=== PATIENT | female | born 1940 | race Caucasian/White ===

== ENCOUNTER → 2016-12-08 | Outpatient (CLI) | payer MEDICARE ==
[~2016-12-08] MED LIST: DENOSUMAB 60 MG/ML 1 ML SYRINGE SQ ONE
[2016-12-08 11:57] VITALS: BP 184/89; PULSE 72; RESP 16; TEMP 98.1
== END ==
LOC: PROCWHC3 10:55
PROVIDERS: ATTEND Internal Medicine Endocrinology, Diabetes & Metabolism
DX: M81.0 Age-related osteoporosis without current pathological fracture (principal)
CPT/HCPCS: 96372; J0897

== ENCOUNTER → 2017-02-01 | Outpatient (CLI) | payer MEDICARE ==
--- NOTE | 2017-02-02 07:54 | US ---
EXAMINATION TYPE: US carotid duplex BILAT DATE OF EXAM: 02/01/2017 COMPARISON: NONE CLINICAL HISTORY: Aortic Regurgitation I35.1. Multiple TIA; diabetic EXAM MEASUREMENTS: RIGHT: Peak Systolic Velocity (PSV) cm/sec ----- Right CCA: 50.2 ----- Right ICA: 101.8 ----- Right ECA: 52.5 ICA/CCA ratio: 2.0 RIGHT: End Diastole cm/sec ----- Right CCA: 15.0 ----- Right ICA: 36.1 ----- Right ECA: 11.8 LEFT: Peak Systolic Velocity (PSV) cm/sec ----- Left CCA: 74.0 ----- Left ICA: 74.0 ----- Left ECA: 52.6 ICA/CCA ratio: 1.0 LEFT: End Diastole cm/sec ----- Left CCA: 14.7 ----- Left ICA: 18.4 ----- Left ECA: 7.2 VERTEBRALS (direction of flow): Right Vertebral: Antegrade Left Vertebral: Antegrade High bifurcation is noted bilaterally with mild intimal wall thickening also noted bilaterally and PS V is wnl; tortuous CCA is noted bilaterally. IMPRESSION: There is antegrade flow in the vertebral arteries. The images and measurements suggest 1 0-15% stenosis in both internal carotid arteries. There are tortuous carotid arteries. Criteria for Assigning % of Stenosis / Diameter reduction (Estimation based on the indirect measurements of the internal carotid artery velocities (ICA PSV). 1. Normal (no stenosis)=ICA PSV < 125 cm/s: ratio < 2.0: ICA EDV<40 cm/s. 2. Less than 50% stenosis=ICA PSV < 125 cm/s: ratio < 2.0: ICA EDV<40 cm/s. 3. 50 to 69% stenosis=ICA PSV of 125 to 230 cm/s: ration 2.0 ? 4.0: ICA EDV 40-100 cm/s. 4. Greater than 70% stenosis to near occlusion= ICA PSV > 230 cm/s: ratio > 4.0: ICA EDV > 100 cm/s. 5. Near occlusion= ICA PSV velocities may be low or undetectable: variable ratio and ICA EDV. 6. Total occlusion=unable to detect flow.
== END | disposition home or self-care (01) ==
LOC: RADUSWWP 15:01
PROVIDERS: ATTEND Thoracic Surgery (Cardiothoracic Vascular Surgery)
DX: I35.1 Nonrheumatic aortic (valve) insufficiency (principal)
CPT/HCPCS: 93880

== ENCOUNTER → 2017-02-23 | Outpatient (CLI) | payer MEDICARE ==
[2017-02-23 09:01] LABS: EKG EKG PERFORMED
[2017-02-23 09:53] LABS: CHCM 30.3; HCT 35.1 % (34.0-46.0); HDW 3.08; HGB 10.8 gm/dL (11.4-16.0); Hypochromasia Marked; MCH 19.6 pg (25.0-35.0); MCHC 30.9 g/dL (31.0-37.0); MCV 63.3 fL (80.0-100.0); Mean Platelet Volume 6.9; Microcytosis Marked; RBC 5.54 m/uL (3.80-5.40); RDW 15.7 % (11.5-15.5); WBC 6.8 k/uL (3.8-10.6)
[2017-02-23 10:14] LABS: ALT 40 U/L (9-52); AST 21 U/L (14-36); Alkaline Phosphatase 65 U/L (38-126); Anion Gap 12 mmol/L; Blood Urea Nitrogen 24 mg/dL (7-17); Calcium 9.6 mg/dL (8.4-10.2); Carbon Dioxide 28 mmol/L (22-30); Chloride 104 mmol/L (98-107); Cholesterol 152 mg/dL (<200); Glucose 242 mg/dL (74-99); HDL Cholesterol 57 mg/dL (40-60); Magnesium 1.7 mg/dL (1.6-2.3); Non-African American GFR(MDRD) 41 (>60 ml/min/1.73 sqM); Potassium 3.3 mmol/L (3.5-5.1); Sodium 144 mmol/L (137-145); Total Bilirubin 0.6 mg/dL (0.2-1.3); Triglycerides 201 mg/dL (<150)
[2017-02-23 10:34] LABS: INR 1.1 (<1.2)
[2017-02-23 10:35] LABS: Prothrombin Time 11.3 sec (9.0-12.0)
[2017-02-23 10:36] LABS: Hepatitis B Surface Ag Index 0.05
[2017-02-23 10:42] LABS: Hepatitis B Core IgM Index 0.02
[2017-02-23 10:54] LABS: Hepatitis C Virus IgG Ab Negative (Negative); Hepatitis C Virus IgG Index 0.06
[2017-02-23 11:03] LABS: Partial Thromboplastin Time 21.6 sec (22.0-30.0)
[2017-02-23 11:32] LABS: Appearance,Urine Clear (Clear); Bacteria,Urine Rare /hpf; Bilirubin,Urine Negative (Negative); Glucose,Urine (UA) 3+ (Negative); Granular Casts,Urine 1 /lpf (0); Ketones,Urine Negative (Negative); Leukocyte Esterase,Urine Small (Negative); Mucus,Urine Rare /hpf; Nitrite,Urine Negative (Negative); PH, Urine 6.5 (5.0-8.0); Particle Count 1272; Protein,Urine Negative (Negative); RBC,Urine <1 /hpf (0-5); Specific Gravity,Urine 1.013 (1.001-1.035); Squamous Epithelial Cell,Urine 1 /hpf (0-4); UA Billing (MACRO vs. MICRO) MICRO; Urobilinogen,Urine <2.0 mg/dL (<2.0); WBC,Urine 4 /hpf (0-5)
--- NOTE | 2017-02-23 13:36 | XR ---
EXAMINATION TYPE: XR chest 2V DATE OF EXAM: 02/23/2017 COMPARISON: None HISTORY: 76-year-old female preoperative evaluation, aortic valve stenosis. TECHNIQUE: Frontal and lateral views FINDINGS: The heart is borderline to mildly enlarged. Minimal elongation of the thoracic aorta. Mild interstiti al prominence has a chronic appearance. Strandy atelectasis at the left base. No consolidation or ple ural effusion. IMPRESSION: Borderline to mild cardiomegaly. Chronic appearing changes without acute process.
[2017-02-23 15:23] LABS: Hemoglobin A1C 7.5 % (4.2-6.1)
== END | disposition home or self-care (01) ==
LOC: LABPAT 08:54
PROVIDERS: ATTEND Thoracic Surgery (Cardiothoracic Vascular Surgery)
DX: Z01.810 Encounter for preprocedural cardiovascular examination (principal); I51.7 Cardiomegaly; J98.4 Other disorders of lung
CPT/HCPCS: 71020; 80053; 80061; 80074; 81001; 83036; 83735; 83880; 84443; 84484; 85027; 85610; 85730; 86850; 86900; 86901; 86920; 87070; 87086; 93005; 93923; 93970; 94150

== ENCOUNTER 2017-03-04 05:44 | Inpatient (IN) | payer MEDICARE ==
[~2017-03-04 05:44] MED LIST changes: +ALBUMIN HUMAN 25% 50 ML IV ONE; +ALBUMIN HUMAN 5% 250 ML IVPB ONE; +AMINOCAPROIC ACID 250 MG/ML 20 ML VIAL IV ONE; +AMINOCAPROIC ACID 5,000 MG in DEXTROSE 5% IN WATER 50 ML IV ONE; +ASPIRIN 325 MG TAB PO ONE; +ATORVASTATIN 10 MG TAB PO ONE; +CALCIUM CHLORIDE 100 MG/ML 10 ML SYRINGE IV ONE; +CHLORHEXIDINE GLUCONATE 15 ML CUP MUCOUS MEM ONE; +CLEVIDIPINE BUTYRATE 25 MG in EMPTY BAG 1 BAG IV ONE; -DENOSUMAB 60 MG/ML 1 ML SYRINGE SQ ONE; +DEXTROSE 5% IN WATER 1,000 ML with POTASSIUM CHLORIDE 110 MEQ, MAGNESIUM SULFATE 16 MEQ... IV SCH; +DEXTROSE 5% IN WATER 1,000 ML with POTASSIUM CHLORIDE 25 MEQ, SODIUM CHLORIDE 4MEQ/ML V... IV SCH; +HEPARIN SODIUM 1,000 UN/ML (10ML VL) IV ONE; +HEPARIN SODIUM,PORCINE 5,000 UNIT in SODIUM CHLORIDE 0.9% 500 ML IV ONE; +INSULIN REGULAR 100 UNIT in SODIUM CHLORIDE 0.9% 100 ML IV ONE; +MAGNESIUM SULFATE MG 500 MG/ML VIAL IV ONE; +MANNITOL 25% 12.5 GM/50 ML VIAL IV ONE; +METOPROLOL TARTRATE 12.5 MG TAB PO ONE; +NITROGLYCERIN-D5W PMX 25 MG/250 ML BTL IV ONE; +NITROGLYCERIN-D5W PMX 50 MG in DEXTROSE/WATER 1 250ML.BAG IV ONE; +NOREPINEPHRIN 4 MG-0.9% NS PMX 4 MG/250 ML ML IV ONE; +PHENYLEPHRINE 40 MG in SODIUM CHLORIDE 0.9% 250 ML IV ONE; +PHENYLEPHRINE-0.9% NACL SYG 1 MG/10 ML SYRINGE IV ONE; +PROPOFOL 1,000 MG/100 ML VIAL IV ONE; +PROTAMINE SULFATE 10 MG/ML 25 ML VIAL IV ONE; +PROTAMINE SULFATE 250 MG in EMPTY BAG 1 BAG IV ONE; +SODIUM BICARB 8.4% 50 ML SYR (1 MEQ/ML) IV ONE; +VANCOMYCIN 1,000 MG in SODIUM CHLORIDE 0.9% 100 ML IVPB ONE; +VANCOMYCIN 1,000 MG in SODIUM CHLORIDE 0.9% IRRIGATIO 1,000 ML IRRIGATION ONE
[2017-03-04] MEDS ORDERED: ALBUMIN HUMAN 5% 500 ML IVPB ONE (06:00)
[2017-03-04 06:23] LABS: Glucose,Whole Blood 209 mg/dL (75-99)
[2017-03-04] MEDS ORDERED: SODIUM CHLORIDE 0.9% IRRIG 1,000 ML BTL IRRIGATION ONE ×2 (09:00→19:13)
[2017-03-04] MEDS ORDERED: PHENYLEPHRINE-0.9% NACL SYG 1 MG/10 ML SYRINGE ONE (09:00)
[2017-03-04] MEDS ORDERED: HEPARIN SODIUM,PORCINE 10,000 UNIT/ML 1 ML VIAL ONE (09:00)
[2017-03-04] MEDS ORDERED: MUPIROCIN 2% OINT 22 GM TUBE NASAL SCH (09:00)
[2017-03-04] MEDS ORDERED: PROTAMINE SULFATE 10 MG/ML 25 ML VIAL IV ONE (09:00)
[2017-03-04] MEDS ORDERED: LIDOCAINE 1% INJ 10MG/ML (20 ML MDV) ONE (09:00)
[2017-03-04] MEDS ORDERED: fentaNYL (PF) 50 MCG/ML 2 ML AMP ONE (09:00)
[2017-03-04] MEDS ORDERED: fentaNYL (PF) 50 MCG/ML 50 ML VIAL ONE (09:00)
[2017-03-04] MEDS ORDERED: MIDAZOLAM 2 MG/2 ML VIAL ONE ×2 (09:00→19:13)
[2017-03-04] MEDS ORDERED: MAGNESIUM SULFATE 4 MEQ/ML 2 ML VIAL ONE (09:00)
[2017-03-04] MEDS ORDERED: LIDOCAINE 2% SYG (PF) 100 MG/5 ML ONE (09:00)
[2017-03-04] MEDS ORDERED: ALBUMIN HUMAN 5% 250 ML BOTTLE IVPB ONE (09:00)
[2017-03-04] MEDS ORDERED: VECURONIUM 10 MG VIAL IV ONE ×2 (09:00→19:13)
[2017-03-04] MEDS ORDERED: CALCIUM CHLORIDE 100 MG/ML 10 ML SYRINGE ONE (09:00)
[2017-03-04] MEDS ORDERED: PROPOFOL 10 MG/ML 20 ML VIAL IV ONE (09:00)
[2017-03-04 09:52] LABS: Glucose,Whole Blood 195 mg/dL (75-99)
[2017-03-04 10:45] LABS: Glucose,Whole Blood 207 mg/dL (75-99)
[2017-03-04 11:23] LABS: Glucose,Whole Blood 301 mg/dL (75-99)
[2017-03-04 11:42] LABS: Glucose,Whole Blood 267 mg/dL (75-99)
[2017-03-04] MEDS ORDERED: INSULIN REGULAR 100 UNIT in SODIUM CHLORIDE 0.9% 100 ML IV ONE (12:00)
[2017-03-04 12:41] LABS: Glucose,Whole Blood 206 mg/dL (75-99)
[2017-03-04] MEDS ORDERED: Phosphorus Replacement Protoco 1 EACH MISC MISCELLANE PRN (13:34)
[2017-03-04] MEDS ORDERED: METOCLOPRAMIDE 5 MG/ML 2 ML VIAL IVP PRN (13:34)
[2017-03-04] MEDS ORDERED: Magnesium Replacement Protocol 1 EACH MISC MISCELLANE PRN (13:34)
[2017-03-04] MEDS ORDERED: ONDANSETRON 4 MG/2 ML VIAL IVP PRN (13:34)
[2017-03-04] MEDS ORDERED: Potassium Replacement Protocol 1 EACH MISC MISCELLANE PRN ×2 (13:34→16:44)
[2017-03-04] MEDS ORDERED: BENZOCAINE/MENTHOL LOZENG 1 EACH LOZENGE MUCOUS MEM PRN (13:34)
[2017-03-04] MEDS ORDERED: DEXTROSE 5% IN WATER 100 ML with AMIODARONE 150 MG IV ONE (14:05)
[2017-03-04 14:09] LABS: Glucose,Whole Blood 112 mg/dL (75-99)
[2017-03-04 14:24] LABS: ABG Base Excess -3.6 mmol/L; ABG HCO3 23 mmol/L (21-25); ABG PCO2 59 mmHg (35-45); ABG PH 7.22 (7.35-7.45); ABG PO2 83 mmHg (83-108); ABG TCO2 25 mmol/L (19-24)
[2017-03-04 14:25] LABS: ABG Oxygen Saturation 93.4 % (94-97)
[2017-03-04 14:27] LABS: INR 1.4 (<1.2); Partial Thromboplastin Time 30.4 sec (22.0-30.0); Prothrombin Time 13.5 sec (9.0-12.0)
[2017-03-04 14:28] LABS: Ionized Calcium 4.6 mg/dL (4.5-5.3)
[2017-03-04 14:36] LABS: Anisocytosis Slight; Basophils % (A) 0 %; CHCM 29.9; Eosinophils # (A) 0.1 k/uL (0-0.7); Eosinophils % (A) 1 %; HCT 22.9 % (34.0-46.0); Hypochromasia Marked; Luc # (Auto) 0.03; Luc % (Auto) 1; Lymphocytes # (A) 1.5 k/uL (1.0-4.8); Lymphocytes % (A) 24 %; MCH 19.1 pg (25.0-35.0); MCHC 29.8 g/dL (31.0-37.0); Mean Platelet Volume 9.1; Microcytosis Marked; Monocytes # (A) 0.3 k/uL (0-1.0); Monocytes % (A) 5 %; Neutrophils # (A) 4.3 k/uL (1.3-7.7); Neutrophils % (A) 70 %; RBC 3.57 m/uL (3.80-5.40); RDW 16.2 % (11.5-15.5); WBC 6.2 k/uL (3.8-10.6); WBC (Perox) 6.44
[2017-03-04 14:37] LABS: ALT 28 U/L (9-52); AST 42 U/L (14-36); Alkaline Phosphatase 32 U/L (38-126); Anion Gap 9 mmol/L; Blood Urea Nitrogen 17 mg/dL (7-17); Calcium 7.4 mg/dL (8.4-10.2); Carbon Dioxide 25 mmol/L (22-30); Chloride 109 mmol/L (98-107); Glucose 99 mg/dL (74-99); Magnesium 2.5 mg/dL (1.6-2.3); Non-African American GFR(MDRD) 58 (>60 ml/min/1.73 sqM); Potassium 3.3 mmol/L (3.5-5.1); Sodium 143 mmol/L (137-145); Total Bilirubin 0.8 mg/dL (0.2-1.3); Total Protein 4.9 g/dL (6.3-8.2)
[2017-03-04 14:39] LABS: HGB 6.8 gm/dL (11.4-16.0)
--- NOTE | 2017-03-04 14:39 | XR ---
EXAMINATION TYPE: XR chest 1V portable DATE OF EXAM: 03/04/2017 COMPARISON: 02/23/2017 HISTORY: Postoperative evaluation. TECHNIQUE: Single frontal view of the chest is obtained. FINDINGS: Mediastinal drains, enteric tube, Adamant-Ely catheter, cardiac valvular replacement, intact midline sternotomy wires, and mediastinal clips have been placed in the interim. Limited inspiration accentuates the pulmonary vasculature. Soft tissues obscure the costophrenic angles. Cardiomediastin al silhouette is exaggerated by low lung volumes but appears prominent in size. Low lung volumes also create scattered areas of subsegmental atelectasis. IMPRESSION: Postsurgical changes, lines and tubes as described above, and Limited inspiration with s cattered atelectasis.
[2017-03-04 14:57] LABS: Polychromasia Present; Toxic Granulation Present
[2017-03-04 15:20] LABS: Glucose,Whole Blood 116 mg/dL (75-99)
[2017-03-04] MEDS ORDERED: MILRINONE-D5W PMX 20 MG in DEXTROSE/WATER 1 100ML.BAG IV SCH (15:20)
[2017-03-04] MEDS: CLEVIDIPINE BUTYRATE 25 MG in EMPTY BAG 1 BAG IV SCH ×2 (15:23→22:10)
[2017-03-04] MEDS: LACTATED RINGERS 1,000 ML IV SCH (15:24)
[2017-03-04] MEDS: AMIODARONE 450 MG in DEXTROSE 5% IN WATER 250 ML IV SCH ×4 (15:24→23:38)
[2017-03-04] MEDS: MILRINONE-D5W PMX 20 MG in DEXTROSE/WATER 1 100ML.BAG IV SCH (15:30)
[2017-03-04] MEDS ORDERED: ALBUMIN HUMAN 5% 250 ML in EMPTY BAG 1 BAG IVPB ONE (16:00)
[2017-03-04 16:10] LABS: ABG Base Excess -4.5 mmol/L; ABG HCO3 21 mmol/L (21-25); ABG PCO2 45 mmHg (35-45); ABG PH 7.29 (7.35-7.45); ABG PO2 169 mmHg (83-108); ABG TCO2 22 mmol/L (19-24)
[2017-03-04] MEDS: IPRATROPIUM-ALBUTEROL 3 ML NEB INHALATION SCH ×3 (16:20→23:45)
[2017-03-04 16:22] LABS: Glucose,Whole Blood 152 mg/dL (75-99)
--- NOTE | 2017-03-04 16:46 | OP ---
DATE OF SURGERY: 03/04/2017 ATTENDING SURGEON: Dr. Han Aguirre PREOPERATIVE DIAGNOSIS: Critical aortic stenosis with aortic insufficiency. POSTOPERATIVE DIAGNOSIS: Bicuspid aortic valve with aortic stenosis. PROCEDURE: Aortic valve replacement with a #25 mm Magna-Ease bioprosthetic aortic valve, a clip ligation into left atrial appendage with a #35 mm AtriClip and intraoperative transesophageal echocardiogram. ANESTHESIA: General. BLOOD LOSS: ( ) mL. SUMMARY: The patient was brought to the operating room and placed in supine position. Administration of a general endotracheal anesthetic, placement of a Anabel-Ely catheter, arterial line, adequate IV access, Cuellar catheter. Patient was carefully prepped and draped in the normal sterile fashion using ( ) and sterile towels. A midline incision in the chest was made ( ) divided. Pericardium was opened. Heart size was normal caliber. The left ventricle was thickened. The aorta was soft. Patient was heparinized ( ). The aorta and vena cava were cannulated ( ) cardiopulmonary catheter was positioned in the ascending aorta and the coronary sinus. Patient was placed on bypass, cross- clamp placed. The heart was arrested with 1 liter ( ) 500 mL retrograde cardioplegia. Retrograde cardioplegia was delivered ( ) mL each 20-minute interval. First the base of the left atrial appendage was measured. It measured to a 35 mm AtriClip. The clip was brought into the field, opened, secured at the base, officially obliterating the left atrial appendage. Next a transverse aorta ( ) incision was made 2 cm distal to the takeoff of the right coronary artery. Hand-held retractor was placed. The aortic valve was calcified but was bicuspid. The leaflets were carefully excised, the annulus debrided, and it was irrigated out copiously with 2 liters of cold saline. It sized to a # 25 mm Magna-Ease bioprosthetic aortic valve. 2-0 Ticron pledgeted sutures were placed, ventricularly based, circumferentially. These were then passed through the ( ) of the valve which had been prepared in the usual fashion. The valve was then seated and seated well. All sutures were then secured using the Cor-Knot ligature system. The aorta ( ) main incision was then closed with 2 felt strip buttresses using a 4-0 Prolene non-pledgeted vertical mattress followed by an [id number] stitch from both sides. ( ) the patient was placed head down. One liter of warm ( ) blood retrograde cardioplegia was run. Cross clamp was removed after complete de-airing maneuvers were performed 3 times. Once being in normal sinus rhythm at a low rate, atrioventricular pacing wires were placed. Pacing was paced DDD at 70 and brought off bypass. Patient came off bypass uneventfully with good hemodynamics. Protamine delivered. Patient decannulated. Atrioventricular pacing wires were placed. Mediastinal and left pleural chest tubes were placed. At this point the sternum was closed with 7 #6 sternal wires. Skin and subcutaneous tissue and fascia were closed in 3 layers. No complications. Patient tolerated the procedure well and was taken to the cardiovascular intensive care unit in stable condition. SIMONA
[2017-03-04 17:26] LABS: ABG Base Excess -4.6 mmol/L; ABG HCO3 20 mmol/L (21-25); ABG PCO2 35 mmHg (35-45); ABG PH 7.37 (7.35-7.45); ABG PO2 180 mmHg (83-108); ABG TCO2 21 mmol/L (19-24)
[2017-03-04 17:31] LABS: Glucose,Whole Blood 187 mg/dL (75-99)
[2017-03-04 18:08] LABS: Anisocytosis Moderate; Basophils % (A) 0 %; CH 22.2; CHCM 31.9; Eosinophils % (A) 1 %; HCT 23.4 % (34.0-46.0); HDW 3.65; HGB 7.3 gm/dL (11.4-16.0); Hypochromasia Moderate; Luc # (Auto) 0.06; Luc % (Auto) 1; Lymphocytes # (A) 0.9 k/uL (1.0-4.8); Lymphocytes % (A) 14 %; MCH 21.7 pg (25.0-35.0); Mean Platelet Volume 8.4; Microcytosis Marked; Monocytes # (A) 0.3 k/uL (0-1.0); Monocytes % (A) 4 %; Neutrophils # (A) 5.4 k/uL (1.3-7.7); Neutrophils % (A) 81 %; Poikilocytosis Slight; RBC 3.35 m/uL (3.80-5.40); RDW 21.1 % (11.5-15.5); WBC 6.7 k/uL (3.8-10.6); WBC (Perox) 7.18
[2017-03-04 18:09] LABS: INR 1.3 (<1.2); Partial Thromboplastin Time 26.2 sec (22.0-30.0); Prothrombin Time 12.5 sec (9.0-12.0)
[2017-03-04 18:11] LABS: Glucose,Whole Blood 278 mg/dL (75-99)
[2017-03-04 18:13] LABS: MCV 69.8 fL (80.0-100.0)
[2017-03-04 18:15] LABS: Ionized Calcium 3.5 mg/dL (4.5-5.3)
[2017-03-04 18:24] LABS: Magnesium 2.3 mg/dL (1.6-2.3)
[2017-03-04] MEDS ORDERED: ATROPINE SULFATE 0.1 MG/ML 10ML SYRINGE ONE (19:03)
[2017-03-04] MEDS ORDERED: EPINEPHrine 10 ML SYRINGE (0.1 MG/ML) ONE (19:03)
[2017-03-04] MEDS ORDERED: CISATRACURIUM 2 MG/ML 5 ML VIAL IV ONE (19:05)
[2017-03-04] MEDS ORDERED: ALBUMIN HUMAN 5% 500 ML VIAL IVPB ONE (19:13)
[2017-03-04] MEDS ORDERED: SODIUM BICARB 8.4% 50 ML SYR (1 MEQ/ML) ONE (19:13)
[2017-03-04] MEDS: ceFAZolin 2 GM in SODIUM CHLORIDE 0.9% 100 ML IVPB SCH (19:31)
[2017-03-04 19:33] LABS: Glucose,Whole Blood 275 mg/dL (75-99)
[2017-03-04 20:13] LABS: Glucose,Whole Blood 258 mg/dL (75-99)
[2017-03-04 20:36] LABS: Glucose,Whole Blood 216 mg/dL (75-99)
[2017-03-04 21:57] LABS: Glucose,Whole Blood 155 mg/dL (75-99)
[2017-03-04] MEDS: INSULIN REGULAR 100 UNIT in SODIUM CHLORIDE 0.9% 100 ML IV SCH (22:00)
[2017-03-04] MEDS: PROPOFOL 1,000 MG/100 ML VIAL IV SCH (22:00)
[2017-03-04 22:18] LABS: Anisocytosis Moderate; CH 24.6; CHCM 33.1; HDW 3.99; HGB 8.2 gm/dL (11.4-16.0); Hypochromasia Slight; MCH 24.1 pg (25.0-35.0); MCHC 32.6 g/dL (31.0-37.0); Mean Platelet Volume 9.9; Microcytosis Marked; Poikilocytosis Slight; RBC 3.38 m/uL (3.80-5.40); RDW 22.4 % (11.5-15.5); WBC 7.7 k/uL (3.8-10.6)
[2017-03-04 22:27] LABS: INR 1.5 (<1.2); Partial Thromboplastin Time 32.3 sec (22.0-30.0); Prothrombin Time 14.8 sec (9.0-12.0)
[2017-03-04] MEDS: ACETAMINOPHEN IV (For NPO) 1,000 MG in EMPTY BAG 1 BAG IVPB SCH (22:40)
[2017-03-04 22:54] LABS: Anion Gap 12 mmol/L; Blood Urea Nitrogen 17 mg/dL (7-17); Carbon Dioxide 24 mmol/L (22-30); Chloride 108 mmol/L (98-107); Glucose 148 mg/dL (74-99); Magnesium 1.9 mg/dL (1.6-2.3); Non-African American GFR(MDRD) 52 (>60 ml/min/1.73 sqM); Phosphorous 2.2 mg/dL (2.5-4.5); Potassium 3.3 mmol/L (3.5-5.1); Sodium 144 mmol/L (137-145)
[2017-03-04 22:57] LABS: Calcium 6.5 mg/dL (8.4-10.2)
[2017-03-04] MEDS: NOREPINEPHRIN 4 MG-0.9% NS PMX 4 MG/250 ML ML IV SCH (23:00)
[2017-03-04 23:17] LABS: Glucose,Whole Blood 160 mg/dL (75-99)
[2017-03-04] MEDS ORDERED: SODIUM PHOSPHATE 10 MMOL in SODIUM CHLORIDE 0.9% 250 ML IVPB ONE (23:20)
--- NOTE | 2017-03-04 23:21 | XR ---
EXAM: XR Chest, 1 View CLINICAL HISTORY: Reason: post cabg line placement, tube placement TECHNIQUE: Frontal view of the chest. COMPARISON: 03/04/17. FINDINGS/IMPRESSION: 1. Overall improved lung aeration with no new or worsening cardiomegaly disease. No visible pneumothorax. 2. Stable support devices. 3. Redemonstration of vascular congestion and interstitial edema as well as left basilar subsegmental atelectasis.
[2017-03-04] MEDS: HEPARIN SODIUM,PORCINE 5,000 UNIT/ML 1 ML VIAL SQ SCH (23:22)
[2017-03-04] MEDS: POTASSIUM CHLORIDE 10 MEQ in WATER FOR INJECTION 1 100ML.BAG IVPB SCH ×2 (23:22→23:34)
[2017-03-04] MEDS: CALCIUM GLUCONATE 2,000 MG in SODIUM CHLORIDE 0.9% 100 ML IVPB PRN (23:22)
[2017-03-04 23:55] LABS: Glucose,Whole Blood 152 mg/dL (75-99)
[2017-03-05 01:08] LABS: Glucose,Whole Blood 131 mg/dL (75-99)
[2017-03-05] MEDS: MUPIROCIN 2% OINT 22 GM TUBE NASAL SCH ×3 (01:24→21:04)
[2017-03-05] MEDS: ACETAMINOPHEN IV (For NPO) 1,000 MG in EMPTY BAG 1 BAG IVPB SCH ×4 (01:26→17:23)
[2017-03-05] MEDS: ceFAZolin 2 GM in SODIUM CHLORIDE 0.9% 100 ML IVPB SCH ×2 (01:26→08:24)
[2017-03-05 01:27] LABS: Anisocytosis Moderate; CH 24.2; CHCM 33.2; HCT 26.5 % (34.0-46.0); HDW 4.25; HGB 8.6 gm/dL (11.4-16.0); Hypochromasia Slight; MCH 23.6 pg (25.0-35.0); MCHC 32.6 g/dL (31.0-37.0); MCV 72.6 fL (80.0-100.0); Mean Platelet Volume 8.3; Microcytosis Marked; Poikilocytosis Moderate; RBC 3.65 m/uL (3.80-5.40); RDW 21.4 % (11.5-15.5); WBC 9.2 k/uL (3.8-10.6)
[2017-03-05] MEDS: ALBUMIN HUMAN 5% 250 ML in EMPTY BAG 1 BAG IVPB PRN ×2 (01:30→03:32)
[2017-03-05 02:08] LABS: Glucose,Whole Blood 120 mg/dL (75-99)
[2017-03-05 03:15] LABS: Glucose,Whole Blood 106 mg/dL (75-99)
[2017-03-05] MEDS: IPRATROPIUM-ALBUTEROL 3 ML NEB INHALATION SCH ×5 (03:19→20:12)
[2017-03-05] MEDS: MORPHINE SULFATE 2 MG/ML SYRINGE IVP PRN ×2 (03:52→23:31)
[2017-03-05 04:06] LABS: Glucose,Whole Blood 108 mg/dL (75-99)
[2017-03-05 04:20] LABS: Ionized Calcium 4.1 mg/dL (4.5-5.3)
[2017-03-05 04:31] LABS: Anisocytosis Moderate; CHCM 33.5; Calcium 7.2 mg/dL (8.4-10.2); HGB 8.2 gm/dL (11.4-16.0); Hypochromasia Slight; MCH 23.5 pg (25.0-35.0); Magnesium 1.9 mg/dL (1.6-2.3); Microcytosis Marked; Poikilocytosis Moderate; Potassium 3.7 mmol/L (3.5-5.1); Total Bilirubin 1.5 mg/dL (0.2-1.3); Total Protein 4.7 g/dL (6.3-8.2)
[2017-03-05 04:34] LABS: CH 24.6; HCT 25.5 % (34.0-46.0); HDW 4.26; MCHC 32.2 g/dL (31.0-37.0); Mean Platelet Volume 8.8; RBC 3.49 m/uL (3.80-5.40); WBC 7.4 k/uL (3.8-10.6); WBC (Perox) 7.78
[2017-03-05 04:35] LABS: INR 1.4 (<1.2); Partial Thromboplastin Time 26.9 sec (22.0-30.0); Prothrombin Time 13.8 sec (9.0-12.0)
[2017-03-05 04:56] LABS: Add Differential Manual Differential
[2017-03-05 04:58] LABS: Basophilic Stippling Present; Manual Review Performed; Nucleated Red Blood Cells 0 /100 WBC (0-0); Total Cells Counted 200
[2017-03-05 05:19] LABS: Glucose,Whole Blood 129 mg/dL (75-99)
[2017-03-05] MEDS: PROPOFOL 1,000 MG/100 ML VIAL IV SCH ×3 (05:21→22:40)
[2017-03-05] MEDS: HEPARIN SODIUM,PORCINE 5,000 UNIT/ML 1 ML VIAL SQ SCH ×3 (05:32→21:04)
[2017-03-05] MEDS: AMIODARONE 450 MG in DEXTROSE 5% IN WATER 250 ML IV SCH ×4 (05:34→14:30)
[2017-03-05 05:39] LABS: ABG Base Excess -0.5 mmol/L; ABG HCO3 24 mmol/L (21-25); ABG PCO2 43 mmHg (35-45); ABG PH 7.37 (7.35-7.45); ABG PO2 56 mmHg (83-108); ABG TCO2 26 mmol/L (19-24)
[2017-03-05] MEDS: CALCIUM GLUCONATE 2,000 MG in SODIUM CHLORIDE 0.9% 100 ML IVPB PRN (05:59)
[2017-03-05] MEDS: MAGNESIUM SULFATE-D5W PMX 1 GM in DEXTROSE/WATER 1 100ML.BAG IVPB SCH ×2 (05:59→08:21)
[2017-03-05 06:20] LABS: Glucose,Whole Blood 138 mg/dL (75-99)
[2017-03-05] MEDS ORDERED: FUROSEMIDE 10 MG/ML 4 ML VIAL IV STA (06:33)
[2017-03-05] MEDS: MILRINONE-D5W PMX 20 MG in DEXTROSE/WATER 1 100ML.BAG IV SCH ×2 (06:40→19:01)
--- NOTE | 2017-03-05 07:21 | P.CRDCN ---
History of Present Illness Consult date: 03/04/17 Reason for Consult (text): Status post aortic valve replacement History of present illness: This is 76-year-old female was having symptoms of exertional shortness of breath and episodes of syncope. Patient was evaluated by Dr. STELLA Lazaro and she was found to have significant aortic stenosis. Patient had a SORUAV and also cardiac catheterization. She was being considered for a TAVR approach for aortic valve replacement. He apparently she was found to have bicuspid aortic valve and was not felt to be candidate for percutaneous replacement. Patient had open-heart aortic wall replacement with bioprosthetic valve. Patient is just brought back to the ICU. Patient had issues with hypotension. Patient also had a new onset atrial fibrillation. Patient was started on amiodarone and also Dayron-Synephrine. Her blood pressure is more stable. There is also some issues with the drainage from the chest tubes which is being addressed. Patient is intubated and sedated. 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 Past Anesthesia/Blood Transfusion Reactions: No Reported Reaction Smoking Status: Never smoker - Past Family History Mother Family Medical History: No Reported History Medications and Allergies Home Medications Medication Instructions Recorded Confirmed Type Acetaminophen/Diphenhydramine 1 tab PO HS PRN 07/17/16 03/04/17 History [Tylenol PM 500-25mg] Albuterol Sulfate [Proair Hfa] 2 puff INHALATION RT-Q6H PRN 07/17/16 03/04/17 History Aspirin EC [Ecotrin Low Dose] 81 mg PO DAILY 07/17/16 03/04/17 History Atenolol [Tenormin] 25 mg PO DAILY 07/17/16 03/04/17 History Calcium Carb-Vit D 500Mg-200Un 1 tab PO DAILY 07/17/16 03/04/17 History [Oscal 500+D] Cyanocobalamin [Vitamin B-12] 2,500 mcg PO DAILY 07/17/16 03/04/17 History Fenofibrate [Lofibra] 160 mg PO DAILY 07/17/16 03/04/17 History Lisinopril [Zestril] 10 mg PO DAILY 07/17/16 03/04/17 History Pravastatin Sodium [Pravachol] 40 mg PO HS 07/17/16 03/04/17 History amLODIPine [Norvasc] 5 mg PO DAILY 07/17/16 03/04/17 History Chlorpheniramine Maleate 4 mg PO HS 02/23/17 03/04/17 History [Chlor-Trimeton] Insulin Aspart [NovoLOG] See Protocol SQ-PUMP CONTINUOUS 02/23/17 03/04/17 History Ofloxacin 0.3% Ophth Soln [Ocuflox 1 drops RIGHT EYE QID 02/23/17 03/04/17 History Ophth Soln] prednisoLONE ACETATE 1% OPHTH 1 drops RIGHT EYE QID 02/23/17 03/04/17 History [Pred Forte 1%] Aspirin 325 mg PO ONCE 03/04/17 03/04/17 History Ibuprofen [Advil] 200 mg PO Q8HR PRN 03/04/17 03/04/17 History Weekly D3 Vitamin 35,000 unit PO Q7D 03/04/17 03/04/17 History Allergies Allergy/AdvReac Type Severity Reaction Status Date / Time codeine Allergy Rash/Hives Verified 03/04/17 06:16 metformin [From Glucophage] Allergy Nausea & Verified 03/04/17 06:16 Vomiting orange Allergy Rash/Hives Verified 03/04/17 06:16 adhesive tape AdvReac Rash/Hives Verified 03/04/17 06:16 milk AdvReac Abdominal Verified 03/04/17 06:16 Pain Penicillins AdvReac Nausea Verified 03/04/17 06:16 Physical Exam Vitals: Vital Signs Temp Pulse Pulse Resp BP Pulse Ox 03/05/17 06:00 69 14 96 03/05/17 05:30 69 14 91 L 03/05/17 05:00 69 14 94 L 03/05/17 04:30 70 14 88 L 03/05/17 04:00 69 60 14 91 L 03/05/17 03:33 69 03/05/17 03:19 69 03/05/17 03:00 69 14 93 L 03/05/17 02:30 69 14 93 L 03/05/17 02:00 72 14 92 L 03/05/17 01:30 69 14 94 L 03/05/17 01:00 69 13 95 03/05/17 00:30 69 14 92 L 03/05/17 00:00 73 60 13 92 L 03/04/17 23:50 69 03/04/17 23:30 69 14 95 03/04/17 23:00 69 13 95 03/04/17 22:30 69 16 96 03/04/17 22:00 69 16 95 03/04/17 19:00 60 03/04/17 18:45 60 17 03/04/17 18:30 54 L 19 03/04/17 18:15 162 H 17 03/04/17 18:00 97.0 F L 66 16 100 03/04/17 17:45 89 18 03/04/17 17:30 79 16 03/04/17 17:15 115 H 16 03/04/17 17:00 86 15 03/04/17 16:45 88 16 03/04/17 16:35 86 03/04/17 16:30 76 15 03/04/17 16:20 81 03/04/17 16:15 80 16 03/04/17 16:00 97.0 F L 59 L 60 16 68/40 100 03/04/17 15:45 70 16 03/04/17 15:30 58 L 13 03/04/17 15:15 68 16 03/04/17 15:00 95.7 F L 74 15 03/04/17 14:45 77 03/04/17 14:30 74 03/04/17 14:15 59 L 03/04/17 14:00 95.5 F L 73 Intake and Output 03/04/17 03/05/17 03/05/17 22:59 06:59 14:59 Intake Total 2671.812 2067.429 Output Total 1313 517 Balance 4385.729 1443.429 Intake: IV 455 1550 ACETAMINOPHEN IV (For NPO 100 ) 1,000 mg In Empty Bag 1 bag @ 400 mls/hr IVPB Q6HR [facility] Rx#:[id number] Albumin Human 5% 250 ml 500 In Empty Bag 1 bag @ 250 mls/hr IVPB ONCE ONE Rx#: [id number] Calcium Gluconate 2,000 100 mg In Sodium Chloride 0.9 % 100 ml @ 100 mls/hr IVPB ONCE PRN Rx#: [id number] Lactated Ringers 1,000 ml 455 400 @ 50 mls/hr IV .Q20H [facility] Rx#:[id number] Magnesium Sulfate-D5w Pmx 100 1 gm In Dextrose/Water 1 100ml.bag @ 100 mls/hr IVPB Q1H [facility] Rx#: [id number] Sodium Phosphate 10 mmol 250 In Sodium Chloride 0.9% 250 ml @ 125 mls/hr IVPB ONCE ONE Rx#:[id number] ceFAZolin 2 gm In Sodium 100 Chloride 0.9% 100 ml @ 100 mls/hr IVPB Q8HR [facility] Rx#:[id number] Intake, IV Titration 220.812 517.429 Amount Amiodarone 450 mg In 219.978 98.849 Dextrose 5% in Water 250 ml @ 1 MG/MIN 33.33 mls/ hr IV .Q7H31M [facility] Rx#: [id number] Clevidipine Butyrate 25 0.834 4.667 mg In Empty Bag 1 bag @ 1 MG/HR 2 mls/hr IV .Q24H [facility] Rx#:[id number] Insulin Regular 100 unit 10.59 In Sodium Chloride 0.9% 100 ml @ Per Protocol IV .Q0M [facility] Rx#:[id number] Milrinone-D5w Pmx 20 mg 100 In Dextrose/Water 1 100ml .bag @ 0.3 MCG/KG/MIN 6. 77 mls/hr IV .[id number] [facility] Rx#:[id number] Norepinephrin 4 mg-0.9% 220.312 Ns Pmx 4 mg In 250 ml @ Titrate IV .Q0M [facility] Rx#: [id number] Propofol 1,000 mg In 100 83.011 ml @ Titrate IV .Q0M [facility] Rx#:[id number] Blood Product 1996 Ffp 24 Cpd Unit 317 [id number] Ffp 24 Cpd Unit 324 [id number] Platelet Pheresis Acda 425 Unit [id number] Rc As-1 Unit 310 [id number] Rc As-3 Unit 310 [id number] Rc As-3 Unit 0 [id number] Rc Pheresis 2 As3 Unit 310 [id number] Output: Chest Tube Drainage 1031 274 Left Lateral Chest 36 53 Mediastinal x 2 995 221 Urine 282 243 Other: Voiding Method Indwelling Catheter Indwelling Catheter Weight 85.3 kg ABP, PAP, CO, CI - Last 8 Hours Arterial Blood Pressure 134/50 Arterial Blood Pressure 134/50 Arterial Blood Pressure 88/40 Arterial Blood Pressure 153/58 Arterial Blood Pressure 110/51 Arterial Blood Pressure 120/54 Arterial Blood Pressure 116/51 Arterial Blood Pressure 115/50 Arterial Blood Pressure 147/57 Arterial Blood Pressure 128/52 Arterial Blood Pressure 79/41 Arterial Blood Pressure 124/49 Arterial Blood Pressure 122/49 Pulmonary Artery Pressure 35/19 Pulmonary Artery Pressure 41/25 Pulmonary Artery Pressure 36/19 Pulmonary Artery Pressure 53/28 Pulmonary Artery Pressure 43/26 Pulmonary Artery Pressure 39/25 Pulmonary Artery Pressure 39/24 Pulmonary Artery Pressure 37/22 Pulmonary Artery Pressure 43/24 Pulmonary Artery Pressure 34/20 Pulmonary Artery Pressure 31/20 Pulmonary Artery Pressure 38/20 Pulmonary Artery Pressure 38/20 Cardiac Output 4.2 Cardiac Output 4 Cardiac Output 4 Cardiac Output 2.8 Cardiac Output 2.8 Cardiac Output 2.6 Cardiac Output 3.1 Cardiac Output 4 Cardiac Output 4 Cardiac Output 4.4 Cardiac Index 2.4 Cardiac Index 2.3 Cardiac Index 1.6 Cardiac Index 1.5 Cardiac Index 1.8 Cardiac Index 2.3 GENERAL EXAM: Patient is intubated and sedated HEENT: Normocephalic. Normal reaction of pupils, equal size, normal range of extraocular motion. No erythema or exudates in the throat. NECK: No masses, no nuchal rigidity. CHEST: No chest wall deformity. LUNGS: Diminished breath sounds at bases HEART: S1 and S2 normal . Irregular heart sounds but distant ABDOMEN: Soft SKIN: No rashes CENTRAL NERVOUS SYSTEM: Deferred EXTREMITIES: No cyanosis, clubbing or edema. Results 03/05/17 04:00 03/05/17 04:00 Cardiac Enzymes 03/04/17 03/05/17 Range/Units 14:05 04:00 AST 42 H 143 H (14-36) U/L Coagulation 03/04/17 03/04/17 03/04/17 Range/Units 14:05 17:30 22:10 PT 13.5 H 12.5 H 14.8 H (9.0-12.0) sec APTT 30.4 H 26.2 32.3 H (22.0-30.0) sec 03/05/17 Range/Units 04:00 PT 13.8 H (9.0-12.0) sec APTT 26.9 (22.0-30.0) sec CBC 03/04/17 03/04/17 03/04/17 Range/Units 14:05 17:30 22:10 WBC 6.2 6.7 7.7 (3.8-10.6) k/uL RBC 3.57 L 3.35 L 3.38 L (3.80-5.40) m/uL Hgb 6.8 L* D 7.3 L 8.2 L (11.4-16.0) gm/dL Hct 22.9 L 23.4 L 25.0 L (34.0-46.0) % Plt Count 94 L D 175 D 109 L (150-450) k/uL 03/05/17 03/05/17 Range/Units 00:47 04:00 WBC 9.2 7.4 (3.8-10.6) k/uL RBC 3.65 L 3.49 L (3.80-5.40) m/uL Hgb 8.6 L 8.2 L (11.4-16.0) gm/dL Hct 26.5 L 25.5 L (34.0-46.0) % Plt Count 129 L 114 L (150-450) k/uL Comprehensive Metabolic Panel 03/04/17 03/04/17 03/05/17 Range/Units 14:05 22:10 04:00 Sodium 143 144 146 H (137-145) mmol/L Potassium 3.3 L 3.3 L 3.7 (3.5-5.1) mmol/L Chloride 109 H 108 H 109 H (98-107) mmol/L Carbon Dioxide 25 24 25 (22-30) mmol/L BUN 17 17 20 H (7-17) mg/dL Creatinine 0.94 1.04 1.10 H (0.52-1.04) mg/dL Glucose 99 148 H 103 H (74-99) mg/dL Calcium 7.4 L 6.5 L* 7.2 L (8.4-10.2) mg/dL AST 42 H 143 H (14-36) U/L ALT 28 67 H (9-52) U/L Alkaline Phosphatase 32 L 26 L (38-126) U/L Total Protein 4.9 L 4.7 L (6.3-8.2) g/dL Albumin 3.4 L 3.2 L (3.5-5.0) g/dL Current Medications Generic Name Dose Route Start Last Admin Trade Name Freq PRN Reason Stop Dose Admin Hydrocodone Bitart/Acetaminophen 2 each 03/05/17 12:55 [place] 5-325 PO Q4HR PRN Severe Pain Hydrocodone Bitart/Acetaminophen 1 each 03/05/17 12:56 [place] 5-325 PO Q4HR PRN Moderate Pain Albuterol/Ipratropium 3 ml 03/04/17 16:00 03/05/17 03:19 Duoneb 0.5 Mg-3 Mg/3 Ml Soln INHALATION 3 ml RT-Q4H [facility] Administration Albuterol/Ipratropium 3 ml 03/05/17 12:57 Duoneb 0.5 Mg-3 Mg/3 Ml Soln INHALATION RT-Q2H PRN Shortness Of Breath Or Wheezing Aspirin 325 mg 03/05/17 09:00 Aspirin PO DAILY [facility] Atorvastatin Calcium 40 mg 03/05/17 09:00 Lipitor PO DAILY [facility] Benzocaine/Menthol 1 each 03/04/17 13:34 Cepacol Lozenge MUCOUS MEM Q2H PRN Sore Throat Bisacodyl 10 mg 03/05/17 12:56 Dulcolax RECTAL DAILY PRN Constipation Clopidogrel Bisulfate 75 mg 03/05/17 09:00 Plavix PO DAILY [facility] Heparin Sodium (Porcine) 5,000 unit 03/04/17 21:00 03/05/17 05:32 Heparin SQ 5,000 unit Q8H [facility] Administration Acetaminophen 1,000 mg/ IV 100 mls @ 400 mls/hr 03/04/17 18:00 03/05/17 06:40 Solution IVPB 03/05/17 18:01 400 mls/hr Q6HR [facility] Administration Albumin Human 250 ml/ IV 250 mls @ 250 mls/hr 03/04/17 13:34 03/05/17 03:32 Solution IVPB 03/06/17 13:35 250 mls/hr Q1HR PRN Administration For Volume Calcium Gluconate 2,000 mg/ 120 mls @ 100 mls/hr 03/04/17 13:34 03/05/17 05: 59 Sodium Chloride IVPB 03/05/17 13:35 100 mls/hr ONCE PRN Administration Ionized Calcium less than 4.4 Cefazolin Sodium 2 gm/ Sodium 100 mls @ 100 mls/hr 03/04/17 16:00 03/05/17 01 :26 Chloride IVPB 03/05/17 08:59 100 mls/hr Q8HR [facility] Administration Clevidipine 25 mg/ IV Solution 50 mls @ 2 mls/hr 03/04/17 13:34 03/04/17 23: 00 IV 0 mg/hr .Q24H [facility] 0 mls/hr Protocol Titration 1 MG/HR Insulin Human Regular 100 unit 101 mls @ 0 mls/hr 03/04/17 13:34 03/05/17 05: 00 / Sodium Chloride IV 2 unit/hr .Q0M [facility] 2.02 mls/hr Protocol Titration Per Protocol Lactated Ringer's 1,000 mls @ 50 mls/hr 03/04/17 13:34 03/04/17 15:24 Lactated Ringers IV 50 mls/hr .Q20H [facility] Administration Propofol 1,000 mg in 100 mls @ 0 mls/hr 03/04/17 13:34 03/05/17 05:21 Diprivan IV 25 mcg/kg/min .Q0M [facility] 11.294 mls/hr Protocol Administration Titrate Amiodarone HCl 450 mg/ 250 mls @ 33.33 mls/hr 03/04/17 14:15 03/05/17 05:34 Dextrose/Water IV 03/05/17 14:16 0.5 mg/min .Q7H31M [facility] 16.66 mls/hr Protocol Administration 1 MG/MIN Milrinone Lactate/Dextrose 20 100 mls @ 6.77 mls/hr 03/04/17 15:15 03/05/17 06:40 mg/ IV Solution IV 0.3 mcg/kg/min .[id number] [facility] 6.77 mls/hr 0.3 MCG/KG/MIN Administration Norepinephrine Bitartrate 4 mg in 250 mls @ 0 mls/hr 03/04/17 23:45 03/05/17 05:44 Levophed-0.9% Nacl 4 Mg/250ml Pmx IV 3 mcg/min .Q0M [facility] 11.25 mls/hr Protocol Titration Titrate Potassium Chloride 10 meq/ IV 100 mls @ 100 mls/hr 03/05/17 05:30 Solution IVPB 03/05/17 07:29 Q1H [facility] Protocol Magnesium Sulfate/Dextrose 1 100 mls @ 100 mls/hr 03/05/17 05:30 03/05/17 05: 59 gm/ IV Solution IVPB 03/05/17 07:29 100 mls/hr Q1H [facility] Administration Magnesium Hydroxide 2,400 mg 03/05/17 12:56 Milk Of Magnesia PO BID PRN Constipation Metoclopramide HCl 10 mg 03/04/17 13:34 Reglan IVP Q4H PRN Nausea And Vomiting Metoprolol Tartrate 12.5 mg 03/05/17 09:00 Lopressor PO BID [facility] Miscellaneous Information 1 each 03/04/17 13:34 Magnesium Per Protocol MISCELLANE DAILY PRN Per Protocol Protocol Miscellaneous Information 1 each 03/04/17 13:34 Phosphorus Per Protocol MISCELLANE DAILY PRN Per Protocol Protocol Miscellaneous Information 1 each 03/04/17 13:34 Potassium Per Protocol MISCELLANE DAILY PRN Per Protocol Protocol Miscellaneous Information 1 each 03/04/17 16:44 Potassium Per Protocol MISCELLANE DAILY PRN Per Protocol Protocol Morphine Sulfate 2 mg 03/04/17 13:34 03/05/17 03:52 Morphine Sulfate (Inj) IVP 2 mg Q2H PRN Administration Severe Pain Mupirocin 1 applic 03/04/17 21:00 03/05/17 01:24 Bactroban Oint NASAL 03/07/17 21:01 1 applic BID [facility] Administration Ondansetron HCl 4 mg 03/04/17 13:34 Zofran IVP Q6HR PRN Nausea And Vomiting Oxycodone HCl 10 mg 03/04/17 13:34 Oxyir PO 03/05/17 13:35 Q4H PRN Severe Pain Oxycodone HCl 5 mg 03/04/17 13:34 Oxyir PO 03/05/17 13:35 Q4H PRN Moderate Pain Pantoprazole Sodium 40 mg 03/05/17 09:00 Protonix IVP DAILY [facility] Senna/Docusate Sodium 2 each 03/05/17 21:00 Senokot-S PO HS [facility] Sodium Chloride 10 ml 03/04/17 21:00 03/04/17 22:41 Saline Flush IV Not Given BID [facility] Intake and Output 03/04/17 03/05/17 03/05/17 22:59 06:59 14:59 Intake Total 2671.812 2067.429 Output Total 1313 517 Balance 9162.950 8553.429 Intake: IV 455 1550 ACETAMINOPHEN IV (For NPO 100 ) 1,000 mg In Empty Bag 1 bag @ 400 mls/hr IVPB Q6HR [facility] Rx#:[id number] Albumin Human 5% 250 ml 500 In Empty Bag 1 bag @ 250 mls/hr IVPB ONCE ONE Rx#: [id number] Calcium Gluconate 2,000 100 mg In Sodium Chloride 0.9 % 100 ml @ 100 mls/hr IVPB ONCE PRN Rx#: [id number] Lactated Ringers 1,000 ml 455 400 @ 50 mls/hr IV .Q20H [facility] Rx#:[id number] Magnesium Sulfate-D5w Pmx 100 1 gm In Dextrose/Water 1 100ml.bag @ 100 mls/hr IVPB Q1H [facility] Rx#: [id number] Sodium Phosphate 10 mmol 250 In Sodium Chloride 0.9% 250 ml @ 125 mls/hr IVPB ONCE ONE Rx#:[id number] ceFAZolin 2 gm In Sodium 100 Chloride 0.9% 100 ml @ 100 mls/hr IVPB Q8HR [facility] Rx#:[id number] Intake, IV Titration 220.812 517.429 Amount Amiodarone 450 mg In 219.978 98.849 Dextrose 5% in Water 250 ml @ 1 MG/MIN 33.33 mls/ hr IV .Q7H31M [facility] Rx#: [id number] Clevidipine Butyrate 25 0.834 4.667 mg In Empty Bag 1 bag @ 1 MG/HR 2 mls/hr IV .Q24H [facility] Rx#:[id number] Insulin Regular 100 unit 10.59 In Sodium Chloride 0.9% 100 ml @ Per Protocol IV .Q0M [facility] Rx#:[id number] Milrinone-D5w Pmx 20 mg 100 In Dextrose/Water 1 100ml .bag @ 0.3 MCG/KG/MIN 6. 77 mls/hr IV .[id number] [facility] Rx#:[id number] Norepinephrin 4 mg-0.9% 220.312 Ns Pmx 4 mg In 250 ml @ Titrate IV .Q0M [facility] Rx#: [id number] Propofol 1,000 mg In 100 83.011 ml @ Titrate IV .Q0M [facility] Rx#:[id number] Blood Product 1996 Ffp 24 Cpd Unit 317 [id number] Ffp 24 Cpd Unit 324 [id number] Platelet Pheresis Acda 425 Unit [id number] Rc As-1 Unit 310 [id number] Rc As-3 Unit 310 [id number] Rc As-3 Unit 0 [id number] Rc Pheresis 2 As3 Unit 310 [id number] Output: Chest Tube Drainage 1031 274 Left Lateral Chest 36 53 Mediastinal x 2 995 221 Urine 282 243 Other: Voiding Method Indwelling Catheter Indwelling Catheter Weight 85.3 kg 03/05/17 04:00 03/05/17 04:00 Assessment and Plan (1) Status post aortic valve replacement Status: Acute (2) Bicuspid aortic valve Status: Acute (3) Hypertension Status: Acute Plan: Continue with blood pressures support measures and also IV amiodarone. Continue ventilator support. Continue current postoperative management. We'll follow her along with you.
[2017-03-05 07:22] LABS: Glucose,Whole Blood 152 mg/dL (75-99)
[2017-03-05 08:19] LABS: Glucose,Whole Blood 136 mg/dL (75-99)
[2017-03-05] MEDS: ASPIRIN 325 MG TAB PO SCH (08:24)
[2017-03-05] MEDS: ATORVASTATIN 40 MG TAB PO SCH (08:24)
[2017-03-05] MEDS: CLOPIDOGREL 75 MG TAB PO SCH (08:25)
[2017-03-05] MEDS: CHLORHEXIDINE GLUCONATE 15 ML CUP MUCOUS MEM SCH ×2 (08:25→21:04)
--- NOTE | 2017-03-05 08:25 | XR ---
EXAMINATION TYPE: XR chest 1V portable DATE OF EXAM: 03/05/2017 COMPARISON: Prior chest x-ray 03/04/2017 HISTORY: Postop cardiac surgery, intubated TECHNIQUE: Single frontal view of the chest is obtained. FINDINGS: Endotracheal tube, NG tube, right jugular central venous catheter, median sternal drains, left chest tube are overlying appropriate positions. No evident pneumothorax. Minimal basilar density , retrocardiac density persists. Central vascularity and interstitium are somewhat increased. Lung vo lumes are low. The heart is enlarged. Patient is post cardiac valve replacement. IMPRESSION: Expiratory rotated exam. Correlate for possible volume overload, pulmonary venous hypert ension and interstitial edema. There is likely lower lobe atelectasis. Follow-up recommended.
[2017-03-05] MEDS: PANTOPRAZOLE 40 MG/10 ML VIAL IVP SCH (08:29)
[2017-03-05] MEDS: POTASSIUM CHLORIDE 10 MEQ in WATER FOR INJECTION 1 100ML.BAG IVPB SCH ×4 (08:31→15:41)
--- NOTE | 2017-03-05 08:40 | P.CONS ---
History of Present Illness - Reason for Consult Consult date: 03/05/17 Requesting physician: Han Aguirre - Chief Complaint Aortic stenosis with history of diabetes. - History of Present Illness This is a history and physical on a 76-year-old white female essentially admitted for external suspect she's had a martinez course postoperatively requiring revision treatment in the emergency room after significant amount of bleeding. Now this is been stabilized in the ICU. She hasn't underlying history of diabetes which has been fairly well-controlled with chronic kidney disease. 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 Past Anesthesia/Blood Transfusion Reactions: No Reported Reaction Smoking Status: Never smoker - Past Family History Mother Family Medical History: No Reported History Medications and Allergies Home Medications Medication Instructions Recorded Confirmed Type Acetaminophen/Diphenhydramine 1 tab PO HS PRN 07/17/16 03/04/17 History [Tylenol PM 500-25mg] Albuterol Sulfate [Proair Hfa] 2 puff INHALATION RT-Q6H PRN 07/17/16 03/04/17 History Aspirin EC [Ecotrin Low Dose] 81 mg PO DAILY 07/17/16 03/04/17 History Atenolol [Tenormin] 25 mg PO DAILY 07/17/16 03/04/17 History Calcium Carb-Vit D 500Mg-200Un 1 tab PO DAILY 07/17/16 03/04/17 History [Oscal 500+D] Cyanocobalamin [Vitamin B-12] 2,500 mcg PO DAILY 07/17/16 03/04/17 History Fenofibrate [Lofibra] 160 mg PO DAILY 07/17/16 03/04/17 History Lisinopril [Zestril] 10 mg PO DAILY 07/17/16 03/04/17 History Pravastatin Sodium [Pravachol] 40 mg PO HS 07/17/16 03/04/17 History amLODIPine [Norvasc] 5 mg PO DAILY 07/17/16 03/04/17 History Chlorpheniramine Maleate 4 mg PO HS 02/23/17 03/04/17 History [Chlor-Trimeton] Insulin Aspart [NovoLOG] See Protocol SQ-PUMP CONTINUOUS 02/23/17 03/04/17 History Ofloxacin 0.3% Ophth Soln [Ocuflox 1 drops RIGHT EYE QID 02/23/17 03/04/17 History Ophth Soln] prednisoLONE ACETATE 1% OPHTH 1 drops RIGHT EYE QID 02/23/17 03/04/17 History [Pred Forte 1%] Aspirin 325 mg PO ONCE 03/04/17 03/04/17 History Ibuprofen [Advil] 200 mg PO Q8HR PRN 03/04/17 03/04/17 History Weekly D3 Vitamin 35,000 unit PO Q7D 03/04/17 03/04/17 History Allergies Allergy/AdvReac Type Severity Reaction Status Date / Time codeine Allergy Rash/Hives Verified 03/04/17 06:16 metformin [From Glucophage] Allergy Nausea & Verified 03/04/17 06:16 Vomiting orange Allergy Rash/Hives Verified 03/04/17 06:16 adhesive tape AdvReac Rash/Hives Verified 03/04/17 06:16 milk AdvReac Abdominal Verified 03/04/17 06:16 Pain Penicillins AdvReac Nausea Verified 03/04/17 06:16 Physical Exam Vitals: Vital Signs Temp Pulse Pulse Resp BP Pulse Ox 03/05/17 07:43 69 03/05/17 07:23 69 03/05/17 07:00 69 13 98 03/05/17 06:30 69 13 98 03/05/17 06:00 69 14 96 03/05/17 05:30 69 14 91 L 03/05/17 05:00 69 14 94 L 03/05/17 04:30 70 14 88 L 03/05/17 04:00 69 60 14 91 L 03/05/17 03:33 69 03/05/17 03:19 69 03/05/17 03:00 69 14 93 L 03/05/17 02:30 69 14 93 L 03/05/17 02:00 72 14 92 L 03/05/17 01:30 69 14 94 L 03/05/17 01:00 69 13 95 03/05/17 00:30 69 14 92 L 03/05/17 00:00 73 60 13 92 L 03/04/17 23:50 69 03/04/17 23:30 69 14 95 03/04/17 23:00 69 13 95 03/04/17 22:30 69 16 96 03/04/17 22:00 69 16 95 03/04/17 19:00 60 03/04/17 18:45 60 17 03/04/17 18:30 54 L 19 03/04/17 18:15 162 H 17 03/04/17 18:00 97.0 F L 66 16 100 03/04/17 17:45 89 18 03/04/17 17:30 79 16 03/04/17 17:15 115 H 16 03/04/17 17:00 86 15 03/04/17 16:45 88 16 03/04/17 16:35 86 03/04/17 16:30 76 15 03/04/17 16:20 81 03/04/17 16:15 80 16 03/04/17 16:00 97.0 F L 59 L 60 16 68/40 100 03/04/17 15:45 70 16 03/04/17 15:30 58 L 13 03/04/17 15:15 68 16 03/04/17 15:00 95.7 F L 74 15 03/04/17 14:45 77 03/04/17 14:30 74 03/04/17 14:15 59 L 03/04/17 14:00 95.5 F L 73 Intake and Output 03/04/17 03/05/17 03/05/17 22:59 06:59 14:59 Intake Total 2671.812 2067.429 360 Output Total 1313 517 70 Balance 2448.647 3450.429 290 Intake: IV 455 1550 50 ACETAMINOPHEN IV (For NPO 100 ) 1,000 mg In Empty Bag 1 bag @ 400 mls/hr IVPB Q6HR [facility] Rx#:[id number] Albumin Human 5% 250 ml 500 In Empty Bag 1 bag @ 250 mls/hr IVPB ONCE ONE Rx#: [id number] Calcium Gluconate 2,000 100 mg In Sodium Chloride 0.9 % 100 ml @ 100 mls/hr IVPB ONCE PRN Rx#: [id number] Lactated Ringers 1,000 ml 455 400 50 @ 50 mls/hr IV .Q20H [facility] Rx#:[id number] Magnesium Sulfate-D5w Pmx 100 1 gm In Dextrose/Water 1 100ml.bag @ 100 mls/hr IVPB Q1H [facility] Rx#: [id number] Sodium Phosphate 10 mmol 250 In Sodium Chloride 0.9% 250 ml @ 125 mls/hr IVPB ONCE ONE Rx#:[id number] ceFAZolin 2 gm In Sodium 100 Chloride 0.9% 100 ml @ 100 mls/hr IVPB Q8HR [facility] Rx#:[id number] Intake, IV Titration 220.812 517.429 Amount Amiodarone 450 mg In 219.978 98.849 Dextrose 5% in Water 250 ml @ 1 MG/MIN 33.33 mls/ hr IV .Q7H31M [facility] Rx#: [id number] Clevidipine Butyrate 25 0.834 4.667 mg In Empty Bag 1 bag @ 1 MG/HR 2 mls/hr IV .Q24H [facility] Rx#:[id number] Insulin Regular 100 unit 10.59 In Sodium Chloride 0.9% 100 ml @ Per Protocol IV .Q0M [facility] Rx#:[id number] Milrinone-D5w Pmx 20 mg 100 In Dextrose/Water 1 100ml .bag @ 0.3 MCG/KG/MIN 6. 77 mls/hr IV .Q46H50Y [facility] Rx#:[id number] Norepinephrin 4 mg-0.9% 220.312 Ns Pmx 4 mg In 250 ml @ Titrate IV .Q0M [facility] Rx#: [id number] Propofol 1,000 mg In 100 83.011 ml @ Titrate IV .Q0M [facility] Rx#:[id number] Blood Product 1995 310 Ffp 24 Cpd Unit 317 [id number] Ffp 24 Cpd Unit 324 [id number] Platelet Pheresis Acda 425 Unit [id number] Rc As-1 Unit 310 [id number] Rc As-3 Unit 310 [id number] Rc As-3 Unit 0 310 [id number] Rc Pheresis 2 As3 Unit 310 [id number] Output: Chest Tube Drainage 1031 274 Left Lateral Chest 36 53 Mediastinal x 2 995 221 Urine 282 243 70 Other: Voiding Method Indwelling Catheter Indwelling Catheter Weight 85.3 kg ABP, PAP, CO, CI - Last 8 Hours Arterial Blood Pressure 142/52 Arterial Blood Pressure 140/52 Arterial Blood Pressure 134/50 Arterial Blood Pressure 134/50 Arterial Blood Pressure 88/40 Arterial Blood Pressure 153/58 Arterial Blood Pressure 110/51 Arterial Blood Pressure 120/54 Arterial Blood Pressure 116/51 Arterial Blood Pressure 115/50 Arterial Blood Pressure 147/57 Arterial Blood Pressure 128/52 Pulmonary Artery Pressure 35/21 Pulmonary Artery Pressure 35/21 Pulmonary Artery Pressure 35/19 Pulmonary Artery Pressure 41/25 Pulmonary Artery Pressure 36/19 Pulmonary Artery Pressure 53/28 Pulmonary Artery Pressure 43/26 Pulmonary Artery Pressure 39/25 Pulmonary Artery Pressure 39/24 Pulmonary Artery Pressure 37/22 Pulmonary Artery Pressure 43/24 Pulmonary Artery Pressure 34/20 Cardiac Output 4.2 Cardiac Output 4.2 Cardiac Output 4.2 Cardiac Output 4 Cardiac Output 4 Cardiac Output 2.8 Cardiac Output 2.8 Cardiac Output 2.6 Cardiac Output 3.1 Cardiac Index 2.4 Cardiac Index 2.4 Cardiac Index 2.3 Cardiac Index 1.6 Cardiac Index 1.5 Cardiac Index 1.8 - Constitutional General appearance: no acute distress - EENT Eyes: EOMI - Neck Neck: no lymphadenopathy - Respiratory Respiratory: bilateral: CTA - Cardiovascular Rhythm: regular Heart sounds: normal: S1, S2 - Gastrointestinal General gastrointestinal: soft, no tenderness - Psychiatric Psychiatric: no A&O x's 3 Results CBC & Chem 7: 03/05/17 04:00 03/05/17 04:00 Labs: Abnormal Lab Results - Last 24 Hours (Table) 02/23/17 03/04/17 03/04/17 Range/Units 09:08 09:38 10:41 RBC (3.80-5.40) m/uL Hgb (11.4-16.0) gm/dL Hct (34.0-46.0) % MCV (80.0-100.0) fL MCH (25.0-35.0) pg MCHC (31.0-37.0) g/dL RDW (11.5-15.5) % Plt Count (150-450) k/uL Lymphocytes # (1.0-4.8) k/uL PT (9.0-12.0) sec INR (<1.2) APTT (22.0-30.0) sec ABG pH (7.35-7.45) ABG pCO2 (35-45) mmHg ABG pO2 (83-108) mmHg ABG HCO3 (21-25) mmol/L ABG Total CO2 (19-24) mmol/L ABG O2 Saturation (94-97) % Sodium (137-145) mmol/L Potassium (3.5-5.1) mmol/L Chloride (98-107) mmol/L BUN (7-17) mg/dL Creatinine (0.52-1.04) mg/dL Glucose (74-99) mg/dL POC Glucose (mg/dL) 195 H 207 H (75-99) mg/dL Calcium (8.4-10.2) mg/dL Ionized Calcium Luz Elena (4.5-5.3) mg/dL Phosphorus (2.5-4.5) mg/dL Magnesium (1.6-2.3) mg/dL Total Bilirubin (0.2-1.3) mg/dL AST (14-36) U/L ALT (9-52) U/L Alkaline Phosphatase (38-126) U/L Total Protein (6.3-8.2) g/dL Albumin (3.5-5.0) g/dL Crossmatch See Detail 03/04/17 03/04/17 03/04/17 Range/Units 11:09 11:40 12:39 RBC (3.80-5.40) m/uL Hgb (11.4-16.0) gm/dL Hct (34.0-46.0) % MCV (80.0-100.0) fL MCH (25.0-35.0) pg MCHC (31.0-37.0) g/dL RDW (11.5-15.5) % Plt Count (150-450) k/uL Lymphocytes # (1.0-4.8) k/uL PT (9.0-12.0) sec INR (<1.2) APTT (22.0-30.0) sec ABG pH (7.35-7.45) ABG pCO2 (35-45) mmHg ABG pO2 (83-108) mmHg ABG HCO3 (21-25) mmol/L ABG Total CO2 (19-24) mmol/L ABG O2 Saturation (94-97) % Sodium (137-145) mmol/L Potassium (3.5-5.1) mmol/L Chloride (98-107) mmol/L BUN (7-17) mg/dL Creatinine (0.52-1.04) mg/dL Glucose (74-99) mg/dL POC Glucose (mg/dL) 301 H 267 H 206 H (75-99) mg/dL Calcium (8.4-10.2) mg/dL Ionized Calcium Luz Elena (4.5-5.3) mg/dL Phosphorus (2.5-4.5) mg/dL Magnesium (1.6-2.3) mg/dL Total Bilirubin (0.2-1.3) mg/dL AST (14-36) U/L ALT (9-52) U/L Alkaline Phosphatase (38-126) U/L Total Protein (6.3-8.2) g/dL Albumin (3.5-5.0) g/dL Crossmatch 03/04/17 03/04/17 03/04/17 Range/Units 14:05 14:05 14:05 RBC 3.57 L (3.80-5.40) m/uL Hgb 6.8 L* D (11.4-16.0) gm/dL Hct 22.9 L (34.0-46.0) % MCV 64.0 L (80.0-100.0) fL MCH 19.1 L (25.0-35.0) pg MCHC 29.8 L (31.0-37.0) g/dL RDW 16.2 H (11.5-15.5) % Plt Count 94 L D (150-450) k/uL Lymphocytes # (1.0-4.8) k/uL PT 13.5 H (9.0-12.0) sec INR 1.4 H (<1.2) APTT 30.4 H (22.0-30.0) sec ABG pH (7.35-7.45) ABG pCO2 (35-45) mmHg ABG pO2 (83-108) mmHg ABG HCO3 (21-25) mmol/L ABG Total CO2 (19-24) mmol/L ABG O2 Saturation (94-97) % Sodium (137-145) mmol/L Potassium 3.3 L (3.5-5.1) mmol/L Chloride 109 H (98-107) mmol/L BUN (7-17) mg/dL Creatinine (0.52-1.04) mg/dL Glucose (74-99) mg/dL POC Glucose (mg/dL) (75-99) mg/dL Calcium 7.4 L (8.4-10.2) mg/dL Ionized Calcium Luz Elena (4.5-5.3) mg/dL Phosphorus (2.5-4.5) mg/dL Magnesium 2.5 H (1.6-2.3) mg/dL Total Bilirubin (0.2-1.3) mg/dL AST 42 H (14-36) U/L ALT (9-52) U/L Alkaline Phosphatase 32 L (38-126) U/L Total Protein 4.9 L (6.3-8.2) g/dL Albumin 3.4 L (3.5-5.0) g/dL Crossmatch 03/04/17 03/04/17 03/04/17 Range/Units 14:07 14:18 15:12 RBC (3.80-5.40) m/uL Hgb (11.4-16.0) gm/dL Hct (34.0-46.0) % MCV (80.0-100.0) fL MCH (25.0-35.0) pg MCHC (31.0-37.0) g/dL RDW (11.5-15.5) % Plt Count (150-450) k/uL Lymphocytes # (1.0-4.8) k/uL PT (9.0-12.0) sec INR (<1.2) APTT (22.0-30.0) sec ABG pH 7.22 L (7.35-7.45) ABG pCO2 59 H (35-45) mmHg ABG pO2 (83-108) mmHg ABG HCO3 (21-25) mmol/L ABG Total CO2 25 H (19-24) mmol/L ABG O2 Saturation 93.4 L (94-97) % Sodium (137-145) mmol/L Potassium (3.5-5.1) mmol/L Chloride (98-107) mmol/L BUN (7-17) mg/dL Creatinine (0.52-1.04) mg/dL Glucose (74-99) mg/dL POC Glucose (mg/dL) 112 H 116 H (75-99) mg/dL Calcium (8.4-10.2) mg/dL Ionized Calcium Luz Elena (4.5-5.3) mg/dL Phosphorus (2.5-4.5) mg/dL Magnesium (1.6-2.3) mg/dL Total Bilirubin (0.2-1.3) mg/dL AST (14-36) U/L ALT (9-52) U/L Alkaline Phosphatase (38-126) U/L Total Protein (6.3-8.2) g/dL Albumin (3.5-5.0) g/dL Crossmatch 03/04/17 03/04/17 03/04/17 Range/Units 16:04 16:08 17:13 RBC (3.80-5.40) m/uL Hgb (11.4-16.0) gm/dL Hct (34.0-46.0) % MCV (80.0-100.0) fL MCH (25.0-35.0) pg MCHC (31.0-37.0) g/dL RDW (11.5-15.5) % Plt Count (150-450) k/uL Lymphocytes # (1.0-4.8) k/uL PT (9.0-12.0) sec INR (<1.2) APTT (22.0-30.0) sec ABG pH 7.29 L (7.35-7.45) ABG pCO2 (35-45) mmHg ABG pO2 169 H (83-108) mmHg ABG HCO3 (21-25) mmol/L ABG Total CO2 (19-24) mmol/L ABG O2 Saturation 99.0 H (94-97) % Sodium (137-145) mmol/L Potassium (3.5-5.1) mmol/L Chloride (98-107) mmol/L BUN (7-17) mg/dL Creatinine (0.52-1.04) mg/dL Glucose (74-99) mg/dL POC Glucose (mg/dL) 152 H 187 H (75-99) mg/dL Calcium (8.4-10.2) mg/dL Ionized Calcium Luz Elena (4.5-5.3) mg/dL Phosphorus (2.5-4.5) mg/dL Magnesium (1.6-2.3) mg/dL Total Bilirubin (0.2-1.3) mg/dL AST (14-36) U/L ALT (9-52) U/L Alkaline Phosphatase (38-126) U/L Total Protein (6.3-8.2) g/dL Albumin (3.5-5.0) g/dL Crossmatch 03/04/17 03/04/17 03/04/17 Range/Units 17:18 17:30 17:30 RBC 3.35 L (3.80-5.40) m/uL Hgb 7.3 L (11.4-16.0) gm/dL Hct 23.4 L (34.0-46.0) % MCV 69.8 L D (80.0-100.0) fL MCH 21.7 L (25.0-35.0) pg MCHC (31.0-37.0) g/dL RDW 21.1 H (11.5-15.5) % Plt Count (150-450) k/uL Lymphocytes # 0.9 L (1.0-4.8) k/uL PT 12.5 H (9.0-12.0) sec INR 1.3 H (<1.2) APTT (22.0-30.0) sec ABG pH (7.35-7.45) ABG pCO2 (35-45) mmHg ABG pO2 180 H (83-108) mmHg ABG HCO3 20 L (21-25) mmol/L ABG Total CO2 (19-24) mmol/L ABG O2 Saturation 100.0 H (94-97) % Sodium (137-145) mmol/L Potassium (3.5-5.1) mmol/L Chloride (98-107) mmol/L BUN (7-17) mg/dL Creatinine (0.52-1.04) mg/dL Glucose (74-99) mg/dL POC Glucose (mg/dL) (75-99) mg/dL Calcium (8.4-10.2) mg/dL Ionized Calcium Luz Elena (4.5-5.3) mg/dL Phosphorus (2.5-4.5) mg/dL Magnesium (1.6-2.3) mg/dL Total Bilirubin (0.2-1.3) mg/dL AST (14-36) U/L ALT (9-52) U/L Alkaline Phosphatase (38-126) U/L Total Protein (6.3-8.2) g/dL Albumin (3.5-5.0) g/dL Crossmatch 03/04/17 03/04/17 03/04/17 Range/Units 17:30 18:07 19:28 RBC (3.80-5.40) m/uL Hgb (11.4-16.0) gm/dL Hct (34.0-46.0) % MCV (80.0-100.0) fL MCH (25.0-35.0) pg MCHC (31.0-37.0) g/dL RDW (11.5-15.5) % Plt Count (150-450) k/uL Lymphocytes # (1.0-4.8) k/uL PT (9.0-12.0) sec INR (<1.2) APTT (22.0-30.0) sec ABG pH (7.35-7.45) ABG pCO2 (35-45) mmHg ABG pO2 (83-108) mmHg ABG HCO3 (21-25) mmol/L ABG Total CO2 (19-24) mmol/L ABG O2 Saturation (94-97) % Sodium (137-145) mmol/L Potassium (3.5-5.1) mmol/L Chloride (98-107) mmol/L BUN (7-17) mg/dL Creatinine (0.52-1.04) mg/dL Glucose (74-99) mg/dL POC Glucose (mg/dL) 278 H 275 H (75-99) mg/dL Calcium (8.4-10.2) mg/dL Ionized Calcium Luz Elena 3.5 L* (4.5-5.3) mg/dL Phosphorus (2.5-4.5) mg/dL Magnesium (1.6-2.3) mg/dL Total Bilirubin (0.2-1.3) mg/dL AST (14-36) U/L ALT (9-52) U/L Alkaline Phosphatase (38-126) U/L Total Protein (6.3-8.2) g/dL Albumin (3.5-5.0) g/dL Crossmatch 03/04/17 03/04/17 03/04/17 Range/Units 19:59 20:33 21:55 RBC (3.80-5.40) m/uL Hgb (11.4-16.0) gm/dL Hct (34.0-46.0) % MCV (80.0-100.0) fL MCH (25.0-35.0) pg MCHC (31.0-37.0) g/dL RDW (11.5-15.5) % Plt Count (150-450) k/uL Lymphocytes # (1.0-4.8) k/uL PT (9.0-12.0) sec INR (<1.2) APTT (22.0-30.0) sec ABG pH (7.35-7.45) ABG pCO2 (35-45) mmHg ABG pO2 (83-108) mmHg ABG HCO3 (21-25) mmol/L ABG Total CO2 (19-24) mmol/L ABG O2 Saturation (94-97) % Sodium (137-145) mmol/L Potassium (3.5-5.1) mmol/L Chloride (98-107) mmol/L BUN (7-17) mg/dL Creatinine (0.52-1.04) mg/dL Glucose (74-99) mg/dL POC Glucose (mg/dL) 258 H 216 H 155 H (75-99) mg/dL Calcium (8.4-10.2) mg/dL Ionized Calcium Luz Elena (4.5-5.3) mg/dL Phosphorus (2.5-4.5) mg/dL Magnesium (1.6-2.3) mg/dL Total Bilirubin (0.2-1.3) mg/dL AST (14-36) U/L ALT (9-52) U/L Alkaline Phosphatase (38-126) U/L Total Protein (6.3-8.2) g/dL Albumin (3.5-5.0) g/dL Crossmatch 03/04/17 03/04/17 03/04/17 Range/Units 22:10 22:10 22:10 RBC 3.38 L (3.80-5.40) m/uL Hgb 8.2 L (11.4-16.0) gm/dL Hct 25.0 L (34.0-46.0) % MCV 74.0 L (80.0-100.0) fL MCH 24.1 L (25.0-35.0) pg MCHC (31.0-37.0) g/dL RDW 22.4 H (11.5-15.5) % Plt Count 109 L (150-450) k/uL Lymphocytes # (1.0-4.8) k/uL PT 14.8 H (9.0-12.0) sec INR 1.5 H (<1.2) APTT 32.3 H (22.0-30.0) sec ABG pH (7.35-7.45) ABG pCO2 (35-45) mmHg ABG pO2 (83-108) mmHg ABG HCO3 (21-25) mmol/L ABG Total CO2 (19-24) mmol/L ABG O2 Saturation (94-97) % Sodium (137-145) mmol/L Potassium 3.3 L (3.5-5.1) mmol/L Chloride 108 H (98-107) mmol/L BUN (7-17) mg/dL Creatinine (0.52-1.04) mg/dL Glucose 148 H (74-99) mg/dL POC Glucose (mg/dL) (75-99) mg/dL Calcium 6.5 L* (8.4-10.2) mg/dL Ionized Calcium Luz Elena 4.0 L (4.5-5.3) mg/dL Phosphorus 2.2 L (2.5-4.5) mg/dL Magnesium (1.6-2.3) mg/dL Total Bilirubin (0.2-1.3) mg/dL AST (14-36) U/L ALT (9-52) U/L Alkaline Phosphatase (38-126) U/L Total Protein (6.3-8.2) g/dL Albumin (3.5-5.0) g/dL Crossmatch 03/04/17 03/04/17 03/05/17 Range/Units 23:15 23:54 00:47 RBC 3.65 L (3.80-5.40) m/uL Hgb 8.6 L (11.4-16.0) gm/dL Hct 26.5 L (34.0-46.0) % MCV 72.6 L (80.0-100.0) fL MCH 23.6 L (25.0-35.0) pg MCHC (31.0-37.0) g/dL RDW 21.4 H (11.5-15.5) % Plt Count 129 L (150-450) k/uL Lymphocytes # (1.0-4.8) k/uL PT (9.0-12.0) sec INR (<1.2) APTT (22.0-30.0) sec ABG pH (7.35-7.45) ABG pCO2 (35-45) mmHg ABG pO2 (83-108) mmHg ABG HCO3 (21-25) mmol/L ABG Total CO2 (19-24) mmol/L ABG O2 Saturation (94-97) % Sodium (137-145) mmol/L Potassium (3.5-5.1) mmol/L Chloride (98-107) mmol/L BUN (7-17) mg/dL Creatinine (0.52-1.04) mg/dL Glucose (74-99) mg/dL POC Glucose (mg/dL) 160 H 152 H (75-99) mg/dL Calcium (8.4-10.2) mg/dL Ionized Calcium Luz Elena (4.5-5.3) mg/dL Phosphorus (2.5-4.5) mg/dL Magnesium (1.6-2.3) mg/dL Total Bilirubin (0.2-1.3) mg/dL AST (14-36) U/L ALT (9-52) U/L Alkaline Phosphatase (38-126) U/L Total Protein (6.3-8.2) g/dL Albumin (3.5-5.0) g/dL Crossmatch 03/05/17 03/05/17 03/05/17 Range/Units 01:06 02:06 03:13 RBC (3.80-5.40) m/uL Hgb (11.4-16.0) gm/dL Hct (34.0-46.0) % MCV (80.0-100.0) fL MCH (25.0-35.0) pg MCHC (31.0-37.0) g/dL RDW (11.5-15.5) % Plt Count (150-450) k/uL Lymphocytes # (1.0-4.8) k/uL PT (9.0-12.0) sec INR (<1.2) APTT (22.0-30.0) sec ABG pH (7.35-7.45) ABG pCO2 (35-45) mmHg ABG pO2 (83-108) mmHg ABG HCO3 (21-25) mmol/L ABG Total CO2 (19-24) mmol/L ABG O2 Saturation (94-97) % Sodium (137-145) mmol/L Potassium (3.5-5.1) mmol/L Chloride (98-107) mmol/L BUN (7-17) mg/dL Creatinine (0.52-1.04) mg/dL Glucose (74-99) mg/dL POC Glucose (mg/dL) 131 H 120 H 106 H (75-99) mg/dL Calcium (8.4-10.2) mg/dL Ionized Calcium Luz Elena (4.5-5.3) mg/dL Phosphorus (2.5-4.5) mg/dL Magnesium (1.6-2.3) mg/dL Total Bilirubin (0.2-1.3) mg/dL AST (14-36) U/L ALT (9-52) U/L Alkaline Phosphatase (38-126) U/L Total Protein (6.3-8.2) g/dL Albumin (3.5-5.0) g/dL Crossmatch 03/05/17 03/05/17 03/05/17 Range/Units 04:00 04:00 04:00 RBC 3.49 L (3.80-5.40) m/uL Hgb 8.2 L (11.4-16.0) gm/dL Hct 25.5 L (34.0-46.0) % MCV 73.0 L (80.0-100.0) fL MCH 23.5 L (25.0-35.0) pg MCHC (31.0-37.0) g/dL RDW 22.0 H (11.5-15.5) % Plt Count 114 L (150-450) k/uL Lymphocytes # (1.0-4.8) k/uL PT 13.8 H (9.0-12.0) sec INR 1.4 H (<1.2) APTT (22.0-30.0) sec ABG pH (7.35-7.45) ABG pCO2 (35-45) mmHg ABG pO2 (83-108) mmHg ABG HCO3 (21-25) mmol/L ABG Total CO2 (19-24) mmol/L ABG O2 Saturation (94-97) % Sodium 146 H (137-145) mmol/L Potassium (3.5-5.1) mmol/L Chloride 109 H (98-107) mmol/L BUN 20 H (7-17) mg/dL Creatinine 1.10 H (0.52-1.04) mg/dL Glucose 103 H (74-99) mg/dL POC Glucose (mg/dL) (75-99) mg/dL Calcium 7.2 L (8.4-10.2) mg/dL Ionized Calcium Luz Elena 4.1 L (4.5-5.3) mg/dL Phosphorus (2.5-4.5) mg/dL Magnesium (1.6-2.3) mg/dL Total Bilirubin 1.5 H (0.2-1.3) mg/dL AST 143 H (14-36) U/L ALT 67 H (9-52) U/L Alkaline Phosphatase 26 L (38-126) U/L Total Protein 4.7 L (6.3-8.2) g/dL Albumin 3.2 L (3.5-5.0) g/dL Crossmatch 03/05/17 03/05/17 03/05/17 Range/Units 04:05 05:16 05:28 RBC (3.80-5.40) m/uL Hgb (11.4-16.0) gm/dL Hct (34.0-46.0) % MCV (80.0-100.0) fL MCH (25.0-35.0) pg MCHC (31.0-37.0) g/dL RDW (11.5-15.5) % Plt Count (150-450) k/uL Lymphocytes # (1.0-4.8) k/uL PT (9.0-12.0) sec INR (<1.2) APTT (22.0-30.0) sec ABG pH (7.35-7.45) ABG pCO2 (35-45) mmHg ABG pO2 56 L (83-108) mmHg ABG HCO3 (21-25) mmol/L ABG Total CO2 26 H (19-24) mmol/L ABG O2 Saturation 88.0 L (94-97) % Sodium (137-145) mmol/L Potassium (3.5-5.1) mmol/L Chloride (98-107) mmol/L BUN (7-17) mg/dL Creatinine (0.52-1.04) mg/dL Glucose (74-99) mg/dL POC Glucose (mg/dL) 108 H 129 H (75-99) mg/dL Calcium (8.4-10.2) mg/dL Ionized Calcium Luz Elena (4.5-5.3) mg/dL Phosphorus (2.5-4.5) mg/dL Magnesium (1.6-2.3) mg/dL Total Bilirubin (0.2-1.3) mg/dL AST (14-36) U/L ALT (9-52) U/L Alkaline Phosphatase (38-126) U/L Total Protein (6.3-8.2) g/dL Albumin (3.5-5.0) g/dL Crossmatch 03/05/17 03/05/17 03/05/17 Range/Units 06:18 07:20 08:12 RBC (3.80-5.40) m/uL Hgb (11.4-16.0) gm/dL Hct (34.0-46.0) % MCV (80.0-100.0) fL MCH (25.0-35.0) pg MCHC (31.0-37.0) g/dL RDW (11.5-15.5) % Plt Count (150-450) k/uL Lymphocytes # (1.0-4.8) k/uL PT (9.0-12.0) sec INR (<1.2) APTT (22.0-30.0) sec ABG pH (7.35-7.45) ABG pCO2 (35-45) mmHg ABG pO2 (83-108) mmHg ABG HCO3 (21-25) mmol/L ABG Total CO2 (19-24) mmol/L ABG O2 Saturation (94-97) % Sodium (137-145) mmol/L Potassium (3.5-5.1) mmol/L Chloride (98-107) mmol/L BUN (7-17) mg/dL Creatinine (0.52-1.04) mg/dL Glucose (74-99) mg/dL POC Glucose (mg/dL) 138 H 152 H 136 H (75-99) mg/dL Calcium (8.4-10.2) mg/dL Ionized Calcium Luz Elena (4.5-5.3) mg/dL Phosphorus (2.5-4.5) mg/dL Magnesium (1.6-2.3) mg/dL Total Bilirubin (0.2-1.3) mg/dL AST (14-36) U/L ALT (9-52) U/L Alkaline Phosphatase (38-126) U/L Total Protein (6.3-8.2) g/dL Albumin (3.5-5.0) g/dL Crossmatch Assessment and Plan (1) Status post aortic valve replacement Status: Acute (2) Bicuspid aortic valve Status: Acute (3) Diabetes mellitus, insulin dependent (IDDM), controlled Status: Acute (4) Hypertension Status: Acute Plan: Reconcile medications as the patient stabilizes. Check CBC, CMP in a.m. Continue to follow with intensivists. Dr. Berumen's group will be covering for the weekend. Time with Patient: Less than 30
[2017-03-05 08:42] LABS: ABG Base Excess -0.4 mmol/L; ABG HCO3 24 mmol/L (21-25); ABG Oxygen Saturation 88.7 % (94-97); ABG PCO2 39 mmHg (35-45); ABG PO2 56 mmHg (83-108); ABG TCO2 25 mmol/L (19-24)
[2017-03-05 09:10] LABS: Glucose,Whole Blood 142 mg/dL (75-99)
[2017-03-05 10:12] LABS: Glucose,Whole Blood 122 mg/dL (75-99)
--- NOTE | 2017-03-05 10:30 | P.CNPUL ---
History of Present Illness Consult date: 03/05/17 Requesting physician: Carlos Tabor Reason for consult: other (Critical care management) Chief complaint: Dyspnea secondary to severe aortic stenosis History of present illness: This is a 76-year-old female patient who follows with Dr. Tabor as her primary care physician. She has a history of hypertension, diabetes mellitus, hyperlipidemia, asthma, CVA/TIA, pericarditis. She had been referred to cardiology with complaints of increasing shortness of breath. Echocardiogram revealed severe bicuspid aortic stenosis. A cardiac catheterization in December 2016 revealed no significant coronary artery disease. She was recommended aortic valve replacement. She presented here electively yesterday for surgical aortic valve replacement which was performed by Dr. Aguirre. She received a #25 mm magna ease bioprosthetic aortic valve along with clip ligation of left atrial appendage. This is postoperative day #1. She is seen today in consultation in the intensive care unit. She is currently intubated and sedated. She is on assist-control mode of 24, tidal volume of 350, FiO2 is 100 % and a PEEP of 8. Morning blood gases reveal a P O2 of 56, pCO2 of 42, PH7.40. Her current drips are lactated Ringer's at 50 MLS per hour, norepinephrine at 2 mcg/m, Primacor at 0.3 mcg/kg/m, propofol at 25 mcg/kg/m, insulin at 8.5 units per hour, amiodarone at 0.5 mg/m. PA pressure 33/22 with a mean of 27, CVP 17, cardiac output 3.8 hematocrit index 2.2. She is making adequate urine output. She did require a return to the OR last evening secondary to mediastinal bleeding and hypotension. 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 Past Anesthesia/Blood Transfusion Reactions: No Reported Reaction Smoking Status: Never smoker - Past Family History Mother Family Medical History: No Reported History Medications and Allergies Home Medications Medication Instructions Recorded Confirmed Type Acetaminophen/Diphenhydramine 1 tab PO HS PRN 07/17/16 03/04/17 History [Tylenol PM 500-25mg] Albuterol Sulfate [Proair Hfa] 2 puff INHALATION RT-Q6H PRN 07/17/16 03/04/17 History Aspirin EC [Ecotrin Low Dose] 81 mg PO DAILY 07/17/16 03/04/17 History Atenolol [Tenormin] 25 mg PO DAILY 07/17/16 03/04/17 History Calcium Carb-Vit D 500Mg-200Un 1 tab PO DAILY 07/17/16 03/04/17 History [Oscal 500+D] Cyanocobalamin [Vitamin B-12] 2,500 mcg PO DAILY 07/17/16 03/04/17 History Fenofibrate [Lofibra] 160 mg PO DAILY 07/17/16 03/04/17 History Lisinopril [Zestril] 10 mg PO DAILY 07/17/16 03/04/17 History Pravastatin Sodium [Pravachol] 40 mg PO HS 07/17/16 03/04/17 History amLODIPine [Norvasc] 5 mg PO DAILY 07/17/16 03/04/17 History Chlorpheniramine Maleate 4 mg PO HS 02/23/17 03/04/17 History [Chlor-Trimeton] Insulin Aspart [NovoLOG] See Protocol SQ-PUMP CONTINUOUS 02/23/17 03/04/17 History Ofloxacin 0.3% Ophth Soln [Ocuflox 1 drops RIGHT EYE QID 02/23/17 03/04/17 History Ophth Soln] prednisoLONE ACETATE 1% OPHTH 1 drops RIGHT EYE QID 02/23/17 03/04/17 History [Pred Forte 1%] Aspirin 325 mg PO ONCE 03/04/17 03/04/17 History Ibuprofen [Advil] 200 mg PO Q8HR PRN 03/04/17 03/04/17 History Weekly D3 Vitamin 35,000 unit PO Q7D 03/04/17 03/04/17 History Allergies Allergy/AdvReac Type Severity Reaction Status Date / Time codeine Allergy Rash/Hives Verified 03/04/17 06:16 metformin [From Glucophage] Allergy Nausea & Verified 03/04/17 06:16 Vomiting orange Allergy Rash/Hives Verified 03/04/17 06:16 adhesive tape AdvReac Rash/Hives Verified 03/04/17 06:16 milk AdvReac Abdominal Verified 03/04/17 06:16 Pain Penicillins AdvReac Nausea Verified 03/04/17 06:16 Physical Exam Vitals: Vital Signs Temp Pulse Pulse Resp BP Pulse Ox 03/05/17 08:00 60 12 98 03/05/17 07:43 69 03/05/17 07:23 69 03/05/17 07:00 69 13 98 03/05/17 06:30 69 13 98 03/05/17 06:00 69 14 96 03/05/17 05:30 69 14 91 L 03/05/17 05:00 69 14 94 L 03/05/17 04:30 70 14 88 L 03/05/17 04:00 69 60 14 91 L 03/05/17 03:33 69 03/05/17 03:19 69 03/05/17 03:00 69 14 93 L 03/05/17 02:30 69 14 93 L 03/05/17 02:00 72 14 92 L 03/05/17 01:30 69 14 94 L 03/05/17 01:00 69 13 95 03/05/17 00:30 69 14 92 L 03/05/17 00:00 73 60 13 92 L 03/04/17 23:50 69 03/04/17 23:30 69 14 95 03/04/17 23:00 69 13 95 03/04/17 22:30 69 16 96 03/04/17 22:00 69 16 95 03/04/17 19:00 60 03/04/17 18:45 60 17 03/04/17 18:30 54 L 19 03/04/17 18:15 162 H 17 03/04/17 18:00 97.0 F L 66 16 100 03/04/17 17:45 89 18 03/04/17 17:30 79 16 03/04/17 17:15 115 H 16 03/04/17 17:00 86 15 03/04/17 16:45 88 16 03/04/17 16:35 86 03/04/17 16:30 76 15 03/04/17 16:20 81 03/04/17 16:15 80 16 03/04/17 16:00 97.0 F L 59 L 60 16 68/40 100 03/04/17 15:45 70 16 03/04/17 15:30 58 L 13 03/04/17 15:15 68 16 03/04/17 15:00 95.7 F L 74 15 03/04/17 14:45 77 03/04/17 14:30 74 03/04/17 14:15 59 L 03/04/17 14:00 95.5 F L 73 Intake and Output 03/04/17 03/05/17 03/05/17 22:59 06:59 14:59 Intake Total 2671.812 2067.429 998.588 Output Total 1313 517 300 Balance 6545.194 6194.429 698.588 Intake: IV 455 1550 550 ACETAMINOPHEN IV (For NPO 100 ) 1,000 mg In Empty Bag 1 bag @ 400 mls/hr IVPB Q6HR [facility] Rx#:[id number] Albumin Human 5% 250 ml 500 In Empty Bag 1 bag @ 250 mls/hr IVPB ONCE ONE Rx#: [id number] Calcium Gluconate 2,000 100 100 mg In Sodium Chloride 0.9 % 100 ml @ 100 mls/hr IVPB ONCE PRN Rx#: [id number] Lactated Ringers 1,000 ml 455 400 150 @ 50 mls/hr IV .Q20H [facility] Rx#:[id number] Magnesium Sulfate-D5w Pmx 100 200 1 gm In Dextrose/Water 1 100ml.bag @ 100 mls/hr IVPB Q1H [facility] Rx#: [id number] Sodium Phosphate 10 mmol 250 In Sodium Chloride 0.9% 250 ml @ 125 mls/hr IVPB ONCE ONE Rx#:[id number] ceFAZolin 2 gm In Sodium 100 100 Chloride 0.9% 100 ml @ 100 mls/hr IVPB Q8HR [facility] Rx#:[id number] Intake, IV Titration 220.812 517.429 138.588 Amount Amiodarone 450 mg In 219.978 98.849 Dextrose 5% in Water 250 ml @ 1 MG/MIN 33.33 mls/ hr IV .Q7H31M [facility] Rx#: [id number] Clevidipine Butyrate 25 0.834 4.667 mg In Empty Bag 1 bag @ 1 MG/HR 2 mls/hr IV .Q24H [facility] Rx#:[id number] Insulin Regular 100 unit 10.59 In Sodium Chloride 0.9% 100 ml @ Per Protocol IV .Q0M [facility] Rx#:[id number] Milrinone-D5w Pmx 20 mg 100 In Dextrose/Water 1 100ml .bag @ 0.3 MCG/KG/MIN 6. 77 mls/hr IV .[id number] [facility] Rx#:[id number] Norepinephrin 4 mg-0.9% 220.312 Ns Pmx 4 mg In 250 ml @ Titrate IV .Q0M [facility] Rx#: [id number] Potassium Chloride 10 meq 100 In Water For Injection 1 100ml.bag @ 100 mls/hr IVPB Q1H [facility] Rx#: [id number] Propofol 1,000 mg In 100 83.011 38.588 ml @ Titrate IV .Q0M [facility] Rx#:[id number] Blood Product 1995 310 Ffp 24 Cpd Unit 317 [id number] Ffp 24 Cpd Unit 324 [id number] Platelet Pheresis Acda 425 Unit [id number] Rc As-1 Unit 310 [id number] Rc As-3 Unit 310 [id number] Rc As-3 Unit 0 310 [id number] Rc Pheresis 2 As3 Unit 310 [id number] Output: Chest Tube Drainage 1031 274 55 Left Lateral Chest 36 53 5 Mediastinal x 2 995 221 50 Urine 282 243 245 Other: Voiding Method Indwelling Catheter Indwelling Catheter Indwelling Catheter Weight 85.3 kg ABP, PAP, CO, CI - Last 8 Hours Arterial Blood Pressure 142/52 Arterial Blood Pressure 140/52 Arterial Blood Pressure 134/50 Arterial Blood Pressure 134/50 Arterial Blood Pressure 88/40 Arterial Blood Pressure 153/58 Arterial Blood Pressure 110/51 Arterial Blood Pressure 120/54 Arterial Blood Pressure 116/51 Pulmonary Artery Pressure 35/21 Pulmonary Artery Pressure 35/21 Pulmonary Artery Pressure 35/19 Pulmonary Artery Pressure 41/25 Pulmonary Artery Pressure 36/19 Pulmonary Artery Pressure 53/28 Pulmonary Artery Pressure 43/26 Pulmonary Artery Pressure 39/25 Pulmonary Artery Pressure 39/24 Cardiac Output 4.2 Cardiac Output 4.2 Cardiac Output 4.2 Cardiac Output 4 Cardiac Output 4 Cardiac Output 2.8 Cardiac Output 2.8 Cardiac Output 2.6 Cardiac Index 2.4 Cardiac Index 2.4 Cardiac Index 2.3 Cardiac Index 1.6 Cardiac Index 1.5 GENERAL EXAM: Intubated, sedated. HEAD: Normocephalic. EYES: Sluggish reaction of pupils, equal size. NOSE: Clear with pink turbinates. THROAT: Oral endotracheal and gastric tube secured in place. NECK: No masses, no JVD. [place] in place. CHEST: Sternal dressing dry and intact. LUNGS: Equal air entry with crackles in the posterior bases. Mediastinal and left chest tube in place. CVS: S1 and S2 normal with no audible murmurs, regular rhythm. ABDOMEN: Soft. Extremities: There is trace peripheral edema. No clubbing, no cyanosis. Peripheral pulses are intact. Results - Laboratory Findings CBC and BMP: 03/05/17 04:00 03/05/17 04:00 ABG ABG pH 7.40 (7.35-7.45) 03/05/17 08:30 ABG pCO2 39 mmHg (35-45) 03/05/17 08:30 ABG pO2 56 mmHg (83-108) L 03/05/17 08:30 ABG O2 Saturation 88.7 % (94-97) L 03/05/17 08:30 PT/INR, D-dimer PT 13.8 sec (9.0-12.0) H 03/05/17 04:00 INR 1.4 (<1.2) H 03/05/17 04:00 Abnormal lab findings: Abnormal Labs 02/23/17 03/04/17 03/04/17 09:08 06:20 09:38 RBC Hgb Hct MCV MCH MCHC RDW Plt Count Lymphocytes # PT INR APTT ABG pH ABG pCO2 ABG pO2 ABG HCO3 ABG Total CO2 ABG O2 Saturation Sodium Potassium Chloride BUN Creatinine Glucose POC Glucose (mg/dL) 209 H 195 H Calcium Ionized Calcium [place] Phosphorus Magnesium Total Bilirubin AST ALT Alkaline Phosphatase Total Protein Albumin Crossmatch See Detail 03/04/17 03/04/17 03/04/17 10:41 11:09 11:40 RBC Hgb Hct MCV MCH MCHC RDW Plt Count Lymphocytes # PT INR APTT ABG pH ABG pCO2 ABG pO2 ABG HCO3 ABG Total CO2 ABG O2 Saturation Sodium Potassium Chloride BUN Creatinine Glucose POC Glucose (mg/dL) 207 H 301 H 267 H Calcium Ionized Calcium [place] Phosphorus Magnesium Total Bilirubin AST ALT Alkaline Phosphatase Total Protein Albumin Crossmatch 03/04/17 03/04/17 03/04/17 12:39 14:05 14:05 RBC 3.57 L Hgb 6.8 L* D Hct 22.9 L MCV 64.0 L MCH 19.1 L MCHC 29.8 L RDW 16.2 H Plt Count 94 L D Lymphocytes # PT INR APTT ABG pH ABG pCO2 ABG pO2 ABG HCO3 ABG Total CO2 ABG O2 Saturation Sodium Potassium 3.3 L Chloride 109 H BUN Creatinine Glucose POC Glucose (mg/dL) 206 H Calcium 7.4 L Ionized Calcium [place] Phosphorus Magnesium 2.5 H Total Bilirubin AST 42 H ALT Alkaline Phosphatase 32 L Total Protein 4.9 L Albumin 3.4 L Crossmatch 03/04/17 03/04/17 03/04/17 14:05 14:07 14:18 RBC Hgb Hct MCV MCH MCHC RDW Plt Count Lymphocytes # PT 13.5 H INR 1.4 H APTT 30.4 H ABG pH 7.22 L ABG pCO2 59 H ABG pO2 ABG HCO3 ABG Total CO2 25 H ABG O2 Saturation 93.4 L Sodium Potassium Chloride BUN Creatinine Glucose POC Glucose (mg/dL) 112 H Calcium Ionized Calcium [place] Phosphorus Magnesium Total Bilirubin AST ALT Alkaline Phosphatase Total Protein Albumin Crossmatch 03/04/17 03/04/17 03/04/17 15:12 16:04 16:08 RBC Hgb Hct MCV MCH MCHC RDW Plt Count Lymphocytes # PT INR APTT ABG pH 7.29 L ABG pCO2 ABG pO2 169 H ABG HCO3 ABG Total CO2 ABG O2 Saturation 99.0 H Sodium Potassium Chloride BUN Creatinine Glucose POC Glucose (mg/dL) 116 H 152 H Calcium Ionized Calcium [place] Phosphorus Magnesium Total Bilirubin AST ALT Alkaline Phosphatase Total Protein Albumin Crossmatch 03/04/17 03/04/17 03/04/17 17:13 17:18 17:30 RBC 3.35 L Hgb 7.3 L Hct 23.4 L MCV 69.8 L D MCH 21.7 L MCHC RDW 21.1 H Plt Count Lymphocytes # 0.9 L PT INR APTT ABG pH ABG pCO2 ABG pO2 180 H ABG HCO3 20 L ABG Total CO2 ABG O2 Saturation 100.0 H Sodium Potassium Chloride BUN Creatinine Glucose POC Glucose (mg/dL) 187 H Calcium Ionized Calcium [place] Phosphorus Magnesium Total Bilirubin AST ALT Alkaline Phosphatase Total Protein Albumin Crossmatch 03/04/17 03/04/17 03/04/17 17:30 17:30 18:07 RBC Hgb Hct MCV MCH MCHC RDW Plt Count Lymphocytes # PT 12.5 H INR 1.3 H APTT ABG pH ABG pCO2 ABG pO2 ABG HCO3 ABG Total CO2 ABG O2 Saturation Sodium Potassium Chloride BUN Creatinine Glucose POC Glucose (mg/dL) 278 H Calcium Ionized Calcium Lu[place] 3.5 L* Phosphorus Magnesium Total Bilirubin AST ALT Alkaline Phosphatase Total Protein Albumin Crossmatch 03/04/17 03/04/17 03/04/17 19:28 19:59 20:33 RBC Hgb Hct MCV MCH MCHC RDW Plt Count Lymphocytes # PT INR APTT ABG pH ABG pCO2 ABG pO2 ABG HCO3 ABG Total CO2 ABG O2 Saturation Sodium Potassium Chloride BUN Creatinine Glucose POC Glucose (mg/dL) 275 H 258 H 216 H Calcium Ionized Calcium [place] Phosphorus Magnesium Total Bilirubin AST ALT Alkaline Phosphatase Total Protein Albumin Crossmatch 03/04/17 03/04/17 03/04/17 21:55 22:10 22:10 RBC 3.38 L Hgb 8.2 L Hct 25.0 L MCV 74.0 L MCH 24.1 L MCHC RDW 22.4 H Plt Count 109 L Lymphocytes # PT 14.8 H INR 1.5 H APTT 32.3 H ABG pH ABG pCO2 ABG pO2 ABG HCO3 ABG Total CO2 ABG O2 Saturation Sodium Potassium Chloride BUN Creatinine Glucose POC Glucose (mg/dL) 155 H Calcium Ionized Calcium [place] Phosphorus Magnesium Total Bilirubin AST ALT Alkaline Phosphatase Total Protein Albumin Crossmatch 03/04/17 03/04/17 03/04/17 22:10 23:15 23:54 RBC Hgb Hct MCV MCH MCHC RDW Plt Count Lymphocytes # PT INR APTT ABG pH ABG pCO2 ABG pO2 ABG HCO3 ABG Total CO2 ABG O2 Saturation Sodium Potassium 3.3 L Chloride 108 H BUN Creatinine Glucose 148 H POC Glucose (mg/dL) 160 H 152 H Calcium 6.5 L* Ionized Calcium Lu[place] 4.0 L Phosphorus 2.2 L Magnesium Total Bilirubin AST ALT Alkaline Phosphatase Total Protein Albumin Crossmatch 03/05/17 03/05/17 03/05/17 00:47 01:06 02:06 RBC 3.65 L Hgb 8.6 L Hct 26.5 L MCV 72.6 L MCH 23.6 L MCHC RDW 21.4 H Plt Count 129 L Lymphocytes # PT INR APTT ABG pH ABG pCO2 ABG pO2 ABG HCO3 ABG Total CO2 ABG O2 Saturation Sodium Potassium Chloride BUN Creatinine Glucose POC Glucose (mg/dL) 131 H 120 H Calcium Ionized Calcium [place] Phosphorus Magnesium Total Bilirubin AST ALT Alkaline Phosphatase Total Protein Albumin Crossmatch 03/05/17 03/05/17 03/05/17 03:13 04:00 04:00 RBC 3.49 L Hgb 8.2 L Hct 25.5 L MCV 73.0 L MCH 23.5 L MCHC RDW 22.0 H Plt Count 114 L Lymphocytes # PT INR APTT ABG pH ABG pCO2 ABG pO2 ABG HCO3 ABG Total CO2 ABG O2 Saturation Sodium 146 H Potassium Chloride 109 H BUN 20 H Creatinine 1.10 H Glucose 103 H POC Glucose (mg/dL) 106 H Calcium 7.2 L Ionized Calcium Luz Elena 4.1 L Phosphorus Magnesium Total Bilirubin 1.5 H AST 143 H ALT 67 H Alkaline Phosphatase 26 L Total Protein 4.7 L Albumin 3.2 L Crossmatch 03/05/17 03/05/17 03/05/17 04:00 04:05 05:16 RBC Hgb Hct MCV MCH MCHC RDW Plt Count Lymphocytes # PT 13.8 H INR 1.4 H APTT ABG pH ABG pCO2 ABG pO2 ABG HCO3 ABG Total CO2 ABG O2 Saturation Sodium Potassium Chloride BUN Creatinine Glucose POC Glucose (mg/dL) 108 H 129 H Calcium Ionized Calcium [place] Phosphorus Magnesium Total Bilirubin AST ALT Alkaline Phosphatase Total Protein Albumin Crossmatch 03/05/17 03/05/17 03/05/17 05:28 06:18 07:20 RBC Hgb Hct MCV MCH MCHC RDW Plt Count Lymphocytes # PT INR APTT ABG pH ABG pCO2 ABG pO2 56 L ABG HCO3 ABG Total CO2 26 H ABG O2 Saturation 88.0 L Sodium Potassium Chloride BUN Creatinine Glucose POC Glucose (mg/dL) 138 H 152 H Calcium Ionized Calcium [place] Phosphorus Magnesium Total Bilirubin AST ALT Alkaline Phosphatase Total Protein Albumin Crossmatch 03/05/17 03/05/17 03/05/17 08:12 08:30 09:08 RBC Hgb Hct MCV MCH MCHC RDW Plt Count Lymphocytes # PT INR APTT ABG pH ABG pCO2 ABG pO2 56 L ABG HCO3 ABG Total CO2 25 H ABG O2 Saturation 88.7 L Sodium Potassium Chloride BUN Creatinine Glucose POC Glucose (mg/dL) 136 H 142 H Calcium Ionized Calcium [place] Phosphorus Magnesium Total Bilirubin AST ALT Alkaline Phosphatase Total Protein Albumin Crossmatch - Diagnostic Findings Chest x-ray: image reviewed Assessment and Plan Plan: Impression: #1 Severe bicuspid aortic stenosis, status post aortic valve replacement utilizing a #25 mm magna ease bioprosthetic valve. Postoperative day #1. #2 Postoperative mediastinal bleeding and hypotension requiring return to OR. Postoperative day #1. Current hemoglobin 8.2. 4 units of packed red blood cells have been transfused, 2 units of fresh frozen plasma, 1 unit of platelets. #3 Acute hypoxic respiratory failure requiring intubation mechanical ventilatory support as an expected outcome of thoracotomy. #4 Diabetes mellitus. #5 Hyperlipidemia. #6 History of hypertension. #7 History of CVA/TIAs. #8 History of asthma. Plan: The patient was seen and evaluated by Dr. Denney. Her chest x-ray, ABGs and labs were all reviewed. Based on the relative hypoxemia we will go ahead and bump the PEEP from 8 up to 10 and repeat arterial blood gases. We will continue to wean the FiO2 as tolerated. We'll continue with bronchodilators every 4 hours. She is currently hemodynamically stable. We'll continue to monitor her here closely in the intensive care unit. Critical care time 38 minutes. Time with Patient: Greater than 30
[2017-03-05 10:38] LABS: ABG Base Excess -1.4 mmol/L; ABG HCO3 23 mmol/L (21-25); ABG PCO2 38 mmHg (35-45); ABG PH 7.39 (7.35-7.45); ABG PO2 239 mmHg (83-108); ABG TCO2 24 mmol/L (19-24)
[2017-03-05 10:39] LABS: ABG Hematocrit 35 % (34.0-46.0); ABG Oxygen Saturation 99.8 % (94-97)
[2017-03-05 10:39] LABS: ABG Base Excess -1.7 mmol/L; ABG HCO3 23 mmol/L (21-25); ABG Oxygen Saturation 99.8 % (94-97); ABG PCO2 43 mmHg (35-45); ABG PH 7.36 (7.35-7.45); ABG PO2 254 mmHg (83-108); ABG TCO2 25 mmol/L (19-24)
[2017-03-05 10:40] LABS: ABG Hematocrit 31 % (34.0-46.0)
[2017-03-05 10:40] LABS: ABG Base Excess -2.7 mmol/L; ABG HCO3 22 mmol/L (21-25); ABG Hematocrit 26 % (34.0-46.0); ABG Oxygen Saturation 99.9 % (94-97); ABG PCO2 42 mmHg (35-45); ABG PH 7.34 (7.35-7.45); ABG PO2 296 mmHg (83-108); ABG TCO2 24 mmol/L (19-24)
[2017-03-05 10:41] LABS: ABG Base Excess -2.6 mmol/L; ABG HCO3 23 mmol/L (21-25); ABG Hematocrit 27 % (34.0-46.0); ABG Oxygen Saturation 99.9 % (94-97); ABG PCO2 49 mmHg (35-45); ABG PO2 318 mmHg (83-108); ABG TCO2 25 mmol/L (19-24)
[2017-03-05 10:42] LABS: ABG HCO3 20 mmol/L (21-25); ABG PCO2 42 mmHg (35-45); ABG PH 7.31 (7.35-7.45); ABG PO2 179 mmHg (83-108); ABG TCO2 22 mmol/L (19-24)
[2017-03-05 10:43] LABS: ABG PCO2 38 mmHg (35-45); ABG PH 7.39 (7.35-7.45); ABG PO2 120 mmHg (83-108)
[2017-03-05 10:43] LABS: ABG Hematocrit 28 % (34.0-46.0); ABG Oxygen Saturation 99.5 % (94-97)
[2017-03-05 10:44] LABS: ABG Base Excess -1.7 mmol/L; ABG HCO3 22 mmol/L (21-25); ABG Hematocrit 24 % (34.0-46.0); ABG Oxygen Saturation 98.7 % (94-97); ABG TCO2 24 mmol/L (19-24)
[2017-03-05 10:45] LABS: ABG Base Excess -6.2 mmol/L; ABG HCO3 20 mmol/L (21-25); ABG Hematocrit 28 % (34.0-46.0); ABG Oxygen Saturation 91.1 % (94-97); ABG PCO2 45 mmHg (35-45); ABG PH 7.27 (7.35-7.45); ABG PO2 70 mmHg (83-108); ABG TCO2 21 mmol/L (19-24)
[2017-03-05 10:46] LABS: ABG Base Excess -10.2 mmol/L; ABG HCO3 15 mmol/L (21-25); ABG Hematocrit 30 % (34.0-46.0); ABG Oxygen Saturation 95.6 % (94-97); ABG PCO2 34 mmHg (35-45); ABG PH 7.27 (7.35-7.45); ABG PO2 89 mmHg (83-108); ABG TCO2 16 mmol/L (19-24)
[2017-03-05] MEDS: LACTATED RINGERS 1,000 ML IV SCH (10:46)
[2017-03-05] MEDS: METOPROLOL TARTRATE 12.5 MG TAB PO SCH (10:46)
[2017-03-05 11:22] LABS: Glucose,Whole Blood 102 mg/dL (75-99)
--- NOTE | 2017-03-05 11:22 | XR ---
EXAMINATION TYPE: XR chest 1V portable DATE OF EXAM: 03/05/2017 COMPARISON: 03/05/2017 6:00 AM HISTORY: Ventilatory dependent respiratory failure. TECHNIQUE: Single frontal view of the chest is obtained. FINDINGS: Small layering right pleural effusion is evident as well as scattered areas of atelectasis . Retrocardiac density may relate to atelectasis. Previously seen pulmonary vascular congestion and i nterstitial prominence has improved from the prior exam, now mild. Right [place], mediastinal postsurgical changes, left thoracostomy tube, enteric tube, and endotrac heal tube are unchanged in the interim. Mediastinal drains are also appreciated. Lung volumes are aga in suboptimal. Cardiac silhouette is stable. IMPRESSION: 1. Improved degree of pulmonary vascular congestion. 2. Small layering right pleural effusion and bibasilar atelectasis. 3. Stable lines, tubes, and postsurgical changes.
--- NOTE | 2017-03-05 11:29 | P.PN ---
Subjective Principal diagnosis: Critical aortic stenosis with bicuspid valve and aortic insufficiency, congestive heart failure, CVA/TIA, diabetes mellitus type 2, hyperlipidemia, hypertension, osteoarthritis, coronary artery disease, preoperative paroxysmal atrial fibrillation. POD #1, elective aortic valve replacement with a 25 mm Magna-Ease bioprosthetic aortic valve, a clip ligation into the left atrial appendage with a #35 mm Atriclip and intraoperative transesophageal echocardiogram. POD #1, emergent evacuation of clots, chest exploration and control of bleeding. Acute postoperative blood loss anemia, and expected outcome of surgery. Patient remains intubated on mechanical ventilator support and is sedated on Diprivan at 30 mcg/kg/m. She is not following any verbal commands at this time , but does draw from noxious stimuli. Objective - Vital Signs Vital signs: Vital Signs Temp 97.0 F L 03/04/17 18:00 Pulse 79 03/05/17 10:00 Resp 24 03/05/17 10:00 BP 68/40 03/04/17 16:00 Pulse Ox 96 03/05/17 10:00 Intake & Output 03/04/17 03/05/17 03/05/17 18:59 06:59 18:59 Intake Total 1876 3058.241 1048.588 Output Total 2532 905 434 Balance -656 2153.241 614.588 Weight 85.3 kg Intake: IV 500 1700 600 ACETAMINOPHEN IV (For NPO 100 ) 1,000 mg In Empty Bag 1 bag @ 400 mls/hr IVPB Q6HR [facility] Rx#:[id number] Albumin Human 5% 250 ml 500 In Empty Bag 1 bag @ 250 mls/hr IVPB ONCE ONE Rx#: [id number] Calcium Gluconate 2,000 100 100 mg In Sodium Chloride 0.9 % 100 ml @ 100 mls/hr IVPB ONCE PRN Rx#: [id number] Lactated Ringers 1,000 ml 500 550 200 @ 50 mls/hr IV .Q20H [facility] Rx#:[id number] Magnesium Sulfate-D5w Pmx 100 200 1 gm In Dextrose/Water 1 100ml.bag @ 100 mls/hr IVPB Q1H [facility] Rx#: [id number] Sodium Phosphate 10 mmol 250 In Sodium Chloride 0.9% 250 ml @ 125 mls/hr IVPB ONCE ONE Rx#:[id number] ceFAZolin 2 gm In Sodium 100 100 Chloride 0.9% 100 ml @ 100 mls/hr IVPB Q8HR [facility] Rx#:[id number] Intake, IV Titration 738.241 138.588 Amount Amiodarone 450 mg In 318.827 Dextrose 5% in Water 250 ml @ 1 MG/MIN 33.33 mls/ hr IV .Q7H31M [facility] Rx#: [id number] Clevidipine Butyrate 25 5.501 mg In Empty Bag 1 bag @ 1 MG/HR 2 mls/hr IV .Q24H [facility] Rx#:[id number] Insulin Regular 100 unit 10.59 In Sodium Chloride 0.9% 100 ml @ Per Protocol IV .Q0M [facility] Rx#:[id number] Milrinone-D5w Pmx 20 mg 100 In Dextrose/Water 1 100ml .bag @ 0.3 MCG/KG/MIN 6. 77 mls/hr IV .[id number] [facility] Rx#:[id number] Norepinephrin 4 mg-0.9% 220.312 Ns Pmx 4 mg In 250 ml @ Titrate IV .Q0M [facility] Rx#: [id number] Potassium Chloride 10 meq 100 In Water For Injection 1 100ml.bag @ 100 mls/hr IVPB Q1H [facility] Rx#: [id number] Propofol 1,000 mg In 100 83.011 38.588 ml @ Titrate IV .Q0M [facility] Rx#:[id number] Blood Product 1376 620 310 Ffp 24 Cpd Unit 317 [id number] Ffp 24 Cpd Unit 324 [id number] Platelet Pheresis Acda 425 Unit [id number] Rc As-1 Unit 310 [id number] Rc As-3 Unit 310 [id number] Rc As-3 Unit 0 310 [id number] Rc Pheresis 2 As3 Unit 0 310 [id number] Output: Chest Tube Drainage 1400 535 89 Left Lateral Chest 89 9 Mediastinal x 2 1400 446 80 Urine 1132 370 345 Other: Voiding Method Indwelling Catheter Indwelling Catheter Indwelling Catheter ABP, PAP, CO, CI - Last Documented Arterial Blood Pressure 142/56 Pulmonary Artery Pressure 34/23 Cardiac Output 3.8 Cardiac Index 2.2 - Exam Remains intubated with mechanical ventilator support, she is currently sedated on 30 mcg/kg/m of Diprivan. - Constitutional General appearance: Present: cooperative - EENT EENT Comment(s): Scleral edema Eyes: Present: PERRLA - Neck Details: Right IJ Cordis with [place]-E[place] catheter in place, current cardiac output is 4.2 , cardiac index is 2.4, PA pressures are 34/21, CVP is 18. No JVD present. - Respiratory Details: Scattered rhonchi throughout, diminished bilateral bases. Respirations are symmetrical and unlabored with mechanical ventilator support. Current ventilator settings are as follows: SIMV 14, TV 500, PEEP 5, pressure port 5, FiO2 90%. Left pleural chest tube without air leak, remains to low continuous wall suction. Draining thin serosanguineous drainage, 55 mL output in the last 8 hours, 85 mL since surgery. Mediastinal chest tubes without air leak, remains to low continuous wall suction. Draining thin serosanguineous drainage , 255 mL output in the last 8 hours, 1850 mL output since surgery. Oxygen saturation are 98% on current vent settings. - Cardiovascular Details: Regular rhythm and rate, positive rub. Normal S1 and S2, negative for S3 gallop or murmur. Bedside telemetry showing DDD paced rhythm heart rate 70. Underlying pacemaker rhythm is sinus bradycardia with first-degree heart block heart rate 55-60. Sternum is stable, heart hugger in place. AV wires intact and hard to pacemaker generator on DDD mode heart rate 70. - Gastrointestinal Gastrointestinal Comment(s): Abdomen is soft, distended, nontender. Positive hypoactive bowel sounds to all 4 abdominal quadrants. OG tube in place to low intermittent wall suction, 150 mL output since surgery. No organomegaly. - Genitourinary Genitourinary Comment(s): Clear yellow urine, adequate output. Cuellar catheter for accurate I&O. - Integumentary Integumentary Comment(s): Midline sternal incision clean dry and well approximated. Silver dressing intact, no drainage noted. Skin is warm and dry, no cyanosis or clubbing. +2 generalized edema. Knee-high CHAVA hose and sponge compression devices in place to her bilateral lower extremities. - Musculoskeletal Musculoskeletal: Present: generalized weakness - Psychiatric Psychiatric Comment(s): Remains sedated on Diprivan at this time. - Allied health notes Allied health notes reviewed: nursing - Labs CBC & Chem 7: 03/05/17 04:00 03/05/17 04:00 Labs: Abnormal Lab Results - Last 24 Hours (Table) 02/23/17 03/04/17 03/04/17 Range/Units 09:08 09:39 10:42 RBC (3.80-5.40) m/uL Hgb (11.4-16.0) gm/dL Hct (34.0-46.0) % MCV (80.0-100.0) fL MCH (25.0-35.0) pg MCHC (31.0-37.0) g/dL RDW (11.5-15.5) % Plt Count (150-450) k/uL Lymphocytes # (1.0-4.8) k/uL PT (9.0-12.0) sec INR (<1.2) APTT (22.0-30.0) sec ABG pH (7.35-7.45) ABG pCO2 (35-45) mmHg ABG pO2 239 H 254 H (83-108) mmHg ABG HCO3 (21-25) mmol/L ABG Total CO2 25 H (19-24) mmol/L ABG O2 Saturation 99.8 H 99.8 H (94-97) % ABG Hematocrit 31 L (34.0-46.0) % ABG Sodium (135-146) mmol/L ABG Potassium (3.4-4.5) mmol/L Sodium (137-145) mmol/L Potassium (3.5-5.1) mmol/L Chloride (98-107) mmol/L BUN (7-17) mg/dL Creatinine (0.52-1.04) mg/dL Glucose (74-99) mg/dL POC Glucose (mg/dL) (75-99) mg/dL Calcium (8.4-10.2) mg/dL Ionized Calcium Luz Elena (4.5-5.3) mg/dL Phosphorus (2.5-4.5) mg/dL Magnesium (1.6-2.3) mg/dL Total Bilirubin (0.2-1.3) mg/dL AST (14-36) U/L ALT (9-52) U/L Alkaline Phosphatase (38-126) U/L Total Protein (6.3-8.2) g/dL Albumin (3.5-5.0) g/dL Arterial Blood Potassium (3.4-4.5) mmol/L Crossmatch See Detail 03/04/17 03/04/17 03/04/17 Range/Units 11:09 11:09 11:40 RBC (3.80-5.40) m/uL Hgb (11.4-16.0) gm/dL Hct (34.0-46.0) % MCV (80.0-100.0) fL MCH (25.0-35.0) pg MCHC (31.0-37.0) g/dL RDW (11.5-15.5) % Plt Count (150-450) k/uL Lymphocytes # (1.0-4.8) k/uL PT (9.0-12.0) sec INR (<1.2) APTT (22.0-30.0) sec ABG pH 7.34 L (7.35-7.45) ABG pCO2 (35-45) mmHg ABG pO2 296 H (83-108) mmHg ABG HCO3 (21-25) mmol/L ABG Total CO2 (19-24) mmol/L ABG O2 Saturation 99.9 H (94-97) % ABG Hematocrit 26 L (34.0-46.0) % ABG Sodium (135-146) mmol/L ABG Potassium (3.4-4.5) mmol/L Sodium (137-145) mmol/L Potassium (3.5-5.1) mmol/L Chloride (98-107) mmol/L BUN (7-17) mg/dL Creatinine (0.52-1.04) mg/dL Glucose (74-99) mg/dL POC Glucose (mg/dL) 301 H 267 H (75-99) mg/dL Calcium (8.4-10.2) mg/dL Ionized Calcium Luz Elena (4.5-5.3) mg/dL Phosphorus (2.5-4.5) mg/dL Magnesium (1.6-2.3) mg/dL Total Bilirubin (0.2-1.3) mg/dL AST (14-36) U/L ALT (9-52) U/L Alkaline Phosphatase (38-126) U/L Total Protein (6.3-8.2) g/dL Albumin (3.5-5.0) g/dL Arterial Blood Potassium (3.4-4.5) mmol/L Crossmatch 03/04/17 03/04/17 03/04/17 Range/Units 11:41 12:39 12:39 RBC (3.80-5.40) m/uL Hgb (11.4-16.0) gm/dL Hct (34.0-46.0) % MCV (80.0-100.0) fL MCH (25.0-35.0) pg MCHC (31.0-37.0) g/dL RDW (11.5-15.5) % Plt Count (150-450) k/uL Lymphocytes # (1.0-4.8) k/uL PT (9.0-12.0) sec INR (<1.2) APTT (22.0-30.0) sec ABG pH 7.30 L 7.31 L (7.35-7.45) ABG pCO2 49 H (35-45) mmHg ABG pO2 318 H 179 H (83-108) mmHg ABG HCO3 20 L (21-25) mmol/L ABG Total CO2 25 H (19-24) mmol/L ABG O2 Saturation 99.9 H 99.5 H (94-97) % ABG Hematocrit 27 L 28 L (34.0-46.0) % ABG Sodium (135-146) mmol/L ABG Potassium 3.1 L (3.4-4.5) mmol/L Sodium (137-145) mmol/L Potassium (3.5-5.1) mmol/L Chloride (98-107) mmol/L BUN (7-17) mg/dL Creatinine (0.52-1.04) mg/dL Glucose (74-99) mg/dL POC Glucose (mg/dL) 206 H (75-99) mg/dL Calcium (8.4-10.2) mg/dL Ionized Calcium Luz Elena (4.5-5.3) mg/dL Phosphorus (2.5-4.5) mg/dL Magnesium (1.6-2.3) mg/dL Total Bilirubin (0.2-1.3) mg/dL AST (14-36) U/L ALT (9-52) U/L Alkaline Phosphatase (38-126) U/L Total Protein (6.3-8.2) g/dL Albumin (3.5-5.0) g/dL Arterial Blood Potassium 3.1 L (3.4-4.5) mmol/L Crossmatch 03/04/17 03/04/17 03/04/17 Range/Units 14:05 14:05 14:05 RBC 3.57 L (3.80-5.40) m/uL Hgb 6.8 L* D (11.4-16.0) gm/dL Hct 22.9 L (34.0-46.0) % MCV 64.0 L (80.0-100.0) fL MCH 19.1 L (25.0-35.0) pg MCHC 29.8 L (31.0-37.0) g/dL RDW 16.2 H (11.5-15.5) % Plt Count 94 L D (150-450) k/uL Lymphocytes # (1.0-4.8) k/uL PT 13.5 H (9.0-12.0) sec INR 1.4 H (<1.2) APTT 30.4 H (22.0-30.0) sec ABG pH (7.35-7.45) ABG pCO2 (35-45) mmHg ABG pO2 (83-108) mmHg ABG HCO3 (21-25) mmol/L ABG Total CO2 (19-24) mmol/L ABG O2 Saturation (94-97) % ABG Hematocrit (34.0-46.0) % ABG Sodium (135-146) mmol/L ABG Potassium (3.4-4.5) mmol/L Sodium (137-145) mmol/L Potassium 3.3 L (3.5-5.1) mmol/L Chloride 109 H (98-107) mmol/L BUN (7-17) mg/dL Creatinine (0.52-1.04) mg/dL Glucose (74-99) mg/dL POC Glucose (mg/dL) (75-99) mg/dL Calcium 7.4 L (8.4-10.2) mg/dL Ionized Calcium Luz Elena (4.5-5.3) mg/dL Phosphorus (2.5-4.5) mg/dL Magnesium 2.5 H (1.6-2.3) mg/dL Total Bilirubin (0.2-1.3) mg/dL AST 42 H (14-36) U/L ALT (9-52) U/L Alkaline Phosphatase 32 L (38-126) U/L Total Protein 4.9 L (6.3-8.2) g/dL Albumin 3.4 L (3.5-5.0) g/dL Arterial Blood Potassium (3.4-4.5) mmol/L Crossmatch 03/04/17 03/04/17 03/04/17 Range/Units 14:07 14:18 15:12 RBC (3.80-5.40) m/uL Hgb (11.4-16.0) gm/dL Hct (34.0-46.0) % MCV (80.0-100.0) fL MCH (25.0-35.0) pg MCHC (31.0-37.0) g/dL RDW (11.5-15.5) % Plt Count (150-450) k/uL Lymphocytes # (1.0-4.8) k/uL PT (9.0-12.0) sec INR (<1.2) APTT (22.0-30.0) sec ABG pH 7.22 L (7.35-7.45) ABG pCO2 59 H (35-45) mmHg ABG pO2 (83-108) mmHg ABG HCO3 (21-25) mmol/L ABG Total CO2 25 H (19-24) mmol/L ABG O2 Saturation 93.4 L (94-97) % ABG Hematocrit (34.0-46.0) % ABG Sodium (135-146) mmol/L ABG Potassium (3.4-4.5) mmol/L Sodium (137-145) mmol/L Potassium (3.5-5.1) mmol/L Chloride (98-107) mmol/L BUN (7-17) mg/dL Creatinine (0.52-1.04) mg/dL Glucose (74-99) mg/dL POC Glucose (mg/dL) 112 H 116 H (75-99) mg/dL Calcium (8.4-10.2) mg/dL Ionized Calcium Luz Elena (4.5-5.3) mg/dL Phosphorus (2.5-4.5) mg/dL Magnesium (1.6-2.3) mg/dL Total Bilirubin (0.2-1.3) mg/dL AST (14-36) U/L ALT (9-52) U/L Alkaline Phosphatase (38-126) U/L Total Protein (6.3-8.2) g/dL Albumin (3.5-5.0) g/dL Arterial Blood Potassium (3.4-4.5) mmol/L Crossmatch 03/04/17 03/04/17 03/04/17 Range/Units 16:04 16:08 17:13 RBC (3.80-5.40) m/uL Hgb (11.4-16.0) gm/dL Hct (34.0-46.0) % MCV (80.0-100.0) fL MCH (25.0-35.0) pg MCHC (31.0-37.0) g/dL RDW (11.5-15.5) % Plt Count (150-450) k/uL Lymphocytes # (1.0-4.8) k/uL PT (9.0-12.0) sec INR (<1.2) APTT (22.0-30.0) sec ABG pH 7.29 L (7.35-7.45) ABG pCO2 (35-45) mmHg ABG pO2 169 H (83-108) mmHg ABG HCO3 (21-25) mmol/L ABG Total CO2 (19-24) mmol/L ABG O2 Saturation 99.0 H (94-97) % ABG Hematocrit (34.0-46.0) % ABG Sodium (135-146) mmol/L ABG Potassium (3.4-4.5) mmol/L Sodium (137-145) mmol/L Potassium (3.5-5.1) mmol/L Chloride (98-107) mmol/L BUN (7-17) mg/dL Creatinine (0.52-1.04) mg/dL Glucose (74-99) mg/dL POC Glucose (mg/dL) 152 H 187 H (75-99) mg/dL Calcium (8.4-10.2) mg/dL Ionized Calcium Luz Elena (4.5-5.3) mg/dL Phosphorus (2.5-4.5) mg/dL Magnesium (1.6-2.3) mg/dL Total Bilirubin (0.2-1.3) mg/dL AST (14-36) U/L ALT (9-52) U/L Alkaline Phosphatase (38-126) U/L Total Protein (6.3-8.2) g/dL Albumin (3.5-5.0) g/dL Arterial Blood Potassium (3.4-4.5) mmol/L Crossmatch 03/04/17 03/04/17 03/04/17 Range/Units 17:18 17:30 17:30 RBC 3.35 L (3.80-5.40) m/uL Hgb 7.3 L (11.4-16.0) gm/dL Hct 23.4 L (34.0-46.0) % MCV 69.8 L D (80.0-100.0) fL MCH 21.7 L (25.0-35.0) pg MCHC (31.0-37.0) g/dL RDW 21.1 H (11.5-15.5) % Plt Count (150-450) k/uL Lymphocytes # 0.9 L (1.0-4.8) k/uL PT 12.5 H (9.0-12.0) sec INR 1.3 H (<1.2) APTT (22.0-30.0) sec ABG pH (7.35-7.45) ABG pCO2 (35-45) mmHg ABG pO2 180 H (83-108) mmHg ABG HCO3 20 L (21-25) mmol/L ABG Total CO2 (19-24) mmol/L ABG O2 Saturation 100.0 H (94-97) % ABG Hematocrit (34.0-46.0) % ABG Sodium (135-146) mmol/L ABG Potassium (3.4-4.5) mmol/L Sodium (137-145) mmol/L Potassium (3.5-5.1) mmol/L Chloride (98-107) mmol/L BUN (7-17) mg/dL Creatinine (0.52-1.04) mg/dL Glucose (74-99) mg/dL POC Glucose (mg/dL) (75-99) mg/dL Calcium (8.4-10.2) mg/dL Ionized Calcium Luz Elena (4.5-5.3) mg/dL Phosphorus (2.5-4.5) mg/dL Magnesium (1.6-2.3) mg/dL Total Bilirubin (0.2-1.3) mg/dL AST (14-36) U/L ALT (9-52) U/L Alkaline Phosphatase (38-126) U/L Total Protein (6.3-8.2) g/dL Albumin (3.5-5.0) g/dL Arterial Blood Potassium (3.4-4.5) mmol/L Crossmatch 03/04/17 03/04/17 03/04/17 Range/Units 17:30 18:07 19:28 RBC (3.80-5.40) m/uL Hgb (11.4-16.0) gm/dL Hct (34.0-46.0) % MCV (80.0-100.0) fL MCH (25.0-35.0) pg MCHC (31.0-37.0) g/dL RDW (11.5-15.5) % Plt Count (150-450) k/uL Lymphocytes # (1.0-4.8) k/uL PT (9.0-12.0) sec INR (<1.2) APTT (22.0-30.0) sec ABG pH (7.35-7.45) ABG pCO2 (35-45) mmHg ABG pO2 (83-108) mmHg ABG HCO3 (21-25) mmol/L ABG Total CO2 (19-24) mmol/L ABG O2 Saturation (94-97) % ABG Hematocrit (34.0-46.0) % ABG Sodium (135-146) mmol/L ABG Potassium (3.4-4.5) mmol/L Sodium (137-145) mmol/L Potassium (3.5-5.1) mmol/L Chloride (98-107) mmol/L BUN (7-17) mg/dL Creatinine (0.52-1.04) mg/dL Glucose (74-99) mg/dL POC Glucose (mg/dL) 278 H 275 H (75-99) mg/dL Calcium (8.4-10.2) mg/dL Ionized Calcium Luz Elena 3.5 L* (4.5-5.3) mg/dL Phosphorus (2.5-4.5) mg/dL Magnesium (1.6-2.3) mg/dL Total Bilirubin (0.2-1.3) mg/dL AST (14-36) U/L ALT (9-52) U/L Alkaline Phosphatase (38-126) U/L Total Protein (6.3-8.2) g/dL Albumin (3.5-5.0) g/dL Arterial Blood Potassium (3.4-4.5) mmol/L Crossmatch 03/04/17 03/04/17 03/04/17 Range/Units 19:28 19:56 19:59 RBC (3.80-5.40) m/uL Hgb (11.4-16.0) gm/dL Hct (34.0-46.0) % MCV (80.0-100.0) fL MCH (25.0-35.0) pg MCHC (31.0-37.0) g/dL RDW (11.5-15.5) % Plt Count (150-450) k/uL Lymphocytes # (1.0-4.8) k/uL PT (9.0-12.0) sec INR (<1.2) APTT (22.0-30.0) sec ABG pH 7.27 L 7.27 L (7.35-7.45) ABG pCO2 34 L (35-45) mmHg ABG pO2 70 L (83-108) mmHg ABG HCO3 15 L 20 L (21-25) mmol/L ABG Total CO2 16 L (19-24) mmol/L ABG O2 Saturation 91.1 L (94-97) % ABG Hematocrit 30 L 28 L (34.0-46.0) % ABG Sodium 148 H (135-146) mmol/L ABG Potassium 3.2 L (3.4-4.5) mmol/L Sodium (137-145) mmol/L Potassium (3.5-5.1) mmol/L Chloride (98-107) mmol/L BUN (7-17) mg/dL Creatinine (0.52-1.04) mg/dL Glucose (74-99) mg/dL POC Glucose (mg/dL) 258 H (75-99) mg/dL Calcium (8.4-10.2) mg/dL Ionized Calcium Luz Elena (4.5-5.3) mg/dL Phosphorus (2.5-4.5) mg/dL Magnesium (1.6-2.3) mg/dL Total Bilirubin (0.2-1.3) mg/dL AST (14-36) U/L ALT (9-52) U/L Alkaline Phosphatase (38-126) U/L Total Protein (6.3-8.2) g/dL Albumin (3.5-5.0) g/dL Arterial Blood Potassium 3.2 L (3.4-4.5) mmol/L Crossmatch 03/04/17 03/04/17 03/04/17 Range/Units 20:33 20:34 21:55 RBC (3.80-5.40) m/uL Hgb (11.4-16.0) gm/dL Hct (34.0-46.0) % MCV (80.0-100.0) fL MCH (25.0-35.0) pg MCHC (31.0-37.0) g/dL RDW (11.5-15.5) % Plt Count (150-450) k/uL Lymphocytes # (1.0-4.8) k/uL PT (9.0-12.0) sec INR (<1.2) APTT (22.0-30.0) sec ABG pH (7.35-7.45) ABG pCO2 (35-45) mmHg ABG pO2 120 H (83-108) mmHg ABG HCO3 (21-25) mmol/L ABG Total CO2 (19-24) mmol/L ABG O2 Saturation 98.7 H (94-97) % ABG Hematocrit 24 L (34.0-46.0) % ABG Sodium 148 H (135-146) mmol/L ABG Potassium (3.4-4.5) mmol/L Sodium (137-145) mmol/L Potassium (3.5-5.1) mmol/L Chloride (98-107) mmol/L BUN (7-17) mg/dL Creatinine (0.52-1.04) mg/dL Glucose (74-99) mg/dL POC Glucose (mg/dL) 216 H 155 H (75-99) mg/dL Calcium (8.4-10.2) mg/dL Ionized Calcium Luz Elena (4.5-5.3) mg/dL Phosphorus (2.5-4.5) mg/dL Magnesium (1.6-2.3) mg/dL Total Bilirubin (0.2-1.3) mg/dL AST (14-36) U/L ALT (9-52) U/L Alkaline Phosphatase (38-126) U/L Total Protein (6.3-8.2) g/dL Albumin (3.5-5.0) g/dL Arterial Blood Potassium (3.4-4.5) mmol/L Crossmatch 03/04/17 03/04/17 03/04/17 Range/Units 22:10 22:10 22:10 RBC 3.38 L (3.80-5.40) m/uL Hgb 8.2 L (11.4-16.0) gm/dL Hct 25.0 L (34.0-46.0) % MCV 74.0 L (80.0-100.0) fL MCH 24.1 L (25.0-35.0) pg MCHC (31.0-37.0) g/dL RDW 22.4 H (11.5-15.5) % Plt Count 109 L (150-450) k/uL Lymphocytes # (1.0-4.8) k/uL PT 14.8 H (9.0-12.0) sec INR 1.5 H (<1.2) APTT 32.3 H (22.0-30.0) sec ABG pH (7.35-7.45) ABG pCO2 (35-45) mmHg ABG pO2 (83-108) mmHg ABG HCO3 (21-25) mmol/L ABG Total CO2 (19-24) mmol/L ABG O2 Saturation (94-97) % ABG Hematocrit (34.0-46.0) % ABG Sodium (135-146) mmol/L ABG Potassium (3.4-4.5) mmol/L Sodium (137-145) mmol/L Potassium 3.3 L (3.5-5.1) mmol/L Chloride 108 H (98-107) mmol/L BUN (7-17) mg/dL Creatinine (0.52-1.04) mg/dL Glucose 148 H (74-99) mg/dL POC Glucose (mg/dL) (75-99) mg/dL Calcium 6.5 L* (8.4-10.2) mg/dL Ionized Calcium Luz Elena 4.0 L (4.5-5.3) mg/dL Phosphorus 2.2 L (2.5-4.5) mg/dL Magnesium (1.6-2.3) mg/dL Total Bilirubin (0.2-1.3) mg/dL AST (14-36) U/L ALT (9-52) U/L Alkaline Phosphatase (38-126) U/L Total Protein (6.3-8.2) g/dL Albumin (3.5-5.0) g/dL Arterial Blood Potassium (3.4-4.5) mmol/L Crossmatch 03/04/17 03/04/17 03/05/17 Range/Units 23:15 23:54 00:47 RBC 3.65 L (3.80-5.40) m/uL Hgb 8.6 L (11.4-16.0) gm/dL Hct 26.5 L (34.0-46.0) % MCV 72.6 L (80.0-100.0) fL MCH 23.6 L (25.0-35.0) pg MCHC (31.0-37.0) g/dL RDW 21.4 H (11.5-15.5) % Plt Count 129 L (150-450) k/uL Lymphocytes # (1.0-4.8) k/uL PT (9.0-12.0) sec INR (<1.2) APTT (22.0-30.0) sec ABG pH (7.35-7.45) ABG pCO2 (35-45) mmHg ABG pO2 (83-108) mmHg ABG HCO3 (21-25) mmol/L ABG Total CO2 (19-24) mmol/L ABG O2 Saturation (94-97) % ABG Hematocrit (34.0-46.0) % ABG Sodium (135-146) mmol/L ABG Potassium (3.4-4.5) mmol/L Sodium (137-145) mmol/L Potassium (3.5-5.1) mmol/L Chloride (98-107) mmol/L BUN (7-17) mg/dL Creatinine (0.52-1.04) mg/dL Glucose (74-99) mg/dL POC Glucose (mg/dL) 160 H 152 H (75-99) mg/dL Calcium (8.4-10.2) mg/dL Ionized Calcium Luz Elena (4.5-5.3) mg/dL Phosphorus (2.5-4.5) mg/dL Magnesium (1.6-2.3) mg/dL Total Bilirubin (0.2-1.3) mg/dL AST (14-36) U/L ALT (9-52) U/L Alkaline Phosphatase (38-126) U/L Total Protein (6.3-8.2) g/dL Albumin (3.5-5.0) g/dL Arterial Blood Potassium (3.4-4.5) mmol/L Crossmatch 03/05/17 03/05/17 03/05/17 Range/Units 01:06 02:06 03:13 RBC (3.80-5.40) m/uL Hgb (11.4-16.0) gm/dL Hct (34.0-46.0) % MCV (80.0-100.0) fL MCH (25.0-35.0) pg MCHC (31.0-37.0) g/dL RDW (11.5-15.5) % Plt Count (150-450) k/uL Lymphocytes # (1.0-4.8) k/uL PT (9.0-12.0) sec INR (<1.2) APTT (22.0-30.0) sec ABG pH (7.35-7.45) ABG pCO2 (35-45) mmHg ABG pO2 (83-108) mmHg ABG HCO3 (21-25) mmol/L ABG Total CO2 (19-24) mmol/L ABG O2 Saturation (94-97) % ABG Hematocrit (34.0-46.0) % ABG Sodium (135-146) mmol/L ABG Potassium (3.4-4.5) mmol/L Sodium (137-145) mmol/L Potassium (3.5-5.1) mmol/L Chloride (98-107) mmol/L BUN (7-17) mg/dL Creatinine (0.52-1.04) mg/dL Glucose (74-99) mg/dL POC Glucose (mg/dL) 131 H 120 H 106 H (75-99) mg/dL Calcium (8.4-10.2) mg/dL Ionized Calcium Luz Elena (4.5-5.3) mg/dL Phosphorus (2.5-4.5) mg/dL Magnesium (1.6-2.3) mg/dL Total Bilirubin (0.2-1.3) mg/dL AST (14-36) U/L ALT (9-52) U/L Alkaline Phosphatase (38-126) U/L Total Protein (6.3-8.2) g/dL Albumin (3.5-5.0) g/dL Arterial Blood Potassium (3.4-4.5) mmol/L Crossmatch 03/05/17 03/05/17 03/05/17 Range/Units 04:00 04:00 04:00 RBC 3.49 L (3.80-5.40) m/uL Hgb 8.2 L (11.4-16.0) gm/dL Hct 25.5 L (34.0-46.0) % MCV 73.0 L (80.0-100.0) fL MCH 23.5 L (25.0-35.0) pg MCHC (31.0-37.0) g/dL RDW 22.0 H (11.5-15.5) % Plt Count 114 L (150-450) k/uL Lymphocytes # (1.0-4.8) k/uL PT 13.8 H (9.0-12.0) sec INR 1.4 H (<1.2) APTT (22.0-30.0) sec ABG pH (7.35-7.45) ABG pCO2 (35-45) mmHg ABG pO2 (83-108) mmHg ABG HCO3 (21-25) mmol/L ABG Total CO2 (19-24) mmol/L ABG O2 Saturation (94-97) % ABG Hematocrit (34.0-46.0) % ABG Sodium (135-146) mmol/L ABG Potassium (3.4-4.5) mmol/L Sodium 146 H (137-145) mmol/L Potassium (3.5-5.1) mmol/L Chloride 109 H (98-107) mmol/L BUN 20 H (7-17) mg/dL Creatinine 1.10 H (0.52-1.04) mg/dL Glucose 103 H (74-99) mg/dL POC Glucose (mg/dL) (75-99) mg/dL Calcium 7.2 L (8.4-10.2) mg/dL Ionized Calcium Luz Elena 4.1 L (4.5-5.3) mg/dL Phosphorus (2.5-4.5) mg/dL Magnesium (1.6-2.3) mg/dL Total Bilirubin 1.5 H (0.2-1.3) mg/dL AST 143 H (14-36) U/L ALT 67 H (9-52) U/L Alkaline Phosphatase 26 L (38-126) U/L Total Protein 4.7 L (6.3-8.2) g/dL Albumin 3.2 L (3.5-5.0) g/dL Arterial Blood Potassium (3.4-4.5) mmol/L Crossmatch 03/05/17 03/05/17 03/05/17 Range/Units 04:05 05:16 05:28 RBC (3.80-5.40) m/uL Hgb (11.4-16.0) gm/dL Hct (34.0-46.0) % MCV (80.0-100.0) fL MCH (25.0-35.0) pg MCHC (31.0-37.0) g/dL RDW (11.5-15.5) % Plt Count (150-450) k/uL Lymphocytes # (1.0-4.8) k/uL PT (9.0-12.0) sec INR (<1.2) APTT (22.0-30.0) sec ABG pH (7.35-7.45) ABG pCO2 (35-45) mmHg ABG pO2 56 L (83-108) mmHg ABG HCO3 (21-25) mmol/L ABG Total CO2 26 H (19-24) mmol/L ABG O2 Saturation 88.0 L (94-97) % ABG Hematocrit (34.0-46.0) % ABG Sodium (135-146) mmol/L ABG Potassium (3.4-4.5) mmol/L Sodium (137-145) mmol/L Potassium (3.5-5.1) mmol/L Chloride (98-107) mmol/L BUN (7-17) mg/dL Creatinine (0.52-1.04) mg/dL Glucose (74-99) mg/dL POC Glucose (mg/dL) 108 H 129 H (75-99) mg/dL Calcium (8.4-10.2) mg/dL Ionized Calcium Luz Elena (4.5-5.3) mg/dL Phosphorus (2.5-4.5) mg/dL Magnesium (1.6-2.3) mg/dL Total Bilirubin (0.2-1.3) mg/dL AST (14-36) U/L ALT (9-52) U/L Alkaline Phosphatase (38-126) U/L Total Protein (6.3-8.2) g/dL Albumin (3.5-5.0) g/dL Arterial Blood Potassium (3.4-4.5) mmol/L Crossmatch 03/05/17 03/05/17 03/05/17 Range/Units 06:18 07:20 08:12 RBC (3.80-5.40) m/uL Hgb (11.4-16.0) gm/dL Hct (34.0-46.0) % MCV (80.0-100.0) fL MCH (25.0-35.0) pg MCHC (31.0-37.0) g/dL RDW (11.5-15.5) % Plt Count (150-450) k/uL Lymphocytes # (1.0-4.8) k/uL PT (9.0-12.0) sec INR (<1.2) APTT (22.0-30.0) sec ABG pH (7.35-7.45) ABG pCO2 (35-45) mmHg ABG pO2 (83-108) mmHg ABG HCO3 (21-25) mmol/L ABG Total CO2 (19-24) mmol/L ABG O2 Saturation (94-97) % ABG Hematocrit (34.0-46.0) % ABG Sodium (135-146) mmol/L ABG Potassium (3.4-4.5) mmol/L Sodium (137-145) mmol/L Potassium (3.5-5.1) mmol/L Chloride (98-107) mmol/L BUN (7-17) mg/dL Creatinine (0.52-1.04) mg/dL Glucose (74-99) mg/dL POC Glucose (mg/dL) 138 H 152 H 136 H (75-99) mg/dL Calcium (8.4-10.2) mg/dL Ionized Calcium Luz Elena (4.5-5.3) mg/dL Phosphorus (2.5-4.5) mg/dL Magnesium (1.6-2.3) mg/dL Total Bilirubin (0.2-1.3) mg/dL AST (14-36) U/L ALT (9-52) U/L Alkaline Phosphatase (38-126) U/L Total Protein (6.3-8.2) g/dL Albumin (3.5-5.0) g/dL Arterial Blood Potassium (3.4-4.5) mmol/L Crossmatch 03/05/17 03/05/17 03/05/17 Range/Units 08:30 09:08 10:11 RBC (3.80-5.40) m/uL Hgb (11.4-16.0) gm/dL Hct (34.0-46.0) % MCV (80.0-100.0) fL MCH (25.0-35.0) pg MCHC (31.0-37.0) g/dL RDW (11.5-15.5) % Plt Count (150-450) k/uL Lymphocytes # (1.0-4.8) k/uL PT (9.0-12.0) sec INR (<1.2) APTT (22.0-30.0) sec ABG pH (7.35-7.45) ABG pCO2 (35-45) mmHg ABG pO2 56 L (83-108) mmHg ABG HCO3 (21-25) mmol/L ABG Total CO2 25 H (19-24) mmol/L ABG O2 Saturation 88.7 L (94-97) % ABG Hematocrit (34.0-46.0) % ABG Sodium (135-146) mmol/L ABG Potassium (3.4-4.5) mmol/L Sodium (137-145) mmol/L Potassium (3.5-5.1) mmol/L Chloride (98-107) mmol/L BUN (7-17) mg/dL Creatinine (0.52-1.04) mg/dL Glucose (74-99) mg/dL POC Glucose (mg/dL) 142 H 122 H (75-99) mg/dL Calcium (8.4-10.2) mg/dL Ionized Calcium Luz Elena (4.5-5.3) mg/dL Phosphorus (2.5-4.5) mg/dL Magnesium (1.6-2.3) mg/dL Total Bilirubin (0.2-1.3) mg/dL AST (14-36) U/L ALT (9-52) U/L Alkaline Phosphatase (38-126) U/L Total Protein (6.3-8.2) g/dL Albumin (3.5-5.0) g/dL Arterial Blood Potassium (3.4-4.5) mmol/L Crossmatch - Imaging and Cardiology Chest x-ray: report reviewed, image reviewed Assessment and Plan (1) Paroxysmal atrial fibrillation Status: Acute (2) Acute blood loss as cause of postoperative anemia Status: Acute (3) Status post aortic valve replacement Status: Acute (4) Bicuspid aortic valve Status: Acute (5) Diabetes mellitus, insulin dependent (IDDM), controlled Status: Acute (6) Hypertension Status: Acute (7) Severe aortic stenosis Status: Acute Plan: 1. Hold metoprolol this a.m., continue aspirin, Plavix, and heparin subcu. 2. Change epicardial pacemaker settings to AAI of 80. 3. Pulmonary and ventilator management per Dr. Denney, ventilator settings changes made to AC 24, TV 350, FiO2 100%, PEEP 8. 4. Monitor daily labs and chest x-ray. 5. DVT and GI prophylaxis in place. 6. Comorbid conditions per primary care management. 7. More recommendations as patient progresses. Time with Patient: Greater than 30
[2017-03-05] MEDS: NOREPINEPHRIN 4 MG-0.9% NS PMX 4 MG/250 ML ML IV SCH (11:34)
[2017-03-05 12:17] LABS: Glucose,Whole Blood 103 mg/dL (75-99)
[2017-03-05 12:32] LABS: Ionized Calcium 4.2 mg/dL (4.5-5.3)
[2017-03-05 12:50] LABS: Magnesium 2.4 mg/dL (1.6-2.3); Potassium 3.9 mmol/L (3.5-5.1)
[2017-03-05] MEDS ORDERED: MAGNESIUM HYDROXIDE 2,400 MG/10 ML CUP PO PRN (12:56)
[2017-03-05] MEDS ORDERED: BISACODYL 10 MG SUPP RECTAL PRN (12:56)
[2017-03-05] MEDS ORDERED: HYDROcodone/APAP 5-325MG 1 EACH TAB PO PRN (12:56)
[2017-03-05] MEDS ORDERED: IPRATROPIUM-ALBUTEROL 3 ML NEB INHALATION PRN (12:57)
--- NOTE | 2017-03-05 13:00 | OP ---
DATE OF SERVICE: 03/04/2017 ATTENDING SURGEON: DANDY LUZ MD PREOPERATIVE DIAGNOSIS: Postop bleed. POSTOPERATIVE DIAGNOSIS: Postop bleed. PROCEDURE: Reexploration of chest, evacuation of clot, control of bleed. ANESTHESIA: General. BLOOD LOSS: 200 mL. SUMMARY: Patient was brought back approximately 5 hours postaortic valve replacement for increased chest tube output and hemodynamic instability. Upon arrival in the operating room, patient was prepped and draped in the sterile fashion using ( ) sterile towels. The previous chest incision was opened and the sternal wires were removed. Upon evaluating, there was noted to be some generalized oozing from the tissues, the tissue was of relatively poor quality. However, upon exploration at the aortotomy site, there was noted to be a small amount of bright red bleeding from the corner of the aortotomy site, even though it had been closed with felt script, buttresses and BioGlue. A large 4-0 Prolene pledgeted suture was then placed at this area and tied down and a significant amount of clot was removed from around the heart posteriorly and the bleeding stopped. At this point, hemostasis was maintained, another chest tube was placed in the left pleural space and brought up through a separate lateral incision. At this point, sternum was then reclosed using 7, No. 6 sternal wires. Skin and subcutaneous tissue fascia closed in 3 layers. No complications. Patient tolerated the procedure well and was taken to the ICU in stable condition. [facility]ITALPeyton
[2017-03-05] MEDS ORDERED: Potassium Replacement Protocol 1 EACH MISC MISCELLANE PRN (13:56)
[2017-03-05 14:13] LABS: Glucose,Whole Blood 146 mg/dL (75-99)
[2017-03-05] MEDS ORDERED: CALCIUM GLUCONATE 2,000 MG in SODIUM CHLORIDE 0.9% 100 ML IVPB ONE (14:29)
[2017-03-05 15:19] LABS: Glucose,Whole Blood 143 mg/dL (75-99)
[2017-03-05 16:37] LABS: Glucose,Whole Blood 130 mg/dL (75-99)
[2017-03-05 17:26] LABS: Glucose,Whole Blood 117 mg/dL (75-99)
--- NOTE | 2017-03-05 18:11 | P.PN ---
Subjective Principal diagnosis: Status post eye at work replacement for bicuspid aortic valve and aortic stenosis. Patient had a surgery done yesterday. Patient is still intubated. Patient is on assist control with a tidal volume of 350 and PEEP of 8. Patient is on propofol, insulin drip, amiodarone drip and also Monopril 10 drip. She is also on Primacor. Apparently patient needed to go to the OR last night a cause of his mediastinal bleeding and hypotension. Her lab values showed hemoglobin 8.6 today. Have elected showed a potassium of 3.9. Patient is having urine output of about 50 mL an hour. Chest x-ray showed bilateral atelectasis with right- sided effusion. Patient had episodes of atrial fibrillation but currently in sinus bradycardia and junctional rhythm. Patient is atrial pacing at this time. Objective - Vital Signs Vital signs: Vital Signs Temp 97.0 F L 03/04/17 18:00 Pulse 79 03/05/17 17:00 Resp 23 03/05/17 17:00 BP 68/40 03/04/17 16:00 Pulse Ox 95 03/05/17 17:00 Intake & Output 03/04/17 03/05/17 03/05/17 18:59 06:59 18:59 Intake Total 1876 3058.241 1964.418 Output Total 2532 905 802 Balance -656 2153.241 1162.418 Weight 85.3 kg Intake: IV 500 1700 1100 ACETAMINOPHEN IV (For NPO 100 100 ) 1,000 mg In Empty Bag 1 bag @ 400 mls/hr IVPB Q6HR [facility] Rx#:[id number] Albumin Human 5% 250 ml 500 In Empty Bag 1 bag @ 250 mls/hr IVPB ONCE ONE Rx#: [id number] Calcium Gluconate 2,000 100 200 mg In Sodium Chloride 0.9 % 100 ml @ 100 mls/hr IVPB ONCE PRN Rx#: [id number] Lactated Ringers 1,000 ml 500 550 500 @ 50 mls/hr IV .Q20H [facility] Rx#:[id number] Magnesium Sulfate-D5w Pmx 100 200 1 gm In Dextrose/Water 1 100ml.bag @ 100 mls/hr IVPB Q1H [facility] Rx#: [id number] Sodium Phosphate 10 mmol 250 In Sodium Chloride 0.9% 250 ml @ 125 mls/hr IVPB ONCE ONE Rx#:[id number] ceFAZolin 2 gm In Sodium 100 100 Chloride 0.9% 100 ml @ 100 mls/hr IVPB Q8HR [facility] Rx#:[id number] Intake, IV Titration 738.241 554.418 Amount Amiodarone 450 mg In 318.827 148.829 Dextrose 5% in Water 250 ml @ 1 MG/MIN 33.33 mls/ hr IV .Q7H31M [facility] Rx#: [id number] Clevidipine Butyrate 25 5.501 0 mg In Empty Bag 1 bag @ 1 MG/HR 2 mls/hr IV .Q24H [facility] Rx#:[id number] Insulin Regular 100 unit 10.59 In Sodium Chloride 0.9% 100 ml @ Per Protocol IV .Q0M [facility] Rx#:[id number] Milrinone-D5w Pmx 20 mg 100 In Dextrose/Water 1 100ml .bag @ 0.3 MCG/KG/MIN 6. 77 mls/hr IV .[id number] [facility] Rx#:[id number] Norepinephrin 4 mg-0.9% 220.312 67.001 Ns Pmx 4 mg In 250 ml @ Titrate IV .Q0M [facility] Rx#: [id number] Potassium Chloride 10 meq 200 In Water For Injection 1 100ml.bag @ 100 mls/hr IVPB Q1H [facility] Rx#: [id number] Potassium Chloride 10 meq 100 In Water For Injection 1 100ml.bag @ 100 mls/hr IVPB Q1H [facility] Rx#: [id number] Propofol 1,000 mg In 100 83.011 38.588 ml @ Titrate IV .Q0M [facility] Rx#:[id number] Blood Product 1376 620 310 Ffp 24 Cpd Unit 317 [id number] Ffp 24 Cpd Unit 324 [id number] Platelet Pheresis Acda 425 Unit [id number] Rc As-1 Unit 310 [id number] Rc As-3 Unit 310 [id number] Rc As-3 Unit 0 310 [id number] Rc Pheresis 2 As3 Unit 0 310 [id number] Output: Chest Tube Drainage 1400 535 227 Left Lateral Chest 89 27 Mediastinal x 2 1400 446 200 Urine 1132 370 575 Other: Voiding Method Indwelling Catheter Indwelling Catheter Indwelling Catheter ABP, PAP, CO, CI - Last Documented Arterial Blood Pressure 130/49 Pulmonary Artery Pressure 32/24 Cardiac Output 4.2 Cardiac Index 2.4 - Exam GENERAL EXAM: Patient is to be treated and sedated HEENT: Normocephalic. N NECK: No masses, no nuchal rigidity. CHEST: No chest wall deformity. LUNGS: Scattered rhonchi and diminished breath sounds HEART: S1 and S2 normal regular. A cardiac rub heard ABDOMEN: No hepatosplenomegaly, normal bowel sounds, no guarding or rigidity. CENTRAL NERVOUS SYSTEM: Deferred EXTREMITIES: No cyanosis, clubbing or edema. - Labs CBC & Chem 7: 03/05/17 04:00 03/05/17 11:45 Labs: Abnormal Lab Results - Last 24 Hours (Table) 02/23/17 03/04/17 03/04/17 Range/Units 09:08 09:39 10:42 RBC (3.80-5.40) m/uL Hgb (11.4-16.0) gm/dL Hct (34.0-46.0) % MCV (80.0-100.0) fL MCH (25.0-35.0) pg RDW (11.5-15.5) % Plt Count (150-450) k/uL Lymphocytes # (1.0-4.8) k/uL PT (9.0-12.0) sec INR (<1.2) APTT (22.0-30.0) sec ABG pH (7.35-7.45) ABG pCO2 (35-45) mmHg ABG pO2 239 H 254 H (83-108) mmHg ABG HCO3 (21-25) mmol/L ABG Total CO2 25 H (19-24) mmol/L ABG O2 Saturation 99.8 H 99.8 H (94-97) % ABG Hematocrit 31 L (34.0-46.0) % ABG Sodium (135-146) mmol/L ABG Potassium (3.4-4.5) mmol/L Sodium (137-145) mmol/L Potassium (3.5-5.1) mmol/L Chloride (98-107) mmol/L BUN (7-17) mg/dL Creatinine (0.52-1.04) mg/dL Glucose (74-99) mg/dL POC Glucose (mg/dL) (75-99) mg/dL Calcium (8.4-10.2) mg/dL Ionized Calcium Luz Elena (4.5-5.3) mg/dL Phosphorus (2.5-4.5) mg/dL Magnesium (1.6-2.3) mg/dL Total Bilirubin (0.2-1.3) mg/dL AST (14-36) U/L ALT (9-52) U/L Alkaline Phosphatase (38-126) U/L Total Protein (6.3-8.2) g/dL Albumin (3.5-5.0) g/dL Arterial Blood Potassium (3.4-4.5) mmol/L Crossmatch See Detail 03/04/17 03/04/17 03/04/17 Range/Units 11:09 11:41 12:39 RBC (3.80-5.40) m/uL Hgb (11.4-16.0) gm/dL Hct (34.0-46.0) % MCV (80.0-100.0) fL MCH (25.0-35.0) pg RDW (11.5-15.5) % Plt Count (150-450) k/uL Lymphocytes # (1.0-4.8) k/uL PT (9.0-12.0) sec INR (<1.2) APTT (22.0-30.0) sec ABG pH 7.34 L 7.30 L 7.31 L (7.35-7.45) ABG pCO2 49 H (35-45) mmHg ABG pO2 296 H 318 H 179 H (83-108) mmHg ABG HCO3 20 L (21-25) mmol/L ABG Total CO2 25 H (19-24) mmol/L ABG O2 Saturation 99.9 H 99.9 H 99.5 H (94-97) % ABG Hematocrit 26 L 27 L 28 L (34.0-46.0) % ABG Sodium (135-146) mmol/L ABG Potassium 3.1 L (3.4-4.5) mmol/L Sodium (137-145) mmol/L Potassium (3.5-5.1) mmol/L Chloride (98-107) mmol/L BUN (7-17) mg/dL Creatinine (0.52-1.04) mg/dL Glucose (74-99) mg/dL POC Glucose (mg/dL) (75-99) mg/dL Calcium (8.4-10.2) mg/dL Ionized Calcium Luz Elena (4.5-5.3) mg/dL Phosphorus (2.5-4.5) mg/dL Magnesium (1.6-2.3) mg/dL Total Bilirubin (0.2-1.3) mg/dL AST (14-36) U/L ALT (9-52) U/L Alkaline Phosphatase (38-126) U/L Total Protein (6.3-8.2) g/dL Albumin (3.5-5.0) g/dL Arterial Blood Potassium 3.1 L (3.4-4.5) mmol/L Crossmatch 03/04/17 03/04/17 03/04/17 Range/Units 17:30 17:30 17:30 RBC 3.35 L (3.80-5.40) m/uL Hgb 7.3 L (11.4-16.0) gm/dL Hct 23.4 L (34.0-46.0) % MCV 69.8 L D (80.0-100.0) fL MCH 21.7 L (25.0-35.0) pg RDW 21.1 H (11.5-15.5) % Plt Count (150-450) k/uL Lymphocytes # 0.9 L (1.0-4.8) k/uL PT 12.5 H (9.0-12.0) sec INR 1.3 H (<1.2) APTT (22.0-30.0) sec ABG pH (7.35-7.45) ABG pCO2 (35-45) mmHg ABG pO2 (83-108) mmHg ABG HCO3 (21-25) mmol/L ABG Total CO2 (19-24) mmol/L ABG O2 Saturation (94-97) % ABG Hematocrit (34.0-46.0) % ABG Sodium (135-146) mmol/L ABG Potassium (3.4-4.5) mmol/L Sodium (137-145) mmol/L Potassium (3.5-5.1) mmol/L Chloride (98-107) mmol/L BUN (7-17) mg/dL Creatinine (0.52-1.04) mg/dL Glucose (74-99) mg/dL POC Glucose (mg/dL) (75-99) mg/dL Calcium (8.4-10.2) mg/dL Ionized Calcium Luz Elena 3.5 L* (4.5-5.3) mg/dL Phosphorus (2.5-4.5) mg/dL Magnesium (1.6-2.3) mg/dL Total Bilirubin (0.2-1.3) mg/dL AST (14-36) U/L ALT (9-52) U/L Alkaline Phosphatase (38-126) U/L Total Protein (6.3-8.2) g/dL Albumin (3.5-5.0) g/dL Arterial Blood Potassium (3.4-4.5) mmol/L Crossmatch 03/04/17 03/04/17 03/04/17 Range/Units 18:07 19:28 19:28 RBC (3.80-5.40) m/uL Hgb (11.4-16.0) gm/dL Hct (34.0-46.0) % MCV (80.0-100.0) fL MCH (25.0-35.0) pg RDW (11.5-15.5) % Plt Count (150-450) k/uL Lymphocytes # (1.0-4.8) k/uL PT (9.0-12.0) sec INR (<1.2) APTT (22.0-30.0) sec ABG pH 7.27 L (7.35-7.45) ABG pCO2 34 L (35-45) mmHg ABG pO2 (83-108) mmHg ABG HCO3 15 L (21-25) mmol/L ABG Total CO2 16 L (19-24) mmol/L ABG O2 Saturation (94-97) % ABG Hematocrit 30 L (34.0-46.0) % ABG Sodium (135-146) mmol/L ABG Potassium (3.4-4.5) mmol/L Sodium (137-145) mmol/L Potassium (3.5-5.1) mmol/L Chloride (98-107) mmol/L BUN (7-17) mg/dL Creatinine (0.52-1.04) mg/dL Glucose (74-99) mg/dL POC Glucose (mg/dL) 278 H 275 H (75-99) mg/dL Calcium (8.4-10.2) mg/dL Ionized Calcium Luz Elena (4.5-5.3) mg/dL Phosphorus (2.5-4.5) mg/dL Magnesium (1.6-2.3) mg/dL Total Bilirubin (0.2-1.3) mg/dL AST (14-36) U/L ALT (9-52) U/L Alkaline Phosphatase (38-126) U/L Total Protein (6.3-8.2) g/dL Albumin (3.5-5.0) g/dL Arterial Blood Potassium (3.4-4.5) mmol/L Crossmatch 03/04/17 03/04/17 03/04/17 Range/Units 19:56 19:59 20:33 RBC (3.80-5.40) m/uL Hgb (11.4-16.0) gm/dL Hct (34.0-46.0) % MCV (80.0-100.0) fL MCH (25.0-35.0) pg RDW (11.5-15.5) % Plt Count (150-450) k/uL Lymphocytes # (1.0-4.8) k/uL PT (9.0-12.0) sec INR (<1.2) APTT (22.0-30.0) sec ABG pH 7.27 L (7.35-7.45) ABG pCO2 (35-45) mmHg ABG pO2 70 L (83-108) mmHg ABG HCO3 20 L (21-25) mmol/L ABG Total CO2 (19-24) mmol/L ABG O2 Saturation 91.1 L (94-97) % ABG Hematocrit 28 L (34.0-46.0) % ABG Sodium 148 H (135-146) mmol/L ABG Potassium 3.2 L (3.4-4.5) mmol/L Sodium (137-145) mmol/L Potassium (3.5-5.1) mmol/L Chloride (98-107) mmol/L BUN (7-17) mg/dL Creatinine (0.52-1.04) mg/dL Glucose (74-99) mg/dL POC Glucose (mg/dL) 258 H 216 H (75-99) mg/dL Calcium (8.4-10.2) mg/dL Ionized Calcium Luz Elena (4.5-5.3) mg/dL Phosphorus (2.5-4.5) mg/dL Magnesium (1.6-2.3) mg/dL Total Bilirubin (0.2-1.3) mg/dL AST (14-36) U/L ALT (9-52) U/L Alkaline Phosphatase (38-126) U/L Total Protein (6.3-8.2) g/dL Albumin (3.5-5.0) g/dL Arterial Blood Potassium 3.2 L (3.4-4.5) mmol/L Crossmatch 03/04/17 03/04/17 03/04/17 Range/Units 20:34 21:55 22:10 RBC 3.38 L (3.80-5.40) m/uL Hgb 8.2 L (11.4-16.0) gm/dL Hct 25.0 L (34.0-46.0) % MCV 74.0 L (80.0-100.0) fL MCH 24.1 L (25.0-35.0) pg RDW 22.4 H (11.5-15.5) % Plt Count 109 L (150-450) k/uL Lymphocytes # (1.0-4.8) k/uL PT (9.0-12.0) sec INR (<1.2) APTT (22.0-30.0) sec ABG pH (7.35-7.45) ABG pCO2 (35-45) mmHg ABG pO2 120 H (83-108) mmHg ABG HCO3 (21-25) mmol/L ABG Total CO2 (19-24) mmol/L ABG O2 Saturation 98.7 H (94-97) % ABG Hematocrit 24 L (34.0-46.0) % ABG Sodium 148 H (135-146) mmol/L ABG Potassium (3.4-4.5) mmol/L Sodium (137-145) mmol/L Potassium (3.5-5.1) mmol/L Chloride (98-107) mmol/L BUN (7-17) mg/dL Creatinine (0.52-1.04) mg/dL Glucose (74-99) mg/dL POC Glucose (mg/dL) 155 H (75-99) mg/dL Calcium (8.4-10.2) mg/dL Ionized Calcium Luz Elena (4.5-5.3) mg/dL Phosphorus (2.5-4.5) mg/dL Magnesium (1.6-2.3) mg/dL Total Bilirubin (0.2-1.3) mg/dL AST (14-36) U/L ALT (9-52) U/L Alkaline Phosphatase (38-126) U/L Total Protein (6.3-8.2) g/dL Albumin (3.5-5.0) g/dL Arterial Blood Potassium (3.4-4.5) mmol/L Crossmatch 03/04/17 03/04/17 03/04/17 Range/Units 22:10 22:10 23:15 RBC (3.80-5.40) m/uL Hgb (11.4-16.0) gm/dL Hct (34.0-46.0) % MCV (80.0-100.0) fL MCH (25.0-35.0) pg RDW (11.5-15.5) % Plt Count (150-450) k/uL Lymphocytes # (1.0-4.8) k/uL PT 14.8 H (9.0-12.0) sec INR 1.5 H (<1.2) APTT 32.3 H (22.0-30.0) sec ABG pH (7.35-7.45) ABG pCO2 (35-45) mmHg ABG pO2 (83-108) mmHg ABG HCO3 (21-25) mmol/L ABG Total CO2 (19-24) mmol/L ABG O2 Saturation (94-97) % ABG Hematocrit (34.0-46.0) % ABG Sodium (135-146) mmol/L ABG Potassium (3.4-4.5) mmol/L Sodium (137-145) mmol/L Potassium 3.3 L (3.5-5.1) mmol/L Chloride 108 H (98-107) mmol/L BUN (7-17) mg/dL Creatinine (0.52-1.04) mg/dL Glucose 148 H (74-99) mg/dL POC Glucose (mg/dL) 160 H (75-99) mg/dL Calcium 6.5 L* (8.4-10.2) mg/dL Ionized Calcium Luz Elena 4.0 L (4.5-5.3) mg/dL Phosphorus 2.2 L (2.5-4.5) mg/dL Magnesium (1.6-2.3) mg/dL Total Bilirubin (0.2-1.3) mg/dL AST (14-36) U/L ALT (9-52) U/L Alkaline Phosphatase (38-126) U/L Total Protein (6.3-8.2) g/dL Albumin (3.5-5.0) g/dL Arterial Blood Potassium (3.4-4.5) mmol/L Crossmatch 03/04/17 03/05/17 03/05/17 Range/Units 23:54 00:47 01:06 RBC 3.65 L (3.80-5.40) m/uL Hgb 8.6 L (11.4-16.0) gm/dL Hct 26.5 L (34.0-46.0) % MCV 72.6 L (80.0-100.0) fL MCH 23.6 L (25.0-35.0) pg RDW 21.4 H (11.5-15.5) % Plt Count 129 L (150-450) k/uL Lymphocytes # (1.0-4.8) k/uL PT (9.0-12.0) sec INR (<1.2) APTT (22.0-30.0) sec ABG pH (7.35-7.45) ABG pCO2 (35-45) mmHg ABG pO2 (83-108) mmHg ABG HCO3 (21-25) mmol/L ABG Total CO2 (19-24) mmol/L ABG O2 Saturation (94-97) % ABG Hematocrit (34.0-46.0) % ABG Sodium (135-146) mmol/L ABG Potassium (3.4-4.5) mmol/L Sodium (137-145) mmol/L Potassium (3.5-5.1) mmol/L Chloride (98-107) mmol/L BUN (7-17) mg/dL Creatinine (0.52-1.04) mg/dL Glucose (74-99) mg/dL POC Glucose (mg/dL) 152 H 131 H (75-99) mg/dL Calcium (8.4-10.2) mg/dL Ionized Calcium Luz Elena (4.5-5.3) mg/dL Phosphorus (2.5-4.5) mg/dL Magnesium (1.6-2.3) mg/dL Total Bilirubin (0.2-1.3) mg/dL AST (14-36) U/L ALT (9-52) U/L Alkaline Phosphatase (38-126) U/L Total Protein (6.3-8.2) g/dL Albumin (3.5-5.0) g/dL Arterial Blood Potassium (3.4-4.5) mmol/L Crossmatch 03/05/17 03/05/17 03/05/17 Range/Units 02:06 03:13 04:00 RBC 3.49 L (3.80-5.40) m/uL Hgb 8.2 L (11.4-16.0) gm/dL Hct 25.5 L (34.0-46.0) % MCV 73.0 L (80.0-100.0) fL MCH 23.5 L (25.0-35.0) pg RDW 22.0 H (11.5-15.5) % Plt Count 114 L (150-450) k/uL Lymphocytes # (1.0-4.8) k/uL PT (9.0-12.0) sec INR (<1.2) APTT (22.0-30.0) sec ABG pH (7.35-7.45) ABG pCO2 (35-45) mmHg ABG pO2 (83-108) mmHg ABG HCO3 (21-25) mmol/L ABG Total CO2 (19-24) mmol/L ABG O2 Saturation (94-97) % ABG Hematocrit (34.0-46.0) % ABG Sodium (135-146) mmol/L ABG Potassium (3.4-4.5) mmol/L Sodium (137-145) mmol/L Potassium (3.5-5.1) mmol/L Chloride (98-107) mmol/L BUN (7-17) mg/dL Creatinine (0.52-1.04) mg/dL Glucose (74-99) mg/dL POC Glucose (mg/dL) 120 H 106 H (75-99) mg/dL Calcium (8.4-10.2) mg/dL Ionized Calcium Luz Elena (4.5-5.3) mg/dL Phosphorus (2.5-4.5) mg/dL Magnesium (1.6-2.3) mg/dL Total Bilirubin (0.2-1.3) mg/dL AST (14-36) U/L ALT (9-52) U/L Alkaline Phosphatase (38-126) U/L Total Protein (6.3-8.2) g/dL Albumin (3.5-5.0) g/dL Arterial Blood Potassium (3.4-4.5) mmol/L Crossmatch 03/05/17 03/05/17 03/05/17 Range/Units 04:00 04:00 04:05 RBC (3.80-5.40) m/uL Hgb (11.4-16.0) gm/dL Hct (34.0-46.0) % MCV (80.0-100.0) fL MCH (25.0-35.0) pg RDW (11.5-15.5) % Plt Count (150-450) k/uL Lymphocytes # (1.0-4.8) k/uL PT 13.8 H (9.0-12.0) sec INR 1.4 H (<1.2) APTT (22.0-30.0) sec ABG pH (7.35-7.45) ABG pCO2 (35-45) mmHg ABG pO2 (83-108) mmHg ABG HCO3 (21-25) mmol/L ABG Total CO2 (19-24) mmol/L ABG O2 Saturation (94-97) % ABG Hematocrit (34.0-46.0) % ABG Sodium (135-146) mmol/L ABG Potassium (3.4-4.5) mmol/L Sodium 146 H (137-145) mmol/L Potassium (3.5-5.1) mmol/L Chloride 109 H (98-107) mmol/L BUN 20 H (7-17) mg/dL Creatinine 1.10 H (0.52-1.04) mg/dL Glucose 103 H (74-99) mg/dL POC Glucose (mg/dL) 108 H (75-99) mg/dL Calcium 7.2 L (8.4-10.2) mg/dL Ionized Calcium Luz Elena 4.1 L (4.5-5.3) mg/dL Phosphorus (2.5-4.5) mg/dL Magnesium (1.6-2.3) mg/dL Total Bilirubin 1.5 H (0.2-1.3) mg/dL AST 143 H (14-36) U/L ALT 67 H (9-52) U/L Alkaline Phosphatase 26 L (38-126) U/L Total Protein 4.7 L (6.3-8.2) g/dL Albumin 3.2 L (3.5-5.0) g/dL Arterial Blood Potassium (3.4-4.5) mmol/L Crossmatch 03/05/17 03/05/17 03/05/17 Range/Units 05:16 05:28 06:18 RBC (3.80-5.40) m/uL Hgb (11.4-16.0) gm/dL Hct (34.0-46.0) % MCV (80.0-100.0) fL MCH (25.0-35.0) pg RDW (11.5-15.5) % Plt Count (150-450) k/uL Lymphocytes # (1.0-4.8) k/uL PT (9.0-12.0) sec INR (<1.2) APTT (22.0-30.0) sec ABG pH (7.35-7.45) ABG pCO2 (35-45) mmHg ABG pO2 56 L (83-108) mmHg ABG HCO3 (21-25) mmol/L ABG Total CO2 26 H (19-24) mmol/L ABG O2 Saturation 88.0 L (94-97) % ABG Hematocrit (34.0-46.0) % ABG Sodium (135-146) mmol/L ABG Potassium (3.4-4.5) mmol/L Sodium (137-145) mmol/L Potassium (3.5-5.1) mmol/L Chloride (98-107) mmol/L BUN (7-17) mg/dL Creatinine (0.52-1.04) mg/dL Glucose (74-99) mg/dL POC Glucose (mg/dL) 129 H 138 H (75-99) mg/dL Calcium (8.4-10.2) mg/dL Ionized Calcium Luz Elena (4.5-5.3) mg/dL Phosphorus (2.5-4.5) mg/dL Magnesium (1.6-2.3) mg/dL Total Bilirubin (0.2-1.3) mg/dL AST (14-36) U/L ALT (9-52) U/L Alkaline Phosphatase (38-126) U/L Total Protein (6.3-8.2) g/dL Albumin (3.5-5.0) g/dL Arterial Blood Potassium (3.4-4.5) mmol/L Crossmatch 03/05/17 03/05/17 03/05/17 Range/Units 07:20 08:12 08:30 RBC (3.80-5.40) m/uL Hgb (11.4-16.0) gm/dL Hct (34.0-46.0) % MCV (80.0-100.0) fL MCH (25.0-35.0) pg RDW (11.5-15.5) % Plt Count (150-450) k/uL Lymphocytes # (1.0-4.8) k/uL PT (9.0-12.0) sec INR (<1.2) APTT (22.0-30.0) sec ABG pH (7.35-7.45) ABG pCO2 (35-45) mmHg ABG pO2 56 L (83-108) mmHg ABG HCO3 (21-25) mmol/L ABG Total CO2 25 H (19-24) mmol/L ABG O2 Saturation 88.7 L (94-97) % ABG Hematocrit (34.0-46.0) % ABG Sodium (135-146) mmol/L ABG Potassium (3.4-4.5) mmol/L Sodium (137-145) mmol/L Potassium (3.5-5.1) mmol/L Chloride (98-107) mmol/L BUN (7-17) mg/dL Creatinine (0.52-1.04) mg/dL Glucose (74-99) mg/dL POC Glucose (mg/dL) 152 H 136 H (75-99) mg/dL Calcium (8.4-10.2) mg/dL Ionized Calcium Luz Elena (4.5-5.3) mg/dL Phosphorus (2.5-4.5) mg/dL Magnesium (1.6-2.3) mg/dL Total Bilirubin (0.2-1.3) mg/dL AST (14-36) U/L ALT (9-52) U/L Alkaline Phosphatase (38-126) U/L Total Protein (6.3-8.2) g/dL Albumin (3.5-5.0) g/dL Arterial Blood Potassium (3.4-4.5) mmol/L Crossmatch 03/05/17 03/05/17 03/05/17 Range/Units 09:08 10:11 11:19 RBC (3.80-5.40) m/uL Hgb (11.4-16.0) gm/dL Hct (34.0-46.0) % MCV (80.0-100.0) fL MCH (25.0-35.0) pg RDW (11.5-15.5) % Plt Count (150-450) k/uL Lymphocytes # (1.0-4.8) k/uL PT (9.0-12.0) sec INR (<1.2) APTT (22.0-30.0) sec ABG pH (7.35-7.45) ABG pCO2 (35-45) mmHg ABG pO2 (83-108) mmHg ABG HCO3 (21-25) mmol/L ABG Total CO2 (19-24) mmol/L ABG O2 Saturation (94-97) % ABG Hematocrit (34.0-46.0) % ABG Sodium (135-146) mmol/L ABG Potassium (3.4-4.5) mmol/L Sodium (137-145) mmol/L Potassium (3.5-5.1) mmol/L Chloride (98-107) mmol/L BUN (7-17) mg/dL Creatinine (0.52-1.04) mg/dL Glucose (74-99) mg/dL POC Glucose (mg/dL) 142 H 122 H 102 H (75-99) mg/dL Calcium (8.4-10.2) mg/dL Ionized Calcium Luz Elena (4.5-5.3) mg/dL Phosphorus (2.5-4.5) mg/dL Magnesium (1.6-2.3) mg/dL Total Bilirubin (0.2-1.3) mg/dL AST (14-36) U/L ALT (9-52) U/L Alkaline Phosphatase (38-126) U/L Total Protein (6.3-8.2) g/dL Albumin (3.5-5.0) g/dL Arterial Blood Potassium (3.4-4.5) mmol/L Crossmatch 03/05/17 03/05/17 03/05/17 Range/Units 11:45 12:15 14:10 RBC (3.80-5.40) m/uL Hgb (11.4-16.0) gm/dL Hct (34.0-46.0) % MCV (80.0-100.0) fL MCH (25.0-35.0) pg RDW (11.5-15.5) % Plt Count (150-450) k/uL Lymphocytes # (1.0-4.8) k/uL PT (9.0-12.0) sec INR (<1.2) APTT (22.0-30.0) sec ABG pH (7.35-7.45) ABG pCO2 (35-45) mmHg ABG pO2 (83-108) mmHg ABG HCO3 (21-25) mmol/L ABG Total CO2 (19-24) mmol/L ABG O2 Saturation (94-97) % ABG Hematocrit (34.0-46.0) % ABG Sodium (135-146) mmol/L ABG Potassium (3.4-4.5) mmol/L Sodium (137-145) mmol/L Potassium (3.5-5.1) mmol/L Chloride (98-107) mmol/L BUN (7-17) mg/dL Creatinine (0.52-1.04) mg/dL Glucose (74-99) mg/dL POC Glucose (mg/dL) 103 H 146 H (75-99) mg/dL Calcium (8.4-10.2) mg/dL Ionized Calcium Luz Elena 4.2 L (4.5-5.3) mg/dL Phosphorus (2.5-4.5) mg/dL Magnesium 2.4 H (1.6-2.3) mg/dL Total Bilirubin (0.2-1.3) mg/dL AST (14-36) U/L ALT (9-52) U/L Alkaline Phosphatase (38-126) U/L Total Protein (6.3-8.2) g/dL Albumin (3.5-5.0) g/dL Arterial Blood Potassium (3.4-4.5) mmol/L Crossmatch 03/05/17 03/05/17 03/05/17 Range/Units 15:18 16:05 17:24 RBC (3.80-5.40) m/uL Hgb (11.4-16.0) gm/dL Hct (34.0-46.0) % MCV (80.0-100.0) fL MCH (25.0-35.0) pg RDW (11.5-15.5) % Plt Count (150-450) k/uL Lymphocytes # (1.0-4.8) k/uL PT (9.0-12.0) sec INR (<1.2) APTT (22.0-30.0) sec ABG pH (7.35-7.45) ABG pCO2 (35-45) mmHg ABG pO2 (83-108) mmHg ABG HCO3 (21-25) mmol/L ABG Total CO2 (19-24) mmol/L ABG O2 Saturation (94-97) % ABG Hematocrit (34.0-46.0) % ABG Sodium (135-146) mmol/L ABG Potassium (3.4-4.5) mmol/L Sodium (137-145) mmol/L Potassium (3.5-5.1) mmol/L Chloride (98-107) mmol/L BUN (7-17) mg/dL Creatinine (0.52-1.04) mg/dL Glucose (74-99) mg/dL POC Glucose (mg/dL) 143 H 130 H 117 H (75-99) mg/dL Calcium (8.4-10.2) mg/dL Ionized Calcium Luz Elena (4.5-5.3) mg/dL Phosphorus (2.5-4.5) mg/dL Magnesium (1.6-2.3) mg/dL Total Bilirubin (0.2-1.3) mg/dL AST (14-36) U/L ALT (9-52) U/L Alkaline Phosphatase (38-126) U/L Total Protein (6.3-8.2) g/dL Albumin (3.5-5.0) g/dL Arterial Blood Potassium (3.4-4.5) mmol/L Crossmatch Assessment and Plan (1) Status post aortic valve replacement Status: Acute (2) Bicuspid aortic valve Status: Acute (3) Hypertension Status: Acute Plan: This patient is status post aortic valve replacement. Patient needed to go back to [facility] last night for intestinal bleeding. Patient is still intubated and sedated. Requiring some ventilatory support with PEEP. Chest x-ray shows little ectatic changes and pleural effusion on the right side. Kidney function remains stable. We'll continue current medical therapy. Patient is currently in atrial pacing mode. Further recommendations depend upon the clinical course.
[2017-03-05 19:09] LABS: Glucose,Whole Blood 114 mg/dL (75-99)
[2017-03-05 20:04] LABS: Glucose,Whole Blood 123 mg/dL (75-99)
[2017-03-05 21:04] LABS: Glucose,Whole Blood 133 mg/dL (75-99)
[2017-03-05] MEDS: SENNOSIDES-DOCUSATE SODIUM 1 EACH TAB PO SCH (21:05)
[2017-03-05 23:10] LABS: Glucose,Whole Blood 150 mg/dL (75-99)
[2017-03-05 23:58] LABS: Glucose,Whole Blood 142 mg/dL (75-99)
[2017-03-06] MEDS: IPRATROPIUM-ALBUTEROL 3 ML NEB INHALATION SCH ×7 (00:03→23:03)
[2017-03-06] MEDS: SODIUM CHLORIDE 0.9% 1,000 ML IV SCH ×2 (00:08→19:40)
[2017-03-06 01:18] LABS: Glucose,Whole Blood 133 mg/dL (75-99)
[2017-03-06 02:50] LABS: Glucose,Whole Blood 124 mg/dL (75-99)
[2017-03-06 04:19] LABS: Glucose,Whole Blood 106 mg/dL (75-99)
[2017-03-06 04:28] LABS: Anisocytosis Moderate; Basophils % (A) 0 %; CH 24.5; CHCM 33.4; Eosinophils % (A) 0 %; HCT 23.9 % (34.0-46.0); HDW 3.98; HGB 7.8 gm/dL (11.4-16.0); Hypochromasia Slight; Luc # (Auto) 0.15; Luc % (Auto) 2; Lymphocytes # (A) 1.2 k/uL (1.0-4.8); Lymphocytes % (A) 13 %; MCH 23.9 pg (25.0-35.0); MCHC 32.7 g/dL (31.0-37.0); MCV 73.2 fL (80.0-100.0); Mean Platelet Volume 9.9; Microcytosis Marked; Monocytes # (A) 0.7 k/uL (0-1.0); Monocytes % (A) 8 %; Neutrophils # (A) 7.1 k/uL (1.3-7.7); Neutrophils % (A) 77 %; Poikilocytosis Slight; RBC 3.27 m/uL (3.80-5.40); WBC 9.2 k/uL (3.8-10.6); WBC (Perox) 9.38
[2017-03-06 04:42] LABS: Ionized Calcium 4.4 mg/dL (4.5-5.3)
[2017-03-06] MEDS: PROPOFOL 1,000 MG/100 ML VIAL IV SCH ×2 (04:44→10:36)
[2017-03-06 04:48] LABS: INR 1.2 (<1.2); Prothrombin Time 12.1 sec (9.0-12.0)
[2017-03-06 04:53] LABS: Calcium 7.5 mg/dL (8.4-10.2); Magnesium 2.4 mg/dL (1.6-2.3); Phosphorous 3.5 mg/dL (2.5-4.5); Potassium 3.9 mmol/L (3.5-5.1); Total Bilirubin 0.7 mg/dL (0.2-1.3); Total Protein 4.5 g/dL (6.3-8.2)
[2017-03-06 05:28] LABS: ABG Base Excess -0.8 mmol/L; ABG HCO3 23 mmol/L (21-25); ABG PCO2 34 mmHg (35-45); ABG PH 7.44 (7.35-7.45); ABG PO2 61 mmHg (83-108); ABG TCO2 24 mmol/L (19-24)
[2017-03-06 05:30] LABS: ABG Base Excess -1.4 mmol/L; ABG HCO3 23 mmol/L (21-25); ABG PCO2 37 mmHg (35-45); ABG PH 7.41 (7.35-7.45); ABG PO2 69 mmHg (83-108); ABG TCO2 24 mmol/L (19-24)
[2017-03-06] MEDS ORDERED: FUROSEMIDE 10 MG/ML 4 ML VIAL IV STA ×2 (05:43→19:23)
[2017-03-06] MEDS: HEPARIN SODIUM,PORCINE 5,000 UNIT/ML 1 ML VIAL SQ SCH ×3 (05:44→20:10)
[2017-03-06] MEDS: CLEVIDIPINE BUTYRATE 25 MG in EMPTY BAG 1 BAG IV SCH (05:52)
[2017-03-06 06:02] LABS: Glucose,Whole Blood 129 mg/dL (75-99)
[2017-03-06] MEDS: POTASSIUM CHLORIDE 10 MEQ in WATER FOR INJECTION 1 100ML.BAG IVPB SCH ×2 (06:28→08:21)
--- NOTE | 2017-03-06 06:54 | XR ---
EXAMINATION TYPE: XR chest 1V portable DATE OF EXAM: 03/06/2017 HISTORY: Tube placement. REFERENCE: Previous study dated 03/05/2017. FINDINGS: The patient has been intubated. ET tube is in satisfactory position 4.4 cm above the tavia . An NG tube is in place and crosses the diaphragm. Its tip is not visualized. A [place] catheter i s in place via a right internal jugular approach. Its tip is in the right main pulmonary artery. A le ft pleural drain remains in place. There has been a midline sternotomy. The heart is enlarged. There is bibasilar airspace disease. There are bilateral effusions, greater on the right than the left. There is vascular congestion. There is improved interstitial change. IMPRESSION: SLIGHT IMPROVEMENT IN THE PATIENT'S CONGESTIVE HEART FAILURE.
[2017-03-06] MEDS: INSULIN REGULAR 100 UNIT in SODIUM CHLORIDE 0.9% 100 ML IV SCH (07:06)
[2017-03-06 07:07] LABS: Glucose,Whole Blood 143 mg/dL (75-99)
[2017-03-06 08:15] LABS: Glucose,Whole Blood 138 mg/dL (75-99)
[2017-03-06] MEDS: MILRINONE-D5W PMX 20 MG in DEXTROSE/WATER 1 100ML.BAG IV SCH ×2 (08:18→11:57)
--- NOTE | 2017-03-06 08:37 | P.PN ---
Subjective Principal diagnosis: Status post aVR This is a pleasant 76-year-old female patient who sees Dr. STELLA Lazaro as an outpatient who was diagnosed recently with symptomatic severe aortic stenosis secondary to bicuspid aortic valve. The patient underwent aVR using a bioprosthetic aortic valve. Subsequently she developed bleeding and she was taken to the OR again. Currently the patient is intubated and she is not ready to wean yet. Hemodynamically she is stable. She is on 3 drips consistent off Primacor, insulin, and propofol. She still requires AV pacing and once the pacer turned off the underlying rhythm is asystole. Objective - Vital Signs Vital signs: Vital Signs Temp 97.0 F L 03/04/17 18:00 Pulse 80 03/06/17 07:52 Resp 24 03/06/17 07:00 BP 68/40 03/04/17 16:00 Pulse Ox 94 L 03/06/17 07:00 Intake & Output 03/05/17 03/06/17 03/06/17 18:59 06:59 18:59 Intake Total 2121.903 1067.292 357.021 Output Total 953 470 74 Balance 1168.903 597.292 283.021 Weight 87.3 kg Intake: IV 1200 600 200 ACETAMINOPHEN IV (For NPO 100 ) 1,000 mg In Empty Bag 1 bag @ 400 mls/hr IVPB Q6HR [facility] Rx#:[id number] Calcium Gluconate 2,000 200 mg In Sodium Chloride 0.9 % 100 ml @ 100 mls/hr IVPB ONCE PRN Rx#: [id number] Lactated Ringers 1,000 ml 600 250 @ 50 mls/hr IV .Q20H [facility] Rx#:[id number] Magnesium Sulfate-D5w Pmx 200 1 gm In Dextrose/Water 1 100ml.bag @ 100 mls/hr IVPB Q1H [facility] Rx#: [id number] Potassium Chloride 10 meq 100 In Water For Injection 1 100ml.bag @ 100 mls/hr IVPB Q1H [facility] Rx#: [id number] Sodium Chloride 0.9% 1, 350 100 000 ml @ 50 mls/hr IV . Q20H [facility] Rx#:[id number] ceFAZolin 2 gm In Sodium 100 Chloride 0.9% 100 ml @ 100 mls/hr IVPB Q8HR [facility] Rx#:[id number] Intake, IV Titration 611.903 467.292 157.021 Amount Amiodarone 450 mg In 148.829 Dextrose 5% in Water 250 ml @ 1 MG/MIN 33.33 mls/ hr IV .Q7H31M [facility] Rx#: [id number] Clevidipine Butyrate 25 0 46.816 5.700 mg In Empty Bag 1 bag @ 1 MG/HR 2 mls/hr IV .Q24H [facility] Rx#:[id number] Insulin Regular 100 unit 57.485 32.925 5.297 In Sodium Chloride 0.9% 100 ml @ Per Protocol IV .Q0M [facility] Rx#:[id number] Milrinone-D5w Pmx 20 mg 83.61 89.928 In Dextrose/Water 1 100ml .bag @ 0.2 MCG/KG/MIN 4. 51 mls/hr IV .[id number] [facility] Rx#:[id number] Norepinephrin 4 mg-0.9% 67.001 84.063 Ns Pmx 4 mg In 250 ml @ Titrate IV .Q0M [facility] Rx#: [id number] Potassium Chloride 10 meq 200 In Water For Injection 1 100ml.bag @ 100 mls/hr IVPB Q1H [facility] Rx#: [id number] Potassium Chloride 10 meq 100 In Water For Injection 1 100ml.bag @ 100 mls/hr IVPB Q1H [facility] Rx#: [id number] Propofol 1,000 mg In 100 38.588 219.878 56.096 ml @ Titrate IV .Q0M [facility] Rx#:[id number] Blood Product 310 Rc As-3 Unit 310 [id number] Output: Chest Tube Drainage 283 176 49 Left Lateral Chest 53 32 9 Mediastinal x 2 230 144 40 Urine 670 294 25 Other: Voiding Method Indwelling Catheter Indwelling Catheter ABP, PAP, CO, CI - Last Documented Arterial Blood Pressure 109/42 Pulmonary Artery Pressure 36/23 Cardiac Output 4.6 Cardiac Index 2.4 - Constitutional General appearance: Present: no acute distress - Respiratory Respiratory: bilateral: CTA - Cardiovascular Rhythm: regular - Labs CBC & Chem 7: 03/06/17 04:20 03/06/17 04:20 Labs: Abnormal Lab Results - Last 24 Hours (Table) 02/23/17 03/04/17 03/04/17 Range/Units 09:08 09:39 10:42 RBC (3.80-5.40) m/uL Hgb (11.4-16.0) gm/dL Hct (34.0-46.0) % MCV (80.0-100.0) fL MCH (25.0-35.0) pg RDW (11.5-15.5) % Plt Count (150-450) k/uL PT (9.0-12.0) sec INR (<1.2) ABG pH (7.35-7.45) ABG pCO2 (35-45) mmHg ABG pO2 239 H 254 H (83-108) mmHg ABG HCO3 (21-25) mmol/L ABG Total CO2 25 H (19-24) mmol/L ABG O2 Saturation 99.8 H 99.8 H (94-97) % ABG Hematocrit 31 L (34.0-46.0) % ABG Sodium (135-146) mmol/L ABG Potassium (3.4-4.5) mmol/L Chloride (98-107) mmol/L BUN (7-17) mg/dL Creatinine (0.52-1.04) mg/dL POC Glucose (mg/dL) (75-99) mg/dL Calcium (8.4-10.2) mg/dL Ionized Calcium Luz Elena (4.5-5.3) mg/dL Magnesium (1.6-2.3) mg/dL AST (14-36) U/L ALT (9-52) U/L Alkaline Phosphatase (38-126) U/L Total Protein (6.3-8.2) g/dL Albumin (3.5-5.0) g/dL Arterial Blood Potassium (3.4-4.5) mmol/L Crossmatch See Detail 03/04/17 03/04/17 03/04/17 Range/Units 11:09 11:41 12:39 RBC (3.80-5.40) m/uL Hgb (11.4-16.0) gm/dL Hct (34.0-46.0) % MCV (80.0-100.0) fL MCH (25.0-35.0) pg RDW (11.5-15.5) % Plt Count (150-450) k/uL PT (9.0-12.0) sec INR (<1.2) ABG pH 7.34 L 7.30 L 7.31 L (7.35-7.45) ABG pCO2 49 H (35-45) mmHg ABG pO2 296 H 318 H 179 H (83-108) mmHg ABG HCO3 20 L (21-25) mmol/L ABG Total CO2 25 H (19-24) mmol/L ABG O2 Saturation 99.9 H 99.9 H 99.5 H (94-97) % ABG Hematocrit 26 L 27 L 28 L (34.0-46.0) % ABG Sodium (135-146) mmol/L ABG Potassium 3.1 L (3.4-4.5) mmol/L Chloride (98-107) mmol/L BUN (7-17) mg/dL Creatinine (0.52-1.04) mg/dL POC Glucose (mg/dL) (75-99) mg/dL Calcium (8.4-10.2) mg/dL Ionized Calcium Luz Elena (4.5-5.3) mg/dL Magnesium (1.6-2.3) mg/dL AST (14-36) U/L ALT (9-52) U/L Alkaline Phosphatase (38-126) U/L Total Protein (6.3-8.2) g/dL Albumin (3.5-5.0) g/dL Arterial Blood Potassium 3.1 L (3.4-4.5) mmol/L Crossmatch 03/04/17 03/04/17 03/04/17 Range/Units 19:28 19:56 20:34 RBC (3.80-5.40) m/uL Hgb (11.4-16.0) gm/dL Hct (34.0-46.0) % MCV (80.0-100.0) fL MCH (25.0-35.0) pg RDW (11.5-15.5) % Plt Count (150-450) k/uL PT (9.0-12.0) sec INR (<1.2) ABG pH 7.27 L 7.27 L (7.35-7.45) ABG pCO2 34 L (35-45) mmHg ABG pO2 70 L 120 H (83-108) mmHg ABG HCO3 15 L 20 L (21-25) mmol/L ABG Total CO2 16 L (19-24) mmol/L ABG O2 Saturation 91.1 L 98.7 H (94-97) % ABG Hematocrit 30 L 28 L 24 L (34.0-46.0) % ABG Sodium 148 H 148 H (135-146) mmol/L ABG Potassium 3.2 L (3.4-4.5) mmol/L Chloride (98-107) mmol/L BUN (7-17) mg/dL Creatinine (0.52-1.04) mg/dL POC Glucose (mg/dL) (75-99) mg/dL Calcium (8.4-10.2) mg/dL Ionized Calcium Luz Elena (4.5-5.3) mg/dL Magnesium (1.6-2.3) mg/dL AST (14-36) U/L ALT (9-52) U/L Alkaline Phosphatase (38-126) U/L Total Protein (6.3-8.2) g/dL Albumin (3.5-5.0) g/dL Arterial Blood Potassium 3.2 L (3.4-4.5) mmol/L Crossmatch 03/05/17 03/05/17 03/05/17 Range/Units 08:30 09:08 10:11 RBC (3.80-5.40) m/uL Hgb (11.4-16.0) gm/dL Hct (34.0-46.0) % MCV (80.0-100.0) fL MCH (25.0-35.0) pg RDW (11.5-15.5) % Plt Count (150-450) k/uL PT (9.0-12.0) sec INR (<1.2) ABG pH (7.35-7.45) ABG pCO2 (35-45) mmHg ABG pO2 56 L (83-108) mmHg ABG HCO3 (21-25) mmol/L ABG Total CO2 25 H (19-24) mmol/L ABG O2 Saturation 88.7 L (94-97) % ABG Hematocrit (34.0-46.0) % ABG Sodium (135-146) mmol/L ABG Potassium (3.4-4.5) mmol/L Chloride (98-107) mmol/L BUN (7-17) mg/dL Creatinine (0.52-1.04) mg/dL POC Glucose (mg/dL) 142 H 122 H (75-99) mg/dL Calcium (8.4-10.2) mg/dL Ionized Calcium Luz Elena (4.5-5.3) mg/dL Magnesium (1.6-2.3) mg/dL AST (14-36) U/L ALT (9-52) U/L Alkaline Phosphatase (38-126) U/L Total Protein (6.3-8.2) g/dL Albumin (3.5-5.0) g/dL Arterial Blood Potassium (3.4-4.5) mmol/L Crossmatch 03/05/17 03/05/17 03/05/17 Range/Units 11:19 11:45 12:15 RBC (3.80-5.40) m/uL Hgb (11.4-16.0) gm/dL Hct (34.0-46.0) % MCV (80.0-100.0) fL MCH (25.0-35.0) pg RDW (11.5-15.5) % Plt Count (150-450) k/uL PT (9.0-12.0) sec INR (<1.2) ABG pH (7.35-7.45) ABG pCO2 (35-45) mmHg ABG pO2 (83-108) mmHg ABG HCO3 (21-25) mmol/L ABG Total CO2 (19-24) mmol/L ABG O2 Saturation (94-97) % ABG Hematocrit (34.0-46.0) % ABG Sodium (135-146) mmol/L ABG Potassium (3.4-4.5) mmol/L Chloride (98-107) mmol/L BUN (7-17) mg/dL Creatinine (0.52-1.04) mg/dL POC Glucose (mg/dL) 102 H 103 H (75-99) mg/dL Calcium (8.4-10.2) mg/dL Ionized Calcium Luz Elena 4.2 L (4.5-5.3) mg/dL Magnesium 2.4 H (1.6-2.3) mg/dL AST (14-36) U/L ALT (9-52) U/L Alkaline Phosphatase (38-126) U/L Total Protein (6.3-8.2) g/dL Albumin (3.5-5.0) g/dL Arterial Blood Potassium (3.4-4.5) mmol/L Crossmatch 03/05/17 03/05/17 03/05/17 Range/Units 14:10 15:18 16:05 RBC (3.80-5.40) m/uL Hgb (11.4-16.0) gm/dL Hct (34.0-46.0) % MCV (80.0-100.0) fL MCH (25.0-35.0) pg RDW (11.5-15.5) % Plt Count (150-450) k/uL PT (9.0-12.0) sec INR (<1.2) ABG pH (7.35-7.45) ABG pCO2 (35-45) mmHg ABG pO2 (83-108) mmHg ABG HCO3 (21-25) mmol/L ABG Total CO2 (19-24) mmol/L ABG O2 Saturation (94-97) % ABG Hematocrit (34.0-46.0) % ABG Sodium (135-146) mmol/L ABG Potassium (3.4-4.5) mmol/L Chloride (98-107) mmol/L BUN (7-17) mg/dL Creatinine (0.52-1.04) mg/dL POC Glucose (mg/dL) 146 H 143 H 130 H (75-99) mg/dL Calcium (8.4-10.2) mg/dL Ionized Calcium Luz Elena (4.5-5.3) mg/dL Magnesium (1.6-2.3) mg/dL AST (14-36) U/L ALT (9-52) U/L Alkaline Phosphatase (38-126) U/L Total Protein (6.3-8.2) g/dL Albumin (3.5-5.0) g/dL Arterial Blood Potassium (3.4-4.5) mmol/L Crossmatch 03/05/17 03/05/17 03/05/17 Range/Units 17:24 19:07 20:02 RBC (3.80-5.40) m/uL Hgb (11.4-16.0) gm/dL Hct (34.0-46.0) % MCV (80.0-100.0) fL MCH (25.0-35.0) pg RDW (11.5-15.5) % Plt Count (150-450) k/uL PT (9.0-12.0) sec INR (<1.2) ABG pH (7.35-7.45) ABG pCO2 (35-45) mmHg ABG pO2 (83-108) mmHg ABG HCO3 (21-25) mmol/L ABG Total CO2 (19-24) mmol/L ABG O2 Saturation (94-97) % ABG Hematocrit (34.0-46.0) % ABG Sodium (135-146) mmol/L ABG Potassium (3.4-4.5) mmol/L Chloride (98-107) mmol/L BUN (7-17) mg/dL Creatinine (0.52-1.04) mg/dL POC Glucose (mg/dL) 117 H 114 H 123 H (75-99) mg/dL Calcium (8.4-10.2) mg/dL Ionized Calcium Luz Elena (4.5-5.3) mg/dL Magnesium (1.6-2.3) mg/dL AST (14-36) U/L ALT (9-52) U/L Alkaline Phosphatase (38-126) U/L Total Protein (6.3-8.2) g/dL Albumin (3.5-5.0) g/dL Arterial Blood Potassium (3.4-4.5) mmol/L Crossmatch 03/05/17 03/05/17 03/05/17 Range/Units 21:02 23:08 23:55 RBC (3.80-5.40) m/uL Hgb (11.4-16.0) gm/dL Hct (34.0-46.0) % MCV (80.0-100.0) fL MCH (25.0-35.0) pg RDW (11.5-15.5) % Plt Count (150-450) k/uL PT (9.0-12.0) sec INR (<1.2) ABG pH (7.35-7.45) ABG pCO2 34 L (35-45) mmHg ABG pO2 61 L (83-108) mmHg ABG HCO3 (21-25) mmol/L ABG Total CO2 (19-24) mmol/L ABG O2 Saturation 92.0 L (94-97) % ABG Hematocrit (34.0-46.0) % ABG Sodium (135-146) mmol/L ABG Potassium (3.4-4.5) mmol/L Chloride (98-107) mmol/L BUN (7-17) mg/dL Creatinine (0.52-1.04) mg/dL POC Glucose (mg/dL) 133 H 150 H (75-99) mg/dL Calcium (8.4-10.2) mg/dL Ionized Calcium Luz Elena (4.5-5.3) mg/dL Magnesium (1.6-2.3) mg/dL AST (14-36) U/L ALT (9-52) U/L Alkaline Phosphatase (38-126) U/L Total Protein (6.3-8.2) g/dL Albumin (3.5-5.0) g/dL Arterial Blood Potassium (3.4-4.5) mmol/L Crossmatch 03/05/17 03/06/17 03/06/17 Range/Units 23:56 01:16 02:48 RBC (3.80-5.40) m/uL Hgb (11.4-16.0) gm/dL Hct (34.0-46.0) % MCV (80.0-100.0) fL MCH (25.0-35.0) pg RDW (11.5-15.5) % Plt Count (150-450) k/uL PT (9.0-12.0) sec INR (<1.2) ABG pH (7.35-7.45) ABG pCO2 (35-45) mmHg ABG pO2 (83-108) mmHg ABG HCO3 (21-25) mmol/L ABG Total CO2 (19-24) mmol/L ABG O2 Saturation (94-97) % ABG Hematocrit (34.0-46.0) % ABG Sodium (135-146) mmol/L ABG Potassium (3.4-4.5) mmol/L Chloride (98-107) mmol/L BUN (7-17) mg/dL Creatinine (0.52-1.04) mg/dL POC Glucose (mg/dL) 142 H 133 H 124 H (75-99) mg/dL Calcium (8.4-10.2) mg/dL Ionized Calcium Luz Elena (4.5-5.3) mg/dL Magnesium (1.6-2.3) mg/dL AST (14-36) U/L ALT (9-52) U/L Alkaline Phosphatase (38-126) U/L Total Protein (6.3-8.2) g/dL Albumin (3.5-5.0) g/dL Arterial Blood Potassium (3.4-4.5) mmol/L Crossmatch 03/06/17 03/06/17 03/06/17 Range/Units 04:18 04:20 04:20 RBC 3.27 L (3.80-5.40) m/uL Hgb 7.8 L (11.4-16.0) gm/dL Hct 23.9 L (34.0-46.0) % MCV 73.2 L (80.0-100.0) fL MCH 23.9 L (25.0-35.0) pg RDW 23.0 H (11.5-15.5) % Plt Count 109 L (150-450) k/uL PT (9.0-12.0) sec INR (<1.2) ABG pH (7.35-7.45) ABG pCO2 (35-45) mmHg ABG pO2 (83-108) mmHg ABG HCO3 (21-25) mmol/L ABG Total CO2 (19-24) mmol/L ABG O2 Saturation (94-97) % ABG Hematocrit (34.0-46.0) % ABG Sodium (135-146) mmol/L ABG Potassium (3.4-4.5) mmol/L Chloride 108 H (98-107) mmol/L BUN 26 H (7-17) mg/dL Creatinine 1.85 H (0.52-1.04) mg/dL POC Glucose (mg/dL) 106 H (75-99) mg/dL Calcium 7.5 L (8.4-10.2) mg/dL Ionized Calcium Luz Elena 4.4 L (4.5-5.3) mg/dL Magnesium 2.4 H (1.6-2.3) mg/dL AST 100 H (14-36) U/L ALT 54 H (9-52) U/L Alkaline Phosphatase 33 L (38-126) U/L Total Protein 4.5 L (6.3-8.2) g/dL Albumin 2.9 L (3.5-5.0) g/dL Arterial Blood Potassium (3.4-4.5) mmol/L Crossmatch 03/06/17 03/06/17 03/06/17 Range/Units 04:20 04:58 06:01 RBC (3.80-5.40) m/uL Hgb (11.4-16.0) gm/dL Hct (34.0-46.0) % MCV (80.0-100.0) fL MCH (25.0-35.0) pg RDW (11.5-15.5) % Plt Count (150-450) k/uL PT 12.1 H (9.0-12.0) sec INR 1.2 H (<1.2) ABG pH (7.35-7.45) ABG pCO2 (35-45) mmHg ABG pO2 69 L (83-108) mmHg ABG HCO3 (21-25) mmol/L ABG Total CO2 (19-24) mmol/L ABG O2 Saturation (94-97) % ABG Hematocrit (34.0-46.0) % ABG Sodium (135-146) mmol/L ABG Potassium (3.4-4.5) mmol/L Chloride (98-107) mmol/L BUN (7-17) mg/dL Creatinine (0.52-1.04) mg/dL POC Glucose (mg/dL) 129 H (75-99) mg/dL Calcium (8.4-10.2) mg/dL Ionized Calcium Luz Elena (4.5-5.3) mg/dL Magnesium (1.6-2.3) mg/dL AST (14-36) U/L ALT (9-52) U/L Alkaline Phosphatase (38-126) U/L Total Protein (6.3-8.2) g/dL Albumin (3.5-5.0) g/dL Arterial Blood Potassium (3.4-4.5) mmol/L Crossmatch 03/06/17 03/06/17 Range/Units 07:05 08:12 RBC (3.80-5.40) m/uL Hgb (11.4-16.0) gm/dL Hct (34.0-46.0) % MCV (80.0-100.0) fL MCH (25.0-35.0) pg RDW (11.5-15.5) % Plt Count (150-450) k/uL PT (9.0-12.0) sec INR (<1.2) ABG pH (7.35-7.45) ABG pCO2 (35-45) mmHg ABG pO2 (83-108) mmHg ABG HCO3 (21-25) mmol/L ABG Total CO2 (19-24) mmol/L ABG O2 Saturation (94-97) % ABG Hematocrit (34.0-46.0) % ABG Sodium (135-146) mmol/L ABG Potassium (3.4-4.5) mmol/L Chloride (98-107) mmol/L BUN (7-17) mg/dL Creatinine (0.52-1.04) mg/dL POC Glucose (mg/dL) 143 H 138 H (75-99) mg/dL Calcium (8.4-10.2) mg/dL Ionized Calcium Luz Elena (4.5-5.3) mg/dL Magnesium (1.6-2.3) mg/dL AST (14-36) U/L ALT (9-52) U/L Alkaline Phosphatase (38-126) U/L Total Protein (6.3-8.2) g/dL Albumin (3.5-5.0) g/dL Arterial Blood Potassium (3.4-4.5) mmol/L Crossmatch Assessment and Plan Plan: Assessment Status post aVR using bioprosthetic valve Acute respiratory failure Possible AV don dysfunction. Plan Continue monitor the rhythm and assess for underlying rhythm There is high chance that the patient might need permanent pacemaker implantation Follow-up with the patient
[2017-03-06 09:09] LABS: Glucose,Whole Blood 154 mg/dL (75-99)
--- NOTE | 2017-03-06 09:28 | P.PN ---
Subjective Principal diagnosis: Bicuspid aortic valve with critical aortic stenosis, aortic insufficiency. CAD. Diabetes mellitus. Hypertension. History of TIAs, neuropathy, pericarditis, scoliosis, brain concussion. History of paroxysmal atrial fibrillation POD #2 elective aortic valve replacement with #25 mm magna ease bioprosthetic aortic valve, a clip ligation into left atrial appendage with a #35 mm AtriClip and intraoperative transesophageal echocardiogram. Postoperative acute blood loss anemia, a potential expected outcome of surgery. POD #2 reexploration of the chest, evacuation of clot, control of bleed. Postoperative hypoxic respiratory failure requiring prolonged mechanical ventilation, a potential expected outcome of surgery. The patient continues to remain sedated on mechanical ventilation. CPAP trial was tried last night, patient became hypoxic and tachypneic and was returned to full ventilatory support. Remains pacemaker dependent. Objective - Vital Signs Vital signs: Vital Signs Temp 98.6 F 03/06/17 08:00 Pulse 80 03/06/17 08:00 Resp 24 03/06/17 08:00 BP 68/40 03/04/17 16:00 Pulse Ox 96 03/06/17 08:00 Intake & Output 03/05/17 03/06/17 03/06/17 18:59 06:59 18:59 Intake Total 2121.903 1067.292 357.021 Output Total 953 470 74 Balance 1168.903 597.292 283.021 Weight 87.3 kg Intake: IV 1200 600 200 ACETAMINOPHEN IV (For NPO 100 ) 1,000 mg In Empty Bag 1 bag @ 400 mls/hr IVPB Q6HR [facility] Rx#:[id number] Calcium Gluconate 2,000 200 mg In Sodium Chloride 0.9 % 100 ml @ 100 mls/hr IVPB ONCE PRN Rx#: [id number] Lactated Ringers 1,000 ml 600 250 @ 50 mls/hr IV .Q20H [facility] Rx#:[id number] Magnesium Sulfate-D5w Pmx 200 1 gm In Dextrose/Water 1 100ml.bag @ 100 mls/hr IVPB Q1H [facility] Rx#: [id number] Potassium Chloride 10 meq 100 In Water For Injection 1 100ml.bag @ 100 mls/hr IVPB Q1H [facility] Rx#: [id number] Sodium Chloride 0.9% 1, 350 100 000 ml @ 50 mls/hr IV . Q20H [facility] Rx#:[id number] ceFAZolin 2 gm In Sodium 100 Chloride 0.9% 100 ml @ 100 mls/hr IVPB Q8HR [facility] Rx#:[id number] Intake, IV Titration 611.903 467.292 157.021 Amount Amiodarone 450 mg In 148.829 Dextrose 5% in Water 250 ml @ 1 MG/MIN 33.33 mls/ hr IV .Q7H31M [facility] Rx#: [id number] Clevidipine Butyrate 25 0 46.816 5.700 mg In Empty Bag 1 bag @ 1 MG/HR 2 mls/hr IV .Q24H [facility] Rx#:[id number] Insulin Regular 100 unit 57.485 32.925 5.297 In Sodium Chloride 0.9% 100 ml @ Per Protocol IV .Q0M [facility] Rx#:[id number] Milrinone-D5w Pmx 20 mg 83.61 89.928 In Dextrose/Water 1 100ml .bag @ 0.2 MCG/KG/MIN 4. 51 mls/hr IV .[id number] [facility] Rx#:[id number] Norepinephrin 4 mg-0.9% 67.001 84.063 Ns Pmx 4 mg In 250 ml @ Titrate IV .Q0M [facility] Rx#: [id number] Potassium Chloride 10 meq 200 In Water For Injection 1 100ml.bag @ 100 mls/hr IVPB Q1H [facility] Rx#: [id number] Potassium Chloride 10 meq 100 In Water For Injection 1 100ml.bag @ 100 mls/hr IVPB Q1H [facility] Rx#: [id number] Propofol 1,000 mg In 100 38.588 219.878 56.096 ml @ Titrate IV .Q0M [facility] Rx#:[id number] Blood Product 310 Rc As-3 Unit 310 [id number] Output: Chest Tube Drainage 283 176 49 Left Lateral Chest 53 32 9 Mediastinal x 2 230 144 40 Urine 670 294 25 Other: Voiding Method Indwelling Catheter Indwelling Catheter ABP, PAP, CO, CI - Last Documented Arterial Blood Pressure 109/42 Pulmonary Artery Pressure 37/22 Cardiac Output 4.9 Cardiac Index 2.8 - Constitutional General appearance: Present: no acute distress - Respiratory Details: Lungs sounds diminished bilaterally. Respirations even, nonlabored on mechanical ventilation. Current ventilator settings assist control mode, tidal volume 350, respiratory rate 24, FiO2 60%, PEEP 10. Mediastinal chest tube to - 20 cm wall suction, 110 mL serous drainage overnight, 400 mL since surgery. Left pleural chest tube to -20 cm wall suction, 30 mL serous drainage overnight , 85 mL in the last 24 hours. No air leaks present. - Cardiovascular Details: Patient's currently AV paced at 80 bpm. Generator set to DDD mode. Sternum stable. Right radial A-line, right internal jugular Cordis/[place] catheter present. Trace generalized edema present. TEDS/SCDs present. - Gastrointestinal Gastrointestinal Comment(s): Abdomen soft, nontender, slightly distended. Active bowel sounds 4 quadrants. OG tube to low intermittent suction with green bile colored drainage. - Genitourinary Genitourinary Comment(s): Cuellar present draining clear, yellow urine. Output 20-30 mL/h overnight. Lasix given this morning. - Integumentary Integumentary Comment(s): Anterior chest incision well approximated covered with dry intact dressing. - Neurologic Neurologic Comment(s): Sedated with propofol. Does not follow commands but does withdraw to painful stimuli. - Allied health notes Allied health notes reviewed: nursing - Labs CBC & Chem 7: 03/06/17 04:20 03/06/17 04:20 Labs: Abnormal Lab Results - Last 24 Hours (Table) 02/23/17 03/04/17 03/04/17 Range/Units 09:08 09:39 10:42 RBC (3.80-5.40) m/uL Hgb (11.4-16.0) gm/dL Hct (34.0-46.0) % MCV (80.0-100.0) fL MCH (25.0-35.0) pg RDW (11.5-15.5) % Plt Count (150-450) k/uL PT (9.0-12.0) sec INR (<1.2) ABG pH (7.35-7.45) ABG pCO2 (35-45) mmHg ABG pO2 239 H 254 H (83-108) mmHg ABG HCO3 (21-25) mmol/L ABG Total CO2 25 H (19-24) mmol/L ABG O2 Saturation 99.8 H 99.8 H (94-97) % ABG Hematocrit 31 L (34.0-46.0) % ABG Sodium (135-146) mmol/L ABG Potassium (3.4-4.5) mmol/L Chloride (98-107) mmol/L BUN (7-17) mg/dL Creatinine (0.52-1.04) mg/dL POC Glucose (mg/dL) (75-99) mg/dL Calcium (8.4-10.2) mg/dL Ionized Calcium Luz Elena (4.5-5.3) mg/dL Magnesium (1.6-2.3) mg/dL AST (14-36) U/L ALT (9-52) U/L Alkaline Phosphatase (38-126) U/L Total Protein (6.3-8.2) g/dL Albumin (3.5-5.0) g/dL Arterial Blood Potassium (3.4-4.5) mmol/L Crossmatch See Detail 03/04/17 03/04/17 03/04/17 Range/Units 11:09 11:41 12:39 RBC (3.80-5.40) m/uL Hgb (11.4-16.0) gm/dL Hct (34.0-46.0) % MCV (80.0-100.0) fL MCH (25.0-35.0) pg RDW (11.5-15.5) % Plt Count (150-450) k/uL PT (9.0-12.0) sec INR (<1.2) ABG pH 7.34 L 7.30 L 7.31 L (7.35-7.45) ABG pCO2 49 H (35-45) mmHg ABG pO2 296 H 318 H 179 H (83-108) mmHg ABG HCO3 20 L (21-25) mmol/L ABG Total CO2 25 H (19-24) mmol/L ABG O2 Saturation 99.9 H 99.9 H 99.5 H (94-97) % ABG Hematocrit 26 L 27 L 28 L (34.0-46.0) % ABG Sodium (135-146) mmol/L ABG Potassium 3.1 L (3.4-4.5) mmol/L Chloride (98-107) mmol/L BUN (7-17) mg/dL Creatinine (0.52-1.04) mg/dL POC Glucose (mg/dL) (75-99) mg/dL Calcium (8.4-10.2) mg/dL Ionized Calcium Luz Elena (4.5-5.3) mg/dL Magnesium (1.6-2.3) mg/dL AST (14-36) U/L ALT (9-52) U/L Alkaline Phosphatase (38-126) U/L Total Protein (6.3-8.2) g/dL Albumin (3.5-5.0) g/dL Arterial Blood Potassium 3.1 L (3.4-4.5) mmol/L Crossmatch 03/04/17 03/04/17 03/04/17 Range/Units 19:28 19:56 20:34 RBC (3.80-5.40) m/uL Hgb (11.4-16.0) gm/dL Hct (34.0-46.0) % MCV (80.0-100.0) fL MCH (25.0-35.0) pg RDW (11.5-15.5) % Plt Count (150-450) k/uL PT (9.0-12.0) sec INR (<1.2) ABG pH 7.27 L 7.27 L (7.35-7.45) ABG pCO2 34 L (35-45) mmHg ABG pO2 70 L 120 H (83-108) mmHg ABG HCO3 15 L 20 L (21-25) mmol/L ABG Total CO2 16 L (19-24) mmol/L ABG O2 Saturation 91.1 L 98.7 H (94-97) % ABG Hematocrit 30 L 28 L 24 L (34.0-46.0) % ABG Sodium 148 H 148 H (135-146) mmol/L ABG Potassium 3.2 L (3.4-4.5) mmol/L Chloride (98-107) mmol/L BUN (7-17) mg/dL Creatinine (0.52-1.04) mg/dL POC Glucose (mg/dL) (75-99) mg/dL Calcium (8.4-10.2) mg/dL Ionized Calcium Luz Elena (4.5-5.3) mg/dL Magnesium (1.6-2.3) mg/dL AST (14-36) U/L ALT (9-52) U/L Alkaline Phosphatase (38-126) U/L Total Protein (6.3-8.2) g/dL Albumin (3.5-5.0) g/dL Arterial Blood Potassium 3.2 L (3.4-4.5) mmol/L Crossmatch 03/05/17 03/05/17 03/05/17 Range/Units 09:08 10:11 11:19 RBC (3.80-5.40) m/uL Hgb (11.4-16.0) gm/dL Hct (34.0-46.0) % MCV (80.0-100.0) fL MCH (25.0-35.0) pg RDW (11.5-15.5) % Plt Count (150-450) k/uL PT (9.0-12.0) sec INR (<1.2) ABG pH (7.35-7.45) ABG pCO2 (35-45) mmHg ABG pO2 (83-108) mmHg ABG HCO3 (21-25) mmol/L ABG Total CO2 (19-24) mmol/L ABG O2 Saturation (94-97) % ABG Hematocrit (34.0-46.0) % ABG Sodium (135-146) mmol/L ABG Potassium (3.4-4.5) mmol/L Chloride (98-107) mmol/L BUN (7-17) mg/dL Creatinine (0.52-1.04) mg/dL POC Glucose (mg/dL) 142 H 122 H 102 H (75-99) mg/dL Calcium (8.4-10.2) mg/dL Ionized Calcium Luz Elena (4.5-5.3) mg/dL Magnesium (1.6-2.3) mg/dL AST (14-36) U/L ALT (9-52) U/L Alkaline Phosphatase (38-126) U/L Total Protein (6.3-8.2) g/dL Albumin (3.5-5.0) g/dL Arterial Blood Potassium (3.4-4.5) mmol/L Crossmatch 03/05/17 03/05/17 03/05/17 Range/Units 11:45 12:15 14:10 RBC (3.80-5.40) m/uL Hgb (11.4-16.0) gm/dL Hct (34.0-46.0) % MCV (80.0-100.0) fL MCH (25.0-35.0) pg RDW (11.5-15.5) % Plt Count (150-450) k/uL PT (9.0-12.0) sec INR (<1.2) ABG pH (7.35-7.45) ABG pCO2 (35-45) mmHg ABG pO2 (83-108) mmHg ABG HCO3 (21-25) mmol/L ABG Total CO2 (19-24) mmol/L ABG O2 Saturation (94-97) % ABG Hematocrit (34.0-46.0) % ABG Sodium (135-146) mmol/L ABG Potassium (3.4-4.5) mmol/L Chloride (98-107) mmol/L BUN (7-17) mg/dL Creatinine (0.52-1.04) mg/dL POC Glucose (mg/dL) 103 H 146 H (75-99) mg/dL Calcium (8.4-10.2) mg/dL Ionized Calcium Luz Elena 4.2 L (4.5-5.3) mg/dL Magnesium 2.4 H (1.6-2.3) mg/dL AST (14-36) U/L ALT (9-52) U/L Alkaline Phosphatase (38-126) U/L Total Protein (6.3-8.2) g/dL Albumin (3.5-5.0) g/dL Arterial Blood Potassium (3.4-4.5) mmol/L Crossmatch 03/05/17 03/05/17 03/05/17 Range/Units 15:18 16:05 17:24 RBC (3.80-5.40) m/uL Hgb (11.4-16.0) gm/dL Hct (34.0-46.0) % MCV (80.0-100.0) fL MCH (25.0-35.0) pg RDW (11.5-15.5) % Plt Count (150-450) k/uL PT (9.0-12.0) sec INR (<1.2) ABG pH (7.35-7.45) ABG pCO2 (35-45) mmHg ABG pO2 (83-108) mmHg ABG HCO3 (21-25) mmol/L ABG Total CO2 (19-24) mmol/L ABG O2 Saturation (94-97) % ABG Hematocrit (34.0-46.0) % ABG Sodium (135-146) mmol/L ABG Potassium (3.4-4.5) mmol/L Chloride (98-107) mmol/L BUN (7-17) mg/dL Creatinine (0.52-1.04) mg/dL POC Glucose (mg/dL) 143 H 130 H 117 H (75-99) mg/dL Calcium (8.4-10.2) mg/dL Ionized Calcium Luz Elena (4.5-5.3) mg/dL Magnesium (1.6-2.3) mg/dL AST (14-36) U/L ALT (9-52) U/L Alkaline Phosphatase (38-126) U/L Total Protein (6.3-8.2) g/dL Albumin (3.5-5.0) g/dL Arterial Blood Potassium (3.4-4.5) mmol/L Crossmatch 03/05/17 03/05/17 03/05/17 Range/Units 19:07 20:02 21:02 RBC (3.80-5.40) m/uL Hgb (11.4-16.0) gm/dL Hct (34.0-46.0) % MCV (80.0-100.0) fL MCH (25.0-35.0) pg RDW (11.5-15.5) % Plt Count (150-450) k/uL PT (9.0-12.0) sec INR (<1.2) ABG pH (7.35-7.45) ABG pCO2 (35-45) mmHg ABG pO2 (83-108) mmHg ABG HCO3 (21-25) mmol/L ABG Total CO2 (19-24) mmol/L ABG O2 Saturation (94-97) % ABG Hematocrit (34.0-46.0) % ABG Sodium (135-146) mmol/L ABG Potassium (3.4-4.5) mmol/L Chloride (98-107) mmol/L BUN (7-17) mg/dL Creatinine (0.52-1.04) mg/dL POC Glucose (mg/dL) 114 H 123 H 133 H (75-99) mg/dL Calcium (8.4-10.2) mg/dL Ionized Calcium Luz Elena (4.5-5.3) mg/dL Magnesium (1.6-2.3) mg/dL AST (14-36) U/L ALT (9-52) U/L Alkaline Phosphatase (38-126) U/L Total Protein (6.3-8.2) g/dL Albumin (3.5-5.0) g/dL Arterial Blood Potassium (3.4-4.5) mmol/L Crossmatch 03/05/17 03/05/17 03/05/17 Range/Units 23:08 23:55 23:56 RBC (3.80-5.40) m/uL Hgb (11.4-16.0) gm/dL Hct (34.0-46.0) % MCV (80.0-100.0) fL MCH (25.0-35.0) pg RDW (11.5-15.5) % Plt Count (150-450) k/uL PT (9.0-12.0) sec INR (<1.2) ABG pH (7.35-7.45) ABG pCO2 34 L (35-45) mmHg ABG pO2 61 L (83-108) mmHg ABG HCO3 (21-25) mmol/L ABG Total CO2 (19-24) mmol/L ABG O2 Saturation 92.0 L (94-97) % ABG Hematocrit (34.0-46.0) % ABG Sodium (135-146) mmol/L ABG Potassium (3.4-4.5) mmol/L Chloride (98-107) mmol/L BUN (7-17) mg/dL Creatinine (0.52-1.04) mg/dL POC Glucose (mg/dL) 150 H 142 H (75-99) mg/dL Calcium (8.4-10.2) mg/dL Ionized Calcium Luz Elena (4.5-5.3) mg/dL Magnesium (1.6-2.3) mg/dL AST (14-36) U/L ALT (9-52) U/L Alkaline Phosphatase (38-126) U/L Total Protein (6.3-8.2) g/dL Albumin (3.5-5.0) g/dL Arterial Blood Potassium (3.4-4.5) mmol/L Crossmatch 03/06/17 03/06/17 03/06/17 Range/Units 01:16 02:48 04:18 RBC (3.80-5.40) m/uL Hgb (11.4-16.0) gm/dL Hct (34.0-46.0) % MCV (80.0-100.0) fL MCH (25.0-35.0) pg RDW (11.5-15.5) % Plt Count (150-450) k/uL PT (9.0-12.0) sec INR (<1.2) ABG pH (7.35-7.45) ABG pCO2 (35-45) mmHg ABG pO2 (83-108) mmHg ABG HCO3 (21-25) mmol/L ABG Total CO2 (19-24) mmol/L ABG O2 Saturation (94-97) % ABG Hematocrit (34.0-46.0) % ABG Sodium (135-146) mmol/L ABG Potassium (3.4-4.5) mmol/L Chloride (98-107) mmol/L BUN (7-17) mg/dL Creatinine (0.52-1.04) mg/dL POC Glucose (mg/dL) 133 H 124 H 106 H (75-99) mg/dL Calcium (8.4-10.2) mg/dL Ionized Calcium Luz Elena (4.5-5.3) mg/dL Magnesium (1.6-2.3) mg/dL AST (14-36) U/L ALT (9-52) U/L Alkaline Phosphatase (38-126) U/L Total Protein (6.3-8.2) g/dL Albumin (3.5-5.0) g/dL Arterial Blood Potassium (3.4-4.5) mmol/L Crossmatch 03/06/17 03/06/17 03/06/17 Range/Units 04:20 04:20 04:20 RBC 3.27 L (3.80-5.40) m/uL Hgb 7.8 L (11.4-16.0) gm/dL Hct 23.9 L (34.0-46.0) % MCV 73.2 L (80.0-100.0) fL MCH 23.9 L (25.0-35.0) pg RDW 23.0 H (11.5-15.5) % Plt Count 109 L (150-450) k/uL PT 12.1 H (9.0-12.0) sec INR 1.2 H (<1.2) ABG pH (7.35-7.45) ABG pCO2 (35-45) mmHg ABG pO2 (83-108) mmHg ABG HCO3 (21-25) mmol/L ABG Total CO2 (19-24) mmol/L ABG O2 Saturation (94-97) % ABG Hematocrit (34.0-46.0) % ABG Sodium (135-146) mmol/L ABG Potassium (3.4-4.5) mmol/L Chloride 108 H (98-107) mmol/L BUN 26 H (7-17) mg/dL Creatinine 1.85 H (0.52-1.04) mg/dL POC Glucose (mg/dL) (75-99) mg/dL Calcium 7.5 L (8.4-10.2) mg/dL Ionized Calcium Luz Elena 4.4 L (4.5-5.3) mg/dL Magnesium 2.4 H (1.6-2.3) mg/dL AST 100 H (14-36) U/L ALT 54 H (9-52) U/L Alkaline Phosphatase 33 L (38-126) U/L Total Protein 4.5 L (6.3-8.2) g/dL Albumin 2.9 L (3.5-5.0) g/dL Arterial Blood Potassium (3.4-4.5) mmol/L Crossmatch 03/06/17 03/06/17 03/06/17 Range/Units 04:58 06:01 07:05 RBC (3.80-5.40) m/uL Hgb (11.4-16.0) gm/dL Hct (34.0-46.0) % MCV (80.0-100.0) fL MCH (25.0-35.0) pg RDW (11.5-15.5) % Plt Count (150-450) k/uL PT (9.0-12.0) sec INR (<1.2) ABG pH (7.35-7.45) ABG pCO2 (35-45) mmHg ABG pO2 69 L (83-108) mmHg ABG HCO3 (21-25) mmol/L ABG Total CO2 (19-24) mmol/L ABG O2 Saturation (94-97) % ABG Hematocrit (34.0-46.0) % ABG Sodium (135-146) mmol/L ABG Potassium (3.4-4.5) mmol/L Chloride (98-107) mmol/L BUN (7-17) mg/dL Creatinine (0.52-1.04) mg/dL POC Glucose (mg/dL) 129 H 143 H (75-99) mg/dL Calcium (8.4-10.2) mg/dL Ionized Calcium Luz Elena (4.5-5.3) mg/dL Magnesium (1.6-2.3) mg/dL AST (14-36) U/L ALT (9-52) U/L Alkaline Phosphatase (38-126) U/L Total Protein (6.3-8.2) g/dL Albumin (3.5-5.0) g/dL Arterial Blood Potassium (3.4-4.5) mmol/L Crossmatch 03/06/17 Range/Units 08:12 RBC (3.80-5.40) m/uL Hgb (11.4-16.0) gm/dL Hct (34.0-46.0) % MCV (80.0-100.0) fL MCH (25.0-35.0) pg RDW (11.5-15.5) % Plt Count (150-450) k/uL PT (9.0-12.0) sec INR (<1.2) ABG pH (7.35-7.45) ABG pCO2 (35-45) mmHg ABG pO2 (83-108) mmHg ABG HCO3 (21-25) mmol/L ABG Total CO2 (19-24) mmol/L ABG O2 Saturation (94-97) % ABG Hematocrit (34.0-46.0) % ABG Sodium (135-146) mmol/L ABG Potassium (3.4-4.5) mmol/L Chloride (98-107) mmol/L BUN (7-17) mg/dL Creatinine (0.52-1.04) mg/dL POC Glucose (mg/dL) 138 H (75-99) mg/dL Calcium (8.4-10.2) mg/dL Ionized Calcium Luz Elena (4.5-5.3) mg/dL Magnesium (1.6-2.3) mg/dL AST (14-36) U/L ALT (9-52) U/L Alkaline Phosphatase (38-126) U/L Total Protein (6.3-8.2) g/dL Albumin (3.5-5.0) g/dL Arterial Blood Potassium (3.4-4.5) mmol/L Crossmatch - Imaging and Cardiology Chest x-ray: report reviewed, image reviewed Assessment and Plan (1) History of TIA (transient ischemic attack) Status: Acute (2) Hyperlipidemia Status: Acute (3) Osteoarthritis Status: Acute (4) Acute blood loss as cause of postoperative anemia Status: Acute (5) Paroxysmal atrial fibrillation Status: Acute (6) Status post aortic valve replacement Status: Acute (7) Bicuspid aortic valve Status: Acute (8) Diabetes mellitus, insulin dependent (IDDM), controlled Status: Acute (9) Hypertension Status: Acute (10) Severe aortic stenosis Status: Acute Plan: 1. Continue aspirin, statin, Plavix. Beta blockers and hold currently. Will restart when able. 2. Wean O2 as tolerated. Ventilatory support per pulmonary services. 3. Wean Cleviprex as tolerated. Prefer systolic blood pressure 100-130 and mean arterial pressure 65-70. 4. Wean Primacor. 5. Lasix IV push given this morning, monitor urine output. 6. Dr. Ledesma consulted for possible permanent pacemaker placement. 7. Monitor daily labs, chest x-rays. 8. GI/DVT prophylaxis. 9. Insulin management per primary service. 10. More recommendations as patient progresses. Time with Patient: Greater than 30
[2017-03-06] MEDS: ATORVASTATIN 40 MG TAB PO SCH (09:44)
[2017-03-06] MEDS: CHLORHEXIDINE GLUCONATE 15 ML CUP MUCOUS MEM SCH ×2 (09:44→20:10)
[2017-03-06] MEDS: PANTOPRAZOLE 40 MG/10 ML VIAL IVP SCH (09:45)
[2017-03-06] MEDS: ASPIRIN 325 MG TAB PO SCH (09:45)
[2017-03-06] MEDS: MUPIROCIN 2% OINT 22 GM TUBE NASAL SCH ×2 (09:45→20:11)
[2017-03-06] MEDS: METOPROLOL TARTRATE 12.5 MG TAB PO SCH ×2 (09:45→20:10)
[2017-03-06] MEDS: CLOPIDOGREL 75 MG TAB PO SCH (09:55)
[2017-03-06 10:13] LABS: Glucose,Whole Blood 141 mg/dL (75-99)
[2017-03-06 11:04] LABS: Glucose,Whole Blood 136 mg/dL (75-99)
[2017-03-06 13:09] LABS: Glucose,Whole Blood 123 mg/dL (75-99)
[2017-03-06 14:01] LABS: Glucose,Whole Blood 130 mg/dL (75-99)
[2017-03-06] MEDS ORDERED: ALBUMIN HUMAN 5% 250 ML IVPB ONE (15:12)
--- NOTE | 2017-03-06 15:39 | P.PCN ---
Date of Procedure: 03/06/17 Preoperative Diagnosis: Right pleural effusion Postoperative Diagnosis: Right pleural effusion Procedure(s) Performed: Right chest tube placement Implants: 28-Z[place]an chest tube Anesthesia: local Surgeon: Alexander Heart Estimated Blood Loss (ml): 5 Pathology: none sent Condition: stable Disposition: ICU Indications for Procedure: Patient is a 76-year-old female who is status post aortic valve replacement which was complicated by postoperative hemorrhage with return to the operating room later that night. She has had a persistent right pleural effusion. Case was discussed with her attending surgeon Dr. Aguirre who felt strongly that a right chest tube should be placed to drain the right pleural effusion which she was suspicious might be hemothorax residua. I attempted to reach the patient's family but was unable to do so. In light of her critical nature on a breathing machine in the ICU with deteriorating hemoglobin it was decided to proceed with the procedure without consent. Operative Findings: Description of Procedure: Right anterior chest was sterilely prepped and draped. 2% lidocaine was used to anesthetize in the anterior axillary line in the sixth interspace. Incision was made and carried posteriorly. Sixth interspace was entered with a hemostat and a finger was inserted to confirm presence in the right pleural space. 28- [place]an chest tube was inserted in the right pleural space. A small amount of serous fluid was identified. Chest tube was connected to a Pleur-evac. Chest tube was secured with an 0 Ethibond suture. Chest x-ray was ordered.
[2017-03-06 15:52] LABS: Glucose,Whole Blood 124 mg/dL (75-99)
--- NOTE | 2017-03-06 15:53 | XR ---
EXAMINATION TYPE: XR chest 1V portable DATE OF EXAM: 03/06/2017 CLINICAL HISTORY: Difficulty breathing progress study. TECHNIQUE: Single AP portable upright view of the chest is obtained. COMPARISON: Chest x-ray from earlier today. FINDINGS: Exam is suboptimal due to multiple overlying wires and EKG leads. An endotracheal tube, or ogastric tube, mediastinal drainage catheter, and left lateral chest tube are all stable in appearanc e. Sternal wires are redemonstrated. There is metallic aortic valve and left-sided cardiac closure de vice all redemonstrated. There is persistent cardiomegaly with moderate to severe central vascular congestion and right basila r opacity felt to reflect small to moderate-sized right pleural effusion and associated right basilar atelectasis and/or infiltrate. No sizable pneumothorax is seen bilaterally. IMPRESSION: Overall stable findings, suspect CHF exacerbation as there is cardiomegaly with moderat e to severe central vascular congestion and small to moderate-sized right pleural effusion with assoc iated right basilar atelectasis and/or infiltrate all redemonstrated.
[2017-03-06 17:02] LABS: Glucose,Whole Blood 121 mg/dL (75-99)
--- NOTE | 2017-03-06 17:50 | PN ---
Critical care time: 40 minutes. This is a patient who is postop day number two status post aortic valve replacement. Her primary is Dr. Tabor. She has history of hypertension, diabetes, hyperlipidemia, asthma, CVA/TIA, pericarditis. The patient has been slow to wean from mechanical ventilation. Currently on the assist control mode rate of 24, tidal volume 350, FIO2 60%, PEEP 10, blood gases showed a PO2 69, P2O2 37, pH 7.41. She is on a number of drips including insulin 5.5 units an hour, ( ) at 1.5 mg an hour, Primacor 0.2 mcg, Propofol at 30 mcg per kg per minute and 0.9 IV at 50 mL an hour. The patient did go back to the operating room after her initial surgery for mediastinal bleeding. Current vital signs include temperature is 98.6, heart rate 80, respiratory rate 24. Blood pressure 124/49. Mean 74. Central venous pressure 21. Saturations mid 90s. Pulmonary artery pressure 37/24. Appears in no acute distress. HEENT examination is grossly unremarkable. Mucous membranes are moist. Orally placed endotracheal tube and NG tube are noted. Neck is supple. Full range of motion. No adenopathy or thyromegaly. Cardiovascular examination reveals regular rhythm and rate. S1, S2 normal. Heart rate 80. Lungs reveal some coarse rhonchi. Diminished breath sounds. Abdomen is soft. Bowel sounds are heard. Extremities intact. No cyanosis, clubbing or edema. Skin without rash. Neurological examination could not be adequately performed. Chest x-ray shows resolving CHF. Labs are reviewed. White count 9.2, hemoglobin 7.8, hematocrit 23.9. Platelet count 109,000. PT/INR 12.1 and 1.2. Sodium 141, potassium 3.9, chloride 108. CO2 23, BUN and creatinine were 26 and 1.85. The rest of the labs are reviewed. Microbiology is all negative. Medications are reviewed. She is on updrafts q4. ASSESSMENT: 1. Severe bicuspid aortic stenosis status post aortic valve replacement using a #25 mm Magna-Ease bioprosthetic valve, postop day number two. 2. Postoperative mediastinal bleeding with hypotension requiring a trip back to the operating room. The patient did receive 4 units of PRBC and 2 units of fresh frozen plasma and one unit of platelets. 3. Hypoxemic respiratory failure requiring intubation, mechanical ventilation , postoperative in nature, with failure to wean. 4. Diabetes mellitus. 5. Hyperlipidemia. 6. History of hypertension. 7. History of cerebrovascular accident/transient ischemic attack. 8. History of asthma. PLAN: The patient is on appropriate medications. I will continue to follow closely. Gases are borderline. She is on appropriate vent settings, AC 24, tidal volume 350, FIO2 60%, PEEP 10. She is on a number of different drips including insulin, ( ), Primacor, Propofol and 0.9 IV. We will start tube feeds on her. Prognosis guarded. Medications are reviewed. MTDD
[2017-03-06 18:01] LABS: Glucose,Whole Blood 119 mg/dL (75-99)
[2017-03-06 19:12] LABS: Glucose,Whole Blood 114 mg/dL (75-99)
[2017-03-06 19:57] LABS: Glucose,Whole Blood 132 mg/dL (75-99)
[2017-03-06] MEDS: MORPHINE SULFATE 2 MG/ML SYRINGE IVP PRN (19:58)
[2017-03-06] MEDS: SENNOSIDES-DOCUSATE SODIUM 1 EACH TAB PO SCH (20:11)
[2017-03-06 22:13] LABS: Glucose,Whole Blood 130 mg/dL (75-99)
[2017-03-06 23:06] LABS: Glucose,Whole Blood 126 mg/dL (75-99)
[2017-03-07 00:03] LABS: Glucose,Whole Blood 119 mg/dL (75-99)
[2017-03-07 02:12] LABS: Glucose,Whole Blood 139 mg/dL (75-99)
[2017-03-07 02:56] LABS: Glucose,Whole Blood 144 mg/dL (75-99)
[2017-03-07] MEDS: IPRATROPIUM-ALBUTEROL 3 ML NEB INHALATION SCH ×6 (03:04→22:59)
[2017-03-07 04:46] LABS: Glucose,Whole Blood 150 mg/dL (75-99)
[2017-03-07] MEDS: INSULIN REGULAR 100 UNIT in SODIUM CHLORIDE 0.9% 100 ML IV SCH ×2 (04:53→20:56)
[2017-03-07] MEDS: PROPOFOL 1,000 MG/100 ML VIAL IV SCH ×3 (04:54→14:30)
[2017-03-07] MEDS: HEPARIN SODIUM,PORCINE 5,000 UNIT/ML 1 ML VIAL SQ SCH ×3 (04:55→20:23)
[2017-03-07 05:01] LABS: ABG Base Excess -2.3 mmol/L; ABG HCO3 21 mmol/L (21-25); ABG PCO2 33 mmHg (35-45); ABG PH 7.43 (7.35-7.45); ABG PO2 70 mmHg (83-108); ABG TCO2 23 mmol/L (19-24)
[2017-03-07 05:06] LABS: Ionized Calcium 4.1 mg/dL (4.5-5.3)
[2017-03-07 05:10] LABS: Prothrombin Time 10.5 sec (9.0-12.0)
[2017-03-07 05:11] LABS: Anisocytosis Moderate; CHCM 32.8; Hypochromasia Slight; Microcytosis Marked; Poikilocytosis Slight; RDW 23.8 % (11.5-15.5)
[2017-03-07 05:13] LABS: Magnesium 2.4 mg/dL (1.6-2.3); Potassium 3.8 mmol/L (3.5-5.1); Total Bilirubin 0.8 mg/dL (0.2-1.3); Total Protein 4.8 g/dL (6.3-8.2)
[2017-03-07 05:25] LABS: CH 24.3; HCT 24.8 % (34.0-46.0); HDW 3.76; HGB 8.1 gm/dL (11.4-16.0); MCHC 32.5 g/dL (31.0-37.0); Mean Platelet Volume 8.7; RBC 3.35 m/uL (3.80-5.40); WBC 12.9 k/uL (3.8-10.6); WBC (Perox) 13.57
[2017-03-07 05:54] LABS: Add Differential Manual Differential
[2017-03-07 05:57] LABS: Manual Review Performed; Myelocytes % 1.5 %; Nucleated Red Blood Cells 0 /100 WBC (0-0); Total Cells Counted 200
[2017-03-07 05:58] LABS: Target Cells Present
[2017-03-07 06:04] LABS: Glucose,Whole Blood 138 mg/dL (75-99)
[2017-03-07] MEDS ORDERED: POTASSIUM CHLORIDE ORAL LIQUID 40 MEQ/30 ML CUP NG-TUBE SCH (07:00)
--- NOTE | 2017-03-07 07:03 | XR ---
EXAMINATION TYPE: XR chest 1V portable DATE OF EXAM: 03/07/2017 HISTORY: Tube placement. REFERENCE: Previous study dated 03/06/2017. FINDINGS: There has been a midline sternotomy. The patient is ET tube and NG tube remain in place unc hanged in position. There is a Spur-Ely catheter in place with its tip in the right main pulmonary a rtery. There is a left pleural drain in place. The heart is mildly enlarged. There is improvement in the degree of vascular congestion. There are sm all effusions. There is bibasilar airspace disease. IMPRESSION: OVERALL IMPROVED AERATION, BOTH LUNG BASES.
[2017-03-07 07:08] LABS: Glucose,Whole Blood 145 mg/dL (75-99)
[2017-03-07 08:05] LABS: Glucose,Whole Blood 153 mg/dL (75-99)
--- NOTE | 2017-03-07 08:29 | P.PN ---
Subjective Principal diagnosis: Bicuspid aortic valve with critical aortic stenosis, aortic insufficiency. CAD. Diabetes mellitus. Hypertension. History of TIAs, neuropathy, pericarditis, scoliosis, brain concussion. History of paroxysmal atrial fibrillation POD #3 elective aortic valve replacement with #25 mm magna ease bioprosthetic aortic valve, a clip ligation into left atrial appendage with a #35 mm AtriClip and intraoperative transesophageal echocardiogram. Postoperative acute blood loss anemia, a potential expected outcome of surgery. POD #3 reexploration of the chest, evacuation of clot, control of bleed. Postoperative hypoxic respiratory failure requiring prolonged mechanical ventilation, a potential expected outcome of surgery. POD #1 placement of right pleural chest tube for pleural effusion The patient continues to remain sedated on mechanical ventilation. Remains pacemaker dependent. Right pleural chest tube placed yesterday, minimal drainage into the Pleur-evac, bloody drainage around the tube requiring multiple dressing changes. Patient's blood pressure has been very labile, has vacillated between needing levophed and Cleviprex. Objective - Vital Signs Vital signs: Vital Signs Temp 98.6 F 03/06/17 16:00 Pulse 80 03/07/17 07:19 Resp 24 03/07/17 06:00 BP 124/49 03/06/17 10:00 Pulse Ox 96 03/07/17 06:00 Intake & Output 17 03/07/17 03/07/17 18:59 06:59 18:59 Intake Total 1020.695 950.075 Output Total 864 963 Balance 156.695 -12.925 Weight 87.3 kg 86 kg Intake: IV 700 650 Potassium Chloride 10 meq 100 In Water For Injection 1 100ml.bag @ 100 mls/hr IVPB Q1H [facility] Rx#: [id number] Sodium Chloride 0.9% 1, 600 650 000 ml @ 50 mls/hr IV . Q20H [facility] Rx#:[id number] Intake, IV Titration 320.695 140.075 Amount Clevidipine Butyrate 25 6.700 33.583 mg In Empty Bag 1 bag @ 1 MG/HR 2 mls/hr IV .Q24H [facility] Rx#:[id number] Insulin Regular 100 unit 43.945 57.055 In Sodium Chloride 0.9% 100 ml @ Per Protocol IV .Q0M [facility] Rx#:[id number] Milrinone-D5w Pmx 20 mg 89.928 In Dextrose/Water 1 100ml .bag @ 0.2 MCG/KG/MIN 4. 51 mls/hr IV .[id number] [facility] Rx#:[id number] Norepinephrin 4 mg-0.9% 49.437 Ns Pmx 4 mg In 250 ml @ Titrate IV .Q0M [facility] Rx#: [id number] Propofol 1,000 mg In 100 180.122 ml @ Titrate IV .Q0M [facility] Rx#:[id number] Tube Feeding 100 Other 60 Output: Chest Tube Drainage 319 213 Chest Tube Right Lateral 75 23 Chest Left Lateral Chest 64 60 Mediastinal x 2 180 130 Urine 545 750 Other: Voiding Method Indwelling Catheter Indwelling Catheter ABP, PAP, CO, CI - Last Documented Arterial Blood Pressure 126/52 Pulmonary Artery Pressure 36/27 Cardiac Output 4.3 Cardiac Index 2.5 - Constitutional General appearance: Present: no acute distress - Respiratory Details: Lungs sounds diminished bilaterally. Respirations even, nonlabored on mechanical ventilation. Current ventilator settings assist control mode, FiO2 60%, tidal volume 350, PEEP 10, respiratory rate 24. Left pleural chest tube to -20 cm wall suction, 60 mL serous drainage overnight, 160 mL the last 24 hours. Mediastinal chest tube to -20 cm wall suction, 70 mL serous drainage overnight, 350 mL last 24 hours. Right pleural chest tube to -20 cm wall suction, 100 mL of serosanguinous drainage since insertion yesterday. No air leaks present. - Cardiovascular Details: A/V paced, pacemaker dependent, underlying rhythm asystole. Pacemaker generator set to DDD mode, heart rate 80. Sternum stable. Right radial A-line , right internal jugular Cordis/Elrama-Ely catheter present. Trace generalized edema present. Heart hugger, teds, SCDs present. - Gastrointestinal Gastrointestinal Comment(s): Abdomen soft, nontender, nondistended. Active bowel sounds 4 quadrants. OG tube present. Tube feeding initiated yesterday at 10 mL/h. - Genitourinary Genitourinary Comment(s): Cuellar present draining clear, yellow urine. Output 50-75 mL/h overnight. - Integumentary Integumentary Comment(s): Anterior chest incision well approximated and covered with dry intact dressing. - Neurologic Neurologic Comment(s): Remains sedated on mechanical ventilation. Does not follow commands off sedation. Does withdraw to painful stimuli. - Allied health notes Allied health notes reviewed: nursing - Labs CBC & Chem 7: 03/07/17 04:46 03/07/17 04:46 Labs: Abnormal Lab Results - Last 24 Hours (Table) 03/06/17 03/06/17 03/06/17 Range/Units 08:12 09:07 10:11 WBC (3.8-10.6) k/uL RBC (3.80-5.40) m/uL Hgb (11.4-16.0) gm/dL Hct (34.0-46.0) % MCV (80.0-100.0) fL MCH (25.0-35.0) pg RDW (11.5-15.5) % Plt Count (150-450) k/uL Neutrophils # (Manual) (1.3-7.7) k/uL ABG pCO2 (35-45) mmHg ABG pO2 (83-108) mmHg Chloride (98-107) mmol/L BUN (7-17) mg/dL Creatinine (0.52-1.04) mg/dL Glucose (74-99) mg/dL POC Glucose (mg/dL) 138 H 154 H 141 H (75-99) mg/dL Calcium (8.4-10.2) mg/dL Ionized Calcium Luz Elena (4.5-5.3) mg/dL Magnesium (1.6-2.3) mg/dL AST (14-36) U/L ALT (9-52) U/L Total Protein (6.3-8.2) g/dL Albumin (3.5-5.0) g/dL 03/06/17 03/06/17 03/06/17 Range/Units 11:01 13:07 13:59 WBC (3.8-10.6) k/uL RBC (3.80-5.40) m/uL Hgb (11.4-16.0) gm/dL Hct (34.0-46.0) % MCV (80.0-100.0) fL MCH (25.0-35.0) pg RDW (11.5-15.5) % Plt Count (150-450) k/uL Neutrophils # (Manual) (1.3-7.7) k/uL ABG pCO2 (35-45) mmHg ABG pO2 (83-108) mmHg Chloride (98-107) mmol/L BUN (7-17) mg/dL Creatinine (0.52-1.04) mg/dL Glucose (74-99) mg/dL POC Glucose (mg/dL) 136 H 123 H 130 H (75-99) mg/dL Calcium (8.4-10.2) mg/dL Ionized Calcium Luz Elena (4.5-5.3) mg/dL Magnesium (1.6-2.3) mg/dL AST (14-36) U/L ALT (9-52) U/L Total Protein (6.3-8.2) g/dL Albumin (3.5-5.0) g/dL 03/06/17 03/06/17 03/06/17 Range/Units 15:50 17:01 18:00 WBC (3.8-10.6) k/uL RBC (3.80-5.40) m/uL Hgb (11.4-16.0) gm/dL Hct (34.0-46.0) % MCV (80.0-100.0) fL MCH (25.0-35.0) pg RDW (11.5-15.5) % Plt Count (150-450) k/uL Neutrophils # (Manual) (1.3-7.7) k/uL ABG pCO2 (35-45) mmHg ABG pO2 (83-108) mmHg Chloride (98-107) mmol/L BUN (7-17) mg/dL Creatinine (0.52-1.04) mg/dL Glucose (74-99) mg/dL POC Glucose (mg/dL) 124 H 121 H 119 H (75-99) mg/dL Calcium (8.4-10.2) mg/dL Ionized Calcium Luz Elena (4.5-5.3) mg/dL Magnesium (1.6-2.3) mg/dL AST (14-36) U/L ALT (9-52) U/L Total Protein (6.3-8.2) g/dL Albumin (3.5-5.0) g/dL 03/06/17 03/06/17 03/06/17 Range/Units 19:10 19:55 22:12 WBC (3.8-10.6) k/uL RBC (3.80-5.40) m/uL Hgb (11.4-16.0) gm/dL Hct (34.0-46.0) % MCV (80.0-100.0) fL MCH (25.0-35.0) pg RDW (11.5-15.5) % Plt Count (150-450) k/uL Neutrophils # (Manual) (1.3-7.7) k/uL ABG pCO2 (35-45) mmHg ABG pO2 (83-108) mmHg Chloride (98-107) mmol/L BUN (7-17) mg/dL Creatinine (0.52-1.04) mg/dL Glucose (74-99) mg/dL POC Glucose (mg/dL) 114 H 132 H 130 H (75-99) mg/dL Calcium (8.4-10.2) mg/dL Ionized Calcium Luz Elena (4.5-5.3) mg/dL Magnesium (1.6-2.3) mg/dL AST (14-36) U/L ALT (9-52) U/L Total Protein (6.3-8.2) g/dL Albumin (3.5-5.0) g/dL 03/06/17 03/07/17 03/07/17 Range/Units 23:04 00:00 02:11 WBC (3.8-10.6) k/uL RBC (3.80-5.40) m/uL Hgb (11.4-16.0) gm/dL Hct (34.0-46.0) % MCV (80.0-100.0) fL MCH (25.0-35.0) pg RDW (11.5-15.5) % Plt Count (150-450) k/uL Neutrophils # (Manual) (1.3-7.7) k/uL ABG pCO2 (35-45) mmHg ABG pO2 (83-108) mmHg Chloride (98-107) mmol/L BUN (7-17) mg/dL Creatinine (0.52-1.04) mg/dL Glucose (74-99) mg/dL POC Glucose (mg/dL) 126 H 119 H 139 H (75-99) mg/dL Calcium (8.4-10.2) mg/dL Ionized Calcium Luz Elena (4.5-5.3) mg/dL Magnesium (1.6-2.3) mg/dL AST (14-36) U/L ALT (9-52) U/L Total Protein (6.3-8.2) g/dL Albumin (3.5-5.0) g/dL 03/07/17 03/07/17 03/07/17 Range/Units 02:54 04:42 04:43 WBC (3.8-10.6) k/uL RBC (3.80-5.40) m/uL Hgb (11.4-16.0) gm/dL Hct (34.0-46.0) % MCV (80.0-100.0) fL MCH (25.0-35.0) pg RDW (11.5-15.5) % Plt Count (150-450) k/uL Neutrophils # (Manual) (1.3-7.7) k/uL ABG pCO2 33 L (35-45) mmHg ABG pO2 70 L (83-108) mmHg Chloride (98-107) mmol/L BUN (7-17) mg/dL Creatinine (0.52-1.04) mg/dL Glucose (74-99) mg/dL POC Glucose (mg/dL) 144 H 150 H (75-99) mg/dL Calcium (8.4-10.2) mg/dL Ionized Calcium Luz Elena (4.5-5.3) mg/dL Magnesium (1.6-2.3) mg/dL AST (14-36) U/L ALT (9-52) U/L Total Protein (6.3-8.2) g/dL Albumin (3.5-5.0) g/dL 03/07/17 03/07/17 03/07/17 Range/Units 04:46 04:46 06:01 WBC 12.9 H (3.8-10.6) k/uL RBC 3.35 L (3.80-5.40) m/uL Hgb 8.1 L (11.4-16.0) gm/dL Hct 24.8 L (34.0-46.0) % MCV 74.0 L (80.0-100.0) fL MCH 24.0 L (25.0-35.0) pg RDW 23.8 H (11.5-15.5) % Plt Count 123 L (150-450) k/uL Neutrophils # (Manual) 10.6 H (1.3-7.7) k/uL ABG pCO2 (35-45) mmHg ABG pO2 (83-108) mmHg Chloride 109 H (98-107) mmol/L BUN 36 H (7-17) mg/dL Creatinine 1.91 H (0.52-1.04) mg/dL Glucose 136 H (74-99) mg/dL POC Glucose (mg/dL) 138 H (75-99) mg/dL Calcium 7.0 L (8.4-10.2) mg/dL Ionized Calcium Luz Elena 4.1 L (4.5-5.3) mg/dL Magnesium 2.4 H (1.6-2.3) mg/dL AST 199 H (14-36) U/L ALT 118 H (9-52) U/L Total Protein 4.8 L (6.3-8.2) g/dL Albumin 2.9 L (3.5-5.0) g/dL 03/07/17 Range/Units 07:06 WBC (3.8-10.6) k/uL RBC (3.80-5.40) m/uL Hgb (11.4-16.0) gm/dL Hct (34.0-46.0) % MCV (80.0-100.0) fL MCH (25.0-35.0) pg RDW (11.5-15.5) % Plt Count (150-450) k/uL Neutrophils # (Manual) (1.3-7.7) k/uL ABG pCO2 (35-45) mmHg ABG pO2 (83-108) mmHg Chloride (98-107) mmol/L BUN (7-17) mg/dL Creatinine (0.52-1.04) mg/dL Glucose (74-99) mg/dL POC Glucose (mg/dL) 145 H (75-99) mg/dL Calcium (8.4-10.2) mg/dL Ionized Calcium Luz Elena (4.5-5.3) mg/dL Magnesium (1.6-2.3) mg/dL AST (14-36) U/L ALT (9-52) U/L Total Protein (6.3-8.2) g/dL Albumin (3.5-5.0) g/dL - Imaging and Cardiology Chest x-ray: report reviewed, image reviewed Assessment and Plan (1) History of TIA (transient ischemic attack) Status: Acute (2) Hyperlipidemia Status: Acute (3) Osteoarthritis Status: Acute (4) Acute blood loss as cause of postoperative anemia Status: Acute (5) Paroxysmal atrial fibrillation Status: Acute (6) Status post aortic valve replacement Status: Acute (7) Bicuspid aortic valve Status: Acute (8) Diabetes mellitus, insulin dependent (IDDM), controlled Status: Acute (9) Hypertension Status: Acute (10) Severe aortic stenosis Status: Acute Plan: 1. Continue aspirin, statin, Plavix. Beta blockers on hold currently. Will restart when able. 2. Wean O2 as tolerated. Ventilatory support per pulmonary services. 3. Prefer systolic blood pressure 130-150 and mean arterial pressure 70-80. 4. Wean Primacor. 5. Calcium replacement today. 6. Dr. Ledesma consulted for possible permanent pacemaker placement. 7. Monitor daily labs, chest x-rays. 8. GI/DVT prophylaxis. 9. Insulin management per primary service. 10. More recommendations as patient progresses. Time with Patient: Greater than 30
[2017-03-07] MEDS: MILRINONE-D5W PMX 20 MG in DEXTROSE/WATER 1 100ML.BAG IV SCH ×3 (08:44→14:56)
[2017-03-07] MEDS: CLOPIDOGREL 75 MG TAB PO SCH (08:46)
[2017-03-07] MEDS: ATORVASTATIN 40 MG TAB PO SCH (08:46)
[2017-03-07] MEDS: ASPIRIN 325 MG TAB PO SCH (08:46)
[2017-03-07] MEDS: CHLORHEXIDINE GLUCONATE 15 ML CUP MUCOUS MEM SCH ×2 (08:46→20:23)
[2017-03-07] MEDS: PANTOPRAZOLE 40 MG/10 ML VIAL IVP SCH (08:47)
[2017-03-07] MEDS: MUPIROCIN 2% OINT 22 GM TUBE NASAL SCH ×2 (08:49→20:23)
[2017-03-07] MEDS: METOPROLOL TARTRATE 12.5 MG TAB PO SCH (08:50)
[2017-03-07] MEDS ORDERED: CALCIUM GLUCONATE 2,000 MG in SODIUM CHLORIDE 0.9% 100 ML IVPB ONE (09:00)
[2017-03-07 09:05] LABS: Glucose,Whole Blood 151 mg/dL (75-99)
[2017-03-07 10:04] LABS: Glucose,Whole Blood 151 mg/dL (75-99)
--- NOTE | 2017-03-07 10:34 | PN ---
I am covering for Dr. Tabor. This is a 76-year-old woman who was admitted with aortic valve surgery, bicuspid aortic valve. She is on mechanical ventilation. The sugars are elevated. The patient was also being evaluated for possible right chest tube placement. The patient is being closely monitored. PAST MEDICAL HISTORY: Reviewed. REVIEW OF SYSTEMS: Could not be taken at this time. CURRENT MEDICATIONS: 1. Earlimart 5 mg q4-6h p.r.n. 2. Albuterol q.i.d. p.r.n. 3. Aspirin. 4. Lipitor. 5. Dulcolax. 6. Peridex. 7. Heparin. 8. Reglan. 9. Lopressor. PHYSICAL EXAM: The patient is mechanically sedated. Pulse is 79, blood pressure 152/( ), respirations 26, temperature normal, pulse ox 92% on mechanical ventilation. Vent settings are noted. 60% tidal volume and 100% FIO2. HEENT: Conjunctivae normal. NECK: No JVD. CARDIOVASCULAR: S1/S2. RESPIRATORY: Diminished breath sounds especially in the bases. No rhonchi, no crackles. ABDOMEN: Soft, nontender. No mass palpable. LEGS: No edema. NERVOUS SYSTEM: Higher functions as mentioned. Moves all four limbs. No focal deficits. LYMPHATICS: No lymph node in neck or axillae. SKIN: No rash. LABS: At this time show glucose 123, 130. WBC 9.2, hemoglobin 7.8. ASSESSMENT: 1. Status post aortic valve replacement for bicuspid aortic valve and severe aortic stenosis and postoperative ( ) bleeding. 2. Acute hypoxic respiratory failure postoperatively. 3. Hyperlipidemia. 4. Diabetes mellitus type 2. 5. History of hypertension. 6 History of cerebrovascular accident/transient ischemic attack. RECOMMENDATIONS AND DISCUSSION: Recommend to continue current medication, continue to monitor, continue symptomatic treatment. Otherwise, closely follow with pulmonary. Repeat labs. Continue the rest of the medications. Chest x- ray shows some improvement. Continue to monitor. See orders for details. MTDD
--- NOTE | 2017-03-07 10:41 | P.PN ---
Subjective Principal diagnosis: Status post aVR This is a pleasant 76-year-old female patient who sees Dr. STELLA Lazaro as an outpatient who was diagnosed recently with symptomatic severe aortic stenosis secondary to bicuspid aortic valve. The patient underwent aVR using a bioprosthetic aortic valve. Subsequently she developed bleeding and she was taken to the OR again. Currently the patient is intubated and she is not ready to wean yet. Hemodynamically the patient has been experiencing fluctuation in the blood pressure. She has been making low urine and she was given Lasix yesterday. Currently she is on Levophed, Primacor, and propofol. She is going to be weaned from the Levophed as well as Primacor Objective - Vital Signs Vital signs: Vital Signs Temp 96.6 F L 03/07/17 08:00 Pulse 79 03/07/17 10:00 Resp 28 H 03/07/17 10:00 BP 124/49 03/06/17 10:00 Pulse Ox 99 03/07/17 10:00 Intake & Output 03/06/17 03/07/17 03/07/17 18:59 06:59 18:59 Intake Total 1020.695 950.075 363.873 Output Total 864 963 115 Balance 156.695 -12.925 248.873 Weight 87.3 kg 86 kg Intake: IV 700 650 150 Potassium Chloride 10 meq 100 In Water For Injection 1 100ml.bag @ 100 mls/hr IVPB Q1H [facility] Rx#: [id number] Sodium Chloride 0.9% 1, 600 650 150 000 ml @ 50 mls/hr IV . Q20H [facility] Rx#:[id number] Intake, IV Titration 320.695 140.075 193.873 Amount Clevidipine Butyrate 25 6.700 33.583 0 mg In Empty Bag 1 bag @ 1 MG/HR 2 mls/hr IV .Q24H [facility] Rx#:[id number] Insulin Regular 100 unit 43.945 57.055 29.362 In Sodium Chloride 0.9% 100 ml @ Per Protocol IV .Q0M [facility] Rx#:[id number] Milrinone-D5w Pmx 20 mg 89.928 93.733 In Dextrose/Water 1 100ml .bag @ 0.1 MCG/KG/MIN 2. 25 mls/hr IV .Q24H [facility] Rx #:[id number] Norepinephrin 4 mg-0.9% 49.437 Ns Pmx 4 mg In 250 ml @ Titrate IV .Q0M [facility] Rx#: [id number] Propofol 1,000 mg In 100 180.122 70.778 ml @ Titrate IV .Q0M [facility] Rx#:[id number] Tube Feeding 100 20 Other 60 Output: Chest Tube Drainage 319 213 40 Chest Tube Right Lateral 75 23 10 Chest Left Lateral Chest 64 60 10 Mediastinal x 2 180 130 20 Urine 545 750 75 Other: Voiding Method Indwelling Catheter Indwelling Catheter ABP, PAP, CO, CI - Last Documented Arterial Blood Pressure 164/64 Pulmonary Artery Pressure 37/27 Cardiac Output 4.5 Cardiac Index 2.6 - Constitutional General appearance: Present: no acute distress - Labs CBC & Chem 7: 03/07/17 04:46 03/07/17 04:46 Labs: Abnormal Lab Results - Last 24 Hours (Table) 03/06/17 03/06/17 03/06/17 Range/Units 11:01 13:07 13:59 WBC (3.8-10.6) k/uL RBC (3.80-5.40) m/uL Hgb (11.4-16.0) gm/dL Hct (34.0-46.0) % MCV (80.0-100.0) fL MCH (25.0-35.0) pg RDW (11.5-15.5) % Plt Count (150-450) k/uL Neutrophils # (Manual) (1.3-7.7) k/uL ABG pCO2 (35-45) mmHg ABG pO2 (83-108) mmHg Chloride (98-107) mmol/L BUN (7-17) mg/dL Creatinine (0.52-1.04) mg/dL Glucose (74-99) mg/dL POC Glucose (mg/dL) 136 H 123 H 130 H (75-99) mg/dL Calcium (8.4-10.2) mg/dL Ionized Calcium Luz Elena (4.5-5.3) mg/dL Magnesium (1.6-2.3) mg/dL AST (14-36) U/L ALT (9-52) U/L Total Protein (6.3-8.2) g/dL Albumin (3.5-5.0) g/dL 03/06/17 03/06/17 03/06/17 Range/Units 15:50 17:01 18:00 WBC (3.8-10.6) k/uL RBC (3.80-5.40) m/uL Hgb (11.4-16.0) gm/dL Hct (34.0-46.0) % MCV (80.0-100.0) fL MCH (25.0-35.0) pg RDW (11.5-15.5) % Plt Count (150-450) k/uL Neutrophils # (Manual) (1.3-7.7) k/uL ABG pCO2 (35-45) mmHg ABG pO2 (83-108) mmHg Chloride (98-107) mmol/L BUN (7-17) mg/dL Creatinine (0.52-1.04) mg/dL Glucose (74-99) mg/dL POC Glucose (mg/dL) 124 H 121 H 119 H (75-99) mg/dL Calcium (8.4-10.2) mg/dL Ionized Calcium Luz Elena (4.5-5.3) mg/dL Magnesium (1.6-2.3) mg/dL AST (14-36) U/L ALT (9-52) U/L Total Protein (6.3-8.2) g/dL Albumin (3.5-5.0) g/dL 03/06/17 03/06/17 03/06/17 Range/Units 19:10 19:55 22:12 WBC (3.8-10.6) k/uL RBC (3.80-5.40) m/uL Hgb (11.4-16.0) gm/dL Hct (34.0-46.0) % MCV (80.0-100.0) fL MCH (25.0-35.0) pg RDW (11.5-15.5) % Plt Count (150-450) k/uL Neutrophils # (Manual) (1.3-7.7) k/uL ABG pCO2 (35-45) mmHg ABG pO2 (83-108) mmHg Chloride (98-107) mmol/L BUN (7-17) mg/dL Creatinine (0.52-1.04) mg/dL Glucose (74-99) mg/dL POC Glucose (mg/dL) 114 H 132 H 130 H (75-99) mg/dL Calcium (8.4-10.2) mg/dL Ionized Calcium Luz Elena (4.5-5.3) mg/dL Magnesium (1.6-2.3) mg/dL AST (14-36) U/L ALT (9-52) U/L Total Protein (6.3-8.2) g/dL Albumin (3.5-5.0) g/dL 03/06/17 03/07/17 03/07/17 Range/Units 23:04 00:00 02:11 WBC (3.8-10.6) k/uL RBC (3.80-5.40) m/uL Hgb (11.4-16.0) gm/dL Hct (34.0-46.0) % MCV (80.0-100.0) fL MCH (25.0-35.0) pg RDW (11.5-15.5) % Plt Count (150-450) k/uL Neutrophils # (Manual) (1.3-7.7) k/uL ABG pCO2 (35-45) mmHg ABG pO2 (83-108) mmHg Chloride (98-107) mmol/L BUN (7-17) mg/dL Creatinine (0.52-1.04) mg/dL Glucose (74-99) mg/dL POC Glucose (mg/dL) 126 H 119 H 139 H (75-99) mg/dL Calcium (8.4-10.2) mg/dL Ionized Calcium Luz Elena (4.5-5.3) mg/dL Magnesium (1.6-2.3) mg/dL AST (14-36) U/L ALT (9-52) U/L Total Protein (6.3-8.2) g/dL Albumin (3.5-5.0) g/dL 03/07/17 03/07/17 03/07/17 Range/Units 02:54 04:42 04:43 WBC (3.8-10.6) k/uL RBC (3.80-5.40) m/uL Hgb (11.4-16.0) gm/dL Hct (34.0-46.0) % MCV (80.0-100.0) fL MCH (25.0-35.0) pg RDW (11.5-15.5) % Plt Count (150-450) k/uL Neutrophils # (Manual) (1.3-7.7) k/uL ABG pCO2 33 L (35-45) mmHg ABG pO2 70 L (83-108) mmHg Chloride (98-107) mmol/L BUN (7-17) mg/dL Creatinine (0.52-1.04) mg/dL Glucose (74-99) mg/dL POC Glucose (mg/dL) 144 H 150 H (75-99) mg/dL Calcium (8.4-10.2) mg/dL Ionized Calcium Luz Elena (4.5-5.3) mg/dL Magnesium (1.6-2.3) mg/dL AST (14-36) U/L ALT (9-52) U/L Total Protein (6.3-8.2) g/dL Albumin (3.5-5.0) g/dL 03/07/17 03/07/17 03/07/17 Range/Units 04:46 04:46 06:01 WBC 12.9 H (3.8-10.6) k/uL RBC 3.35 L (3.80-5.40) m/uL Hgb 8.1 L (11.4-16.0) gm/dL Hct 24.8 L (34.0-46.0) % MCV 74.0 L (80.0-100.0) fL MCH 24.0 L (25.0-35.0) pg RDW 23.8 H (11.5-15.5) % Plt Count 123 L (150-450) k/uL Neutrophils # (Manual) 10.6 H (1.3-7.7) k/uL ABG pCO2 (35-45) mmHg ABG pO2 (83-108) mmHg Chloride 109 H (98-107) mmol/L BUN 36 H (7-17) mg/dL Creatinine 1.91 H (0.52-1.04) mg/dL Glucose 136 H (74-99) mg/dL POC Glucose (mg/dL) 138 H (75-99) mg/dL Calcium 7.0 L (8.4-10.2) mg/dL Ionized Calcium Luz Elena 4.1 L (4.5-5.3) mg/dL Magnesium 2.4 H (1.6-2.3) mg/dL AST 199 H (14-36) U/L ALT 118 H (9-52) U/L Total Protein 4.8 L (6.3-8.2) g/dL Albumin 2.9 L (3.5-5.0) g/dL 03/07/17 03/07/17 03/07/17 Range/Units 07:06 08:03 09:01 WBC (3.8-10.6) k/uL RBC (3.80-5.40) m/uL Hgb (11.4-16.0) gm/dL Hct (34.0-46.0) % MCV (80.0-100.0) fL MCH (25.0-35.0) pg RDW (11.5-15.5) % Plt Count (150-450) k/uL Neutrophils # (Manual) (1.3-7.7) k/uL ABG pCO2 (35-45) mmHg ABG pO2 (83-108) mmHg Chloride (98-107) mmol/L BUN (7-17) mg/dL Creatinine (0.52-1.04) mg/dL Glucose (74-99) mg/dL POC Glucose (mg/dL) 145 H 153 H 151 H (75-99) mg/dL Calcium (8.4-10.2) mg/dL Ionized Calcium Luz Elena (4.5-5.3) mg/dL Magnesium (1.6-2.3) mg/dL AST (14-36) U/L ALT (9-52) U/L Total Protein (6.3-8.2) g/dL Albumin (3.5-5.0) g/dL 03/07/17 Range/Units 10:01 WBC (3.8-10.6) k/uL RBC (3.80-5.40) m/uL Hgb (11.4-16.0) gm/dL Hct (34.0-46.0) % MCV (80.0-100.0) fL MCH (25.0-35.0) pg RDW (11.5-15.5) % Plt Count (150-450) k/uL Neutrophils # (Manual) (1.3-7.7) k/uL ABG pCO2 (35-45) mmHg ABG pO2 (83-108) mmHg Chloride (98-107) mmol/L BUN (7-17) mg/dL Creatinine (0.52-1.04) mg/dL Glucose (74-99) mg/dL POC Glucose (mg/dL) 151 H (75-99) mg/dL Calcium (8.4-10.2) mg/dL Ionized Calcium Luz Elena (4.5-5.3) mg/dL Magnesium (1.6-2.3) mg/dL AST (14-36) U/L ALT (9-52) U/L Total Protein (6.3-8.2) g/dL Albumin (3.5-5.0) g/dL Assessment and Plan Plan: Assessment Status post aVR using bioprosthetic valve Acute respiratory failure Possible AV don dysfunction. Plan Continue monitor the rhythm and assess for underlying rhythm There is high chance that the patient might need permanent pacemaker implantation Follow-up with the patient
[2017-03-07 11:07] LABS: Glucose,Whole Blood 150 mg/dL (75-99)
[2017-03-07] MEDS: NOREPINEPHRIN 4 MG-0.9% NS PMX 4 MG/250 ML ML IV SCH (11:31)
[2017-03-07 12:01] LABS: Glucose,Whole Blood 144 mg/dL (75-99)
[2017-03-07 13:10] LABS: Glucose,Whole Blood 135 mg/dL (75-99)
[2017-03-07 13:55] LABS: Glucose,Whole Blood 130 mg/dL (75-99)
[2017-03-07 14:59] LABS: Glucose,Whole Blood 130 mg/dL (75-99)
[2017-03-07] MEDS: SODIUM CHLORIDE 0.9% 1,000 ML IV SCH (15:30)
[2017-03-07 16:14] LABS: Glucose,Whole Blood 120 mg/dL (75-99)
[2017-03-07 17:03] LABS: Glucose,Whole Blood 119 mg/dL (75-99)
[2017-03-07 18:16] LABS: Glucose,Whole Blood 112 mg/dL (75-99)
[2017-03-07 19:06] LABS: Glucose,Whole Blood 114 mg/dL (75-99)
[2017-03-07 19:50] LABS: Glucose,Whole Blood 142 mg/dL (75-99)
[2017-03-07] MEDS: SENNOSIDES-DOCUSATE SODIUM 1 EACH TAB PO SCH (20:23)
[2017-03-07] MEDS: CLEVIDIPINE BUTYRATE 25 MG in EMPTY BAG 1 BAG IV SCH (20:24)
[2017-03-07 20:56] LABS: Glucose,Whole Blood 134 mg/dL (75-99)
[2017-03-07 23:16] LABS: Glucose,Whole Blood 123 mg/dL (75-99)
[2017-03-08 00:12] LABS: Glucose,Whole Blood 119 mg/dL (75-99)
[2017-03-08 02:20] LABS: Glucose,Whole Blood 106 mg/dL (75-99)
[2017-03-08] MEDS: IPRATROPIUM-ALBUTEROL 3 ML NEB INHALATION SCH ×6 (02:52→23:20)
[2017-03-08 04:07] LABS: Glucose,Whole Blood 115 mg/dL (75-99)
[2017-03-08 04:51] LABS: ABG Base Excess -2.9 mmol/L; ABG HCO3 21 mmol/L (21-25); ABG PCO2 37 mmHg (35-45); ABG PH 7.38 (7.35-7.45); ABG PO2 76 mmHg (83-108); ABG TCO2 22 mmol/L (19-24)
[2017-03-08 04:53] LABS: Ionized Calcium 4.4 mg/dL (4.5-5.3)
[2017-03-08 05:01] LABS: Anisocytosis Marked; CH 24.2; CHCM 32.2; HCT 25.9 % (34.0-46.0); HDW 3.66; HGB 8.1 gm/dL (11.4-16.0); Hypochromasia Slight; MCH 23.7 pg (25.0-35.0); MCHC 31.4 g/dL (31.0-37.0); MCV 75.5 fL (80.0-100.0); Mean Platelet Volume 9.8; Microcytosis Marked; Poikilocytosis Slight; RBC 3.43 m/uL (3.80-5.40); RDW 24.7 % (11.5-15.5); WBC (Perox) 12.89
[2017-03-08 05:03] LABS: Magnesium 2.5 mg/dL (1.6-2.3); Phosphorous 4.1 mg/dL (2.5-4.5); Potassium 4.3 mmol/L (3.5-5.1); Total Bilirubin 0.7 mg/dL (0.2-1.3); Total Protein 4.7 g/dL (6.3-8.2)
[2017-03-08 05:10] LABS: Prothrombin Time 9.9 sec (9.0-12.0)
[2017-03-08 05:18] LABS: Add Differential Manual Differential
[2017-03-08 05:26] LABS: Band Neutrophils % 0.5 %; Manual Review Performed; Nucleated Red Blood Cells 9 /100 WBC (0-0); Total Cells Counted 200; WBC 11.7 k/uL (3.8-10.6)
[2017-03-08] MEDS: HEPARIN SODIUM,PORCINE 5,000 UNIT/ML 1 ML VIAL SQ SCH ×3 (06:20→22:14)
[2017-03-08 06:21] LABS: Glucose,Whole Blood 133 mg/dL (75-99)
[2017-03-08 06:57] LABS: Glucose,Whole Blood 128 mg/dL (75-99)
--- NOTE | 2017-03-08 07:10 | XR ---
EXAMINATION TYPE: XR chest 1V portable DATE OF EXAM: 03/08/2017 COMPARISON: 03/07/2017 HISTORY: Tube placement TECHNIQUE: Single frontal view of the chest is obtained. FINDINGS: ET tube approximately 1 cm above tavia. NG tube noted. Tyler-Ely catheter stable. Suggest ion of mediastinal drain and chest tube. No sizable pneumothorax. Heart is enlarged and there is postsurgical changes. Basilar atelectasis or infiltrate with tiny effusion stable. IMPRESSION: 1. Postsurgical changes with evidence of suspected basilar atelectasis or infiltrate and tiny effusio n stable in appearance. 2. ET tube approximately 1 cm above tavia. 3. There is a drain or tube overlying the right upper quadrant of the abdomen limited clinically.
--- NOTE | 2017-03-08 07:50 | P.PN ---
Subjective Principal diagnosis: Postop day #3 for aortic valve repair. This is a continue progress note on a 76-year-old white female essentially admitted for aortic stenosis. The patient has had martinez course secondary significant pleural effusion and rhythmic changes. Minimal improvement is noted since yesterday. Report was noted from cardiovascular Dictation her. Objective - Vital Signs Vital signs: Vital Signs Temp 96.8 F L 03/07/17 16:00 Pulse 72 03/08/17 07:40 Resp 24 03/08/17 06:00 BP 122/53 03/07/17 13:00 Pulse Ox 96 03/08/17 06:00 Intake & Output 03/07/17 03/08/17 03/08/17 18:59 06:59 18:59 Intake Total 937.694 881.524 Output Total 675 1000 Balance 262.694 -118.476 Weight 88.8 kg Intake: IV 550 650 Sodium Chloride 0.9% 1, 550 650 000 ml @ 50 mls/hr IV . Q20H [facility] Rx#:[id number] Intake, IV Titration 357.694 191.524 Amount Clevidipine Butyrate 25 4.133 mg In Empty Bag 1 bag @ 1 MG/HR 2 mls/hr IV .Q24H [facility] Rx#:[id number] Insulin Regular 100 unit 88.425 55.612 In Sodium Chloride 0.9% 100 ml @ Per Protocol IV .Q0M [facility] Rx#:[id number] Milrinone-D5w Pmx 20 mg 93.733 23.1 In Dextrose/Water 1 100ml .bag @ 0.1 MCG/KG/MIN 2. 25 mls/hr IV .Q24H [facility] Rx #:[id number] Norepinephrin 4 mg-0.9% 0.625 12.812 Ns Pmx 4 mg In 250 ml @ Titrate IV .Q0M [facility] Rx#: [id number] Propofol 1,000 mg In 100 170.778 100 ml @ Titrate IV .Q0M [facility] Rx#:[id number] Tube Feeding 30 40 Output: Chest Tube Drainage 120 120 Chest Tube Right Lateral 15 0 Chest Left Lateral Chest 35 60 Mediastinal x 2 70 60 Urine 555 880 Other: Voiding Method Indwelling Catheter Indwelling Catheter ABP, PAP, CO, CI - Last Documented Arterial Blood Pressure 135/58 Pulmonary Artery Pressure 40/25 Cardiac Output 4.4 Cardiac Index 2.5 - Constitutional General appearance: Present: average body habitus - EENT Eyes: Absent: abnormal pupil - Neck Neck: Absent: lymphadenopathy - Respiratory Respiratory: bilateral: diminished - Cardiovascular Rhythm: regular Abnormal Heart Sounds: Absent: S4 Gallop - Gastrointestinal General gastrointestinal: Present: soft. Absent: tenderness - Psychiatric Psychiatric: Absent: A&O x's 3 - Labs CBC & Chem 7: 03/08/17 04:30 03/08/17 04:30 Labs: Abnormal Lab Results - Last 24 Hours (Table) 03/07/17 03/07/17 03/07/17 Range/Units 08:03 09:01 10:01 WBC (3.8-10.6) k/uL RBC (3.80-5.40) m/uL Hgb (11.4-16.0) gm/dL Hct (34.0-46.0) % MCV (80.0-100.0) fL MCH (25.0-35.0) pg RDW (11.5-15.5) % Plt Count (150-450) k/uL Neutrophils # (Manual) (1.3-7.7) k/uL Nucleated RBCs (0-0) /100 WBC ABG pO2 (83-108) mmHg Chloride (98-107) mmol/L BUN (7-17) mg/dL Creatinine (0.52-1.04) mg/dL Glucose (74-99) mg/dL POC Glucose (mg/dL) 153 H 151 H 151 H (75-99) mg/dL Calcium (8.4-10.2) mg/dL Ionized Calcium Luz Elena (4.5-5.3) mg/dL Magnesium (1.6-2.3) mg/dL AST (14-36) U/L ALT (9-52) U/L Total Protein (6.3-8.2) g/dL Albumin (3.5-5.0) g/dL 03/07/17 03/07/17 03/07/17 Range/Units 11:05 11:59 13:07 WBC (3.8-10.6) k/uL RBC (3.80-5.40) m/uL Hgb (11.4-16.0) gm/dL Hct (34.0-46.0) % MCV (80.0-100.0) fL MCH (25.0-35.0) pg RDW (11.5-15.5) % Plt Count (150-450) k/uL Neutrophils # (Manual) (1.3-7.7) k/uL Nucleated RBCs (0-0) /100 WBC ABG pO2 (83-108) mmHg Chloride (98-107) mmol/L BUN (7-17) mg/dL Creatinine (0.52-1.04) mg/dL Glucose (74-99) mg/dL POC Glucose (mg/dL) 150 H 144 H 135 H (75-99) mg/dL Calcium (8.4-10.2) mg/dL Ionized Calcium Luz Elena (4.5-5.3) mg/dL Magnesium (1.6-2.3) mg/dL AST (14-36) U/L ALT (9-52) U/L Total Protein (6.3-8.2) g/dL Albumin (3.5-5.0) g/dL 03/07/17 03/07/17 03/07/17 Range/Units 13:53 14:56 16:11 WBC (3.8-10.6) k/uL RBC (3.80-5.40) m/uL Hgb (11.4-16.0) gm/dL Hct (34.0-46.0) % MCV (80.0-100.0) fL MCH (25.0-35.0) pg RDW (11.5-15.5) % Plt Count (150-450) k/uL Neutrophils # (Manual) (1.3-7.7) k/uL Nucleated RBCs (0-0) /100 WBC ABG pO2 (83-108) mmHg Chloride (98-107) mmol/L BUN (7-17) mg/dL Creatinine (0.52-1.04) mg/dL Glucose (74-99) mg/dL POC Glucose (mg/dL) 130 H 130 H 120 H (75-99) mg/dL Calcium (8.4-10.2) mg/dL Ionized Calcium Luz Elena (4.5-5.3) mg/dL Magnesium (1.6-2.3) mg/dL AST (14-36) U/L ALT (9-52) U/L Total Protein (6.3-8.2) g/dL Albumin (3.5-5.0) g/dL 03/07/17 03/07/17 03/07/17 Range/Units 17:01 18:14 19:03 WBC (3.8-10.6) k/uL RBC (3.80-5.40) m/uL Hgb (11.4-16.0) gm/dL Hct (34.0-46.0) % MCV (80.0-100.0) fL MCH (25.0-35.0) pg RDW (11.5-15.5) % Plt Count (150-450) k/uL Neutrophils # (Manual) (1.3-7.7) k/uL Nucleated RBCs (0-0) /100 WBC ABG pO2 (83-108) mmHg Chloride (98-107) mmol/L BUN (7-17) mg/dL Creatinine (0.52-1.04) mg/dL Glucose (74-99) mg/dL POC Glucose (mg/dL) 119 H 112 H 114 H (75-99) mg/dL Calcium (8.4-10.2) mg/dL Ionized Calcium Luz Elena (4.5-5.3) mg/dL Magnesium (1.6-2.3) mg/dL AST (14-36) U/L ALT (9-52) U/L Total Protein (6.3-8.2) g/dL Albumin (3.5-5.0) g/dL 03/07/17 03/07/17 03/07/17 Range/Units 19:47 20:55 23:14 WBC (3.8-10.6) k/uL RBC (3.80-5.40) m/uL Hgb (11.4-16.0) gm/dL Hct (34.0-46.0) % MCV (80.0-100.0) fL MCH (25.0-35.0) pg RDW (11.5-15.5) % Plt Count (150-450) k/uL Neutrophils # (Manual) (1.3-7.7) k/uL Nucleated RBCs (0-0) /100 WBC ABG pO2 (83-108) mmHg Chloride (98-107) mmol/L BUN (7-17) mg/dL Creatinine (0.52-1.04) mg/dL Glucose (74-99) mg/dL POC Glucose (mg/dL) 142 H 134 H 123 H (75-99) mg/dL Calcium (8.4-10.2) mg/dL Ionized Calcium Luz Elena (4.5-5.3) mg/dL Magnesium (1.6-2.3) mg/dL AST (14-36) U/L ALT (9-52) U/L Total Protein (6.3-8.2) g/dL Albumin (3.5-5.0) g/dL 03/08/17 03/08/17 03/08/17 Range/Units 00:09 02:19 04:05 WBC (3.8-10.6) k/uL RBC (3.80-5.40) m/uL Hgb (11.4-16.0) gm/dL Hct (34.0-46.0) % MCV (80.0-100.0) fL MCH (25.0-35.0) pg RDW (11.5-15.5) % Plt Count (150-450) k/uL Neutrophils # (Manual) (1.3-7.7) k/uL Nucleated RBCs (0-0) /100 WBC ABG pO2 (83-108) mmHg Chloride (98-107) mmol/L BUN (7-17) mg/dL Creatinine (0.52-1.04) mg/dL Glucose (74-99) mg/dL POC Glucose (mg/dL) 119 H 106 H 115 H (75-99) mg/dL Calcium (8.4-10.2) mg/dL Ionized Calcium Luz Elena (4.5-5.3) mg/dL Magnesium (1.6-2.3) mg/dL AST (14-36) U/L ALT (9-52) U/L Total Protein (6.3-8.2) g/dL Albumin (3.5-5.0) g/dL 03/08/17 03/08/17 03/08/17 Range/Units 04:30 04:30 04:34 WBC 11.7 H (3.8-10.6) k/uL RBC 3.43 L (3.80-5.40) m/uL Hgb 8.1 L (11.4-16.0) gm/dL Hct 25.9 L (34.0-46.0) % MCV 75.5 L (80.0-100.0) fL MCH 23.7 L (25.0-35.0) pg RDW 24.7 H (11.5-15.5) % Plt Count 148 L (150-450) k/uL Neutrophils # (Manual) 9.4 H (1.3-7.7) k/uL Nucleated RBCs 9 H (0-0) /100 WBC ABG pO2 76 L (83-108) mmHg Chloride 111 H (98-107) mmol/L BUN 44 H (7-17) mg/dL Creatinine 1.59 H (0.52-1.04) mg/dL Glucose 111 H (74-99) mg/dL POC Glucose (mg/dL) (75-99) mg/dL Calcium 7.0 L (8.4-10.2) mg/dL Ionized Calcium Luz Elena 4.4 L (4.5-5.3) mg/dL Magnesium 2.5 H (1.6-2.3) mg/dL AST 96 H (14-36) U/L ALT 102 H (9-52) U/L Total Protein 4.7 L (6.3-8.2) g/dL Albumin 2.7 L (3.5-5.0) g/dL 03/08/17 03/08/17 Range/Units 06:19 06:55 WBC (3.8-10.6) k/uL RBC (3.80-5.40) m/uL Hgb (11.4-16.0) gm/dL Hct (34.0-46.0) % MCV (80.0-100.0) fL MCH (25.0-35.0) pg RDW (11.5-15.5) % Plt Count (150-450) k/uL Neutrophils # (Manual) (1.3-7.7) k/uL Nucleated RBCs (0-0) /100 WBC ABG pO2 (83-108) mmHg Chloride (98-107) mmol/L BUN (7-17) mg/dL Creatinine (0.52-1.04) mg/dL Glucose (74-99) mg/dL POC Glucose (mg/dL) 133 H 128 H (75-99) mg/dL Calcium (8.4-10.2) mg/dL Ionized Calcium Luz Elena (4.5-5.3) mg/dL Magnesium (1.6-2.3) mg/dL AST (14-36) U/L ALT (9-52) U/L Total Protein (6.3-8.2) g/dL Albumin (3.5-5.0) g/dL Assessment and Plan (1) Status post aortic valve replacement Status: Acute (2) Bicuspid aortic valve Status: Acute (3) Diabetes mellitus, insulin dependent (IDDM), controlled Status: Acute (4) Hypertension Status: Acute Plan: Continue to follow. Possible discontinuation of chest tubes today. Continue appropriate progress for support. See orders otherwise.
[2017-03-08 08:02] LABS: Glucose,Whole Blood 130 mg/dL (75-99)
--- NOTE | 2017-03-08 08:27 | PN ---
Critical Care Time: 37 minutes. This is a 76-year-old female who is postop day #3, status post aortic valve replacement. Her primary is Dr. Carlos Tabor. She has history of hypertension, diabetes, hyperlipidemia, asthma, CVA, pericarditis. The patient has been very slow to wean from mechanical ventilation. Currently she is on the assist control mode rate of 24, tidal volume 350, FIO2 60%, PEEP of 10, blood gases show a PO2 of 70, PCO2 of 33, pH 7.43. This is consistent with relative hypoxemia and mixed acid base disturbance including respiratory alkalosis and metabolic acidosis. She is on a number of different drips including 0.9 at 50 mL an hour, Primacor at 0.1 mcg/kg per minute, Propofol at 40 mcg/kg per minute , insulin drip at 6 units an hour. Levophed and Cleviprex have been on and off depending on whether or not her blood pressure is low or high respectively and Vital AF at 10. I am not sure what her goal is. The patient had a right chest tube placed yesterday. It was done by Dr. Heart. The amount of fluid that was evacuated was relatively small and a lot of clots did come out. Chest x-ray in my opinion is slightly improved. Current vital signs include temperature of 96.6, heart rate 80, respiratory rate is 24, blood pressure is 151/57 and saturation 98% on 60% and 10 of PEEP. Appears in no acute distress. Currently sedated. HEENT examination is grossly unremarkable. Mucous membranes are moist. There is an orally placed endotracheal tube and NG tube. Neck supple. Full range of motion. Cardiovascular examination reveals regular rhythm rate. Heart sounds are distant. S1, S2 normal. The lungs reveal relatively clear breath sounds. A few scattered rhonchi. No wheezes or crackles. Abdomen soft, bowel sounds are heard. Extremities are intact. No cyanosis, clubbing or edema. Skin without rash. Neurologic examination cannot be adequately performed. Currently labs are reviewed. White count 12.9, hemoglobin 8.1, hematocrit 24.8, platelet count 123,000. PT, INR was 10.5 and 1. Sodium 141, potassium 3.8, chloride 109, CO2 is 23, BUN and creatinine 36 and 1.91. The rest of the labs are okay. Chest x-ray as I mentioned shows improvement. Medications are reviewed. Microbiology up to this point has all been negative. ASSESSMENT: 1. Severe bicuspid aortic stenosis status post aortic valve replacement using a number 25 mm Magna Ease bioprosthetic valve, postop day #3. 2. Postoperative mediastinal bleeding with hypotension requiring a trip back to the operating room. The patient did receive 4 units of PRBC, 2 units of FFP and 1 unit of platelets. 3. Hypoxemic respiratory failure requiring prolonged intubation and mechanical ventilation with failure to wean. 4. Diabetes mellitus. 5. Hyperlipidemia. 6. History of hypertension. 7. History of cerebrovascular accident/transient ischemic attack. 8. History of asthma. PLAN: The patients overall situation is quite significant. We will continue to follow closely. Chest tube was placed yesterday by Dr. Heart. The patient had issues with hemodynamics, either hypertensive or hypotensive. Nurses going back and forth with Levophed, observation, or using Cleviprex when there is hypertension. Microbiology is all negative. Medications are reviewed. No additional medications are made. Prognosis is guarded. MTDD
[2017-03-08] MEDS: PROPOFOL 1,000 MG/100 ML VIAL IV SCH ×2 (08:42→19:04)
[2017-03-08] MEDS: ASPIRIN 325 MG TAB PO SCH (08:49)
[2017-03-08] MEDS: ATORVASTATIN 40 MG TAB PO SCH (08:49)
[2017-03-08] MEDS: CLOPIDOGREL 75 MG TAB PO SCH (08:51)
[2017-03-08] MEDS: CHLORHEXIDINE GLUCONATE 15 ML CUP MUCOUS MEM SCH ×2 (08:51→22:13)
[2017-03-08] MEDS: PANTOPRAZOLE 40 MG/10 ML VIAL IVP SCH (08:51)
[2017-03-08] MEDS ORDERED: CALCIUM GLUCONATE 2,000 MG in SODIUM CHLORIDE 0.9% 100 ML IVPB ONE (09:00)
[2017-03-08 09:04] LABS: Glucose,Whole Blood 120 mg/dL (75-99)
[2017-03-08] MEDS ORDERED: FUROSEMIDE 10 MG/ML 4 ML VIAL IV STA (09:08)
--- NOTE | 2017-03-08 09:18 | P.PN ---
Subjective Principal diagnosis: Status post aVR This is a pleasant 76-year-old female patient who sees Dr. STELLA Lazaro as an outpatient who was diagnosed recently with symptomatic severe aortic stenosis secondary to bicuspid aortic valve. The patient underwent aVR using a bioprosthetic aortic valve. Subsequently she developed bleeding and she was taken to the OR again. Currently the patient is intubated and she is not ready to wean yet. Hemodynamically she seems to be doing better and she is off Levophed and of Primacor. Now she has underlying rhythm which seems to be sinus rhythm with first-degree AV block. We'll continue the current medical treatment was dual antiplatelet and continue holding any AV don daysi agents at this point. Objective - Vital Signs Vital signs: Vital Signs Temp 96.8 F L 03/07/17 16:00 Pulse 66 03/08/17 09:00 Resp 30 H 03/08/17 09:00 BP 122/53 03/07/17 13:00 Pulse Ox 97 03/08/17 09:00 Intake & Output 03/07/17 03/08/17 03/08/17 18:59 06:59 18:59 Intake Total 937.694 881.524 328.678 Output Total 675 1000 149 Balance 262.694 -118.476 179.678 Weight 88.8 kg Intake: IV 550 650 148 Sodium Chloride 0.9% 1, 550 650 90 000 ml @ 20 mls/hr IV . Q24H [facility] Rx#:[id number] cardiac output 40 pressure bag 18 Intake, IV Titration 357.694 191.524 120.678 Amount Calcium Gluconate 2,000 100 mg In Sodium Chloride 0.9 % 100 ml @ 100 mls/hr IVPB ONCE ONE Rx#: [id number] Clevidipine Butyrate 25 4.133 mg In Empty Bag 1 bag @ 1 MG/HR 2 mls/hr IV .Q24H [facility] Rx#:[id number] Insulin Regular 100 unit 88.425 55.612 20.678 In Sodium Chloride 0.9% 100 ml @ Per Protocol IV .Q0M [facility] Rx#:[id number] Milrinone-D5w Pmx 20 mg 93.733 23.1 In Dextrose/Water 1 100ml .bag @ 0.1 MCG/KG/MIN 2. 25 mls/hr IV .Q24H [facility] Rx #:[id number] Norepinephrin 4 mg-0.9% 0.625 12.812 Ns Pmx 4 mg In 250 ml @ Titrate IV .Q0M [facility] Rx#: [id number] Propofol 1,000 mg In 100 170.778 100 ml @ Titrate IV .Q0M [facility] Rx#:[id number] Tube Feeding 30 40 60 Output: Chest Tube Drainage 120 120 54 Chest Tube Right Lateral 15 0 4 Chest Left Lateral Chest 35 60 0 Mediastinal x 2 70 60 50 Urine 555 880 95 Other: Voiding Method Indwelling Catheter Indwelling Catheter ABP, PAP, CO, CI - Last Documented Arterial Blood Pressure 131/59 Pulmonary Artery Pressure 43/28 Cardiac Output 3.8 Cardiac Index 2.2 - Constitutional General appearance: Present: no acute distress - Respiratory Respiratory: bilateral: diminished - Cardiovascular Rhythm: regular Heart sounds: normal: S1, S2 - Labs CBC & Chem 7: 03/08/17 04:30 03/08/17 04:30 Labs: Abnormal Lab Results - Last 24 Hours (Table) 03/07/17 03/07/17 03/07/17 Range/Units 10:01 11:05 11:59 WBC (3.8-10.6) k/uL RBC (3.80-5.40) m/uL Hgb (11.4-16.0) gm/dL Hct (34.0-46.0) % MCV (80.0-100.0) fL MCH (25.0-35.0) pg RDW (11.5-15.5) % Plt Count (150-450) k/uL Neutrophils # (Manual) (1.3-7.7) k/uL Nucleated RBCs (0-0) /100 WBC ABG pO2 (83-108) mmHg Chloride (98-107) mmol/L BUN (7-17) mg/dL Creatinine (0.52-1.04) mg/dL Glucose (74-99) mg/dL POC Glucose (mg/dL) 151 H 150 H 144 H (75-99) mg/dL Calcium (8.4-10.2) mg/dL Ionized Calcium Luz Elena (4.5-5.3) mg/dL Magnesium (1.6-2.3) mg/dL AST (14-36) U/L ALT (9-52) U/L Total Protein (6.3-8.2) g/dL Albumin (3.5-5.0) g/dL 03/07/17 03/07/17 03/07/17 Range/Units 13:07 13:53 14:56 WBC (3.8-10.6) k/uL RBC (3.80-5.40) m/uL Hgb (11.4-16.0) gm/dL Hct (34.0-46.0) % MCV (80.0-100.0) fL MCH (25.0-35.0) pg RDW (11.5-15.5) % Plt Count (150-450) k/uL Neutrophils # (Manual) (1.3-7.7) k/uL Nucleated RBCs (0-0) /100 WBC ABG pO2 (83-108) mmHg Chloride (98-107) mmol/L BUN (7-17) mg/dL Creatinine (0.52-1.04) mg/dL Glucose (74-99) mg/dL POC Glucose (mg/dL) 135 H 130 H 130 H (75-99) mg/dL Calcium (8.4-10.2) mg/dL Ionized Calcium Luz Elena (4.5-5.3) mg/dL Magnesium (1.6-2.3) mg/dL AST (14-36) U/L ALT (9-52) U/L Total Protein (6.3-8.2) g/dL Albumin (3.5-5.0) g/dL 03/07/17 03/07/17 03/07/17 Range/Units 16:11 17:01 18:14 WBC (3.8-10.6) k/uL RBC (3.80-5.40) m/uL Hgb (11.4-16.0) gm/dL Hct (34.0-46.0) % MCV (80.0-100.0) fL MCH (25.0-35.0) pg RDW (11.5-15.5) % Plt Count (150-450) k/uL Neutrophils # (Manual) (1.3-7.7) k/uL Nucleated RBCs (0-0) /100 WBC ABG pO2 (83-108) mmHg Chloride (98-107) mmol/L BUN (7-17) mg/dL Creatinine (0.52-1.04) mg/dL Glucose (74-99) mg/dL POC Glucose (mg/dL) 120 H 119 H 112 H (75-99) mg/dL Calcium (8.4-10.2) mg/dL Ionized Calcium Luz Elena (4.5-5.3) mg/dL Magnesium (1.6-2.3) mg/dL AST (14-36) U/L ALT (9-52) U/L Total Protein (6.3-8.2) g/dL Albumin (3.5-5.0) g/dL 03/07/17 03/07/17 03/07/17 Range/Units 19:03 19:47 20:55 WBC (3.8-10.6) k/uL RBC (3.80-5.40) m/uL Hgb (11.4-16.0) gm/dL Hct (34.0-46.0) % MCV (80.0-100.0) fL MCH (25.0-35.0) pg RDW (11.5-15.5) % Plt Count (150-450) k/uL Neutrophils # (Manual) (1.3-7.7) k/uL Nucleated RBCs (0-0) /100 WBC ABG pO2 (83-108) mmHg Chloride (98-107) mmol/L BUN (7-17) mg/dL Creatinine (0.52-1.04) mg/dL Glucose (74-99) mg/dL POC Glucose (mg/dL) 114 H 142 H 134 H (75-99) mg/dL Calcium (8.4-10.2) mg/dL Ionized Calcium Luz Elena (4.5-5.3) mg/dL Magnesium (1.6-2.3) mg/dL AST (14-36) U/L ALT (9-52) U/L Total Protein (6.3-8.2) g/dL Albumin (3.5-5.0) g/dL 03/07/17 03/08/17 03/08/17 Range/Units 23:14 00:09 02:19 WBC (3.8-10.6) k/uL RBC (3.80-5.40) m/uL Hgb (11.4-16.0) gm/dL Hct (34.0-46.0) % MCV (80.0-100.0) fL MCH (25.0-35.0) pg RDW (11.5-15.5) % Plt Count (150-450) k/uL Neutrophils # (Manual) (1.3-7.7) k/uL Nucleated RBCs (0-0) /100 WBC ABG pO2 (83-108) mmHg Chloride (98-107) mmol/L BUN (7-17) mg/dL Creatinine (0.52-1.04) mg/dL Glucose (74-99) mg/dL POC Glucose (mg/dL) 123 H 119 H 106 H (75-99) mg/dL Calcium (8.4-10.2) mg/dL Ionized Calcium Luz Elena (4.5-5.3) mg/dL Magnesium (1.6-2.3) mg/dL AST (14-36) U/L ALT (9-52) U/L Total Protein (6.3-8.2) g/dL Albumin (3.5-5.0) g/dL 03/08/17 03/08/17 03/08/17 Range/Units 04:05 04:30 04:30 WBC 11.7 H (3.8-10.6) k/uL RBC 3.43 L (3.80-5.40) m/uL Hgb 8.1 L (11.4-16.0) gm/dL Hct 25.9 L (34.0-46.0) % MCV 75.5 L (80.0-100.0) fL MCH 23.7 L (25.0-35.0) pg RDW 24.7 H (11.5-15.5) % Plt Count 148 L (150-450) k/uL Neutrophils # (Manual) 9.4 H (1.3-7.7) k/uL Nucleated RBCs 9 H (0-0) /100 WBC ABG pO2 (83-108) mmHg Chloride 111 H (98-107) mmol/L BUN 44 H (7-17) mg/dL Creatinine 1.59 H (0.52-1.04) mg/dL Glucose 111 H (74-99) mg/dL POC Glucose (mg/dL) 115 H (75-99) mg/dL Calcium 7.0 L (8.4-10.2) mg/dL Ionized Calcium Luz Elena 4.4 L (4.5-5.3) mg/dL Magnesium 2.5 H (1.6-2.3) mg/dL AST 96 H (14-36) U/L ALT 102 H (9-52) U/L Total Protein 4.7 L (6.3-8.2) g/dL Albumin 2.7 L (3.5-5.0) g/dL 03/08/17 03/08/17 03/08/17 Range/Units 04:34 06:19 06:55 WBC (3.8-10.6) k/uL RBC (3.80-5.40) m/uL Hgb (11.4-16.0) gm/dL Hct (34.0-46.0) % MCV (80.0-100.0) fL MCH (25.0-35.0) pg RDW (11.5-15.5) % Plt Count (150-450) k/uL Neutrophils # (Manual) (1.3-7.7) k/uL Nucleated RBCs (0-0) /100 WBC ABG pO2 76 L (83-108) mmHg Chloride (98-107) mmol/L BUN (7-17) mg/dL Creatinine (0.52-1.04) mg/dL Glucose (74-99) mg/dL POC Glucose (mg/dL) 133 H 128 H (75-99) mg/dL Calcium (8.4-10.2) mg/dL Ionized Calcium Luz Elena (4.5-5.3) mg/dL Magnesium (1.6-2.3) mg/dL AST (14-36) U/L ALT (9-52) U/L Total Protein (6.3-8.2) g/dL Albumin (3.5-5.0) g/dL 03/08/17 03/08/17 Range/Units 08:01 09:03 WBC (3.8-10.6) k/uL RBC (3.80-5.40) m/uL Hgb (11.4-16.0) gm/dL Hct (34.0-46.0) % MCV (80.0-100.0) fL MCH (25.0-35.0) pg RDW (11.5-15.5) % Plt Count (150-450) k/uL Neutrophils # (Manual) (1.3-7.7) k/uL Nucleated RBCs (0-0) /100 WBC ABG pO2 (83-108) mmHg Chloride (98-107) mmol/L BUN (7-17) mg/dL Creatinine (0.52-1.04) mg/dL Glucose (74-99) mg/dL POC Glucose (mg/dL) 130 H 120 H (75-99) mg/dL Calcium (8.4-10.2) mg/dL Ionized Calcium Luz Elena (4.5-5.3) mg/dL Magnesium (1.6-2.3) mg/dL AST (14-36) U/L ALT (9-52) U/L Total Protein (6.3-8.2) g/dL Albumin (3.5-5.0) g/dL Assessment and Plan Plan: Assessment Status post aVR using bioprosthetic valve Acute respiratory failure Possible AV don dysfunction. Plan The patient has underlying rhythm which is sinus rhythm with first-degree AV block Continue dual antiplatelet therapy and statin Follow-up with the patient
[2017-03-08] MEDS ORDERED: LIDOCAINE 2% INJ 20 MG/ML (20 ML MDV) ONE (09:45)
[2017-03-08 10:16] LABS: Glucose,Whole Blood 148 mg/dL (75-99)
--- NOTE | 2017-03-08 10:45 | P.PN ---
Subjective Principal diagnosis: Bicuspid aortic valve with critical aortic stenosis, aortic insufficiency. CAD. Diabetes mellitus. Hypertension. History of TIAs, neuropathy, pericarditis, scoliosis, brain concussion. History of paroxysmal atrial fibrillation POD #4 elective aortic valve replacement with #25 mm magna ease bioprosthetic aortic valve, a clip ligation into left atrial appendage with a #35 mm AtriClip and intraoperative transesophageal echocardiogram. Postoperative acute blood loss anemia, a potential expected outcome of surgery. POD #4 reexploration of the chest, evacuation of clot, control of bleed. Postoperative hypoxic respiratory failure requiring prolonged mechanical ventilation, a potential expected outcome of surgery. POD #2 placement of right pleural chest tube for pleural effusion The patient continues to remain sedated on mechanical ventilation. Heart rhythm is in proved, no longer pacer dependent, currently in sinus rhythm with first-degree AV block. Blood pressure has remained stable off Cleviprex and Levophed. Objective - Vital Signs Vital signs: Vital Signs Temp 96.8 F L 03/07/ 16:00 Pulse 122 H 03/08/17 10:00 Resp 26 H 03/08/17 10:00 BP 122/53 03/07/17 13:00 Pulse Ox 97 03/08/17 10:00 Intake & Output 03/07/17 03/08/17 03/08/17 18:59 06:59 18:59 Intake Total 937.694 881.524 447.957 Output Total 675 1000 299 Balance 262.694 -118.476 148.957 Weight 88.8 kg Intake: IV 550 650 197 Sodium Chloride 0.9% 1, 550 650 130 000 ml @ 20 mls/hr IV . Q24H [facility] Rx#:[id number] cardiac output 40 pressure bag 27 Intake, IV Titration 357.694 191.524 150.957 Amount Calcium Gluconate 2,000 100 mg In Sodium Chloride 0.9 % 100 ml @ 100 mls/hr IVPB ONCE ONE Rx#: [id number] Clevidipine Butyrate 25 4.133 mg In Empty Bag 1 bag @ 1 MG/HR 2 mls/hr IV .Q24H [facility] Rx#:[id number] Insulin Regular 100 unit 88.425 55.612 24.415 In Sodium Chloride 0.9% 100 ml @ Per Protocol IV .Q0M [facility] Rx#:[id number] Milrinone-D5w Pmx 20 mg 93.733 23.1 In Dextrose/Water 1 100ml .bag @ 0.1 MCG/KG/MIN 2. 25 mls/hr IV .Q24H [facility] Rx #:[id number] Norepinephrin 4 mg-0.9% 0.625 12.812 Ns Pmx 4 mg In 250 ml @ Titrate IV .Q0M [facility] Rx#: [id number] Propofol 1,000 mg In 100 170.778 100 26.542 ml @ Titrate IV .Q0M [facility] Rx#:[id number] Tube Feeding 30 40 100 Output: Chest Tube Drainage 120 120 54 Chest Tube Right Lateral 15 0 4 Chest Left Lateral Chest 35 60 0 Mediastinal x 2 70 60 50 Urine 555 880 245 Other: Voiding Method Indwelling Catheter Indwelling Catheter Indwelling Catheter ABP, PAP, CO, CI - Last Documented Arterial Blood Pressure 133/67 Pulmonary Artery Pressure 42/31 Cardiac Output 3.8 Cardiac Index 2.2 - Constitutional General appearance: Present: no acute distress - Respiratory Details: Lungs sounds diminished bilaterally with coarse breath sounds in the bases. Respirations even, nonlabored on mechanical ventilation. Current settings assist control mode, FiO2 60%, tidal volume 350, PEEP 10, respiratory rate 24. Right pleural chest tube to -20 cm wall suction, no drainage in the last 24 hours and the chest tube, however multiple dressing changes for leakage of serous fluid around the chest tube. Left pleural chest tube to -20 cm wall suction, 60 mL serous drainage overnight, 270 mL in the last 24 hours. Mediastinal chest tube to -20 cm wall suction, 40 mL serous drainage overnight, 150 mL the last 24 hours. No air leaks present. - Cardiovascular Details: S1, S2 present. Regular rate and rhythm, sinus rhythm with first-degree AV block. AV pacemaker wires present, connected to generator, DDD mode with backup rate 50 bpm. Sternum stable. Right internal jugular Cordis, right radial arterial line present. Heart hugger, teds, SCDs present. - Gastrointestinal Gastrointestinal Comment(s): Abdomen soft, nontender, nondistended. Active bowel sounds 4 quadrants. OG tube present. Tube feeding infusing. - Genitourinary Genitourinary Comment(s): Cuellar present draining clear, yellow urine. Output 50-100 mL/h. - Integumentary Integumentary Comment(s): Anterior chest incision well approximated with Dermabond dressing. - Neurologic Neurologic Comment(s): Sedated on mechanical ventilation. No purposeful movements. - Allied health notes Allied health notes reviewed: nursing - Labs CBC & Chem 7: 03/08/17 04:30 03/08/17 04:30 Labs: Abnormal Lab Results - Last 24 Hours (Table) 03/07/17 03/07/17 03/07/17 Range/Units 11:05 11:59 13:07 WBC (3.8-10.6) k/uL RBC (3.80-5.40) m/uL Hgb (11.4-16.0) gm/dL Hct (34.0-46.0) % MCV (80.0-100.0) fL MCH (25.0-35.0) pg RDW (11.5-15.5) % Plt Count (150-450) k/uL Neutrophils # (Manual) (1.3-7.7) k/uL Nucleated RBCs (0-0) /100 WBC ABG pO2 (83-108) mmHg Chloride (98-107) mmol/L BUN (7-17) mg/dL Creatinine (0.52-1.04) mg/dL Glucose (74-99) mg/dL POC Glucose (mg/dL) 150 H 144 H 135 H (75-99) mg/dL Calcium (8.4-10.2) mg/dL Ionized Calcium Luz Elena (4.5-5.3) mg/dL Magnesium (1.6-2.3) mg/dL AST (14-36) U/L ALT (9-52) U/L Total Protein (6.3-8.2) g/dL Albumin (3.5-5.0) g/dL 03/07/17 03/07/17 03/07/17 Range/Units 13:53 14:56 16:11 WBC (3.8-10.6) k/uL RBC (3.80-5.40) m/uL Hgb (11.4-16.0) gm/dL Hct (34.0-46.0) % MCV (80.0-100.0) fL MCH (25.0-35.0) pg RDW (11.5-15.5) % Plt Count (150-450) k/uL Neutrophils # (Manual) (1.3-7.7) k/uL Nucleated RBCs (0-0) /100 WBC ABG pO2 (83-108) mmHg Chloride (98-107) mmol/L BUN (7-17) mg/dL Creatinine (0.52-1.04) mg/dL Glucose (74-99) mg/dL POC Glucose (mg/dL) 130 H 130 H 120 H (75-99) mg/dL Calcium (8.4-10.2) mg/dL Ionized Calcium Luz Elena (4.5-5.3) mg/dL Magnesium (1.6-2.3) mg/dL AST (14-36) U/L ALT (9-52) U/L Total Protein (6.3-8.2) g/dL Albumin (3.5-5.0) g/dL 03/07/17 03/07/17 03/07/17 Range/Units 17:01 18:14 19:03 WBC (3.8-10.6) k/uL RBC (3.80-5.40) m/uL Hgb (11.4-16.0) gm/dL Hct (34.0-46.0) % MCV (80.0-100.0) fL MCH (25.0-35.0) pg RDW (11.5-15.5) % Plt Count (150-450) k/uL Neutrophils # (Manual) (1.3-7.7) k/uL Nucleated RBCs (0-0) /100 WBC ABG pO2 (83-108) mmHg Chloride (98-107) mmol/L BUN (7-17) mg/dL Creatinine (0.52-1.04) mg/dL Glucose (74-99) mg/dL POC Glucose (mg/dL) 119 H 112 H 114 H (75-99) mg/dL Calcium (8.4-10.2) mg/dL Ionized Calcium Luz Elena (4.5-5.3) mg/dL Magnesium (1.6-2.3) mg/dL AST (14-36) U/L ALT (9-52) U/L Total Protein (6.3-8.2) g/dL Albumin (3.5-5.0) g/dL 03/07/17 03/07/17 03/07/17 Range/Units 19:47 20:55 23:14 WBC (3.8-10.6) k/uL RBC (3.80-5.40) m/uL Hgb (11.4-16.0) gm/dL Hct (34.0-46.0) % MCV (80.0-100.0) fL MCH (25.0-35.0) pg RDW (11.5-15.5) % Plt Count (150-450) k/uL Neutrophils # (Manual) (1.3-7.7) k/uL Nucleated RBCs (0-0) /100 WBC ABG pO2 (83-108) mmHg Chloride (98-107) mmol/L BUN (7-17) mg/dL Creatinine (0.52-1.04) mg/dL Glucose (74-99) mg/dL POC Glucose (mg/dL) 142 H 134 H 123 H (75-99) mg/dL Calcium (8.4-10.2) mg/dL Ionized Calcium Luz Elena (4.5-5.3) mg/dL Magnesium (1.6-2.3) mg/dL AST (14-36) U/L ALT (9-52) U/L Total Protein (6.3-8.2) g/dL Albumin (3.5-5.0) g/dL 03/08/17 03/08/17 03/08/17 Range/Units 00:09 02:19 04:05 WBC (3.8-10.6) k/uL RBC (3.80-5.40) m/uL Hgb (11.4-16.0) gm/dL Hct (34.0-46.0) % MCV (80.0-100.0) fL MCH (25.0-35.0) pg RDW (11.5-15.5) % Plt Count (150-450) k/uL Neutrophils # (Manual) (1.3-7.7) k/uL Nucleated RBCs (0-0) /100 WBC ABG pO2 (83-108) mmHg Chloride (98-107) mmol/L BUN (7-17) mg/dL Creatinine (0.52-1.04) mg/dL Glucose (74-99) mg/dL POC Glucose (mg/dL) 119 H 106 H 115 H (75-99) mg/dL Calcium (8.4-10.2) mg/dL Ionized Calcium Luz Elena (4.5-5.3) mg/dL Magnesium (1.6-2.3) mg/dL AST (14-36) U/L ALT (9-52) U/L Total Protein (6.3-8.2) g/dL Albumin (3.5-5.0) g/dL 03/08/17 03/08/17 03/08/17 Range/Units 04:30 04:30 04:34 WBC 11.7 H (3.8-10.6) k/uL RBC 3.43 L (3.80-5.40) m/uL Hgb 8.1 L (11.4-16.0) gm/dL Hct 25.9 L (34.0-46.0) % MCV 75.5 L (80.0-100.0) fL MCH 23.7 L (25.0-35.0) pg RDW 24.7 H (11.5-15.5) % Plt Count 148 L (150-450) k/uL Neutrophils # (Manual) 9.4 H (1.3-7.7) k/uL Nucleated RBCs 9 H (0-0) /100 WBC ABG pO2 76 L (83-108) mmHg Chloride 111 H (98-107) mmol/L BUN 44 H (7-17) mg/dL Creatinine 1.59 H (0.52-1.04) mg/dL Glucose 111 H (74-99) mg/dL POC Glucose (mg/dL) (75-99) mg/dL Calcium 7.0 L (8.4-10.2) mg/dL Ionized Calcium Luz Elena 4.4 L (4.5-5.3) mg/dL Magnesium 2.5 H (1.6-2.3) mg/dL AST 96 H (14-36) U/L ALT 102 H (9-52) U/L Total Protein 4.7 L (6.3-8.2) g/dL Albumin 2.7 L (3.5-5.0) g/dL 03/08/17 03/08/17 03/08/17 Range/Units 06:19 06:55 08:01 WBC (3.8-10.6) k/uL RBC (3.80-5.40) m/uL Hgb (11.4-16.0) gm/dL Hct (34.0-46.0) % MCV (80.0-100.0) fL MCH (25.0-35.0) pg RDW (11.5-15.5) % Plt Count (150-450) k/uL Neutrophils # (Manual) (1.3-7.7) k/uL Nucleated RBCs (0-0) /100 WBC ABG pO2 (83-108) mmHg Chloride (98-107) mmol/L BUN (7-17) mg/dL Creatinine (0.52-1.04) mg/dL Glucose (74-99) mg/dL POC Glucose (mg/dL) 133 H 128 H 130 H (75-99) mg/dL Calcium (8.4-10.2) mg/dL Ionized Calcium Luz Elena (4.5-5.3) mg/dL Magnesium (1.6-2.3) mg/dL AST (14-36) U/L ALT (9-52) U/L Total Protein (6.3-8.2) g/dL Albumin (3.5-5.0) g/dL 03/08/17 03/08/17 Range/Units 09:03 10:14 WBC (3.8-10.6) k/uL RBC (3.80-5.40) m/uL Hgb (11.4-16.0) gm/dL Hct (34.0-46.0) % MCV (80.0-100.0) fL MCH (25.0-35.0) pg RDW (11.5-15.5) % Plt Count (150-450) k/uL Neutrophils # (Manual) (1.3-7.7) k/uL Nucleated RBCs (0-0) /100 WBC ABG pO2 (83-108) mmHg Chloride (98-107) mmol/L BUN (7-17) mg/dL Creatinine (0.52-1.04) mg/dL Glucose (74-99) mg/dL POC Glucose (mg/dL) 120 H 148 H (75-99) mg/dL Calcium (8.4-10.2) mg/dL Ionized Calcium Luz Elena (4.5-5.3) mg/dL Magnesium (1.6-2.3) mg/dL AST (14-36) U/L ALT (9-52) U/L Total Protein (6.3-8.2) g/dL Albumin (3.5-5.0) g/dL - Imaging and Cardiology Chest x-ray: report reviewed, image reviewed Assessment and Plan (1) History of TIA (transient ischemic attack) Status: Acute (2) Hyperlipidemia Status: Acute (3) Osteoarthritis Status: Acute (4) Acute blood loss as cause of postoperative anemia Status: Acute (5) Paroxysmal atrial fibrillation Status: Acute (6) Status post aortic valve replacement Status: Acute (7) Bicuspid aortic valve Status: Acute (8) Diabetes mellitus, insulin dependent (IDDM), controlled Status: Acute (9) Hypertension Status: Acute (10) Severe aortic stenosis Status: Acute Plan: 1. Continue aspirin, statin, Plavix. Beta blockers on hold currently. Will restart when able. 2. Patient just went into atrial fibrillation with rapid ventricular response. Amiodarone bolus and IV drip started per cardiology recommendations. 3. Wean O2 as tolerated. Ventilatory support per pulmonary services. 4. Lasix 40 mg IV push given 1 today. We'll discontinue right and mediastinal chest tubes. 5. PICC line to be placed. May discontinue [place]. 6. Calcium replacement today. 7. Dr. Ledesma consulted for possible permanent pacemaker placement. 8. Monitor daily labs, chest x-rays. 9. GI/DVT prophylaxis. 10. Insulin management per primary service. 11. More recommendations as patient progresses. Time with Patient: Greater than 30
[2017-03-08] MEDS ORDERED: LIDOCAINE 2% INJ 20 MG/ML SQ ONE (10:53)
[2017-03-08] MEDS ORDERED: DEXTROSE 5% IN WATER 100 ML with AMIODARONE 150 MG IV ONE (11:00)
[2017-03-08] MEDS ORDERED: AMIODARONE 450 MG in DEXTROSE 5% IN WATER 250 ML IV SCH ×2 (11:10)
--- NOTE | 2017-03-08 11:13 | XR ---
EXAMINATION TYPE: XR chest 1V portable DATE OF EXAM: 03/08/2017 COMPARISON: 03/08/2017 HISTORY: PICC line placement TECHNIQUE: Single frontal view of the chest is obtained. FINDINGS: Instrumentation is stable. Left-sided PICC line seen with the tip overlying the SVC. Cardi omegaly and atherosclerotic change with postsurgical changes. Catheter overlying the right upper abdo men is stable. Basilar subsegmental consolidation and tiny effusion stable. Could not exclude mild central venous co ngestion. IMPRESSION: 1. Basilar atelectasis or infiltrate stable. PICC line appears in good position. 2. ET tube remains approximately 1 cm above tavia.
--- NOTE | 2017-03-08 11:23 | IR ---
EXAMINATION TYPE: IR cvc insert >=5 years DATE OF EXAM: 03/08/2017 COMPARISON: NONE HISTORY: PICC line placement for intravenous therapy, arrhythmia, anemia FINDINGS: Maximal barrier technique was utilized. The skin overlying the vein was localized with ult rasound and noted to be compressible and patent by ultrasound. An ultrasound image was obtained and submitted on patient's chart. Sterile technique utilized with the ultrasound machine. The skin overly ing was prepped and draped and Lidocaine used for local anesthesia. A skin mark was made with a scal pel. Access was gained to the vein under direct ultrasound guidance with a 21-gauge needle and a 0.0 18 inch wire was advanced. Access site was dilated with a peel-away sheath and the catheter tailored to length. Catheter advanced centrally and a post procedure chest x-ray verified placement. Cathet er was fixed to the skin with suture and a sterile dressing placed. Hemostasis achieved and the cath eter was aspirated and flushed with sterile saline. The patient remained in stable condition. IMPRESSION: STATUS POST ULTRASOUND GUIDED PICC LINE PLACEMENT, READY FOR USE. THIS PROCEDURE WAS PER FORMED BY THE UNDERSIGNED.
[2017-03-08 11:25] LABS: Glucose,Whole Blood 150 mg/dL (75-99)
[2017-03-08 12:01] LABS: Glucose,Whole Blood 154 mg/dL (75-99)
--- NOTE | 2017-03-08 12:13 | PN ---
I am covering for Dr. Tabor. This 76-year-old woman who was admitted after aortic valve surgery for bicuspid aortic valve still on mechanical ventilation. The patient's sugars are all between the mid 150s and she is on units of insulin per hour. Otherwise, the patient mechanically ventilated. Dr. Denney and cardiothoracic surgery following the patient closely. On exam, pulse is 80, blood pressure 157/68, respirations 27, temperature 97.6, pulse ox 98% on 60% mechanical ventilation. Vent setting are noted. HEENT: Conjunctivae normal. NECK: No jugular venous distention. CARDIOVASCULAR: S1 and S2 muffled. RESPIRATORY: Breath sounds diminished at the bases. A few scattered rhonchi. ABDOMEN: Soft, nontender. LEGS: No edema. NERVOUS SYSTEM: The patient is sedated. Labs are glucose 135, 130. WBC 12.9, hemoglobin 8.1. ASSESSMENT: 1. Status post aortic valve replacement for bicuspid aortic valve and severe aortic stenosis. 2. Acute hypoxic respiratory failure, postoperatively. 3. Hyperlipidemia. 4. Diabetes mellitus type 2. 5. History of hypertension. 6. History of cerebrovascular accident and transient ischemic attack. RECOMMENDATIONS AND DISCUSSION: Recommend to continue current medications. Continue with monitoring and symptomatic treatment. Also at this time, I recommend continue with the current medications. Monitor blood sugars closely. Continue insulin drip. Further recommendations to follow. MTDD
--- NOTE | 2017-03-08 12:16 | P.PN ---
Subjective 76-year-old male patient is postop day #4 following aortic valve replacement. Patient also is known to have previous CVA, bronchial asthma, hyperlipidemia, diabetes and hypertension. Surgery was done for bicuspid aortic valve and the patient is status post aortic valve replacement, bioprosthetic valve. Postop, the patient developed some mediastinal bleeding with hypotension. Based on that the patient was taken back to the operating room to control the bleed and during the process the patient was given a total of 4 units of packed RBC, 2 units of fresh frozen plasma one unit of platelets. The patient was kept intubated on mechanical ventilator. As mentioned today's postop day #4 On today's evaluation, the patient remains on a mechanical ventilator. The patient is an assist-control mode of ventilation with a rate of 24, tidal volume 350, FiO2 of 60% and a PEEP of 10. She is intubated with a #8 ET tube. Chest x-ray from today shows adequate expansion of both lungs. Chest tubes are in place. ET tube is in place. She has some mild cardiomegaly. No sinus complaints or pleural effusions. No pneumothorax seen. The blood gases from this morning showed a pH of 7.38 with a pCO2 of 36 and pO2 of 76. Hemodynamically the patient is stable. The patient is producing adequate amount of urine output. The patient is on no pressors. The patient is on no clevidipine drip. Blood pressure is on under good control. The chest tubes are still in place. The patient has a right pleural and left pleural chest tube and 2 mediastinal chest tubes. All of them are showing minimal amount of drainage and the patient would have the mediastinal and the right sided chest tube pulled today. Platelet count improved and it's up to 148. Hemoglobin stable at 8.1. She is sedated with Diprivan. She is calm and comfortable. Objective - Vital Signs Vital signs: Vital Signs Temp 96.8 F L 03/07/17 16:00 Pulse 60 03/08/17 11:29 Resp 31 H 03/08/17 11:00 BP 122/53 03/07/17 13:00 Pulse Ox 96 03/08/17 11:00 Intake & Output 03/07/17 03/08/17 03/08/17 18:59 06:59 18:59 Intake Total 937.694 881.524 621.334 Output Total 675 1000 514 Balance 262.694 -118.476 107.334 Weight 88.8 kg Intake: IV 550 650 266 Sodium Chloride 0.9% 1, 550 650 170 000 ml @ 20 mls/hr IV . Q24H [facility] Rx#:[id number] cardiac output 60 pressure bag 36 Intake, IV Titration 357.694 191.524 155.334 Amount Calcium Gluconate 2,000 100 mg In Sodium Chloride 0.9 % 100 ml @ 100 mls/hr IVPB ONCE ONE Rx#: [id number] Clevidipine Butyrate 25 4.133 mg In Empty Bag 1 bag @ 1 MG/HR 2 mls/hr IV .Q24H [facility] Rx#:[id number] Insulin Regular 100 unit 88.425 55.612 28.792 In Sodium Chloride 0.9% 100 ml @ Per Protocol IV .Q0M [facility] Rx#:[id number] Milrinone-D5w Pmx 20 mg 93.733 23.1 In Dextrose/Water 1 100ml .bag @ 0.1 MCG/KG/MIN 2. 25 mls/hr IV .Q24H [facility] Rx #:[id number] Norepinephrin 4 mg-0.9% 0.625 12.812 Ns Pmx 4 mg In 250 ml @ Titrate IV .Q0M [facility] Rx#: [id number] Propofol 1,000 mg In 100 170.778 100 26.542 ml @ Titrate IV .Q0M [facility] Rx#:[id number] Tube Feeding 30 40 200 Output: Chest Tube Drainage 120 120 54 Chest Tube Right Lateral 15 0 4 Chest Left Lateral Chest 35 60 0 Mediastinal x 2 70 60 50 Urine 555 880 460 Other: Voiding Method Indwelling Catheter Indwelling Catheter Indwelling Catheter ABP, PAP, CO, CI - Last Documented Arterial Blood Pressure 144/59 Pulmonary Artery Pressure 43/32 Cardiac Output 3.9 Cardiac Index 2.3 - Exam Gen. appearance, the patient is calm and comfortable likely distress. Head exam was generally normal. There was no scleral icterus or corneal arcus. Mucous membranes were moist.Neck was supple and without jugular venous distension, thyromegaly, or carotid bruits. Carotids were easily palpable bilaterally. There was no adenopathy. The patient has a right IJ Cordis in place. Orogastric and orotracheal tube are also in place. Lungs are clear to auscultation. Diminished breath on the lung bases. The mediastinal and the pleural chest tubes are all in place. Heart sounds are regular, no rubs, no murmurs. Sternum stable clean and intact. Abdominal exam revealed normal bowel sounds. The abdomen was soft, non-tender, and without masses, organomegaly , or appreciable enlargement of the abdominal aorta.Examination of the extremities revealed easily palpable radial, femoral and pedal pulses. There was no cyanosis, clubbing or edema. - Labs CBC & Chem 7: 03/08/17 04:30 03/08/17 04:30 Labs: Abnormal Lab Results - Last 24 Hours (Table) 03/07/17 03/07/17 03/07/17 Range/Units 11:59 13:07 13:53 WBC (3.8-10.6) k/uL RBC (3.80-5.40) m/uL Hgb (11.4-16.0) gm/dL Hct (34.0-46.0) % MCV (80.0-100.0) fL MCH (25.0-35.0) pg RDW (11.5-15.5) % Plt Count (150-450) k/uL Neutrophils # (Manual) (1.3-7.7) k/uL Nucleated RBCs (0-0) /100 WBC ABG pO2 (83-108) mmHg Chloride (98-107) mmol/L BUN (7-17) mg/dL Creatinine (0.52-1.04) mg/dL Glucose (74-99) mg/dL POC Glucose (mg/dL) 144 H 135 H 130 H (75-99) mg/dL Calcium (8.4-10.2) mg/dL Ionized Calcium Luz Elena (4.5-5.3) mg/dL Magnesium (1.6-2.3) mg/dL AST (14-36) U/L ALT (9-52) U/L Total Protein (6.3-8.2) g/dL Albumin (3.5-5.0) g/dL 03/07/17 03/07/17 03/07/17 Range/Units 14:56 16:11 17:01 WBC (3.8-10.6) k/uL RBC (3.80-5.40) m/uL Hgb (11.4-16.0) gm/dL Hct (34.0-46.0) % MCV (80.0-100.0) fL MCH (25.0-35.0) pg RDW (11.5-15.5) % Plt Count (150-450) k/uL Neutrophils # (Manual) (1.3-7.7) k/uL Nucleated RBCs (0-0) /100 WBC ABG pO2 (83-108) mmHg Chloride (98-107) mmol/L BUN (7-17) mg/dL Creatinine (0.52-1.04) mg/dL Glucose (74-99) mg/dL POC Glucose (mg/dL) 130 H 120 H 119 H (75-99) mg/dL Calcium (8.4-10.2) mg/dL Ionized Calcium Luz Elena (4.5-5.3) mg/dL Magnesium (1.6-2.3) mg/dL AST (14-36) U/L ALT (9-52) U/L Total Protein (6.3-8.2) g/dL Albumin (3.5-5.0) g/dL 03/07/17 03/07/17 03/07/17 Range/Units 18:14 19:03 19:47 WBC (3.8-10.6) k/uL RBC (3.80-5.40) m/uL Hgb (11.4-16.0) gm/dL Hct (34.0-46.0) % MCV (80.0-100.0) fL MCH (25.0-35.0) pg RDW (11.5-15.5) % Plt Count (150-450) k/uL Neutrophils # (Manual) (1.3-7.7) k/uL Nucleated RBCs (0-0) /100 WBC ABG pO2 (83-108) mmHg Chloride (98-107) mmol/L BUN (7-17) mg/dL Creatinine (0.52-1.04) mg/dL Glucose (74-99) mg/dL POC Glucose (mg/dL) 112 H 114 H 142 H (75-99) mg/dL Calcium (8.4-10.2) mg/dL Ionized Calcium Luz Elena (4.5-5.3) mg/dL Magnesium (1.6-2.3) mg/dL AST (14-36) U/L ALT (9-52) U/L Total Protein (6.3-8.2) g/dL Albumin (3.5-5.0) g/dL 03/07/17 03/07/17 03/08/17 Range/Units 20:55 23:14 00:09 WBC (3.8-10.6) k/uL RBC (3.80-5.40) m/uL Hgb (11.4-16.0) gm/dL Hct (34.0-46.0) % MCV (80.0-100.0) fL MCH (25.0-35.0) pg RDW (11.5-15.5) % Plt Count (150-450) k/uL Neutrophils # (Manual) (1.3-7.7) k/uL Nucleated RBCs (0-0) /100 WBC ABG pO2 (83-108) mmHg Chloride (98-107) mmol/L BUN (7-17) mg/dL Creatinine (0.52-1.04) mg/dL Glucose (74-99) mg/dL POC Glucose (mg/dL) 134 H 123 H 119 H (75-99) mg/dL Calcium (8.4-10.2) mg/dL Ionized Calcium Luz Elena (4.5-5.3) mg/dL Magnesium (1.6-2.3) mg/dL AST (14-36) U/L ALT (9-52) U/L Total Protein (6.3-8.2) g/dL Albumin (3.5-5.0) g/dL 03/08/17 03/08/17 03/08/17 Range/Units 02:19 04:05 04:30 WBC (3.8-10.6) k/uL RBC (3.80-5.40) m/uL Hgb (11.4-16.0) gm/dL Hct (34.0-46.0) % MCV (80.0-100.0) fL MCH (25.0-35.0) pg RDW (11.5-15.5) % Plt Count (150-450) k/uL Neutrophils # (Manual) (1.3-7.7) k/uL Nucleated RBCs (0-0) /100 WBC ABG pO2 (83-108) mmHg Chloride 111 H (98-107) mmol/L BUN 44 H (7-17) mg/dL Creatinine 1.59 H (0.52-1.04) mg/dL Glucose 111 H (74-99) mg/dL POC Glucose (mg/dL) 106 H 115 H (75-99) mg/dL Calcium 7.0 L (8.4-10.2) mg/dL Ionized Calcium Luz Elena 4.4 L (4.5-5.3) mg/dL Magnesium 2.5 H (1.6-2.3) mg/dL AST 96 H (14-36) U/L ALT 102 H (9-52) U/L Total Protein 4.7 L (6.3-8.2) g/dL Albumin 2.7 L (3.5-5.0) g/dL 03/08/17 03/08/17 03/08/17 Range/Units 04:30 04:34 06:19 WBC 11.7 H (3.8-10.6) k/uL RBC 3.43 L (3.80-5.40) m/uL Hgb 8.1 L (11.4-16.0) gm/dL Hct 25.9 L (34.0-46.0) % MCV 75.5 L (80.0-100.0) fL MCH 23.7 L (25.0-35.0) pg RDW 24.7 H (11.5-15.5) % Plt Count 148 L (150-450) k/uL Neutrophils # (Manual) 9.4 H (1.3-7.7) k/uL Nucleated RBCs 9 H (0-0) /100 WBC ABG pO2 76 L (83-108) mmHg Chloride (98-107) mmol/L BUN (7-17) mg/dL Creatinine (0.52-1.04) mg/dL Glucose (74-99) mg/dL POC Glucose (mg/dL) 133 H (75-99) mg/dL Calcium (8.4-10.2) mg/dL Ionized Calcium Luz Elena (4.5-5.3) mg/dL Magnesium (1.6-2.3) mg/dL AST (14-36) U/L ALT (9-52) U/L Total Protein (6.3-8.2) g/dL Albumin (3.5-5.0) g/dL 03/08/17 03/08/17 03/08/17 Range/Units 06:55 08:01 09:03 WBC (3.8-10.6) k/uL RBC (3.80-5.40) m/uL Hgb (11.4-16.0) gm/dL Hct (34.0-46.0) % MCV (80.0-100.0) fL MCH (25.0-35.0) pg RDW (11.5-15.5) % Plt Count (150-450) k/uL Neutrophils # (Manual) (1.3-7.7) k/uL Nucleated RBCs (0-0) /100 WBC ABG pO2 (83-108) mmHg Chloride (98-107) mmol/L BUN (7-17) mg/dL Creatinine (0.52-1.04) mg/dL Glucose (74-99) mg/dL POC Glucose (mg/dL) 128 H 130 H 120 H (75-99) mg/dL Calcium (8.4-10.2) mg/dL Ionized Calcium Luz Elena (4.5-5.3) mg/dL Magnesium (1.6-2.3) mg/dL AST (14-36) U/L ALT (9-52) U/L Total Protein (6.3-8.2) g/dL Albumin (3.5-5.0) g/dL 03/08/17 03/08/17 Range/Units 10:14 11:24 WBC (3.8-10.6) k/uL RBC (3.80-5.40) m/uL Hgb (11.4-16.0) gm/dL Hct (34.0-46.0) % MCV (80.0-100.0) fL MCH (25.0-35.0) pg RDW (11.5-15.5) % Plt Count (150-450) k/uL Neutrophils # (Manual) (1.3-7.7) k/uL Nucleated RBCs (0-0) /100 WBC ABG pO2 (83-108) mmHg Chloride (98-107) mmol/L BUN (7-17) mg/dL Creatinine (0.52-1.04) mg/dL Glucose (74-99) mg/dL POC Glucose (mg/dL) 148 H 150 H (75-99) mg/dL Calcium (8.4-10.2) mg/dL Ionized Calcium Luz Elena (4.5-5.3) mg/dL Magnesium (1.6-2.3) mg/dL AST (14-36) U/L ALT (9-52) U/L Total Protein (6.3-8.2) g/dL Albumin (3.5-5.0) g/dL Assessment and Plan Plan: Assessment 1 aortic valve replacement for severe bicuspid aortic valve stenosis, patient is postop day #4 2 postoperative mediastinal bleeding, post reexploration and control of bleed and post transfusion with packed RBCs, FFP and platelets. Currently the chest tubes are all dry clean and intact and the mediastinal chest tubes and the right -sided chest tube will be removed 3 anemia, currently inactive in stable. The patient had significant drop in hemoglobin. postoperative bleeding is controlled for now 4 postoperative respiratory failure, expected outcome of surgery. 5 diabetes mellitus currently on insulin drip for blood sugar control 6 hypertension, BP is well-controlled 7 CVA/TIA, history of 8 bronchial asthma, history of 9 obesity 10 restrictive lung physiology on preop spirometry with an FEV1 of 56% of predicted. 11 thrombocytopenia, improving Plan Keep the patient sedated for now. Increase the tidal went to 450. The patient has a very compliant lung with increased and tidal volume and hoping to improve some of the Microatelectasis in conjunction with the PEEP. The FiO2 has been drop down to 40%. We'll gradually wean off the PEEP as long as the patient's pulse ox remains above 95%. Meanwhile, we'll continue rest of the supportive care. I reviewed the chest x-ray. A right pleural chest tube will be removed. The right pleural chest tube will be removed. Continue insulin drip for blood sugar control. Continue the enteral feeding for nutritional support. Monitor hemoglobin. We'll continue to follow make further recommendations of the weaning accordingly. Critically care evaluation, 32 minutes. Time with Patient: Greater than 30
[2017-03-08 13:25] LABS: Glucose,Whole Blood 156 mg/dL (75-99)
[2017-03-08] MEDS: METOPROLOL TARTRATE 12.5 MG TAB PO SCH ×2 (13:30→22:13)
[2017-03-08 14:38] LABS: Glucose,Whole Blood 157 mg/dL (75-99)
[2017-03-08] MEDS: LISINOPRIL 2.5 MG TAB PO SCH (15:30)
[2017-03-08 15:48] LABS: Glucose,Whole Blood 151 mg/dL (75-99)
--- NOTE | 2017-03-08 15:56 | P.PN ---
Progress Note - Text Right pleural and mediastinal chest tubes removed without incident, 4 x 4 gauze and dressing with Vaseline impregnated gauze placed over sites and secured with tape.
[2017-03-08] MEDS: CLEVIDIPINE BUTYRATE 25 MG in EMPTY BAG 1 BAG IV SCH (16:31)
[2017-03-08] MEDS: INSULIN REGULAR 100 UNIT in SODIUM CHLORIDE 0.9% 100 ML IV SCH (16:48)
[2017-03-08 16:53] LABS: Glucose,Whole Blood 122 mg/dL (75-99)
[2017-03-08 17:54] LABS: Glucose,Whole Blood 99 mg/dL (75-99)
[2017-03-08 19:04] LABS: Glucose,Whole Blood 116 mg/dL (75-99)
[2017-03-08 20:02] LABS: Glucose,Whole Blood 143 mg/dL (75-99)
[2017-03-08] MEDS: SODIUM CHLORIDE 0.9% 1,000 ML IV SCH ×3 (20:11→22:14)
[2017-03-08 21:25] LABS: Glucose,Whole Blood 128 mg/dL (75-99)
[2017-03-08] MEDS: SENNOSIDES-DOCUSATE SODIUM 1 EACH TAB PO SCH (22:14)
[2017-03-08 22:25] LABS: Glucose,Whole Blood 118 mg/dL (75-99)
[2017-03-09 00:29] LABS: Glucose,Whole Blood 113 mg/dL (75-99)
[2017-03-09 03:12] LABS: Glucose,Whole Blood 129 mg/dL (75-99)
[2017-03-09] MEDS: IPRATROPIUM-ALBUTEROL 3 ML NEB INHALATION SCH ×6 (03:21→23:24)
[2017-03-09 04:07] LABS: Glucose,Whole Blood 133 mg/dL (75-99)
[2017-03-09] MEDS: HEPARIN SODIUM,PORCINE 5,000 UNIT/ML 1 ML VIAL SQ SCH ×3 (05:31→22:12)
[2017-03-09] MEDS: PROPOFOL 1,000 MG/100 ML VIAL IV SCH ×2 (05:31→17:02)
[2017-03-09 05:33] LABS: ABG PCO2 29 mmHg (35-45); ABG PH 7.48 (7.35-7.45); ABG PO2 83 mmHg (83-108)
[2017-03-09 05:34] LABS: ABG Base Excess -1.7 mmol/L; ABG HCO3 21 mmol/L (21-25); ABG TCO2 22 mmol/L (19-24)
[2017-03-09 05:38] LABS: Glucose,Whole Blood 121 mg/dL (75-99)
[2017-03-09 05:51] LABS: Anisocytosis Marked; CHCM 31.9; Hypochromasia Slight; Microcytosis Marked; Poikilocytosis Slight
[2017-03-09 05:53] LABS: INR 1.1 (<1.2); Prothrombin Time 10.6 sec (9.0-12.0)
[2017-03-09 05:58] LABS: Ionized Calcium 4.7 mg/dL (4.5-5.3)
[2017-03-09 06:01] LABS: CH 23.7; HCT 26.2 % (34.0-46.0); HDW 3.67; HGB 8.5 gm/dL (11.4-16.0); MCH 24.2 pg (25.0-35.0); MCHC 32.4 g/dL (31.0-37.0); MCV 74.8 fL (80.0-100.0); Mean Platelet Volume 8.5; RDW 24.8 % (11.5-15.5); WBC (Perox) 9.85
[2017-03-09 06:06] LABS: Calcium 7.7 mg/dL (8.4-10.2); Magnesium 2.5 mg/dL (1.6-2.3); Phosphorous 3.2 mg/dL (2.5-4.5); Potassium 3.8 mmol/L (3.5-5.1); Total Bilirubin 1.2 mg/dL (0.2-1.3); Total Protein 4.6 g/dL (6.3-8.2)
[2017-03-09 06:19] LABS: Add Differential Manual Differential
[2017-03-09 06:24] LABS: Band Neutrophils % 0.5 %; Nucleated Red Blood Cells 5 /100 WBC (0-0); Total Cells Counted 200; WBC 9.6 k/uL (3.8-10.6)
[2017-03-09 06:25] LABS: Manual Review Performed; Polychromasia Present
[2017-03-09 06:26] LABS: Target Cells Present
[2017-03-09 06:59] LABS: Glucose,Whole Blood 110 mg/dL (75-99)
--- NOTE | 2017-03-09 06:59 | XR ---
EXAMINATION TYPE: XR chest 1V portable DATE OF EXAM: 03/09/2017 CLINICAL HISTORY: Difficulty breathing progress study. TECHNIQUE: Single AP portable upright view of the chest is obtained. COMPARISON: Chest x-ray from one day earlier FINDINGS: An endotracheal tube, orogastric tube, left-sided PICC line, and left-sided chest tube are all stable in appearance. There is interval removal of mediastinal drainage catheter, right internal jugular [place] catheter, and right basilar or upper abdominal chest tube. Sternotomy wires with metallic aortic valve and cardiac closure device are all redemonstrated. There is persistent cardiomegaly with atherosclerotic thoracic aorta. There is persistent chronic parenchym al change without suspicious new focal airspace opacity, pleural effusion, or pneumothorax seen bilat erally. IMPRESSION: Interval removal of right upper abdominal or pleural base drainage catheter and mediastin al drainage catheter. There is chronic parenchymal change and cardiomegaly with perhaps mild central vascular congestion that remains present. No sizable pneumothorax is evident.
[2017-03-09] MEDS ORDERED: POTASSIUM CHLORIDE ORAL LIQUID 40 MEQ/30 ML CUP NG-TUBE SCH (07:00)
[2017-03-09] MEDS: METOPROLOL TARTRATE 12.5 MG TAB PO SCH (08:10)
[2017-03-09] MEDS ORDERED: FUROSEMIDE 10 MG/ML 2 ML VIAL IV STA (08:23)
[2017-03-09 08:47] LABS: Glucose,Whole Blood 113 mg/dL (75-99)
[2017-03-09] MEDS: LISINOPRIL 2.5 MG TAB PO SCH (08:50)
[2017-03-09] MEDS: CLOPIDOGREL 75 MG TAB PO SCH (08:50)
[2017-03-09] MEDS: ASPIRIN 325 MG TAB PO SCH (08:50)
[2017-03-09] MEDS: CHLORHEXIDINE GLUCONATE 15 ML CUP MUCOUS MEM SCH ×2 (08:50→22:13)
[2017-03-09] MEDS: PANTOPRAZOLE 40 MG/10 ML VIAL IVP SCH (08:51)
--- NOTE | 2017-03-09 09:10 | P.PN ---
Subjective Principal diagnosis: Bicuspid aortic valve with critical aortic stenosis, aortic insufficiency. CAD. Diabetes mellitus. Hypertension. History of TIAs, neuropathy, pericarditis, scoliosis, brain concussion. History of paroxysmal atrial fibrillation POD #5 elective aortic valve replacement with #25 mm magna ease bioprosthetic aortic valve, a clip ligation into left atrial appendage with a #35 mm AtriClip and intraoperative transesophageal echocardiogram. Postoperative acute blood loss anemia, a potential expected outcome of surgery. POD #5 reexploration of the chest, evacuation of clot, control of bleed. Postoperative hypoxic respiratory failure requiring prolonged mechanical ventilation, a potential expected outcome of surgery. POD #3 placement of right pleural chest tube for pleural effusion The patient continues to remain sedated on mechanical ventilation. Right pleural and mediastinal chest tubes discontinued yesterday. PICC line placed today. Heart rhythm continues to bounce between sinus rhythm with a first- degree block and atrial fibrillation. Objective - Vital Signs Vital signs: Vital Signs Temp 99 F 03/09/17 04:00 Pulse 74 03/09/17 08:03 Resp 20 03/09/17 08:00 BP 122/53 03/07/17 13:00 Pulse Ox 93 L 03/09/17 08:00 Intake & Output 17 03/09/17 03/09/17 18:59 06:59 18:59 Intake Total 1430.248 767.477 131.915 Output Total 1159 890 75 Balance 271.248 -122.523 56.915 Weight 88.3 kg Intake: IV 489 312 36 Sodium Chloride 0.9% 1, 360 270 30 000 ml @ 20 mls/hr IV . Q24H [facility] Rx#:[id number] cardiac output 60 pressure bag 69 42 6 Intake, IV Titration 261.248 155.477 35.915 Amount Calcium Gluconate 2,000 100 mg In Sodium Chloride 0.9 % 100 ml @ 100 mls/hr IVPB ONCE ONE Rx#: [id number] Insulin Regular 100 unit 61.248 55.477 In Sodium Chloride 0.9% 100 ml @ Per Protocol IV .Q0M [facility] Rx#:[id number] Propofol 1,000 mg In 100 100.000 100 35.915 ml @ Titrate IV .Q0M [facility] Rx#:[id number] Tube Feeding 680 300 60 Output: Chest Tube Drainage 54 40 Chest Tube Right Lateral 4 Chest Left Lateral Chest 0 40 Mediastinal x 2 50 Urine 1105 850 75 Other: Voiding Method Indwelling Catheter Indwelling Catheter # Bowel Movements 1 ABP, PAP, CO, CI - Last Documented Arterial Blood Pressure 147/50 Pulmonary Artery Pressure 43/32 Cardiac Output 3.9 Cardiac Index 2.3 - Constitutional General appearance: Present: no acute distress - Respiratory Details: Lungs sounds diminished bilaterally. Respirations even, nonlabored on mechanical ventilation. Current settings assist control mode, FiO2 50%, tidal volume 450, respiratory rate 20, PEEP of 8. Left pleural chest tube to -20 cm wall suction, 30 mL serous drainage overnight, 80 mL in the last 24 hours. No air leak present. - Cardiovascular Details: S1, S2 present. Regular, intermittent irregular rhythm. Sinus rhythm with a first-degree AV block with intermittent atrial fibrillation. A/V epicardial pacemaker wires present, connected to generator, AAI mode with a backup rate 50 bpm. Sternum stable. Trace generalized edema still present. Palpable pulses bilaterally. Right radial arterial line, right internal jugular Cordis, left brachial PICC line present. - Gastrointestinal Gastrointestinal Comment(s): Abdomen soft, nontender, slightly distended. Very hypoactive bowel sounds 4 quadrants. Tolerating Glucerna tube feeding through OG tube at 60 mL per hour. Per RN no residual present. Large bowel movement 1 yesterday. - Genitourinary Genitourinary Comment(s): Cuellar present draining clear, yellow urine. Output 50-70 mL/h overnight. - Neurologic Neurologic Comment(s): Sedated on mechanical ventilation. Does spontaneously move her arms. - Allied health notes Allied health notes reviewed: nursing - Labs CBC & Chem 7: 03/09/17 05:37 03/09/17 05:37 Labs: Abnormal Lab Results - Last 24 Hours (Table) 03/08/17 03/08/17 03/08/17 Range/Units 09:03 10:14 11:24 RBC (3.80-5.40) m/uL Hgb (11.4-16.0) gm/dL Hct (34.0-46.0) % MCV (80.0-100.0) fL MCH (25.0-35.0) pg RDW (11.5-15.5) % Monocytes # (Manual) (0-1.0) k/uL Nucleated RBCs (0-0) /100 WBC ABG pH (7.35-7.45) ABG pCO2 (35-45) mmHg Chloride (98-107) mmol/L BUN (7-17) mg/dL Creatinine (0.52-1.04) mg/dL Glucose (74-99) mg/dL POC Glucose (mg/dL) 120 H 148 H 150 H (75-99) mg/dL Calcium (8.4-10.2) mg/dL Magnesium (1.6-2.3) mg/dL AST (14-36) U/L ALT (9-52) U/L Alkaline Phosphatase (38-126) U/L Total Protein (6.3-8.2) g/dL Albumin (3.5-5.0) g/dL 03/08/17 03/08/17 03/08/17 Range/Units 12:00 13:24 14:36 RBC (3.80-5.40) m/uL Hgb (11.4-16.0) gm/dL Hct (34.0-46.0) % MCV (80.0-100.0) fL MCH (25.0-35.0) pg RDW (11.5-15.5) % Monocytes # (Manual) (0-1.0) k/uL Nucleated RBCs (0-0) /100 WBC ABG pH (7.35-7.45) ABG pCO2 (35-45) mmHg Chloride (98-107) mmol/L BUN (7-17) mg/dL Creatinine (0.52-1.04) mg/dL Glucose (74-99) mg/dL POC Glucose (mg/dL) 154 H 156 H 157 H (75-99) mg/dL Calcium (8.4-10.2) mg/dL Magnesium (1.6-2.3) mg/dL AST (14-36) U/L ALT (9-52) U/L Alkaline Phosphatase (38-126) U/L Total Protein (6.3-8.2) g/dL Albumin (3.5-5.0) g/dL 03/08/17 03/08/17 03/08/17 Range/Units 15:46 16:51 18:58 RBC (3.80-5.40) m/uL Hgb (11.4-16.0) gm/dL Hct (34.0-46.0) % MCV (80.0-100.0) fL MCH (25.0-35.0) pg RDW (11.5-15.5) % Monocytes # (Manual) (0-1.0) k/uL Nucleated RBCs (0-0) /100 WBC ABG pH (7.35-7.45) ABG pCO2 (35-45) mmHg Chloride (98-107) mmol/L BUN (7-17) mg/dL Creatinine (0.52-1.04) mg/dL Glucose (74-99) mg/dL POC Glucose (mg/dL) 151 H 122 H 116 H (75-99) mg/dL Calcium (8.4-10.2) mg/dL Magnesium (1.6-2.3) mg/dL AST (14-36) U/L ALT (9-52) U/L Alkaline Phosphatase (38-126) U/L Total Protein (6.3-8.2) g/dL Albumin (3.5-5.0) g/dL 03/08/17 03/08/17 03/08/17 Range/Units 19:59 21:12 22:22 RBC (3.80-5.40) m/uL Hgb (11.4-16.0) gm/dL Hct (34.0-46.0) % MCV (80.0-100.0) fL MCH (25.0-35.0) pg RDW (11.5-15.5) % Monocytes # (Manual) (0-1.0) k/uL Nucleated RBCs (0-0) /100 WBC ABG pH (7.35-7.45) ABG pCO2 (35-45) mmHg Chloride (98-107) mmol/L BUN (7-17) mg/dL Creatinine (0.52-1.04) mg/dL Glucose (74-99) mg/dL POC Glucose (mg/dL) 143 H 128 H 118 H (75-99) mg/dL Calcium (8.4-10.2) mg/dL Magnesium (1.6-2.3) mg/dL AST (14-36) U/L ALT (9-52) U/L Alkaline Phosphatase (38-126) U/L Total Protein (6.3-8.2) g/dL Albumin (3.5-5.0) g/dL 03/09/17 03/09/17 03/09/17 Range/Units 00:26 03:09 04:05 RBC (3.80-5.40) m/uL Hgb (11.4-16.0) gm/dL Hct (34.0-46.0) % MCV (80.0-100.0) fL MCH (25.0-35.0) pg RDW (11.5-15.5) % Monocytes # (Manual) (0-1.0) k/uL Nucleated RBCs (0-0) /100 WBC ABG pH (7.35-7.45) ABG pCO2 (35-45) mmHg Chloride (98-107) mmol/L BUN (7-17) mg/dL Creatinine (0.52-1.04) mg/dL Glucose (74-99) mg/dL POC Glucose (mg/dL) 113 H 129 H 133 H (75-99) mg/dL Calcium (8.4-10.2) mg/dL Magnesium (1.6-2.3) mg/dL AST (14-36) U/L ALT (9-52) U/L Alkaline Phosphatase (38-126) U/L Total Protein (6.3-8.2) g/dL Albumin (3.5-5.0) g/dL 03/09/17 03/09/17 03/09/17 Range/Units 05:24 05:35 05:37 RBC (3.80-5.40) m/uL Hgb (11.4-16.0) gm/dL Hct (34.0-46.0) % MCV (80.0-100.0) fL MCH (25.0-35.0) pg RDW (11.5-15.5) % Monocytes # (Manual) (0-1.0) k/uL Nucleated RBCs (0-0) /100 WBC ABG pH 7.48 H (7.35-7.45) ABG pCO2 29 L (35-45) mmHg Chloride 114 H (98-107) mmol/L BUN 53 H (7-17) mg/dL Creatinine 1.40 H (0.52-1.04) mg/dL Glucose 114 H (74-99) mg/dL POC Glucose (mg/dL) 121 H (75-99) mg/dL Calcium 7.7 L (8.4-10.2) mg/dL Magnesium 2.5 H (1.6-2.3) mg/dL AST 155 H (14-36) U/L ALT 144 H (9-52) U/L Alkaline Phosphatase 282 H (38-126) U/L Total Protein 4.6 L (6.3-8.2) g/dL Albumin 2.5 L (3.5-5.0) g/dL 03/09/17 03/09/17 03/09/17 Range/Units 05:37 06:57 08:36 RBC 3.50 L (3.80-5.40) m/uL Hgb 8.5 L (11.4-16.0) gm/dL Hct 26.2 L (34.0-46.0) % MCV 74.8 L (80.0-100.0) fL MCH 24.2 L (25.0-35.0) pg RDW 24.8 H (11.5-15.5) % Monocytes # (Manual) 1.3 H (0-1.0) k/uL Nucleated RBCs 5 H (0-0) /100 WBC ABG pH (7.35-7.45) ABG pCO2 (35-45) mmHg Chloride (98-107) mmol/L BUN (7-17) mg/dL Creatinine (0.52-1.04) mg/dL Glucose (74-99) mg/dL POC Glucose (mg/dL) 110 H 113 H (75-99) mg/dL Calcium (8.4-10.2) mg/dL Magnesium (1.6-2.3) mg/dL AST (14-36) U/L ALT (9-52) U/L Alkaline Phosphatase (38-126) U/L Total Protein (6.3-8.2) g/dL Albumin (3.5-5.0) g/dL - Imaging and Cardiology Chest x-ray: report reviewed, image reviewed Assessment and Plan (1) History of TIA (transient ischemic attack) Status: Acute (2) Hyperlipidemia Status: Acute (3) Osteoarthritis Status: Acute (4) Acute blood loss as cause of postoperative anemia Status: Acute (5) Paroxysmal atrial fibrillation Status: Acute (6) Status post aortic valve replacement Status: Acute (7) Bicuspid aortic valve Status: Acute (8) Diabetes mellitus, insulin dependent (IDDM), controlled Status: Acute (9) Hypertension Status: Acute (10) Severe aortic stenosis Status: Acute Plan: 1. Continue aspirin, Plavix, beta daysi, JENNIFER inhibitor. Statin on hold secondary to elevated liver enzymes, will restart when able. 2. Discontinue Cordis. 3. Wean O2 as tolerated. Ventilatory support per pulmonary services. 4. Lasix 20 mg IV push given 1 today. 5. Check residual from OG tube every 4 hours. 6. Continue Cuellar for strict accurate intake and output. 7. Dr. Ledesma consulted for possible permanent pacemaker placement. 8. Monitor daily labs, chest x-rays. 9. GI/DVT prophylaxis. 10. Insulin management per primary service. 11. More recommendations as patient progresses. Time with Patient: Greater than 30
--- NOTE | 2017-03-09 09:31 | P.PN ---
Subjective 76-year-old male patient is postop day #4 following aortic valve replacement. Patient also is known to have previous CVA, bronchial asthma, hyperlipidemia, diabetes and hypertension. Surgery was done for bicuspid aortic valve and the patient is status post aortic valve replacement, bioprosthetic valve. Postop, the patient developed some mediastinal bleeding with hypotension. Based on that the patient was taken back to the operating room to control the bleed and during the process the patient was given a total of 4 units of packed RBC, 2 units of fresh frozen plasma one unit of platelets. The patient was kept intubated on mechanical ventilator. As mentioned today's postop day #4 On today's evaluation, the patient remains on a mechanical ventilator. The patient is an assist-control mode of ventilation with a rate of 24, tidal volume 350, FiO2 of 60% and a PEEP of 10. She is intubated with a #8 ET tube. Chest x-ray from today shows adequate expansion of both lungs. Chest tubes are in place. ET tube is in place. She has some mild cardiomegaly. No sinus complaints or pleural effusions. No pneumothorax seen. The blood gases from this morning showed a pH of 7.38 with a pCO2 of 36 and pO2 of 76. Hemodynamically the patient is stable. The patient is producing adequate amount of urine output. The patient is on no pressors. The patient is on no clevidipine drip. Blood pressure is on under good control. The chest tubes are still in place. The patient has a right pleural and left pleural chest tube and 2 mediastinal chest tubes. All of them are showing minimal amount of drainage and the patient would have the mediastinal and the right sided chest tube pulled today. Platelet count improved and it's up to 148. Hemoglobin stable at 8.1. She is sedated with Diprivan. She is calm and comfortable. On 03/09/2017 the patient is still being seen in follow-up. The patient has been quite stable overnight. The patient is on a mechanical ventilator and based on the most is a vent changes she is on a rate of 24, tidal volume 450, FiO2 has been down to 40% and I cut down the PEEP down to 8 and then down to 5 cm of water. The patient's chest x-ray showing cardiomegaly and there is a component of pulmonary vessel congestion. The patient was given 20 mg of IV Lasix this morning. She is producing adequate amount of urine output. The mediastinal and the right pleural chest tube has been removed. The patient has a left pleural chest tube only. No fever. No chills. Tolerating tube feeds. No other significant events overnight. Blood gases from this morning showed a pH of 7.48 with a pCO2 of 29 and a pO2 of 83. Hemoglobin stable at 8.5. Objective - Vital Signs Vital signs: Vital Signs Temp 99 F 03/09/17 04:00 Pulse 74 03/09/17 08:03 Resp 20 03/09/17 08:00 BP 122/53 03/07/17 13:00 Pulse Ox 93 L 03/09/17 08:00 Intake & Output 03/08/17 03/09/17 03/09/17 18:59 06:59 18:59 Intake Total 1430.248 767.477 168.925 Output Total 1159 890 160 Balance 271.248 -122.523 8.925 Weight 88.3 kg Intake: IV 489 312 72 Sodium Chloride 0.9% 1, 360 270 60 000 ml @ 20 mls/hr IV . Q24H [facility] Rx#:[id number] cardiac output 60 pressure bag 69 42 12 Intake, IV Titration 261.248 155.477 36.925 Amount Calcium Gluconate 2,000 100 mg In Sodium Chloride 0.9 % 100 ml @ 100 mls/hr IVPB ONCE ONE Rx#: [id number] Insulin Regular 100 unit 61.248 55.477 1.01 In Sodium Chloride 0.9% 100 ml @ Per Protocol IV .Q0M [facility] Rx#:[id number] Propofol 1,000 mg In 100 100.000 100 35.915 ml @ Titrate IV .Q0M [facility] Rx#:[id number] Tube Feeding 680 300 60 Output: Chest Tube Drainage 54 40 10 Chest Tube Right Lateral 4 Chest Left Lateral Chest 0 40 10 Mediastinal x 2 50 Urine 1105 850 150 Other: Voiding Method Indwelling Catheter Indwelling Catheter # Bowel Movements 1 ABP, PAP, CO, CI - Last Documented Arterial Blood Pressure 147/50 Pulmonary Artery Pressure 43/32 Cardiac Output 3.9 Cardiac Index 2.3 - Exam Gen. appearance, the patient is calm and comfortable likely distress. Head exam was generally normal. There was no scleral icterus or corneal arcus. Mucous membranes were moist.Neck was supple and without jugular venous distension, thyromegaly, or carotid bruits. Carotids were easily palpable bilaterally. There was no adenopathy. The patient has a right IJ Cordis in place. Orogastric and orotracheal tube are also in place. Lungs are clear to auscultation. Diminished breath on the lung bases. The mediastinal and the pleural chest tubes were removed. The patient has only a left pleural chest tube in place.. Heart sounds are regular, no rubs, no murmurs. Sternum stable clean and intact. Abdominal exam revealed normal bowel sounds. The abdomen was soft, non-tender, and without masses, organomegaly, or appreciable enlargement of the abdominal aorta.Examination of the extremities revealed easily palpable radial, femoral and pedal pulses. There was no cyanosis, clubbing or edema. - Labs CBC & Chem 7: 03/09/17 05:37 03/09/17 05:37 Labs: Abnormal Lab Results - Last 24 Hours (Table) 03/08/17 03/08/17 03/08/17 Range/Units 10:14 11:24 12:00 RBC (3.80-5.40) m/uL Hgb (11.4-16.0) gm/dL Hct (34.0-46.0) % MCV (80.0-100.0) fL MCH (25.0-35.0) pg RDW (11.5-15.5) % Monocytes # (Manual) (0-1.0) k/uL Nucleated RBCs (0-0) /100 WBC ABG pH (7.35-7.45) ABG pCO2 (35-45) mmHg Chloride (98-107) mmol/L BUN (7-17) mg/dL Creatinine (0.52-1.04) mg/dL Glucose (74-99) mg/dL POC Glucose (mg/dL) 148 H 150 H 154 H (75-99) mg/dL Calcium (8.4-10.2) mg/dL Magnesium (1.6-2.3) mg/dL AST (14-36) U/L ALT (9-52) U/L Alkaline Phosphatase (38-126) U/L Total Protein (6.3-8.2) g/dL Albumin (3.5-5.0) g/dL 03/08/17 03/08/17 03/08/17 Range/Units 13:24 14:36 15:46 RBC (3.80-5.40) m/uL Hgb (11.4-16.0) gm/dL Hct (34.0-46.0) % MCV (80.0-100.0) fL MCH (25.0-35.0) pg RDW (11.5-15.5) % Monocytes # (Manual) (0-1.0) k/uL Nucleated RBCs (0-0) /100 WBC ABG pH (7.35-7.45) ABG pCO2 (35-45) mmHg Chloride (98-107) mmol/L BUN (7-17) mg/dL Creatinine (0.52-1.04) mg/dL Glucose (74-99) mg/dL POC Glucose (mg/dL) 156 H 157 H 151 H (75-99) mg/dL Calcium (8.4-10.2) mg/dL Magnesium (1.6-2.3) mg/dL AST (14-36) U/L ALT (9-52) U/L Alkaline Phosphatase (38-126) U/L Total Protein (6.3-8.2) g/dL Albumin (3.5-5.0) g/dL 03/08/17 03/08/17 03/08/17 Range/Units 16:51 18:58 19:59 RBC (3.80-5.40) m/uL Hgb (11.4-16.0) gm/dL Hct (34.0-46.0) % MCV (80.0-100.0) fL MCH (25.0-35.0) pg RDW (11.5-15.5) % Monocytes # (Manual) (0-1.0) k/uL Nucleated RBCs (0-0) /100 WBC ABG pH (7.35-7.45) ABG pCO2 (35-45) mmHg Chloride (98-107) mmol/L BUN (7-17) mg/dL Creatinine (0.52-1.04) mg/dL Glucose (74-99) mg/dL POC Glucose (mg/dL) 122 H 116 H 143 H (75-99) mg/dL Calcium (8.4-10.2) mg/dL Magnesium (1.6-2.3) mg/dL AST (14-36) U/L ALT (9-52) U/L Alkaline Phosphatase (38-126) U/L Total Protein (6.3-8.2) g/dL Albumin (3.5-5.0) g/dL 03/08/17 03/08/17 03/09/17 Range/Units 21:12 22:22 00:26 RBC (3.80-5.40) m/uL Hgb (11.4-16.0) gm/dL Hct (34.0-46.0) % MCV (80.0-100.0) fL MCH (25.0-35.0) pg RDW (11.5-15.5) % Monocytes # (Manual) (0-1.0) k/uL Nucleated RBCs (0-0) /100 WBC ABG pH (7.35-7.45) ABG pCO2 (35-45) mmHg Chloride (98-107) mmol/L BUN (7-17) mg/dL Creatinine (0.52-1.04) mg/dL Glucose (74-99) mg/dL POC Glucose (mg/dL) 128 H 118 H 113 H (75-99) mg/dL Calcium (8.4-10.2) mg/dL Magnesium (1.6-2.3) mg/dL AST (14-36) U/L ALT (9-52) U/L Alkaline Phosphatase (38-126) U/L Total Protein (6.3-8.2) g/dL Albumin (3.5-5.0) g/dL 03/09/17 03/09/17 03/09/17 Range/Units 03:09 04:05 05:24 RBC (3.80-5.40) m/uL Hgb (11.4-16.0) gm/dL Hct (34.0-46.0) % MCV (80.0-100.0) fL MCH (25.0-35.0) pg RDW (11.5-15.5) % Monocytes # (Manual) (0-1.0) k/uL Nucleated RBCs (0-0) /100 WBC ABG pH 7.48 H (7.35-7.45) ABG pCO2 29 L (35-45) mmHg Chloride (98-107) mmol/L BUN (7-17) mg/dL Creatinine (0.52-1.04) mg/dL Glucose (74-99) mg/dL POC Glucose (mg/dL) 129 H 133 H (75-99) mg/dL Calcium (8.4-10.2) mg/dL Magnesium (1.6-2.3) mg/dL AST (14-36) U/L ALT (9-52) U/L Alkaline Phosphatase (38-126) U/L Total Protein (6.3-8.2) g/dL Albumin (3.5-5.0) g/dL 03/09/17 03/09/17 03/09/17 Range/Units 05:35 05:37 05:37 RBC 3.50 L (3.80-5.40) m/uL Hgb 8.5 L (11.4-16.0) gm/dL Hct 26.2 L (34.0-46.0) % MCV 74.8 L (80.0-100.0) fL MCH 24.2 L (25.0-35.0) pg RDW 24.8 H (11.5-15.5) % Monocytes # (Manual) 1.3 H (0-1.0) k/uL Nucleated RBCs 5 H (0-0) /100 WBC ABG pH (7.35-7.45) ABG pCO2 (35-45) mmHg Chloride 114 H (98-107) mmol/L BUN 53 H (7-17) mg/dL Creatinine 1.40 H (0.52-1.04) mg/dL Glucose 114 H (74-99) mg/dL POC Glucose (mg/dL) 121 H (75-99) mg/dL Calcium 7.7 L (8.4-10.2) mg/dL Magnesium 2.5 H (1.6-2.3) mg/dL AST 155 H (14-36) U/L ALT 144 H (9-52) U/L Alkaline Phosphatase 282 H (38-126) U/L Total Protein 4.6 L (6.3-8.2) g/dL Albumin 2.5 L (3.5-5.0) g/dL 03/09/17 03/09/17 Range/Units 06:57 08:36 RBC (3.80-5.40) m/uL Hgb (11.4-16.0) gm/dL Hct (34.0-46.0) % MCV (80.0-100.0) fL MCH (25.0-35.0) pg RDW (11.5-15.5) % Monocytes # (Manual) (0-1.0) k/uL Nucleated RBCs (0-0) /100 WBC ABG pH (7.35-7.45) ABG pCO2 (35-45) mmHg Chloride (98-107) mmol/L BUN (7-17) mg/dL Creatinine (0.52-1.04) mg/dL Glucose (74-99) mg/dL POC Glucose (mg/dL) 110 H 113 H (75-99) mg/dL Calcium (8.4-10.2) mg/dL Magnesium (1.6-2.3) mg/dL AST (14-36) U/L ALT (9-52) U/L Alkaline Phosphatase (38-126) U/L Total Protein (6.3-8.2) g/dL Albumin (3.5-5.0) g/dL Assessment and Plan Plan: Assessment 1 aortic valve replacement for severe bicuspid aortic valve stenosis, patient is postop day #5 2 postoperative mediastinal bleeding, post reexploration and control of bleed and post transfusion with packed RBCs, FFP and platelets. Currently the chest tubes are all dry clean and intact and the mediastinal chest tubes and the right -sided chest tube was removed and the patient only has a left pleural chest tube in place. 3 anemia, currently inactive in stable. The patient had significant drop in hemoglobin. postoperative bleeding is controlled for now 4 postoperative respiratory failure, expected outcome of surgery. The patient is being gradually weaned off the mechanical ventilator. I kept on the PEEP of 5, FiO2 is at 40%. We will do some weaning trials today if the patient is able to tolerate. 5 diabetes mellitus currently on insulin drip for blood sugar control 6 hypertension, BP is well-controlled 7 CVA/TIA, history of 8 bronchial asthma, history of 9 obesity 10 restrictive lung physiology on preop spirometry with an FEV1 of 56% of predicted. 11 thrombocytopenia, improving Plan Lasix 20 mg IV push. Cut down the PEEP down to 5. Stop sedation and check the patient's readiness to wean and assess weaning parameters and proceed accordingly. Hemodynamically stable. Hemoglobin stable. We'll make further recommendations based on the patient's progress. We'll monitor the output from the left-sided pleural chest tube. The rest of the medicine chest tube and the right-sided chest tube was removed. I'm hoping that I can extubate this patient within next 24-48 hours. We'll continue to follow. Is a critically care evaluation was done and morning and 30 minutes. Time with Patient: Greater than 30
--- NOTE | 2017-03-09 09:49 | P.PN ---
Subjective Principal diagnosis: Status post aVR This is a pleasant 76-year-old female patient who sees Dr. STLELA Lazaro as an outpatient who was diagnosed recently with symptomatic severe aortic stenosis secondary to bicuspid aortic valve. The patient underwent aVR using a bioprosthetic aortic valve. Subsequently she developed bleeding and she was taken to the OR again. Currently the patient is intubated and she is not ready to wean yet. Hemodynamically she seems to be doing better and she is off Levophed and of Primacor. Now she has underlying rhythm which seems to be sinus rhythm with first-degree AV block. We'll continue the current medical treatment was dual antiplatelet. She was started yesterday on metoprolol as well as lisinopril. Objective - Vital Signs Vital signs: Vital Signs Temp 99 F 03/09/17 04:00 Pulse 74 03/09/17 08:03 Resp 20 03/09/17 08:00 BP 122/53 03/07/17 13:00 Pulse Ox 93 L 03/09/17 08:00 Intake & Output 03/08/17 03/09/17 03/09/17 18:59 06:59 18:59 Intake Total 1430.248 767.477 228.925 Output Total 1159 890 160 Balance 271.248 -122.523 68.925 Weight 88.3 kg Intake: IV 489 312 72 Sodium Chloride 0.9% 1, 360 270 60 000 ml @ 20 mls/hr IV . Q24H [facility] Rx#:[id number] cardiac output 60 pressure bag 69 42 12 Intake, IV Titration 261.248 155.477 36.925 Amount Calcium Gluconate 2,000 100 mg In Sodium Chloride 0.9 % 100 ml @ 100 mls/hr IVPB ONCE ONE Rx#: [id number] Insulin Regular 100 unit 61.248 55.477 1.01 In Sodium Chloride 0.9% 100 ml @ Per Protocol IV .Q0M [facility] Rx#:[id number] Propofol 1,000 mg In 100 100.000 100 35.915 ml @ Titrate IV .Q0M [facility] Rx#:[id number] Tube Feeding 680 300 120 Output: Chest Tube Drainage 54 40 10 Chest Tube Right Lateral 4 Chest Left Lateral Chest 0 40 10 Mediastinal x 2 50 Urine 1105 850 150 Other: Voiding Method Indwelling Catheter Indwelling Catheter # Bowel Movements 1 ABP, PAP, CO, CI - Last Documented Arterial Blood Pressure 147/50 Pulmonary Artery Pressure 43/32 Cardiac Output 3.9 Cardiac Index 2.3 - Constitutional General appearance: Present: no acute distress - Labs CBC & Chem 7: 03/09/17 05:37 03/09/17 05:37 Labs: Abnormal Lab Results - Last 24 Hours (Table) 03/08/17 03/08/17 03/08/17 Range/Units 10:14 11:24 12:00 RBC (3.80-5.40) m/uL Hgb (11.4-16.0) gm/dL Hct (34.0-46.0) % MCV (80.0-100.0) fL MCH (25.0-35.0) pg RDW (11.5-15.5) % Monocytes # (Manual) (0-1.0) k/uL Nucleated RBCs (0-0) /100 WBC ABG pH (7.35-7.45) ABG pCO2 (35-45) mmHg Chloride (98-107) mmol/L BUN (7-17) mg/dL Creatinine (0.52-1.04) mg/dL Glucose (74-99) mg/dL POC Glucose (mg/dL) 148 H 150 H 154 H (75-99) mg/dL Calcium (8.4-10.2) mg/dL Magnesium (1.6-2.3) mg/dL AST (14-36) U/L ALT (9-52) U/L Alkaline Phosphatase (38-126) U/L Total Protein (6.3-8.2) g/dL Albumin (3.5-5.0) g/dL 03/08/17 03/08/17 03/08/17 Range/Units 13:24 14:36 15:46 RBC (3.80-5.40) m/uL Hgb (11.4-16.0) gm/dL Hct (34.0-46.0) % MCV (80.0-100.0) fL MCH (25.0-35.0) pg RDW (11.5-15.5) % Monocytes # (Manual) (0-1.0) k/uL Nucleated RBCs (0-0) /100 WBC ABG pH (7.35-7.45) ABG pCO2 (35-45) mmHg Chloride (98-107) mmol/L BUN (7-17) mg/dL Creatinine (0.52-1.04) mg/dL Glucose (74-99) mg/dL POC Glucose (mg/dL) 156 H 157 H 151 H (75-99) mg/dL Calcium (8.4-10.2) mg/dL Magnesium (1.6-2.3) mg/dL AST (14-36) U/L ALT (9-52) U/L Alkaline Phosphatase (38-126) U/L Total Protein (6.3-8.2) g/dL Albumin (3.5-5.0) g/dL 03/08/17 03/08/17 03/08/17 Range/Units 16:51 18:58 19:59 RBC (3.80-5.40) m/uL Hgb (11.4-16.0) gm/dL Hct (34.0-46.0) % MCV (80.0-100.0) fL MCH (25.0-35.0) pg RDW (11.5-15.5) % Monocytes # (Manual) (0-1.0) k/uL Nucleated RBCs (0-0) /100 WBC ABG pH (7.35-7.45) ABG pCO2 (35-45) mmHg Chloride (98-107) mmol/L BUN (7-17) mg/dL Creatinine (0.52-1.04) mg/dL Glucose (74-99) mg/dL POC Glucose (mg/dL) 122 H 116 H 143 H (75-99) mg/dL Calcium (8.4-10.2) mg/dL Magnesium (1.6-2.3) mg/dL AST (14-36) U/L ALT (9-52) U/L Alkaline Phosphatase (38-126) U/L Total Protein (6.3-8.2) g/dL Albumin (3.5-5.0) g/dL 03/08/17 03/08/17 03/09/17 Range/Units 21:12 22:22 00:26 RBC (3.80-5.40) m/uL Hgb (11.4-16.0) gm/dL Hct (34.0-46.0) % MCV (80.0-100.0) fL MCH (25.0-35.0) pg RDW (11.5-15.5) % Monocytes # (Manual) (0-1.0) k/uL Nucleated RBCs (0-0) /100 WBC ABG pH (7.35-7.45) ABG pCO2 (35-45) mmHg Chloride (98-107) mmol/L BUN (7-17) mg/dL Creatinine (0.52-1.04) mg/dL Glucose (74-99) mg/dL POC Glucose (mg/dL) 128 H 118 H 113 H (75-99) mg/dL Calcium (8.4-10.2) mg/dL Magnesium (1.6-2.3) mg/dL AST (14-36) U/L ALT (9-52) U/L Alkaline Phosphatase (38-126) U/L Total Protein (6.3-8.2) g/dL Albumin (3.5-5.0) g/dL 03/09/17 03/09/17 03/09/17 Range/Units 03:09 04:05 05:24 RBC (3.80-5.40) m/uL Hgb (11.4-16.0) gm/dL Hct (34.0-46.0) % MCV (80.0-100.0) fL MCH (25.0-35.0) pg RDW (11.5-15.5) % Monocytes # (Manual) (0-1.0) k/uL Nucleated RBCs (0-0) /100 WBC ABG pH 7.48 H (7.35-7.45) ABG pCO2 29 L (35-45) mmHg Chloride (98-107) mmol/L BUN (7-17) mg/dL Creatinine (0.52-1.04) mg/dL Glucose (74-99) mg/dL POC Glucose (mg/dL) 129 H 133 H (75-99) mg/dL Calcium (8.4-10.2) mg/dL Magnesium (1.6-2.3) mg/dL AST (14-36) U/L ALT (9-52) U/L Alkaline Phosphatase (38-126) U/L Total Protein (6.3-8.2) g/dL Albumin (3.5-5.0) g/dL 03/09/17 03/09/17 03/09/17 Range/Units 05:35 05:37 05:37 RBC 3.50 L (3.80-5.40) m/uL Hgb 8.5 L (11.4-16.0) gm/dL Hct 26.2 L (34.0-46.0) % MCV 74.8 L (80.0-100.0) fL MCH 24.2 L (25.0-35.0) pg RDW 24.8 H (11.5-15.5) % Monocytes # (Manual) 1.3 H (0-1.0) k/uL Nucleated RBCs 5 H (0-0) /100 WBC ABG pH (7.35-7.45) ABG pCO2 (35-45) mmHg Chloride 114 H (98-107) mmol/L BUN 53 H (7-17) mg/dL Creatinine 1.40 H (0.52-1.04) mg/dL Glucose 114 H (74-99) mg/dL POC Glucose (mg/dL) 121 H (75-99) mg/dL Calcium 7.7 L (8.4-10.2) mg/dL Magnesium 2.5 H (1.6-2.3) mg/dL AST 155 H (14-36) U/L ALT 144 H (9-52) U/L Alkaline Phosphatase 282 H (38-126) U/L Total Protein 4.6 L (6.3-8.2) g/dL Albumin 2.5 L (3.5-5.0) g/dL 03/09/17 03/09/17 Range/Units 06:57 08:36 RBC (3.80-5.40) m/uL Hgb (11.4-16.0) gm/dL Hct (34.0-46.0) % MCV (80.0-100.0) fL MCH (25.0-35.0) pg RDW (11.5-15.5) % Monocytes # (Manual) (0-1.0) k/uL Nucleated RBCs (0-0) /100 WBC ABG pH (7.35-7.45) ABG pCO2 (35-45) mmHg Chloride (98-107) mmol/L BUN (7-17) mg/dL Creatinine (0.52-1.04) mg/dL Glucose (74-99) mg/dL POC Glucose (mg/dL) 110 H 113 H (75-99) mg/dL Calcium (8.4-10.2) mg/dL Magnesium (1.6-2.3) mg/dL AST (14-36) U/L ALT (9-52) U/L Alkaline Phosphatase (38-126) U/L Total Protein (6.3-8.2) g/dL Albumin (3.5-5.0) g/dL Assessment and Plan Plan: Assessment Status post aVR using bioprosthetic valve Acute respiratory failure Possible AV don dysfunction. Plan The patient has underlying rhythm which is sinus rhythm with first-degree AV block Continue dual antiplatelet therapy and statin Follow-up with the patient
[2017-03-09 10:09] LABS: Glucose,Whole Blood 180 mg/dL (75-99)
[2017-03-09] MEDS ORDERED: METOPROLOL TARTRATE 12.5 MG TAB PO STA (10:17)
[2017-03-09 11:00] LABS: Glucose,Whole Blood 149 mg/dL (75-99)
[2017-03-09 11:55] LABS: Glucose,Whole Blood 150 mg/dL (75-99)
--- NOTE | 2017-03-09 13:09 | CDI ---
In responding to this query, please exercise your independent professional judgment. The [facility] Coding Staff and Clinical Documentation Specialists appreciate your assistance in clarifying documentation, maintaining compliance with coding guidelines, accurately documenting patients condition and capturing severity of illness. The fact that a question is asked does not imply that any particular answer is desired or expected. Communication forms are a method of clarifying documentation and are not made part of the Legal Health Record. Thank you in advance for your clarification. Last Revision, October 2015 Clari Scott [address] [facility] [place] [address] Documentation Clarification Form Date: 03/09/2017 12:51:00 PM From: Lina Whitfield RN, CCDS Admit Date: 03/04/2017 5:44:00 AM Patient Name: Toña Ovalle Visit Number: [id number] Dr. Han Aguirre/Simran Roberts Patient history/risk factors: Pt is P-op AVR and ligation of left atrial appendage with Atri-Clip Clinical Indicators: 03/04 OP report: "P-OP Bleed. Rexploration of chest, evacuation of Clot, control of bleed." Vitals: Immediately after 1st Surg: Temp 95.5, HR 73, B\\P 86/48, PAP 47/28, CVP 26, SPO2 100% RA Treatment: Neosynephrine Gtt Levophed Gtt Milrinone Drip 4 units PRBC's, 2 units FFP, 1 unit platelets In your professional opinion, can you please specify the type of shock if known ? Cardiogenic Shock o Cause Hypovolemic Shock o Cause Other, please specify Unable to determine Also please identify Expected Inherent to Procedure Integral to Procedure Unexpected Please document in your progress notes and discharge summary in order to capture severity of illness and risk of mortality. Include clinical findings that support your diagnosis. FYI: Press F11 to launch patient chart. SIMONA
[2017-03-09 13:23] LABS: Glucose,Whole Blood 139 mg/dL (75-99)
[2017-03-09] MEDS: MORPHINE SULFATE 2 MG/ML SYRINGE IVP PRN ×2 (13:30→20:36)
[2017-03-09] MEDS: CLEVIDIPINE BUTYRATE 25 MG in EMPTY BAG 1 BAG IV SCH (14:33)
[2017-03-09 14:34] LABS: Glucose,Whole Blood 117 mg/dL (75-99)
[2017-03-09 15:09] LABS: Glucose,Whole Blood 124 mg/dL (75-99)
[2017-03-09] MEDS: INSULIN REGULAR 100 UNIT in SODIUM CHLORIDE 0.9% 100 ML IV SCH (15:49)
[2017-03-09 17:23] LABS: Glucose,Whole Blood 111 mg/dL (75-99)
[2017-03-09 18:07] LABS: Glucose,Whole Blood 121 mg/dL (75-99)
[2017-03-09 18:59] LABS: Glucose,Whole Blood 119 mg/dL (75-99)
[2017-03-09] MEDS: METOPROLOL TARTRATE 25 MG TAB PO SCH (20:41)
[2017-03-09 21:51] LABS: Glucose,Whole Blood 71 mg/dL (75-99)
[2017-03-09 22:12] LABS: Glucose,Whole Blood 74 mg/dL (75-99)
[2017-03-09] MEDS: SENNOSIDES-DOCUSATE SODIUM 1 EACH TAB PO SCH (22:12)
[2017-03-09] MEDS: SODIUM CHLORIDE 0.9% 1,000 ML IV SCH (22:13)
[2017-03-09 23:08] LABS: Glucose,Whole Blood 98 mg/dL (75-99)
[2017-03-10] MEDS ORDERED: ATROPINE SULFATE 0.1 MG/ML 10ML SYRINGE ONE
[2017-03-10] MEDS: PROPOFOL 1,000 MG/100 ML VIAL IV SCH ×3 (00:04→19:18)
[2017-03-10 00:05] LABS: Glucose,Whole Blood 122 mg/dL (75-99)
[2017-03-10 01:06] LABS: Glucose,Whole Blood 123 mg/dL (75-99)
[2017-03-10 03:00] LABS: Glucose,Whole Blood 105 mg/dL (75-99)
[2017-03-10] MEDS: IPRATROPIUM-ALBUTEROL 3 ML NEB INHALATION SCH ×6 (03:15→23:09)
[2017-03-10 04:18] LABS: Glucose,Whole Blood 129 mg/dL (75-99)
[2017-03-10] MEDS: HEPARIN SODIUM,PORCINE 5,000 UNIT/ML 1 ML VIAL SQ SCH ×3 (04:41→21:54)
[2017-03-10 04:45] LABS: Ionized Calcium 4.7 mg/dL (4.5-5.3)
[2017-03-10 04:55] LABS: Calcium 7.7 mg/dL (8.4-10.2); Magnesium 2.4 mg/dL (1.6-2.3); Potassium 4.4 mmol/L (3.5-5.1); Total Bilirubin 1.1 mg/dL (0.2-1.3); Total Protein 4.3 g/dL (6.3-8.2)
[2017-03-10 04:56] LABS: Anisocytosis Marked; CH 23.4; CHCM 31.5; HCT 22.9 % (34.0-46.0); HDW 3.55; HGB 7.2 gm/dL (11.4-16.0); Hypochromasia Moderate; MCH 23.7 pg (25.0-35.0); MCHC 31.6 g/dL (31.0-37.0); MCV 74.9 fL (80.0-100.0); Mean Platelet Volume 8.1; Microcytosis Marked; Poikilocytosis Slight; RBC 3.06 m/uL (3.80-5.40); RDW 24.6 % (11.5-15.5)
[2017-03-10 05:06] LABS: Add Differential Manual Differential
[2017-03-10 05:08] LABS: Glucose,Whole Blood 125 mg/dL (75-99)
[2017-03-10 05:11] LABS: Manual Review Performed; Metamyelocytes % 2 %; Nucleated Red Blood Cells 9 /100 WBC (0-0); Total Cells Counted 200; WBC 10.7 k/uL (3.8-10.6)
[2017-03-10 05:12] LABS: Polychromasia Present
[2017-03-10 05:46] LABS: ABG Base Excess -0.5 mmol/L; ABG HCO3 22 mmol/L (21-25); ABG PCO2 28 mmHg (35-45); ABG PH 7.51 (7.35-7.45); ABG PO2 68 mmHg (83-108); ABG TCO2 23 mmol/L (19-24)
[2017-03-10 06:18] LABS: Glucose,Whole Blood 112 mg/dL (75-99)
[2017-03-10 06:42] LABS: Amylase 78 U/L (30-110)
[2017-03-10 07:08] LABS: Glucose,Whole Blood 124 mg/dL (75-99)
--- NOTE | 2017-03-10 07:21 | XR ---
EXAMINATION TYPE: XR chest 1V portable DATE OF EXAM: 03/10/2017 Comparison: 03/09/2017 Clinical History: 76-year-old female Tube placement Findings: Median sternotomy wires are present with prosthetic aortic valve. ET tube and NG tube remain in place . A left-sided chest tube is also present. Left PICC tip at the level of the cavoatrial junction. The heart remains enlarged with diffuse interstitial and vascular prominence and indistinctness of th e pulmonary vasculature. Some patchy retrocardiac opacity also remains. No appreciable pneumothorax. Impression: 1. Correlate for continued to minimally worsened pulmonary vascular congestion/mild interstitial inge a. 2. Suspected patchy retrocardiac atelectasis.
--- NOTE | 2017-03-10 08:03 | P.PN ---
Subjective Principal diagnosis: Postop day #3 for aortic valve repair. This is a continue progress note on a 76-year-old white female essentially admitted for aortic stenosis. The patient has had martinez course secondary significant pleural effusion and rhythmic changes. Minimal improvement is noted since yesterday. Report was noted from cardiovascular Dictation her. Objective - Vital Signs Vital signs: Vital Signs Temp 99.2 F 03/10/17 04:00 Pulse 72 03/10/17 07:55 Resp 24 03/10/17 07:00 BP 122/53 03/07/17 13:00 Pulse Ox 93 L 03/10/17 07:00 Intake & Output 03/09/17 03/10/17 03/10/17 18:59 06:59 18:59 Intake Total 1495.782 865.889 23 Output Total 2015 950 75 Balance -519.218 -84.111 -52 Weight 88.3 kg 85.2 kg Intake: IV 378 406 23 Sodium Chloride 0.9% 1, 330 370 20 000 ml @ 20 mls/hr IV . Q24H [facility] Rx#:[id number] pressure bag 48 36 3 Intake, IV Titration 97.782 199.889 Amount Insulin Regular 100 unit 52.303 34.502 In Sodium Chloride 0.9% 100 ml @ Per Protocol IV .Q0M [facility] Rx#:[id number] Propofol 1,000 mg In 100 45.479 165.387 ml @ Titrate IV .Q0M [facility] Rx#:[id number] Tube Feeding 960 260 Other 60 Output: Chest Tube Drainage 50 40 Left Lateral Chest 50 40 Urine 1965 910 75 Other: Voiding Method Indwelling Catheter Indwelling Catheter # Bowel Movements 2 1 ABP, PAP, CO, CI - Last Documented Arterial Blood Pressure 120/52 Pulmonary Artery Pressure 43/32 Cardiac Output 3.9 Cardiac Index 2.3 - Constitutional General appearance: Present: average body habitus - EENT Eyes: Absent: abnormal pupil - Respiratory Respiratory: bilateral: diminished - Cardiovascular Rhythm: regular Heart sounds: normal: S1, S2 - Gastrointestinal General gastrointestinal: Present: soft. Absent: tenderness - Labs CBC & Chem 7: 03/10/17 04:25 03/10/17 04:25 Labs: Abnormal Lab Results - Last 24 Hours (Table) 03/09/17 03/09/17 03/09/17 Range/Units 08:36 10:07 10:58 WBC (3.8-10.6) k/uL RBC (3.80-5.40) m/uL Hgb (11.4-16.0) gm/dL Hct (34.0-46.0) % MCV (80.0-100.0) fL MCH (25.0-35.0) pg RDW (11.5-15.5) % Monocytes # (Manual) (0-1.0) k/uL Nucleated RBCs (0-0) /100 WBC ABG pH (7.35-7.45) ABG pCO2 (35-45) mmHg ABG pO2 (83-108) mmHg Sodium (137-145) mmol/L Chloride (98-107) mmol/L BUN (7-17) mg/dL Creatinine (0.52-1.04) mg/dL Glucose (74-99) mg/dL POC Glucose (mg/dL) 113 H 180 H 149 H (75-99) mg/dL Calcium (8.4-10.2) mg/dL Magnesium (1.6-2.3) mg/dL AST (14-36) U/L ALT (9-52) U/L Alkaline Phosphatase (38-126) U/L Total Protein (6.3-8.2) g/dL Albumin (3.5-5.0) g/dL 03/09/17 03/09/17 03/09/17 Range/Units 11:53 13:21 14:32 WBC (3.8-10.6) k/uL RBC (3.80-5.40) m/uL Hgb (11.4-16.0) gm/dL Hct (34.0-46.0) % MCV (80.0-100.0) fL MCH (25.0-35.0) pg RDW (11.5-15.5) % Monocytes # (Manual) (0-1.0) k/uL Nucleated RBCs (0-0) /100 WBC ABG pH (7.35-7.45) ABG pCO2 (35-45) mmHg ABG pO2 (83-108) mmHg Sodium (137-145) mmol/L Chloride (98-107) mmol/L BUN (7-17) mg/dL Creatinine (0.52-1.04) mg/dL Glucose (74-99) mg/dL POC Glucose (mg/dL) 150 H 139 H 117 H (75-99) mg/dL Calcium (8.4-10.2) mg/dL Magnesium (1.6-2.3) mg/dL AST (14-36) U/L ALT (9-52) U/L Alkaline Phosphatase (38-126) U/L Total Protein (6.3-8.2) g/dL Albumin (3.5-5.0) g/dL 03/09/17 03/09/17 03/09/17 Range/Units 15:07 17:21 18:06 WBC (3.8-10.6) k/uL RBC (3.80-5.40) m/uL Hgb (11.4-16.0) gm/dL Hct (34.0-46.0) % MCV (80.0-100.0) fL MCH (25.0-35.0) pg RDW (11.5-15.5) % Monocytes # (Manual) (0-1.0) k/uL Nucleated RBCs (0-0) /100 WBC ABG pH (7.35-7.45) ABG pCO2 (35-45) mmHg ABG pO2 (83-108) mmHg Sodium (137-145) mmol/L Chloride (98-107) mmol/L BUN (7-17) mg/dL Creatinine (0.52-1.04) mg/dL Glucose (74-99) mg/dL POC Glucose (mg/dL) 124 H 111 H 121 H (75-99) mg/dL Calcium (8.4-10.2) mg/dL Magnesium (1.6-2.3) mg/dL AST (14-36) U/L ALT (9-52) U/L Alkaline Phosphatase (38-126) U/L Total Protein (6.3-8.2) g/dL Albumin (3.5-5.0) g/dL 03/09/17 03/09/17 03/09/17 Range/Units 18:57 21:49 22:09 WBC (3.8-10.6) k/uL RBC (3.80-5.40) m/uL Hgb (11.4-16.0) gm/dL Hct (34.0-46.0) % MCV (80.0-100.0) fL MCH (25.0-35.0) pg RDW (11.5-15.5) % Monocytes # (Manual) (0-1.0) k/uL Nucleated RBCs (0-0) /100 WBC ABG pH (7.35-7.45) ABG pCO2 (35-45) mmHg ABG pO2 (83-108) mmHg Sodium (137-145) mmol/L Chloride (98-107) mmol/L BUN (7-17) mg/dL Creatinine (0.52-1.04) mg/dL Glucose (74-99) mg/dL POC Glucose (mg/dL) 119 H 71 L 74 L (75-99) mg/dL Calcium (8.4-10.2) mg/dL Magnesium (1.6-2.3) mg/dL AST (14-36) U/L ALT (9-52) U/L Alkaline Phosphatase (38-126) U/L Total Protein (6.3-8.2) g/dL Albumin (3.5-5.0) g/dL 03/10/17 03/10/17 03/10/17 Range/Units 00:03 01:04 02:58 WBC (3.8-10.6) k/uL RBC (3.80-5.40) m/uL Hgb (11.4-16.0) gm/dL Hct (34.0-46.0) % MCV (80.0-100.0) fL MCH (25.0-35.0) pg RDW (11.5-15.5) % Monocytes # (Manual) (0-1.0) k/uL Nucleated RBCs (0-0) /100 WBC ABG pH (7.35-7.45) ABG pCO2 (35-45) mmHg ABG pO2 (83-108) mmHg Sodium (137-145) mmol/L Chloride (98-107) mmol/L BUN (7-17) mg/dL Creatinine (0.52-1.04) mg/dL Glucose (74-99) mg/dL POC Glucose (mg/dL) 122 H 123 H 105 H (75-99) mg/dL Calcium (8.4-10.2) mg/dL Magnesium (1.6-2.3) mg/dL AST (14-36) U/L ALT (9-52) U/L Alkaline Phosphatase (38-126) U/L Total Protein (6.3-8.2) g/dL Albumin (3.5-5.0) g/dL 03/10/17 03/10/17 03/10/17 Range/Units 04:17 04:25 04:25 WBC 10.7 H (3.8-10.6) k/uL RBC 3.06 L (3.80-5.40) m/uL Hgb 7.2 L (11.4-16.0) gm/dL Hct 22.9 L (34.0-46.0) % MCV 74.9 L (80.0-100.0) fL MCH 23.7 L (25.0-35.0) pg RDW 24.6 H (11.5-15.5) % Monocytes # (Manual) 1.28 H (0-1.0) k/uL Nucleated RBCs 9 H (0-0) /100 WBC ABG pH (7.35-7.45) ABG pCO2 (35-45) mmHg ABG pO2 (83-108) mmHg Sodium 146 H (137-145) mmol/L Chloride 115 H (98-107) mmol/L BUN 52 H (7-17) mg/dL Creatinine 1.30 H (0.52-1.04) mg/dL Glucose 119 H (74-99) mg/dL POC Glucose (mg/dL) 129 H (75-99) mg/dL Calcium 7.7 L (8.4-10.2) mg/dL Magnesium 2.4 H (1.6-2.3) mg/dL AST 95 H (14-36) U/L ALT 125 H (9-52) U/L Alkaline Phosphatase 225 H (38-126) U/L Total Protein 4.3 L (6.3-8.2) g/dL Albumin 2.2 L (3.5-5.0) g/dL 03/10/17 03/10/17 03/10/17 Range/Units 05:06 05:27 06:15 WBC (3.8-10.6) k/uL RBC (3.80-5.40) m/uL Hgb (11.4-16.0) gm/dL Hct (34.0-46.0) % MCV (80.0-100.0) fL MCH (25.0-35.0) pg RDW (11.5-15.5) % Monocytes # (Manual) (0-1.0) k/uL Nucleated RBCs (0-0) /100 WBC ABG pH 7.51 H (7.35-7.45) ABG pCO2 28 L (35-45) mmHg ABG pO2 68 L (83-108) mmHg Sodium (137-145) mmol/L Chloride (98-107) mmol/L BUN (7-17) mg/dL Creatinine (0.52-1.04) mg/dL Glucose (74-99) mg/dL POC Glucose (mg/dL) 125 H 112 H (75-99) mg/dL Calcium (8.4-10.2) mg/dL Magnesium (1.6-2.3) mg/dL AST (14-36) U/L ALT (9-52) U/L Alkaline Phosphatase (38-126) U/L Total Protein (6.3-8.2) g/dL Albumin (3.5-5.0) g/dL 03/10/17 Range/Units 07:06 WBC (3.8-10.6) k/uL RBC (3.80-5.40) m/uL Hgb (11.4-16.0) gm/dL Hct (34.0-46.0) % MCV (80.0-100.0) fL MCH (25.0-35.0) pg RDW (11.5-15.5) % Monocytes # (Manual) (0-1.0) k/uL Nucleated RBCs (0-0) /100 WBC ABG pH (7.35-7.45) ABG pCO2 (35-45) mmHg ABG pO2 (83-108) mmHg Sodium (137-145) mmol/L Chloride (98-107) mmol/L BUN (7-17) mg/dL Creatinine (0.52-1.04) mg/dL Glucose (74-99) mg/dL POC Glucose (mg/dL) 124 H (75-99) mg/dL Calcium (8.4-10.2) mg/dL Magnesium (1.6-2.3) mg/dL AST (14-36) U/L ALT (9-52) U/L Alkaline Phosphatase (38-126) U/L Total Protein (6.3-8.2) g/dL Albumin (3.5-5.0) g/dL Microbiology - Last 24 Hours (Table) 03/09/17 21:12 Gram Stain - Preliminary Drainage Wound Culture - Preliminary 03/09/17 21:12 Gram Stain - Preliminary Drainage Wound Culture - Preliminary Assessment and Plan (1) Status post aortic valve replacement Status: Acute (2) Bicuspid aortic valve Status: Acute (3) Diabetes mellitus, insulin dependent (IDDM), controlled Status: Acute (4) Hypertension Status: Acute Plan: Continue to follow. Continue appropriate progress for support. See orders otherwise.
[2017-03-10 08:25] LABS: Glucose,Whole Blood 116 mg/dL (75-99)
[2017-03-10] MEDS: ERGOCALCIFEROL 50,000 UNIT CAP PO SCH (08:38)
[2017-03-10] MEDS: PANTOPRAZOLE 40 MG/10 ML VIAL IVP SCH (08:38)
[2017-03-10] MEDS: CLOPIDOGREL 75 MG TAB PO SCH (08:38)
[2017-03-10] MEDS: CHLORHEXIDINE GLUCONATE 15 ML CUP MUCOUS MEM SCH ×2 (08:38→21:54)
[2017-03-10] MEDS: METOPROLOL TARTRATE 25 MG TAB PO SCH ×2 (08:39→21:54)
[2017-03-10] MEDS: LISINOPRIL 2.5 MG TAB PO SCH (08:39)
[2017-03-10] MEDS: ASPIRIN 325 MG TAB PO SCH (08:39)
[2017-03-10] MEDS: CALCIUM CARB-VIT D 500MG-200UN 1 EACH TAB PO SCH (08:39)
[2017-03-10] MEDS: DEXTROSE 5% IN WATER 1,000 ML IV SCH (08:41)
[2017-03-10] MEDS ORDERED: FUROSEMIDE 10 MG/ML 2 ML VIAL IV STA ×2 (08:51→13:28)
[2017-03-10 08:59] LABS: Glucose,Whole Blood 125 mg/dL (75-99)
--- NOTE | 2017-03-10 09:11 | P.PN ---
Subjective Principal diagnosis: Status post aVR This is a pleasant 76-year-old female patient who sees Dr. STELLA Lazaro as an outpatient who was diagnosed recently with symptomatic severe aortic stenosis secondary to bicuspid aortic valve. The patient underwent aVR using a bioprosthetic aortic valve. Subsequently she developed bleeding and she was taken to the OR again. Currently the patient is intubated and she is not ready to wean yet. Hemodynamically she is hypertensive and the metoprolol as well as lisinopril doses were increased earlier today. Now she has underlying rhythm which seems to be sinus rhythm with first-degree AV block. We'll continue the current medical treatment was dual antiplatelet. Objective - Vital Signs Vital signs: Vital Signs Temp 99.5 F 03/10/17 08:00 Pulse 73 03/10/17 08:00 Resp 28 H 03/10/17 08:00 BP 122/53 03/07/17 13:00 Pulse Ox 93 L 03/10/17 08:00 Intake & Output 03/09/17 03/10/17 03/10/17 18:59 06:59 18:59 Intake Total 1495.782 865.889 116.565 Output Total 2014 950 185 Balance -519.218 -84.111 -68.435 Weight 88.3 kg 85.2 kg Intake: IV 378 406 89 Dextrose 5% in Water 1, 40 000 ml @ 40 mls/hr IV . Q24H [facility] Rx#:[id number] Sodium Chloride 0.9% 1, 330 370 40 000 ml @ 20 mls/hr IV . Q24H [facility] Rx#:[id number] pressure bag 48 36 9 Intake, IV Titration 97.782 199.889 27.565 Amount Insulin Regular 100 unit 52.303 34.502 27.565 In Sodium Chloride 0.9% 100 ml @ Per Protocol IV .Q0M [facility] Rx#:[id number] Propofol 1,000 mg In 100 45.479 165.387 ml @ Titrate IV .Q0M [facility] Rx#:[id number] Tube Feeding 960 260 Other 60 Output: Chest Tube Drainage 50 40 Left Lateral Chest 50 40 Urine 1965 910 185 Other: Voiding Method Indwelling Catheter Indwelling Catheter # Bowel Movements 2 1 ABP, PAP, CO, CI - Last Documented Arterial Blood Pressure 121/50 Pulmonary Artery Pressure 43/32 Cardiac Output 3.9 Cardiac Index 2.3 - Constitutional General appearance: Present: no acute distress - Respiratory Respiratory: bilateral: diminished - Cardiovascular Rhythm: regular - Labs CBC & Chem 7: 03/10/17 04:25 03/10/17 04:25 Labs: Abnormal Lab Results - Last 24 Hours (Table) 03/09/17 03/09/17 03/09/17 Range/Units 10:07 10:58 11:53 WBC (3.8-10.6) k/uL RBC (3.80-5.40) m/uL Hgb (11.4-16.0) gm/dL Hct (34.0-46.0) % MCV (80.0-100.0) fL MCH (25.0-35.0) pg RDW (11.5-15.5) % Monocytes # (Manual) (0-1.0) k/uL Nucleated RBCs (0-0) /100 WBC ABG pH (7.35-7.45) ABG pCO2 (35-45) mmHg ABG pO2 (83-108) mmHg Sodium (137-145) mmol/L Chloride (98-107) mmol/L BUN (7-17) mg/dL Creatinine (0.52-1.04) mg/dL Glucose (74-99) mg/dL POC Glucose (mg/dL) 180 H 149 H 150 H (75-99) mg/dL Calcium (8.4-10.2) mg/dL Magnesium (1.6-2.3) mg/dL AST (14-36) U/L ALT (9-52) U/L Alkaline Phosphatase (38-126) U/L Total Protein (6.3-8.2) g/dL Albumin (3.5-5.0) g/dL 03/09/17 03/09/17 03/09/17 Range/Units 13:21 14:32 15:07 WBC (3.8-10.6) k/uL RBC (3.80-5.40) m/uL Hgb (11.4-16.0) gm/dL Hct (34.0-46.0) % MCV (80.0-100.0) fL MCH (25.0-35.0) pg RDW (11.5-15.5) % Monocytes # (Manual) (0-1.0) k/uL Nucleated RBCs (0-0) /100 WBC ABG pH (7.35-7.45) ABG pCO2 (35-45) mmHg ABG pO2 (83-108) mmHg Sodium (137-145) mmol/L Chloride (98-107) mmol/L BUN (7-17) mg/dL Creatinine (0.52-1.04) mg/dL Glucose (74-99) mg/dL POC Glucose (mg/dL) 139 H 117 H 124 H (75-99) mg/dL Calcium (8.4-10.2) mg/dL Magnesium (1.6-2.3) mg/dL AST (14-36) U/L ALT (9-52) U/L Alkaline Phosphatase (38-126) U/L Total Protein (6.3-8.2) g/dL Albumin (3.5-5.0) g/dL 03/09/17 03/09/17 03/09/17 Range/Units 17:21 18:06 18:57 WBC (3.8-10.6) k/uL RBC (3.80-5.40) m/uL Hgb (11.4-16.0) gm/dL Hct (34.0-46.0) % MCV (80.0-100.0) fL MCH (25.0-35.0) pg RDW (11.5-15.5) % Monocytes # (Manual) (0-1.0) k/uL Nucleated RBCs (0-0) /100 WBC ABG pH (7.35-7.45) ABG pCO2 (35-45) mmHg ABG pO2 (83-108) mmHg Sodium (137-145) mmol/L Chloride (98-107) mmol/L BUN (7-17) mg/dL Creatinine (0.52-1.04) mg/dL Glucose (74-99) mg/dL POC Glucose (mg/dL) 111 H 121 H 119 H (75-99) mg/dL Calcium (8.4-10.2) mg/dL Magnesium (1.6-2.3) mg/dL AST (14-36) U/L ALT (9-52) U/L Alkaline Phosphatase (38-126) U/L Total Protein (6.3-8.2) g/dL Albumin (3.5-5.0) g/dL 03/09/17 03/09/17 03/10/17 Range/Units 21:49 22:09 00:03 WBC (3.8-10.6) k/uL RBC (3.80-5.40) m/uL Hgb (11.4-16.0) gm/dL Hct (34.0-46.0) % MCV (80.0-100.0) fL MCH (25.0-35.0) pg RDW (11.5-15.5) % Monocytes # (Manual) (0-1.0) k/uL Nucleated RBCs (0-0) /100 WBC ABG pH (7.35-7.45) ABG pCO2 (35-45) mmHg ABG pO2 (83-108) mmHg Sodium (137-145) mmol/L Chloride (98-107) mmol/L BUN (7-17) mg/dL Creatinine (0.52-1.04) mg/dL Glucose (74-99) mg/dL POC Glucose (mg/dL) 71 L 74 L 122 H (75-99) mg/dL Calcium (8.4-10.2) mg/dL Magnesium (1.6-2.3) mg/dL AST (14-36) U/L ALT (9-52) U/L Alkaline Phosphatase (38-126) U/L Total Protein (6.3-8.2) g/dL Albumin (3.5-5.0) g/dL 03/10/17 03/10/17 03/10/17 Range/Units 01:04 02:58 04:17 WBC (3.8-10.6) k/uL RBC (3.80-5.40) m/uL Hgb (11.4-16.0) gm/dL Hct (34.0-46.0) % MCV (80.0-100.0) fL MCH (25.0-35.0) pg RDW (11.5-15.5) % Monocytes # (Manual) (0-1.0) k/uL Nucleated RBCs (0-0) /100 WBC ABG pH (7.35-7.45) ABG pCO2 (35-45) mmHg ABG pO2 (83-108) mmHg Sodium (137-145) mmol/L Chloride (98-107) mmol/L BUN (7-17) mg/dL Creatinine (0.52-1.04) mg/dL Glucose (74-99) mg/dL POC Glucose (mg/dL) 123 H 105 H 129 H (75-99) mg/dL Calcium (8.4-10.2) mg/dL Magnesium (1.6-2.3) mg/dL AST (14-36) U/L ALT (9-52) U/L Alkaline Phosphatase (38-126) U/L Total Protein (6.3-8.2) g/dL Albumin (3.5-5.0) g/dL 03/10/17 03/10/17 03/10/17 Range/Units 04:25 04:25 05:06 WBC 10.7 H (3.8-10.6) k/uL RBC 3.06 L (3.80-5.40) m/uL Hgb 7.2 L (11.4-16.0) gm/dL Hct 22.9 L (34.0-46.0) % MCV 74.9 L (80.0-100.0) fL MCH 23.7 L (25.0-35.0) pg RDW 24.6 H (11.5-15.5) % Monocytes # (Manual) 1.28 H (0-1.0) k/uL Nucleated RBCs 9 H (0-0) /100 WBC ABG pH (7.35-7.45) ABG pCO2 (35-45) mmHg ABG pO2 (83-108) mmHg Sodium 146 H (137-145) mmol/L Chloride 115 H (98-107) mmol/L BUN 52 H (7-17) mg/dL Creatinine 1.30 H (0.52-1.04) mg/dL Glucose 119 H (74-99) mg/dL POC Glucose (mg/dL) 125 H (75-99) mg/dL Calcium 7.7 L (8.4-10.2) mg/dL Magnesium 2.4 H (1.6-2.3) mg/dL AST 95 H (14-36) U/L ALT 125 H (9-52) U/L Alkaline Phosphatase 225 H (38-126) U/L Total Protein 4.3 L (6.3-8.2) g/dL Albumin 2.2 L (3.5-5.0) g/dL 03/10/17 03/10/17 03/10/17 Range/Units 05:27 06:15 07:06 WBC (3.8-10.6) k/uL RBC (3.80-5.40) m/uL Hgb (11.4-16.0) gm/dL Hct (34.0-46.0) % MCV (80.0-100.0) fL MCH (25.0-35.0) pg RDW (11.5-15.5) % Monocytes # (Manual) (0-1.0) k/uL Nucleated RBCs (0-0) /100 WBC ABG pH 7.51 H (7.35-7.45) ABG pCO2 28 L (35-45) mmHg ABG pO2 68 L (83-108) mmHg Sodium (137-145) mmol/L Chloride (98-107) mmol/L BUN (7-17) mg/dL Creatinine (0.52-1.04) mg/dL Glucose (74-99) mg/dL POC Glucose (mg/dL) 112 H 124 H (75-99) mg/dL Calcium (8.4-10.2) mg/dL Magnesium (1.6-2.3) mg/dL AST (14-36) U/L ALT (9-52) U/L Alkaline Phosphatase (38-126) U/L Total Protein (6.3-8.2) g/dL Albumin (3.5-5.0) g/dL 03/10/17 03/10/17 Range/Units 08:24 08:57 WBC (3.8-10.6) k/uL RBC (3.80-5.40) m/uL Hgb (11.4-16.0) gm/dL Hct (34.0-46.0) % MCV (80.0-100.0) fL MCH (25.0-35.0) pg RDW (11.5-15.5) % Monocytes # (Manual) (0-1.0) k/uL Nucleated RBCs (0-0) /100 WBC ABG pH (7.35-7.45) ABG pCO2 (35-45) mmHg ABG pO2 (83-108) mmHg Sodium (137-145) mmol/L Chloride (98-107) mmol/L BUN (7-17) mg/dL Creatinine (0.52-1.04) mg/dL Glucose (74-99) mg/dL POC Glucose (mg/dL) 116 H 125 H (75-99) mg/dL Calcium (8.4-10.2) mg/dL Magnesium (1.6-2.3) mg/dL AST (14-36) U/L ALT (9-52) U/L Alkaline Phosphatase (38-126) U/L Total Protein (6.3-8.2) g/dL Albumin (3.5-5.0) g/dL Microbiology - Last 24 Hours (Table) 03/09/17 21:12 Gram Stain - Preliminary Drainage Wound Culture - Preliminary 03/09/17 21:12 Gram Stain - Preliminary Drainage Wound Culture - Preliminary Assessment and Plan Plan: Assessment Status post aVR using bioprosthetic valve Acute respiratory failure Possible AV don dysfunction. Plan The patient has underlying rhythm which is sinus rhythm with first-degree AV block Continue dual antiplatelet therapy and statin Follow-up with the patient
[2017-03-10 10:06] LABS: Glucose,Whole Blood 94 mg/dL (75-99)
--- NOTE | 2017-03-10 11:10 | P.PN ---
Subjective Principal diagnosis: Bicuspid aortic valve with critical aortic stenosis, aortic insufficiency. CAD. Diabetes mellitus. Hypertension. History of TIAs, neuropathy, pericarditis, scoliosis, brain concussion. History of paroxysmal atrial fibrillation POD #6 elective aortic valve replacement with #25 mm magna ease bioprosthetic aortic valve, a clip ligation into left atrial appendage with a #35 mm AtriClip and intraoperative transesophageal echocardiogram. Postoperative acute blood loss anemia, a potential expected outcome of surgery. POD #6 reexploration of the chest, evacuation of clot, control of bleed. Postoperative hypoxic respiratory failure requiring prolonged mechanical ventilation, a potential expected outcome of surgery. POD #4 placement of right pleural chest tube for pleural effusion Postoperative hypovolemic shock, inherent to the surgery The patient currently off sedation on mechanical ventilation. Failed weaning trial yesterday secondary to tachypnea. Will reattempt today. Objective - Vital Signs Vital signs: Vital Signs Temp 99.5 F 03/10/17 08:00 Pulse 72 03/10/17 10:00 Resp 28 H 03/10/17 10:00 BP 122/53 03/07/17 13:00 Pulse Ox 93 L 03/10/17 10:00 Intake & Output 17 17 03/10/17 18:59 06:59 18:59 Intake Total 1495.782 865.889 196.428 Output Total 2014 950 295 Balance -519.218 -84.111 -98.572 Weight 88.3 kg 85.2 kg Intake: IV 378 406 132 Dextrose 5% in Water 1, 80 000 ml @ 40 mls/hr IV . Q24H [facility] Rx#:[id number] Sodium Chloride 0.9% 1, 330 370 40 000 ml @ 20 mls/hr IV . Q24H [facility] Rx#:[id number] pressure bag 48 36 12 Intake, IV Titration 97.782 199.889 64.428 Amount Insulin Regular 100 unit 52.303 34.502 34.837 In Sodium Chloride 0.9% 100 ml @ Per Protocol IV .Q0M [facility] Rx#:[id number] Propofol 1,000 mg In 100 45.479 165.387 29.591 ml @ Titrate IV .Q0M [facility] Rx#:[id number] Tube Feeding 960 260 0 Other 60 Output: Chest Tube Drainage 50 40 0 Left Lateral Chest 50 40 0 Urine 1965 910 295 Other: Voiding Method Indwelling Catheter Indwelling Catheter # Bowel Movements 2 1 ABP, PAP, CO, CI - Last Documented Arterial Blood Pressure 127/49 Pulmonary Artery Pressure 43/32 Cardiac Output 3.9 Cardiac Index 2.3 - Constitutional General appearance: Present: no acute distress - Respiratory Details: Lungs sounds diminished bilaterally. Respirations even, nonlabored on mechanical ventilation. Current settings assist control mode, FiO2 40%, tidal volume 450, respiratory rate 20, PEEP 5. - Cardiovascular Details: S1, S2 present. Regular rate and rhythm, sinus rhythm with first-degree block on telemetry. A/V epicardial pacemaker wires present, connected to generator, AAI with backup rate 50 bpm. Sternum stable. Left brachial PICC line present. Trace generalized edema present. Palpable pulses bilaterally. Teds/SCDs present. - Gastrointestinal Gastrointestinal Comment(s): Abdomen soft, nontender, distended. Active bowel sounds 4 quadrants. Tolerating vital tube feeding at 40 mL per hour, residuals approximately 25 mL every 4 hours per nursing. - Genitourinary Genitourinary Comment(s): Cuellar present draining clear, yellow urine. Output 45-90 mL per hour. - Integumentary Integumentary Comment(s): Anterior chest incision well approximated, dry intact dressing. - Neurologic Neurologic Comment(s): Currently os sedation. Does open eyes to command, moving all 4 extremities. - Musculoskeletal Musculoskeletal: Present: generalized weakness - Allied health notes Allied health notes reviewed: nursing - Labs CBC & Chem 7: 03/10/17 04:25 03/10/17 04:25 Labs: Abnormal Lab Results - Last 24 Hours (Table) 03/09/17 03/09/17 03/09/17 Range/Units 10:58 11:53 13:21 WBC (3.8-10.6) k/uL RBC (3.80-5.40) m/uL Hgb (11.4-16.0) gm/dL Hct (34.0-46.0) % MCV (80.0-100.0) fL MCH (25.0-35.0) pg RDW (11.5-15.5) % Monocytes # (Manual) (0-1.0) k/uL Nucleated RBCs (0-0) /100 WBC ABG pH (7.35-7.45) ABG pCO2 (35-45) mmHg ABG pO2 (83-108) mmHg Sodium (137-145) mmol/L Chloride (98-107) mmol/L BUN (7-17) mg/dL Creatinine (0.52-1.04) mg/dL Glucose (74-99) mg/dL POC Glucose (mg/dL) 149 H 150 H 139 H (75-99) mg/dL Calcium (8.4-10.2) mg/dL Magnesium (1.6-2.3) mg/dL AST (14-36) U/L ALT (9-52) U/L Alkaline Phosphatase (38-126) U/L Total Protein (6.3-8.2) g/dL Albumin (3.5-5.0) g/dL 03/09/17 03/09/17 03/09/17 Range/Units 14:32 15:07 17:21 WBC (3.8-10.6) k/uL RBC (3.80-5.40) m/uL Hgb (11.4-16.0) gm/dL Hct (34.0-46.0) % MCV (80.0-100.0) fL MCH (25.0-35.0) pg RDW (11.5-15.5) % Monocytes # (Manual) (0-1.0) k/uL Nucleated RBCs (0-0) /100 WBC ABG pH (7.35-7.45) ABG pCO2 (35-45) mmHg ABG pO2 (83-108) mmHg Sodium (137-145) mmol/L Chloride (98-107) mmol/L BUN (7-17) mg/dL Creatinine (0.52-1.04) mg/dL Glucose (74-99) mg/dL POC Glucose (mg/dL) 117 H 124 H 111 H (75-99) mg/dL Calcium (8.4-10.2) mg/dL Magnesium (1.6-2.3) mg/dL AST (14-36) U/L ALT (9-52) U/L Alkaline Phosphatase (38-126) U/L Total Protein (6.3-8.2) g/dL Albumin (3.5-5.0) g/dL 03/09/17 03/09/17 03/09/17 Range/Units 18:06 18:57 21:49 WBC (3.8-10.6) k/uL RBC (3.80-5.40) m/uL Hgb (11.4-16.0) gm/dL Hct (34.0-46.0) % MCV (80.0-100.0) fL MCH (25.0-35.0) pg RDW (11.5-15.5) % Monocytes # (Manual) (0-1.0) k/uL Nucleated RBCs (0-0) /100 WBC ABG pH (7.35-7.45) ABG pCO2 (35-45) mmHg ABG pO2 (83-108) mmHg Sodium (137-145) mmol/L Chloride (98-107) mmol/L BUN (7-17) mg/dL Creatinine (0.52-1.04) mg/dL Glucose (74-99) mg/dL POC Glucose (mg/dL) 121 H 119 H 71 L (75-99) mg/dL Calcium (8.4-10.2) mg/dL Magnesium (1.6-2.3) mg/dL AST (14-36) U/L ALT (9-52) U/L Alkaline Phosphatase (38-126) U/L Total Protein (6.3-8.2) g/dL Albumin (3.5-5.0) g/dL 03/09/17 03/10/17 03/10/17 Range/Units 22:09 00:03 01:04 WBC (3.8-10.6) k/uL RBC (3.80-5.40) m/uL Hgb (11.4-16.0) gm/dL Hct (34.0-46.0) % MCV (80.0-100.0) fL MCH (25.0-35.0) pg RDW (11.5-15.5) % Monocytes # (Manual) (0-1.0) k/uL Nucleated RBCs (0-0) /100 WBC ABG pH (7.35-7.45) ABG pCO2 (35-45) mmHg ABG pO2 (83-108) mmHg Sodium (137-145) mmol/L Chloride (98-107) mmol/L BUN (7-17) mg/dL Creatinine (0.52-1.04) mg/dL Glucose (74-99) mg/dL POC Glucose (mg/dL) 74 L 122 H 123 H (75-99) mg/dL Calcium (8.4-10.2) mg/dL Magnesium (1.6-2.3) mg/dL AST (14-36) U/L ALT (9-52) U/L Alkaline Phosphatase (38-126) U/L Total Protein (6.3-8.2) g/dL Albumin (3.5-5.0) g/dL 03/10/17 03/10/17 03/10/17 Range/Units 02:58 04:17 04:25 WBC (3.8-10.6) k/uL RBC (3.80-5.40) m/uL Hgb (11.4-16.0) gm/dL Hct (34.0-46.0) % MCV (80.0-100.0) fL MCH (25.0-35.0) pg RDW (11.5-15.5) % Monocytes # (Manual) (0-1.0) k/uL Nucleated RBCs (0-0) /100 WBC ABG pH (7.35-7.45) ABG pCO2 (35-45) mmHg ABG pO2 (83-108) mmHg Sodium 146 H (137-145) mmol/L Chloride 115 H (98-107) mmol/L BUN 52 H (7-17) mg/dL Creatinine 1.30 H (0.52-1.04) mg/dL Glucose 119 H (74-99) mg/dL POC Glucose (mg/dL) 105 H 129 H (75-99) mg/dL Calcium 7.7 L (8.4-10.2) mg/dL Magnesium 2.4 H (1.6-2.3) mg/dL AST 95 H (14-36) U/L ALT 125 H (9-52) U/L Alkaline Phosphatase 225 H (38-126) U/L Total Protein 4.3 L (6.3-8.2) g/dL Albumin 2.2 L (3.5-5.0) g/dL 03/10/17 03/10/17 03/10/17 Range/Units 04:25 05:06 05:27 WBC 10.7 H (3.8-10.6) k/uL RBC 3.06 L (3.80-5.40) m/uL Hgb 7.2 L (11.4-16.0) gm/dL Hct 22.9 L (34.0-46.0) % MCV 74.9 L (80.0-100.0) fL MCH 23.7 L (25.0-35.0) pg RDW 24.6 H (11.5-15.5) % Monocytes # (Manual) 1.28 H (0-1.0) k/uL Nucleated RBCs 9 H (0-0) /100 WBC ABG pH 7.51 H (7.35-7.45) ABG pCO2 28 L (35-45) mmHg ABG pO2 68 L (83-108) mmHg Sodium (137-145) mmol/L Chloride (98-107) mmol/L BUN (7-17) mg/dL Creatinine (0.52-1.04) mg/dL Glucose (74-99) mg/dL POC Glucose (mg/dL) 125 H (75-99) mg/dL Calcium (8.4-10.2) mg/dL Magnesium (1.6-2.3) mg/dL AST (14-36) U/L ALT (9-52) U/L Alkaline Phosphatase (38-126) U/L Total Protein (6.3-8.2) g/dL Albumin (3.5-5.0) g/dL 03/10/17 03/10/17 03/10/17 Range/Units 06:15 07:06 08:24 WBC (3.8-10.6) k/uL RBC (3.80-5.40) m/uL Hgb (11.4-16.0) gm/dL Hct (34.0-46.0) % MCV (80.0-100.0) fL MCH (25.0-35.0) pg RDW (11.5-15.5) % Monocytes # (Manual) (0-1.0) k/uL Nucleated RBCs (0-0) /100 WBC ABG pH (7.35-7.45) ABG pCO2 (35-45) mmHg ABG pO2 (83-108) mmHg Sodium (137-145) mmol/L Chloride (98-107) mmol/L BUN (7-17) mg/dL Creatinine (0.52-1.04) mg/dL Glucose (74-99) mg/dL POC Glucose (mg/dL) 112 H 124 H 116 H (75-99) mg/dL Calcium (8.4-10.2) mg/dL Magnesium (1.6-2.3) mg/dL AST (14-36) U/L ALT (9-52) U/L Alkaline Phosphatase (38-126) U/L Total Protein (6.3-8.2) g/dL Albumin (3.5-5.0) g/dL 03/10/17 Range/Units 08:57 WBC (3.8-10.6) k/uL RBC (3.80-5.40) m/uL Hgb (11.4-16.0) gm/dL Hct (34.0-46.0) % MCV (80.0-100.0) fL MCH (25.0-35.0) pg RDW (11.5-15.5) % Monocytes # (Manual) (0-1.0) k/uL Nucleated RBCs (0-0) /100 WBC ABG pH (7.35-7.45) ABG pCO2 (35-45) mmHg ABG pO2 (83-108) mmHg Sodium (137-145) mmol/L Chloride (98-107) mmol/L BUN (7-17) mg/dL Creatinine (0.52-1.04) mg/dL Glucose (74-99) mg/dL POC Glucose (mg/dL) 125 H (75-99) mg/dL Calcium (8.4-10.2) mg/dL Magnesium (1.6-2.3) mg/dL AST (14-36) U/L ALT (9-52) U/L Alkaline Phosphatase (38-126) U/L Total Protein (6.3-8.2) g/dL Albumin (3.5-5.0) g/dL Microbiology - Last 24 Hours (Table) 03/09/17 21:12 Gram Stain - Preliminary Drainage Wound Culture - Preliminary 03/09/17 21:12 Gram Stain - Preliminary Drainage Wound Culture - Preliminary - Imaging and Cardiology Chest x-ray: report reviewed, image reviewed Assessment and Plan (1) History of TIA (transient ischemic attack) Status: Acute (2) Hyperlipidemia Status: Acute (3) Osteoarthritis Status: Acute (4) Acute blood loss as cause of postoperative anemia Status: Acute (5) Paroxysmal atrial fibrillation Status: Acute (6) Status post aortic valve replacement Status: Acute (7) Bicuspid aortic valve Status: Acute (8) Diabetes mellitus, insulin dependent (IDDM), controlled Status: Acute (9) Hypertension Status: Acute (10) Severe aortic stenosis Status: Acute Plan: 1. Continue aspirin, Plavix, beta daysi, JENNIFER inhibitor. Statin on hold secondary to elevated liver enzymes, will restart when able. Will maximize beta daysi therapy as able. 2. Will discontinue left pleural chest tube. 3. Wean O2 as tolerated. Ventilatory support per pulmonary services. 4. Lasix 20 mg IV push given 1 today. 5. Check residual from OG tube every 4 hours. 6. Continue Cuellar for strict accurate intake and output. 7. Monitor daily labs, chest x-rays. 8. GI/DVT prophylaxis. 9. Insulin management per primary service. 10. More recommendations as patient progresses. Time with Patient: Greater than 30
[2017-03-10 11:18] LABS: Glucose,Whole Blood 95 mg/dL (75-99)
[2017-03-10] MEDS ORDERED: LISINOPRIL 2.5 MG TAB PO STA (11:21)
[2017-03-10] MEDS ORDERED: METOPROLOL TARTRATE 5 MG/5 ML VIAL IVP ONE (11:50)
[2017-03-10 12:03] LABS: Glucose,Whole Blood 128 mg/dL (75-99)
[2017-03-10] MEDS ORDERED: ACETAMINOPHEN SUPPOSITORY 650 MG SUPP RECTAL STA (12:09)
[2017-03-10] MEDS ORDERED: DEXTROSE 5% IN WATER 100 ML with AMIODARONE 150 MG IV ONE (12:18)
[2017-03-10] MEDS: AMIODARONE 450 MG in DEXTROSE 5% IN WATER 250 ML IV SCH ×4 (12:36→18:22)
[2017-03-10] MEDS: CYANOCOBALAMIN 500 MCG TAB PO SCH (12:36)
[2017-03-10] MEDS: CLEVIDIPINE BUTYRATE 25 MG in EMPTY BAG 1 BAG IV SCH ×2 (12:37→13:59)
[2017-03-10 13:01] LABS: Glucose,Whole Blood 159 mg/dL (75-99)
[2017-03-10] MEDS: INSULIN REGULAR 100 UNIT in SODIUM CHLORIDE 0.9% 100 ML IV SCH (13:08)
[2017-03-10] MEDS ORDERED: METOPROLOL TARTRATE 5 MG/5 ML VIAL IVP STA (13:15)
[2017-03-10 13:24] LABS: ABG Base Excess -0.5 mmol/L; ABG HCO3 24 mmol/L (21-25); ABG Oxygen Saturation 95.3 % (94-97); ABG PCO2 37 mmHg (35-45); ABG PH 7.42 (7.35-7.45); ABG PO2 76 mmHg (83-108); ABG TCO2 25 mmol/L (19-24)
[2017-03-10] MEDS ORDERED: LORazepam 2 MG/ML SYRINGE IV STA (13:28)
--- NOTE | 2017-03-10 13:51 | P.PN ---
Subjective 76-year-old male patient is postop day #4 following aortic valve replacement. Patient also is known to have previous CVA, bronchial asthma, hyperlipidemia, diabetes and hypertension. Surgery was done for bicuspid aortic valve and the patient is status post aortic valve replacement, bioprosthetic valve. Postop, the patient developed some mediastinal bleeding with hypotension. Based on that the patient was taken back to the operating room to control the bleed and during the process the patient was given a total of 4 units of packed RBC, 2 units of fresh frozen plasma one unit of platelets. The patient was kept intubated on mechanical ventilator. As mentioned today's postop day #4 On today's evaluation, the patient remains on a mechanical ventilator. The patient is an assist-control mode of ventilation with a rate of 24, tidal volume 350, FiO2 of 60% and a PEEP of 10. She is intubated with a #8 ET tube. Chest x-ray from today shows adequate expansion of both lungs. Chest tubes are in place. ET tube is in place. She has some mild cardiomegaly. No sinus complaints or pleural effusions. No pneumothorax seen. The blood gases from this morning showed a pH of 7.38 with a pCO2 of 36 and pO2 of 76. Hemodynamically the patient is stable. The patient is producing adequate amount of urine output. The patient is on no pressors. The patient is on no clevidipine drip. Blood pressure is on under good control. The chest tubes are still in place. The patient has a right pleural and left pleural chest tube and 2 mediastinal chest tubes. All of them are showing minimal amount of drainage and the patient would have the mediastinal and the right sided chest tube pulled today. Platelet count improved and it's up to 148. Hemoglobin stable at 8.1. She is sedated with Diprivan. She is calm and comfortable. On 03/09/2017 the patient is still being seen in follow-up. The patient has been quite stable overnight. The patient is on a mechanical ventilator and based on the most is a vent changes she is on a rate of 24, tidal volume 450, FiO2 has been down to 40% and I cut down the PEEP down to 8 and then down to 5 cm of water. The patient's chest x-ray showing cardiomegaly and there is a component of pulmonary vessel congestion. The patient was given 20 mg of IV Lasix this morning. She is producing adequate amount of urine output. The mediastinal and the right pleural chest tube has been removed. The patient has a left pleural chest tube only. No fever. No chills. Tolerating tube feeds. No other significant events overnight. Blood gases from this morning showed a pH of 7.48 with a pCO2 of 29 and a pO2 of 83. Hemoglobin stable at 8.5. On 03/10/2017 the patient is being seen in follow-up. She was taken off sedation this morning and she was very slow in recovering from sedation. Despite being off the sedation for few hours, the patient is still lethargic. She is arousable and she can follow simple commands. She is not fully alert however. She remains on same vent settings overnight which included an assist- control of 24, tidal volume 450, FiO2 of 40% and a PEEP of 5. Blood gases from this morning showed a component of respiratory alkalosis. Chest x-ray shows cardiomegaly with pulmonary vascular congestion and the patient was given 20 mg of IV Lasix earlier by cardiothoracic surgery. Mediastinal and right pleural chest tube has been removed. The patient has a left-sided chest tube in place. Sternum stable clean and intact. No major edema in lower extremities. After being taken off sedation, check weaning parameters and the patient was becoming quite restless even on assist control mode of ventilation. She was becoming tachypneic and her minute ventilation was high. She was able to generate more than 400 mL of tidal volume and a support of 5 and a PEEP of 5. At that point, I made a decision to extubate this patient to a BiPAP at a pressure of 12/5 cm of water and FiO2 of 60%. One hour following extubation, blood gases was done and showed a pH of 7.42 with a pCO2 of 37 and pO2 of 76. She is still lethargic and somewhat sleepy. She is arousable however. She did have some hypertensive reaction for which she was given 5 g of IV Lopressor. She is a bit anxious and she'll be given 1 mg of Ativan. Additional dose of 40 because of Lasix will be given. I am inclined not to reintubate this patient. I'm trying to stabilize her condition to avoid reintubation. Note that she has a restrictive lung disease pH is obese. Her FVC and FEV1 were in the 55% of age preoperatively. Her lung volumes are small on today's chest x-ray. Objective - Vital Signs Vital signs: Vital Signs Temp 100.5 F H 03/10/17 12:00 Pulse 133 H 03/10/17 12:00 Resp 34 H 03/10/17 12:00 BP 122/53 03/07/17 13:00 Pulse Ox 96 03/10/17 12:00 Intake & Output 03/09/17 03/10/17 03/10/17 18:59 06:59 18:59 Intake Total 1495.782 865.889 331.458 Output Total 2014 950 880 Balance -519.218 -84.111 -548.542 Weight 88.3 kg 85.2 kg Intake: IV 378 406 261 Dextrose 5% in Water 1, 200 000 ml @ 40 mls/hr IV . Q24H [facility] Rx#:[id number] Sodium Chloride 0.9% 1, 330 370 40 000 ml @ 20 mls/hr IV . Q24H [facility] Rx#:[id number] pressure bag 48 36 21 Intake, IV Titration 97.782 199.889 70.458 Amount Insulin Regular 100 unit 52.303 34.502 40.867 In Sodium Chloride 0.9% 100 ml @ Per Protocol IV .Q0M [facility] Rx#:[id number] Propofol 1,000 mg In 100 45.479 165.387 29.591 ml @ Titrate IV .Q0M [facility] Rx#:[id number] Tube Feeding 960 260 0 Other 60 Output: Chest Tube Drainage 50 40 10 Left Lateral Chest 50 40 10 Urine 1965 910 870 Other: Voiding Method Indwelling Catheter Indwelling Catheter # Bowel Movements 2 1 ABP, PAP, CO, CI - Last Documented Arterial Blood Pressure 141/73 Pulmonary Artery Pressure 43/32 Cardiac Output 3.9 Cardiac Index 2.3 - Exam Patient is lethargic, sleepy yet arousable. She is tolerating a full face BiPAP mask at a pressure of 12/5 cm of water. She is moving all 4 extremities. Motor function is weak both in the arms and the legs.Head exam was generally normal. There was no scleral icterus or corneal arcus. Mucous membranes were moist. Neck is short and supple and the patient has significant crowding of the posterior oropharynx. 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 Lungs sounds are diminished bilaterally along with some bibasilar crackles.Cardiac exam revealed the PMI to be normally situated and sized. The rhythm was regular and no extrasystoles were noted during several minutes of auscultation. The first and second heart sounds were normal and physiologic splitting of the second heart sound was noted. There were no murmurs, rubs, clicks, or gallops.Abdominal exam revealed normal bowel sounds. The abdomen was soft, non-tender, and without masses, organomegaly, or appreciable enlargement of the abdominal aorta. Extremities show trace edema and there is no cyanosis or clubbing at this point. - Labs CBC & Chem 7: 03/10/17 04:25 03/10/17 04:25 Labs: Abnormal Lab Results - Last 24 Hours (Table) 03/09/17 03/09/17 03/09/17 Range/Units 14:32 15:07 17:21 WBC (3.8-10.6) k/uL RBC (3.80-5.40) m/uL Hgb (11.4-16.0) gm/dL Hct (34.0-46.0) % MCV (80.0-100.0) fL MCH (25.0-35.0) pg RDW (11.5-15.5) % Monocytes # (Manual) (0-1.0) k/uL Nucleated RBCs (0-0) /100 WBC ABG pH (7.35-7.45) ABG pCO2 (35-45) mmHg ABG pO2 (83-108) mmHg ABG Total CO2 (19-24) mmol/L Sodium (137-145) mmol/L Chloride (98-107) mmol/L BUN (7-17) mg/dL Creatinine (0.52-1.04) mg/dL Glucose (74-99) mg/dL POC Glucose (mg/dL) 117 H 124 H 111 H (75-99) mg/dL Calcium (8.4-10.2) mg/dL Magnesium (1.6-2.3) mg/dL AST (14-36) U/L ALT (9-52) U/L Alkaline Phosphatase (38-126) U/L Total Protein (6.3-8.2) g/dL Albumin (3.5-5.0) g/dL 03/09/17 03/09/17 03/09/17 Range/Units 18:06 18:57 21:49 WBC (3.8-10.6) k/uL RBC (3.80-5.40) m/uL Hgb (11.4-16.0) gm/dL Hct (34.0-46.0) % MCV (80.0-100.0) fL MCH (25.0-35.0) pg RDW (11.5-15.5) % Monocytes # (Manual) (0-1.0) k/uL Nucleated RBCs (0-0) /100 WBC ABG pH (7.35-7.45) ABG pCO2 (35-45) mmHg ABG pO2 (83-108) mmHg ABG Total CO2 (19-24) mmol/L Sodium (137-145) mmol/L Chloride (98-107) mmol/L BUN (7-17) mg/dL Creatinine (0.52-1.04) mg/dL Glucose (74-99) mg/dL POC Glucose (mg/dL) 121 H 119 H 71 L (75-99) mg/dL Calcium (8.4-10.2) mg/dL Magnesium (1.6-2.3) mg/dL AST (14-36) U/L ALT (9-52) U/L Alkaline Phosphatase (38-126) U/L Total Protein (6.3-8.2) g/dL Albumin (3.5-5.0) g/dL 03/09/17 03/10/17 03/10/17 Range/Units 22:09 00:03 01:04 WBC (3.8-10.6) k/uL RBC (3.80-5.40) m/uL Hgb (11.4-16.0) gm/dL Hct (34.0-46.0) % MCV (80.0-100.0) fL MCH (25.0-35.0) pg RDW (11.5-15.5) % Monocytes # (Manual) (0-1.0) k/uL Nucleated RBCs (0-0) /100 WBC ABG pH (7.35-7.45) ABG pCO2 (35-45) mmHg ABG pO2 (83-108) mmHg ABG Total CO2 (19-24) mmol/L Sodium (137-145) mmol/L Chloride (98-107) mmol/L BUN (7-17) mg/dL Creatinine (0.52-1.04) mg/dL Glucose (74-99) mg/dL POC Glucose (mg/dL) 74 L 122 H 123 H (75-99) mg/dL Calcium (8.4-10.2) mg/dL Magnesium (1.6-2.3) mg/dL AST (14-36) U/L ALT (9-52) U/L Alkaline Phosphatase (38-126) U/L Total Protein (6.3-8.2) g/dL Albumin (3.5-5.0) g/dL 03/10/17 03/10/17 03/10/17 Range/Units 02:58 04:17 04:25 WBC (3.8-10.6) k/uL RBC (3.80-5.40) m/uL Hgb (11.4-16.0) gm/dL Hct (34.0-46.0) % MCV (80.0-100.0) fL MCH (25.0-35.0) pg RDW (11.5-15.5) % Monocytes # (Manual) (0-1.0) k/uL Nucleated RBCs (0-0) /100 WBC ABG pH (7.35-7.45) ABG pCO2 (35-45) mmHg ABG pO2 (83-108) mmHg ABG Total CO2 (19-24) mmol/L Sodium 146 H (137-145) mmol/L Chloride 115 H (98-107) mmol/L BUN 52 H (7-17) mg/dL Creatinine 1.30 H (0.52-1.04) mg/dL Glucose 119 H (74-99) mg/dL POC Glucose (mg/dL) 105 H 129 H (75-99) mg/dL Calcium 7.7 L (8.4-10.2) mg/dL Magnesium 2.4 H (1.6-2.3) mg/dL AST 95 H (14-36) U/L ALT 125 H (9-52) U/L Alkaline Phosphatase 225 H (38-126) U/L Total Protein 4.3 L (6.3-8.2) g/dL Albumin 2.2 L (3.5-5.0) g/dL 03/10/17 03/10/17 03/10/17 Range/Units 04:25 05:06 05:27 WBC 10.7 H (3.8-10.6) k/uL RBC 3.06 L (3.80-5.40) m/uL Hgb 7.2 L (11.4-16.0) gm/dL Hct 22.9 L (34.0-46.0) % MCV 74.9 L (80.0-100.0) fL MCH 23.7 L (25.0-35.0) pg RDW 24.6 H (11.5-15.5) % Monocytes # (Manual) 1.28 H (0-1.0) k/uL Nucleated RBCs 9 H (0-0) /100 WBC ABG pH 7.51 H (7.35-7.45) ABG pCO2 28 L (35-45) mmHg ABG pO2 68 L (83-108) mmHg ABG Total CO2 (19-24) mmol/L Sodium (137-145) mmol/L Chloride (98-107) mmol/L BUN (7-17) mg/dL Creatinine (0.52-1.04) mg/dL Glucose (74-99) mg/dL POC Glucose (mg/dL) 125 H (75-99) mg/dL Calcium (8.4-10.2) mg/dL Magnesium (1.6-2.3) mg/dL AST (14-36) U/L ALT (9-52) U/L Alkaline Phosphatase (38-126) U/L Total Protein (6.3-8.2) g/dL Albumin (3.5-5.0) g/dL 03/10/17 03/10/17 03/10/17 Range/Units 06:15 07:06 08:24 WBC (3.8-10.6) k/uL RBC (3.80-5.40) m/uL Hgb (11.4-16.0) gm/dL Hct (34.0-46.0) % MCV (80.0-100.0) fL MCH (25.0-35.0) pg RDW (11.5-15.5) % Monocytes # (Manual) (0-1.0) k/uL Nucleated RBCs (0-0) /100 WBC ABG pH (7.35-7.45) ABG pCO2 (35-45) mmHg ABG pO2 (83-108) mmHg ABG Total CO2 (19-24) mmol/L Sodium (137-145) mmol/L Chloride (98-107) mmol/L BUN (7-17) mg/dL Creatinine (0.52-1.04) mg/dL Glucose (74-99) mg/dL POC Glucose (mg/dL) 112 H 124 H 116 H (75-99) mg/dL Calcium (8.4-10.2) mg/dL Magnesium (1.6-2.3) mg/dL AST (14-36) U/L ALT (9-52) U/L Alkaline Phosphatase (38-126) U/L Total Protein (6.3-8.2) g/dL Albumin (3.5-5.0) g/dL 03/10/17 03/10/17 03/10/17 Range/Units 08:57 12:01 12:59 WBC (3.8-10.6) k/uL RBC (3.80-5.40) m/uL Hgb (11.4-16.0) gm/dL Hct (34.0-46.0) % MCV (80.0-100.0) fL MCH (25.0-35.0) pg RDW (11.5-15.5) % Monocytes # (Manual) (0-1.0) k/uL Nucleated RBCs (0-0) /100 WBC ABG pH (7.35-7.45) ABG pCO2 (35-45) mmHg ABG pO2 (83-108) mmHg ABG Total CO2 (19-24) mmol/L Sodium (137-145) mmol/L Chloride (98-107) mmol/L BUN (7-17) mg/dL Creatinine (0.52-1.04) mg/dL Glucose (74-99) mg/dL POC Glucose (mg/dL) 125 H 128 H 159 H (75-99) mg/dL Calcium (8.4-10.2) mg/dL Magnesium (1.6-2.3) mg/dL AST (14-36) U/L ALT (9-52) U/L Alkaline Phosphatase (38-126) U/L Total Protein (6.3-8.2) g/dL Albumin (3.5-5.0) g/dL 03/10/17 Range/Units 13:10 WBC (3.8-10.6) k/uL RBC (3.80-5.40) m/uL Hgb (11.4-16.0) gm/dL Hct (34.0-46.0) % MCV (80.0-100.0) fL MCH (25.0-35.0) pg RDW (11.5-15.5) % Monocytes # (Manual) (0-1.0) k/uL Nucleated RBCs (0-0) /100 WBC ABG pH (7.35-7.45) ABG pCO2 (35-45) mmHg ABG pO2 76 L (83-108) mmHg ABG Total CO2 25 H (19-24) mmol/L Sodium (137-145) mmol/L Chloride (98-107) mmol/L BUN (7-17) mg/dL Creatinine (0.52-1.04) mg/dL Glucose (74-99) mg/dL POC Glucose (mg/dL) (75-99) mg/dL Calcium (8.4-10.2) mg/dL Magnesium (1.6-2.3) mg/dL AST (14-36) U/L ALT (9-52) U/L Alkaline Phosphatase (38-126) U/L Total Protein (6.3-8.2) g/dL Albumin (3.5-5.0) g/dL Microbiology - Last 24 Hours (Table) 03/09/17 21:12 Gram Stain - Preliminary Drainage Wound Culture - Preliminary 03/09/17 21:12 Gram Stain - Preliminary Drainage Wound Culture - Preliminary Assessment and Plan Plan: Assessment 1 aortic valve replacement for severe bicuspid aortic valve stenosis, patient is postop day #6 2 postoperative mediastinal bleeding, post reexploration and control of bleed and post transfusion with packed RBCs, FFP and platelets. Currently the chest tubes are all dry clean and intact and the mediastinal chest tubes and the right -sided chest tube was removed and the patient only has a left pleural chest tube in place. 3 anemia, multifactorial. The morning hemoglobin is at 7.2. No evidence of any acute bleeding. 4 postoperative respiratory failure, expected outcome of surgery. Patient was difficult to wean and extubate due to some oxygenation problems initially and currently she is extubated to BiPAP at a pressure of 12/5 cm of water. We're monitoring her very closely in the ICU. The post exhibition blood gases one on the BiPAP showed adequate oxygenation and ventilation. Nevertheless, I'm still concerned of this patient's ability to maintain BiPAP therapy and protect her airways. She is off sedation. I'm willing to wait on her for another few hours and assess his progression. She May ultimately may get intubated if her condition and respiratory status does not improve. 5 diabetes mellitus currently on insulin drip for blood sugar control 6 hypertension, with post extubation increase his blood pressure, being monitored, given IV Lopressor. 7 CVA/TIA, history of 8 bronchial asthma, history of 9 obesity 10 restrictive lung physiology on preop spirometry with an FEV1 of 56% of predicted. 11 thrombocytopenia, improving Plan Continue BiPAP therapy at a pressure of 12/5 cm of water and FiO2 of 60%. Monitor the patient's mental status. Monitor breathing status very closely. She is a bit tachypneic and her respiratory rate is in the mid 30s. She'll be given 1 mg of Ativan IV. She'll be given for grams IV Lasix pH of a given 5 mg of IV Lopressor. Will monitor condition and her progression and there is a high likely that the patient may need to be reintubated. Condition remains critical. We'll monitor very closely in the ICU. We'll follow. Critically care evaluation that was done in 45 minutes. Time with Patient: Greater than 30
[2017-03-10] MEDS ORDERED: CISATRACURIUM 2 MG/ML 5 ML VIAL IV ONE (14:15)
[2017-03-10] MEDS ORDERED: NOREPINEPHRIN 4 MG-0.9% NS PMX 4 MG/250 ML ML IV ONE (14:34)
[2017-03-10 14:40] LABS: Glucose,Whole Blood 126 mg/dL (75-99)
--- NOTE | 2017-03-10 14:43 | XR ---
EXAMINATION TYPE: XR chest 1V portable DATE OF EXAM: 03/10/2017 COMPARISON: 03/10/2017 HISTORY: ET tube placement FINDINGS: There are bilateral pleural effusions with cardiomegaly and bibasilar infiltrate. There is a diffuse interstitial pattern. ET tube approximately 2 cm above tavia. Left-sided PICC line, NG tube and chest tube appears stable. NG tube noted. Postsurgical changes are stable. Arthropathy of the shoulders. Hypertrophic change of the spine with curvature noted. IMPRESSION: 1. Correlate for mild venous congestion with improved aeration at the left lung base and small persis tent bilateral effusions. 2. ET tube approximately 2 cm above tavia. 3. Postsurgical changes.
[2017-03-10] MEDS ORDERED: NOREPINEPHRIN 16 MG-0.9%NS PMX 16 MG/250 ML ML IV SCH (14:45)
[2017-03-10 15:29] LABS: Glucose,Whole Blood 113 mg/dL (75-99)
[2017-03-10 16:40] LABS: Glucose,Whole Blood 88 mg/dL (75-99)
[2017-03-10 17:05] LABS: ABG HCO3 23 mmol/L (21-25); ABG PCO2 35 mmHg (35-45); ABG PH 7.44 (7.35-7.45); ABG PO2 180 mmHg (83-108)
[2017-03-10 17:06] LABS: ABG Base Excess -0.5 mmol/L; ABG TCO2 24 mmol/L (19-24)
[2017-03-10 17:14] LABS: Glucose,Whole Blood 93 mg/dL (75-99)
[2017-03-10 18:05] LABS: Glucose,Whole Blood 96 mg/dL (75-99)
[2017-03-10] MEDS: OFLOXACIN 0.3% OPHTH DROPS 5 ML BOTTLE RIGHT EYE SCH (18:21)
[2017-03-10] MEDS: prednisoLONE ACETATE 1% OPHTH DROPS 1 ML BTL RIGHT EYE SCH (18:21)
[2017-03-10] MEDS: NOREPINEPHRIN 4 MG-0.9% NS PMX 4 MG/250 ML ML IV SCH (18:27)
[2017-03-10 19:15] LABS: Glucose,Whole Blood 120 mg/dL (75-99)
[2017-03-10 20:01] LABS: Glucose,Whole Blood 126 mg/dL (75-99)
[2017-03-10 21:17] LABS: Glucose,Whole Blood 99 mg/dL (75-99)
[2017-03-10] MEDS: SENNOSIDES-DOCUSATE SODIUM 1 EACH TAB PO SCH (21:53)
[2017-03-10] MEDS: MORPHINE SULFATE 2 MG/ML SYRINGE IVP PRN (22:02)
[2017-03-10 22:07] LABS: Glucose,Whole Blood 114 mg/dL (75-99)
[2017-03-10 23:59] LABS: Glucose,Whole Blood 146 mg/dL (75-99)
[2017-03-11 00:35] LABS: Calcium 7.7 mg/dL (8.4-10.2); Magnesium 2.4 mg/dL (1.6-2.3); Potassium 4.3 mmol/L (3.5-5.1)
[2017-03-11] MEDS: prednisoLONE ACETATE 1% OPHTH DROPS 1 ML BTL RIGHT EYE SCH ×4 (00:44→18:21)
[2017-03-11] MEDS: OFLOXACIN 0.3% OPHTH DROPS 5 ML BOTTLE RIGHT EYE SCH ×4 (00:44→18:21)
[2017-03-11] MEDS: SODIUM CHLORIDE 0.9% 1,000 ML IV SCH (00:45)
[2017-03-11] MEDS: PROPOFOL 1,000 MG/100 ML VIAL IV SCH ×4 (00:59→20:08)
[2017-03-11 01:25] LABS: Glucose,Whole Blood 115 mg/dL (75-99)
[2017-03-11 02:10] LABS: Glucose,Whole Blood 102 mg/dL (75-99)
[2017-03-11] MEDS: IPRATROPIUM-ALBUTEROL 3 ML NEB INHALATION SCH ×6 (03:02→23:14)
[2017-03-11 03:06] LABS: Glucose,Whole Blood 135 mg/dL (75-99)
[2017-03-11 04:07] LABS: Glucose,Whole Blood 121 mg/dL (75-99)
[2017-03-11] MEDS: AMIODARONE 450 MG in DEXTROSE 5% IN WATER 250 ML IV SCH ×2 (04:11)
[2017-03-11 04:34] LABS: ABG Base Excess 0.6 mmol/L; ABG HCO3 25 mmol/L (21-25); ABG PCO2 38 mmHg (35-45); ABG PH 7.42 (7.35-7.45); ABG PO2 136 mmHg (83-108); ABG TCO2 26 mmol/L (19-24)
[2017-03-11 05:51] LABS: Glucose,Whole Blood 113 mg/dL (75-99)
[2017-03-11 06:03] LABS: Anisocytosis Marked; CH 23.9; CHCM 31.4; HCT 23.9 % (34.0-46.0); HDW 3.49; HGB 7.5 gm/dL (11.4-16.0); Hypochromasia Moderate; MCH 24.1 pg (25.0-35.0); MCHC 31.4 g/dL (31.0-37.0); MCV 76.6 fL (80.0-100.0); Microcytosis Marked; Poikilocytosis Slight; RBC 3.12 m/uL (3.80-5.40); WBC 13.6 k/uL (3.8-10.6)
[2017-03-11 06:05] LABS: RDW 25.3 % (11.5-15.5)
[2017-03-11 06:14] LABS: Calcium 7.4 mg/dL (8.4-10.2); Magnesium 2.5 mg/dL (1.6-2.3); Potassium 3.8 mmol/L (3.5-5.1); Total Bilirubin 0.8 mg/dL (0.2-1.3); Total Protein 4.5 g/dL (6.3-8.2)
[2017-03-11] MEDS: HEPARIN SODIUM,PORCINE 5,000 UNIT/ML 1 ML VIAL SQ SCH ×3 (06:17→20:06)
[2017-03-11] MEDS ORDERED: Potassium Replacement Protocol 1 EACH MISC MISCELLANE PRN (06:59)
[2017-03-11] MEDS ORDERED: POTASSIUM CHLORIDE ORAL LIQUID 40 MEQ/30 ML CUP NG-TUBE SCH (07:00)
[2017-03-11 07:08] LABS: Glucose,Whole Blood 156 mg/dL (75-99)
--- NOTE | 2017-03-11 07:16 | XR ---
EXAMINATION TYPE: XR chest 1V portable DATE OF EXAM: 03/11/2017 COMPARISON: Prior chest x-ray 03/10/2017 HISTORY: Intubated TECHNIQUE: Single frontal view of the chest is obtained. FINDINGS: Endotracheal tube, NG tube, left-sided PICC line, post median sternal change all again not ed. Left-sided chest tube has been removed. No evident pneumothorax. Retrocardiac density is present. Minimal patchy basilar density present on the right. Patient is rotated. Patient is status post card iac valve replacement. The heart remains enlarged. Atrial appendage clipping is noted. IMPRESSION: Cardiomegaly. Lower lobe atelectasis versus edema, correlate to exclude pneumonia.
[2017-03-11] MEDS: ASPIRIN 325 MG TAB PO SCH (08:00)
[2017-03-11] MEDS: PANTOPRAZOLE 40 MG/10 ML VIAL IVP SCH (08:00)
[2017-03-11] MEDS: CLOPIDOGREL 75 MG TAB PO SCH (08:00)
[2017-03-11] MEDS: CHLORHEXIDINE GLUCONATE 15 ML CUP MUCOUS MEM SCH ×2 (08:01→20:06)
[2017-03-11] MEDS: METOPROLOL TARTRATE 25 MG TAB PO SCH ×2 (08:01→20:03)
[2017-03-11] MEDS: CALCIUM CARB-VIT D 500MG-200UN 1 EACH TAB PO SCH (08:01)
[2017-03-11 08:04] LABS: Glucose,Whole Blood 142 mg/dL (75-99)
[2017-03-11] MEDS ORDERED: FUROSEMIDE 10 MG/ML 4 ML VIAL IV STA (08:51)
[2017-03-11] MEDS ORDERED: DIGOXIN 250 MCG/ML 2 ML AMP IVP STA (08:51)
--- NOTE | 2017-03-11 08:54 | P.PN ---
Subjective Principal diagnosis: Status post aVR This is a pleasant 76-year-old female patient who sees Dr. STELLA Lazaro as an outpatient who was diagnosed recently with symptomatic severe aortic stenosis secondary to bicuspid aortic valve. The patient underwent aVR using a bioprosthetic aortic valve. The patient was extubated yesterday but she was reintubated again. Hemodynamically she required small dose of Levaquin yesterday but currently she is not on any Levophed. She has been in and out of atrial fibrillation and currently she seems to be in A. fib with heart rate around 100 beats per minutes. She was started on digoxin by the surgical team. We need to discuss with them the need to have anticoagulation on board. Objective - Vital Signs Vital signs: Vital Signs Temp 98.7 F 03/11/17 04:00 Pulse 110 H 03/11/17 07:37 Resp 27 H 03/11/17 07:30 BP 122/53 03/07/17 13:00 Pulse Ox 98 03/11/17 07:30 Intake & Output 03/10/17 03/11/17 03/11/17 18:59 06:59 18:59 Intake Total 019.659 0838.362 147.980 Output Total 1735 1080 90 Balance -1036.742 -77.638 57.980 Weight 88.8 kg Intake: IV 476 516 43 Dextrose 5% in Water 1, 400 480 40 000 ml @ 40 mls/hr IV . Q24H [facility] Rx#:[id number] Sodium Chloride 0.9% 1, 40 000 ml @ 20 mls/hr IV . Q24H [facility] Rx#:[id number] pressure bag 36 36 3 Intake, IV Titration 142.258 126.362 104.980 Amount Amiodarone 450 mg In 46.662 Dextrose 5% in Water 250 ml @ 1 MG/MIN 33.33 mls/ hr IV .Q7H31M [facility] Rx#: [id number] Clevidipine Butyrate 25 0.067 mg In Empty Bag 1 bag @ 1 MG/HR 2 mls/hr IV .Q24H [facility] Rx#:[id number] Insulin Regular 100 unit 60.667 30.937 5.365 In Sodium Chloride 0.9% 100 ml @ Per Protocol IV .Q0M [facility] Rx#:[id number] Norepinephrin 4 mg-0.9% 14.251 Ns Pmx 4 mg In 250 ml @ Titrate IV .Q0M [facility] Rx#: [id number] Propofol 1,000 mg In 100 34.862 81.174 99.615 ml @ Titrate IV .Q0M [facility] Rx#:[id number] Tube Feeding 80 360 Output: Chest Tube Drainage 30 Left Lateral Chest 30 Urine 1705 905 90 Urine/Stool Mix 175 Other: Voiding Method Indwelling Catheter Indwelling Catheter # Bowel Movements 1 ABP, PAP, CO, CI - Last Documented Arterial Blood Pressure 153/85 Pulmonary Artery Pressure 43/32 Cardiac Output 3.9 Cardiac Index 2.3 - Constitutional General appearance: Present: no acute distress - Respiratory Respiratory: bilateral: diminished - Cardiovascular Rhythm: irregularly irregular - Labs CBC & Chem 7: 03/11/17 05:53 03/11/17 05:53 Labs: Abnormal Lab Results - Last 24 Hours (Table) 03/10/17 03/10/17 03/10/17 Range/Units 08:57 12:01 12:59 WBC (3.8-10.6) k/uL RBC (3.80-5.40) m/uL Hgb (11.4-16.0) gm/dL Hct (34.0-46.0) % MCV (80.0-100.0) fL MCH (25.0-35.0) pg RDW (11.5-15.5) % ABG pO2 (83-108) mmHg ABG Total CO2 (19-24) mmol/L ABG O2 Saturation (94-97) % Sodium (137-145) mmol/L Chloride (98-107) mmol/L BUN (7-17) mg/dL Creatinine (0.52-1.04) mg/dL Glucose (74-99) mg/dL POC Glucose (mg/dL) 125 H 128 H 159 H (75-99) mg/dL Calcium (8.4-10.2) mg/dL Phosphorus (2.5-4.5) mg/dL Magnesium (1.6-2.3) mg/dL AST (14-36) U/L ALT (9-52) U/L Alkaline Phosphatase (38-126) U/L Total Protein (6.3-8.2) g/dL Albumin (3.5-5.0) g/dL 03/10/17 03/10/17 03/10/17 Range/Units 13:10 14:38 15:20 WBC (3.8-10.6) k/uL RBC (3.80-5.40) m/uL Hgb (11.4-16.0) gm/dL Hct (34.0-46.0) % MCV (80.0-100.0) fL MCH (25.0-35.0) pg RDW (11.5-15.5) % ABG pO2 76 L 180 H (83-108) mmHg ABG Total CO2 25 H (19-24) mmol/L ABG O2 Saturation 100.0 H (94-97) % Sodium (137-145) mmol/L Chloride (98-107) mmol/L BUN (7-17) mg/dL Creatinine (0.52-1.04) mg/dL Glucose (74-99) mg/dL POC Glucose (mg/dL) 126 H (75-99) mg/dL Calcium (8.4-10.2) mg/dL Phosphorus (2.5-4.5) mg/dL Magnesium (1.6-2.3) mg/dL AST (14-36) U/L ALT (9-52) U/L Alkaline Phosphatase (38-126) U/L Total Protein (6.3-8.2) g/dL Albumin (3.5-5.0) g/dL 03/10/17 03/10/17 03/10/17 Range/Units 15:27 19:14 19:57 WBC (3.8-10.6) k/uL RBC (3.80-5.40) m/uL Hgb (11.4-16.0) gm/dL Hct (34.0-46.0) % MCV (80.0-100.0) fL MCH (25.0-35.0) pg RDW (11.5-15.5) % ABG pO2 (83-108) mmHg ABG Total CO2 (19-24) mmol/L ABG O2 Saturation (94-97) % Sodium (137-145) mmol/L Chloride (98-107) mmol/L BUN (7-17) mg/dL Creatinine (0.52-1.04) mg/dL Glucose (74-99) mg/dL POC Glucose (mg/dL) 113 H 120 H 126 H (75-99) mg/dL Calcium (8.4-10.2) mg/dL Phosphorus (2.5-4.5) mg/dL Magnesium (1.6-2.3) mg/dL AST (14-36) U/L ALT (9-52) U/L Alkaline Phosphatase (38-126) U/L Total Protein (6.3-8.2) g/dL Albumin (3.5-5.0) g/dL 03/10/17 03/10/17 03/10/17 Range/Units 22:06 23:55 23:57 WBC (3.8-10.6) k/uL RBC (3.80-5.40) m/uL Hgb (11.4-16.0) gm/dL Hct (34.0-46.0) % MCV (80.0-100.0) fL MCH (25.0-35.0) pg RDW (11.5-15.5) % ABG pO2 (83-108) mmHg ABG Total CO2 (19-24) mmol/L ABG O2 Saturation (94-97) % Sodium 146 H (137-145) mmol/L Chloride 111 H (98-107) mmol/L BUN 58 H (7-17) mg/dL Creatinine 1.30 H (0.52-1.04) mg/dL Glucose 139 H (74-99) mg/dL POC Glucose (mg/dL) 114 H 146 H (75-99) mg/dL Calcium 7.7 L (8.4-10.2) mg/dL Phosphorus (2.5-4.5) mg/dL Magnesium 2.4 H (1.6-2.3) mg/dL AST (14-36) U/L ALT (9-52) U/L Alkaline Phosphatase (38-126) U/L Total Protein (6.3-8.2) g/dL Albumin (3.5-5.0) g/dL 03/11/17 03/11/17 03/11/17 Range/Units 01:23 02:08 03:04 WBC (3.8-10.6) k/uL RBC (3.80-5.40) m/uL Hgb (11.4-16.0) gm/dL Hct (34.0-46.0) % MCV (80.0-100.0) fL MCH (25.0-35.0) pg RDW (11.5-15.5) % ABG pO2 (83-108) mmHg ABG Total CO2 (19-24) mmol/L ABG O2 Saturation (94-97) % Sodium (137-145) mmol/L Chloride (98-107) mmol/L BUN (7-17) mg/dL Creatinine (0.52-1.04) mg/dL Glucose (74-99) mg/dL POC Glucose (mg/dL) 115 H 102 H 135 H (75-99) mg/dL Calcium (8.4-10.2) mg/dL Phosphorus (2.5-4.5) mg/dL Magnesium (1.6-2.3) mg/dL AST (14-36) U/L ALT (9-52) U/L Alkaline Phosphatase (38-126) U/L Total Protein (6.3-8.2) g/dL Albumin (3.5-5.0) g/dL 03/11/17 03/11/17 03/11/17 Range/Units 04:02 04:17 05:48 WBC (3.8-10.6) k/uL RBC (3.80-5.40) m/uL Hgb (11.4-16.0) gm/dL Hct (34.0-46.0) % MCV (80.0-100.0) fL MCH (25.0-35.0) pg RDW (11.5-15.5) % ABG pO2 136 H (83-108) mmHg ABG Total CO2 26 H (19-24) mmol/L ABG O2 Saturation 99.0 H (94-97) % Sodium (137-145) mmol/L Chloride (98-107) mmol/L BUN (7-17) mg/dL Creatinine (0.52-1.04) mg/dL Glucose (74-99) mg/dL POC Glucose (mg/dL) 121 H 113 H (75-99) mg/dL Calcium (8.4-10.2) mg/dL Phosphorus (2.5-4.5) mg/dL Magnesium (1.6-2.3) mg/dL AST (14-36) U/L ALT (9-52) U/L Alkaline Phosphatase (38-126) U/L Total Protein (6.3-8.2) g/dL Albumin (3.5-5.0) g/dL 03/11/17 03/11/17 03/11/17 Range/Units 05:53 05:53 07:05 WBC 13.6 H (3.8-10.6) k/uL RBC 3.12 L (3.80-5.40) m/uL Hgb 7.5 L (11.4-16.0) gm/dL Hct 23.9 L (34.0-46.0) % MCV 76.6 L (80.0-100.0) fL MCH 24.1 L (25.0-35.0) pg RDW 25.3 H (11.5-15.5) % ABG pO2 (83-108) mmHg ABG Total CO2 (19-24) mmol/L ABG O2 Saturation (94-97) % Sodium 148 H (137-145) mmol/L Chloride 114 H (98-107) mmol/L BUN 57 H (7-17) mg/dL Creatinine 1.29 H (0.52-1.04) mg/dL Glucose 108 H (74-99) mg/dL POC Glucose (mg/dL) 156 H (75-99) mg/dL Calcium 7.4 L (8.4-10.2) mg/dL Phosphorus 5.0 H (2.5-4.5) mg/dL Magnesium 2.5 H (1.6-2.3) mg/dL AST 52 H (14-36) U/L ALT 94 H (9-52) U/L Alkaline Phosphatase 180 H (38-126) U/L Total Protein 4.5 L (6.3-8.2) g/dL Albumin 2.3 L (3.5-5.0) g/dL 03/11/17 Range/Units 07:58 WBC (3.8-10.6) k/uL RBC (3.80-5.40) m/uL Hgb (11.4-16.0) gm/dL Hct (34.0-46.0) % MCV (80.0-100.0) fL MCH (25.0-35.0) pg RDW (11.5-15.5) % ABG pO2 (83-108) mmHg ABG Total CO2 (19-24) mmol/L ABG O2 Saturation (94-97) % Sodium (137-145) mmol/L Chloride (98-107) mmol/L BUN (7-17) mg/dL Creatinine (0.52-1.04) mg/dL Glucose (74-99) mg/dL POC Glucose (mg/dL) 142 H (75-99) mg/dL Calcium (8.4-10.2) mg/dL Phosphorus (2.5-4.5) mg/dL Magnesium (1.6-2.3) mg/dL AST (14-36) U/L ALT (9-52) U/L Alkaline Phosphatase (38-126) U/L Total Protein (6.3-8.2) g/dL Albumin (3.5-5.0) g/dL Microbiology - Last 24 Hours (Table) 03/09/17 21:12 Gram Stain - Preliminary Drainage Wound Culture - Preliminary 03/09/17 21:12 Gram Stain - Preliminary Drainage Wound Culture - Preliminary Assessment and Plan Plan: Assessment Status post aVR using bioprosthetic valve Acute respiratory failure Possible AV don dysfunction. Plan The patient has been in and out atrial fibrillation Continue dual antiplatelet therapy and statin Discussed with the surgical team the need for anticoagulation Continue monitor the liver function tests The statin was stopped because of the liver function test abnormalities.
--- NOTE | 2017-03-11 09:31 | P.PN ---
Subjective Principal diagnosis: Bicuspid aortic valve with critical aortic stenosis, aortic insufficiency. CAD. Diabetes mellitus. Hypertension. History of TIAs, neuropathy, pericarditis, scoliosis, brain concussion. History of paroxysmal atrial fibrillation POD #7 elective aortic valve replacement with #25 mm magna ease bioprosthetic aortic valve, a clip ligation into left atrial appendage with a #35 mm AtriClip and intraoperative transesophageal echocardiogram. Postoperative acute blood loss anemia, a potential expected outcome of surgery. POD #7 reexploration of the chest, evacuation of clot, control of bleed. Postoperative hypoxic respiratory failure requiring prolonged mechanical ventilation, a potential expected outcome of surgery. POD #5 placement of right pleural chest tube for pleural effusion Postoperative hypovolemic shock, inherent to the surgery Postoperative paroxysmal atrial fibrillation, and expected outcome of surgery Currently sedated on mechanical ventilation. The patient was extubated to BiPAP yesterday which she tolerated very very short time. Subsequently she became hypoxic, hypertensive, and tachycardic with atrial fibrillation with rapid ventricular response. She was reintubated, became normotensive, and returned to sinus rhythm with a first-degree AV block. This morning she was in uncontrolled A. fib again with stimulation. Left pleural chest tube was discontinued yesterday. Objective - Vital Signs Vital signs: Vital Signs Temp 98.7 F 03/11/17 04:00 Pulse 110 H 03/11/17 07:37 Resp 27 H 03/11/17 07:30 BP 122/53 03/07/17 13:00 Pulse Ox 98 03/11/17 07:30 Intake & Output 03/10/17 03/11/17 03/11/17 18:59 06:59 18:59 Intake Total 947.917 6752.362 147.980 Output Total 1735 1080 90 Balance -1036.742 -77.638 57.980 Weight 88.8 kg Intake: IV 476 516 43 Dextrose 5% in Water 1, 400 480 40 000 ml @ 40 mls/hr IV . Q24H [facility] Rx#:[id number] Sodium Chloride 0.9% 1, 40 000 ml @ 20 mls/hr IV . Q24H [facility] Rx#:[id number] pressure bag 36 36 3 Intake, IV Titration 142.258 126.362 104.980 Amount Amiodarone 450 mg In 46.662 Dextrose 5% in Water 250 ml @ 1 MG/MIN 33.33 mls/ hr IV .Q7H31M [facility] Rx#: [id number] Clevidipine Butyrate 25 0.067 mg In Empty Bag 1 bag @ 1 MG/HR 2 mls/hr IV .Q24H [facility] Rx#:[id number] Insulin Regular 100 unit 60.667 30.937 5.365 In Sodium Chloride 0.9% 100 ml @ Per Protocol IV .Q0M [facility] Rx#:[id number] Norepinephrin 4 mg-0.9% 14.251 Ns Pmx 4 mg In 250 ml @ Titrate IV .Q0M [facility] Rx#: [id number] Propofol 1,000 mg In 100 34.862 81.174 99.615 ml @ Titrate IV .Q0M [facility] Rx#:[id number] Tube Feeding 80 360 Output: Chest Tube Drainage 30 Left Lateral Chest 30 Urine 1705 905 90 Urine/Stool Mix 175 Other: Voiding Method Indwelling Catheter Indwelling Catheter # Bowel Movements 1 ABP, PAP, CO, CI - Last Documented Arterial Blood Pressure 153/85 Pulmonary Artery Pressure 43/32 Cardiac Output 3.9 Cardiac Index 2.3 - Constitutional General appearance: Present: no acute distress, obese - Respiratory Details: Lungs sounds diminished, coarse in the bases. Respirations even, nonlabored on mechanical ventilation. Current settings assist control mode, FiO2 50%, tidal volume 400, respiratory rate 20, PEEP 7. - Cardiovascular Details: S1, S2 present. Irregular rate and rhythm, uncontrolled atrial fibrillation on telemetry. A/V epicardial pacemaker wires present, connected to generator, VVI mode was a backup rate of 50 beats per minutes. Sternum stable. Right radial arterial line, left brachial PICC line present. Generalized edema present. Heart hugger, teds, SCDs present. - Gastrointestinal Gastrointestinal Comment(s): Abdomen soft, nontender, nondistended, round. Active bowel sounds 4 quadrants. Tolerating Vital tube feeding at 40 mL per hour which is goal. Positive bowel movements. - Genitourinary Genitourinary Comment(s): Cuellar present draining clear, yellow urine. Output 75-150 mL per hour. - Integumentary Integumentary Comment(s): Anterior chest incision well approximated and covered with dry intact dressing. Small amount of serous drainage from mediastinal chest tube site, covered with 4 x 4. - Neurologic Neurologic Comment(s): Currently sedated on mechanical ventilation. Off sedation does open eyes, moves arms. - Musculoskeletal Musculoskeletal: Present: generalized weakness - Allied health notes Allied health notes reviewed: nursing - Labs CBC & Chem 7: 03/11/17 05:53 03/11/17 05:53 Labs: Abnormal Lab Results - Last 24 Hours (Table) 03/10/17 03/10/17 03/10/17 Range/Units 12:01 12:59 13:10 WBC (3.8-10.6) k/uL RBC (3.80-5.40) m/uL Hgb (11.4-16.0) gm/dL Hct (34.0-46.0) % MCV (80.0-100.0) fL MCH (25.0-35.0) pg RDW (11.5-15.5) % ABG pO2 76 L (83-108) mmHg ABG Total CO2 25 H (19-24) mmol/L ABG O2 Saturation (94-97) % Sodium (137-145) mmol/L Chloride (98-107) mmol/L BUN (7-17) mg/dL Creatinine (0.52-1.04) mg/dL Glucose (74-99) mg/dL POC Glucose (mg/dL) 128 H 159 H (75-99) mg/dL Calcium (8.4-10.2) mg/dL Phosphorus (2.5-4.5) mg/dL Magnesium (1.6-2.3) mg/dL AST (14-36) U/L ALT (9-52) U/L Alkaline Phosphatase (38-126) U/L Total Protein (6.3-8.2) g/dL Albumin (3.5-5.0) g/dL 03/10/17 03/10/17 03/10/17 Range/Units 14:38 15:20 15:27 WBC (3.8-10.6) k/uL RBC (3.80-5.40) m/uL Hgb (11.4-16.0) gm/dL Hct (34.0-46.0) % MCV (80.0-100.0) fL MCH (25.0-35.0) pg RDW (11.5-15.5) % ABG pO2 180 H (83-108) mmHg ABG Total CO2 (19-24) mmol/L ABG O2 Saturation 100.0 H (94-97) % Sodium (137-145) mmol/L Chloride (98-107) mmol/L BUN (7-17) mg/dL Creatinine (0.52-1.04) mg/dL Glucose (74-99) mg/dL POC Glucose (mg/dL) 126 H 113 H (75-99) mg/dL Calcium (8.4-10.2) mg/dL Phosphorus (2.5-4.5) mg/dL Magnesium (1.6-2.3) mg/dL AST (14-36) U/L ALT (9-52) U/L Alkaline Phosphatase (38-126) U/L Total Protein (6.3-8.2) g/dL Albumin (3.5-5.0) g/dL 03/10/17 03/10/17 03/10/17 Range/Units 19:14 19:57 22:06 WBC (3.8-10.6) k/uL RBC (3.80-5.40) m/uL Hgb (11.4-16.0) gm/dL Hct (34.0-46.0) % MCV (80.0-100.0) fL MCH (25.0-35.0) pg RDW (11.5-15.5) % ABG pO2 (83-108) mmHg ABG Total CO2 (19-24) mmol/L ABG O2 Saturation (94-97) % Sodium (137-145) mmol/L Chloride (98-107) mmol/L BUN (7-17) mg/dL Creatinine (0.52-1.04) mg/dL Glucose (74-99) mg/dL POC Glucose (mg/dL) 120 H 126 H 114 H (75-99) mg/dL Calcium (8.4-10.2) mg/dL Phosphorus (2.5-4.5) mg/dL Magnesium (1.6-2.3) mg/dL AST (14-36) U/L ALT (9-52) U/L Alkaline Phosphatase (38-126) U/L Total Protein (6.3-8.2) g/dL Albumin (3.5-5.0) g/dL 03/10/17 03/10/17 03/11/17 Range/Units 23:55 23:57 01:23 WBC (3.8-10.6) k/uL RBC (3.80-5.40) m/uL Hgb (11.4-16.0) gm/dL Hct (34.0-46.0) % MCV (80.0-100.0) fL MCH (25.0-35.0) pg RDW (11.5-15.5) % ABG pO2 (83-108) mmHg ABG Total CO2 (19-24) mmol/L ABG O2 Saturation (94-97) % Sodium 146 H (137-145) mmol/L Chloride 111 H (98-107) mmol/L BUN 58 H (7-17) mg/dL Creatinine 1.30 H (0.52-1.04) mg/dL Glucose 139 H (74-99) mg/dL POC Glucose (mg/dL) 146 H 115 H (75-99) mg/dL Calcium 7.7 L (8.4-10.2) mg/dL Phosphorus (2.5-4.5) mg/dL Magnesium 2.4 H (1.6-2.3) mg/dL AST (14-36) U/L ALT (9-52) U/L Alkaline Phosphatase (38-126) U/L Total Protein (6.3-8.2) g/dL Albumin (3.5-5.0) g/dL 03/11/17 03/11/17 03/11/17 Range/Units 02:08 03:04 04:02 WBC (3.8-10.6) k/uL RBC (3.80-5.40) m/uL Hgb (11.4-16.0) gm/dL Hct (34.0-46.0) % MCV (80.0-100.0) fL MCH (25.0-35.0) pg RDW (11.5-15.5) % ABG pO2 (83-108) mmHg ABG Total CO2 (19-24) mmol/L ABG O2 Saturation (94-97) % Sodium (137-145) mmol/L Chloride (98-107) mmol/L BUN (7-17) mg/dL Creatinine (0.52-1.04) mg/dL Glucose (74-99) mg/dL POC Glucose (mg/dL) 102 H 135 H 121 H (75-99) mg/dL Calcium (8.4-10.2) mg/dL Phosphorus (2.5-4.5) mg/dL Magnesium (1.6-2.3) mg/dL AST (14-36) U/L ALT (9-52) U/L Alkaline Phosphatase (38-126) U/L Total Protein (6.3-8.2) g/dL Albumin (3.5-5.0) g/dL 03/11/17 03/11/17 03/11/17 Range/Units 04:17 05:48 05:53 WBC 13.6 H (3.8-10.6) k/uL RBC 3.12 L (3.80-5.40) m/uL Hgb 7.5 L (11.4-16.0) gm/dL Hct 23.9 L (34.0-46.0) % MCV 76.6 L (80.0-100.0) fL MCH 24.1 L (25.0-35.0) pg RDW 25.3 H (11.5-15.5) % ABG pO2 136 H (83-108) mmHg ABG Total CO2 26 H (19-24) mmol/L ABG O2 Saturation 99.0 H (94-97) % Sodium (137-145) mmol/L Chloride (98-107) mmol/L BUN (7-17) mg/dL Creatinine (0.52-1.04) mg/dL Glucose (74-99) mg/dL POC Glucose (mg/dL) 113 H (75-99) mg/dL Calcium (8.4-10.2) mg/dL Phosphorus (2.5-4.5) mg/dL Magnesium (1.6-2.3) mg/dL AST (14-36) U/L ALT (9-52) U/L Alkaline Phosphatase (38-126) U/L Total Protein (6.3-8.2) g/dL Albumin (3.5-5.0) g/dL 03/11/17 03/11/17 03/11/17 Range/Units 05:53 07:05 07:58 WBC (3.8-10.6) k/uL RBC (3.80-5.40) m/uL Hgb (11.4-16.0) gm/dL Hct (34.0-46.0) % MCV (80.0-100.0) fL MCH (25.0-35.0) pg RDW (11.5-15.5) % ABG pO2 (83-108) mmHg ABG Total CO2 (19-24) mmol/L ABG O2 Saturation (94-97) % Sodium 148 H (137-145) mmol/L Chloride 114 H (98-107) mmol/L BUN 57 H (7-17) mg/dL Creatinine 1.29 H (0.52-1.04) mg/dL Glucose 108 H (74-99) mg/dL POC Glucose (mg/dL) 156 H 142 H (75-99) mg/dL Calcium 7.4 L (8.4-10.2) mg/dL Phosphorus 5.0 H (2.5-4.5) mg/dL Magnesium 2.5 H (1.6-2.3) mg/dL AST 52 H (14-36) U/L ALT 94 H (9-52) U/L Alkaline Phosphatase 180 H (38-126) U/L Total Protein 4.5 L (6.3-8.2) g/dL Albumin 2.3 L (3.5-5.0) g/dL Microbiology - Last 24 Hours (Table) 03/09/17 21:12 Gram Stain - Preliminary Drainage Wound Culture - Preliminary 03/09/17 21:12 Gram Stain - Preliminary Drainage Wound Culture - Preliminary - Imaging and Cardiology Chest x-ray: report reviewed, image reviewed Assessment and Plan (1) History of TIA (transient ischemic attack) Status: Acute (2) Hyperlipidemia Status: Acute (3) Osteoarthritis Status: Acute (4) Acute blood loss as cause of postoperative anemia Status: Acute (5) Paroxysmal atrial fibrillation Status: Acute (6) Status post aortic valve replacement Status: Acute (7) Bicuspid aortic valve Status: Acute (8) Diabetes mellitus, insulin dependent (IDDM), controlled Status: Acute (9) Hypertension Status: Acute (10) Severe aortic stenosis Status: Acute Plan: 1. Continue aspirin, Plavix, beta daysi, JENNIFER inhibitor. Statin on hold secondary to elevated liver enzymes, will restart when able. Will maximize beta daysi therapy as able. 2. Will start IV digoxin for rate control. 3. Wean O2 as tolerated. Ventilatory support per pulmonary services. Recommend CPAP trials 1-3 hours at a time, 3 times a day. 4. Lasix 40 mg IV push given 1 today. 5. Check residual from OG tube every 4 hours. 6. Continue Cuellar for strict accurate intake and output. 7. Monitor daily labs, chest x-rays. 8. GI/DVT prophylaxis. 9. Insulin management per primary service. 10. More recommendations as patient progresses. Time with Patient: Greater than 30
[2017-03-11] MEDS: DEXTROSE 5% IN WATER 1,000 ML IV SCH (09:52)
[2017-03-11 10:14] LABS: Glucose,Whole Blood 148 mg/dL (75-99)
[2017-03-11] MEDS ORDERED: POTASSIUM CHLORIDE ORAL LIQUID 40 MEQ/30 ML CUP PO ONE (11:30)
[2017-03-11] MEDS: CYANOCOBALAMIN 500 MCG TAB PO SCH (12:14)
[2017-03-11] MEDS: LISINOPRIL 5 MG TAB PO SCH ×2 (12:14→12:22)
[2017-03-11 12:28] LABS: Glucose,Whole Blood 126 mg/dL (75-99)
[2017-03-11] MEDS: DIGOXIN 250 MCG/ML 2 ML AMP IVP SCH ×2 (13:44→16:41)
[2017-03-11 13:58] LABS: Glucose,Whole Blood 128 mg/dL (75-99)
[2017-03-11 15:14] LABS: Glucose,Whole Blood 111 mg/dL (75-99)
--- NOTE | 2017-03-11 15:36 | P.PN ---
Subjective 76-year-old male patient is postop day #4 following aortic valve replacement. Patient also is known to have previous CVA, bronchial asthma, hyperlipidemia, diabetes and hypertension. Surgery was done for bicuspid aortic valve and the patient is status post aortic valve replacement, bioprosthetic valve. Postop, the patient developed some mediastinal bleeding with hypotension. Based on that the patient was taken back to the operating room to control the bleed and during the process the patient was given a total of 4 units of packed RBC, 2 units of fresh frozen plasma one unit of platelets. The patient was kept intubated on mechanical ventilator. As mentioned today's postop day #4 On today's evaluation, the patient remains on a mechanical ventilator. The patient is an assist-control mode of ventilation with a rate of 24, tidal volume 350, FiO2 of 60% and a PEEP of 10. She is intubated with a #8 ET tube. Chest x-ray from today shows adequate expansion of both lungs. Chest tubes are in place. ET tube is in place. She has some mild cardiomegaly. No sinus complaints or pleural effusions. No pneumothorax seen. The blood gases from this morning showed a pH of 7.38 with a pCO2 of 36 and pO2 of 76. Hemodynamically the patient is stable. The patient is producing adequate amount of urine output. The patient is on no pressors. The patient is on no clevidipine drip. Blood pressure is on under good control. The chest tubes are still in place. The patient has a right pleural and left pleural chest tube and 2 mediastinal chest tubes. All of them are showing minimal amount of drainage and the patient would have the mediastinal and the right sided chest tube pulled today. Platelet count improved and it's up to 148. Hemoglobin stable at 8.1. She is sedated with Diprivan. She is calm and comfortable. On 03/09/2017 the patient is still being seen in follow-up. The patient has been quite stable overnight. The patient is on a mechanical ventilator and based on the most is a vent changes she is on a rate of 24, tidal volume 450, FiO2 has been down to 40% and I cut down the PEEP down to 8 and then down to 5 cm of water. The patient's chest x-ray showing cardiomegaly and there is a component of pulmonary vessel congestion. The patient was given 20 mg of IV Lasix this morning. She is producing adequate amount of urine output. The mediastinal and the right pleural chest tube has been removed. The patient has a left pleural chest tube only. No fever. No chills. Tolerating tube feeds. No other significant events overnight. Blood gases from this morning showed a pH of 7.48 with a pCO2 of 29 and a pO2 of 83. Hemoglobin stable at 8.5. On 03/10/2017 the patient is being seen in follow-up. She was taken off sedation this morning and she was very slow in recovering from sedation. Despite being off the sedation for few hours, the patient is still lethargic. She is arousable and she can follow simple commands. She is not fully alert however. She remains on same vent settings overnight which included an assist- control of 24, tidal volume 450, FiO2 of 40% and a PEEP of 5. Blood gases from this morning showed a component of respiratory alkalosis. Chest x-ray shows cardiomegaly with pulmonary vascular congestion and the patient was given 20 mg of IV Lasix earlier by cardiothoracic surgery. Mediastinal and right pleural chest tube has been removed. The patient has a left-sided chest tube in place. Sternum stable clean and intact. No major edema in lower extremities. After being taken off sedation, check weaning parameters and the patient was becoming quite restless even on assist control mode of ventilation. She was becoming tachypneic and her minute ventilation was high. She was able to generate more than 400 mL of tidal volume and a support of 5 and a PEEP of 5. At that point, I made a decision to extubate this patient to a BiPAP at a pressure of 12/5 cm of water and FiO2 of 60%. One hour following extubation, blood gases was done and showed a pH of 7.42 with a pCO2 of 37 and pO2 of 76. She is still lethargic and somewhat sleepy. She is arousable however. She did have some hypertensive reaction for which she was given 5 g of IV Lopressor. She is a bit anxious and she'll be given 1 mg of Ativan. Additional dose of 40 because of Lasix will be given. I am inclined not to reintubate this patient. I'm trying to stabilize her condition to avoid reintubation. Note that she has a restrictive lung disease pH is obese. Her FVC and FEV1 were in the 55% of age preoperatively. Her lung volumes are small on today's chest x-ray. On 03/11/2017 the patient is being seen in follow-up. After being extubated for few hours the patient had to be intubated. Immediately after the intubation she had frothy rest or secretions with orotracheal tube and she was suspected to be in acute pulmonary edema. Based on that the patient with diuresis with IV Lasix and since then her fluid balance has been negative. She has diuresed another 1 L since yesterday. She is sedated on Diprivan and she is calm and comfortable. She is on a mechanical ventilator on assist control mode at the rate of 2, tidal volume 400, FiO2 of 40% and a PEEP of 7. The vent changes were adjusted this morning after I reviewed the blood gases and a chest x-ray. The chest x-ray shows some cardiomegaly and mild four-vessel congestion and a blood gas showed a pH of 7.42 with a pCO2 of 38 and pO2 136. Earlier this morning the patient was also having A dose of hypotension. His systolic blood pressure was dropping in the mid 80s. She was placed on norepinephrine infusion and was running at around 4-5 mics to maintain a mean artery pressure above 65. Cardiac rhythm is atrial fibrillation. She was having episodes of bradycardia and tachycardia. I noted on several occasions that the patient's backup pacemaker was discharging. At the rate is stage became tachycardic. CT surgery was involved and the patient was given digoxin 0.5 mg. She is currently ventricular paced at the rate of 65. The underlying rhythm was asystole. Note that she had gotten her metoprolol earlier this morning. She is back on her tube feeds and currently she is on vital high protein at the rate of 40 mL an hour. In terms of fluid balance, she is on IV D5 water at the rate of 40. Producing somewhere between 75 mL an hour of urine output. Afebrile. Objective - Vital Signs Vital signs: Vital Signs Temp 98.2 F 03/11/17 12:00 Pulse 52 L 03/11/17 13:00 Resp 24 03/11/17 13:00 BP 122/53 03/07/17 13:00 Pulse Ox 97 03/11/17 13:00 Intake & Output 03/10/17 03/11/17 03/11/17 18:59 06:59 18:59 Intake Total 467.911 3618.362 1103.001 Output Total 1735 1080 1097 Balance -1036.742 -77.638 6.001 Weight 88.8 kg Intake: IV 476 516 366 Dextrose 5% in Water 1, 400 480 360 000 ml @ 40 mls/hr IV . Q24H [facility] Rx#:[id number] Sodium Chloride 0.9% 1, 40 000 ml @ 20 mls/hr IV . Q24H [facility] Rx#:[id number] pressure bag 36 36 6 Intake, IV Titration 142.258 126.362 357.001 Amount Amiodarone 450 mg In 46.662 Dextrose 5% in Water 250 ml @ 1 MG/MIN 33.33 mls/ hr IV .Q7H31M [facility] Rx#: [id number] Clevidipine Butyrate 25 0.067 mg In Empty Bag 1 bag @ 1 MG/HR 2 mls/hr IV .Q24H [facility] Rx#:[id number] Insulin Regular 100 unit 60.667 30.937 45.150 In Sodium Chloride 0.9% 100 ml @ Per Protocol IV .Q0M [facility] Rx#:[id number] Norepinephrin 4 mg-0.9% 14.251 147.407 Ns Pmx 4 mg In 250 ml @ Titrate IV .Q0M [facility] Rx#: [id number] Propofol 1,000 mg In 100 34.862 81.174 164.444 ml @ Titrate IV .Q0M [facility] Rx#:[id number] Tube Feeding 80 360 320 Other 60 Output: Chest Tube Drainage 30 Left Lateral Chest 30 Urine 1557 936 1632 Urine/Stool Mix 175 Other: Voiding Method Indwelling Catheter Indwelling Catheter Indwelling Catheter # Bowel Movements 1 ABP, PAP, CO, CI - Last Documented Arterial Blood Pressure 126/39 Pulmonary Artery Pressure 43/32 Cardiac Output 3.9 Cardiac Index 2.3 - Exam Sedated, comfortable intubated on a mechanical ventilator and orogastric and orotracheal tube are both in place..Head exam was generally normal. There was no scleral icterus or corneal arcus. Mucous membranes were moist. Neck is short and supple and the patient has significant crowding of the posterior oropharynx. 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 Lungs sounds are diminished bilaterally along with some bibasilar crackles.Cardiac exam revealed the PMI to be normally situated and sized. The rhythm was regular and no extrasystoles were noted during several minutes of auscultation. The first and second heart sounds were normal and physiologic splitting of the second heart sound was noted. The rhythm is paced right now at the rate of 65. Underlying rhythm is a systole. There were no murmurs, rubs, clicks, or gallops.Abdominal exam revealed normal bowel sounds. The abdomen was soft, non-tender, and without masses, organomegaly, or appreciable enlargement of the abdominal aorta. Extremities show trace edema and there is no cyanosis or clubbing at this point. - Labs CBC & Chem 7: 03/11/17 05:53 03/11/17 05:53 Labs: Abnormal Lab Results - Last 24 Hours (Table) 03/10/17 03/10/17 03/10/17 Range/Units 15:20 15:27 19:14 WBC (3.8-10.6) k/uL RBC (3.80-5.40) m/uL Hgb (11.4-16.0) gm/dL Hct (34.0-46.0) % MCV (80.0-100.0) fL MCH (25.0-35.0) pg RDW (11.5-15.5) % ABG pO2 180 H (83-108) mmHg ABG Total CO2 (19-24) mmol/L ABG O2 Saturation 100.0 H (94-97) % Sodium (137-145) mmol/L Chloride (98-107) mmol/L BUN (7-17) mg/dL Creatinine (0.52-1.04) mg/dL Glucose (74-99) mg/dL POC Glucose (mg/dL) 113 H 120 H (75-99) mg/dL Calcium (8.4-10.2) mg/dL Phosphorus (2.5-4.5) mg/dL Magnesium (1.6-2.3) mg/dL AST (14-36) U/L ALT (9-52) U/L Alkaline Phosphatase (38-126) U/L Total Protein (6.3-8.2) g/dL Albumin (3.5-5.0) g/dL 03/10/17 03/10/17 03/10/17 Range/Units 19:57 22:06 23:55 WBC (3.8-10.6) k/uL RBC (3.80-5.40) m/uL Hgb (11.4-16.0) gm/dL Hct (34.0-46.0) % MCV (80.0-100.0) fL MCH (25.0-35.0) pg RDW (11.5-15.5) % ABG pO2 (83-108) mmHg ABG Total CO2 (19-24) mmol/L ABG O2 Saturation (94-97) % Sodium (137-145) mmol/L Chloride (98-107) mmol/L BUN (7-17) mg/dL Creatinine (0.52-1.04) mg/dL Glucose (74-99) mg/dL POC Glucose (mg/dL) 126 H 114 H 146 H (75-99) mg/dL Calcium (8.4-10.2) mg/dL Phosphorus (2.5-4.5) mg/dL Magnesium (1.6-2.3) mg/dL AST (14-36) U/L ALT (9-52) U/L Alkaline Phosphatase (38-126) U/L Total Protein (6.3-8.2) g/dL Albumin (3.5-5.0) g/dL 03/10/17 03/11/17 03/11/17 Range/Units 23:57 01:23 02:08 WBC (3.8-10.6) k/uL RBC (3.80-5.40) m/uL Hgb (11.4-16.0) gm/dL Hct (34.0-46.0) % MCV (80.0-100.0) fL MCH (25.0-35.0) pg RDW (11.5-15.5) % ABG pO2 (83-108) mmHg ABG Total CO2 (19-24) mmol/L ABG O2 Saturation (94-97) % Sodium 146 H (137-145) mmol/L Chloride 111 H (98-107) mmol/L BUN 58 H (7-17) mg/dL Creatinine 1.30 H (0.52-1.04) mg/dL Glucose 139 H (74-99) mg/dL POC Glucose (mg/dL) 115 H 102 H (75-99) mg/dL Calcium 7.7 L (8.4-10.2) mg/dL Phosphorus (2.5-4.5) mg/dL Magnesium 2.4 H (1.6-2.3) mg/dL AST (14-36) U/L ALT (9-52) U/L Alkaline Phosphatase (38-126) U/L Total Protein (6.3-8.2) g/dL Albumin (3.5-5.0) g/dL 03/11/17 03/11/17 03/11/17 Range/Units 03:04 04:02 04:17 WBC (3.8-10.6) k/uL RBC (3.80-5.40) m/uL Hgb (11.4-16.0) gm/dL Hct (34.0-46.0) % MCV (80.0-100.0) fL MCH (25.0-35.0) pg RDW (11.5-15.5) % ABG pO2 136 H (83-108) mmHg ABG Total CO2 26 H (19-24) mmol/L ABG O2 Saturation 99.0 H (94-97) % Sodium (137-145) mmol/L Chloride (98-107) mmol/L BUN (7-17) mg/dL Creatinine (0.52-1.04) mg/dL Glucose (74-99) mg/dL POC Glucose (mg/dL) 135 H 121 H (75-99) mg/dL Calcium (8.4-10.2) mg/dL Phosphorus (2.5-4.5) mg/dL Magnesium (1.6-2.3) mg/dL AST (14-36) U/L ALT (9-52) U/L Alkaline Phosphatase (38-126) U/L Total Protein (6.3-8.2) g/dL Albumin (3.5-5.0) g/dL 03/11/17 03/11/17 03/11/17 Range/Units 05:48 05:53 05:53 WBC 13.6 H (3.8-10.6) k/uL RBC 3.12 L (3.80-5.40) m/uL Hgb 7.5 L (11.4-16.0) gm/dL Hct 23.9 L (34.0-46.0) % MCV 76.6 L (80.0-100.0) fL MCH 24.1 L (25.0-35.0) pg RDW 25.3 H (11.5-15.5) % ABG pO2 (83-108) mmHg ABG Total CO2 (19-24) mmol/L ABG O2 Saturation (94-97) % Sodium 148 H (137-145) mmol/L Chloride 114 H (98-107) mmol/L BUN 57 H (7-17) mg/dL Creatinine 1.29 H (0.52-1.04) mg/dL Glucose 108 H (74-99) mg/dL POC Glucose (mg/dL) 113 H (75-99) mg/dL Calcium 7.4 L (8.4-10.2) mg/dL Phosphorus 5.0 H (2.5-4.5) mg/dL Magnesium 2.5 H (1.6-2.3) mg/dL AST 52 H (14-36) U/L ALT 94 H (9-52) U/L Alkaline Phosphatase 180 H (38-126) U/L Total Protein 4.5 L (6.3-8.2) g/dL Albumin 2.3 L (3.5-5.0) g/dL 03/11/17 03/11/17 03/11/17 Range/Units 07:05 07:58 10:12 WBC (3.8-10.6) k/uL RBC (3.80-5.40) m/uL Hgb (11.4-16.0) gm/dL Hct (34.0-46.0) % MCV (80.0-100.0) fL MCH (25.0-35.0) pg RDW (11.5-15.5) % ABG pO2 (83-108) mmHg ABG Total CO2 (19-24) mmol/L ABG O2 Saturation (94-97) % Sodium (137-145) mmol/L Chloride (98-107) mmol/L BUN (7-17) mg/dL Creatinine (0.52-1.04) mg/dL Glucose (74-99) mg/dL POC Glucose (mg/dL) 156 H 142 H 148 H (75-99) mg/dL Calcium (8.4-10.2) mg/dL Phosphorus (2.5-4.5) mg/dL Magnesium (1.6-2.3) mg/dL AST (14-36) U/L ALT (9-52) U/L Alkaline Phosphatase (38-126) U/L Total Protein (6.3-8.2) g/dL Albumin (3.5-5.0) g/dL 03/11/17 03/11/17 03/11/17 Range/Units 12:26 13:55 15:12 WBC (3.8-10.6) k/uL RBC (3.80-5.40) m/uL Hgb (11.4-16.0) gm/dL Hct (34.0-46.0) % MCV (80.0-100.0) fL MCH (25.0-35.0) pg RDW (11.5-15.5) % ABG pO2 (83-108) mmHg ABG Total CO2 (19-24) mmol/L ABG O2 Saturation (94-97) % Sodium (137-145) mmol/L Chloride (98-107) mmol/L BUN (7-17) mg/dL Creatinine (0.52-1.04) mg/dL Glucose (74-99) mg/dL POC Glucose (mg/dL) 126 H 128 H 111 H (75-99) mg/dL Calcium (8.4-10.2) mg/dL Phosphorus (2.5-4.5) mg/dL Magnesium (1.6-2.3) mg/dL AST (14-36) U/L ALT (9-52) U/L Alkaline Phosphatase (38-126) U/L Total Protein (6.3-8.2) g/dL Albumin (3.5-5.0) g/dL Microbiology - Last 24 Hours (Table) 03/09/17 21:12 Gram Stain - Preliminary Drainage Wound Culture - Preliminary 03/09/17 21:12 Gram Stain - Preliminary Drainage Wound Culture - Preliminary Assessment and Plan Plan: Assessment 1 aortic valve replacement for severe bicuspid aortic valve stenosis, patient is postop day #7 2 postoperative mediastinal bleeding, recovered 3 hypotension currently on 45 mics of norepinephrine infusion for blood pressure control. 4 postoperative respiratory failure, expected outcome of surgery. The patient failed extubation yesterday. The patient had to be reintubated. Currently assist-control mode of ventilation. Chest x-ray shows cardiomegaly with some mild four-vessel congestion. Oxidation ventilates improved post intubation. 5 paroxysmal atrial fibrillation. Current rhythm is paced an underlying cardiac rhythm is a systole. The patient is paced at the rate of 65. Note that he was given metoprolol and digoxin earlier this morning. 6 hypertension, history of 7 CVA/TIA, history of 8 bronchial asthma, history of 9 obesity 10 restrictive lung physiology on preop spirometry with an FEV1 of 56% of predicted. 11 thrombocytopenia, improving 12 postoperative anemia, expected, hemoglobin is at 7.5. Plan Keep the patient sedated with Diprivan. May consider ultimately to switch him to Precedex as the patient is having difficulties in arousing during sedation holidays. Continue assist-control mode of ventilation. May drop down the PEEP to 5 at a later stage. He is oxygenating well for now. Hemodynamically, she is requiring pressors. Unfortunately she hasn't gone into a asystolic cardiac rhythm and she is currently being paced rate of 65. Metoprolol and digoxin should be placed on hold. Monitor hemoglobin. Monitor urine output. Keep him ERT a pressure above 65. Continue the tube feeds. No weaning trials for today. We'll continue to follow. Condition is still highly critical. Evaluation was done and 35 minutes. Time with Patient: Greater than 30
[2017-03-11 16:09] LABS: Glucose,Whole Blood 118 mg/dL (75-99)
[2017-03-11 17:01] LABS: Glucose,Whole Blood 166 mg/dL (75-99)
[2017-03-11] MEDS: INSULIN REGULAR 100 UNIT in SODIUM CHLORIDE 0.9% 100 ML IV SCH (17:02)
[2017-03-11 18:28] LABS: Glucose,Whole Blood 151 mg/dL (75-99)
[2017-03-11 19:27] LABS: Glucose,Whole Blood 129 mg/dL (75-99)
[2017-03-11 20:03] LABS: Glucose,Whole Blood 114 mg/dL (75-99)
[2017-03-11] MEDS: SENNOSIDES-DOCUSATE SODIUM 1 EACH TAB PO SCH (20:10)
[2017-03-11 22:12] LABS: Glucose,Whole Blood 160 mg/dL (75-99)
[2017-03-12 00:08] LABS: Glucose,Whole Blood 133 mg/dL (75-99)
[2017-03-12] MEDS: MORPHINE SULFATE 2 MG/ML SYRINGE IVP PRN (00:23)
[2017-03-12] MEDS: prednisoLONE ACETATE 1% OPHTH DROPS 1 ML BTL RIGHT EYE SCH ×4 (00:26→19:04)
[2017-03-12] MEDS: OFLOXACIN 0.3% OPHTH DROPS 5 ML BOTTLE RIGHT EYE SCH ×4 (00:26→19:04)
[2017-03-12] MEDS: SODIUM CHLORIDE 0.9% 1,000 ML IV SCH ×2 (01:24→23:28)
[2017-03-12] MEDS: PROPOFOL 1,000 MG/100 ML VIAL IV SCH ×4 (01:25→22:29)
[2017-03-12 02:04] LABS: Glucose,Whole Blood 95 mg/dL (75-99)
[2017-03-12] MEDS: IPRATROPIUM-ALBUTEROL 3 ML NEB INHALATION SCH ×6 (03:09→23:24)
[2017-03-12 04:07] LABS: Glucose,Whole Blood 172 mg/dL (75-99)
[2017-03-12] MEDS: HEPARIN SODIUM,PORCINE 5,000 UNIT/ML 1 ML VIAL SQ SCH ×3 (04:10→21:41)
[2017-03-12 04:26] LABS: Anisocytosis Marked; CHCM 31.2; HCT 23.6 % (34.0-46.0); HDW 3.56; HGB 7.1 gm/dL (11.4-16.0); Hypochromasia Moderate; MCH 23.3 pg (25.0-35.0); MCHC 30.1 g/dL (31.0-37.0); MCV 77.4 fL (80.0-100.0); Mean Platelet Volume 8.8; Microcytosis Marked; Poikilocytosis Slight; RBC 3.05 m/uL (3.80-5.40); WBC 12.5 k/uL (3.8-10.6)
[2017-03-12 04:29] LABS: ABG Base Excess -0.8 mmol/L; ABG HCO3 23 mmol/L (21-25); ABG PCO2 34 mmHg (35-45); ABG PH 7.44 (7.35-7.45); ABG PO2 74 mmHg (83-108); ABG TCO2 24 mmol/L (19-24)
[2017-03-12 04:30] LABS: RDW 25.4 % (11.5-15.5)
[2017-03-12 04:44] LABS: Ionized Calcium 4.6 mg/dL (4.5-5.3)
[2017-03-12 04:58] LABS: Calcium 7.7 mg/dL (8.4-10.2); Magnesium 2.5 mg/dL (1.6-2.3); Phosphorous 5.2 mg/dL (2.5-4.5); Potassium 4.6 mmol/L (3.5-5.1); Total Bilirubin 0.9 mg/dL (0.2-1.3); Total Protein 4.7 g/dL (6.3-8.2)
[2017-03-12] MEDS: NOREPINEPHRIN 4 MG-0.9% NS PMX 4 MG/250 ML ML IV SCH (05:03)
[2017-03-12 06:29] LABS: Glucose,Whole Blood 127 mg/dL (75-99)
--- NOTE | 2017-03-12 07:12 | XR ---
EXAMINATION TYPE: XR chest 1V portable DATE OF EXAM: 03/12/2017 CLINICAL HISTORY: Difficulty breathing progress study. Post open cardiac surgery. TECHNIQUE: Single AP portable upright view of the chest is obtained. COMPARISON: Chest x-ray from one day earlier FINDINGS: An endotracheal tube, orogastric tube, and left-sided PICC line are stable in appearance. There is redemonstration of sternal wires as well as metallic aortic valve and cardiac closure device . There is cardiomegaly and chronic parenchymal change without suspicious new focal airspace opacity, p leural effusion, or pneumothorax seen bilaterally. Residual patchy left basilar atelectasis and/or in filtrate is redemonstrated. Osseous structures are demineralized. IMPRESSION: Overall stable findings, chronic parenchymal change and cardiomegaly with patchy left b asilar atelectasis and/or infiltrate, no new infiltrate is seen.
[2017-03-12] MEDS: CHLORHEXIDINE GLUCONATE 15 ML CUP MUCOUS MEM SCH ×2 (08:20→21:41)
[2017-03-12] MEDS: DEXTROSE 5% IN WATER 1,000 ML IV SCH (08:20)
[2017-03-12] MEDS: ASPIRIN 325 MG TAB PO SCH (08:20)
[2017-03-12] MEDS: CALCIUM CARB-VIT D 500MG-200UN 1 EACH TAB PO SCH (08:21)
[2017-03-12] MEDS: CLOPIDOGREL 75 MG TAB PO SCH (08:21)
[2017-03-12] MEDS: PANTOPRAZOLE 40 MG/10 ML VIAL IVP SCH (08:22)
[2017-03-12] MEDS: METOPROLOL TARTRATE 25 MG TAB PO SCH ×2 (08:22→21:41)
[2017-03-12 08:29] LABS: Glucose,Whole Blood 131 mg/dL (75-99)
[2017-03-12] MEDS ORDERED: ceFAZolin 1 GM in SODIUM CHLORIDE 0.9% 100 ML IVPB ONE (08:51)
[2017-03-12] MEDS ORDERED: FUROSEMIDE 10 MG/ML 4 ML VIAL IV STA (09:00)
[2017-03-12] MEDS ORDERED: ceFAZolin 1,000 MG in DEXTROSE/WATER 1 50ML.BAG IVPB ONE (09:00)
[2017-03-12] MEDS ORDERED: DIGOXIN 250 MCG/ML 2 ML AMP IVP SCH (09:00)
--- NOTE | 2017-03-12 09:02 | P.PN ---
Subjective Principal diagnosis: Status post aVR This is a pleasant 76-year-old female patient who sees Dr. STELLA Lazaro as an outpatient who was diagnosed recently with symptomatic severe aortic stenosis secondary to bicuspid aortic valve. The patient underwent aVR using a bioprosthetic aortic valve. The patient was extubated yesterday but she was reintubated again. Hemodynamically she continues to require small dose of Levophed. The patient again has no underlying rhythm and she is going to have a permanent pacemaker implantation later on today. Objective - Vital Signs Vital signs: Vital Signs Temp 99.2 F 03/12/17 08:15 Pulse 71 03/12/17 08:15 Resp 29 H 03/12/17 08:15 BP 101/41 03/12/17 08:15 Pulse Ox 94 L 03/12/17 08:15 Intake & Output 03/11/17 03/12/17 03/12/17 18:59 06:59 18:59 Intake Total 9540.857 7934.687 43 Output Total 1547 969 40 Balance -192.835 174.687 3 Weight 88.8 kg 88.5 kg Intake: IV 486 513 43 Dextrose 5% in Water 1, 480 480 40 000 ml @ 40 mls/hr IV . Q24H [facility] Rx#:[id number] pressure bag 6 33 3 Intake, IV Titration 378.165 310.687 Amount Insulin Regular 100 unit 45.283 76.674 In Sodium Chloride 0.9% 100 ml @ Per Protocol IV .Q0M [facility] Rx#:[id number] Norepinephrin 4 mg-0.9% 168.438 67.311 Ns Pmx 4 mg In 250 ml @ Titrate IV .Q0M [facility] Rx#: [id number] Propofol 1,000 mg In 100 164.444 166.702 ml @ Titrate IV .Q0M [facility] Rx#:[id number] Tube Feeding 400 320 Blood Product 0 Rc Pheresis 2 As3 Unit 0 [id number] Other 90 Output: Urine 1547 969 40 Other: Voiding Method Indwelling Catheter Indwelling Catheter ABP, PAP, CO, CI - Last Documented Arterial Blood Pressure 115/44 Pulmonary Artery Pressure 43/32 Cardiac Output 3.9 Cardiac Index 2.3 - Constitutional General appearance: Present: no acute distress - Respiratory Respiratory: bilateral: diminished - Cardiovascular Rhythm: regular Heart sounds: normal: S1, S2 - Labs CBC & Chem 7: 03/12/17 04:10 03/12/17 04:10 Labs: Abnormal Lab Results - Last 24 Hours (Table) 03/11/17 03/11/17 03/11/17 Range/Units 10:12 12:26 13:55 WBC (3.8-10.6) k/uL RBC (3.80-5.40) m/uL Hgb (11.4-16.0) gm/dL Hct (34.0-46.0) % MCV (80.0-100.0) fL MCH (25.0-35.0) pg MCHC (31.0-37.0) g/dL RDW (11.5-15.5) % ABG pCO2 (35-45) mmHg ABG pO2 (83-108) mmHg Chloride (98-107) mmol/L BUN (7-17) mg/dL Creatinine (0.52-1.04) mg/dL Glucose (74-99) mg/dL POC Glucose (mg/dL) 148 H 126 H 128 H (75-99) mg/dL Calcium (8.4-10.2) mg/dL Phosphorus (2.5-4.5) mg/dL Magnesium (1.6-2.3) mg/dL AST (14-36) U/L ALT (9-52) U/L Alkaline Phosphatase (38-126) U/L Total Protein (6.3-8.2) g/dL Albumin (3.5-5.0) g/dL Crossmatch 03/11/17 03/11/17 03/11/17 Range/Units 15:12 16:05 16:58 WBC (3.8-10.6) k/uL RBC (3.80-5.40) m/uL Hgb (11.4-16.0) gm/dL Hct (34.0-46.0) % MCV (80.0-100.0) fL MCH (25.0-35.0) pg MCHC (31.0-37.0) g/dL RDW (11.5-15.5) % ABG pCO2 (35-45) mmHg ABG pO2 (83-108) mmHg Chloride (98-107) mmol/L BUN (7-17) mg/dL Creatinine (0.52-1.04) mg/dL Glucose (74-99) mg/dL POC Glucose (mg/dL) 111 H 118 H 166 H (75-99) mg/dL Calcium (8.4-10.2) mg/dL Phosphorus (2.5-4.5) mg/dL Magnesium (1.6-2.3) mg/dL AST (14-36) U/L ALT (9-52) U/L Alkaline Phosphatase (38-126) U/L Total Protein (6.3-8.2) g/dL Albumin (3.5-5.0) g/dL Crossmatch 03/11/17 03/11/17 03/11/17 Range/Units 18:16 19:09 20:01 WBC (3.8-10.6) k/uL RBC (3.80-5.40) m/uL Hgb (11.4-16.0) gm/dL Hct (34.0-46.0) % MCV (80.0-100.0) fL MCH (25.0-35.0) pg MCHC (31.0-37.0) g/dL RDW (11.5-15.5) % ABG pCO2 (35-45) mmHg ABG pO2 (83-108) mmHg Chloride (98-107) mmol/L BUN (7-17) mg/dL Creatinine (0.52-1.04) mg/dL Glucose (74-99) mg/dL POC Glucose (mg/dL) 151 H 129 H 114 H (75-99) mg/dL Calcium (8.4-10.2) mg/dL Phosphorus (2.5-4.5) mg/dL Magnesium (1.6-2.3) mg/dL AST (14-36) U/L ALT (9-52) U/L Alkaline Phosphatase (38-126) U/L Total Protein (6.3-8.2) g/dL Albumin (3.5-5.0) g/dL Crossmatch 03/11/17 03/12/17 03/12/17 Range/Units 22:10 00:05 03:59 WBC (3.8-10.6) k/uL RBC (3.80-5.40) m/uL Hgb (11.4-16.0) gm/dL Hct (34.0-46.0) % MCV (80.0-100.0) fL MCH (25.0-35.0) pg MCHC (31.0-37.0) g/dL RDW (11.5-15.5) % ABG pCO2 34 L (35-45) mmHg ABG pO2 74 L (83-108) mmHg Chloride (98-107) mmol/L BUN (7-17) mg/dL Creatinine (0.52-1.04) mg/dL Glucose (74-99) mg/dL POC Glucose (mg/dL) 160 H 133 H (75-99) mg/dL Calcium (8.4-10.2) mg/dL Phosphorus (2.5-4.5) mg/dL Magnesium (1.6-2.3) mg/dL AST (14-36) U/L ALT (9-52) U/L Alkaline Phosphatase (38-126) U/L Total Protein (6.3-8.2) g/dL Albumin (3.5-5.0) g/dL Crossmatch 03/12/17 03/12/17 03/12/17 Range/Units 04:04 04:10 04:10 WBC 12.5 H (3.8-10.6) k/uL RBC 3.05 L (3.80-5.40) m/uL Hgb 7.1 L (11.4-16.0) gm/dL Hct 23.6 L (34.0-46.0) % MCV 77.4 L (80.0-100.0) fL MCH 23.3 L (25.0-35.0) pg MCHC 30.1 L (31.0-37.0) g/dL RDW 25.4 H (11.5-15.5) % ABG pCO2 (35-45) mmHg ABG pO2 (83-108) mmHg Chloride 111 H (98-107) mmol/L BUN 63 H (7-17) mg/dL Creatinine 1.20 H (0.52-1.04) mg/dL Glucose 170 H (74-99) mg/dL POC Glucose (mg/dL) 172 H (75-99) mg/dL Calcium 7.7 L (8.4-10.2) mg/dL Phosphorus 5.2 H (2.5-4.5) mg/dL Magnesium 2.5 H (1.6-2.3) mg/dL AST 49 H (14-36) U/L ALT 80 H (9-52) U/L Alkaline Phosphatase 215 H (38-126) U/L Total Protein 4.7 L (6.3-8.2) g/dL Albumin 2.4 L (3.5-5.0) g/dL Crossmatch 03/12/17 03/12/17 03/12/17 Range/Units 06:25 06:27 08:15 WBC (3.8-10.6) k/uL RBC (3.80-5.40) m/uL Hgb (11.4-16.0) gm/dL Hct (34.0-46.0) % MCV (80.0-100.0) fL MCH (25.0-35.0) pg MCHC (31.0-37.0) g/dL RDW (11.5-15.5) % ABG pCO2 (35-45) mmHg ABG pO2 (83-108) mmHg Chloride (98-107) mmol/L BUN (7-17) mg/dL Creatinine (0.52-1.04) mg/dL Glucose (74-99) mg/dL POC Glucose (mg/dL) 127 H 131 H (75-99) mg/dL Calcium (8.4-10.2) mg/dL Phosphorus (2.5-4.5) mg/dL Magnesium (1.6-2.3) mg/dL AST (14-36) U/L ALT (9-52) U/L Alkaline Phosphatase (38-126) U/L Total Protein (6.3-8.2) g/dL Albumin (3.5-5.0) g/dL Crossmatch See Detail Microbiology - Last 24 Hours (Table) 03/11/17 17:53 Gram Stain - Preliminary Sputum 03/09/17 21:12 Gram Stain - Final Drainage Wound Culture - Final 03/09/17 21:12 Gram Stain - Final Drainage Wound Culture - Final Assessment and Plan Plan: The patient blood pressure dropped again and she is currently on Levophed. She has no underlying rhythm and she is going to have permanent pacemaker implantation. She is currently on propofol drip as well.
[2017-03-12 10:18] LABS: Glucose,Whole Blood 89 mg/dL (75-99)
[2017-03-12 11:11] LABS: Glucose,Whole Blood 109 mg/dL (75-99)
--- NOTE | 2017-03-12 11:24 | P.PN ---
Subjective Principal diagnosis: Bicuspid aortic valve with critical aortic stenosis, aortic insufficiency. CAD. Diabetes mellitus. Hypertension. History of TIAs, neuropathy, pericarditis, scoliosis, brain concussion. History of paroxysmal atrial fibrillation POD #8 elective aortic valve replacement with #25 mm magna ease bioprosthetic aortic valve, a clip ligation into left atrial appendage with a #35 mm AtriClip and intraoperative transesophageal echocardiogram. Postoperative acute blood loss anemia, a potential expected outcome of surgery. POD #8 reexploration of the chest, evacuation of clot, control of bleed. Postoperative hypoxic respiratory failure requiring prolonged mechanical ventilation, a potential expected outcome of surgery. POD #6 placement of right pleural chest tube for pleural effusion Postoperative hypovolemic shock, inherent to the surgery Postoperative paroxysmal atrial fibrillation, and expected outcome of surgery Currently sedated on mechanical ventilation. Treated with digoxin yesterday for tachycardia, subsequently became very bradycardic and pacemaker dependent. Her underlying rhythm currently when the pacemaker is paused is asystole, plan for permanent pacemaker today. Blood pressure very labile still. Objective - Vital Signs Vital signs: Vital Signs Temp 99.0 F 03/12/17 08:45 Pulse 69 03/12/17 10:00 Resp 26 H 03/12/17 10:00 BP 104/43 03/12/17 08:45 Pulse Ox 95 03/12/17 10:00 Intake & Output 03/11/17 03/12/17 03/12/17 18:59 06:59 18:59 Intake Total 6662.306 9244.687 869 Output Total 1547 969 655 Balance -192.835 174.687 214 Weight 88.8 kg 88.5 kg Intake: IV 486 513 209 Dextrose 5% in Water 1, 480 480 200 000 ml @ 40 mls/hr IV . Q24H [facility] Rx#:[id number] pressure bag 6 33 9 Intake, IV Titration 378.165 310.687 Amount Insulin Regular 100 unit 45.283 76.674 In Sodium Chloride 0.9% 100 ml @ Per Protocol IV .Q0M [facility] Rx#:[id number] Norepinephrin 4 mg-0.9% 168.438 67.311 Ns Pmx 4 mg In 250 ml @ Titrate IV .Q0M [facility] Rx#: [id number] Propofol 1,000 mg In 100 164.444 166.702 ml @ Titrate IV .Q0M [facility] Rx#:[id number] Tube Feeding 400 320 40 Blood Product 620 Rc Pheresis 2 As3 Unit 310 [id number] Other 90 Output: Urine 1547 969 655 Other: Voiding Method Indwelling Catheter Indwelling Catheter Indwelling Catheter ABP, PAP, CO, CI - Last Documented Arterial Blood Pressure 108/44 Pulmonary Artery Pressure 43/32 Cardiac Output 3.9 Cardiac Index 2.3 - Constitutional General appearance: Present: no acute distress - Respiratory Details: Lungs sounds diminished, coarse breath sounds at the bases. Respirations even, nonlabored on mechanical ventilation. Current settings assist control mode, FiO2 40%, tidal volume 400, respiratory rate 16, PEEP 7. - Cardiovascular Details: Currently pacemaker dependent. Sternum stable. Brachial PICC line present. Generalized edema present. Heart hugger, SCDs, teds present. - Gastrointestinal Gastrointestinal Comment(s): Abdomen soft, nontender, nondistended. Active bowel sounds 4 quadrants. Currently nothing by mouth for surgery, previously tube fed and was tolerating well. Positive bowel movements. - Genitourinary Genitourinary Comment(s): Cuellar present draining clear, yellow urine. Output was approximated 100 mL per hour, now currently down to approximately 35 mL/h. - Integumentary Integumentary Comment(s): Anterior chest incision well approximated and covered with dry intact dressing. - Musculoskeletal Musculoskeletal: Present: generalized weakness - Psychiatric Psychiatric Comment(s): Sedated on mechanical ventilation. - Allied health notes Allied health notes reviewed: nursing - Labs CBC & Chem 7: 03/12/17 04:10 03/12/17 04:10 Labs: Abnormal Lab Results - Last 24 Hours (Table) 03/11/17 03/11/17 03/11/17 Range/Units 12:26 13:55 15:12 WBC (3.8-10.6) k/uL RBC (3.80-5.40) m/uL Hgb (11.4-16.0) gm/dL Hct (34.0-46.0) % MCV (80.0-100.0) fL MCH (25.0-35.0) pg MCHC (31.0-37.0) g/dL RDW (11.5-15.5) % ABG pCO2 (35-45) mmHg ABG pO2 (83-108) mmHg Chloride (98-107) mmol/L BUN (7-17) mg/dL Creatinine (0.52-1.04) mg/dL Glucose (74-99) mg/dL POC Glucose (mg/dL) 126 H 128 H 111 H (75-99) mg/dL Calcium (8.4-10.2) mg/dL Phosphorus (2.5-4.5) mg/dL Magnesium (1.6-2.3) mg/dL AST (14-36) U/L ALT (9-52) U/L Alkaline Phosphatase (38-126) U/L Total Protein (6.3-8.2) g/dL Albumin (3.5-5.0) g/dL Crossmatch 03/11/17 03/11/17 03/11/17 Range/Units 16:05 16:58 18:16 WBC (3.8-10.6) k/uL RBC (3.80-5.40) m/uL Hgb (11.4-16.0) gm/dL Hct (34.0-46.0) % MCV (80.0-100.0) fL MCH (25.0-35.0) pg MCHC (31.0-37.0) g/dL RDW (11.5-15.5) % ABG pCO2 (35-45) mmHg ABG pO2 (83-108) mmHg Chloride (98-107) mmol/L BUN (7-17) mg/dL Creatinine (0.52-1.04) mg/dL Glucose (74-99) mg/dL POC Glucose (mg/dL) 118 H 166 H 151 H (75-99) mg/dL Calcium (8.4-10.2) mg/dL Phosphorus (2.5-4.5) mg/dL Magnesium (1.6-2.3) mg/dL AST (14-36) U/L ALT (9-52) U/L Alkaline Phosphatase (38-126) U/L Total Protein (6.3-8.2) g/dL Albumin (3.5-5.0) g/dL Crossmatch 03/11/17 03/11/17 03/11/17 Range/Units 19:09 20:01 22:10 WBC (3.8-10.6) k/uL RBC (3.80-5.40) m/uL Hgb (11.4-16.0) gm/dL Hct (34.0-46.0) % MCV (80.0-100.0) fL MCH (25.0-35.0) pg MCHC (31.0-37.0) g/dL RDW (11.5-15.5) % ABG pCO2 (35-45) mmHg ABG pO2 (83-108) mmHg Chloride (98-107) mmol/L BUN (7-17) mg/dL Creatinine (0.52-1.04) mg/dL Glucose (74-99) mg/dL POC Glucose (mg/dL) 129 H 114 H 160 H (75-99) mg/dL Calcium (8.4-10.2) mg/dL Phosphorus (2.5-4.5) mg/dL Magnesium (1.6-2.3) mg/dL AST (14-36) U/L ALT (9-52) U/L Alkaline Phosphatase (38-126) U/L Total Protein (6.3-8.2) g/dL Albumin (3.5-5.0) g/dL Crossmatch 03/12/17 03/12/17 03/12/17 Range/Units 00:05 03:59 04:04 WBC (3.8-10.6) k/uL RBC (3.80-5.40) m/uL Hgb (11.4-16.0) gm/dL Hct (34.0-46.0) % MCV (80.0-100.0) fL MCH (25.0-35.0) pg MCHC (31.0-37.0) g/dL RDW (11.5-15.5) % ABG pCO2 34 L (35-45) mmHg ABG pO2 74 L (83-108) mmHg Chloride (98-107) mmol/L BUN (7-17) mg/dL Creatinine (0.52-1.04) mg/dL Glucose (74-99) mg/dL POC Glucose (mg/dL) 133 H 172 H (75-99) mg/dL Calcium (8.4-10.2) mg/dL Phosphorus (2.5-4.5) mg/dL Magnesium (1.6-2.3) mg/dL AST (14-36) U/L ALT (9-52) U/L Alkaline Phosphatase (38-126) U/L Total Protein (6.3-8.2) g/dL Albumin (3.5-5.0) g/dL Crossmatch 03/12/17 03/12/17 03/12/17 Range/Units 04:10 04:10 06:25 WBC 12.5 H (3.8-10.6) k/uL RBC 3.05 L (3.80-5.40) m/uL Hgb 7.1 L (11.4-16.0) gm/dL Hct 23.6 L (34.0-46.0) % MCV 77.4 L (80.0-100.0) fL MCH 23.3 L (25.0-35.0) pg MCHC 30.1 L (31.0-37.0) g/dL RDW 25.4 H (11.5-15.5) % ABG pCO2 (35-45) mmHg ABG pO2 (83-108) mmHg Chloride 111 H (98-107) mmol/L BUN 63 H (7-17) mg/dL Creatinine 1.20 H (0.52-1.04) mg/dL Glucose 170 H (74-99) mg/dL POC Glucose (mg/dL) (75-99) mg/dL Calcium 7.7 L (8.4-10.2) mg/dL Phosphorus 5.2 H (2.5-4.5) mg/dL Magnesium 2.5 H (1.6-2.3) mg/dL AST 49 H (14-36) U/L ALT 80 H (9-52) U/L Alkaline Phosphatase 215 H (38-126) U/L Total Protein 4.7 L (6.3-8.2) g/dL Albumin 2.4 L (3.5-5.0) g/dL Crossmatch See Detail 03/12/17 03/12/17 03/12/17 Range/Units 06:27 08:15 11:07 WBC (3.8-10.6) k/uL RBC (3.80-5.40) m/uL Hgb (11.4-16.0) gm/dL Hct (34.0-46.0) % MCV (80.0-100.0) fL MCH (25.0-35.0) pg MCHC (31.0-37.0) g/dL RDW (11.5-15.5) % ABG pCO2 (35-45) mmHg ABG pO2 (83-108) mmHg Chloride (98-107) mmol/L BUN (7-17) mg/dL Creatinine (0.52-1.04) mg/dL Glucose (74-99) mg/dL POC Glucose (mg/dL) 127 H 131 H 109 H (75-99) mg/dL Calcium (8.4-10.2) mg/dL Phosphorus (2.5-4.5) mg/dL Magnesium (1.6-2.3) mg/dL AST (14-36) U/L ALT (9-52) U/L Alkaline Phosphatase (38-126) U/L Total Protein (6.3-8.2) g/dL Albumin (3.5-5.0) g/dL Crossmatch Microbiology - Last 24 Hours (Table) 03/11/17 17:53 Gram Stain - Preliminary Sputum 03/09/17 21:12 Gram Stain - Final Drainage Wound Culture - Final 03/09/17 21:12 Gram Stain - Final Drainage Wound Culture - Final - Imaging and Cardiology Chest x-ray: report reviewed, image reviewed Assessment and Plan (1) History of TIA (transient ischemic attack) Status: Acute (2) Hyperlipidemia Status: Acute (3) Osteoarthritis Status: Acute (4) Acute blood loss as cause of postoperative anemia Status: Acute (5) Paroxysmal atrial fibrillation Status: Acute (6) Status post aortic valve replacement Status: Acute (7) Bicuspid aortic valve Status: Acute (8) Diabetes mellitus, insulin dependent (IDDM), controlled Status: Acute (9) Hypertension Status: Acute (10) Severe aortic stenosis Status: Acute Plan: 1. Continue aspirin, Plavix, beta daysi, JENNIFER inhibitor. Statin on hold secondary to elevated liver enzymes, will restart when able. Will maximize beta daysi therapy as able. 2. Patient to get permanent pacemaker today. 1 unit of packed red blood cells followed by 40 mg IV push Lasix to be given today. 3. Wean O2 as tolerated. Ventilatory support per pulmonary services. 4. 1 unit of packed red blood cells followed by 40 mg IV push Lasix to be given today. 5. Check residual from OG tube every 4 hours. 6. Continue Cuellar for strict accurate intake and output. 7. Monitor daily labs, chest x-rays. 8. GI/DVT prophylaxis. 9. Insulin management per primary service. 10. More recommendations as patient progresses. Time with Patient: Greater than 30
[2017-03-12] MEDS: CYANOCOBALAMIN 500 MCG TAB PO SCH (12:07)
[2017-03-12] MEDS: LISINOPRIL 5 MG TAB PO SCH (12:07)
[2017-03-12 12:09] LABS: Glucose,Whole Blood 132 mg/dL (75-99)
[2017-03-12 13:32] LABS: Glucose,Whole Blood 106 mg/dL (75-99)
[2017-03-12 14:14] LABS: Glucose,Whole Blood 114 mg/dL (75-99)
[2017-03-12] MEDS: INSULIN REGULAR 100 UNIT in SODIUM CHLORIDE 0.9% 100 ML IV SCH (15:09)
[2017-03-12 15:11] LABS: Glucose,Whole Blood 135 mg/dL (75-99)
[2017-03-12] MEDS ORDERED: MIDAZOLAM 2 MG/2 ML VIAL ONE (15:32)
[2017-03-12] MEDS ORDERED: VECURONIUM 10 MG VIAL IV ONE (15:32)
[2017-03-12] MEDS ORDERED: PROPOFOL 10 MG/ML 20 ML VIAL IV ONE (15:32)
[2017-03-12] MEDS ORDERED: SODIUM CHLORIDE 0.9% 500 ML with HEPARIN SODIUM,PORCINE 5,000 UNIT IV ONE ×2 (15:50)
--- NOTE | 2017-03-12 17:31 | P.PN ---
Subjective 76-year-old male patient is postop day #4 following aortic valve replacement. Patient also is known to have previous CVA, bronchial asthma, hyperlipidemia, diabetes and hypertension. Surgery was done for bicuspid aortic valve and the patient is status post aortic valve replacement, bioprosthetic valve. Postop, the patient developed some mediastinal bleeding with hypotension. Based on that the patient was taken back to the operating room to control the bleed and during the process the patient was given a total of 4 units of packed RBC, 2 units of fresh frozen plasma one unit of platelets. The patient was kept intubated on mechanical ventilator. As mentioned today's postop day #4 On today's evaluation, the patient remains on a mechanical ventilator. The patient is an assist-control mode of ventilation with a rate of 24, tidal volume 350, FiO2 of 60% and a PEEP of 10. She is intubated with a #8 ET tube. Chest x-ray from today shows adequate expansion of both lungs. Chest tubes are in place. ET tube is in place. She has some mild cardiomegaly. No sinus complaints or pleural effusions. No pneumothorax seen. The blood gases from this morning showed a pH of 7.38 with a pCO2 of 36 and pO2 of 76. Hemodynamically the patient is stable. The patient is producing adequate amount of urine output. The patient is on no pressors. The patient is on no clevidipine drip. Blood pressure is on under good control. The chest tubes are still in place. The patient has a right pleural and left pleural chest tube and 2 mediastinal chest tubes. All of them are showing minimal amount of drainage and the patient would have the mediastinal and the right sided chest tube pulled today. Platelet count improved and it's up to 148. Hemoglobin stable at 8.1. She is sedated with Diprivan. She is calm and comfortable. On 03/09/2017 the patient is still being seen in follow-up. The patient has been quite stable overnight. The patient is on a mechanical ventilator and based on the most is a vent changes she is on a rate of 24, tidal volume 450, FiO2 has been down to 40% and I cut down the PEEP down to 8 and then down to 5 cm of water. The patient's chest x-ray showing cardiomegaly and there is a component of pulmonary vessel congestion. The patient was given 20 mg of IV Lasix this morning. She is producing adequate amount of urine output. The mediastinal and the right pleural chest tube has been removed. The patient has a left pleural chest tube only. No fever. No chills. Tolerating tube feeds. No other significant events overnight. Blood gases from this morning showed a pH of 7.48 with a pCO2 of 29 and a pO2 of 83. Hemoglobin stable at 8.5. On 03/10/2017 the patient is being seen in follow-up. She was taken off sedation this morning and she was very slow in recovering from sedation. Despite being off the sedation for few hours, the patient is still lethargic. She is arousable and she can follow simple commands. She is not fully alert however. She remains on same vent settings overnight which included an assist- control of 24, tidal volume 450, FiO2 of 40% and a PEEP of 5. Blood gases from this morning showed a component of respiratory alkalosis. Chest x-ray shows cardiomegaly with pulmonary vascular congestion and the patient was given 20 mg of IV Lasix earlier by cardiothoracic surgery. Mediastinal and right pleural chest tube has been removed. The patient has a left-sided chest tube in place. Sternum stable clean and intact. No major edema in lower extremities. After being taken off sedation, check weaning parameters and the patient was becoming quite restless even on assist control mode of ventilation. She was becoming tachypneic and her minute ventilation was high. She was able to generate more than 400 mL of tidal volume and a support of 5 and a PEEP of 5. At that point, I made a decision to extubate this patient to a BiPAP at a pressure of 12/5 cm of water and FiO2 of 60%. One hour following extubation, blood gases was done and showed a pH of 7.42 with a pCO2 of 37 and pO2 of 76. She is still lethargic and somewhat sleepy. She is arousable however. She did have some hypertensive reaction for which she was given 5 g of IV Lopressor. She is a bit anxious and she'll be given 1 mg of Ativan. Additional dose of 40 because of Lasix will be given. I am inclined not to reintubate this patient. I'm trying to stabilize her condition to avoid reintubation. Note that she has a restrictive lung disease pH is obese. Her FVC and FEV1 were in the 55% of age preoperatively. Her lung volumes are small on today's chest x-ray. On 03/11/2017 the patient is being seen in follow-up. After being extubated for few hours the patient had to be intubated. Immediately after the intubation she had frothy rest or secretions with orotracheal tube and she was suspected to be in acute pulmonary edema. Based on that the patient with diuresis with IV Lasix and since then her fluid balance has been negative. She has diuresed another 1 L since yesterday. She is sedated on Diprivan and she is calm and comfortable. She is on a mechanical ventilator on assist control mode at the rate of 2, tidal volume 400, FiO2 of 40% and a PEEP of 7. The vent changes were adjusted this morning after I reviewed the blood gases and a chest x-ray. The chest x-ray shows some cardiomegaly and mild four-vessel congestion and a blood gas showed a pH of 7.42 with a pCO2 of 38 and pO2 136. Earlier this morning the patient was also having A dose of hypotension. His systolic blood pressure was dropping in the mid 80s. She was placed on norepinephrine infusion and was running at around 4-5 mics to maintain a mean artery pressure above 65. Cardiac rhythm is atrial fibrillation. She was having episodes of bradycardia and tachycardia. I noted on several occasions that the patient's backup pacemaker was discharging. At the rate is stage became tachycardic. CT surgery was involved and the patient was given digoxin 0.5 mg. She is currently ventricular paced at the rate of 65. The underlying rhythm was asystole. Note that she had gotten her metoprolol earlier this morning. She is back on her tube feeds and currently she is on vital high protein at the rate of 40 mL an hour. In terms of fluid balance, she is on IV D5 water at the rate of 40. Producing somewhere between 75 mL an hour of urine output. Afebrile. The patient is seen again today 03/12/2017 in follow-up in the intensive care unit. She remains intubated and on the mechanical ventilator. Currently in an assist-control mode with a rate of 12, tidal volume 400, FiO2 40 and a PEEP of 5. Morning blood gases reveal a P O2 of 74, pCO2 of 34 and a pH of 7.44. Today 's chest x-ray revealed overall stable findings, there is chronic parenchymal changes and cardiomegaly with patchy left basilar atelectasis. No new infiltrates are seen. She remains on norepinephrine at 3 mcg/m to maintain mean arterial pressure of 65 and greater. She is sedated on propofol at 35 mcg/ kg/m. She is on insulin drip at 5.5 units per hour. Her Vital high-protein tube feeds are currently on hold as the patient has been noticed to be pacemaker dependent and the plan is for insertion of a permanent pacemaker today. Objective - Vital Signs Vital signs: Vital Signs Temp 99.2 F 03/12/17 12:00 Pulse 68 03/12/17 15:00 Resp 25 H 03/12/17 15:00 BP 119/47 03/12/17 08:51 Pulse Ox 97 03/12/17 15:00 Intake & Output 03/11/17 03/12/17 03/12/17 18:59 06:59 18:59 Intake Total 9856.446 8106.687 1384.638 Output Total 9337 443 2320 Balance -192.835 174.687 78.638 Weight 88.8 kg 88.5 kg Intake: IV 486 513 422 Dextrose 5% in Water 1, 480 480 360 000 ml @ 40 mls/hr IV . Q24H [facility] Rx#:[id number] pressure bag 6 33 12 Intake, IV Titration 378.165 310.687 302.638 Amount Insulin Regular 100 unit 45.283 76.674 24.326 In Sodium Chloride 0.9% 100 ml @ Per Protocol IV .Q0M [facility] Rx#:[id number] Norepinephrin 4 mg-0.9% 168.438 67.311 178.312 Ns Pmx 4 mg In 250 ml @ Titrate IV .Q0M [facility] Rx#: [id number] Propofol 1,000 mg In 100 164.444 166.702 100.00 ml @ Titrate IV .Q0M [facility] Rx#:[id number] Tube Feeding 400 320 40 Blood Product 620 Rc Pheresis 2 As3 Unit 310 [id number] Other 90 Output: Urine 6905 638 6495 Estimated Blood Loss 1 Other: Voiding Method Indwelling Catheter Indwelling Catheter Indwelling Catheter ABP, PAP, CO, CI - Last Documented Arterial Blood Pressure 124/49 Pulmonary Artery Pressure 43/32 Cardiac Output 3.9 Cardiac Index 2.3 - Exam Sedated, comfortable intubated on a mechanical ventilator and orogastric and orotracheal tube are both in place..Head exam was generally normal. There was no scleral icterus or corneal arcus. Mucous membranes were moist. Neck is short and supple and the patient has significant crowding of the posterior oropharynx. 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 Lungs sounds are diminished bilaterally along with some bibasilar crackles.Cardiac exam revealed the PMI to be normally situated and sized. The rhythm was regular and no extrasystoles were noted during several minutes of auscultation. The first and second heart sounds were normal and physiologic splitting of the second heart sound was noted. The rhythm is paced right now at the rate of 65. Underlying rhythm is a systole. There were no murmurs, rubs, clicks, or gallops.Abdominal exam revealed normal bowel sounds. The abdomen was soft, non-tender, and without masses, organomegaly, or appreciable enlargement of the abdominal aorta. Extremities show trace edema and there is no cyanosis or clubbing at this point. - Labs CBC & Chem 7: 03/12/17 04:10 03/12/17 04:10 Labs: Abnormal Lab Results - Last 24 Hours (Table) 03/11/17 03/11/17 03/11/17 Range/Units 18:16 19:09 20:01 WBC (3.8-10.6) k/uL RBC (3.80-5.40) m/uL Hgb (11.4-16.0) gm/dL Hct (34.0-46.0) % MCV (80.0-100.0) fL MCH (25.0-35.0) pg MCHC (31.0-37.0) g/dL RDW (11.5-15.5) % ABG pCO2 (35-45) mmHg ABG pO2 (83-108) mmHg Chloride (98-107) mmol/L BUN (7-17) mg/dL Creatinine (0.52-1.04) mg/dL Glucose (74-99) mg/dL POC Glucose (mg/dL) 151 H 129 H 114 H (75-99) mg/dL Calcium (8.4-10.2) mg/dL Phosphorus (2.5-4.5) mg/dL Magnesium (1.6-2.3) mg/dL AST (14-36) U/L ALT (9-52) U/L Alkaline Phosphatase (38-126) U/L Total Protein (6.3-8.2) g/dL Albumin (3.5-5.0) g/dL Crossmatch 03/11/17 03/12/17 03/12/17 Range/Units 22:10 00:05 03:59 WBC (3.8-10.6) k/uL RBC (3.80-5.40) m/uL Hgb (11.4-16.0) gm/dL Hct (34.0-46.0) % MCV (80.0-100.0) fL MCH (25.0-35.0) pg MCHC (31.0-37.0) g/dL RDW (11.5-15.5) % ABG pCO2 34 L (35-45) mmHg ABG pO2 74 L (83-108) mmHg Chloride (98-107) mmol/L BUN (7-17) mg/dL Creatinine (0.52-1.04) mg/dL Glucose (74-99) mg/dL POC Glucose (mg/dL) 160 H 133 H (75-99) mg/dL Calcium (8.4-10.2) mg/dL Phosphorus (2.5-4.5) mg/dL Magnesium (1.6-2.3) mg/dL AST (14-36) U/L ALT (9-52) U/L Alkaline Phosphatase (38-126) U/L Total Protein (6.3-8.2) g/dL Albumin (3.5-5.0) g/dL Crossmatch 03/12/17 03/12/17 03/12/17 Range/Units 04:04 04:10 04:10 WBC 12.5 H (3.8-10.6) k/uL RBC 3.05 L (3.80-5.40) m/uL Hgb 7.1 L (11.4-16.0) gm/dL Hct 23.6 L (34.0-46.0) % MCV 77.4 L (80.0-100.0) fL MCH 23.3 L (25.0-35.0) pg MCHC 30.1 L (31.0-37.0) g/dL RDW 25.4 H (11.5-15.5) % ABG pCO2 (35-45) mmHg ABG pO2 (83-108) mmHg Chloride 111 H (98-107) mmol/L BUN 63 H (7-17) mg/dL Creatinine 1.20 H (0.52-1.04) mg/dL Glucose 170 H (74-99) mg/dL POC Glucose (mg/dL) 172 H (75-99) mg/dL Calcium 7.7 L (8.4-10.2) mg/dL Phosphorus 5.2 H (2.5-4.5) mg/dL Magnesium 2.5 H (1.6-2.3) mg/dL AST 49 H (14-36) U/L ALT 80 H (9-52) U/L Alkaline Phosphatase 215 H (38-126) U/L Total Protein 4.7 L (6.3-8.2) g/dL Albumin 2.4 L (3.5-5.0) g/dL Crossmatch 03/12/17 03/12/17 03/12/17 Range/Units 06:25 06:27 08:15 WBC (3.8-10.6) k/uL RBC (3.80-5.40) m/uL Hgb (11.4-16.0) gm/dL Hct (34.0-46.0) % MCV (80.0-100.0) fL MCH (25.0-35.0) pg MCHC (31.0-37.0) g/dL RDW (11.5-15.5) % ABG pCO2 (35-45) mmHg ABG pO2 (83-108) mmHg Chloride (98-107) mmol/L BUN (7-17) mg/dL Creatinine (0.52-1.04) mg/dL Glucose (74-99) mg/dL POC Glucose (mg/dL) 127 H 131 H (75-99) mg/dL Calcium (8.4-10.2) mg/dL Phosphorus (2.5-4.5) mg/dL Magnesium (1.6-2.3) mg/dL AST (14-36) U/L ALT (9-52) U/L Alkaline Phosphatase (38-126) U/L Total Protein (6.3-8.2) g/dL Albumin (3.5-5.0) g/dL Crossmatch See Detail 03/12/17 03/12/17 03/12/17 Range/Units 11:07 12:01 13:26 WBC (3.8-10.6) k/uL RBC (3.80-5.40) m/uL Hgb (11.4-16.0) gm/dL Hct (34.0-46.0) % MCV (80.0-100.0) fL MCH (25.0-35.0) pg MCHC (31.0-37.0) g/dL RDW (11.5-15.5) % ABG pCO2 (35-45) mmHg ABG pO2 (83-108) mmHg Chloride (98-107) mmol/L BUN (7-17) mg/dL Creatinine (0.52-1.04) mg/dL Glucose (74-99) mg/dL POC Glucose (mg/dL) 109 H 132 H 106 H (75-99) mg/dL Calcium (8.4-10.2) mg/dL Phosphorus (2.5-4.5) mg/dL Magnesium (1.6-2.3) mg/dL AST (14-36) U/L ALT (9-52) U/L Alkaline Phosphatase (38-126) U/L Total Protein (6.3-8.2) g/dL Albumin (3.5-5.0) g/dL Crossmatch 03/12/17 03/12/17 Range/Units 14:09 15:07 WBC (3.8-10.6) k/uL RBC (3.80-5.40) m/uL Hgb (11.4-16.0) gm/dL Hct (34.0-46.0) % MCV (80.0-100.0) fL MCH (25.0-35.0) pg MCHC (31.0-37.0) g/dL RDW (11.5-15.5) % ABG pCO2 (35-45) mmHg ABG pO2 (83-108) mmHg Chloride (98-107) mmol/L BUN (7-17) mg/dL Creatinine (0.52-1.04) mg/dL Glucose (74-99) mg/dL POC Glucose (mg/dL) 114 H 135 H (75-99) mg/dL Calcium (8.4-10.2) mg/dL Phosphorus (2.5-4.5) mg/dL Magnesium (1.6-2.3) mg/dL AST (14-36) U/L ALT (9-52) U/L Alkaline Phosphatase (38-126) U/L Total Protein (6.3-8.2) g/dL Albumin (3.5-5.0) g/dL Crossmatch Microbiology - Last 24 Hours (Table) 03/11/17 17:53 Gram Stain - Preliminary Sputum 03/09/17 21:12 Gram Stain - Final Drainage Wound Culture - Final 03/09/17 21:12 Gram Stain - Final Drainage Wound Culture - Final Assessment and Plan Plan: Assessment 1 aortic valve replacement for severe bicuspid aortic valve stenosis, patient is postop day #8 2 postoperative mediastinal bleeding, recovered 3 hypotension currently on his last heart mics of norepinephrine infusion for blood pressure control. 4 postoperative respiratory failure, expected outcome of surgery. The patient failed extubation earlier this week. The patient had to be reintubated. Currently assist-control mode of ventilation. Chest x-ray shows cardiomegaly with some mild four-vessel congestion. Oxidation ventilates improved post intubation. 5 paroxysmal atrial fibrillation. Current rhythm is paced an underlying cardiac rhythm is a systole. The patient is paced at the rate of 65. Note that he was given metoprolol and digoxin earlier this morning. 6 hypertension, history of 7 CVA/TIA, history of 8 bronchial asthma, history of 9 obesity 10 restrictive lung physiology on preop spirometry with an FEV1 of 56% of predicted. 11 thrombocytopenia, improving 12 postoperative anemia, expected, hemoglobin is at 7.1. Plan: The patient was seen and evaluated by Dr. Soler. Her chest x-ray, ABGs and labs were all reviewed. We'll keep the patient sedated and on the mechanical ventilator as she is going for a permanent pacemaker implantation later this afternoon. We'll continue with her current medications. We'll continue to titrate the norepinephrine to keep mean arterial pressure of 65 and higher. May consider Precedex as this patient has ongoing issues with awakening on sedation holidays from the propofol. We'll resume her tube feedings postprocedure. We'll continue to follow and make further recommendations based on her clinical status. Her overall prognosis remains quite guarded. Critical care time 38 minutes. Time with Patient: Greater than 30
--- NOTE | 2017-03-12 17:43 | XR ---
EXAMINATION TYPE: XR chest 1V portable DATE OF EXAM: 03/12/2017 COMPARISON: 03/12/2017 HISTORY: Pacemaker implantation TECHNIQUE: Single frontal view of the chest is obtained. FINDINGS: Heart is enlarged. There is a left axillary pacemaker with the lead tips in the right vent ricle. Endotracheal tube appears in good position. There is a nasogastric tube in good position. Ther e is a left pneumothorax that is approximately 50%. There is left central venous catheter with the ti p in the superior vena cava. IMPRESSION: There is a new left axillary pacemaker compared to last exam. There is a new left pneum othorax. This exam was discussed with the ICU nurse at 5:40 PM.
[2017-03-12 17:45] LABS: Glucose,Whole Blood 161 mg/dL (75-99)
--- NOTE | 2017-03-12 18:26 | XR ---
EXAMINATION TYPE: XR chest 1V DATE OF EXAM: 03/12/2017 COMPARISON: Today HISTORY: Chest tube insertion TECHNIQUE: Single frontal view of the chest is obtained. FINDINGS: Endotracheal tube is in good position. There is a left axillary pacemaker with the lead ti ps in the right ventricle. There is left side central venous catheter with the tip in the superior ve na cava. There is an approximate 30% left pneumothorax appears smaller than the exam one hour ago. Th ere are sternal wires. There is a nasogastric tube. I do not see a definite left-sided chest tube. IMPRESSION: A left chest tube is not identified. The left-sided pneumothorax appears slightly smalle r than the exam at 5:30 PM.
[2017-03-12] MEDS: CLEVIDIPINE BUTYRATE 25 MG in EMPTY BAG 1 BAG IV SCH (19:05)
[2017-03-12 19:12] LABS: Glucose,Whole Blood 112 mg/dL (75-99)
[2017-03-12] MEDS ORDERED: DIGOXIN 250 MCG/ML 2 ML AMP IVP ONE (20:00)
[2017-03-12 20:10] LABS: Glucose,Whole Blood 113 mg/dL (75-99)
[2017-03-12 20:30] LABS: ABG HCO3 23 mmol/L (21-25); ABG PCO2 31 mmHg (35-45); ABG PH 7.48 (7.35-7.45); ABG PO2 68 mmHg (83-108); ABG TCO2 24 mmol/L (19-24)
[2017-03-12 20:31] LABS: ABG Base Excess -0.4 mmol/L
[2017-03-12 21:23] LABS: Glucose,Whole Blood 139 mg/dL (75-99)
[2017-03-12 21:31] LABS: Anisocytosis Marked; CH 24.8; CHCM 31.7; HDW 3.95; HGB 8.3 gm/dL (11.4-16.0); Hypochromasia Moderate; MCH 24.1 pg (25.0-35.0); MCHC 30.6 g/dL (31.0-37.0); MCV 78.7 fL (80.0-100.0); Microcytosis Marked; Poikilocytosis Slight; RBC 3.42 m/uL (3.80-5.40); RDW 24.6 % (11.5-15.5)
[2017-03-12] MEDS: SENNOSIDES-DOCUSATE SODIUM 1 EACH TAB PO SCH (21:43)
[2017-03-12 22:13] LABS: Glucose,Whole Blood 146 mg/dL (75-99)
[2017-03-12 23:26] LABS: Glucose,Whole Blood 181 mg/dL (75-99)
[2017-03-13 00:02] LABS: Glucose,Whole Blood 178 mg/dL (75-99)
[2017-03-13] MEDS: OFLOXACIN 0.3% OPHTH DROPS 5 ML BOTTLE RIGHT EYE SCH ×5 (00:09→23:34)
[2017-03-13] MEDS: prednisoLONE ACETATE 1% OPHTH DROPS 1 ML BTL RIGHT EYE SCH ×5 (00:09→23:34)
[2017-03-13 01:11] LABS: Glucose,Whole Blood 173 mg/dL (75-99)
[2017-03-13 01:55] LABS: Glucose,Whole Blood 169 mg/dL (75-99)
[2017-03-13] MEDS: PROPOFOL 1,000 MG/100 ML VIAL IV SCH ×3 (02:20→21:52)
[2017-03-13 02:58] LABS: Glucose,Whole Blood 172 mg/dL (75-99)
[2017-03-13] MEDS: IPRATROPIUM-ALBUTEROL 3 ML NEB INHALATION SCH ×6 (03:07→23:32)
[2017-03-13 04:12] LABS: Glucose,Whole Blood 181 mg/dL (75-99)
[2017-03-13 04:35] LABS: Anisocytosis Marked; CH 24.1; CHCM 31.5; HCT 23.1 % (34.0-46.0); HDW 3.88; HGB 7.3 gm/dL (11.4-16.0); Hypochromasia Moderate; MCH 24.4 pg (25.0-35.0); MCHC 31.7 g/dL (31.0-37.0); Mean Platelet Volume 7.5; Microcytosis Marked; Poikilocytosis Slight; RBC 3.01 m/uL (3.80-5.40); RDW 24.1 % (11.5-15.5); WBC 10.3 k/uL (3.8-10.6)
[2017-03-13 04:47] LABS: Calcium 7.2 mg/dL (8.4-10.2); Magnesium 2.5 mg/dL (1.6-2.3); Potassium 4.2 mmol/L (3.5-5.1); Total Bilirubin 0.8 mg/dL (0.2-1.3); Total Protein 4.5 g/dL (6.3-8.2)
[2017-03-13 05:08] LABS: Digoxin 1.1 ng/mL
[2017-03-13] MEDS: HEPARIN SODIUM,PORCINE 5,000 UNIT/ML 1 ML VIAL SQ SCH ×3 (05:09→20:33)
[2017-03-13 05:35] LABS: ABG Base Excess 0.7 mmol/L; ABG HCO3 24 mmol/L (21-25); ABG PCO2 31 mmHg (35-45); ABG PO2 60 mmHg (83-108); ABG TCO2 25 mmol/L (19-24)
[2017-03-13] MEDS: DEXTROSE 5% IN WATER 1,000 ML IV SCH (05:44)
[2017-03-13] MEDS ORDERED: FUROSEMIDE 10 MG/ML 2 ML VIAL IV ONE (06:00)
[2017-03-13 06:05] LABS: Glucose,Whole Blood 184 mg/dL (75-99)
[2017-03-13] MEDS: NOREPINEPHRIN 4 MG-0.9% NS PMX 4 MG/250 ML ML IV SCH (06:06)
[2017-03-13 07:00] LABS: Glucose,Whole Blood 202 mg/dL (75-99)
--- NOTE | 2017-03-13 07:53 | XR ---
EXAMINATION TYPE: XR chest 1V portable DATE OF EXAM: 03/13/2017 Comparison: 03/12/2017 Clinical History: 76-year-old female post op cardiac surgery Findings: ET and NG tubes are present. Median sternotomy wires with prosthetic aortic valve. Left anterior ches t wall pacemaker generator with right atrial and right ventricular leads. Left-sided basilar chest tu be is present. The previous small to moderate-sized pneumothorax is no longer identified. A left PICC line is present. The tip is likely located in the lower SVC/cavoatrial junction region. Heart is mildly enlarged. Diffuse interstitial and vascular prominence. Patchy retrocardiac opacity. Impression: 1. Correlate for continued mild pulmonary vascular congestion. Patchy retrocardiac atelectasis. 2. Left-sided basilar chest tube. Previous left pneumothorax appears to have resolved.
[2017-03-13 08:02] LABS: Glucose,Whole Blood 207 mg/dL (75-99)
[2017-03-13] MEDS: CLEVIDIPINE BUTYRATE 25 MG in EMPTY BAG 1 BAG IV SCH (08:06)
[2017-03-13] MEDS: CLOPIDOGREL 75 MG TAB PO SCH (08:08)
[2017-03-13] MEDS: CHLORHEXIDINE GLUCONATE 15 ML CUP MUCOUS MEM SCH ×2 (08:08→20:33)
[2017-03-13] MEDS: METOPROLOL TARTRATE 25 MG TAB PO SCH ×2 (08:09→20:33)
[2017-03-13] MEDS: CALCIUM CARB-VIT D 500MG-200UN 1 EACH TAB PO SCH (08:09)
[2017-03-13] MEDS: PANTOPRAZOLE 40 MG/10 ML VIAL IVP SCH (08:09)
[2017-03-13] MEDS: ASPIRIN 325 MG TAB PO SCH (08:09)
--- NOTE | 2017-03-13 08:11 | FL ---
EXAMINATION TYPE: FL guidance operating room DATE OF EXAM: 03/12/2017 FLUOROSCOPY Fluoroscopy time of 1 minute 14 seconds was used during pacemaker insertion. 1 image/s document/s th e procedure.
[2017-03-13] MEDS ORDERED: DIGOXIN 250 MCG/ML 2 ML AMP IVP SCH (09:00)
[2017-03-13 09:16] LABS: Glucose,Whole Blood 173 mg/dL (75-99)
[2017-03-13] MEDS ORDERED: FUROSEMIDE 10 MG/ML 4 ML VIAL IV STA (10:08)
[2017-03-13 10:18] LABS: Glucose,Whole Blood 155 mg/dL (75-99)
[2017-03-13 10:59] LABS: Glucose,Whole Blood 128 mg/dL (75-99)
--- NOTE | 2017-03-13 11:30 | PN ---
I am covering for Dr. Tabor. This 76-year-old woman who was admitted after aortic surgery also had possible mediastinal bleeding. Patient had hypotension. The patient underwent permanent pacemaker implantation for an underlying rhythm at this time. PHYSICAL EXAMINATION: Pulse is 69, blood pressure 120/42, respirations 20, temperature is normal, pulse ox 97% on room air. HEENT: Conjunctivae normal. NECK: No jugular venous distention. CARDIOVASCULAR: S1, S2 muffled. RESPIRATORY: Breath sounds diminished at the bases. A few scattered rhonchi and crackles. ABDOMEN: Soft, nontender. LEGS: No edema, no swelling. NERVOUS SYSTEM: No focal deficits. LABS: WBC 12, hemoglobin 7.1, LFTs are noted. ASSESSMENT: 1. Aortic stenosis status post aortic valve replacement. 2. Underlying cardiac status post pacemaker placement. 3. History of paroxysmal atrial fibrillation. 4. Hypertension. 5. Cerebrovascular accident, transient ischemic attack. 6. Bronchial asthma. 7. Diabetes mellitus type 2. 8. History of bicuspid aortic valve. RECOMMENDATIONS AND DISCUSSION: I recommend to continue the current medications, continue monitoring, continue symptomatic treatment. Monitor blood sugars closely. Otherwise closely follow with Cardiology and Cardiothoracic surgery. Further recommendations to follow. MTDD
[2017-03-13] MEDS: INSULIN REGULAR 100 UNIT in SODIUM CHLORIDE 0.9% 100 ML IV SCH (12:03)
[2017-03-13 12:10] LABS: Glucose,Whole Blood 111 mg/dL (75-99)
[2017-03-13] MEDS: LISINOPRIL 5 MG TAB PO SCH (12:14)
[2017-03-13] MEDS: CYANOCOBALAMIN 500 MCG TAB PO SCH (12:14)
[2017-03-13 13:10] LABS: Glucose,Whole Blood 131 mg/dL (75-99)
[2017-03-13] MEDS: SODIUM CHLORIDE 0.9% 1,000 ML IV SCH (13:15)
[2017-03-13 14:04] LABS: Glucose,Whole Blood 129 mg/dL (75-99)
--- NOTE | 2017-03-13 14:04 | P.PN ---
Subjective 76-year-old male patient is postop day #4 following aortic valve replacement. Patient also is known to have previous CVA, bronchial asthma, hyperlipidemia, diabetes and hypertension. Surgery was done for bicuspid aortic valve and the patient is status post aortic valve replacement, bioprosthetic valve. Postop, the patient developed some mediastinal bleeding with hypotension. Based on that the patient was taken back to the operating room to control the bleed and during the process the patient was given a total of 4 units of packed RBC, 2 units of fresh frozen plasma one unit of platelets. The patient was kept intubated on mechanical ventilator. As mentioned today's postop day #4 On today's evaluation, the patient remains on a mechanical ventilator. The patient is an assist-control mode of ventilation with a rate of 24, tidal volume 350, FiO2 of 60% and a PEEP of 10. She is intubated with a #8 ET tube. Chest x-ray from today shows adequate expansion of both lungs. Chest tubes are in place. ET tube is in place. She has some mild cardiomegaly. No sinus complaints or pleural effusions. No pneumothorax seen. The blood gases from this morning showed a pH of 7.38 with a pCO2 of 36 and pO2 of 76. Hemodynamically the patient is stable. The patient is producing adequate amount of urine output. The patient is on no pressors. The patient is on no clevidipine drip. Blood pressure is on under good control. The chest tubes are still in place. The patient has a right pleural and left pleural chest tube and 2 mediastinal chest tubes. All of them are showing minimal amount of drainage and the patient would have the mediastinal and the right sided chest tube pulled today. Platelet count improved and it's up to 148. Hemoglobin stable at 8.1. She is sedated with Diprivan. She is calm and comfortable. On 03/09/2017 the patient is still being seen in follow-up. The patient has been quite stable overnight. The patient is on a mechanical ventilator and based on the most is a vent changes she is on a rate of 24, tidal volume 450, FiO2 has been down to 40% and I cut down the PEEP down to 8 and then down to 5 cm of water. The patient's chest x-ray showing cardiomegaly and there is a component of pulmonary vessel congestion. The patient was given 20 mg of IV Lasix this morning. She is producing adequate amount of urine output. The mediastinal and the right pleural chest tube has been removed. The patient has a left pleural chest tube only. No fever. No chills. Tolerating tube feeds. No other significant events overnight. Blood gases from this morning showed a pH of 7.48 with a pCO2 of 29 and a pO2 of 83. Hemoglobin stable at 8.5. On 03/10/2017 the patient is being seen in follow-up. She was taken off sedation this morning and she was very slow in recovering from sedation. Despite being off the sedation for few hours, the patient is still lethargic. She is arousable and she can follow simple commands. She is not fully alert however. She remains on same vent settings overnight which included an assist- control of 24, tidal volume 450, FiO2 of 40% and a PEEP of 5. Blood gases from this morning showed a component of respiratory alkalosis. Chest x-ray shows cardiomegaly with pulmonary vascular congestion and the patient was given 20 mg of IV Lasix earlier by cardiothoracic surgery. Mediastinal and right pleural chest tube has been removed. The patient has a left-sided chest tube in place. Sternum stable clean and intact. No major edema in lower extremities. After being taken off sedation, check weaning parameters and the patient was becoming quite restless even on assist control mode of ventilation. She was becoming tachypneic and her minute ventilation was high. She was able to generate more than 400 mL of tidal volume and a support of 5 and a PEEP of 5. At that point, I made a decision to extubate this patient to a BiPAP at a pressure of 12/5 cm of water and FiO2 of 60%. One hour following extubation, blood gases was done and showed a pH of 7.42 with a pCO2 of 37 and pO2 of 76. She is still lethargic and somewhat sleepy. She is arousable however. She did have some hypertensive reaction for which she was given 5 g of IV Lopressor. She is a bit anxious and she'll be given 1 mg of Ativan. Additional dose of 40 because of Lasix will be given. I am inclined not to reintubate this patient. I'm trying to stabilize her condition to avoid reintubation. Note that she has a restrictive lung disease pH is obese. Her FVC and FEV1 were in the 55% of age preoperatively. Her lung volumes are small on today's chest x-ray. On 03/11/2017 the patient is being seen in follow-up. After being extubated for few hours the patient had to be intubated. Immediately after the intubation she had frothy rest or secretions with orotracheal tube and she was suspected to be in acute pulmonary edema. Based on that the patient with diuresis with IV Lasix and since then her fluid balance has been negative. She has diuresed another 1 L since yesterday. She is sedated on Diprivan and she is calm and comfortable. She is on a mechanical ventilator on assist control mode at the rate of 2, tidal volume 400, FiO2 of 40% and a PEEP of 7. The vent changes were adjusted this morning after I reviewed the blood gases and a chest x-ray. The chest x-ray shows some cardiomegaly and mild four-vessel congestion and a blood gas showed a pH of 7.42 with a pCO2 of 38 and pO2 136. Earlier this morning the patient was also having A dose of hypotension. His systolic blood pressure was dropping in the mid 80s. She was placed on norepinephrine infusion and was running at around 4-5 mics to maintain a mean artery pressure above 65. Cardiac rhythm is atrial fibrillation. She was having episodes of bradycardia and tachycardia. I noted on several occasions that the patient's backup pacemaker was discharging. At the rate is stage became tachycardic. CT surgery was involved and the patient was given digoxin 0.5 mg. She is currently ventricular paced at the rate of 65. The underlying rhythm was asystole. Note that she had gotten her metoprolol earlier this morning. She is back on her tube feeds and currently she is on vital high protein at the rate of 40 mL an hour. In terms of fluid balance, she is on IV D5 water at the rate of 40. Producing somewhere between 75 mL an hour of urine output. Afebrile. The patient is seen again today 03/12/2017 in follow-up in the intensive care unit. She remains intubated and on the mechanical ventilator. Currently in an assist-control mode with a rate of 12, tidal volume 400, FiO2 40 and a PEEP of 5. Morning blood gases reveal a P O2 of 74, pCO2 of 34 and a pH of 7.44. Today 's chest x-ray revealed overall stable findings, there is chronic parenchymal changes and cardiomegaly with patchy left basilar atelectasis. No new infiltrates are seen. She remains on norepinephrine at 3 mcg/m to maintain mean arterial pressure of 65 and greater. She is sedated on propofol at 35 mcg/ kg/m. She is on insulin drip at 5.5 units per hour. Her Vital high-protein tube feeds are currently on hold as the patient has been noticed to be pacemaker dependent and the plan is for insertion of a permanent pacemaker today. On 03/13/2017 the patient is being seen in follow-up in the intensive care unit. She is was sedated and she is calm and comfortable. Noted the patient underwent a pacemaker insertion yesterday for postoperative asystole. The patient postop developed a 50% pneumothorax on the left. A chest tube was inserted in the intensive care unit without any complication today's chest x- ray shows full expansion of the left lung without evidence of any pneumothorax or air leak. Meanwhile, the patient is still on a mechanical ventilator assist control mode with tidal volume 400, FiO2 of 50% and a PEEP of 5. The blood gases showed a pH of 7.5 with a pCO2 of 31 and pO2 of 60. Chest x-ray is showing thyromegaly and pulmonary vessel congestion. Sodium level is at 142. Hemoglobin is at 7.3 which is a gram lower compared to yesterday. A sedation holiday will be done and we'll check again the weaning parameters., Judgment the patient is not ready to wean yet. Oxidation is still borderline and there is not a whole lot of room for potential extubation on today's evaluation. She is tolerating her tube feeds. She is on 50 mics of the prevent. No fever. No chills. Sternum stable clean and intact. Objective - Vital Signs Vital signs: Vital Signs Temp 98.1 F 03/13/17 12:00 Pulse 79 03/13/17 13:00 Resp 28 H 03/13/17 13:00 BP 112/40 03/13/17 11:00 Pulse Ox 93 L 03/13/17 13:00 Intake & Output 03/12/17 03/13/17 03/13/17 18:59 06:59 18:59 Intake Total 5270.228 2771.318 631.852 Output Total 1482 885 655 Balance 236.606 546.318 -23.148 Weight 88.6 kg Intake: IV 542 513 189 Dextrose 5% in Water 1, 480 480 160 000 ml @ 40 mls/hr IV . Q24H [facility] Rx#:[id number] Sodium Chloride 0.9% 1, 20 000 ml @ 20 mls/hr IV . Q24H [facility] Rx#:[id number] pressure bag 12 33 9 Intake, IV Titration 516.606 268.318 112.852 Amount Insulin Regular 100 unit 38.294 22.434 48.454 In Sodium Chloride 0.9% 100 ml @ Per Protocol IV .Q0M [facility] Rx#:[id number] Norepinephrin 4 mg-0.9% 178.312 71.688 14.25 Ns Pmx 4 mg In 250 ml @ Titrate IV .Q0M [facility] Rx#: [id number] Propofol 1,000 mg In 100 200.00 174.196 50.148 ml @ Titrate IV .Q0M [facility] Rx#:[id number] ceFAZolin 1,000 mg In 100 Dextrose/Water 1 50ml.bag @ 100 mls/hr IVPB ONCE ONE Rx#:[id number] Tube Feeding 40 560 240 Blood Product 620 Rc Pheresis 2 As3 Unit 310 [id number] Other 90 90 Output: Chest Tube Drainage 56 60 Chest Tube Left Lateral 56 60 Chest Drainage 5 Left Chest 5 Urine 1425 885 590 Estimated Blood Loss 1 Other: Voiding Method Indwelling Catheter Indwelling Catheter Indwelling Catheter ABP, PAP, CO, CI - Last Documented Arterial Blood Pressure 139/42 Pulmonary Artery Pressure 43/32 Cardiac Output 3.9 Cardiac Index 2.3 - Exam Sedated, comfortable intubated on a mechanical ventilator and orogastric and orotracheal tube are both in place..Head exam was generally normal. There was no scleral icterus or corneal arcus. Mucous membranes were moist. Neck is short and supple and the patient has significant crowding of the posterior oropharynx. 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 Lungs sounds are diminished bilaterally along with some bibasilar crackles.the patient has a left -sided chest tube without evidence of any air leak. There is also a pacemaker pocket over the left anterior chest area. Cardiac exam revealed the PMI to be normally situated and sized. The rhythm was regular and no extrasystoles were noted during several minutes of auscultation. The first and second heart sounds were normal and physiologic splitting of the second heart sound was noted. The rhythm is paced . . There were no murmurs, rubs, clicks, or gallops.Abdominal exam revealed normal bowel sounds. The abdomen was soft, non-tender, and without masses, organomegaly, or appreciable enlargement of the abdominal aorta. Extremities show trace edema and there is no cyanosis or clubbing at this point. Neurologically the patient is sedated. She has however arousable and she would withdraw no for extremities without any major difficulties. - Labs CBC & Chem 7: 03/13/17 04:22 03/13/17 04:22 Labs: Abnormal Lab Results - Last 24 Hours (Table) 03/12/17 03/12/17 03/12/17 Range/Units 14:09 15:07 17:38 WBC (3.8-10.6) k/uL RBC (3.80-5.40) m/uL Hgb (11.4-16.0) gm/dL Hct (34.0-46.0) % MCV (80.0-100.0) fL MCH (25.0-35.0) pg MCHC (31.0-37.0) g/dL RDW (11.5-15.5) % ABG pH (7.35-7.45) ABG pCO2 (35-45) mmHg ABG pO2 (83-108) mmHg ABG Total CO2 (19-24) mmol/L ABG O2 Saturation (94-97) % Chloride (98-107) mmol/L BUN (7-17) mg/dL Creatinine (0.52-1.04) mg/dL Glucose (74-99) mg/dL POC Glucose (mg/dL) 114 H 135 H 161 H (75-99) mg/dL Calcium (8.4-10.2) mg/dL Phosphorus (2.5-4.5) mg/dL Magnesium (1.6-2.3) mg/dL AST (14-36) U/L ALT (9-52) U/L Alkaline Phosphatase (38-126) U/L Total Protein (6.3-8.2) g/dL Albumin (3.5-5.0) g/dL 03/12/17 03/12/1717 Range/Units 19:09 20:09 20:15 WBC (3.8-10.6) k/uL RBC (3.80-5.40) m/uL Hgb (11.4-16.0) gm/dL Hct (34.0-46.0) % MCV (80.0-100.0) fL MCH (25.0-35.0) pg MCHC (31.0-37.0) g/dL RDW (11.5-15.5) % ABG pH 7.48 H (7.35-7.45) ABG pCO2 31 L (35-45) mmHg ABG pO2 68 L (83-108) mmHg ABG Total CO2 (19-24) mmol/L ABG O2 Saturation (94-97) % Chloride (98-107) mmol/L BUN (7-17) mg/dL Creatinine (0.52-1.04) mg/dL Glucose (74-99) mg/dL POC Glucose (mg/dL) 112 H 113 H (75-99) mg/dL Calcium (8.4-10.2) mg/dL Phosphorus (2.5-4.5) mg/dL Magnesium (1.6-2.3) mg/dL AST (14-36) U/L ALT (9-52) U/L Alkaline Phosphatase (38-126) U/L Total Protein (6.3-8.2) g/dL Albumin (3.5-5.0) g/dL 03/12/17 03/12/17 03/12/17 Range/Units 21:20 21:22 22:11 WBC 13.0 H (3.8-10.6) k/uL RBC 3.42 L (3.80-5.40) m/uL Hgb 8.3 L (11.4-16.0) gm/dL Hct 27.0 L (34.0-46.0) % MCV 78.7 L (80.0-100.0) fL MCH 24.1 L (25.0-35.0) pg MCHC 30.6 L (31.0-37.0) g/dL RDW 24.6 H (11.5-15.5) % ABG pH (7.35-7.45) ABG pCO2 (35-45) mmHg ABG pO2 (83-108) mmHg ABG Total CO2 (19-24) mmol/L ABG O2 Saturation (94-97) % Chloride (98-107) mmol/L BUN (7-17) mg/dL Creatinine (0.52-1.04) mg/dL Glucose (74-99) mg/dL POC Glucose (mg/dL) 139 H 146 H (75-99) mg/dL Calcium (8.4-10.2) mg/dL Phosphorus (2.5-4.5) mg/dL Magnesium (1.6-2.3) mg/dL AST (14-36) U/L ALT (9-52) U/L Alkaline Phosphatase (38-126) U/L Total Protein (6.3-8.2) g/dL Albumin (3.5-5.0) g/dL 03/12/17 03/13/17 03/13/17 Range/Units 23:25 00:01 01:09 WBC (3.8-10.6) k/uL RBC (3.80-5.40) m/uL Hgb (11.4-16.0) gm/dL Hct (34.0-46.0) % MCV (80.0-100.0) fL MCH (25.0-35.0) pg MCHC (31.0-37.0) g/dL RDW (11.5-15.5) % ABG pH (7.35-7.45) ABG pCO2 (35-45) mmHg ABG pO2 (83-108) mmHg ABG Total CO2 (19-24) mmol/L ABG O2 Saturation (94-97) % Chloride (98-107) mmol/L BUN (7-17) mg/dL Creatinine (0.52-1.04) mg/dL Glucose (74-99) mg/dL POC Glucose (mg/dL) 181 H 178 H 173 H (75-99) mg/dL Calcium (8.4-10.2) mg/dL Phosphorus (2.5-4.5) mg/dL Magnesium (1.6-2.3) mg/dL AST (14-36) U/L ALT (9-52) U/L Alkaline Phosphatase (38-126) U/L Total Protein (6.3-8.2) g/dL Albumin (3.5-5.0) g/dL 03/13/17 03/13/17 03/13/17 Range/Units 01:53 02:56 04:10 WBC (3.8-10.6) k/uL RBC (3.80-5.40) m/uL Hgb (11.4-16.0) gm/dL Hct (34.0-46.0) % MCV (80.0-100.0) fL MCH (25.0-35.0) pg MCHC (31.0-37.0) g/dL RDW (11.5-15.5) % ABG pH (7.35-7.45) ABG pCO2 (35-45) mmHg ABG pO2 (83-108) mmHg ABG Total CO2 (19-24) mmol/L ABG O2 Saturation (94-97) % Chloride (98-107) mmol/L BUN (7-17) mg/dL Creatinine (0.52-1.04) mg/dL Glucose (74-99) mg/dL POC Glucose (mg/dL) 169 H 172 H 181 H (75-99) mg/dL Calcium (8.4-10.2) mg/dL Phosphorus (2.5-4.5) mg/dL Magnesium (1.6-2.3) mg/dL AST (14-36) U/L ALT (9-52) U/L Alkaline Phosphatase (38-126) U/L Total Protein (6.3-8.2) g/dL Albumin (3.5-5.0) g/dL 03/13/17 03/13/17 03/13/17 Range/Units 04:22 04:22 04:32 WBC (3.8-10.6) k/uL RBC 3.01 L (3.80-5.40) m/uL Hgb 7.3 L (11.4-16.0) gm/dL Hct 23.1 L (34.0-46.0) % MCV 77.0 L (80.0-100.0) fL MCH 24.4 L (25.0-35.0) pg MCHC (31.0-37.0) g/dL RDW 24.1 H (11.5-15.5) % ABG pH 7.50 H (7.35-7.45) ABG pCO2 31 L (35-45) mmHg ABG pO2 60 L (83-108) mmHg ABG Total CO2 25 H (19-24) mmol/L ABG O2 Saturation 93.0 L (94-97) % Chloride 110 H (98-107) mmol/L BUN 66 H (7-17) mg/dL Creatinine 1.10 H (0.52-1.04) mg/dL Glucose 176 H (74-99) mg/dL POC Glucose (mg/dL) (75-99) mg/dL Calcium 7.2 L (8.4-10.2) mg/dL Phosphorus 5.0 H (2.5-4.5) mg/dL Magnesium 2.5 H (1.6-2.3) mg/dL AST 44 H (14-36) U/L ALT 63 H (9-52) U/L Alkaline Phosphatase 195 H (38-126) U/L Total Protein 4.5 L (6.3-8.2) g/dL Albumin 2.2 L (3.5-5.0) g/dL 03/13/17 03/13/17 03/13/17 Range/Units 06:04 06:58 07:58 WBC (3.8-10.6) k/uL RBC (3.80-5.40) m/uL Hgb (11.4-16.0) gm/dL Hct (34.0-46.0) % MCV (80.0-100.0) fL MCH (25.0-35.0) pg MCHC (31.0-37.0) g/dL RDW (11.5-15.5) % ABG pH (7.35-7.45) ABG pCO2 (35-45) mmHg ABG pO2 (83-108) mmHg ABG Total CO2 (19-24) mmol/L ABG O2 Saturation (94-97) % Chloride (98-107) mmol/L BUN (7-17) mg/dL Creatinine (0.52-1.04) mg/dL Glucose (74-99) mg/dL POC Glucose (mg/dL) 184 H 202 H 207 H (75-99) mg/dL Calcium (8.4-10.2) mg/dL Phosphorus (2.5-4.5) mg/dL Magnesium (1.6-2.3) mg/dL AST (14-36) U/L ALT (9-52) U/L Alkaline Phosphatase (38-126) U/L Total Protein (6.3-8.2) g/dL Albumin (3.5-5.0) g/dL 03/13/17 03/13/17 03/13/17 Range/Units 09:05 10:15 10:57 WBC (3.8-10.6) k/uL RBC (3.80-5.40) m/uL Hgb (11.4-16.0) gm/dL Hct (34.0-46.0) % MCV (80.0-100.0) fL MCH (25.0-35.0) pg MCHC (31.0-37.0) g/dL RDW (11.5-15.5) % ABG pH (7.35-7.45) ABG pCO2 (35-45) mmHg ABG pO2 (83-108) mmHg ABG Total CO2 (19-24) mmol/L ABG O2 Saturation (94-97) % Chloride (98-107) mmol/L BUN (7-17) mg/dL Creatinine (0.52-1.04) mg/dL Glucose (74-99) mg/dL POC Glucose (mg/dL) 173 H 155 H 128 H (75-99) mg/dL Calcium (8.4-10.2) mg/dL Phosphorus (2.5-4.5) mg/dL Magnesium (1.6-2.3) mg/dL AST (14-36) U/L ALT (9-52) U/L Alkaline Phosphatase (38-126) U/L Total Protein (6.3-8.2) g/dL Albumin (3.5-5.0) g/dL 03/13/17 03/13/17 Range/Units 12:08 13:04 WBC (3.8-10.6) k/uL RBC (3.80-5.40) m/uL Hgb (11.4-16.0) gm/dL Hct (34.0-46.0) % MCV (80.0-100.0) fL MCH (25.0-35.0) pg MCHC (31.0-37.0) g/dL RDW (11.5-15.5) % ABG pH (7.35-7.45) ABG pCO2 (35-45) mmHg ABG pO2 (83-108) mmHg ABG Total CO2 (19-24) mmol/L ABG O2 Saturation (94-97) % Chloride (98-107) mmol/L BUN (7-17) mg/dL Creatinine (0.52-1.04) mg/dL Glucose (74-99) mg/dL POC Glucose (mg/dL) 111 H 131 H (75-99) mg/dL Calcium (8.4-10.2) mg/dL Phosphorus (2.5-4.5) mg/dL Magnesium (1.6-2.3) mg/dL AST (14-36) U/L ALT (9-52) U/L Alkaline Phosphatase (38-126) U/L Total Protein (6.3-8.2) g/dL Albumin (3.5-5.0) g/dL Microbiology - Last 24 Hours (Table) 03/11/17 17:53 Gram Stain - Preliminary Sputum Sputum Culture - Preliminary Gram Neg Bacilli Assessment and Plan Plan: Assessment 1 aortic valve replacement for severe bicuspid aortic valve stenosis, patient is postop day #8 2 postoperative mediastinal bleeding, recovered 3 postoperative cardiac arrhythmia, asystole, status post insertion of a pacemaker 4 postoperative respiratory failure, expected outcome of surgery. The patient failed extubation yesterday. The patient had to be reintubated. Currently assist-control mode of ventilation. Chest x-ray shows cardiomegaly with some mild pulmonary vascular congestion. 5 iatrogenic left-sided pneumothorax status post chest tube insertion with successful expansion of the left lung without evidence of any air leak. 6 hypertension, history of 7 CVA/TIA, history of 8 bronchial asthma, history of 9 obesity 10 restrictive lung physiology on preop spirometry with an FEV1 of 56% of predicted. 11 thrombocytopenia, recovered 12 postoperative anemia, expected, hemoglobin is at 7.3 Plan Keep the chest tube in place. Continue vent support. No changes on the mechanical ventilator. Give the patient sedation holiday and assess his readiness to wean. This will be done on daily basis. Continue aspirin. Continue Plavix. Continue daily diuretics and the patient will be given 40 mg of IV Lasix today. Monitor urine output. Monitor renal function. The patient is on beta blockers. We'll continue to follow. This will be potentially a difficult wean specially the patient has significant restrictive physiology on a function test preoperatively. We'll continue to follow. We'll give her daily sedation holidays and weaning trials. There is a critically care evaluation done in more than 30 minutes. Time with Patient: Greater than 30
[2017-03-13 15:33] LABS: Glucose,Whole Blood 115 mg/dL (75-99)
[2017-03-13 16:28] LABS: Glucose,Whole Blood 115 mg/dL (75-99)
--- NOTE | 2017-03-13 16:28 | P.PN ---
Subjective Principal diagnosis: Critical aortic stenosis with bicuspid valve and aortic insufficiency, congestive heart failure, CVA/TIA, diabetes mellitus type 2, hyperlipidemia, hypertension, osteoarthritis, coronary artery disease, preoperative paroxysmal atrial fibrillation, neuropathy, pericarditis, scoliosis and history of brain concussion. POD #9, elective aortic valve replacement with a 25 mm Magna-Ease bioprosthetic aortic valve, a clip ligation into the left atrial appendage with a #35 mm Atriclip and intraoperative transesophageal echocardiogram. POD #9, emergent evacuation of clots, chest exploration and control of bleeding. Acute postoperative blood loss anemia, and expected outcome of surgery. Postoperative hypoxic respiratory failure requiring prolonged mechanical ventilation, a potential expected outcome of surgery. POD #7 placement of right pleural chest tube for pleural effusion. Postoperative hypovolemic shock, inherent to the surgery Postoperative paroxysmal atrial fibrillation, and expected outcome of surgery. POD #1 dual-chamber pacemaker insertion with fluoroscopy, placed for cardiac rhythm consistent with AV node dysfunction. POD #1 placement of left pleural chest tube by Dr. Soler for a left pneumothorax. Patient remains intubated on mechanical ventilator support and is sedated on Diprivan at 15 mcg/kg/m. She is following verbal commands appropriately and moving all 4 extremities appropriately. No acute distress. She is currently paced DDD heart rate 70. Objective - Vital Signs Vital signs: Vital Signs Temp 98.1 F 03/13/17 12:00 Pulse 80 03/13/17 15:45 Resp 28 H 03/13/17 13:00 BP 112/40 03/13/17 11:00 Pulse Ox 93 L 03/13/17 13:00 Intake & Output 03/12/17 03/13/17 03/13/17 18:59 06:59 18:59 Intake Total 5407.650 0684.318 707.679 Output Total 1482 885 730 Balance 236.606 546.318 -22.321 Weight 88.6 kg Intake: IV 542 513 212 Dextrose 5% in Water 1, 480 480 160 000 ml @ 40 mls/hr IV . Q24H [facility] Rx#:[id number] Sodium Chloride 0.9% 1, 40 000 ml @ 20 mls/hr IV . Q24H [facility] Rx#:[id number] pressure bag 12 33 12 Intake, IV Titration 516.606 268.318 125.679 Amount Insulin Regular 100 unit 38.294 22.434 61.281 In Sodium Chloride 0.9% 100 ml @ Per Protocol IV .Q0M [facility] Rx#:[id number] Norepinephrin 4 mg-0.9% 178.312 71.688 14.25 Ns Pmx 4 mg In 250 ml @ Titrate IV .Q0M [facility] Rx#: [id number] Propofol 1,000 mg In 100 200.00 174.196 50.148 ml @ Titrate IV .Q0M [facility] Rx#:[id number] ceFAZolin 1,000 mg In 100 Dextrose/Water 1 50ml.bag @ 100 mls/hr IVPB ONCE ONE Rx#:[id number] Tube Feeding 40 560 280 Blood Product 620 Rc Pheresis 2 As3 Unit 310 [id number] Other 90 90 Output: Chest Tube Drainage 56 60 Chest Tube Left Lateral 56 60 Chest Drainage 5 Left Chest 5 Urine 1425 885 665 Estimated Blood Loss 1 Other: Voiding Method Indwelling Catheter Indwelling Catheter Indwelling Catheter ABP, PAP, CO, CI - Last Documented Arterial Blood Pressure 139/42 Pulmonary Artery Pressure 43/32 Cardiac Output 3.9 Cardiac Index 2.3 - Constitutional General appearance: Present: no acute distress - EENT Eyes: Present: PERRLA, normal appearance - Neck Details: No JVD present. - Respiratory Details: Scattered rhonchi throughout, diminished bilateral bases. Respirations are symmetrical and unlabored with mechanical ventilator support. Current ventilator settings are as follows: AC 14, TV 400, FiO2 50%, PEEP 5. Left pleural chest tube without air leak, remains to continuous low wall suction. Draining thin serosanguineous drainage. 100 mL output in 24 hours. - Cardiovascular Details: Regular rhythm and rate, S1 and S2, negative for S3, gallop or murmur. Sternum is stable. Left brachial PICC line present and patent. Generalized +2 edema. Knee-high CHAVA hose and sequential compression devices in place to her bilateral lower extremities. Heart hugger in place. - Gastrointestinal Gastrointestinal Comment(s): Abdomen soft, nontender, distended. Bowel sounds are present to all 4 abdominal quadrants. OG tube in place with vital high-protein infusing at a goal rate of 40 mL per hour with 30 mL every 4 hour automatic water flushes. Positive bowel movement this a.m. - Genitourinary Genitourinary Comment(s): Adequate urine output, clear yellow urine. Cuellar catheter for accurate I&O. - Integumentary Integumentary Comment(s): Stage I erythremia to her left buttock. Midline sternal incision clean dry and well approximated. Dressing is clean, dry and intact. Left infraclavicular incision clean dry and well approximated. No drainage noted. - Musculoskeletal Musculoskeletal: Present: generalized weakness, strength equal bilaterally - Psychiatric Psychiatric Comment(s): She remain sedated with mechanical ventilator support. Following some simple commands appropriately. Moving all 4 extremities appropriately. - Allied health notes Allied health notes reviewed: nursing - Labs CBC & Chem 7: 03/13/17 04:22 03/13/17 04:22 Labs: Abnormal Lab Results - Last 24 Hours (Table) 03/12/17 03/12/17 03/12/17 Range/Units 17:38 19:09 20:09 WBC (3.8-10.6) k/uL RBC (3.80-5.40) m/uL Hgb (11.4-16.0) gm/dL Hct (34.0-46.0) % MCV (80.0-100.0) fL MCH (25.0-35.0) pg MCHC (31.0-37.0) g/dL RDW (11.5-15.5) % ABG pH (7.35-7.45) ABG pCO2 (35-45) mmHg ABG pO2 (83-108) mmHg ABG Total CO2 (19-24) mmol/L ABG O2 Saturation (94-97) % Chloride (98-107) mmol/L BUN (7-17) mg/dL Creatinine (0.52-1.04) mg/dL Glucose (74-99) mg/dL POC Glucose (mg/dL) 161 H 112 H 113 H (75-99) mg/dL Calcium (8.4-10.2) mg/dL Phosphorus (2.5-4.5) mg/dL Magnesium (1.6-2.3) mg/dL AST (14-36) U/L ALT (9-52) U/L Alkaline Phosphatase (38-126) U/L Total Protein (6.3-8.2) g/dL Albumin (3.5-5.0) g/dL 03/12/17 03/12/17 03/12/17 Range/Units 20:15 21:20 21:22 WBC 13.0 H (3.8-10.6) k/uL RBC 3.42 L (3.80-5.40) m/uL Hgb 8.3 L (11.4-16.0) gm/dL Hct 27.0 L (34.0-46.0) % MCV 78.7 L (80.0-100.0) fL MCH 24.1 L (25.0-35.0) pg MCHC 30.6 L (31.0-37.0) g/dL RDW 24.6 H (11.5-15.5) % ABG pH 7.48 H (7.35-7.45) ABG pCO2 31 L (35-45) mmHg ABG pO2 68 L (83-108) mmHg ABG Total CO2 (19-24) mmol/L ABG O2 Saturation (94-97) % Chloride (98-107) mmol/L BUN (7-17) mg/dL Creatinine (0.52-1.04) mg/dL Glucose (74-99) mg/dL POC Glucose (mg/dL) 139 H (75-99) mg/dL Calcium (8.4-10.2) mg/dL Phosphorus (2.5-4.5) mg/dL Magnesium (1.6-2.3) mg/dL AST (14-36) U/L ALT (9-52) U/L Alkaline Phosphatase (38-126) U/L Total Protein (6.3-8.2) g/dL Albumin (3.5-5.0) g/dL 03/12/17 03/12/17 03/13/17 Range/Units 22:11 23:25 00:01 WBC (3.8-10.6) k/uL RBC (3.80-5.40) m/uL Hgb (11.4-16.0) gm/dL Hct (34.0-46.0) % MCV (80.0-100.0) fL MCH (25.0-35.0) pg MCHC (31.0-37.0) g/dL RDW (11.5-15.5) % ABG pH (7.35-7.45) ABG pCO2 (35-45) mmHg ABG pO2 (83-108) mmHg ABG Total CO2 (19-24) mmol/L ABG O2 Saturation (94-97) % Chloride (98-107) mmol/L BUN (7-17) mg/dL Creatinine (0.52-1.04) mg/dL Glucose (74-99) mg/dL POC Glucose (mg/dL) 146 H 181 H 178 H (75-99) mg/dL Calcium (8.4-10.2) mg/dL Phosphorus (2.5-4.5) mg/dL Magnesium (1.6-2.3) mg/dL AST (14-36) U/L ALT (9-52) U/L Alkaline Phosphatase (38-126) U/L Total Protein (6.3-8.2) g/dL Albumin (3.5-5.0) g/dL 03/13/17 03/13/17 03/13/17 Range/Units 01:09 01:53 02:56 WBC (3.8-10.6) k/uL RBC (3.80-5.40) m/uL Hgb (11.4-16.0) gm/dL Hct (34.0-46.0) % MCV (80.0-100.0) fL MCH (25.0-35.0) pg MCHC (31.0-37.0) g/dL RDW (11.5-15.5) % ABG pH (7.35-7.45) ABG pCO2 (35-45) mmHg ABG pO2 (83-108) mmHg ABG Total CO2 (19-24) mmol/L ABG O2 Saturation (94-97) % Chloride (98-107) mmol/L BUN (7-17) mg/dL Creatinine (0.52-1.04) mg/dL Glucose (74-99) mg/dL POC Glucose (mg/dL) 173 H 169 H 172 H (75-99) mg/dL Calcium (8.4-10.2) mg/dL Phosphorus (2.5-4.5) mg/dL Magnesium (1.6-2.3) mg/dL AST (14-36) U/L ALT (9-52) U/L Alkaline Phosphatase (38-126) U/L Total Protein (6.3-8.2) g/dL Albumin (3.5-5.0) g/dL 03/13/17 03/13/17 03/13/17 Range/Units 04:10 04:22 04:22 WBC (3.8-10.6) k/uL RBC 3.01 L (3.80-5.40) m/uL Hgb 7.3 L (11.4-16.0) gm/dL Hct 23.1 L (34.0-46.0) % MCV 77.0 L (80.0-100.0) fL MCH 24.4 L (25.0-35.0) pg MCHC (31.0-37.0) g/dL RDW 24.1 H (11.5-15.5) % ABG pH (7.35-7.45) ABG pCO2 (35-45) mmHg ABG pO2 (83-108) mmHg ABG Total CO2 (19-24) mmol/L ABG O2 Saturation (94-97) % Chloride 110 H (98-107) mmol/L BUN 66 H (7-17) mg/dL Creatinine 1.10 H (0.52-1.04) mg/dL Glucose 176 H (74-99) mg/dL POC Glucose (mg/dL) 181 H (75-99) mg/dL Calcium 7.2 L (8.4-10.2) mg/dL Phosphorus 5.0 H (2.5-4.5) mg/dL Magnesium 2.5 H (1.6-2.3) mg/dL AST 44 H (14-36) U/L ALT 63 H (9-52) U/L Alkaline Phosphatase 195 H (38-126) U/L Total Protein 4.5 L (6.3-8.2) g/dL Albumin 2.2 L (3.5-5.0) g/dL 03/13/17 03/13/17 03/13/17 Range/Units 04:32 06:04 06:58 WBC (3.8-10.6) k/uL RBC (3.80-5.40) m/uL Hgb (11.4-16.0) gm/dL Hct (34.0-46.0) % MCV (80.0-100.0) fL MCH (25.0-35.0) pg MCHC (31.0-37.0) g/dL RDW (11.5-15.5) % ABG pH 7.50 H (7.35-7.45) ABG pCO2 31 L (35-45) mmHg ABG pO2 60 L (83-108) mmHg ABG Total CO2 25 H (19-24) mmol/L ABG O2 Saturation 93.0 L (94-97) % Chloride (98-107) mmol/L BUN (7-17) mg/dL Creatinine (0.52-1.04) mg/dL Glucose (74-99) mg/dL POC Glucose (mg/dL) 184 H 202 H (75-99) mg/dL Calcium (8.4-10.2) mg/dL Phosphorus (2.5-4.5) mg/dL Magnesium (1.6-2.3) mg/dL AST (14-36) U/L ALT (9-52) U/L Alkaline Phosphatase (38-126) U/L Total Protein (6.3-8.2) g/dL Albumin (3.5-5.0) g/dL 03/13/17 03/13/17 03/13/17 Range/Units 07:58 09:05 10:15 WBC (3.8-10.6) k/uL RBC (3.80-5.40) m/uL Hgb (11.4-16.0) gm/dL Hct (34.0-46.0) % MCV (80.0-100.0) fL MCH (25.0-35.0) pg MCHC (31.0-37.0) g/dL RDW (11.5-15.5) % ABG pH (7.35-7.45) ABG pCO2 (35-45) mmHg ABG pO2 (83-108) mmHg ABG Total CO2 (19-24) mmol/L ABG O2 Saturation (94-97) % Chloride (98-107) mmol/L BUN (7-17) mg/dL Creatinine (0.52-1.04) mg/dL Glucose (74-99) mg/dL POC Glucose (mg/dL) 207 H 173 H 155 H (75-99) mg/dL Calcium (8.4-10.2) mg/dL Phosphorus (2.5-4.5) mg/dL Magnesium (1.6-2.3) mg/dL AST (14-36) U/L ALT (9-52) U/L Alkaline Phosphatase (38-126) U/L Total Protein (6.3-8.2) g/dL Albumin (3.5-5.0) g/dL 03/13/17 03/13/17 03/13/17 Range/Units 10:57 12:08 13:04 WBC (3.8-10.6) k/uL RBC (3.80-5.40) m/uL Hgb (11.4-16.0) gm/dL Hct (34.0-46.0) % MCV (80.0-100.0) fL MCH (25.0-35.0) pg MCHC (31.0-37.0) g/dL RDW (11.5-15.5) % ABG pH (7.35-7.45) ABG pCO2 (35-45) mmHg ABG pO2 (83-108) mmHg ABG Total CO2 (19-24) mmol/L ABG O2 Saturation (94-97) % Chloride (98-107) mmol/L BUN (7-17) mg/dL Creatinine (0.52-1.04) mg/dL Glucose (74-99) mg/dL POC Glucose (mg/dL) 128 H 111 H 131 H (75-99) mg/dL Calcium (8.4-10.2) mg/dL Phosphorus (2.5-4.5) mg/dL Magnesium (1.6-2.3) mg/dL AST (14-36) U/L ALT (9-52) U/L Alkaline Phosphatase (38-126) U/L Total Protein (6.3-8.2) g/dL Albumin (3.5-5.0) g/dL 03/13/17 03/13/17 Range/Units 14:01 15:31 WBC (3.8-10.6) k/uL RBC (3.80-5.40) m/uL Hgb (11.4-16.0) gm/dL Hct (34.0-46.0) % MCV (80.0-100.0) fL MCH (25.0-35.0) pg MCHC (31.0-37.0) g/dL RDW (11.5-15.5) % ABG pH (7.35-7.45) ABG pCO2 (35-45) mmHg ABG pO2 (83-108) mmHg ABG Total CO2 (19-24) mmol/L ABG O2 Saturation (94-97) % Chloride (98-107) mmol/L BUN (7-17) mg/dL Creatinine (0.52-1.04) mg/dL Glucose (74-99) mg/dL POC Glucose (mg/dL) 129 H 115 H (75-99) mg/dL Calcium (8.4-10.2) mg/dL Phosphorus (2.5-4.5) mg/dL Magnesium (1.6-2.3) mg/dL AST (14-36) U/L ALT (9-52) U/L Alkaline Phosphatase (38-126) U/L Total Protein (6.3-8.2) g/dL Albumin (3.5-5.0) g/dL Microbiology - Last 24 Hours (Table) 03/11/17 17:53 Gram Stain - Preliminary Sputum Sputum Culture - Preliminary Gram Neg Bacilli - Imaging and Cardiology Chest x-ray: report reviewed, image reviewed Assessment and Plan (1) Paroxysmal atrial fibrillation Status: Acute (2) Acute blood loss as cause of postoperative anemia Status: Acute (3) Status post aortic valve replacement Status: Acute (4) Bicuspid aortic valve Status: Acute (5) Diabetes mellitus, insulin dependent (IDDM), controlled Status: Acute (6) Hypertension Status: Acute (7) Severe aortic stenosis Status: Acute (8) Pneumothorax, left Status: Acute (9) History of TIA (transient ischemic attack) Status: Acute (10) Hyperlipidemia Status: Acute (11) Osteoarthritis Status: Acute Plan: 1. Continue aspirin, Plavix, metoprolol, and lisinopril. Her atorvastatin remains on hold due to her elevated liver enzymes. 2. Decreased digitoxin to 125 g IVP daily. We will obtain a digoxin level in the a.m 03/14/2017. 3. Pulmonary and ventilator management per Dr. Soler. 4. Monitor daily labs and chest x-ray. 5. DVT and GI prophylaxis in place. 6. Comorbid conditions per primary care management. 7. We will discontinue her to D5 W and increase her automatic water flushes to 60 mL every 4 hours. 8. We will discontinue her epicardial pacemaker wires. 9. We will give her Lasix 40 mg IV 1 today. 10. More recommendations as patient progresses. Time with Patient: Greater than 30
--- NOTE | 2017-03-13 17:04 | OP ---
DATE OF OPERATION: 03/12/2017 ATTENDING SURGEON: Dr. Han Aguirre PREOPERATIVE DIAGNOSIS: Sick sinus syndrome. POSTOPERATIVE DIAGNOSIS: Sick sinus syndrome. PROCEDURE: Dual chamber pacemaker insertion, transvenous under fluoroscopic vision. ANESTHESIA: General. BLOOD LOSS: Scant. SUMMARY: Patient brought intubated to the operating room, placed in supine position. Upon administration of a general anesthetic, the chest was prepped and draped in normal sterile fashion using ( ) and sterile towels. A pocket for the pacemaker was created in the left infraclavicular region. At this point the left subclavian vein was cannulated twice. Two guide wires passed under fluoroscopic vision. Dilators and sheaths were placed. The first ventricular lead, a Medtronic model #5076, 58 cm, serial #[id number], positioned in the apex of the right ventricle and screwed in. Paced R-waves were 11 millivolts, an impedance of 907 ohms and a pacing threshold of 0.4 volts at 0.5 milliseconds. Next, the atrial lead, Medtronic 5076, 52 cm, serial #[id number] was positioned in the right atrial appendage and screwed in. Fib waves were 1.7 to 2.2 millivolts and impedance of 498 ohms. These were then connected to the Medtronic pulse generator model #A2DR01, serial # [id number]. Both leads were screwed into the generator and the screws tightened. The generator placed in the pocket, tacked to the underlying fascia and the pocket closed in three layers. Steri-Strips were applied. There were no complications. The patient tolerated the procedure well and was taken back to the ICU in stable condition. SIMONA
[2017-03-13 17:15] LABS: Glucose,Whole Blood 111 mg/dL (75-99)
[2017-03-13] MEDS ORDERED: hydrALAZINE HCL 20 MG/ML 1 ML VIAL IM PRN (17:21)
[2017-03-13 18:05] LABS: Glucose,Whole Blood 143 mg/dL (75-99)
[2017-03-13 18:55] LABS: Glucose,Whole Blood 137 mg/dL (75-99)
[2017-03-13 19:48] LABS: Glucose,Whole Blood 126 mg/dL (75-99)
--- NOTE | 2017-03-13 19:59 | PCN ---
PROCEDURE PERFORMED: INSERTION OF CHEST TUBE: PREOPERATIVE DIAGNOSIS: Left sided pneumothorax, iatrogenic. Post pacemaker insertion. POSTOPERATIVE DIAGNOSIS: Left sided pneumothorax, iatrogenic. Post pacemaker insertion. ( ). I inserted a #28 Welsh chest tube successful into the left hemithorax. No complications. Chest x-ray to follow. CELESTED
--- NOTE | 2017-03-13 20:18 | P.PN ---
Subjective Principal diagnosis: Status post aVR This is a pleasant 76-year-old female patient who sees Dr. STELLA Lazaro as an outpatient who was diagnosed recently with symptomatic severe aortic stenosis secondary to bicuspid aortic valve. The patient underwent aVR using a bioprosthetic aortic valve. Hemodynamically just got of the Levophed. She underwent a PPM yesterday which was complicate by pneumothorax. She had a chest tube. Objective - Vital Signs Vital signs: Vital Signs Temp 98.2 F 03/13/17 16:00 Pulse 87 03/13/17 19:48 Resp 36 H 03/13/17 19:00 BP 143/45 03/13/17 19:00 Pulse Ox 93 L 03/13/17 19:00 Intake & Output 03/13/17 03/13/17 03/14/17 06:59 18:59 06:59 Intake Total 8545.769 5672.435 5.555 Output Total 885 1130 Balance 546.318 -37.565 5.555 Weight 88.6 kg Intake: IV 513 318 Dextrose 5% in Water 1, 480 160 000 ml @ 40 mls/hr IV . Q24H [facility] Rx#:[id number] Sodium Chloride 0.9% 1, 140 000 ml @ 20 mls/hr IV . Q24H [facility] Rx#:[id number] pressure bag 33 18 Intake, IV Titration 268.318 144.435 5.555 Amount Insulin Regular 100 unit 22.434 77.891 5.555 In Sodium Chloride 0.9% 100 ml @ Per Protocol IV .Q0M [facility] Rx#:[id number] Norepinephrin 4 mg-0.9% 71.688 14.25 Ns Pmx 4 mg In 250 ml @ Titrate IV .Q0M [facility] Rx#: [id number] Propofol 1,000 mg In 100 174.196 52.294 ml @ Titrate IV .Q0M [facility] Rx#:[id number] Tube Feeding 560 480 Other 90 150 Output: Chest Tube Drainage 80 Chest Tube Left Lateral 80 Chest Drainage 5 Left Chest 5 Urine 885 1045 Other: Voiding Method Indwelling Catheter Indwelling Catheter ABP, PAP, CO, CI - Last Documented Arterial Blood Pressure 135/44 Pulmonary Artery Pressure 43/32 Cardiac Output 3.9 Cardiac Index 2.3 - Constitutional General appearance: Present: mild distress - Respiratory Respiratory: bilateral: diminished - Cardiovascular Rhythm: regular - Labs CBC & Chem 7: 03/13/17 04:22 03/13/17 04:22 Labs: Abnormal Lab Results - Last 24 Hours (Table) 03/12/17 03/12/17 03/12/17 Range/Units 20:15 21:20 21:22 WBC 13.0 H (3.8-10.6) k/uL RBC 3.42 L (3.80-5.40) m/uL Hgb 8.3 L (11.4-16.0) gm/dL Hct 27.0 L (34.0-46.0) % MCV 78.7 L (80.0-100.0) fL MCH 24.1 L (25.0-35.0) pg MCHC 30.6 L (31.0-37.0) g/dL RDW 24.6 H (11.5-15.5) % ABG pH 7.48 H (7.35-7.45) ABG pCO2 31 L (35-45) mmHg ABG pO2 68 L (83-108) mmHg ABG Total CO2 (19-24) mmol/L ABG O2 Saturation (94-97) % Chloride (98-107) mmol/L BUN (7-17) mg/dL Creatinine (0.52-1.04) mg/dL Glucose (74-99) mg/dL POC Glucose (mg/dL) 139 H (75-99) mg/dL Calcium (8.4-10.2) mg/dL Phosphorus (2.5-4.5) mg/dL Magnesium (1.6-2.3) mg/dL AST (14-36) U/L ALT (9-52) U/L Alkaline Phosphatase (38-126) U/L Total Protein (6.3-8.2) g/dL Albumin (3.5-5.0) g/dL 03/12/17 03/12/17 03/13/17 Range/Units 22:11 23:25 00:01 WBC (3.8-10.6) k/uL RBC (3.80-5.40) m/uL Hgb (11.4-16.0) gm/dL Hct (34.0-46.0) % MCV (80.0-100.0) fL MCH (25.0-35.0) pg MCHC (31.0-37.0) g/dL RDW (11.5-15.5) % ABG pH (7.35-7.45) ABG pCO2 (35-45) mmHg ABG pO2 (83-108) mmHg ABG Total CO2 (19-24) mmol/L ABG O2 Saturation (94-97) % Chloride (98-107) mmol/L BUN (7-17) mg/dL Creatinine (0.52-1.04) mg/dL Glucose (74-99) mg/dL POC Glucose (mg/dL) 146 H 181 H 178 H (75-99) mg/dL Calcium (8.4-10.2) mg/dL Phosphorus (2.5-4.5) mg/dL Magnesium (1.6-2.3) mg/dL AST (14-36) U/L ALT (9-52) U/L Alkaline Phosphatase (38-126) U/L Total Protein (6.3-8.2) g/dL Albumin (3.5-5.0) g/dL 03/13/17 03/13/17 03/13/17 Range/Units 01:09 01:53 02:56 WBC (3.8-10.6) k/uL RBC (3.80-5.40) m/uL Hgb (11.4-16.0) gm/dL Hct (34.0-46.0) % MCV (80.0-100.0) fL MCH (25.0-35.0) pg MCHC (31.0-37.0) g/dL RDW (11.5-15.5) % ABG pH (7.35-7.45) ABG pCO2 (35-45) mmHg ABG pO2 (83-108) mmHg ABG Total CO2 (19-24) mmol/L ABG O2 Saturation (94-97) % Chloride (98-107) mmol/L BUN (7-17) mg/dL Creatinine (0.52-1.04) mg/dL Glucose (74-99) mg/dL POC Glucose (mg/dL) 173 H 169 H 172 H (75-99) mg/dL Calcium (8.4-10.2) mg/dL Phosphorus (2.5-4.5) mg/dL Magnesium (1.6-2.3) mg/dL AST (14-36) U/L ALT (9-52) U/L Alkaline Phosphatase (38-126) U/L Total Protein (6.3-8.2) g/dL Albumin (3.5-5.0) g/dL 03/13/17 03/13/17 03/13/17 Range/Units 04:10 04:22 04:22 WBC (3.8-10.6) k/uL RBC 3.01 L (3.80-5.40) m/uL Hgb 7.3 L (11.4-16.0) gm/dL Hct 23.1 L (34.0-46.0) % MCV 77.0 L (80.0-100.0) fL MCH 24.4 L (25.0-35.0) pg MCHC (31.0-37.0) g/dL RDW 24.1 H (11.5-15.5) % ABG pH (7.35-7.45) ABG pCO2 (35-45) mmHg ABG pO2 (83-108) mmHg ABG Total CO2 (19-24) mmol/L ABG O2 Saturation (94-97) % Chloride 110 H (98-107) mmol/L BUN 66 H (7-17) mg/dL Creatinine 1.10 H (0.52-1.04) mg/dL Glucose 176 H (74-99) mg/dL POC Glucose (mg/dL) 181 H (75-99) mg/dL Calcium 7.2 L (8.4-10.2) mg/dL Phosphorus 5.0 H (2.5-4.5) mg/dL Magnesium 2.5 H (1.6-2.3) mg/dL AST 44 H (14-36) U/L ALT 63 H (9-52) U/L Alkaline Phosphatase 195 H (38-126) U/L Total Protein 4.5 L (6.3-8.2) g/dL Albumin 2.2 L (3.5-5.0) g/dL 03/13/17 03/13/17 03/13/17 Range/Units 04:32 06:04 06:58 WBC (3.8-10.6) k/uL RBC (3.80-5.40) m/uL Hgb (11.4-16.0) gm/dL Hct (34.0-46.0) % MCV (80.0-100.0) fL MCH (25.0-35.0) pg MCHC (31.0-37.0) g/dL RDW (11.5-15.5) % ABG pH 7.50 H (7.35-7.45) ABG pCO2 31 L (35-45) mmHg ABG pO2 60 L (83-108) mmHg ABG Total CO2 25 H (19-24) mmol/L ABG O2 Saturation 93.0 L (94-97) % Chloride (98-107) mmol/L BUN (7-17) mg/dL Creatinine (0.52-1.04) mg/dL Glucose (74-99) mg/dL POC Glucose (mg/dL) 184 H 202 H (75-99) mg/dL Calcium (8.4-10.2) mg/dL Phosphorus (2.5-4.5) mg/dL Magnesium (1.6-2.3) mg/dL AST (14-36) U/L ALT (9-52) U/L Alkaline Phosphatase (38-126) U/L Total Protein (6.3-8.2) g/dL Albumin (3.5-5.0) g/dL 03/13/17 03/13/17 03/13/17 Range/Units 07:58 09:05 10:15 WBC (3.8-10.6) k/uL RBC (3.80-5.40) m/uL Hgb (11.4-16.0) gm/dL Hct (34.0-46.0) % MCV (80.0-100.0) fL MCH (25.0-35.0) pg MCHC (31.0-37.0) g/dL RDW (11.5-15.5) % ABG pH (7.35-7.45) ABG pCO2 (35-45) mmHg ABG pO2 (83-108) mmHg ABG Total CO2 (19-24) mmol/L ABG O2 Saturation (94-97) % Chloride (98-107) mmol/L BUN (7-17) mg/dL Creatinine (0.52-1.04) mg/dL Glucose (74-99) mg/dL POC Glucose (mg/dL) 207 H 173 H 155 H (75-99) mg/dL Calcium (8.4-10.2) mg/dL Phosphorus (2.5-4.5) mg/dL Magnesium (1.6-2.3) mg/dL AST (14-36) U/L ALT (9-52) U/L Alkaline Phosphatase (38-126) U/L Total Protein (6.3-8.2) g/dL Albumin (3.5-5.0) g/dL 03/13/17 03/13/17 03/13/17 Range/Units 10:57 12:08 13:04 WBC (3.8-10.6) k/uL RBC (3.80-5.40) m/uL Hgb (11.4-16.0) gm/dL Hct (34.0-46.0) % MCV (80.0-100.0) fL MCH (25.0-35.0) pg MCHC (31.0-37.0) g/dL RDW (11.5-15.5) % ABG pH (7.35-7.45) ABG pCO2 (35-45) mmHg ABG pO2 (83-108) mmHg ABG Total CO2 (19-24) mmol/L ABG O2 Saturation (94-97) % Chloride (98-107) mmol/L BUN (7-17) mg/dL Creatinine (0.52-1.04) mg/dL Glucose (74-99) mg/dL POC Glucose (mg/dL) 128 H 111 H 131 H (75-99) mg/dL Calcium (8.4-10.2) mg/dL Phosphorus (2.5-4.5) mg/dL Magnesium (1.6-2.3) mg/dL AST (14-36) U/L ALT (9-52) U/L Alkaline Phosphatase (38-126) U/L Total Protein (6.3-8.2) g/dL Albumin (3.5-5.0) g/dL 03/13/17 03/13/17 03/13/17 Range/Units 14:01 15:31 16:27 WBC (3.8-10.6) k/uL RBC (3.80-5.40) m/uL Hgb (11.4-16.0) gm/dL Hct (34.0-46.0) % MCV (80.0-100.0) fL MCH (25.0-35.0) pg MCHC (31.0-37.0) g/dL RDW (11.5-15.5) % ABG pH (7.35-7.45) ABG pCO2 (35-45) mmHg ABG pO2 (83-108) mmHg ABG Total CO2 (19-24) mmol/L ABG O2 Saturation (94-97) % Chloride (98-107) mmol/L BUN (7-17) mg/dL Creatinine (0.52-1.04) mg/dL Glucose (74-99) mg/dL POC Glucose (mg/dL) 129 H 115 H 115 H (75-99) mg/dL Calcium (8.4-10.2) mg/dL Phosphorus (2.5-4.5) mg/dL Magnesium (1.6-2.3) mg/dL AST (14-36) U/L ALT (9-52) U/L Alkaline Phosphatase (38-126) U/L Total Protein (6.3-8.2) g/dL Albumin (3.5-5.0) g/dL 03/13/17 03/13/17 03/13/17 Range/Units 17:14 18:03 18:52 WBC (3.8-10.6) k/uL RBC (3.80-5.40) m/uL Hgb (11.4-16.0) gm/dL Hct (34.0-46.0) % MCV (80.0-100.0) fL MCH (25.0-35.0) pg MCHC (31.0-37.0) g/dL RDW (11.5-15.5) % ABG pH (7.35-7.45) ABG pCO2 (35-45) mmHg ABG pO2 (83-108) mmHg ABG Total CO2 (19-24) mmol/L ABG O2 Saturation (94-97) % Chloride (98-107) mmol/L BUN (7-17) mg/dL Creatinine (0.52-1.04) mg/dL Glucose (74-99) mg/dL POC Glucose (mg/dL) 111 H 143 H 137 H (75-99) mg/dL Calcium (8.4-10.2) mg/dL Phosphorus (2.5-4.5) mg/dL Magnesium (1.6-2.3) mg/dL AST (14-36) U/L ALT (9-52) U/L Alkaline Phosphatase (38-126) U/L Total Protein (6.3-8.2) g/dL Albumin (3.5-5.0) g/dL 03/13/17 Range/Units 19:47 WBC (3.8-10.6) k/uL RBC (3.80-5.40) m/uL Hgb (11.4-16.0) gm/dL Hct (34.0-46.0) % MCV (80.0-100.0) fL MCH (25.0-35.0) pg MCHC (31.0-37.0) g/dL RDW (11.5-15.5) % ABG pH (7.35-7.45) ABG pCO2 (35-45) mmHg ABG pO2 (83-108) mmHg ABG Total CO2 (19-24) mmol/L ABG O2 Saturation (94-97) % Chloride (98-107) mmol/L BUN (7-17) mg/dL Creatinine (0.52-1.04) mg/dL Glucose (74-99) mg/dL POC Glucose (mg/dL) 126 H (75-99) mg/dL Calcium (8.4-10.2) mg/dL Phosphorus (2.5-4.5) mg/dL Magnesium (1.6-2.3) mg/dL AST (14-36) U/L ALT (9-52) U/L Alkaline Phosphatase (38-126) U/L Total Protein (6.3-8.2) g/dL Albumin (3.5-5.0) g/dL Microbiology - Last 24 Hours (Table) 03/11/17 17:53 Gram Stain - Preliminary Sputum Sputum Culture - Preliminary Gram Neg Bacilli Assessment and Plan Plan: The patient blood pressure dropped again and she is currently on Levophed. She has no underlying rhythm and she underwent permanent pacemaker implantation. She is currently on propofol drip as well.
[2017-03-13] MEDS: MORPHINE SULFATE 2 MG/ML SYRINGE IVP PRN (20:30)
[2017-03-13] MEDS: SENNOSIDES-DOCUSATE SODIUM 1 EACH TAB PO SCH (20:33)
[2017-03-13 21:01] LABS: Glucose,Whole Blood 103 mg/dL (75-99)
[2017-03-13 21:57] LABS: Glucose,Whole Blood 109 mg/dL (75-99)
[2017-03-13 23:04] LABS: Glucose,Whole Blood 126 mg/dL (75-99)
[2017-03-14 00:19] LABS: Glucose,Whole Blood 163 mg/dL (75-99)
[2017-03-14] MEDS: PROPOFOL 1,000 MG/100 ML VIAL IV SCH ×2 (00:35→05:16)
[2017-03-14] MEDS ORDERED: DEXTROSE 5% IN WATER 100 ML with AMIODARONE 150 MG IV ONE (01:30)
[2017-03-14 01:36] LABS: Glucose,Whole Blood 146 mg/dL (75-99)
[2017-03-14] MEDS: AMIODARONE 450 MG in DEXTROSE 5% IN WATER 250 ML IV SCH ×6 (01:49→15:24)
[2017-03-14 02:06] LABS: Glucose,Whole Blood 163 mg/dL (75-99)
[2017-03-14 03:01] LABS: Glucose,Whole Blood 144 mg/dL (75-99)
[2017-03-14] MEDS: IPRATROPIUM-ALBUTEROL 3 ML NEB INHALATION SCH ×6 (03:26→23:34)
[2017-03-14 04:28] LABS: Glucose,Whole Blood 119 mg/dL (75-99)
[2017-03-14] MEDS: HEPARIN SODIUM,PORCINE 5,000 UNIT/ML 1 ML VIAL SQ SCH ×3 (04:29→21:17)
[2017-03-14 05:15] LABS: ABG PCO2 34 mmHg (35-45); ABG PH 7.46 (7.35-7.45)
[2017-03-14 05:16] LABS: ABG Base Excess 0.2 mmol/L; ABG HCO3 24 mmol/L (21-25); ABG PO2 82 mmHg (83-108); ABG TCO2 25 mmol/L (19-24)
[2017-03-14] MEDS: prednisoLONE ACETATE 1% OPHTH DROPS 1 ML BTL RIGHT EYE SCH ×3 (05:16→18:44)
[2017-03-14] MEDS: OFLOXACIN 0.3% OPHTH DROPS 5 ML BOTTLE RIGHT EYE SCH ×3 (05:16→18:43)
[2017-03-14 05:41] LABS: Glucose,Whole Blood 102 mg/dL (75-99)
[2017-03-14 05:45] LABS: Anisocytosis Marked; CH 24.9; CHCM 31.9; HCT 27.2 % (34.0-46.0); HDW 3.84; HGB 8.3 gm/dL (11.4-16.0); Hypochromasia Moderate; MCH 23.9 pg (25.0-35.0); MCHC 30.4 g/dL (31.0-37.0); MCV 78.7 fL (80.0-100.0); Microcytosis Marked; Poikilocytosis Slight; RBC 3.46 m/uL (3.80-5.40); RDW 24.6 % (11.5-15.5)
[2017-03-14 05:59] LABS: Calcium 7.5 mg/dL (8.4-10.2); Digoxin 1.1 ng/mL; Magnesium 2.7 mg/dL (1.6-2.3); Phosphorous 4.7 mg/dL (2.5-4.5); Potassium 4.2 mmol/L (3.5-5.1)
[2017-03-14 06:12] LABS: Add Differential Manual Differential
[2017-03-14 06:17] LABS: Glucose,Whole Blood 95 mg/dL (75-99)
[2017-03-14 06:17] LABS: Band Neutrophils % 0.5 %; Manual Review Performed; Nucleated Red Blood Cells 6 /100 WBC (0-0); Polychromasia Present; Total Cells Counted 200; WBC 12.8 k/uL (3.8-10.6)
[2017-03-14 07:02] LABS: Glucose,Whole Blood 132 mg/dL (75-99)
[2017-03-14] MEDS ORDERED: NOREPINEPHRIN 16 MG-0.9%NS PMX 16 MG/250 ML ML IV SCH (07:45)
[2017-03-14] MEDS: CHLORHEXIDINE GLUCONATE 15 ML CUP MUCOUS MEM SCH ×2 (07:48→21:17)
[2017-03-14] MEDS: PANTOPRAZOLE 40 MG/10 ML VIAL IVP SCH (07:48)
[2017-03-14] MEDS: DIGOXIN 250 MCG/ML 2 ML AMP IVP SCH (07:49)
[2017-03-14] MEDS: CLOPIDOGREL 75 MG TAB PO SCH (07:49)
[2017-03-14] MEDS: METOPROLOL TARTRATE 25 MG TAB PO SCH ×2 (07:49→20:59)
[2017-03-14] MEDS: CALCIUM CARB-VIT D 500MG-200UN 1 EACH TAB PO SCH (07:50)
[2017-03-14] MEDS: ASPIRIN 325 MG TAB PO SCH (07:50)
--- NOTE | 2017-03-14 08:11 | XR ---
EXAMINATION TYPE: XR chest 1V portable DATE OF EXAM: 03/14/2017 Comparison: 03/13/2017 Clinical History: 76-year-old female post op cardiac surgery Findings: ET tube tip 2 cm from the tavia. NG tube courses below the diaphragm. Median sternotomy wires are pr esent. Left anterior chest wall pacemaker generator with right atrial and right ventricular leads. Le ft sided basilar chest tube remains in place. No appreciable pneumothorax. Heart remains mildly enlar ged. Mild diffuse interstitial and vascular prominence persists with patchy left basilar opacity. Impression: 1. Continued mild pulmonary vascular congestion. 2. Left basilar chest tube without appreciable pneumothorax. 3. Similar patchy retrocardiac atelectasis.
[2017-03-14 08:16] LABS: Glucose,Whole Blood 154 mg/dL (75-99)
[2017-03-14 09:15] LABS: Glucose,Whole Blood 132 mg/dL (75-99)
[2017-03-14] MEDS: INSULIN REGULAR 100 UNIT in SODIUM CHLORIDE 0.9% 100 ML IV SCH (09:54)
[2017-03-14 10:00] LABS: Glucose,Whole Blood 128 mg/dL (75-99)
--- NOTE | 2017-03-14 10:30 | P.PN ---
Subjective 76-year-old male patient is postop day #4 following aortic valve replacement. Patient also is known to have previous CVA, bronchial asthma, hyperlipidemia, diabetes and hypertension. Surgery was done for bicuspid aortic valve and the patient is status post aortic valve replacement, bioprosthetic valve. Postop, the patient developed some mediastinal bleeding with hypotension. Based on that the patient was taken back to the operating room to control the bleed and during the process the patient was given a total of 4 units of packed RBC, 2 units of fresh frozen plasma one unit of platelets. The patient was kept intubated on mechanical ventilator. As mentioned today's postop day #4 On today's evaluation, the patient remains on a mechanical ventilator. The patient is an assist-control mode of ventilation with a rate of 24, tidal volume 350, FiO2 of 60% and a PEEP of 10. She is intubated with a #8 ET tube. Chest x-ray from today shows adequate expansion of both lungs. Chest tubes are in place. ET tube is in place. She has some mild cardiomegaly. No sinus complaints or pleural effusions. No pneumothorax seen. The blood gases from this morning showed a pH of 7.38 with a pCO2 of 36 and pO2 of 76. Hemodynamically the patient is stable. The patient is producing adequate amount of urine output. The patient is on no pressors. The patient is on no clevidipine drip. Blood pressure is on under good control. The chest tubes are still in place. The patient has a right pleural and left pleural chest tube and 2 mediastinal chest tubes. All of them are showing minimal amount of drainage and the patient would have the mediastinal and the right sided chest tube pulled today. Platelet count improved and it's up to 148. Hemoglobin stable at 8.1. She is sedated with Diprivan. She is calm and comfortable. On 03/09/2017 the patient is still being seen in follow-up. The patient has been quite stable overnight. The patient is on a mechanical ventilator and based on the most is a vent changes she is on a rate of 24, tidal volume 450, FiO2 has been down to 40% and I cut down the PEEP down to 8 and then down to 5 cm of water. The patient's chest x-ray showing cardiomegaly and there is a component of pulmonary vessel congestion. The patient was given 20 mg of IV Lasix this morning. She is producing adequate amount of urine output. The mediastinal and the right pleural chest tube has been removed. The patient has a left pleural chest tube only. No fever. No chills. Tolerating tube feeds. No other significant events overnight. Blood gases from this morning showed a pH of 7.48 with a pCO2 of 29 and a pO2 of 83. Hemoglobin stable at 8.5. On 03/10/2017 the patient is being seen in follow-up. She was taken off sedation this morning and she was very slow in recovering from sedation. Despite being off the sedation for few hours, the patient is still lethargic. She is arousable and she can follow simple commands. She is not fully alert however. She remains on same vent settings overnight which included an assist- control of 24, tidal volume 450, FiO2 of 40% and a PEEP of 5. Blood gases from this morning showed a component of respiratory alkalosis. Chest x-ray shows cardiomegaly with pulmonary vascular congestion and the patient was given 20 mg of IV Lasix earlier by cardiothoracic surgery. Mediastinal and right pleural chest tube has been removed. The patient has a left-sided chest tube in place. Sternum stable clean and intact. No major edema in lower extremities. After being taken off sedation, check weaning parameters and the patient was becoming quite restless even on assist control mode of ventilation. She was becoming tachypneic and her minute ventilation was high. She was able to generate more than 400 mL of tidal volume and a support of 5 and a PEEP of 5. At that point, I made a decision to extubate this patient to a BiPAP at a pressure of 12/5 cm of water and FiO2 of 60%. One hour following extubation, blood gases was done and showed a pH of 7.42 with a pCO2 of 37 and pO2 of 76. She is still lethargic and somewhat sleepy. She is arousable however. She did have some hypertensive reaction for which she was given 5 g of IV Lopressor. She is a bit anxious and she'll be given 1 mg of Ativan. Additional dose of 40 because of Lasix will be given. I am inclined not to reintubate this patient. I'm trying to stabilize her condition to avoid reintubation. Note that she has a restrictive lung disease pH is obese. Her FVC and FEV1 were in the 55% of age preoperatively. Her lung volumes are small on today's chest x-ray. On 03/11/2017 the patient is being seen in follow-up. After being extubated for few hours the patient had to be intubated. Immediately after the intubation she had frothy rest or secretions with orotracheal tube and she was suspected to be in acute pulmonary edema. Based on that the patient with diuresis with IV Lasix and since then her fluid balance has been negative. She has diuresed another 1 L since yesterday. She is sedated on Diprivan and she is calm and comfortable. She is on a mechanical ventilator on assist control mode at the rate of 2, tidal volume 400, FiO2 of 40% and a PEEP of 7. The vent changes were adjusted this morning after I reviewed the blood gases and a chest x-ray. The chest x-ray shows some cardiomegaly and mild four-vessel congestion and a blood gas showed a pH of 7.42 with a pCO2 of 38 and pO2 136. Earlier this morning the patient was also having A dose of hypotension. His systolic blood pressure was dropping in the mid 80s. She was placed on norepinephrine infusion and was running at around 4-5 mics to maintain a mean artery pressure above 65. Cardiac rhythm is atrial fibrillation. She was having episodes of bradycardia and tachycardia. I noted on several occasions that the patient's backup pacemaker was discharging. At the rate is stage became tachycardic. CT surgery was involved and the patient was given digoxin 0.5 mg. She is currently ventricular paced at the rate of 65. The underlying rhythm was asystole. Note that she had gotten her metoprolol earlier this morning. She is back on her tube feeds and currently she is on vital high protein at the rate of 40 mL an hour. In terms of fluid balance, she is on IV D5 water at the rate of 40. Producing somewhere between 75 mL an hour of urine output. Afebrile. The patient is seen again today 03/12/2017 in follow-up in the intensive care unit. She remains intubated and on the mechanical ventilator. Currently in an assist-control mode with a rate of 12, tidal volume 400, FiO2 40 and a PEEP of 5. Morning blood gases reveal a P O2 of 74, pCO2 of 34 and a pH of 7.44. Today 's chest x-ray revealed overall stable findings, there is chronic parenchymal changes and cardiomegaly with patchy left basilar atelectasis. No new infiltrates are seen. She remains on norepinephrine at 3 mcg/m to maintain mean arterial pressure of 65 and greater. She is sedated on propofol at 35 mcg/ kg/m. She is on insulin drip at 5.5 units per hour. Her Vital high-protein tube feeds are currently on hold as the patient has been noticed to be pacemaker dependent and the plan is for insertion of a permanent pacemaker today. On 03/13/2017 the patient is being seen in follow-up in the intensive care unit. She is was sedated and she is calm and comfortable. Noted the patient underwent a pacemaker insertion yesterday for postoperative asystole. The patient postop developed a 50% pneumothorax on the left. A chest tube was inserted in the intensive care unit without any complication today's chest x- ray shows full expansion of the left lung without evidence of any pneumothorax or air leak. Meanwhile, the patient is still on a mechanical ventilator assist control mode with tidal volume 400, FiO2 of 50% and a PEEP of 5. The blood gases showed a pH of 7.5 with a pCO2 of 31 and pO2 of 60. Chest x-ray is showing thyromegaly and pulmonary vessel congestion. Sodium level is at 142. Hemoglobin is at 7.3 which is a gram lower compared to yesterday. A sedation holiday will be done and we'll check again the weaning parameters., Judgment the patient is not ready to wean yet. Oxidation is still borderline and there is not a whole lot of room for potential extubation on today's evaluation. She is tolerating her tube feeds. She is on 50 mics of the prevent. No fever. No chills. Sternum stable clean and intact. On 03/14/2017 the patient is being seen in follow-up in the intensive care units. She is calm and comfortable. She was given a sedation holiday and she woke up very appropriately today. She is following commands. She is still intubated on a mechanical ventilator. She is an assist-control mode at the rate of 12, FiO2 of 50%, tidal volume 400 and a PEEP of 5. Chest x-ray showing cardiomegaly, there is a left-sided chest tube in place without evidence of pneumothorax, ET tube is in a good location there is some mild pulmonary vascular congestion. The patient is on no pressors. Overnight she went into each of fibrillation with rapid ventricular response. She was placed on amiodarone drip. Note that she has a pacemaker in place as the patient went into complete asystole post AVR. She is producing adequate amount of urine output. Renal function is stable. There is Klebsiella growing in her sputum and based on that the patient be started on IV antibiotics. She is afebrile for now. No leukocytosis. Hemoglobin today is at 8.3. Objective - Vital Signs Vital signs: Vital Signs Temp 97.7 F 03/14/17 08:00 Pulse 50 L 03/14/17 09:00 Resp 30 H 03/14/17 09:00 BP 105/48 03/14/17 09:00 Pulse Ox 97 03/14/17 09:00 Intake & Output 03/13/17 03/14/17 03/14/17 18:59 06:59 18:59 Intake Total 1110.724 2516.107 487.059 Output Total 1130 940 225 Balance -37.565 397.107 262.059 Weight 89.2 kg Intake: IV 318 250 66 Dextrose 5% in Water 1, 160 000 ml @ 40 mls/hr IV . Q24H [facility] Rx#:[id number] Sodium Chloride 0.9% 1, 140 220 60 000 ml @ 20 mls/hr IV . Q24H [facility] Rx#:[id number] pressure bag 18 30 6 Intake, IV Titration 144.435 387.107 301.059 Amount Amiodarone 450 mg In 239.421 Dextrose 5% in Water 250 ml @ 1 MG/MIN 33.33 mls/ hr IV .Q7H31M [facility] Rx#: [id number] Insulin Regular 100 unit 77.891 53.060 18.419 In Sodium Chloride 0.9% 100 ml @ Per Protocol IV .Q0M [facility] Rx#:[id number] Norepinephrin 4 mg-0.9% 14.25 175.438 Ns Pmx 4 mg In 250 ml @ Titrate IV .Q0M [facility] Rx#: [id number] Propofol 1,000 mg In 100 52.294 158.609 43.219 ml @ Titrate IV .Q0M [facility] Rx#:[id number] Tube Feeding 480 520 120 Other 150 180 Output: Chest Tube Drainage 80 50 Chest Tube Left Lateral 80 50 Chest Drainage 5 Left Chest 5 Urine 1045 940 175 Other: Voiding Method Indwelling Catheter Indwelling Catheter Indwelling Catheter # Bowel Movements 0 ABP, PAP, CO, CI - Last Documented Arterial Blood Pressure 141/50 Pulmonary Artery Pressure 43/32 Cardiac Output 3.9 Cardiac Index 2.3 - Exam Awake and alert and following some simple commands. She is moving all 4 extremities without any limitation. comfortable intubated on a mechanical ventilator and orogastric and orotracheal tube are both in place..Head exam was generally normal. There was no scleral icterus or corneal arcus. Mucous membranes were moist. Neck is short and supple and the patient has significant crowding of the posterior oropharynx. 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 Lungs sounds are diminished bilaterally along with some bibasilar crackles.the patient has a left-sided chest tube without evidence of any air leak. There is also a pacemaker pocket over the left anterior chest area. Cardiac exam revealed the PMI to be normally situated and sized. The rhythm was regular and no extrasystoles were noted during several minutes of auscultation. The first and second heart sounds were normal and physiologic splitting of the second heart sound was noted. The rhythm is paced . . There were no murmurs, rubs, clicks, or gallops.Abdominal exam revealed normal bowel sounds. The abdomen was soft, non-tender, and without masses, organomegaly, or appreciable enlargement of the abdominal aorta. Extremities show trace edema and there is no cyanosis or clubbing at this point. Neurologically the patient is sedated. She has however arousable and she would withdraw no for extremities without any major difficulties. - Labs CBC & Chem 7: 03/14/17 05:30 03/14/17 05:30 Labs: Abnormal Lab Results - Last 24 Hours (Table) 03/13/17 03/13/17 03/13/17 Range/Units 10:57 12:08 13:04 WBC (3.8-10.6) k/uL RBC (3.80-5.40) m/uL Hgb (11.4-16.0) gm/dL Hct (34.0-46.0) % MCV (80.0-100.0) fL MCH (25.0-35.0) pg MCHC (31.0-37.0) g/dL RDW (11.5-15.5) % Neutrophils # (Manual) (1.3-7.7) k/uL Nucleated RBCs (0-0) /100 WBC ABG pH (7.35-7.45) ABG pCO2 (35-45) mmHg ABG pO2 (83-108) mmHg ABG Total CO2 (19-24) mmol/L Chloride (98-107) mmol/L BUN (7-17) mg/dL Creatinine (0.52-1.04) mg/dL POC Glucose (mg/dL) 128 H 111 H 131 H (75-99) mg/dL Calcium (8.4-10.2) mg/dL Phosphorus (2.5-4.5) mg/dL Magnesium (1.6-2.3) mg/dL 03/13/17 03/13/17 03/13/17 Range/Units 14:01 15:31 16:27 WBC (3.8-10.6) k/uL RBC (3.80-5.40) m/uL Hgb (11.4-16.0) gm/dL Hct (34.0-46.0) % MCV (80.0-100.0) fL MCH (25.0-35.0) pg MCHC (31.0-37.0) g/dL RDW (11.5-15.5) % Neutrophils # (Manual) (1.3-7.7) k/uL Nucleated RBCs (0-0) /100 WBC ABG pH (7.35-7.45) ABG pCO2 (35-45) mmHg ABG pO2 (83-108) mmHg ABG Total CO2 (19-24) mmol/L Chloride (98-107) mmol/L BUN (7-17) mg/dL Creatinine (0.52-1.04) mg/dL POC Glucose (mg/dL) 129 H 115 H 115 H (75-99) mg/dL Calcium (8.4-10.2) mg/dL Phosphorus (2.5-4.5) mg/dL Magnesium (1.6-2.3) mg/dL 03/13/17 03/13/17 03/13/17 Range/Units 17:14 18:03 18:52 WBC (3.8-10.6) k/uL RBC (3.80-5.40) m/uL Hgb (11.4-16.0) gm/dL Hct (34.0-46.0) % MCV (80.0-100.0) fL MCH (25.0-35.0) pg MCHC (31.0-37.0) g/dL RDW (11.5-15.5) % Neutrophils # (Manual) (1.3-7.7) k/uL Nucleated RBCs (0-0) /100 WBC ABG pH (7.35-7.45) ABG pCO2 (35-45) mmHg ABG pO2 (83-108) mmHg ABG Total CO2 (19-24) mmol/L Chloride (98-107) mmol/L BUN (7-17) mg/dL Creatinine (0.52-1.04) mg/dL POC Glucose (mg/dL) 111 H 143 H 137 H (75-99) mg/dL Calcium (8.4-10.2) mg/dL Phosphorus (2.5-4.5) mg/dL Magnesium (1.6-2.3) mg/dL 03/13/17 03/13/17 03/13/17 Range/Units 19:47 20:59 21:55 WBC (3.8-10.6) k/uL RBC (3.80-5.40) m/uL Hgb (11.4-16.0) gm/dL Hct (34.0-46.0) % MCV (80.0-100.0) fL MCH (25.0-35.0) pg MCHC (31.0-37.0) g/dL RDW (11.5-15.5) % Neutrophils # (Manual) (1.3-7.7) k/uL Nucleated RBCs (0-0) /100 WBC ABG pH (7.35-7.45) ABG pCO2 (35-45) mmHg ABG pO2 (83-108) mmHg ABG Total CO2 (19-24) mmol/L Chloride (98-107) mmol/L BUN (7-17) mg/dL Creatinine (0.52-1.04) mg/dL POC Glucose (mg/dL) 126 H 103 H 109 H (75-99) mg/dL Calcium (8.4-10.2) mg/dL Phosphorus (2.5-4.5) mg/dL Magnesium (1.6-2.3) mg/dL 03/13/17 03/14/17 03/14/17 Range/Units 23:03 00:18 01:35 WBC (3.8-10.6) k/uL RBC (3.80-5.40) m/uL Hgb (11.4-16.0) gm/dL Hct (34.0-46.0) % MCV (80.0-100.0) fL MCH (25.0-35.0) pg MCHC (31.0-37.0) g/dL RDW (11.5-15.5) % Neutrophils # (Manual) (1.3-7.7) k/uL Nucleated RBCs (0-0) /100 WBC ABG pH (7.35-7.45) ABG pCO2 (35-45) mmHg ABG pO2 (83-108) mmHg ABG Total CO2 (19-24) mmol/L Chloride (98-107) mmol/L BUN (7-17) mg/dL Creatinine (0.52-1.04) mg/dL POC Glucose (mg/dL) 126 H 163 H 146 H (75-99) mg/dL Calcium (8.4-10.2) mg/dL Phosphorus (2.5-4.5) mg/dL Magnesium (1.6-2.3) mg/dL 03/14/17 03/14/17 03/14/17 Range/Units 02:04 02:59 04:27 WBC (3.8-10.6) k/uL RBC (3.80-5.40) m/uL Hgb (11.4-16.0) gm/dL Hct (34.0-46.0) % MCV (80.0-100.0) fL MCH (25.0-35.0) pg MCHC (31.0-37.0) g/dL RDW (11.5-15.5) % Neutrophils # (Manual) (1.3-7.7) k/uL Nucleated RBCs (0-0) /100 WBC ABG pH (7.35-7.45) ABG pCO2 (35-45) mmHg ABG pO2 (83-108) mmHg ABG Total CO2 (19-24) mmol/L Chloride (98-107) mmol/L BUN (7-17) mg/dL Creatinine (0.52-1.04) mg/dL POC Glucose (mg/dL) 163 H 144 H 119 H (75-99) mg/dL Calcium (8.4-10.2) mg/dL Phosphorus (2.5-4.5) mg/dL Magnesium (1.6-2.3) mg/dL 03/14/17 03/14/17 03/14/17 Range/Units 04:32 05:30 05:30 WBC 12.8 H (3.8-10.6) k/uL RBC 3.46 L (3.80-5.40) m/uL Hgb 8.3 L (11.4-16.0) gm/dL Hct 27.2 L (34.0-46.0) % MCV 78.7 L (80.0-100.0) fL MCH 23.9 L (25.0-35.0) pg MCHC 30.4 L (31.0-37.0) g/dL RDW 24.6 H (11.5-15.5) % Neutrophils # (Manual) 9.66 H (1.3-7.7) k/uL Nucleated RBCs 6 H (0-0) /100 WBC ABG pH 7.46 H (7.35-7.45) ABG pCO2 34 L (35-45) mmHg ABG pO2 82 L (83-108) mmHg ABG Total CO2 25 H (19-24) mmol/L Chloride 110 H (98-107) mmol/L BUN 69 H (7-17) mg/dL Creatinine 1.10 H (0.52-1.04) mg/dL POC Glucose (mg/dL) (75-99) mg/dL Calcium 7.5 L (8.4-10.2) mg/dL Phosphorus 4.7 H (2.5-4.5) mg/dL Magnesium 2.7 H (1.6-2.3) mg/dL 03/14/17 03/14/17 03/14/17 Range/Units 05:39 07:00 08:14 WBC (3.8-10.6) k/uL RBC (3.80-5.40) m/uL Hgb (11.4-16.0) gm/dL Hct (34.0-46.0) % MCV (80.0-100.0) fL MCH (25.0-35.0) pg MCHC (31.0-37.0) g/dL RDW (11.5-15.5) % Neutrophils # (Manual) (1.3-7.7) k/uL Nucleated RBCs (0-0) /100 WBC ABG pH (7.35-7.45) ABG pCO2 (35-45) mmHg ABG pO2 (83-108) mmHg ABG Total CO2 (19-24) mmol/L Chloride (98-107) mmol/L BUN (7-17) mg/dL Creatinine (0.52-1.04) mg/dL POC Glucose (mg/dL) 102 H 132 H 154 H (75-99) mg/dL Calcium (8.4-10.2) mg/dL Phosphorus (2.5-4.5) mg/dL Magnesium (1.6-2.3) mg/dL 03/14/17 03/14/17 Range/Units 09:13 09:58 WBC (3.8-10.6) k/uL RBC (3.80-5.40) m/uL Hgb (11.4-16.0) gm/dL Hct (34.0-46.0) % MCV (80.0-100.0) fL MCH (25.0-35.0) pg MCHC (31.0-37.0) g/dL RDW (11.5-15.5) % Neutrophils # (Manual) (1.3-7.7) k/uL Nucleated RBCs (0-0) /100 WBC ABG pH (7.35-7.45) ABG pCO2 (35-45) mmHg ABG pO2 (83-108) mmHg ABG Total CO2 (19-24) mmol/L Chloride (98-107) mmol/L BUN (7-17) mg/dL Creatinine (0.52-1.04) mg/dL POC Glucose (mg/dL) 132 H 128 H (75-99) mg/dL Calcium (8.4-10.2) mg/dL Phosphorus (2.5-4.5) mg/dL Magnesium (1.6-2.3) mg/dL Microbiology - Last 24 Hours (Table) 03/11/17 17:53 Gram Stain - Final Sputum Sputum Culture - Final Klebsiella oxytoca Assessment and Plan Plan: Assessment 1 aortic valve replacement for severe bicuspid aortic valve stenosis, patient is postop day #9 2 postoperative mediastinal bleeding, recovered 3 postoperative cardiac arrhythmia, asystole, status post insertion of a pacemaker. Overnight the patient went into atrial fibrillation with rapid ventricular response. The patient was placed on amiodarone drip. Current rhythm is again paced at the rate of 65-70. 4 acute hypoxic respiratory failure, expected outcome of surgery. The patient failed a trial of extubation approximately 3 days ago. Subsequently, there were no weaning trials done as the patient was considered to be on stable for weaning. This morning, the patient is much more awake and stabilized and hemodynamically she is doing well. Chest x-ray was reviewed. Blood gases was reviewed. We'll proceed with this point is breathing trial if the weaning parameters are acceptable. 5 iatrogenic left-sided pneumothorax status post chest tube insertion with successful expansion of the left lung without evidence of any air leak. 6 hypertension, history of 7 CVA/TIA, history of 8 bronchial asthma, history of 9 obesity 10 restrictive lung physiology on preop spirometry with an FEV1 of 56% of predicted. 11 thrombocytopenia, recovered 12 postoperative anemia, expected, hemoglobin is at 8.3 Plan We'll keep the patient off sedation. Weaning parameters will be checked. Proceed with this point is breathing trial if the patient's weaning parameters are appropriate. She is awake and alert. She is following commands. Hemodynamically she had a bout of atrial fibrillation yesterday which got treated with amiodarone and currently her rhythm is paced. She has a left- sided chest tube in place with minimal amount of output and the pneumothorax has recovered. She was tolerating the enteral nutrition and currently the feedings on hold pending further weaning trials. The patient's renal function is stable. Hemoglobin stable. Sternal wound is stable. We'll continue to follow make further recommendations based on her progress. Critically care evaluation done more than 30 min Time with Patient: Greater than 30
[2017-03-14] MEDS: CYANOCOBALAMIN 500 MCG TAB PO SCH (11:47)
[2017-03-14] MEDS: LISINOPRIL 5 MG TAB PO SCH (11:48)
[2017-03-14] MEDS: SODIUM CHLORIDE 0.9% 1,000 ML IV SCH (13:01)
[2017-03-14] MEDS: CLEVIDIPINE BUTYRATE 25 MG in EMPTY BAG 1 BAG IV SCH (13:01)
[2017-03-14 13:04] LABS: Glucose,Whole Blood 62 mg/dL (75-99)
[2017-03-14 13:14] LABS: Glucose,Whole Blood 86 mg/dL (75-99)
--- NOTE | 2017-03-14 13:52 | P.PN ---
Subjective Principal diagnosis: Status post aVR This is a pleasant 76-year-old female patient who sees Dr. STELLA Lazaro as an outpatient who was diagnosed recently with symptomatic severe aortic stenosis secondary to bicuspid aortic valve. The patient underwent aVR using a bioprosthetic aortic valve. The patient continues to be intubated on ventilator. The plan is to try to wean her tomorrow. Hemodynamically she is not on any vasopressors at this point. She went into an A. fib with RVR yesterday and she was started on amiodarone with bolus and drip and currently she has paced rhythm. Objective - Vital Signs Vital signs: Vital Signs Temp 98.2 F 03/14/17 12:00 Pulse 69 03/14/17 13:00 Resp 16 03/14/17 13:00 BP 105/48 03/14/17 10:00 Pulse Ox 92 L 03/14/17 13:00 Intake & Output 03/13/17 03/14/17 03/14/17 18:59 06:59 18:59 Intake Total 5360.887 2389.107 920.003 Output Total 1130 940 530 Balance -37.565 397.107 390.003 Weight 89.2 kg Intake: IV 318 250 158 Dextrose 5% in Water 1, 160 000 ml @ 40 mls/hr IV . Q24H [facility] Rx#:[id number] Sodium Chloride 0.9% 1, 140 220 140 000 ml @ 20 mls/hr IV . Q24H [facility] Rx#:[id number] pressure bag 18 30 18 Intake, IV Titration 144.435 387.107 322.003 Amount Amiodarone 450 mg In 239.421 Dextrose 5% in Water 250 ml @ 1 MG/MIN 33.33 mls/ hr IV .Q7H31M [facility] Rx#: [id number] Insulin Regular 100 unit 77.891 53.060 39.363 In Sodium Chloride 0.9% 100 ml @ Per Protocol IV .Q0M [facility] Rx#:[id number] Norepinephrin 4 mg-0.9% 14.25 175.438 Ns Pmx 4 mg In 250 ml @ Titrate IV .Q0M [facility] Rx#: [id number] Propofol 1,000 mg In 100 52.294 158.609 43.219 ml @ Titrate IV .Q0M [facility] Rx#:[id number] Tube Feeding 480 520 440 Other 150 180 Output: Chest Tube Drainage 80 80 Chest Tube Left Lateral 80 80 Chest Drainage 5 Left Chest 5 Urine 1045 940 450 Other: Voiding Method Indwelling Catheter Indwelling Catheter Indwelling Catheter # Bowel Movements 0 ABP, PAP, CO, CI - Last Documented Arterial Blood Pressure 123/47 Pulmonary Artery Pressure 43/32 Cardiac Output 3.9 Cardiac Index 2.3 - Constitutional General appearance: Present: no acute distress - Cardiovascular Rhythm: regular - Labs CBC & Chem 7: 03/14/17 05:30 03/14/17 05:30 Labs: Abnormal Lab Results - Last 24 Hours (Table) 03/13/17 03/13/17 03/13/17 Range/Units 14:01 15:31 16:27 WBC (3.8-10.6) k/uL RBC (3.80-5.40) m/uL Hgb (11.4-16.0) gm/dL Hct (34.0-46.0) % MCV (80.0-100.0) fL MCH (25.0-35.0) pg MCHC (31.0-37.0) g/dL RDW (11.5-15.5) % Neutrophils # (Manual) (1.3-7.7) k/uL Nucleated RBCs (0-0) /100 WBC ABG pH (7.35-7.45) ABG pCO2 (35-45) mmHg ABG pO2 (83-108) mmHg ABG Total CO2 (19-24) mmol/L Chloride (98-107) mmol/L BUN (7-17) mg/dL Creatinine (0.52-1.04) mg/dL POC Glucose (mg/dL) 129 H 115 H 115 H (75-99) mg/dL Calcium (8.4-10.2) mg/dL Phosphorus (2.5-4.5) mg/dL Magnesium (1.6-2.3) mg/dL 03/13/17 03/13/17 03/13/17 Range/Units 17:14 18:03 18:52 WBC (3.8-10.6) k/uL RBC (3.80-5.40) m/uL Hgb (11.4-16.0) gm/dL Hct (34.0-46.0) % MCV (80.0-100.0) fL MCH (25.0-35.0) pg MCHC (31.0-37.0) g/dL RDW (11.5-15.5) % Neutrophils # (Manual) (1.3-7.7) k/uL Nucleated RBCs (0-0) /100 WBC ABG pH (7.35-7.45) ABG pCO2 (35-45) mmHg ABG pO2 (83-108) mmHg ABG Total CO2 (19-24) mmol/L Chloride (98-107) mmol/L BUN (7-17) mg/dL Creatinine (0.52-1.04) mg/dL POC Glucose (mg/dL) 111 H 143 H 137 H (75-99) mg/dL Calcium (8.4-10.2) mg/dL Phosphorus (2.5-4.5) mg/dL Magnesium (1.6-2.3) mg/dL 03/13/17 03/13/17 03/13/17 Range/Units 19:47 20:59 21:55 WBC (3.8-10.6) k/uL RBC (3.80-5.40) m/uL Hgb (11.4-16.0) gm/dL Hct (34.0-46.0) % MCV (80.0-100.0) fL MCH (25.0-35.0) pg MCHC (31.0-37.0) g/dL RDW (11.5-15.5) % Neutrophils # (Manual) (1.3-7.7) k/uL Nucleated RBCs (0-0) /100 WBC ABG pH (7.35-7.45) ABG pCO2 (35-45) mmHg ABG pO2 (83-108) mmHg ABG Total CO2 (19-24) mmol/L Chloride (98-107) mmol/L BUN (7-17) mg/dL Creatinine (0.52-1.04) mg/dL POC Glucose (mg/dL) 126 H 103 H 109 H (75-99) mg/dL Calcium (8.4-10.2) mg/dL Phosphorus (2.5-4.5) mg/dL Magnesium (1.6-2.3) mg/dL 03/13/17 03/14/1717 Range/Units 23:03 00:18 01:35 WBC (3.8-10.6) k/uL RBC (3.80-5.40) m/uL Hgb (11.4-16.0) gm/dL Hct (34.0-46.0) % MCV (80.0-100.0) fL MCH (25.0-35.0) pg MCHC (31.0-37.0) g/dL RDW (11.5-15.5) % Neutrophils # (Manual) (1.3-7.7) k/uL Nucleated RBCs (0-0) /100 WBC ABG pH (7.35-7.45) ABG pCO2 (35-45) mmHg ABG pO2 (83-108) mmHg ABG Total CO2 (19-24) mmol/L Chloride (98-107) mmol/L BUN (7-17) mg/dL Creatinine (0.52-1.04) mg/dL POC Glucose (mg/dL) 126 H 163 H 146 H (75-99) mg/dL Calcium (8.4-10.2) mg/dL Phosphorus (2.5-4.5) mg/dL Magnesium (1.6-2.3) mg/dL 03/14/17 03/14/17 03/14/17 Range/Units 02:04 02:59 04:27 WBC (3.8-10.6) k/uL RBC (3.80-5.40) m/uL Hgb (11.4-16.0) gm/dL Hct (34.0-46.0) % MCV (80.0-100.0) fL MCH (25.0-35.0) pg MCHC (31.0-37.0) g/dL RDW (11.5-15.5) % Neutrophils # (Manual) (1.3-7.7) k/uL Nucleated RBCs (0-0) /100 WBC ABG pH (7.35-7.45) ABG pCO2 (35-45) mmHg ABG pO2 (83-108) mmHg ABG Total CO2 (19-24) mmol/L Chloride (98-107) mmol/L BUN (7-17) mg/dL Creatinine (0.52-1.04) mg/dL POC Glucose (mg/dL) 163 H 144 H 119 H (75-99) mg/dL Calcium (8.4-10.2) mg/dL Phosphorus (2.5-4.5) mg/dL Magnesium (1.6-2.3) mg/dL 03/14/17 03/14/17 03/14/17 Range/Units 04:32 05:30 05:30 WBC 12.8 H (3.8-10.6) k/uL RBC 3.46 L (3.80-5.40) m/uL Hgb 8.3 L (11.4-16.0) gm/dL Hct 27.2 L (34.0-46.0) % MCV 78.7 L (80.0-100.0) fL MCH 23.9 L (25.0-35.0) pg MCHC 30.4 L (31.0-37.0) g/dL RDW 24.6 H (11.5-15.5) % Neutrophils # (Manual) 9.66 H (1.3-7.7) k/uL Nucleated RBCs 6 H (0-0) /100 WBC ABG pH 7.46 H (7.35-7.45) ABG pCO2 34 L (35-45) mmHg ABG pO2 82 L (83-108) mmHg ABG Total CO2 25 H (19-24) mmol/L Chloride 110 H (98-107) mmol/L BUN 69 H (7-17) mg/dL Creatinine 1.10 H (0.52-1.04) mg/dL POC Glucose (mg/dL) (75-99) mg/dL Calcium 7.5 L (8.4-10.2) mg/dL Phosphorus 4.7 H (2.5-4.5) mg/dL Magnesium 2.7 H (1.6-2.3) mg/dL 03/14/17 03/14/17 03/14/17 Range/Units 05:39 07:00 08:14 WBC (3.8-10.6) k/uL RBC (3.80-5.40) m/uL Hgb (11.4-16.0) gm/dL Hct (34.0-46.0) % MCV (80.0-100.0) fL MCH (25.0-35.0) pg MCHC (31.0-37.0) g/dL RDW (11.5-15.5) % Neutrophils # (Manual) (1.3-7.7) k/uL Nucleated RBCs (0-0) /100 WBC ABG pH (7.35-7.45) ABG pCO2 (35-45) mmHg ABG pO2 (83-108) mmHg ABG Total CO2 (19-24) mmol/L Chloride (98-107) mmol/L BUN (7-17) mg/dL Creatinine (0.52-1.04) mg/dL POC Glucose (mg/dL) 102 H 132 H 154 H (75-99) mg/dL Calcium (8.4-10.2) mg/dL Phosphorus (2.5-4.5) mg/dL Magnesium (1.6-2.3) mg/dL 03/14/17 03/14/17 03/14/17 Range/Units 09:13 09:58 12:43 WBC (3.8-10.6) k/uL RBC (3.80-5.40) m/uL Hgb (11.4-16.0) gm/dL Hct (34.0-46.0) % MCV (80.0-100.0) fL MCH (25.0-35.0) pg MCHC (31.0-37.0) g/dL RDW (11.5-15.5) % Neutrophils # (Manual) (1.3-7.7) k/uL Nucleated RBCs (0-0) /100 WBC ABG pH (7.35-7.45) ABG pCO2 (35-45) mmHg ABG pO2 (83-108) mmHg ABG Total CO2 (19-24) mmol/L Chloride (98-107) mmol/L BUN (7-17) mg/dL Creatinine (0.52-1.04) mg/dL POC Glucose (mg/dL) 132 H 128 H 62 L (75-99) mg/dL Calcium (8.4-10.2) mg/dL Phosphorus (2.5-4.5) mg/dL Magnesium (1.6-2.3) mg/dL Microbiology - Last 24 Hours (Table) 08/10/17 17:53 Gram Stain - Final Sputum Sputum Culture - Final Klebsiella oxytoca Assessment and Plan Plan: The patient blood pressure dropped again and she is currently on Levophed. She has no underlying rhythm and she underwent permanent pacemaker implantation. We will switch the patient to amiodarone by mouth. Continue the metoprolol as well as dual antiplatelet therapy.
--- NOTE | 2017-03-14 13:58 | P.PN ---
Subjective Principal diagnosis: Critical aortic stenosis with bicuspid valve and aortic insufficiency, congestive heart failure, CVA/TIA, diabetes mellitus type 2, hyperlipidemia, hypertension, osteoarthritis, coronary artery disease, preoperative paroxysmal atrial fibrillation, neuropathy, pericarditis, scoliosis and history of brain concussion. POD #10, elective aortic valve replacement with a 25 mm Magna-Ease bioprosthetic aortic valve, a clip ligation into the left atrial appendage with a #35 mm Atriclip and intraoperative transesophageal echocardiogram. POD #10, emergent evacuation of clots, chest exploration and control of bleeding. Acute postoperative blood loss anemia, and expected outcome of surgery. Postoperative hypoxic respiratory failure requiring prolonged mechanical ventilation, a potential expected outcome of surgery. POD #8 placement of right pleural chest tube for pleural effusion. Postoperative hypovolemic shock, inherent to the surgery Postoperative paroxysmal atrial fibrillation, and expected outcome of surgery. POD #2 dual-chamber pacemaker insertion transvenous under fluoroscopic vision, placed for cardiac rhythm consistent with sick sinus syndrome. POD #2 placement of left pleural chest tube by Dr. Soler for a left pneumothorax. Patient remains intubated on mechanical ventilator support and her sedation is currently on hold. She is following verbal commands appropriately and moving all 4 extremities appropriately. No acute distress. She is currently ventricular paced heart rate 70. Objective - Vital Signs Vital signs: Vital Signs Temp 98.2 F 03/14/17 12:00 Pulse 69 03/14/17 13:00 Resp 16 03/14/17 13:00 BP 105/48 03/14/17 10:00 Pulse Ox 92 L 03/14/17 13:00 Intake & Output 03/13/17 03/14/17 03/14/17 18:59 06:59 18:59 Intake Total 4513.943 5434.107 920.003 Output Total 1130 940 530 Balance -37.565 397.107 390.003 Weight 89.2 kg Intake: IV 318 250 158 Dextrose 5% in Water 1, 160 000 ml @ 40 mls/hr IV . Q24H [facility] Rx#:[id number] Sodium Chloride 0.9% 1, 140 220 140 000 ml @ 20 mls/hr IV . Q24H [facility] Rx#:[id number] pressure bag 18 30 18 Intake, IV Titration 144.435 387.107 322.003 Amount Amiodarone 450 mg In 239.421 Dextrose 5% in Water 250 ml @ 1 MG/MIN 33.33 mls/ hr IV .Q7H31M [facility] Rx#: [id number] Insulin Regular 100 unit 77.891 53.060 39.363 In Sodium Chloride 0.9% 100 ml @ Per Protocol IV .Q0M [facility] Rx#:[id number] Norepinephrin 4 mg-0.9% 14.25 175.438 Ns Pmx 4 mg In 250 ml @ Titrate IV .Q0M [facility] Rx#: [id number] Propofol 1,000 mg In 100 52.294 158.609 43.219 ml @ Titrate IV .Q0M [facility] Rx#:[id number] Tube Feeding 480 520 440 Other 150 180 Output: Chest Tube Drainage 80 80 Chest Tube Left Lateral 80 80 Chest Drainage 5 Left Chest 5 Urine 1045 940 450 Other: Voiding Method Indwelling Catheter Indwelling Catheter Indwelling Catheter # Bowel Movements 0 ABP, PAP, CO, CI - Last Documented Arterial Blood Pressure 123/47 Pulmonary Artery Pressure 43/32 Cardiac Output 3.9 Cardiac Index 2.3 - Exam Remains intubated with mechanical ventilator support, her sedation is currently on hold. She is following simple verbal commands appropriately, generalized weakness to her bilateral upper extremities. - Constitutional General appearance: Present: no acute distress - EENT Eyes: Present: PERRLA ENT: Present: hearing grossly normal - Neck Details: No JVD present - Respiratory Details: Scattered rhonchi throughout, cd technician bilateral bases. Respirations are symmetrical and unlabored with mechanical ventilator support. Her current ventilator settings are as follows: AC 14, TV 400, FiO2 50%, PEEP of 5. Her oxygen saturation are 97% with mechanical ventilator support. Her left pleural chest tube remained intact without air leak. Remains to low continuous wall suction -20 cm H2O. Draining thin serosanguineous drainage. 110 mL output in the last 24 hours. - Cardiovascular Details: Regular rhythm and rate, S1 and S2, negative for S3, gallop or murmur. Sternum is stable. Left brachial PICC line present and patent. Generalized +2 edema. Knee-high CHAVA hose and sequential compression devices in place to her bilateral lower extremities. Heart hugger in place. Permanent pacemaker to her left upper chest. Bedside telemetry showing ventricular paced rhythm heart rate 70. Patient did have an episode of atrial fibrillation last p.m. which was self- limiting. - Gastrointestinal Gastrointestinal Comment(s): Abdomen is soft, nontender, and distended. Positive bowel movement. OG tube with vital high-protein infusing at goal rate of 40 mL per hour with automatic water flushes at 60 mL every 4 hours. Positive bowel sounds to all 4 abdominal quadrants. - Genitourinary Genitourinary Comment(s): Clear yellow urine, adequate output. Cuellar catheter for accurate I&O. - Integumentary Integumentary Comment(s): Stage I erythremia to her left buttock. Midline sternal incision clean dry and well approximated. Dressing is clean, dry and intact. Left infraclavicular incision clean dry and well approximated. No drainage noted. - Musculoskeletal Musculoskeletal: Present: generalized weakness - Allied health notes Allied health notes reviewed: nursing - Labs CBC & Chem 7: 03/14/17 05:30 03/14/17 05:30 Labs: Abnormal Lab Results - Last 24 Hours (Table) 03/13/17 03/13/17 03/13/17 Range/Units 14:01 15:31 16:27 WBC (3.8-10.6) k/uL RBC (3.80-5.40) m/uL Hgb (11.4-16.0) gm/dL Hct (34.0-46.0) % MCV (80.0-100.0) fL MCH (25.0-35.0) pg MCHC (31.0-37.0) g/dL RDW (11.5-15.5) % Neutrophils # (Manual) (1.3-7.7) k/uL Nucleated RBCs (0-0) /100 WBC ABG pH (7.35-7.45) ABG pCO2 (35-45) mmHg ABG pO2 (83-108) mmHg ABG Total CO2 (19-24) mmol/L Chloride (98-107) mmol/L BUN (7-17) mg/dL Creatinine (0.52-1.04) mg/dL POC Glucose (mg/dL) 129 H 115 H 115 H (75-99) mg/dL Calcium (8.4-10.2) mg/dL Phosphorus (2.5-4.5) mg/dL Magnesium (1.6-2.3) mg/dL 0803/13/17 03/13/17 Range/Units 17:14 18:03 18:52 WBC (3.8-10.6) k/uL RBC (3.80-5.40) m/uL Hgb (11.4-16.0) gm/dL Hct (34.0-46.0) % MCV (80.0-100.0) fL MCH (25.0-35.0) pg MCHC (31.0-37.0) g/dL RDW (11.5-15.5) % Neutrophils # (Manual) (1.3-7.7) k/uL Nucleated RBCs (0-0) /100 WBC ABG pH (7.35-7.45) ABG pCO2 (35-45) mmHg ABG pO2 (83-108) mmHg ABG Total CO2 (19-24) mmol/L Chloride (98-107) mmol/L BUN (7-17) mg/dL Creatinine (0.52-1.04) mg/dL POC Glucose (mg/dL) 111 H 143 H 137 H (75-99) mg/dL Calcium (8.4-10.2) mg/dL Phosphorus (2.5-4.5) mg/dL Magnesium (1.6-2.3) mg/dL 03/13/17 03/13/17 03/13/17 Range/Units 19:47 20:59 21:55 WBC (3.8-10.6) k/uL RBC (3.80-5.40) m/uL Hgb (11.4-16.0) gm/dL Hct (34.0-46.0) % MCV (80.0-100.0) fL MCH (25.0-35.0) pg MCHC (31.0-37.0) g/dL RDW (11.5-15.5) % Neutrophils # (Manual) (1.3-7.7) k/uL Nucleated RBCs (0-0) /100 WBC ABG pH (7.35-7.45) ABG pCO2 (35-45) mmHg ABG pO2 (83-108) mmHg ABG Total CO2 (19-24) mmol/L Chloride (98-107) mmol/L BUN (7-17) mg/dL Creatinine (0.52-1.04) mg/dL POC Glucose (mg/dL) 126 H 103 H 109 H (75-99) mg/dL Calcium (8.4-10.2) mg/dL Phosphorus (2.5-4.5) mg/dL Magnesium (1.6-2.3) mg/dL 03/13/17 03/14/17 03/14/17 Range/Units 23:03 00:18 01:35 WBC (3.8-10.6) k/uL RBC (3.80-5.40) m/uL Hgb (11.4-16.0) gm/dL Hct (34.0-46.0) % MCV (80.0-100.0) fL MCH (25.0-35.0) pg MCHC (31.0-37.0) g/dL RDW (11.5-15.5) % Neutrophils # (Manual) (1.3-7.7) k/uL Nucleated RBCs (0-0) /100 WBC ABG pH (7.35-7.45) ABG pCO2 (35-45) mmHg ABG pO2 (83-108) mmHg ABG Total CO2 (19-24) mmol/L Chloride (98-107) mmol/L BUN (7-17) mg/dL Creatinine (0.52-1.04) mg/dL POC Glucose (mg/dL) 126 H 163 H 146 H (75-99) mg/dL Calcium (8.4-10.2) mg/dL Phosphorus (2.5-4.5) mg/dL Magnesium (1.6-2.3) mg/dL 03/14/17 03/14/17 03/14/17 Range/Units 02:04 02:59 04:27 WBC (3.8-10.6) k/uL RBC (3.80-5.40) m/uL Hgb (11.4-16.0) gm/dL Hct (34.0-46.0) % MCV (80.0-100.0) fL MCH (25.0-35.0) pg MCHC (31.0-37.0) g/dL RDW (11.5-15.5) % Neutrophils # (Manual) (1.3-7.7) k/uL Nucleated RBCs (0-0) /100 WBC ABG pH (7.35-7.45) ABG pCO2 (35-45) mmHg ABG pO2 (83-108) mmHg ABG Total CO2 (19-24) mmol/L Chloride (98-107) mmol/L BUN (7-17) mg/dL Creatinine (0.52-1.04) mg/dL POC Glucose (mg/dL) 163 H 144 H 119 H (75-99) mg/dL Calcium (8.4-10.2) mg/dL Phosphorus (2.5-4.5) mg/dL Magnesium (1.6-2.3) mg/dL 03/14/17 03/14/17 03/14/17 Range/Units 04:32 05:30 05:30 WBC 12.8 H (3.8-10.6) k/uL RBC 3.46 L (3.80-5.40) m/uL Hgb 8.3 L (11.4-16.0) gm/dL Hct 27.2 L (34.0-46.0) % MCV 78.7 L (80.0-100.0) fL MCH 23.9 L (25.0-35.0) pg MCHC 30.4 L (31.0-37.0) g/dL RDW 24.6 H (11.5-15.5) % Neutrophils # (Manual) 9.66 H (1.3-7.7) k/uL Nucleated RBCs 6 H (0-0) /100 WBC ABG pH 7.46 H (7.35-7.45) ABG pCO2 34 L (35-45) mmHg ABG pO2 82 L (83-108) mmHg ABG Total CO2 25 H (19-24) mmol/L Chloride 110 H (98-107) mmol/L BUN 69 H (7-17) mg/dL Creatinine 1.10 H (0.52-1.04) mg/dL POC Glucose (mg/dL) (75-99) mg/dL Calcium 7.5 L (8.4-10.2) mg/dL Phosphorus 4.7 H (2.5-4.5) mg/dL Magnesium 2.7 H (1.6-2.3) mg/dL 03/14/17 03/14/17 03/14/17 Range/Units 05:39 07:00 08:14 WBC (3.8-10.6) k/uL RBC (3.80-5.40) m/uL Hgb (11.4-16.0) gm/dL Hct (34.0-46.0) % MCV (80.0-100.0) fL MCH (25.0-35.0) pg MCHC (31.0-37.0) g/dL RDW (11.5-15.5) % Neutrophils # (Manual) (1.3-7.7) k/uL Nucleated RBCs (0-0) /100 WBC ABG pH (7.35-7.45) ABG pCO2 (35-45) mmHg ABG pO2 (83-108) mmHg ABG Total CO2 (19-24) mmol/L Chloride (98-107) mmol/L BUN (7-17) mg/dL Creatinine (0.52-1.04) mg/dL POC Glucose (mg/dL) 102 H 132 H 154 H (75-99) mg/dL Calcium (8.4-10.2) mg/dL Phosphorus (2.5-4.5) mg/dL Magnesium (1.6-2.3) mg/dL 03/14/17 03/14/17 03/14/17 Range/Units 09:13 09:58 12:43 WBC (3.8-10.6) k/uL RBC (3.80-5.40) m/uL Hgb (11.4-16.0) gm/dL Hct (34.0-46.0) % MCV (80.0-100.0) fL MCH (25.0-35.0) pg MCHC (31.0-37.0) g/dL RDW (11.5-15.5) % Neutrophils # (Manual) (1.3-7.7) k/uL Nucleated RBCs (0-0) /100 WBC ABG pH (7.35-7.45) ABG pCO2 (35-45) mmHg ABG pO2 (83-108) mmHg ABG Total CO2 (19-24) mmol/L Chloride (98-107) mmol/L BUN (7-17) mg/dL Creatinine (0.52-1.04) mg/dL POC Glucose (mg/dL) 132 H 128 H 62 L (75-99) mg/dL Calcium (8.4-10.2) mg/dL Phosphorus (2.5-4.5) mg/dL Magnesium (1.6-2.3) mg/dL Microbiology - Last 24 Hours (Table) 03/11/17 17:53 Gram Stain - Final Sputum Sputum Culture - Final Klebsiella oxytoca - Imaging and Cardiology Chest x-ray: report reviewed, image reviewed Assessment and Plan (1) Paroxysmal atrial fibrillation Status: Acute (2) Acute blood loss as cause of postoperative anemia Status: Acute (3) Status post aortic valve replacement Status: Acute (4) Bicuspid aortic valve Status: Acute (5) Diabetes mellitus, insulin dependent (IDDM), controlled Status: Acute (6) Hypertension Status: Acute (7) Severe aortic stenosis Status: Acute (8) Pneumothorax, left Status: Acute (9) History of TIA (transient ischemic attack) Status: Acute (10) Hyperlipidemia Status: Acute (11) Osteoarthritis Status: Acute Plan: 1. Continue aspirin, Plavix, metoprolol, and lisinopril. Her atorvastatin remains on hold due to her elevated liver enzymes. 2. Continue amiodarone drip at 0.5 mcg/m. 3. Pulmonary and ventilator management per Dr. Soler. 4. Monitor daily labs and chest x-ray. 5. DVT and GI prophylaxis in place. 6. Comorbid conditions per primary care management. 7. She was started on ceftriaxone 1000 mg every [address] Soler for positive sputum culture Klebsiella oxytoca. 8. More recommendations as patient progresses. Time with Patient: Greater than 30
[2017-03-14 13:59] LABS: Glucose,Whole Blood 117 mg/dL (75-99)
--- NOTE | 2017-03-14 14:38 | PN ---
DATE OF SERVICE: 03/13/2017 I am covering for Dr. Tabor. This 76-year-old woman who was admitted after aortic surgery also had a pacemaker implantation. The patient is still on insulin drip. The drip is about 9 units per hour. Blood sugar is around 140. The patient is on IV diuretics as well. The patient will be closely monitored in ICU. The patient is mechanically intubated and multiple consultants including Dr. Soler, are following the patient closely. PAST MEDICAL HISTORY: Reviewed. Review of systems could not be taken. Current medications are reviewed and include: 1. [place] 5 mg q.4 p.r.n 2. DuoNeb q.i.d and p.r.n 3. Aspirin 325 mg. 4. Cepacol. 5. Dulcolax. 6. [place] with vitamin D. 7. Plavix. 8. Vitamin B12. 9. Vitamin D2. 10. Zestril. 11. Milk of Magnesia. 12. Lopressor. PHYSICAL EXAMINATION: The patient is sedated. Pulse 79, blood pressure 120/42, respirations 28, temperature is normal, pulse ox 93% on 50% FIO2. Mechanical vent settings noted. HEENT: Conjunctivae normal. Oral mucosa moist. NECK: No jugular venous distention. No carotid bruit. No lymph node enlargement. CARDIOVASCULAR: S1, S2. RESPIRATORY: Breath sounds diminished at the bases. A few scattered rhonchi and crackles. ABDOMEN: Soft, nontender. LEGS: No edema, no swelling. NERVOUS SYSTEM: No focal deficits. LABS: Accu-Cheks 131, 121, 115. Hemoglobin is 7.3. Other labs are noted. ASSESSMENT: 1. Aortic stenosis, status post aortic valve replacement. 2. Status post pacemaker placement for underlying systolic cardiac rhythm. 3. History of paroxysmal atrial fibrillation. 4. Hypertension. 5. Cerebrovascular accident, transient ischemic accident. 6. Bronchial asthma. 7. Diabetes mellitus type 2. 8. History of bicuspid aortic valve. 9. Postoperative acute respiratory failure hypoxic on mechanical ventilation. 10. left-sided pneumothorax, status post chest tube drainage. RECOMMENDATIONS AND DISCUSSION: I recommend to continue the current medications, continue to monitor, continue symptomatic treatment. Otherwise monitor blood sugars closely. Continue the insulin drip at this time. Closely follow with Dr. Soler. Further recommendations to follow. [facility]
[2017-03-14 14:54] LABS: Glucose,Whole Blood 146 mg/dL (75-99)
[2017-03-14 16:11] LABS: Glucose,Whole Blood 136 mg/dL (75-99)
[2017-03-14 17:03] LABS: Glucose,Whole Blood 143 mg/dL (75-99)
[2017-03-14 18:03] LABS: Glucose,Whole Blood 107 mg/dL (75-99)
[2017-03-14 19:11] LABS: Glucose,Whole Blood 120 mg/dL (75-99)
[2017-03-14 19:54] LABS: Glucose,Whole Blood 126 mg/dL (75-99)
[2017-03-14 20:54] LABS: Glucose,Whole Blood 130 mg/dL (75-99)
[2017-03-14] MEDS: SENNOSIDES-DOCUSATE SODIUM 1 EACH TAB PO SCH (20:58)
[2017-03-14] MEDS: MORPHINE SULFATE 2 MG/ML SYRINGE IVP PRN (21:20)
[2017-03-14 23:27] LABS: Glucose,Whole Blood 96 mg/dL (75-99)
[2017-03-15 01:07] LABS: Glucose,Whole Blood 135 mg/dL (75-99)
[2017-03-15] MEDS: prednisoLONE ACETATE 1% OPHTH DROPS 1 ML BTL RIGHT EYE SCH ×4 (01:09→17:04)
[2017-03-15] MEDS: OFLOXACIN 0.3% OPHTH DROPS 5 ML BOTTLE RIGHT EYE SCH ×4 (01:10→17:03)
[2017-03-15] MEDS: AMIODARONE 450 MG in DEXTROSE 5% IN WATER 250 ML IV SCH ×2 (01:11)
[2017-03-15 02:10] LABS: Glucose,Whole Blood 120 mg/dL (75-99)
[2017-03-15] MEDS: IPRATROPIUM-ALBUTEROL 3 ML NEB INHALATION SCH ×6 (03:29→23:11)
[2017-03-15] MEDS: PROPOFOL 1,000 MG/100 ML VIAL IV SCH ×2 (04:04→10:33)
[2017-03-15 04:05] LABS: Glucose,Whole Blood 118 mg/dL (75-99)
[2017-03-15] MEDS: HEPARIN SODIUM,PORCINE 5,000 UNIT/ML 1 ML VIAL SQ SCH ×3 (04:05→20:24)
[2017-03-15] MEDS: hydrALAZINE HCL 20 MG/ML 1 ML VIAL IVP PRN ×3 (04:07→15:18)
[2017-03-15 05:03] LABS: Glucose,Whole Blood 132 mg/dL (75-99)
[2017-03-15 05:22] LABS: Anisocytosis Marked; CH 24.1; CHCM 31.3; HCT 25.2 % (34.0-46.0); HDW 3.88; HGB 7.9 gm/dL (11.4-16.0); Hypochromasia Moderate; MCH 24.4 pg (25.0-35.0); MCHC 31.5 g/dL (31.0-37.0); MCV 77.5 fL (80.0-100.0); Microcytosis Marked; Poikilocytosis Slight; RBC 3.25 m/uL (3.80-5.40); RDW 24.3 % (11.5-15.5); WBC (Perox) 12.75
[2017-03-15 05:30] LABS: Calcium 7.4 mg/dL (8.4-10.2); Magnesium 2.7 mg/dL (1.6-2.3); Phosphorous 3.6 mg/dL (2.5-4.5); Potassium 3.7 mmol/L (3.5-5.1)
[2017-03-15] MEDS ORDERED: Potassium Replacement Protocol 1 EACH MISC MISCELLANE PRN (05:41)
[2017-03-15 05:48] LABS: Add Differential Manual Differential
[2017-03-15 05:52] LABS: Nucleated Red Blood Cells 7 /100 WBC (0-0); Total Cells Counted 200
[2017-03-15 05:53] LABS: Manual Review Performed; WBC 11.8 k/uL (3.8-10.6)
[2017-03-15 05:54] LABS: Polychromasia Present; Target Cells Present
[2017-03-15] MEDS ORDERED: POTASSIUM CHLORIDE ORAL LIQUID 40 MEQ/30 ML CUP NG-TUBE SCH (06:00)
[2017-03-15 06:19] LABS: ABG HCO3 22 mmol/L (21-25); ABG Oxygen Saturation 94.8 % (94-97); ABG PCO2 28 mmHg (35-45); ABG PO2 66 mmHg (83-108); ABG TCO2 23 mmol/L (19-24)
[2017-03-15 06:20] LABS: Glucose,Whole Blood 128 mg/dL (75-99)
[2017-03-15 07:08] LABS: Glucose,Whole Blood 129 mg/dL (75-99)
[2017-03-15] MEDS ORDERED: LISINOPRIL 10 MG TAB PO SCH (07:17)
[2017-03-15] MEDS: CHLORHEXIDINE GLUCONATE 15 ML CUP MUCOUS MEM SCH ×2 (07:34→20:24)
[2017-03-15] MEDS: CLOPIDOGREL 75 MG TAB PO SCH (07:34)
[2017-03-15] MEDS: ASPIRIN 325 MG TAB PO SCH (07:34)
[2017-03-15] MEDS: CALCIUM CARB-VIT D 500MG-200UN 1 EACH TAB PO SCH (07:34)
[2017-03-15] MEDS: METOPROLOL TARTRATE 25 MG TAB PO SCH ×2 (07:34→20:24)
[2017-03-15] MEDS: DIGOXIN 250 MCG/ML 2 ML AMP IVP SCH (07:35)
[2017-03-15] MEDS: PANTOPRAZOLE 40 MG/10 ML VIAL IVP SCH (07:47)
[2017-03-15 07:58] LABS: Glucose,Whole Blood 161 mg/dL (75-99)
[2017-03-15] MEDS: INSULIN REGULAR 100 UNIT in SODIUM CHLORIDE 0.9% 100 ML IV SCH (08:09)
--- NOTE | 2017-03-15 08:54 | XR ---
EXAMINATION TYPE: XR chest 1V portable DATE OF EXAM: 03/15/2017 COMPARISON: NONE HISTORY: Ventilatory dependent respiratory failure TECHNIQUE: Single frontal view of the chest is obtained. FINDINGS: Postsurgical changes and lines and tubes are stable. No residual pneumothorax is appreciat ed. Cardiomegaly is unchanged. Retrocardiac density with obscuration of the left hemidiaphragm is see n, likely on the basis of a trace left pleural effusion and left basilar atelectasis. Mild pulmonary vascular congestion is similar in degree from the prior. Osseous structures appear intact. IMPRESSION: 1. Unchanged mild pulmonary vascular congestion. 2. Stable lines and tubes. 3. Trace left pleural effusion and left basilar atelectasis.
--- NOTE | 2017-03-15 09:01 | P.PN ---
Subjective Principal diagnosis: Status post aVR This is a pleasant 76-year-old female patient who sees Dr. STELLA Lazaro as an outpatient who was diagnosed recently with symptomatic severe aortic stenosis secondary to bicuspid aortic valve. The patient underwent aVR using a bioprosthetic aortic valve. The patient continues to be intubated on ventilator. The plan is to try to wean her today. She might be going to have a PEG and trach tube later on. Hemodynamically she seems to be hypertensive and the dose of lisinopril was increased. Objective - Vital Signs Vital signs: Vital Signs Temp 98.2 F 03/15/17 04:00 Pulse 70 03/15/17 08:19 Resp 26 H 03/15/17 07:00 BP 105/48 03/14/17 10:00 Pulse Ox 95 03/15/17 07:00 Intake & Output 03/14/17 03/15/17 03/15/17 18:59 06:59 18:59 Intake Total 6442.870 4417.560 37.530 Output Total 920 600 60 Balance 279.856 655.560 -22.470 Weight 90.3 kg Intake: IV 273 596 23 Sodium Chloride 0.9% 1, 240 560 20 000 ml @ 20 mls/hr IV . Q24H [facility] Rx#:[id number] pressure bag 33 36 3 Intake, IV Titration 446.856 259.560 14.530 Amount Amiodarone 450 mg In 346.045 162.99 Dextrose 5% in Water 250 ml @ 1 MG/MIN 33.33 mls/ hr IV .Q7H31M [facility] Rx#: [id number] Insulin Regular 100 unit 57.592 39.789 14.530 In Sodium Chloride 0.9% 100 ml @ Per Protocol IV .Q0M [facility] Rx#:[id number] Propofol 1,000 mg In 100 43.219 56.781 ml @ Titrate IV .Q0M [facility] Rx#:[id number] Tube Feeding 480 400 Output: Chest Tube Drainage 160 0 Chest Tube Left Lateral 160 0 Chest Urine 760 600 60 Other: Voiding Method Indwelling Catheter Indwelling Catheter # Bowel Movements 0 0 ABP, PAP, CO, CI - Last Documented Arterial Blood Pressure 155/49 Pulmonary Artery Pressure 43/32 Cardiac Output 3.9 Cardiac Index 2.3 - Constitutional General appearance: Present: mild distress - Respiratory Respiratory: bilateral: diminished - Cardiovascular Heart sounds: normal: S1, S2 - Labs CBC & Chem 7: 03/15/17 05:06 03/15/17 05:06 Labs: Abnormal Lab Results - Last 24 Hours (Table) 03/14/17 03/14/17 03/14/17 Range/Units 09:13 09:58 12:43 WBC (3.8-10.6) k/uL RBC (3.80-5.40) m/uL Hgb (11.4-16.0) gm/dL Hct (34.0-46.0) % MCV (80.0-100.0) fL MCH (25.0-35.0) pg RDW (11.5-15.5) % Neutrophils # (Manual) (1.3-7.7) k/uL Nucleated RBCs (0-0) /100 WBC ABG pH (7.35-7.45) ABG pCO2 (35-45) mmHg ABG pO2 (83-108) mmHg Chloride (98-107) mmol/L BUN (7-17) mg/dL Creatinine (0.52-1.04) mg/dL Glucose (74-99) mg/dL POC Glucose (mg/dL) 132 H 128 H 62 L (75-99) mg/dL Calcium (8.4-10.2) mg/dL Magnesium (1.6-2.3) mg/dL 03/14/17 03/14/17 03/14/17 Range/Units 13:58 14:52 16:10 WBC (3.8-10.6) k/uL RBC (3.80-5.40) m/uL Hgb (11.4-16.0) gm/dL Hct (34.0-46.0) % MCV (80.0-100.0) fL MCH (25.0-35.0) pg RDW (11.5-15.5) % Neutrophils # (Manual) (1.3-7.7) k/uL Nucleated RBCs (0-0) /100 WBC ABG pH (7.35-7.45) ABG pCO2 (35-45) mmHg ABG pO2 (83-108) mmHg Chloride (98-107) mmol/L BUN (7-17) mg/dL Creatinine (0.52-1.04) mg/dL Glucose (74-99) mg/dL POC Glucose (mg/dL) 117 H 146 H 136 H (75-99) mg/dL Calcium (8.4-10.2) mg/dL Magnesium (1.6-2.3) mg/dL 03/14/17 03/14/17 03/14/17 Range/Units 17:02 18:02 19:10 WBC (3.8-10.6) k/uL RBC (3.80-5.40) m/uL Hgb (11.4-16.0) gm/dL Hct (34.0-46.0) % MCV (80.0-100.0) fL MCH (25.0-35.0) pg RDW (11.5-15.5) % Neutrophils # (Manual) (1.3-7.7) k/uL Nucleated RBCs (0-0) /100 WBC ABG pH (7.35-7.45) ABG pCO2 (35-45) mmHg ABG pO2 (83-108) mmHg Chloride (98-107) mmol/L BUN (7-17) mg/dL Creatinine (0.52-1.04) mg/dL Glucose (74-99) mg/dL POC Glucose (mg/dL) 143 H 107 H 120 H (75-99) mg/dL Calcium (8.4-10.2) mg/dL Magnesium (1.6-2.3) mg/dL 03/14/17 03/14/17 03/15/17 Range/Units 19:52 20:52 01:05 WBC (3.8-10.6) k/uL RBC (3.80-5.40) m/uL Hgb (11.4-16.0) gm/dL Hct (34.0-46.0) % MCV (80.0-100.0) fL MCH (25.0-35.0) pg RDW (11.5-15.5) % Neutrophils # (Manual) (1.3-7.7) k/uL Nucleated RBCs (0-0) /100 WBC ABG pH (7.35-7.45) ABG pCO2 (35-45) mmHg ABG pO2 (83-108) mmHg Chloride (98-107) mmol/L BUN (7-17) mg/dL Creatinine (0.52-1.04) mg/dL Glucose (74-99) mg/dL POC Glucose (mg/dL) 126 H 130 H 135 H (75-99) mg/dL Calcium (8.4-10.2) mg/dL Magnesium (1.6-2.3) mg/dL 03/15/17 03/15/17 03/15/17 Range/Units 02:07 04:02 05:00 WBC (3.8-10.6) k/uL RBC (3.80-5.40) m/uL Hgb (11.4-16.0) gm/dL Hct (34.0-46.0) % MCV (80.0-100.0) fL MCH (25.0-35.0) pg RDW (11.5-15.5) % Neutrophils # (Manual) (1.3-7.7) k/uL Nucleated RBCs (0-0) /100 WBC ABG pH (7.35-7.45) ABG pCO2 (35-45) mmHg ABG pO2 (83-108) mmHg Chloride (98-107) mmol/L BUN (7-17) mg/dL Creatinine (0.52-1.04) mg/dL Glucose (74-99) mg/dL POC Glucose (mg/dL) 120 H 118 H 132 H (75-99) mg/dL Calcium (8.4-10.2) mg/dL Magnesium (1.6-2.3) mg/dL 03/15/17 03/15/17 03/15/17 Range/Units 05:06 05:06 05:36 WBC 11.8 H (3.8-10.6) k/uL RBC 3.25 L (3.80-5.40) m/uL Hgb 7.9 L (11.4-16.0) gm/dL Hct 25.2 L (34.0-46.0) % MCV 77.5 L (80.0-100.0) fL MCH 24.4 L (25.0-35.0) pg RDW 24.3 H (11.5-15.5) % Neutrophils # (Manual) 8.85 H (1.3-7.7) k/uL Nucleated RBCs 7 H (0-0) /100 WBC ABG pH 7.50 H (7.35-7.45) ABG pCO2 28 L (35-45) mmHg ABG pO2 66 L (83-108) mmHg Chloride 111 H (98-107) mmol/L BUN 65 H (7-17) mg/dL Creatinine 1.09 H (0.52-1.04) mg/dL Glucose 121 H (74-99) mg/dL POC Glucose (mg/dL) (75-99) mg/dL Calcium 7.4 L (8.4-10.2) mg/dL Magnesium 2.7 H (1.6-2.3) mg/dL 03/15/17 03/15/17 03/15/17 Range/Units 06:19 07:06 07:57 WBC (3.8-10.6) k/uL RBC (3.80-5.40) m/uL Hgb (11.4-16.0) gm/dL Hct (34.0-46.0) % MCV (80.0-100.0) fL MCH (25.0-35.0) pg RDW (11.5-15.5) % Neutrophils # (Manual) (1.3-7.7) k/uL Nucleated RBCs (0-0) /100 WBC ABG pH (7.35-7.45) ABG pCO2 (35-45) mmHg ABG pO2 (83-108) mmHg Chloride (98-107) mmol/L BUN (7-17) mg/dL Creatinine (0.52-1.04) mg/dL Glucose (74-99) mg/dL POC Glucose (mg/dL) 128 H 129 H 161 H (75-99) mg/dL Calcium (8.4-10.2) mg/dL Magnesium (1.6-2.3) mg/dL Microbiology - Last 24 Hours (Table) 03/11/17 17:53 Gram Stain - Final Sputum Sputum Culture - Final Klebsiella oxytoca Assessment and Plan Plan: Continue the current medical treatment which included dual antiplatelet therapy , metoprolol, lisinopril, digoxin and amiodarone. We might need to DC the digoxin down the line if the kidney function is deteriorating. The patient might go to have a PEG and trach tube later on today. An attempt to wean her is also going to happen today.
[2017-03-15 09:28] LABS: Glucose,Whole Blood 157 mg/dL (75-99)
[2017-03-15] MEDS: AMIODARONE 200 MG TAB PO SCH ×2 (10:46→20:24)
[2017-03-15] MEDS: CYANOCOBALAMIN 500 MCG TAB PO SCH (10:55)
[2017-03-15 11:09] LABS: Glucose,Whole Blood 120 mg/dL (75-99)
[2017-03-15] MEDS: NYSTATIN 100,000 UNIT/ML SUSP 500,000 UNIT/5 ML CUP PO SCH ×4 (11:46→22:13)
--- NOTE | 2017-03-15 11:52 | P.PN ---
Subjective Principal diagnosis: Status post aortic valve replacement, postoperative day #10. 76-year-old male patient is postop day #4 following aortic valve replacement. Patient also is known to have previous CVA, bronchial asthma, hyperlipidemia, diabetes and hypertension. Surgery was done for bicuspid aortic valve and the patient is status post aortic valve replacement, bioprosthetic valve. Postop, the patient developed some mediastinal bleeding with hypotension. Based on that the patient was taken back to the operating room to control the bleed and during the process the patient was given a total of 4 units of packed RBC, 2 units of fresh frozen plasma one unit of platelets. The patient was kept intubated on mechanical ventilator. As mentioned today's postop day #4 On today's evaluation, the patient remains on a mechanical ventilator. The patient is an assist-control mode of ventilation with a rate of 24, tidal volume 350, FiO2 of 60% and a PEEP of 10. She is intubated with a #8 ET tube. Chest x-ray from today shows adequate expansion of both lungs. Chest tubes are in place. ET tube is in place. She has some mild cardiomegaly. No sinus complaints or pleural effusions. No pneumothorax seen. The blood gases from this morning showed a pH of 7.38 with a pCO2 of 36 and pO2 of 76. Hemodynamically the patient is stable. The patient is producing adequate amount of urine output. The patient is on no pressors. The patient is on no clevidipine drip. Blood pressure is on under good control. The chest tubes are still in place. The patient has a right pleural and left pleural chest tube and 2 mediastinal chest tubes. All of them are showing minimal amount of drainage and the patient would have the mediastinal and the right sided chest tube pulled today. Platelet count improved and it's up to 148. Hemoglobin stable at 8.1. She is sedated with Diprivan. She is calm and comfortable. On 03/09/2017 the patient is still being seen in follow-up. The patient has been quite stable overnight. The patient is on a mechanical ventilator and based on the most is a vent changes she is on a rate of 24, tidal volume 450, FiO2 has been down to 40% and I cut down the PEEP down to 8 and then down to 5 cm of water. The patient's chest x-ray showing cardiomegaly and there is a component of pulmonary vessel congestion. The patient was given 20 mg of IV Lasix this morning. She is producing adequate amount of urine output. The mediastinal and the right pleural chest tube has been removed. The patient has a left pleural chest tube only. No fever. No chills. Tolerating tube feeds. No other significant events overnight. Blood gases from this morning showed a pH of 7.48 with a pCO2 of 29 and a pO2 of 83. Hemoglobin stable at 8.5. On 03/10/2017 the patient is being seen in follow-up. She was taken off sedation this morning and she was very slow in recovering from sedation. Despite being off the sedation for few hours, the patient is still lethargic. She is arousable and she can follow simple commands. She is not fully alert however. She remains on same vent settings overnight which included an assist- control of 24, tidal volume 450, FiO2 of 40% and a PEEP of 5. Blood gases from this morning showed a component of respiratory alkalosis. Chest x-ray shows cardiomegaly with pulmonary vascular congestion and the patient was given 20 mg of IV Lasix earlier by cardiothoracic surgery. Mediastinal and right pleural chest tube has been removed. The patient has a left-sided chest tube in place. Sternum stable clean and intact. No major edema in lower extremities. After being taken off sedation, check weaning parameters and the patient was becoming quite restless even on assist control mode of ventilation. She was becoming tachypneic and her minute ventilation was high. She was able to generate more than 400 mL of tidal volume and a support of 5 and a PEEP of 5. At that point, I made a decision to extubate this patient to a BiPAP at a pressure of 12/5 cm of water and FiO2 of 60%. One hour following extubation, blood gases was done and showed a pH of 7.42 with a pCO2 of 37 and pO2 of 76. She is still lethargic and somewhat sleepy. She is arousable however. She did have some hypertensive reaction for which she was given 5 g of IV Lopressor. She is a bit anxious and she'll be given 1 mg of Ativan. Additional dose of 40 because of Lasix will be given. I am inclined not to reintubate this patient. I'm trying to stabilize her condition to avoid reintubation. Note that she has a restrictive lung disease pH is obese. Her FVC and FEV1 were in the 55% of age preoperatively. Her lung volumes are small on today's chest x-ray. On 03/11/2017 the patient is being seen in follow-up. After being extubated for few hours the patient had to be intubated. Immediately after the intubation she had frothy rest or secretions with orotracheal tube and she was suspected to be in acute pulmonary edema. Based on that the patient with diuresis with IV Lasix and since then her fluid balance has been negative. She has diuresed another 1 L since yesterday. She is sedated on Diprivan and she is calm and comfortable. She is on a mechanical ventilator on assist control mode at the rate of 2, tidal volume 400, FiO2 of 40% and a PEEP of 7. The vent changes were adjusted this morning after I reviewed the blood gases and a chest x-ray. The chest x-ray shows some cardiomegaly and mild four-vessel congestion and a blood gas showed a pH of 7.42 with a pCO2 of 38 and pO2 136. Earlier this morning the patient was also having A dose of hypotension. His systolic blood pressure was dropping in the mid 80s. She was placed on norepinephrine infusion and was running at around 4-5 mics to maintain a mean artery pressure above 65. Cardiac rhythm is atrial fibrillation. She was having episodes of bradycardia and tachycardia. I noted on several occasions that the patient's backup pacemaker was discharging. At the rate is stage became tachycardic. CT surgery was involved and the patient was given digoxin 0.5 mg. She is currently ventricular paced at the rate of 65. The underlying rhythm was asystole. Note that she had gotten her metoprolol earlier this morning. She is back on her tube feeds and currently she is on vital high protein at the rate of 40 mL an hour. In terms of fluid balance, she is on IV D5 water at the rate of 40. Producing somewhere between 75 mL an hour of urine output. Afebrile. The patient is seen again today 03/12/2017 in follow-up in the intensive care unit. She remains intubated and on the mechanical ventilator. Currently in an assist-control mode with a rate of 12, tidal volume 400, FiO2 40 and a PEEP of 5. Morning blood gases reveal a P O2 of 74, pCO2 of 34 and a pH of 7.44. Today 's chest x-ray revealed overall stable findings, there is chronic parenchymal changes and cardiomegaly with patchy left basilar atelectasis. No new infiltrates are seen. She remains on norepinephrine at 3 mcg/m to maintain mean arterial pressure of 65 and greater. She is sedated on propofol at 35 mcg/ kg/m. She is on insulin drip at 5.5 units per hour. Her Vital high-protein tube feeds are currently on hold as the patient has been noticed to be pacemaker dependent and the plan is for insertion of a permanent pacemaker today. On 03/13/2017 the patient is being seen in follow-up in the intensive care unit. She is was sedated and she is calm and comfortable. Noted the patient underwent a pacemaker insertion yesterday for postoperative asystole. The patient postop developed a 50% pneumothorax on the left. A chest tube was inserted in the intensive care unit without any complication today's chest x- ray shows full expansion of the left lung without evidence of any pneumothorax or air leak. Meanwhile, the patient is still on a mechanical ventilator assist control mode with tidal volume 400, FiO2 of 50% and a PEEP of 5. The blood gases showed a pH of 7.5 with a pCO2 of 31 and pO2 of 60. Chest x-ray is showing thyromegaly and pulmonary vessel congestion. Sodium level is at 142. Hemoglobin is at 7.3 which is a gram lower compared to yesterday. A sedation holiday will be done and we'll check again the weaning parameters., Judgment the patient is not ready to wean yet. Oxidation is still borderline and there is not a whole lot of room for potential extubation on today's evaluation. She is tolerating her tube feeds. She is on 50 mics of the prevent. No fever. No chills. Sternum stable clean and intact. On 03/14/2017 the patient is being seen in follow-up in the intensive care units. She is calm and comfortable. She was given a sedation holiday and she woke up very appropriately today. She is following commands. She is still intubated on a mechanical ventilator. She is an assist-control mode at the rate of 12, FiO2 of 50%, tidal volume 400 and a PEEP of 5. Chest x-ray showing cardiomegaly, there is a left-sided chest tube in place without evidence of pneumothorax, ET tube is in a good location there is some mild pulmonary vascular congestion. The patient is on no pressors. Overnight she went into each of fibrillation with rapid ventricular response. She was placed on amiodarone drip. Note that she has a pacemaker in place as the patient went into complete asystole post AVR. She is producing adequate amount of urine output. Renal function is stable. There is Klebsiella growing in her sputum and based on that the patient be started on IV antibiotics. She is afebrile for now. No leukocytosis. Hemoglobin today is at 8.3. On 03/15/2017, patient remains on mechanical ventilation, earlier trial of weaning and holding sedation failed, patient was noted to be extremely agitated tachypneic and tachycardic, hence she had to be placed back on propofol, and back on assist control mode of mechanical ventilation. Patient is arousable, follows simple instructions, but clearly her gases are marginal, and her weaning parameters are poor considering her extreme agitation once off sedation. Her ventilator settings were reviewed, she is presently on FiO2 of 45 %, tidal volume of 400, PEEP of 5. Her flow rate is about 60 L/m, and that gives us an inspiratory and expiratory ratio of 1:2. ABG showed a pO2 of 66 pCO2 of 28 pH of 7.50, hence I cut down her before meals rate to 16. Her FiO2 is now 45% instead of 40%. CBC showed the PEEP cigar of 11.8 hemoglobin of 7.9. BUN is 65 creatinine of 1.09. Gram stain of the sputum and culture showed Klebsiella oxytoca patient is on Rocephin. Objective - Vital Signs Vital signs: Vital Signs Temp 98.1 F 03/15/17 08:00 Pulse 69 03/15/17 11:00 Resp 16 03/15/17 11:00 BP 105/48 03/14/17 10:00 Pulse Ox 95 03/15/17 11:00 Intake & Output 03/14/17 03/15/17 03/15/17 18:59 06:59 18:59 Intake Total 4846.096 7215.560 526.087 Output Total 920 600 285 Balance 279.856 655.560 241.087 Weight 90.3 kg 90.3 kg Intake: IV 273 596 112 Sodium Chloride 0.9% 1, 240 560 100 000 ml @ 20 mls/hr IV . Q24H [facility] Rx#:[id number] pressure bag 33 36 12 Intake, IV Titration 446.856 259.560 194.087 Amount Amiodarone 450 mg In 346.045 162.99 Dextrose 5% in Water 250 ml @ 1 MG/MIN 33.33 mls/ hr IV .Q7H31M [facility] Rx#: [id number] Insulin Regular 100 unit 57.592 39.789 35.504 In Sodium Chloride 0.9% 100 ml @ Per Protocol IV .Q0M [facility] Rx#:[id number] Propofol 1,000 mg In 100 43.219 56.781 58.583 ml @ Titrate IV .Q0M [facility] Rx#:[id number] cefTRIAXone 1,000 mg In 100 Sodium Chloride 0.9% 50 ml @ 100 mls/hr IVPB Q24HR [facility] Rx#:[id number] Tube Feeding 480 400 160 Other 60 Output: Chest Tube Drainage 160 0 50 Chest Tube Left Lateral 160 0 50 Chest Urine 760 600 235 Other: Voiding Method Indwelling Catheter Indwelling Catheter Indwelling Catheter # Voids 35 # Bowel Movements 0 0 ABP, PAP, CO, CI - Last Documented Arterial Blood Pressure 141/44 Pulmonary Artery Pressure 43/32 Cardiac Output 3.9 Cardiac Index 2.3 - Exam Awake and alert and following some simple commands. She is moving all 4 extremities without any limitation. comfortable intubated on a mechanical ventilator and orogastric and orotracheal tube are both in place..Head exam was generally normal. There was no scleral icterus or corneal arcus. Mucous membranes were moist. Neck is short and supple and the patient has significant crowding of the posterior oropharynx. 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 Lungs sounds are diminished bilaterally along with some bibasilar crackles.the patient has a left-sided chest tube without evidence of any air leak. There is also a pacemaker pocket over the left anterior chest area. Cardiac exam revealed the PMI to be normally situated and sized. The rhythm was regular and no extrasystoles were noted during several minutes of auscultation. The first and second heart sounds were normal and physiologic splitting of the second heart sound was noted. The rhythm is paced . . There were no murmurs, rubs, clicks, or gallops.Abdominal exam revealed normal bowel sounds. The abdomen was soft, non-tender, and without masses, organomegaly, or appreciable enlargement of the abdominal aorta. Extremities show trace edema and there is no cyanosis or clubbing at this point. Neurologically the patient is sedated. She has however arousable and she would withdraw no for extremities without any major difficulties. - Labs CBC & Chem 7: 03/15/17 05:06 03/15/17 05:06 Labs: Abnormal Lab Results - Last 24 Hours (Table) 03/14/17 03/14/17 03/14/17 Range/Units 12:43 13:58 14:52 WBC (3.8-10.6) k/uL RBC (3.80-5.40) m/uL Hgb (11.4-16.0) gm/dL Hct (34.0-46.0) % MCV (80.0-100.0) fL MCH (25.0-35.0) pg RDW (11.5-15.5) % Neutrophils # (Manual) (1.3-7.7) k/uL Nucleated RBCs (0-0) /100 WBC ABG pH (7.35-7.45) ABG pCO2 (35-45) mmHg ABG pO2 (83-108) mmHg Chloride (98-107) mmol/L BUN (7-17) mg/dL Creatinine (0.52-1.04) mg/dL Glucose (74-99) mg/dL POC Glucose (mg/dL) 62 L 117 H 146 H (75-99) mg/dL Calcium (8.4-10.2) mg/dL Magnesium (1.6-2.3) mg/dL 03/14/17 03/14/17 03/14/17 Range/Units 16:10 17:02 18:02 WBC (3.8-10.6) k/uL RBC (3.80-5.40) m/uL Hgb (11.4-16.0) gm/dL Hct (34.0-46.0) % MCV (80.0-100.0) fL MCH (25.0-35.0) pg RDW (11.5-15.5) % Neutrophils # (Manual) (1.3-7.7) k/uL Nucleated RBCs (0-0) /100 WBC ABG pH (7.35-7.45) ABG pCO2 (35-45) mmHg ABG pO2 (83-108) mmHg Chloride (98-107) mmol/L BUN (7-17) mg/dL Creatinine (0.52-1.04) mg/dL Glucose (74-99) mg/dL POC Glucose (mg/dL) 136 H 143 H 107 H (75-99) mg/dL Calcium (8.4-10.2) mg/dL Magnesium (1.6-2.3) mg/dL 03/14/17 03/14/17 03/14/17 Range/Units 19:10 19:52 20:52 WBC (3.8-10.6) k/uL RBC (3.80-5.40) m/uL Hgb (11.4-16.0) gm/dL Hct (34.0-46.0) % MCV (80.0-100.0) fL MCH (25.0-35.0) pg RDW (11.5-15.5) % Neutrophils # (Manual) (1.3-7.7) k/uL Nucleated RBCs (0-0) /100 WBC ABG pH (7.35-7.45) ABG pCO2 (35-45) mmHg ABG pO2 (83-108) mmHg Chloride (98-107) mmol/L BUN (7-17) mg/dL Creatinine (0.52-1.04) mg/dL Glucose (74-99) mg/dL POC Glucose (mg/dL) 120 H 126 H 130 H (75-99) mg/dL Calcium (8.4-10.2) mg/dL Magnesium (1.6-2.3) mg/dL 03/15/17 03/15/17 03/15/17 Range/Units 01:05 02:07 04:02 WBC (3.8-10.6) k/uL RBC (3.80-5.40) m/uL Hgb (11.4-16.0) gm/dL Hct (34.0-46.0) % MCV (80.0-100.0) fL MCH (25.0-35.0) pg RDW (11.5-15.5) % Neutrophils # (Manual) (1.3-7.7) k/uL Nucleated RBCs (0-0) /100 WBC ABG pH (7.35-7.45) ABG pCO2 (35-45) mmHg ABG pO2 (83-108) mmHg Chloride (98-107) mmol/L BUN (7-17) mg/dL Creatinine (0.52-1.04) mg/dL Glucose (74-99) mg/dL POC Glucose (mg/dL) 135 H 120 H 118 H (75-99) mg/dL Calcium (8.4-10.2) mg/dL Magnesium (1.6-2.3) mg/dL 03/15/17 03/15/17 03/15/17 Range/Units 05:00 05:06 05:06 WBC 11.8 H (3.8-10.6) k/uL RBC 3.25 L (3.80-5.40) m/uL Hgb 7.9 L (11.4-16.0) gm/dL Hct 25.2 L (34.0-46.0) % MCV 77.5 L (80.0-100.0) fL MCH 24.4 L (25.0-35.0) pg RDW 24.3 H (11.5-15.5) % Neutrophils # (Manual) 8.85 H (1.3-7.7) k/uL Nucleated RBCs 7 H (0-0) /100 WBC ABG pH (7.35-7.45) ABG pCO2 (35-45) mmHg ABG pO2 (83-108) mmHg Chloride 111 H (98-107) mmol/L BUN 65 H (7-17) mg/dL Creatinine 1.09 H (0.52-1.04) mg/dL Glucose 121 H (74-99) mg/dL POC Glucose (mg/dL) 132 H (75-99) mg/dL Calcium 7.4 L (8.4-10.2) mg/dL Magnesium 2.7 H (1.6-2.3) mg/dL 03/15/17 03/15/17 03/15/17 Range/Units 05:36 06:19 07:06 WBC (3.8-10.6) k/uL RBC (3.80-5.40) m/uL Hgb (11.4-16.0) gm/dL Hct (34.0-46.0) % MCV (80.0-100.0) fL MCH (25.0-35.0) pg RDW (11.5-15.5) % Neutrophils # (Manual) (1.3-7.7) k/uL Nucleated RBCs (0-0) /100 WBC ABG pH 7.50 H (7.35-7.45) ABG pCO2 28 L (35-45) mmHg ABG pO2 66 L (83-108) mmHg Chloride (98-107) mmol/L BUN (7-17) mg/dL Creatinine (0.52-1.04) mg/dL Glucose (74-99) mg/dL POC Glucose (mg/dL) 128 H 129 H (75-99) mg/dL Calcium (8.4-10.2) mg/dL Magnesium (1.6-2.3) mg/dL 03/15/17 03/15/17 03/15/17 Range/Units 07:57 09:26 11:07 WBC (3.8-10.6) k/uL RBC (3.80-5.40) m/uL Hgb (11.4-16.0) gm/dL Hct (34.0-46.0) % MCV (80.0-100.0) fL MCH (25.0-35.0) pg RDW (11.5-15.5) % Neutrophils # (Manual) (1.3-7.7) k/uL Nucleated RBCs (0-0) /100 WBC ABG pH (7.35-7.45) ABG pCO2 (35-45) mmHg ABG pO2 (83-108) mmHg Chloride (98-107) mmol/L BUN (7-17) mg/dL Creatinine (0.52-1.04) mg/dL Glucose (74-99) mg/dL POC Glucose (mg/dL) 161 H 157 H 120 H (75-99) mg/dL Calcium (8.4-10.2) mg/dL Magnesium (1.6-2.3) mg/dL Microbiology - Last 24 Hours (Table) 03/11/17 17:53 Gram Stain - Final Sputum Sputum Culture - Final Klebsiella oxytoca Assessment and Plan Plan: 1 aortic valve replacement for severe bicuspid aortic valve stenosis, patient is postop day #10 2 postoperative mediastinal bleeding, recovered 3 postoperative cardiac arrhythmia, asystole, status post insertion of a pacemaker. 4 acute hypoxic respiratory failure, expected outcome of surgery. The patient failed a trial of extubation approximately 3 days ago. Subsequently, there were no weaning trials done as the patient was considered to be on stable for weaning. This morning, the patient is much more awake and stabilized and hemodynamically she is doing well. Chest x-ray was reviewed. Blood gases was reviewed. We'll continue weaning trials on a daily basis, however she failed once she was taken off sedation earlier today. Hence she is back on assist control mode and propofol. May consider trial of weaning on Precedex tomorrow. 5 iatrogenic left-sided pneumothorax status post chest tube insertion with successful expansion of the left lung without evidence of any air leak. 6 hypertension, history of 7 CVA/TIA, history of 8 bronchial asthma, history of 9 obesity 10 restrictive lung physiology on preop spirometry with an FEV1 of 56% of predicted. 11 thrombocytopenia, recovered 12 postoperative anemia, expected, hemoglobin is at 7.9 Recommendation: Continue patient on mechanical ventilation, we'll continue daily weaning trials, clearly today she is not ready for weaning and extubation. Continue antibiotics, nutritional support, bronchodilators, GI and DVT prophylaxis, adjusted her ventilator settings this morning, reviewed by plan of care with the nurses at bedside. And again we'll try weaning trials on a daily basis. If she continues to fail by the end of this week, May have to seriously consider tracheostomy. Critical care time is 34 minutes. Time with Patient: Greater than 30
--- NOTE | 2017-03-15 12:17 | PN ---
DATE OF SERVICE: 03/14/2017 I am covering for Dr. Tabor. This 76-year-old woman who was admitted after aortic surgery also had a pacemaker implantation. The patient also has diabetes on insulin drip. The patient is on 7.5 units 2 hourly. is being monitored. Dr. Soler is following the patient closely. PAST MEDICAL HISTORY: Reviewed. Review of systems could not be taken. Current medications reviewed and include: 1. [place] 5 mg q.4 p.r.n 2. DuoNeb q.i.d and p.r.n 3. Amiodarone drip. 4. Aspirin. 5. Cepacol. 6. Dulcolax. 7. [place] with vitamin D. 8. Rocephin. 9. Gabapentin. 10. Vitamin B12. 11. Vitamin D2. 12. P.r.n medications. 13. Zestril. PHYSICAL EXAMINATION: The patient is mechanically ventilated. Vent settings are noted. Vital signs showed pulse is 73, blood pressure 160/82, respirations 24, temperature 98.4, pulse ox 90% on 40% mechanical ventilation. HEENT: Conjunctivae normal. NECK: No jugular venous distention. CARDIOVASCULAR: S1, S2. RESPIRATORY: Breath sounds diminished at the bases. Bilateral scattered rhonchi and crackles. ABDOMEN: Soft, nontender, no mass palpable. LEGS: No edema, no swelling. NERVOUS SYSTEM: No focal deficits. LABS: WBC 12.8, hemoglobin 8.3. ASSESSMENT: 1. Aortic stenosis status post aortic valve replacement. 2. Status post pacemaker placement for underlying systolic cardiac rhythm. 3. History of paroxysmal atrial fibrillation. 4. Hypertension. 5. Diabetes mellitus type 2 on insulin drip. 6. CVA, TIA. 7. History of bronchial asthma. 8. History of bicuspid aortic valve. 9. Postoperative acute respiratory failure. RECOMMENDATIONS AND DISCUSSION: I recommend to continue the current medications, continue symptomatic treatment. I recommend to continue the insulin drip as well as ( ) q.2 hourly blood sugar checking. Repeat labs. Continue the rest of the medications. Further weaning per Pulmonary. Otherwise Dr. Tabor will follow. Further recommendations to follow. MTDD
[2017-03-15 12:29] LABS: Glucose,Whole Blood 114 mg/dL (75-99)
[2017-03-15] MEDS: CLEVIDIPINE BUTYRATE 25 MG in EMPTY BAG 1 BAG IV SCH (13:45)
[2017-03-15] MEDS: SODIUM CHLORIDE 0.9% 1,000 ML IV SCH (13:46)
[2017-03-15 13:58] LABS: Glucose,Whole Blood 141 mg/dL (75-99)
[2017-03-15 15:05] LABS: Glucose,Whole Blood 132 mg/dL (75-99)
[2017-03-15 17:05] LABS: Glucose,Whole Blood 131 mg/dL (75-99)
[2017-03-15 19:06] LABS: Glucose,Whole Blood 116 mg/dL (75-99)
[2017-03-15 20:06] LABS: Glucose,Whole Blood 114 mg/dL (75-99)
[2017-03-15] MEDS: SENNOSIDES-DOCUSATE SODIUM 1 EACH TAB PO SCH (20:23)
[2017-03-15 21:17] LABS: Glucose,Whole Blood 120 mg/dL (75-99)
[2017-03-15 22:10] LABS: Glucose,Whole Blood 130 mg/dL (75-99)
[2017-03-15 23:03] LABS: Glucose,Whole Blood 144 mg/dL (75-99)
[2017-03-16 00:02] LABS: Glucose,Whole Blood 139 mg/dL (75-99)
[2017-03-16] MEDS: OFLOXACIN 0.3% OPHTH DROPS 5 ML BOTTLE RIGHT EYE SCH ×5 (00:43→23:38)
[2017-03-16] MEDS: prednisoLONE ACETATE 1% OPHTH DROPS 1 ML BTL RIGHT EYE SCH ×5 (00:43→23:38)
[2017-03-16 01:00] LABS: Glucose,Whole Blood 143 mg/dL (75-99)
[2017-03-16 01:59] LABS: Glucose,Whole Blood 126 mg/dL (75-99)
[2017-03-16] MEDS: PROPOFOL 1,000 MG/100 ML VIAL IV SCH (02:16)
[2017-03-16 03:12] LABS: Glucose,Whole Blood 117 mg/dL (75-99)
[2017-03-16] MEDS: IPRATROPIUM-ALBUTEROL 3 ML NEB INHALATION SCH ×6 (03:14→23:26)
[2017-03-16 03:51] LABS: Glucose,Whole Blood 117 mg/dL (75-99)
[2017-03-16 05:12] LABS: Glucose,Whole Blood 105 mg/dL (75-99)
[2017-03-16 05:42] LABS: Anisocytosis Marked; CH 24.5; CHCM 31.2; HCT 25.7 % (34.0-46.0); HDW 3.93; HGB 7.7 gm/dL (11.4-16.0); Hypochromasia Moderate; MCH 23.5 pg (25.0-35.0); MCHC 29.8 g/dL (31.0-37.0); MCV 79.1 fL (80.0-100.0); Microcytosis Marked; Poikilocytosis Slight; RBC 3.25 m/uL (3.80-5.40); RDW 24.8 % (11.5-15.5); WBC (Perox) 10.26
[2017-03-16 06:00] LABS: Anion Gap 9 mmol/L; Blood Urea Nitrogen 64 mg/dL (7-17); Calcium 7.7 mg/dL (8.4-10.2); Carbon Dioxide 22 mmol/L (22-30); Chloride 113 mmol/L (98-107); Glucose 97 mg/dL (74-99); Magnesium 2.8 mg/dL (1.6-2.3); Non-African American GFR(MDRD) 54 (>60 ml/min/1.73 sqM); Phosphorous 4.1 mg/dL (2.5-4.5); Sodium 144 mmol/L (137-145)
[2017-03-16 06:15] LABS: Glucose,Whole Blood 128 mg/dL (75-99)
[2017-03-16 06:16] LABS: Add Differential Manual Differential
[2017-03-16 06:23] LABS: Band Neutrophils % 1.5 %; Manual Review Performed; Metamyelocytes % 1 %; Nucleated Red Blood Cells 2 /100 WBC (0-0); Total Cells Counted 200; WBC 10.2 k/uL (3.8-10.6)
[2017-03-16] MEDS: HEPARIN SODIUM,PORCINE 5,000 UNIT/ML 1 ML VIAL SQ SCH ×3 (06:23→20:03)
[2017-03-16 06:24] LABS: Polychromasia Present; Target Cells Present
[2017-03-16 07:03] LABS: Glucose,Whole Blood 122 mg/dL (75-99)
--- NOTE | 2017-03-16 07:51 | XR ---
EXAMINATION TYPE: XR chest 1V portable DATE OF EXAM: 03/16/2017 COMPARISON: March 15, 2017 HISTORY: SOB, Follow Up FINDINGS: Indwelling tubes and catheters are unchanged. No change in bibasilar opacities. Stable appearance of the cardio-mediastinal structures at this time. Pulmonary venous congestion pers ists. Pleural effusion unchanged. IMPRESSION: 1. Stable portable chest. Clinical correlation and follow up until resolution is recommended.
[2017-03-16] MEDS: CALCIUM CARB-VIT D 500MG-200UN 1 EACH TAB PO SCH (08:08)
[2017-03-16] MEDS: CLOPIDOGREL 75 MG TAB PO SCH (08:08)
[2017-03-16] MEDS: ASPIRIN 325 MG TAB PO SCH (08:08)
[2017-03-16] MEDS: METOPROLOL TARTRATE 25 MG TAB PO SCH ×2 (08:08→20:04)
[2017-03-16] MEDS: PANTOPRAZOLE 40 MG/10 ML VIAL IVP SCH (08:08)
[2017-03-16] MEDS: CHLORHEXIDINE GLUCONATE 15 ML CUP MUCOUS MEM SCH ×2 (08:08→20:04)
[2017-03-16] MEDS: AMIODARONE 200 MG TAB PO SCH ×2 (08:09→20:04)
[2017-03-16] MEDS: NYSTATIN 100,000 UNIT/ML SUSP 500,000 UNIT/5 ML CUP PO SCH ×4 (08:10→21:31)
[2017-03-16] MEDS: DIGOXIN 250 MCG/ML 2 ML AMP IVP SCH (08:10)
[2017-03-16 08:14] LABS: Glucose,Whole Blood 123 mg/dL (75-99)
[2017-03-16 08:30] LABS: ABG Base Excess -2.7 mmol/L; ABG HCO3 21 mmol/L (21-25); ABG PCO2 33 mmHg (35-45); ABG PH 7.42 (7.35-7.45); ABG PO2 85 mmHg (83-108); ABG TCO2 22 mmol/L (19-24)
--- NOTE | 2017-03-16 08:56 | P.PN ---
Subjective Principal diagnosis: Status post aVR This is a pleasant 76-year-old female patient who sees Dr. STELLA Lazaro as an outpatient who was diagnosed recently with symptomatic severe aortic stenosis secondary to bicuspid aortic valve. The patient underwent aVR using a bioprosthetic aortic valve. The patient continues to be intubated on ventilator. The plan is to try to wean her today. She might be going to have a PEG and trach tube later on. Hemodynamically she seems to be hypertensive and I would increase the dose of lisinopril to 10 mg by mouth twice a day. Also I am going to DC the digoxin. The hemoglobin today 7.7. The patient seems to be a bit more awake. Objective - Vital Signs Vital signs: Vital Signs Temp 98.2 F 03/16/17 04:00 Pulse 69 03/16/17 08:06 Resp 26 H 03/16/17 07:00 BP 105/48 03/14/17 10:00 Pulse Ox 97 03/16/17 07:00 Intake & Output 03/15/17 03/16/17 03/16/17 18:59 06:59 18:59 Intake Total 1128.077 901.620 63 Output Total 755 545 60 Balance 373.077 356.620 3 Weight 90.3 kg 87.8 kg Intake: IV 270 276 23 Sodium Chloride 0.9% 1, 240 240 20 000 ml @ 20 mls/hr IV . Q24H [facility] Rx#:[id number] pressure bag 30 36 3 Intake, IV Titration 218.077 145.620 Amount Insulin Regular 100 unit 48.990 56.124 In Sodium Chloride 0.9% 100 ml @ Per Protocol IV .Q0M [facility] Rx#:[id number] Propofol 1,000 mg In 100 69.087 89.496 ml @ Titrate IV .Q0M [facility] Rx#:[id number] cefTRIAXone 1,000 mg In 100 Sodium Chloride 0.9% 50 ml @ 100 mls/hr IVPB Q24HR [facility] Rx#:[id number] Tube Feeding 520 480 40 Other 120 Output: Chest Tube Drainage 90 Chest Tube Left Lateral 90 Chest Urine 665 545 60 Other: Voiding Method Indwelling Catheter Indwelling Catheter # Voids 35 ABP, PAP, CO, CI - Last Documented Arterial Blood Pressure 144/46 Pulmonary Artery Pressure 43/32 Cardiac Output 3.9 Cardiac Index 2.3 - Constitutional General appearance: Present: no acute distress - Respiratory Respiratory: bilateral: diminished - Cardiovascular Rhythm: regular Heart sounds: normal: S1, S2 - Labs CBC & Chem 7: 03/16/17 05:05 03/16/17 05:05 Labs: Abnormal Lab Results - Last 24 Hours (Table) 03/15/17 03/15/17 03/15/17 Range/Units 09:26 11:07 12:27 RBC (3.80-5.40) m/uL Hgb (11.4-16.0) gm/dL Hct (34.0-46.0) % MCV (80.0-100.0) fL MCH (25.0-35.0) pg MCHC (31.0-37.0) g/dL RDW (11.5-15.5) % Neutrophils # (Manual) (1.3-7.7) k/uL Lymphocytes # (Manual) (1.0-4.8) k/uL Nucleated RBCs (0-0) /100 WBC ABG pCO2 (35-45) mmHg Chloride (98-107) mmol/L BUN (7-17) mg/dL POC Glucose (mg/dL) 157 H 120 H 114 H (75-99) mg/dL Calcium (8.4-10.2) mg/dL Magnesium (1.6-2.3) mg/dL 03/15/17 03/15/17 03/15/17 Range/Units 13:57 15:03 17:01 RBC (3.80-5.40) m/uL Hgb (11.4-16.0) gm/dL Hct (34.0-46.0) % MCV (80.0-100.0) fL MCH (25.0-35.0) pg MCHC (31.0-37.0) g/dL RDW (11.5-15.5) % Neutrophils # (Manual) (1.3-7.7) k/uL Lymphocytes # (Manual) (1.0-4.8) k/uL Nucleated RBCs (0-0) /100 WBC ABG pCO2 (35-45) mmHg Chloride (98-107) mmol/L BUN (7-17) mg/dL POC Glucose (mg/dL) 141 H 132 H 131 H (75-99) mg/dL Calcium (8.4-10.2) mg/dL Magnesium (1.6-2.3) mg/dL 03/15/17 03/15/17 03/15/17 Range/Units 19:03 20:04 21:15 RBC (3.80-5.40) m/uL Hgb (11.4-16.0) gm/dL Hct (34.0-46.0) % MCV (80.0-100.0) fL MCH (25.0-35.0) pg MCHC (31.0-37.0) g/dL RDW (11.5-15.5) % Neutrophils # (Manual) (1.3-7.7) k/uL Lymphocytes # (Manual) (1.0-4.8) k/uL Nucleated RBCs (0-0) /100 WBC ABG pCO2 (35-45) mmHg Chloride (98-107) mmol/L BUN (7-17) mg/dL POC Glucose (mg/dL) 116 H 114 H 120 H (75-99) mg/dL Calcium (8.4-10.2) mg/dL Magnesium (1.6-2.3) mg/dL 03/15/17 03/15/17 03/16/17 Range/Units 22:09 23:01 00:00 RBC (3.80-5.40) m/uL Hgb (11.4-16.0) gm/dL Hct (34.0-46.0) % MCV (80.0-100.0) fL MCH (25.0-35.0) pg MCHC (31.0-37.0) g/dL RDW (11.5-15.5) % Neutrophils # (Manual) (1.3-7.7) k/uL Lymphocytes # (Manual) (1.0-4.8) k/uL Nucleated RBCs (0-0) /100 WBC ABG pCO2 (35-45) mmHg Chloride (98-107) mmol/L BUN (7-17) mg/dL POC Glucose (mg/dL) 130 H 144 H 139 H (75-99) mg/dL Calcium (8.4-10.2) mg/dL Magnesium (1.6-2.3) mg/dL 03/16/17 03/16/1717 Range/Units 00:59 01:57 03:10 RBC (3.80-5.40) m/uL Hgb (11.4-16.0) gm/dL Hct (34.0-46.0) % MCV (80.0-100.0) fL MCH (25.0-35.0) pg MCHC (31.0-37.0) g/dL RDW (11.5-15.5) % Neutrophils # (Manual) (1.3-7.7) k/uL Lymphocytes # (Manual) (1.0-4.8) k/uL Nucleated RBCs (0-0) /100 WBC ABG pCO2 (35-45) mmHg Chloride (98-107) mmol/L BUN (7-17) mg/dL POC Glucose (mg/dL) 143 H 126 H 117 H (75-99) mg/dL Calcium (8.4-10.2) mg/dL Magnesium (1.6-2.3) mg/dL 03/16/17 03/16/17 03/16/17 Range/Units 03:49 05:05 05:05 RBC 3.25 L (3.80-5.40) m/uL Hgb 7.7 L (11.4-16.0) gm/dL Hct 25.7 L (34.0-46.0) % MCV 79.1 L (80.0-100.0) fL MCH 23.5 L (25.0-35.0) pg MCHC 29.8 L (31.0-37.0) g/dL RDW 24.8 H (11.5-15.5) % Neutrophils # (Manual) 8.31 H (1.3-7.7) k/uL Lymphocytes # (Manual) 0.82 L (1.0-4.8) k/uL Nucleated RBCs 2 H (0-0) /100 WBC ABG pCO2 (35-45) mmHg Chloride 113 H (98-107) mmol/L BUN 64 H (7-17) mg/dL POC Glucose (mg/dL) 117 H (75-99) mg/dL Calcium 7.7 L (8.4-10.2) mg/dL Magnesium 2.8 H (1.6-2.3) mg/dL 03/16/17 03/16/17 03/16/17 Range/Units 05:08 06:13 07:01 RBC (3.80-5.40) m/uL Hgb (11.4-16.0) gm/dL Hct (34.0-46.0) % MCV (80.0-100.0) fL MCH (25.0-35.0) pg MCHC (31.0-37.0) g/dL RDW (11.5-15.5) % Neutrophils # (Manual) (1.3-7.7) k/uL Lymphocytes # (Manual) (1.0-4.8) k/uL Nucleated RBCs (0-0) /100 WBC ABG pCO2 (35-45) mmHg Chloride (98-107) mmol/L BUN (7-17) mg/dL POC Glucose (mg/dL) 105 H 128 H 122 H (75-99) mg/dL Calcium (8.4-10.2) mg/dL Magnesium (1.6-2.3) mg/dL 03/16/17 03/16/17 Range/Units 07:55 08:25 RBC (3.80-5.40) m/uL Hgb (11.4-16.0) gm/dL Hct (34.0-46.0) % MCV (80.0-100.0) fL MCH (25.0-35.0) pg MCHC (31.0-37.0) g/dL RDW (11.5-15.5) % Neutrophils # (Manual) (1.3-7.7) k/uL Lymphocytes # (Manual) (1.0-4.8) k/uL Nucleated RBCs (0-0) /100 WBC ABG pCO2 33 L (35-45) mmHg Chloride (98-107) mmol/L BUN (7-17) mg/dL POC Glucose (mg/dL) 123 H (75-99) mg/dL Calcium (8.4-10.2) mg/dL Magnesium (1.6-2.3) mg/dL Assessment and Plan Plan: Continue the current medical treatment which included dual antiplatelet therapy , metoprolol, lisinopril, digoxin and amiodarone. We might need to DC the digoxin down the line if the kidney function is deteriorating. The patient might go to have a PEG and trach tube later on today. An attempt to wean her is also going to happen today.
[2017-03-16] MEDS: LISINOPRIL 10 MG TAB PO SCH ×2 (10:01→20:05)
[2017-03-16 10:07] LABS: Glucose,Whole Blood 142 mg/dL (75-99)
--- NOTE | 2017-03-16 10:52 | P.PN ---
Subjective Principal diagnosis: Status post aortic valve replacement, postoperative day #11 76-year-old male patient is postop day #4 following aortic valve replacement. Patient also is known to have previous CVA, bronchial asthma, hyperlipidemia, diabetes and hypertension. Surgery was done for bicuspid aortic valve and the patient is status post aortic valve replacement, bioprosthetic valve. Postop, the patient developed some mediastinal bleeding with hypotension. Based on that the patient was taken back to the operating room to control the bleed and during the process the patient was given a total of 4 units of packed RBC, 2 units of fresh frozen plasma one unit of platelets. The patient was kept intubated on mechanical ventilator. As mentioned today's postop day #4 On today's evaluation, the patient remains on a mechanical ventilator. The patient is an assist-control mode of ventilation with a rate of 24, tidal volume 350, FiO2 of 60% and a PEEP of 10. She is intubated with a #8 ET tube. Chest x-ray from today shows adequate expansion of both lungs. Chest tubes are in place. ET tube is in place. She has some mild cardiomegaly. No sinus complaints or pleural effusions. No pneumothorax seen. The blood gases from this morning showed a pH of 7.38 with a pCO2 of 36 and pO2 of 76. Hemodynamically the patient is stable. The patient is producing adequate amount of urine output. The patient is on no pressors. The patient is on no clevidipine drip. Blood pressure is on under good control. The chest tubes are still in place. The patient has a right pleural and left pleural chest tube and 2 mediastinal chest tubes. All of them are showing minimal amount of drainage and the patient would have the mediastinal and the right sided chest tube pulled today. Platelet count improved and it's up to 148. Hemoglobin stable at 8.1. She is sedated with Diprivan. She is calm and comfortable. On 03/09/2017 the patient is still being seen in follow-up. The patient has been quite stable overnight. The patient is on a mechanical ventilator and based on the most is a vent changes she is on a rate of 24, tidal volume 450, FiO2 has been down to 40% and I cut down the PEEP down to 8 and then down to 5 cm of water. The patient's chest x-ray showing cardiomegaly and there is a component of pulmonary vessel congestion. The patient was given 20 mg of IV Lasix this morning. She is producing adequate amount of urine output. The mediastinal and the right pleural chest tube has been removed. The patient has a left pleural chest tube only. No fever. No chills. Tolerating tube feeds. No other significant events overnight. Blood gases from this morning showed a pH of 7.48 with a pCO2 of 29 and a pO2 of 83. Hemoglobin stable at 8.5. On 03/10/2017 the patient is being seen in follow-up. She was taken off sedation this morning and she was very slow in recovering from sedation. Despite being off the sedation for few hours, the patient is still lethargic. She is arousable and she can follow simple commands. She is not fully alert however. She remains on same vent settings overnight which included an assist- control of 24, tidal volume 450, FiO2 of 40% and a PEEP of 5. Blood gases from this morning showed a component of respiratory alkalosis. Chest x-ray shows cardiomegaly with pulmonary vascular congestion and the patient was given 20 mg of IV Lasix earlier by cardiothoracic surgery. Mediastinal and right pleural chest tube has been removed. The patient has a left-sided chest tube in place. Sternum stable clean and intact. No major edema in lower extremities. After being taken off sedation, check weaning parameters and the patient was becoming quite restless even on assist control mode of ventilation. She was becoming tachypneic and her minute ventilation was high. She was able to generate more than 400 mL of tidal volume and a support of 5 and a PEEP of 5. At that point, I made a decision to extubate this patient to a BiPAP at a pressure of 12/5 cm of water and FiO2 of 60%. One hour following extubation, blood gases was done and showed a pH of 7.42 with a pCO2 of 37 and pO2 of 76. She is still lethargic and somewhat sleepy. She is arousable however. She did have some hypertensive reaction for which she was given 5 g of IV Lopressor. She is a bit anxious and she'll be given 1 mg of Ativan. Additional dose of 40 because of Lasix will be given. I am inclined not to reintubate this patient. I'm trying to stabilize her condition to avoid reintubation. Note that she has a restrictive lung disease pH is obese. Her FVC and FEV1 were in the 55% of age preoperatively. Her lung volumes are small on today's chest x-ray. On 03/11/2017 the patient is being seen in follow-up. After being extubated for few hours the patient had to be intubated. Immediately after the intubation she had frothy rest or secretions with orotracheal tube and she was suspected to be in acute pulmonary edema. Based on that the patient with diuresis with IV Lasix and since then her fluid balance has been negative. She has diuresed another 1 L since yesterday. She is sedated on Diprivan and she is calm and comfortable. She is on a mechanical ventilator on assist control mode at the rate of 2, tidal volume 400, FiO2 of 40% and a PEEP of 7. The vent changes were adjusted this morning after I reviewed the blood gases and a chest x-ray. The chest x-ray shows some cardiomegaly and mild four-vessel congestion and a blood gas showed a pH of 7.42 with a pCO2 of 38 and pO2 136. Earlier this morning the patient was also having A dose of hypotension. His systolic blood pressure was dropping in the mid 80s. She was placed on norepinephrine infusion and was running at around 4-5 mics to maintain a mean artery pressure above 65. Cardiac rhythm is atrial fibrillation. She was having episodes of bradycardia and tachycardia. I noted on several occasions that the patient's backup pacemaker was discharging. At the rate is stage became tachycardic. CT surgery was involved and the patient was given digoxin 0.5 mg. She is currently ventricular paced at the rate of 65. The underlying rhythm was asystole. Note that she had gotten her metoprolol earlier this morning. She is back on her tube feeds and currently she is on vital high protein at the rate of 40 mL an hour. In terms of fluid balance, she is on IV D5 water at the rate of 40. Producing somewhere between 75 mL an hour of urine output. Afebrile. The patient is seen again today 03/12/2017 in follow-up in the intensive care unit. She remains intubated and on the mechanical ventilator. Currently in an assist-control mode with a rate of 12, tidal volume 400, FiO2 40 and a PEEP of 5. Morning blood gases reveal a P O2 of 74, pCO2 of 34 and a pH of 7.44. Today 's chest x-ray revealed overall stable findings, there is chronic parenchymal changes and cardiomegaly with patchy left basilar atelectasis. No new infiltrates are seen. She remains on norepinephrine at 3 mcg/m to maintain mean arterial pressure of 65 and greater. She is sedated on propofol at 35 mcg/ kg/m. She is on insulin drip at 5.5 units per hour. Her Vital high-protein tube feeds are currently on hold as the patient has been noticed to be pacemaker dependent and the plan is for insertion of a permanent pacemaker today. On 03/13/2017 the patient is being seen in follow-up in the intensive care unit. She is was sedated and she is calm and comfortable. Noted the patient underwent a pacemaker insertion yesterday for postoperative asystole. The patient postop developed a 50% pneumothorax on the left. A chest tube was inserted in the intensive care unit without any complication today's chest x- ray shows full expansion of the left lung without evidence of any pneumothorax or air leak. Meanwhile, the patient is still on a mechanical ventilator assist control mode with tidal volume 400, FiO2 of 50% and a PEEP of 5. The blood gases showed a pH of 7.5 with a pCO2 of 31 and pO2 of 60. Chest x-ray is showing thyromegaly and pulmonary vessel congestion. Sodium level is at 142. Hemoglobin is at 7.3 which is a gram lower compared to yesterday. A sedation holiday will be done and we'll check again the weaning parameters., Judgment the patient is not ready to wean yet. Oxidation is still borderline and there is not a whole lot of room for potential extubation on today's evaluation. She is tolerating her tube feeds. She is on 50 mics of the prevent. No fever. No chills. Sternum stable clean and intact. On 03/14/2017 the patient is being seen in follow-up in the intensive care units. She is calm and comfortable. She was given a sedation holiday and she woke up very appropriately today. She is following commands. She is still intubated on a mechanical ventilator. She is an assist-control mode at the rate of 12, FiO2 of 50%, tidal volume 400 and a PEEP of 5. Chest x-ray showing cardiomegaly, there is a left-sided chest tube in place without evidence of pneumothorax, ET tube is in a good location there is some mild pulmonary vascular congestion. The patient is on no pressors. Overnight she went into each of fibrillation with rapid ventricular response. She was placed on amiodarone drip. Note that she has a pacemaker in place as the patient went into complete asystole post AVR. She is producing adequate amount of urine output. Renal function is stable. There is Klebsiella growing in her sputum and based on that the patient be started on IV antibiotics. She is afebrile for now. No leukocytosis. Hemoglobin today is at 8.3. On 03/15/2017, patient remains on mechanical ventilation, earlier trial of weaning and holding sedation failed, patient was noted to be extremely agitated tachypneic and tachycardic, hence she had to be placed back on propofol, and back on assist control mode of mechanical ventilation. Patient is arousable, follows simple instructions, but clearly her gases are marginal, and her weaning parameters are poor considering her extreme agitation once off sedation. Her ventilator settings were reviewed, she is presently on FiO2 of 45 %, tidal volume of 400, PEEP of 5. Her flow rate is about 60 L/m, and that gives us an inspiratory and expiratory ratio of 1:2. ABG showed a pO2 of 66 pCO2 of 28 pH of 7.50, hence I cut down her before meals rate to 16. Her FiO2 is now 45% instead of 40%. CBC showed the PEEP cigar of 11.8 hemoglobin of 7.9. BUN is 65 creatinine of 1.09. Gram stain of the sputum and culture showed Klebsiella oxytoca patient is on Rocephin. On 03/16/2017, patient remains on mechanical ventilation, I went ahead and stopped her propofol, patient seems to be appropriate, follows simple instructions, but she seems to be generally weak and frail. I would proceed later with pressure support and CPAP, and if she gets agitated may utilize a Precedex. Reviewed her labs, ABG showed a pO2 of 85 pCO2 of 53 3 pH of 7.42. Hemoglobin is 7.7, renal profile showed a BUN of 64 creatinine of 1.0. Chest x- ray showed mostly by basilar opacities and strongly suspicious for atelectasis. Doubt underlying pneumonia. Objective - Vital Signs Vital signs: Vital Signs Temp 97.6 F 03/16/17 08:00 Pulse 69 03/16/17 10:00 Resp 26 H 03/16/17 10:00 BP 105/48 03/14/17 10:00 Pulse Ox 94 L 03/16/17 10:00 Intake & Output 03/15/17 03/16/17 03/16/17 18:59 06:59 18:59 Intake Total 1128.077 901.620 462.416 Output Total 755 545 205 Balance 373.077 356.620 257.416 Weight 90.3 kg 87.8 kg Intake: IV 270 276 92 Sodium Chloride 0.9% 1, 240 240 80 000 ml @ 20 mls/hr IV . Q24H [facility] Rx#:[id number] pressure bag 30 36 12 Intake, IV Titration 218.077 145.620 110.416 Amount Insulin Regular 100 unit 48.990 56.124 10.416 In Sodium Chloride 0.9% 100 ml @ Per Protocol IV .Q0M [facility] Rx#:[id number] Propofol 1,000 mg In 100 69.087 89.496 ml @ Titrate IV .Q0M [facility] Rx#:[id number] cefTRIAXone 1,000 mg In 100 100 Sodium Chloride 0.9% 50 ml @ 100 mls/hr IVPB Q24HR [facility] Rx#:[id number] Tube Feeding 520 480 160 Other 120 100 Output: Chest Tube Drainage 90 0 Chest Tube Left Lateral 90 0 Chest Urine 665 545 205 Other: Voiding Method Indwelling Catheter Indwelling Catheter Indwelling Catheter # Voids 35 ABP, PAP, CO, CI - Last Documented Arterial Blood Pressure 162/56 Pulmonary Artery Pressure 43/32 Cardiac Output 3.9 Cardiac Index 2.3 - Exam Physical Exam: Revealed a 76-year-old female on mechanical ventilation, looks generally frail and weak, pale, in no distress. HEENT:[Neck is supple.] [No neck masses.] [No thyromegaly.] [No JVD.]. Endotracheal tube and orogastric tube seemed to be intact. Chest: [Extremely diminished breath sounds at the bases, no crackles or rhonchi or wheezes..] Cardiac Exam: [Normal S1 and S2, no S3 gallop, no murmur.] Abdomen: [Soft, nontender, no megaly, no rebound, no guarding, normal bowel sounds.] Extremities: [No clubbing, 2+ bipedal edema, no cyanosis.] Neurological Exam: [No focal neurologic deficit.] However, the patient seems to be generally weak with mostly proximal weakness of her muscles. - Labs CBC & Chem 7: 03/16/17 05:05 03/16/17 05:05 Labs: Abnormal Lab Results - Last 24 Hours (Table) 03/15/17 03/15/17 03/15/17 Range/Units 11:07 12:27 13:57 RBC (3.80-5.40) m/uL Hgb (11.4-16.0) gm/dL Hct (34.0-46.0) % MCV (80.0-100.0) fL MCH (25.0-35.0) pg MCHC (31.0-37.0) g/dL RDW (11.5-15.5) % Neutrophils # (Manual) (1.3-7.7) k/uL Lymphocytes # (Manual) (1.0-4.8) k/uL Nucleated RBCs (0-0) /100 WBC ABG pCO2 (35-45) mmHg Chloride (98-107) mmol/L BUN (7-17) mg/dL POC Glucose (mg/dL) 120 H 114 H 141 H (75-99) mg/dL Calcium (8.4-10.2) mg/dL Magnesium (1.6-2.3) mg/dL 03/15/17 03/15/17 03/15/17 Range/Units 15:03 17:01 19:03 RBC (3.80-5.40) m/uL Hgb (11.4-16.0) gm/dL Hct (34.0-46.0) % MCV (80.0-100.0) fL MCH (25.0-35.0) pg MCHC (31.0-37.0) g/dL RDW (11.5-15.5) % Neutrophils # (Manual) (1.3-7.7) k/uL Lymphocytes # (Manual) (1.0-4.8) k/uL Nucleated RBCs (0-0) /100 WBC ABG pCO2 (35-45) mmHg Chloride (98-107) mmol/L BUN (7-17) mg/dL POC Glucose (mg/dL) 132 H 131 H 116 H (75-99) mg/dL Calcium (8.4-10.2) mg/dL Magnesium (1.6-2.3) mg/dL 03/15/17 03/15/17 03/15/17 Range/Units 20:04 21:15 22:09 RBC (3.80-5.40) m/uL Hgb (11.4-16.0) gm/dL Hct (34.0-46.0) % MCV (80.0-100.0) fL MCH (25.0-35.0) pg MCHC (31.0-37.0) g/dL RDW (11.5-15.5) % Neutrophils # (Manual) (1.3-7.7) k/uL Lymphocytes # (Manual) (1.0-4.8) k/uL Nucleated RBCs (0-0) /100 WBC ABG pCO2 (35-45) mmHg Chloride (98-107) mmol/L BUN (7-17) mg/dL POC Glucose (mg/dL) 114 H 120 H 130 H (75-99) mg/dL Calcium (8.4-10.2) mg/dL Magnesium (1.6-2.3) mg/dL 03/15/17 03/16/17 03/16/17 Range/Units 23:01 00:00 00:59 RBC (3.80-5.40) m/uL Hgb (11.4-16.0) gm/dL Hct (34.0-46.0) % MCV (80.0-100.0) fL MCH (25.0-35.0) pg MCHC (31.0-37.0) g/dL RDW (11.5-15.5) % Neutrophils # (Manual) (1.3-7.7) k/uL Lymphocytes # (Manual) (1.0-4.8) k/uL Nucleated RBCs (0-0) /100 WBC ABG pCO2 (35-45) mmHg Chloride (98-107) mmol/L BUN (7-17) mg/dL POC Glucose (mg/dL) 144 H 139 H 143 H (75-99) mg/dL Calcium (8.4-10.2) mg/dL Magnesium (1.6-2.3) mg/dL 03/16/17 03/16/17 03/16/17 Range/Units 01:57 03:10 03:49 RBC (3.80-5.40) m/uL Hgb (11.4-16.0) gm/dL Hct (34.0-46.0) % MCV (80.0-100.0) fL MCH (25.0-35.0) pg MCHC (31.0-37.0) g/dL RDW (11.5-15.5) % Neutrophils # (Manual) (1.3-7.7) k/uL Lymphocytes # (Manual) (1.0-4.8) k/uL Nucleated RBCs (0-0) /100 WBC ABG pCO2 (35-45) mmHg Chloride (98-107) mmol/L BUN (7-17) mg/dL POC Glucose (mg/dL) 126 H 117 H 117 H (75-99) mg/dL Calcium (8.4-10.2) mg/dL Magnesium (1.6-2.3) mg/dL 03/16/17 03/16/17 03/16/17 Range/Units 05:05 05:05 05:08 RBC 3.25 L (3.80-5.40) m/uL Hgb 7.7 L (11.4-16.0) gm/dL Hct 25.7 L (34.0-46.0) % MCV 79.1 L (80.0-100.0) fL MCH 23.5 L (25.0-35.0) pg MCHC 29.8 L (31.0-37.0) g/dL RDW 24.8 H (11.5-15.5) % Neutrophils # (Manual) 8.31 H (1.3-7.7) k/uL Lymphocytes # (Manual) 0.82 L (1.0-4.8) k/uL Nucleated RBCs 2 H (0-0) /100 WBC ABG pCO2 (35-45) mmHg Chloride 113 H (98-107) mmol/L BUN 64 H (7-17) mg/dL POC Glucose (mg/dL) 105 H (75-99) mg/dL Calcium 7.7 L (8.4-10.2) mg/dL Magnesium 2.8 H (1.6-2.3) mg/dL 03/16/17 03/16/1717 Range/Units 06:13 07:01 07:55 RBC (3.80-5.40) m/uL Hgb (11.4-16.0) gm/dL Hct (34.0-46.0) % MCV (80.0-100.0) fL MCH (25.0-35.0) pg MCHC (31.0-37.0) g/dL RDW (11.5-15.5) % Neutrophils # (Manual) (1.3-7.7) k/uL Lymphocytes # (Manual) (1.0-4.8) k/uL Nucleated RBCs (0-0) /100 WBC ABG pCO2 (35-45) mmHg Chloride (98-107) mmol/L BUN (7-17) mg/dL POC Glucose (mg/dL) 128 H 122 H 123 H (75-99) mg/dL Calcium (8.4-10.2) mg/dL Magnesium (1.6-2.3) mg/dL 03/16/17 03/16/17 Range/Units 08:25 10:01 RBC (3.80-5.40) m/uL Hgb (11.4-16.0) gm/dL Hct (34.0-46.0) % MCV (80.0-100.0) fL MCH (25.0-35.0) pg MCHC (31.0-37.0) g/dL RDW (11.5-15.5) % Neutrophils # (Manual) (1.3-7.7) k/uL Lymphocytes # (Manual) (1.0-4.8) k/uL Nucleated RBCs (0-0) /100 WBC ABG pCO2 33 L (35-45) mmHg Chloride (98-107) mmol/L BUN (7-17) mg/dL POC Glucose (mg/dL) 142 H (75-99) mg/dL Calcium (8.4-10.2) mg/dL Magnesium (1.6-2.3) mg/dL Assessment and Plan Plan: 1 aortic valve replacement for severe bicuspid aortic valve stenosis, patient is postop day #11 2 postoperative mediastinal bleeding, recovered 3 postoperative cardiac arrhythmia, asystole, status post insertion of a pacemaker. 4 acute hypoxic respiratory failure, expected outcome of surgery. The patient failed a trial of extubation approximately a few days ago. Subsequently, there were no weaning trials done as the patient was considered to be on stable for weaning. This morning, the patient is much more awake and stabilized and hemodynamically she is doing well. Chest x-ray was reviewed. Blood gases was reviewed. We'll continue weaning trials on a daily basis, patient will be given another weaning trial today if possible. 5 iatrogenic left-sided pneumothorax status post chest tube insertion with successful expansion of the left lung without evidence of any air leak. 6 hypertension, history of 7 CVA/TIA, history of 8 bronchial asthma, history of 9 obesity 10 restrictive lung physiology on preop spirometry with an FEV1 of 56% of predicted. 11 thrombocytopenia, recovered 12 postoperative anemia, expected, hemoglobin is at 7.7 Recommendation: Continue patient on mechanical ventilation, patient will be given most likely another weaning trial today utilizing pressure support and CPAP, we'll continue bronchodilators, antibiotics, continue GI and DVT prophylaxis, discussed her condition with the nursing staff and with Dr mae at bedside. Clearly the patient demonstrates failure to wean and failure to extubate, we should seriously consider planning for tracheostomy in the next 24- 48 hours. Critical care time is 35 minutes. Time with Patient: Greater than 30
[2017-03-16 11:15] LABS: ABG Base Excess -2.6 mmol/L; ABG HCO3 21 mmol/L (21-25); ABG PCO2 30 mmHg (35-45); ABG PH 7.46 (7.35-7.45); ABG PO2 91 mmHg (83-108); ABG TCO2 22 mmol/L (19-24)
[2017-03-16] MEDS: SODIUM CHLORIDE 0.9% 1,000 ML IV SCH (12:16)
[2017-03-16] MEDS: CYANOCOBALAMIN 500 MCG TAB PO SCH (12:16)
[2017-03-16] MEDS: CLEVIDIPINE BUTYRATE 25 MG in EMPTY BAG 1 BAG IV SCH (12:17)
[2017-03-16 12:20] LABS: Glucose,Whole Blood 121 mg/dL (75-99)
[2017-03-16] MEDS: MORPHINE SULFATE 2 MG/ML SYRINGE IVP PRN ×2 (12:27→20:37)
[2017-03-16] MEDS: INSULIN REGULAR 100 UNIT in SODIUM CHLORIDE 0.9% 100 ML IV SCH (12:33)
[2017-03-16] MEDS: DEXMEDETOMIDINE/0.9% NACL(PMX) 400 MCG in EMPTY BAG 1 BAG IV SCH ×2 (15:28→23:37)
[2017-03-16 15:35] LABS: Glucose,Whole Blood 117 mg/dL (75-99)
--- NOTE | 2017-03-16 15:41 | P.PN ---
Subjective Principal diagnosis: Bicuspid aortic valve with critical aortic stenosis, aortic insufficiency. CAD. Diabetes mellitus. Hypertension. History of TIAs, neuropathy, pericarditis, scoliosis, brain concussion. History of paroxysmal atrial fibrillation POD #8 elective aortic valve replacement with #25 mm magna ease bioprosthetic aortic valve, a clip ligation into left atrial appendage with a #35 mm AtriClip and intraoperative transesophageal echocardiogram. Postoperative acute blood loss anemia, a potential expected outcome of surgery. POD #8 reexploration of the chest, evacuation of clot, control of bleed. Postoperative hypoxic respiratory failure requiring prolonged mechanical ventilation, a potential expected outcome of surgery. POD #6 placement of right pleural chest tube for pleural effusion Postoperative hypovolemic shock, inherent to the surgery Postoperative paroxysmal atrial fibrillation, and expected outcome of surgery POD #4 dual-chamber pacemaker insertion, transvenous under fluoroscopic vision for sick sinus syndrome versus asystole, inherent to aortic valve surgery. POD #4 placement of left pleural chest tube for left pneumothorax as a result of pacemaker placement, inherent to the surgery. Sputum culture positive for Klebsiella, antibiotics per pulmonology. Currently sedated on mechanical ventilation. Weaning trial attempted again today but patient again became tachypneic and hypertensive. Objective - Vital Signs Vital signs: Vital Signs Temp 97.6 F 03/16/17 08:00 Pulse 70 03/16/17 11:58 Resp 26 H 03/16/17 10:00 BP 105/48 03/14/17 10:00 Pulse Ox 94 L 03/16/17 10:00 Intake & Output 03/15/17 03/16/17 03/16/17 18:59 06:59 18:59 Intake Total 1128.077 901.620 525.416 Output Total 755 545 255 Balance 373.077 356.620 270.416 Weight 90.3 kg 87.8 kg Intake: IV 270 276 115 Sodium Chloride 0.9% 1, 240 240 100 000 ml @ 20 mls/hr IV . Q24H [facility] Rx#:[id number] pressure bag 30 36 15 Intake, IV Titration 218.077 145.620 110.416 Amount Insulin Regular 100 unit 48.990 56.124 10.416 In Sodium Chloride 0.9% 100 ml @ Per Protocol IV .Q0M [facility] Rx#:[id number] Propofol 1,000 mg In 100 69.087 89.496 ml @ Titrate IV .Q0M [facility] Rx#:[id number] cefTRIAXone 1,000 mg In 100 100 Sodium Chloride 0.9% 50 ml @ 100 mls/hr IVPB Q24HR [facility] Rx#:[id number] Tube Feeding 520 480 200 Other 120 100 Output: Chest Tube Drainage 90 0 Chest Tube Left Lateral 90 0 Chest Urine 665 545 255 Other: Voiding Method Indwelling Catheter Indwelling Catheter Indwelling Catheter # Voids 35 ABP, PAP, CO, CI - Last Documented Arterial Blood Pressure 162/56 Pulmonary Artery Pressure 43/32 Cardiac Output 3.9 Cardiac Index 2.3 - Constitutional General appearance: Present: no acute distress - Respiratory Details: Lungs sounds diminished bilaterally. Respirations even, nonlabored on mechanical ventilation. Current settings assist control mode, FiO2 45%, tidal 400, respiratory rate 16, PEEP 5. Left pleural chest tube to -20 cm wall suction, no drainage noted in 24 hours. No air leak present. - Cardiovascular Details: S1, S2 present. Paced rhythm. Sternum stable. Heart hugger in place. Teds/ SCDs present. Trace generalized edema still present. Palpable pulses bilaterally. - Gastrointestinal Gastrointestinal Comment(s): Abdomen soft, nontender, nondistended. Active bowel sounds 4 quadrants. OG tube present, tolerating vital tube feedings at 40 mL per hour. - Genitourinary Genitourinary Comment(s): Cuellar present draining clear, yellow urine. - Integumentary Integumentary Comment(s): Anterior chest sternal incision is well approximated with Dermabond. Left anterior chest wall pacemaker site well approximated with Steri-Strips and covered with occlusive dressing. - Musculoskeletal Musculoskeletal: Present: generalized weakness - Psychiatric Psychiatric Comment(s): Does open eyes and follow commands off sedation however is very weak, unable to grasp hands but can lift both arms off the bed. Does nod/shake head appropriately. - Allied health notes Allied health notes reviewed: nursing - Labs CBC & Chem 7: 03/16/17 05:05 03/16/17 05:05 Labs: Abnormal Lab Results - Last 24 Hours (Table) 03/15/17 03/15/17 03/15/17 Range/Units 17:01 19:03 20:04 RBC (3.80-5.40) m/uL Hgb (11.4-16.0) gm/dL Hct (34.0-46.0) % MCV (80.0-100.0) fL MCH (25.0-35.0) pg MCHC (31.0-37.0) g/dL RDW (11.5-15.5) % Neutrophils # (Manual) (1.3-7.7) k/uL Lymphocytes # (Manual) (1.0-4.8) k/uL Nucleated RBCs (0-0) /100 WBC ABG pH (7.35-7.45) ABG pCO2 (35-45) mmHg ABG O2 Saturation (94-97) % Chloride (98-107) mmol/L BUN (7-17) mg/dL POC Glucose (mg/dL) 131 H 116 H 114 H (75-99) mg/dL Calcium (8.4-10.2) mg/dL Magnesium (1.6-2.3) mg/dL 03/15/17 03/15/17 03/15/17 Range/Units 21:15 22:09 23:01 RBC (3.80-5.40) m/uL Hgb (11.4-16.0) gm/dL Hct (34.0-46.0) % MCV (80.0-100.0) fL MCH (25.0-35.0) pg MCHC (31.0-37.0) g/dL RDW (11.5-15.5) % Neutrophils # (Manual) (1.3-7.7) k/uL Lymphocytes # (Manual) (1.0-4.8) k/uL Nucleated RBCs (0-0) /100 WBC ABG pH (7.35-7.45) ABG pCO2 (35-45) mmHg ABG O2 Saturation (94-97) % Chloride (98-107) mmol/L BUN (7-17) mg/dL POC Glucose (mg/dL) 120 H 130 H 144 H (75-99) mg/dL Calcium (8.4-10.2) mg/dL Magnesium (1.6-2.3) mg/dL 03/16/17 03/16/17 03/16/17 Range/Units 00:00 00:59 01:57 RBC (3.80-5.40) m/uL Hgb (11.4-16.0) gm/dL Hct (34.0-46.0) % MCV (80.0-100.0) fL MCH (25.0-35.0) pg MCHC (31.0-37.0) g/dL RDW (11.5-15.5) % Neutrophils # (Manual) (1.3-7.7) k/uL Lymphocytes # (Manual) (1.0-4.8) k/uL Nucleated RBCs (0-0) /100 WBC ABG pH (7.35-7.45) ABG pCO2 (35-45) mmHg ABG O2 Saturation (94-97) % Chloride (98-107) mmol/L BUN (7-17) mg/dL POC Glucose (mg/dL) 139 H 143 H 126 H (75-99) mg/dL Calcium (8.4-10.2) mg/dL Magnesium (1.6-2.3) mg/dL 03/16/17 03/16/17 03/16/17 Range/Units 03:10 03:49 05:05 RBC 3.25 L (3.80-5.40) m/uL Hgb 7.7 L (11.4-16.0) gm/dL Hct 25.7 L (34.0-46.0) % MCV 79.1 L (80.0-100.0) fL MCH 23.5 L (25.0-35.0) pg MCHC 29.8 L (31.0-37.0) g/dL RDW 24.8 H (11.5-15.5) % Neutrophils # (Manual) 8.31 H (1.3-7.7) k/uL Lymphocytes # (Manual) 0.82 L (1.0-4.8) k/uL Nucleated RBCs 2 H (0-0) /100 WBC ABG pH (7.35-7.45) ABG pCO2 (35-45) mmHg ABG O2 Saturation (94-97) % Chloride (98-107) mmol/L BUN (7-17) mg/dL POC Glucose (mg/dL) 117 H 117 H (75-99) mg/dL Calcium (8.4-10.2) mg/dL Magnesium (1.6-2.3) mg/dL 03/16/17 03/16/17 03/16/17 Range/Units 05:05 05:08 06:13 RBC (3.80-5.40) m/uL Hgb (11.4-16.0) gm/dL Hct (34.0-46.0) % MCV (80.0-100.0) fL MCH (25.0-35.0) pg MCHC (31.0-37.0) g/dL RDW (11.5-15.5) % Neutrophils # (Manual) (1.3-7.7) k/uL Lymphocytes # (Manual) (1.0-4.8) k/uL Nucleated RBCs (0-0) /100 WBC ABG pH (7.35-7.45) ABG pCO2 (35-45) mmHg ABG O2 Saturation (94-97) % Chloride 113 H (98-107) mmol/L BUN 64 H (7-17) mg/dL POC Glucose (mg/dL) 105 H 128 H (75-99) mg/dL Calcium 7.7 L (8.4-10.2) mg/dL Magnesium 2.8 H (1.6-2.3) mg/dL 03/16/17 03/16/17 03/16/17 Range/Units 07:01 07:55 08:25 RBC (3.80-5.40) m/uL Hgb (11.4-16.0) gm/dL Hct (34.0-46.0) % MCV (80.0-100.0) fL MCH (25.0-35.0) pg MCHC (31.0-37.0) g/dL RDW (11.5-15.5) % Neutrophils # (Manual) (1.3-7.7) k/uL Lymphocytes # (Manual) (1.0-4.8) k/uL Nucleated RBCs (0-0) /100 WBC ABG pH (7.35-7.45) ABG pCO2 33 L (35-45) mmHg ABG O2 Saturation (94-97) % Chloride (98-107) mmol/L BUN (7-17) mg/dL POC Glucose (mg/dL) 122 H 123 H (75-99) mg/dL Calcium (8.4-10.2) mg/dL Magnesium (1.6-2.3) mg/dL 03/16/17 03/16/17 03/16/17 Range/Units 10:01 11:04 12:12 RBC (3.80-5.40) m/uL Hgb (11.4-16.0) gm/dL Hct (34.0-46.0) % MCV (80.0-100.0) fL MCH (25.0-35.0) pg MCHC (31.0-37.0) g/dL RDW (11.5-15.5) % Neutrophils # (Manual) (1.3-7.7) k/uL Lymphocytes # (Manual) (1.0-4.8) k/uL Nucleated RBCs (0-0) /100 WBC ABG pH 7.46 H (7.35-7.45) ABG pCO2 30 L (35-45) mmHg ABG O2 Saturation 98.0 H (94-97) % Chloride (98-107) mmol/L BUN (7-17) mg/dL POC Glucose (mg/dL) 142 H 121 H (75-99) mg/dL Calcium (8.4-10.2) mg/dL Magnesium (1.6-2.3) mg/dL - Imaging and Cardiology Chest x-ray: report reviewed, image reviewed Assessment and Plan (1) History of TIA (transient ischemic attack) Status: Acute (2) Hyperlipidemia Status: Acute (3) Osteoarthritis Status: Acute (4) Acute blood loss as cause of postoperative anemia Status: Acute (5) Paroxysmal atrial fibrillation Status: Acute (6) Status post aortic valve replacement Status: Acute (7) Bicuspid aortic valve Status: Acute (8) Diabetes mellitus, insulin dependent (IDDM), controlled Status: Acute (9) Hypertension Status: Acute (10) Severe aortic stenosis Status: Acute Plan: 1. Continue aspirin, Plavix, beta daysi, JENNIFER inhibitor. Statin on hold secondary to elevated liver enzymes, will restart when able. Will maximize beta daysi therapy as able. Continue amiodarone for A. fib prophylaxis. 2. Wean O2 as tolerated. Ventilatory support per pulmonary services. If she continues to be unable to wean from the ventilator, may need a trach and PEG in the near future. Sputum culture positive for Klebsiella, continue ceftriaxone per pulmonary services. 3. Check residual from OG tube every 4 hours. 4. Continue Cuellar for strict accurate intake and output. 5. Monitor daily labs, chest x-rays. 6. GI/DVT prophylaxis. 7. Insulin management per primary service. 8. More recommendations as patient progresses.
[2017-03-16 17:28] LABS: Glucose,Whole Blood 104 mg/dL (75-99)
[2017-03-16 19:02] LABS: Glucose,Whole Blood 144 mg/dL (75-99)
[2017-03-16] MEDS: SENNOSIDES-DOCUSATE SODIUM 1 EACH TAB PO SCH (20:05)
[2017-03-16 22:15] LABS: Glucose,Whole Blood 106 mg/dL (75-99)
[2017-03-16 23:57] LABS: Glucose,Whole Blood 124 mg/dL (75-99)
[2017-03-17 00:08] LABS: Glucose,Whole Blood 120 mg/dL (75-99)
[2017-03-17 02:10] LABS: Glucose,Whole Blood 95 mg/dL (75-99)
[2017-03-17] MEDS: IPRATROPIUM-ALBUTEROL 3 ML NEB INHALATION SCH ×4 (03:24→16:07)
[2017-03-17] MEDS: MORPHINE SULFATE 2 MG/ML SYRINGE IVP PRN ×2 (03:31→08:52)
[2017-03-17 04:04] LABS: Glucose,Whole Blood 170 mg/dL (75-99)
[2017-03-17 04:15] LABS: Anisocytosis Marked; Basophils % (A) 0 %; CH 24.5; CHCM 30.7; Eosinophils # (A) 0.2 k/uL (0-0.7); Eosinophils % (A) 2 %; HDW 3.96; HGB 8.1 gm/dL (11.4-16.0); Hypochromasia Marked; Luc # (Auto) 0.14; Luc % (Auto) 1; Lymphocytes % (A) 10 %; MCH 24.1 pg (25.0-35.0); MCHC 29.8 g/dL (31.0-37.0); MCV 80.7 fL (80.0-100.0); Mean Platelet Volume 8.8; Microcytosis Moderate; Monocytes # (A) 0.6 k/uL (0-1.0); Monocytes % (A) 6 %; Neutrophils # (A) 8.4 k/uL (1.3-7.7); Neutrophils % (A) 81 %; Poikilocytosis Slight; RBC 3.35 m/uL (3.80-5.40); RDW 24.6 % (11.5-15.5); WBC 10.4 k/uL (3.8-10.6); WBC (Perox) 10.52
[2017-03-17 04:26] LABS: Anion Gap 8 mmol/L; Blood Urea Nitrogen 64 mg/dL (7-17); Calcium 7.9 mg/dL (8.4-10.2); Carbon Dioxide 22 mmol/L (22-30); Chloride 113 mmol/L (98-107); Glucose 149 mg/dL (74-99); Magnesium 2.9 mg/dL (1.6-2.3); Non-African American GFR(MDRD) >60 (>60 ml/min/1.73 sqM); Phosphorous 4.5 mg/dL (2.5-4.5); Potassium 4.5 mmol/L (3.5-5.1); Sodium 143 mmol/L (137-145)
[2017-03-17] MEDS: HEPARIN SODIUM,PORCINE 5,000 UNIT/ML 1 ML VIAL SQ SCH ×3 (05:46→21:00)
[2017-03-17] MEDS: OFLOXACIN 0.3% OPHTH DROPS 5 ML BOTTLE RIGHT EYE SCH ×4 (05:46→23:03)
[2017-03-17] MEDS: prednisoLONE ACETATE 1% OPHTH DROPS 1 ML BTL RIGHT EYE SCH ×4 (05:46→23:03)
[2017-03-17] MEDS: DEXMEDETOMIDINE/0.9% NACL(PMX) 400 MCG in EMPTY BAG 1 BAG IV SCH (05:47)
[2017-03-17 06:12] LABS: Glucose,Whole Blood 153 mg/dL (75-99)
--- NOTE | 2017-03-17 07:53 | P.PN ---
Subjective Principal diagnosis: Postop day #3 for aortic valve repair. This continue present illness an 6-year-old white female essentially admitted for bicuspid aortic valve repair. The patient has been slowly improving but has a significant martinez course postoperatively. She is slowly improving as far as weaning ability. However, PEG tube with tracheostomy is still possible. I' m continue to follow with consultants. Objective - Vital Signs Vital signs: Vital Signs Temp 97.4 F L 03/17/17 04:00 Pulse 69 03/17/17 07:00 Resp 23 03/17/17 07:00 BP 105/48 03/14/17 10:00 Pulse Ox 98 03/17/17 07:00 Intake & Output 03/16/17 03/17/17 03/17/17 18:59 06:59 18:59 Intake Total 1539.456 2089.127 63 Output Total 645 1005 60 Balance 448.235 180.127 3 Weight 89 kg Intake: IV 264 276 23 Sodium Chloride 0.9% 1, 240 240 20 000 ml @ 20 mls/hr IV . Q24H [facility] Rx#:[id number] pressure bag 24 36 3 Intake, IV Titration 129.235 169.127 Amount Dexmedetomidine/0.9% NaCl 1.463 134.503 (Pmx) 400 mcg In Empty Bag 1 bag @ Titrate IV . Q0M [facility] Rx#:[id number] Insulin Regular 100 unit 27.772 34.624 In Sodium Chloride 0.9% 100 ml @ Per Protocol IV .Q0M [facility] Rx#:[id number] cefTRIAXone 1,000 mg In 100 Sodium Chloride 0.9% 50 ml @ 100 mls/hr IVPB Q24HR [facility] Rx#:[id number] Tube Feeding 480 560 40 Other 220 180 Output: Chest Tube Drainage 0 0 Chest Tube Left Lateral 0 0 Chest Urine 645 1005 60 Other: Voiding Method Indwelling Catheter Indwelling Catheter ABP, PAP, CO, CI - Last Documented Arterial Blood Pressure 157/62 Pulmonary Artery Pressure 43/32 Cardiac Output 3.9 Cardiac Index 2.3 - Constitutional General appearance: Present: average body habitus - EENT Eyes: Absent: abnormal pupil - Respiratory Respiratory: bilateral: diminished - Cardiovascular Rhythm: regular Heart sounds: normal: S1, S2 - Gastrointestinal General gastrointestinal: Present: soft. Absent: tenderness - Psychiatric Psychiatric: Absent: A&O x's 3, intact judgment & insight - Labs CBC & Chem 7: 03/17/17 04:00 03/17/17 04:00 Labs: Abnormal Lab Results - Last 24 Hours (Table) 03/16/17 03/16/17 03/16/17 Range/Units 07:55 08:25 10:01 RBC (3.80-5.40) m/uL Hgb (11.4-16.0) gm/dL Hct (34.0-46.0) % MCH (25.0-35.0) pg MCHC (31.0-37.0) g/dL RDW (11.5-15.5) % Neutrophils # (1.3-7.7) k/uL ABG pH (7.35-7.45) ABG pCO2 33 L (35-45) mmHg ABG O2 Saturation (94-97) % Chloride (98-107) mmol/L BUN (7-17) mg/dL Glucose (74-99) mg/dL POC Glucose (mg/dL) 123 H 142 H (75-99) mg/dL Calcium (8.4-10.2) mg/dL Magnesium (1.6-2.3) mg/dL 03/16/17 03/16/17 03/16/17 Range/Units 11:04 12:12 15:32 RBC (3.80-5.40) m/uL Hgb (11.4-16.0) gm/dL Hct (34.0-46.0) % MCH (25.0-35.0) pg MCHC (31.0-37.0) g/dL RDW (11.5-15.5) % Neutrophils # (1.3-7.7) k/uL ABG pH 7.46 H (7.35-7.45) ABG pCO2 30 L (35-45) mmHg ABG O2 Saturation 98.0 H (94-97) % Chloride (98-107) mmol/L BUN (7-17) mg/dL Glucose (74-99) mg/dL POC Glucose (mg/dL) 121 H 117 H (75-99) mg/dL Calcium (8.4-10.2) mg/dL Magnesium (1.6-2.3) mg/dL 03/16/17 03/16/1717 Range/Units 17:27 19:01 22:13 RBC (3.80-5.40) m/uL Hgb (11.4-16.0) gm/dL Hct (34.0-46.0) % MCH (25.0-35.0) pg MCHC (31.0-37.0) g/dL RDW (11.5-15.5) % Neutrophils # (1.3-7.7) k/uL ABG pH (7.35-7.45) ABG pCO2 (35-45) mmHg ABG O2 Saturation (94-97) % Chloride (98-107) mmol/L BUN (7-17) mg/dL Glucose (74-99) mg/dL POC Glucose (mg/dL) 104 H 144 H 106 H (75-99) mg/dL Calcium (8.4-10.2) mg/dL Magnesium (1.6-2.3) mg/dL 03/16/17 03/17/17 03/17/17 Range/Units 23:55 00:07 04:00 RBC 3.35 L (3.80-5.40) m/uL Hgb 8.1 L (11.4-16.0) gm/dL Hct 27.0 L (34.0-46.0) % MCH 24.1 L (25.0-35.0) pg MCHC 29.8 L (31.0-37.0) g/dL RDW 24.6 H (11.5-15.5) % Neutrophils # 8.4 H (1.3-7.7) k/uL ABG pH (7.35-7.45) ABG pCO2 (35-45) mmHg ABG O2 Saturation (94-97) % Chloride (98-107) mmol/L BUN (7-17) mg/dL Glucose (74-99) mg/dL POC Glucose (mg/dL) 124 H 120 H (75-99) mg/dL Calcium (8.4-10.2) mg/dL Magnesium (1.6-2.3) mg/dL 03/17/17 03/17/17 03/17/17 Range/Units 04:00 04:02 06:10 RBC (3.80-5.40) m/uL Hgb (11.4-16.0) gm/dL Hct (34.0-46.0) % MCH (25.0-35.0) pg MCHC (31.0-37.0) g/dL RDW (11.5-15.5) % Neutrophils # (1.3-7.7) k/uL ABG pH (7.35-7.45) ABG pCO2 (35-45) mmHg ABG O2 Saturation (94-97) % Chloride 113 H (98-107) mmol/L BUN 64 H (7-17) mg/dL Glucose 149 H (74-99) mg/dL POC Glucose (mg/dL) 170 H 153 H (75-99) mg/dL Calcium 7.9 L (8.4-10.2) mg/dL Magnesium 2.9 H (1.6-2.3) mg/dL Assessment and Plan (1) Status post aortic valve replacement Status: Acute (2) Bicuspid aortic valve Status: Acute (3) Diabetes mellitus, insulin dependent (IDDM), controlled Status: Acute (4) Hypertension Status: Acute Plan: We'll continue to follow. Slowly improving but very slowly. Check CBC and CMP in a.m. See orders otherwise. Time with Patient: Less than 30
[2017-03-17] MEDS: METOPROLOL TARTRATE 25 MG TAB PO SCH ×2 (07:54→23:02)
[2017-03-17] MEDS: NYSTATIN 100,000 UNIT/ML SUSP 500,000 UNIT/5 ML CUP PO SCH ×4 (07:54→23:03)
[2017-03-17] MEDS: CALCIUM CARB-VIT D 500MG-200UN 1 EACH TAB PO SCH (07:54)
[2017-03-17] MEDS: CLOPIDOGREL 75 MG TAB PO SCH (07:54)
[2017-03-17] MEDS: AMIODARONE 200 MG TAB PO SCH ×2 (07:54→23:01)
[2017-03-17] MEDS: LISINOPRIL 10 MG TAB PO SCH ×2 (07:54→23:02)
[2017-03-17] MEDS: ASPIRIN 325 MG TAB PO SCH (07:54)
[2017-03-17] MEDS: ERGOCALCIFEROL 50,000 UNIT CAP PO SCH (07:55)
[2017-03-17] MEDS: PANTOPRAZOLE 40 MG/10 ML VIAL IVP SCH (07:55)
[2017-03-17 08:08] LABS: Glucose,Whole Blood 173 mg/dL (75-99)
[2017-03-17 08:21] LABS: ABG Base Excess -2.5 mmol/L; ABG HCO3 21 mmol/L (21-25); ABG PCO2 34 mmHg (35-45); ABG PH 7.42 (7.35-7.45); ABG PO2 89 mmHg (83-108); ABG TCO2 22 mmol/L (19-24)
[2017-03-17] MEDS ORDERED: FUROSEMIDE 10 MG/ML 4 ML VIAL IV STA (08:30)
--- NOTE | 2017-03-17 08:30 | XR ---
EXAMINATION TYPE: XR chest 1V portable DATE OF EXAM: 03/17/2017 Comparison: 03/16/2017 Clinical History: 76-year-old female post cardiac surgery Findings: ET and NG tubes remain in place. There is a left basilar chest tube present without appreciable pneum othorax. Left anterior chest wall pacemaker generator with right atrial and right ventricular leads. Median sternotomy wires are present with prosthetic aortic valve. Mild diffuse interstitial prominenc e stable to slightly improved. Trace left effusion and patchy retrocardiac opacity persists. Impression: 1. Slight improvement in pulmonary vascular congestion. 2. Continued small left effusion and retrocardiac atelectasis.
[2017-03-17] MEDS ORDERED: ATROPINE SULFATE 0.1 MG/ML 10ML SYRINGE ONE (08:44)
[2017-03-17] MEDS ORDERED: EPINEPHrine 10 ML SYRINGE (0.1 MG/ML) ONE (08:44)
--- NOTE | 2017-03-17 09:05 | P.PN ---
Subjective Principal diagnosis: Bicuspid aortic valve with critical aortic stenosis, aortic insufficiency. CAD. Diabetes mellitus. Hypertension. History of TIAs, neuropathy, pericarditis, scoliosis, brain concussion. History of paroxysmal atrial fibrillation POD #13 elective aortic valve replacement with #25 mm magna ease bioprosthetic aortic valve, a clip ligation into left atrial appendage with a #35 mm AtriClip and intraoperative transesophageal echocardiogram. Postoperative acute blood loss anemia, a potential expected outcome of surgery. POD #13 reexploration of the chest, evacuation of clot, control of bleed. Postoperative hypoxic respiratory failure requiring prolonged mechanical ventilation, a potential expected outcome of surgery. POD #11 placement of right pleural chest tube for pleural effusion Postoperative hypovolemic shock, inherent to the surgery Postoperative paroxysmal atrial fibrillation, and expected outcome of surgery POD #5 dual-chamber pacemaker insertion, transvenous under fluoroscopic vision for sick sinus syndrome versus asystole, inherent to aortic valve surgery. POD #5 placement of left pleural chest tube for left pneumothorax as a result of pacemaker placement, inherent to the surgery. Sputum culture positive for Klebsiella, antibiotics per pulmonology. Currently sedated on mechanical ventilation. Patient tolerated weaning trial yesterday for several hours. Will attempt again today. Patient appears more alert, switched from propofol to Precedex yesterday. Left side with no purposeful movement, withdrawing to painful stimuli. Objective - Vital Signs Vital signs: Vital Signs Temp 97.4 F L 03/17/17 04:00 Pulse 69 03/17/17 08:35 Resp 23 03/17/17 07:00 BP 105/48 03/14/17 10:00 Pulse Ox 98 03/17/17 07:00 Intake & Output 03/16/17 03/17/17 03/17/17 18:59 06:59 18:59 Intake Total 7354.042 8131.127 75.464 Output Total 645 1005 60 Balance 448.235 180.127 15.464 Weight 89 kg Intake: IV 264 276 23 Sodium Chloride 0.9% 1, 240 240 20 000 ml @ 20 mls/hr IV . Q24H [facility] Rx#:[id number] pressure bag 24 36 3 Intake, IV Titration 129.235 169.127 12.464 Amount Dexmedetomidine/0.9% NaCl 1.463 134.503 (Pmx) 400 mcg In Empty Bag 1 bag @ Titrate IV . Q0M [facility] Rx#:[id number] Insulin Regular 100 unit 27.772 34.624 12.464 In Sodium Chloride 0.9% 100 ml @ Per Protocol IV .Q0M [facility] Rx#:[id number] cefTRIAXone 1,000 mg In 100 Sodium Chloride 0.9% 50 ml @ 100 mls/hr IVPB Q24HR [facility] Rx#:[id number] Tube Feeding 480 560 40 Other 220 180 Output: Chest Tube Drainage 0 0 Chest Tube Left Lateral 0 0 Chest Urine 645 1005 60 Other: Voiding Method Indwelling Catheter Indwelling Catheter ABP, PAP, CO, CI - Last Documented Arterial Blood Pressure 157/62 Pulmonary Artery Pressure 43/32 Cardiac Output 3.9 Cardiac Index 2.3 - Constitutional General appearance: Present: cooperative, no acute distress - Respiratory Details: Lungs sounds diminished bilaterally. Respirations even, nonlabored on mechanical ventilation. Current settings assist control mode, FiO2 40%, tidal 5 400, respiratory rate 16, PEEP 5. Left pleural chest tube to -27 m wall suction, no output in 24 hours. No air leak present. - Cardiovascular Details: S1, S2 present, atrial paced on telemetry. Sternum stable. Right radial arterial line, left brachial PICC line present. Generalized edema present. Palpable pulses bilaterally. Heart hugger, teds, SCDs present. - Gastrointestinal Gastrointestinal Comment(s): Abdomen soft, nontender, nondistended, round. Active bowel sounds 4 quadrants. OG tube present, tolerating vital tube feeding at 40 mL per hour which is goal. - Genitourinary Genitourinary Comment(s): Cuellar present draining clear, yellow urine. Output 60-150 mL per hour overnight. - Integumentary Integumentary Comment(s): Anterior chest incision well approximated with Dermabond dressing and covered with dry intact 4 x 4's. - Neurologic Neurologic Comment(s): Shakes/nods had appropriately to questions. Moves right arm, right leg to command. Left arm, left leg withdraws to painful stimuli. No purposeful movement. - Musculoskeletal Musculoskeletal: Present: generalized weakness - Allied health notes Allied health notes reviewed: nursing - Labs CBC & Chem 7: 03/17/17 04:00 03/17/17 04:00 Labs: Abnormal Lab Results - Last 24 Hours (Table) 03/16/17 03/16/17 03/16/17 Range/Units 10:01 11:04 12:12 RBC (3.80-5.40) m/uL Hgb (11.4-16.0) gm/dL Hct (34.0-46.0) % MCH (25.0-35.0) pg MCHC (31.0-37.0) g/dL RDW (11.5-15.5) % Neutrophils # (1.3-7.7) k/uL ABG pH 7.46 H (7.35-7.45) ABG pCO2 30 L (35-45) mmHg ABG O2 Saturation 98.0 H (94-97) % Chloride (98-107) mmol/L BUN (7-17) mg/dL Glucose (74-99) mg/dL POC Glucose (mg/dL) 142 H 121 H (75-99) mg/dL Calcium (8.4-10.2) mg/dL Magnesium (1.6-2.3) mg/dL 03/16/17 03/16/17 03/16/17 Range/Units 15:32 17:27 19:01 RBC (3.80-5.40) m/uL Hgb (11.4-16.0) gm/dL Hct (34.0-46.0) % MCH (25.0-35.0) pg MCHC (31.0-37.0) g/dL RDW (11.5-15.5) % Neutrophils # (1.3-7.7) k/uL ABG pH (7.35-7.45) ABG pCO2 (35-45) mmHg ABG O2 Saturation (94-97) % Chloride (98-107) mmol/L BUN (7-17) mg/dL Glucose (74-99) mg/dL POC Glucose (mg/dL) 117 H 104 H 144 H (75-99) mg/dL Calcium (8.4-10.2) mg/dL Magnesium (1.6-2.3) mg/dL 03/16/17 03/16/17 03/17/17 Range/Units 22:13 23:55 00:07 RBC (3.80-5.40) m/uL Hgb (11.4-16.0) gm/dL Hct (34.0-46.0) % MCH (25.0-35.0) pg MCHC (31.0-37.0) g/dL RDW (11.5-15.5) % Neutrophils # (1.3-7.7) k/uL ABG pH (7.35-7.45) ABG pCO2 (35-45) mmHg ABG O2 Saturation (94-97) % Chloride (98-107) mmol/L BUN (7-17) mg/dL Glucose (74-99) mg/dL POC Glucose (mg/dL) 106 H 124 H 120 H (75-99) mg/dL Calcium (8.4-10.2) mg/dL Magnesium (1.6-2.3) mg/dL 03/17/17 03/17/17 03/17/17 Range/Units 04:00 04:00 04:02 RBC 3.35 L (3.80-5.40) m/uL Hgb 8.1 L (11.4-16.0) gm/dL Hct 27.0 L (34.0-46.0) % MCH 24.1 L (25.0-35.0) pg MCHC 29.8 L (31.0-37.0) g/dL RDW 24.6 H (11.5-15.5) % Neutrophils # 8.4 H (1.3-7.7) k/uL ABG pH (7.35-7.45) ABG pCO2 (35-45) mmHg ABG O2 Saturation (94-97) % Chloride 113 H (98-107) mmol/L BUN 64 H (7-17) mg/dL Glucose 149 H (74-99) mg/dL POC Glucose (mg/dL) 170 H (75-99) mg/dL Calcium 7.9 L (8.4-10.2) mg/dL Magnesium 2.9 H (1.6-2.3) mg/dL 03/17/17 03/17/17 03/17/17 Range/Units 06:10 08:00 08:05 RBC (3.80-5.40) m/uL Hgb (11.4-16.0) gm/dL Hct (34.0-46.0) % MCH (25.0-35.0) pg MCHC (31.0-37.0) g/dL RDW (11.5-15.5) % Neutrophils # (1.3-7.7) k/uL ABG pH (7.35-7.45) ABG pCO2 34 L (35-45) mmHg ABG O2 Saturation (94-97) % Chloride (98-107) mmol/L BUN (7-17) mg/dL Glucose (74-99) mg/dL POC Glucose (mg/dL) 153 H 173 H (75-99) mg/dL Calcium (8.4-10.2) mg/dL Magnesium (1.6-2.3) mg/dL - Imaging and Cardiology Chest x-ray: report reviewed, image reviewed Assessment and Plan (1) History of TIA (transient ischemic attack) Status: Acute (2) Hyperlipidemia Status: Acute (3) Osteoarthritis Status: Acute (4) Acute blood loss as cause of postoperative anemia Status: Acute (5) Paroxysmal atrial fibrillation Status: Acute (6) Status post aortic valve replacement Status: Acute (7) Bicuspid aortic valve Status: Acute (8) Diabetes mellitus, insulin dependent (IDDM), controlled Status: Acute (9) Hypertension Status: Acute (10) Severe aortic stenosis Status: Acute Plan: 1. Continue aspirin, Plavix, beta daysi, JENNIFER inhibitor. Statin on hold secondary to elevated liver enzymes, will restart when able. Will maximize beta daysi therapy as able. Continue amiodarone for A. fib prophylaxis. 2. Wean O2 as tolerated. Ventilatory support per pulmonary services. Sputum culture positive for Klebsiella, continue ceftriaxone per pulmonary services. 3. Will check CAT scan of the brain as well as a precautionary measure. 4. Will give a dose of Lasix 40 mg IV push today. 5. Check residual from OG tube every 4 hours. 6. Continue Cuellar for strict accurate intake and output. 7. Monitor daily labs, chest x-rays. 8. GI/DVT prophylaxis. 9. Insulin management per primary service. 10. More recommendations as patient progresses. Time with Patient: Greater than 30
--- NOTE | 2017-03-17 09:17 | P.PN ---
Subjective Principal diagnosis: Status post aVR This is a pleasant 76-year-old female patient who sees Dr. STELLA Lazaro as an outpatient who was diagnosed recently with symptomatic severe aortic stenosis secondary to bicuspid aortic valve. The patient underwent aVR using a bioprosthetic aortic valve. The patient continues to be intubated on ventilator. The plan is to try to wean her today. She might be going to have a PEG and trach tube later on. Hemodynamically she seems to be stable. The hemoglobin today 8. The patient seems to be a bit more awake. The left side seems to be flaccid and the patient just came from a computed tomography scan of the brain. Objective - Vital Signs Vital signs: Vital Signs Temp 97.4 F L 03/17/17 04:00 Pulse 69 03/17/17 08:35 Resp 23 03/17/17 07:00 BP 105/48 03/14/17 10:00 Pulse Ox 98 03/17/17 07:00 Intake & Output 03/16/17 03/17/17 03/17/17 18:59 06:59 18:59 Intake Total 5961.945 9403.127 75.464 Output Total 645 1005 60 Balance 448.235 180.127 15.464 Weight 89 kg Intake: IV 264 276 23 Sodium Chloride 0.9% 1, 240 240 20 000 ml @ 20 mls/hr IV . Q24H [facility] Rx#:[id number] pressure bag 24 36 3 Intake, IV Titration 129.235 169.127 12.464 Amount Dexmedetomidine/0.9% NaCl 1.463 134.503 (Pmx) 400 mcg In Empty Bag 1 bag @ Titrate IV . Q0M [facility] Rx#:[id number] Insulin Regular 100 unit 27.772 34.624 12.464 In Sodium Chloride 0.9% 100 ml @ Per Protocol IV .Q0M [facility] Rx#:[id number] cefTRIAXone 1,000 mg In 100 Sodium Chloride 0.9% 50 ml @ 100 mls/hr IVPB Q24HR [facility] Rx#:[id number] Tube Feeding 480 560 40 Other 220 180 Output: Chest Tube Drainage 0 0 Chest Tube Left Lateral 0 0 Chest Urine 645 1005 60 Other: Voiding Method Indwelling Catheter Indwelling Catheter ABP, PAP, CO, CI - Last Documented Arterial Blood Pressure 157/62 Pulmonary Artery Pressure 43/32 Cardiac Output 3.9 Cardiac Index 2.3 - Constitutional General appearance: Present: no acute distress - Labs CBC & Chem 7: 03/17/17 04:00 03/17/17 04:00 Labs: Abnormal Lab Results - Last 24 Hours (Table) 03/16/17 03/16/17 03/16/17 Range/Units 10:01 11:04 12:12 RBC (3.80-5.40) m/uL Hgb (11.4-16.0) gm/dL Hct (34.0-46.0) % MCH (25.0-35.0) pg MCHC (31.0-37.0) g/dL RDW (11.5-15.5) % Neutrophils # (1.3-7.7) k/uL ABG pH 7.46 H (7.35-7.45) ABG pCO2 30 L (35-45) mmHg ABG O2 Saturation 98.0 H (94-97) % Chloride (98-107) mmol/L BUN (7-17) mg/dL Glucose (74-99) mg/dL POC Glucose (mg/dL) 142 H 121 H (75-99) mg/dL Calcium (8.4-10.2) mg/dL Magnesium (1.6-2.3) mg/dL 03/16/17 03/16/17 03/16/17 Range/Units 15:32 17:27 19:01 RBC (3.80-5.40) m/uL Hgb (11.4-16.0) gm/dL Hct (34.0-46.0) % MCH (25.0-35.0) pg MCHC (31.0-37.0) g/dL RDW (11.5-15.5) % Neutrophils # (1.3-7.7) k/uL ABG pH (7.35-7.45) ABG pCO2 (35-45) mmHg ABG O2 Saturation (94-97) % Chloride (98-107) mmol/L BUN (7-17) mg/dL Glucose (74-99) mg/dL POC Glucose (mg/dL) 117 H 104 H 144 H (75-99) mg/dL Calcium (8.4-10.2) mg/dL Magnesium (1.6-2.3) mg/dL 08/15/17 08/15/17 08/16/17 Range/Units 22:13 23:55 00:07 RBC (3.80-5.40) m/uL Hgb (11.4-16.0) gm/dL Hct (34.0-46.0) % MCH (25.0-35.0) pg MCHC (31.0-37.0) g/dL RDW (11.5-15.5) % Neutrophils # (1.3-7.7) k/uL ABG pH (7.35-7.45) ABG pCO2 (35-45) mmHg ABG O2 Saturation (94-97) % Chloride (98-107) mmol/L BUN (7-17) mg/dL Glucose (74-99) mg/dL POC Glucose (mg/dL) 106 H 124 H 120 H (75-99) mg/dL Calcium (8.4-10.2) mg/dL Magnesium (1.6-2.3) mg/dL 03/17/17 03/17/17 03/17/17 Range/Units 04:00 04:00 04:02 RBC 3.35 L (3.80-5.40) m/uL Hgb 8.1 L (11.4-16.0) gm/dL Hct 27.0 L (34.0-46.0) % MCH 24.1 L (25.0-35.0) pg MCHC 29.8 L (31.0-37.0) g/dL RDW 24.6 H (11.5-15.5) % Neutrophils # 8.4 H (1.3-7.7) k/uL ABG pH (7.35-7.45) ABG pCO2 (35-45) mmHg ABG O2 Saturation (94-97) % Chloride 113 H (98-107) mmol/L BUN 64 H (7-17) mg/dL Glucose 149 H (74-99) mg/dL POC Glucose (mg/dL) 170 H (75-99) mg/dL Calcium 7.9 L (8.4-10.2) mg/dL Magnesium 2.9 H (1.6-2.3) mg/dL 03/17/17 03/17/17 03/17/17 Range/Units 06:10 08:00 08:05 RBC (3.80-5.40) m/uL Hgb (11.4-16.0) gm/dL Hct (34.0-46.0) % MCH (25.0-35.0) pg MCHC (31.0-37.0) g/dL RDW (11.5-15.5) % Neutrophils # (1.3-7.7) k/uL ABG pH (7.35-7.45) ABG pCO2 34 L (35-45) mmHg ABG O2 Saturation (94-97) % Chloride (98-107) mmol/L BUN (7-17) mg/dL Glucose (74-99) mg/dL POC Glucose (mg/dL) 153 H 173 H (75-99) mg/dL Calcium (8.4-10.2) mg/dL Magnesium (1.6-2.3) mg/dL Assessment and Plan Plan: Continue the current medical treatment which included dual antiplatelet therapy , metoprolol, lisinopril, digoxin and amiodarone. We might need to DC the digoxin down the line if the kidney function is deteriorating. The patient might go to have a PEG and trach tube later on today. An attempt to wean her is also going to happen today.
--- NOTE | 2017-03-17 09:24 | CT ---
EXAMINATION TYPE: CT brain wo con DATE OF EXAM: 03/17/2017 COMPARISON: 05/27/2011 HISTORY: New onset Lt sided weakness CT DLP: 945.[address] of the brain was performed. The ventricles, basal cisterns and sulci overlying the cerebral convexities demonstrate mild enlargem ent. There is no evidence for intracranial hemorrhage or sulcal effacement. There is decreased attenuation about the periventricular white matter and deep white matter of both c erebral hemispheres, compatible with chronic small vessel ischemia. Differential diagnosis does inclu de demyelination. No mass effects are seen.No midline shift. Osseous calvarium is intact. If symptoms persist consider MRI. IMPRESSION: 1. Age related atrophic and chronic small vessel ischemic change without acute intracranial process s een at this time.
[2017-03-17 10:06] LABS: Glucose,Whole Blood 114 mg/dL (75-99)
[2017-03-17] MEDS ORDERED: LORazepam 2 MG/ML SYRINGE IV PRN (10:28)
[2017-03-17] MEDS ORDERED: LORazepam 2 MG/ML SYRINGE ONE (10:28)
[2017-03-17] MEDS: CHLORHEXIDINE GLUCONATE 15 ML CUP MUCOUS MEM SCH (10:55)
--- NOTE | 2017-03-17 11:31 | P.PN ---
Subjective Principal diagnosis: Status post aortic valve replacement, postoperative day # 12 76-year-old male patient is postop day #4 following aortic valve replacement. Patient also is known to have previous CVA, bronchial asthma, hyperlipidemia, diabetes and hypertension. Surgery was done for bicuspid aortic valve and the patient is status post aortic valve replacement, bioprosthetic valve. Postop, the patient developed some mediastinal bleeding with hypotension. Based on that the patient was taken back to the operating room to control the bleed and during the process the patient was given a total of 4 units of packed RBC, 2 units of fresh frozen plasma one unit of platelets. The patient was kept intubated on mechanical ventilator. As mentioned today's postop day #4 On today's evaluation, the patient remains on a mechanical ventilator. The patient is an assist-control mode of ventilation with a rate of 24, tidal volume 350, FiO2 of 60% and a PEEP of 10. She is intubated with a #8 ET tube. Chest x-ray from today shows adequate expansion of both lungs. Chest tubes are in place. ET tube is in place. She has some mild cardiomegaly. No sinus complaints or pleural effusions. No pneumothorax seen. The blood gases from this morning showed a pH of 7.38 with a pCO2 of 36 and pO2 of 76. Hemodynamically the patient is stable. The patient is producing adequate amount of urine output. The patient is on no pressors. The patient is on no clevidipine drip. Blood pressure is on under good control. The chest tubes are still in place. The patient has a right pleural and left pleural chest tube and 2 mediastinal chest tubes. All of them are showing minimal amount of drainage and the patient would have the mediastinal and the right sided chest tube pulled today. Platelet count improved and it's up to 148. Hemoglobin stable at 8.1. She is sedated with Diprivan. She is calm and comfortable. On 03/09/2017 the patient is still being seen in follow-up. The patient has been quite stable overnight. The patient is on a mechanical ventilator and based on the most is a vent changes she is on a rate of 24, tidal volume 450, FiO2 has been down to 40% and I cut down the PEEP down to 8 and then down to 5 cm of water. The patient's chest x-ray showing cardiomegaly and there is a component of pulmonary vessel congestion. The patient was given 20 mg of IV Lasix this morning. She is producing adequate amount of urine output. The mediastinal and the right pleural chest tube has been removed. The patient has a left pleural chest tube only. No fever. No chills. Tolerating tube feeds. No other significant events overnight. Blood gases from this morning showed a pH of 7.48 with a pCO2 of 29 and a pO2 of 83. Hemoglobin stable at 8.5. On 03/10/2017 the patient is being seen in follow-up. She was taken off sedation this morning and she was very slow in recovering from sedation. Despite being off the sedation for few hours, the patient is still lethargic. She is arousable and she can follow simple commands. She is not fully alert however. She remains on same vent settings overnight which included an assist- control of 24, tidal volume 450, FiO2 of 40% and a PEEP of 5. Blood gases from this morning showed a component of respiratory alkalosis. Chest x-ray shows cardiomegaly with pulmonary vascular congestion and the patient was given 20 mg of IV Lasix earlier by cardiothoracic surgery. Mediastinal and right pleural chest tube has been removed. The patient has a left-sided chest tube in place. Sternum stable clean and intact. No major edema in lower extremities. After being taken off sedation, check weaning parameters and the patient was becoming quite restless even on assist control mode of ventilation. She was becoming tachypneic and her minute ventilation was high. She was able to generate more than 400 mL of tidal volume and a support of 5 and a PEEP of 5. At that point, I made a decision to extubate this patient to a BiPAP at a pressure of 12/5 cm of water and FiO2 of 60%. One hour following extubation, blood gases was done and showed a pH of 7.42 with a pCO2 of 37 and pO2 of 76. She is still lethargic and somewhat sleepy. She is arousable however. She did have some hypertensive reaction for which she was given 5 g of IV Lopressor. She is a bit anxious and she'll be given 1 mg of Ativan. Additional dose of 40 because of Lasix will be given. I am inclined not to reintubate this patient. I'm trying to stabilize her condition to avoid reintubation. Note that she has a restrictive lung disease pH is obese. Her FVC and FEV1 were in the 55% of age preoperatively. Her lung volumes are small on today's chest x-ray. On 03/11/2017 the patient is being seen in follow-up. After being extubated for few hours the patient had to be intubated. Immediately after the intubation she had frothy rest or secretions with orotracheal tube and she was suspected to be in acute pulmonary edema. Based on that the patient with diuresis with IV Lasix and since then her fluid balance has been negative. She has diuresed another 1 L since yesterday. She is sedated on Diprivan and she is calm and comfortable. She is on a mechanical ventilator on assist control mode at the rate of 2, tidal volume 400, FiO2 of 40% and a PEEP of 7. The vent changes were adjusted this morning after I reviewed the blood gases and a chest x-ray. The chest x-ray shows some cardiomegaly and mild four-vessel congestion and a blood gas showed a pH of 7.42 with a pCO2 of 38 and pO2 136. Earlier this morning the patient was also having A dose of hypotension. His systolic blood pressure was dropping in the mid 80s. She was placed on norepinephrine infusion and was running at around 4-5 mics to maintain a mean artery pressure above 65. Cardiac rhythm is atrial fibrillation. She was having episodes of bradycardia and tachycardia. I noted on several occasions that the patient's backup pacemaker was discharging. At the rate is stage became tachycardic. CT surgery was involved and the patient was given digoxin 0.5 mg. She is currently ventricular paced at the rate of 65. The underlying rhythm was asystole. Note that she had gotten her metoprolol earlier this morning. She is back on her tube feeds and currently she is on vital high protein at the rate of 40 mL an hour. In terms of fluid balance, she is on IV D5 water at the rate of 40. Producing somewhere between 75 mL an hour of urine output. Afebrile. The patient is seen again today 03/12/2017 in follow-up in the intensive care unit. She remains intubated and on the mechanical ventilator. Currently in an assist-control mode with a rate of 12, tidal volume 400, FiO2 40 and a PEEP of 5. Morning blood gases reveal a P O2 of 74, pCO2 of 34 and a pH of 7.44. Today 's chest x-ray revealed overall stable findings, there is chronic parenchymal changes and cardiomegaly with patchy left basilar atelectasis. No new infiltrates are seen. She remains on norepinephrine at 3 mcg/m to maintain mean arterial pressure of 65 and greater. She is sedated on propofol at 35 mcg/ kg/m. She is on insulin drip at 5.5 units per hour. Her Vital high-protein tube feeds are currently on hold as the patient has been noticed to be pacemaker dependent and the plan is for insertion of a permanent pacemaker today. On 03/13/2017 the patient is being seen in follow-up in the intensive care unit. She is was sedated and she is calm and comfortable. Noted the patient underwent a pacemaker insertion yesterday for postoperative asystole. The patient postop developed a 50% pneumothorax on the left. A chest tube was inserted in the intensive care unit without any complication today's chest x- ray shows full expansion of the left lung without evidence of any pneumothorax or air leak. Meanwhile, the patient is still on a mechanical ventilator assist control mode with tidal volume 400, FiO2 of 50% and a PEEP of 5. The blood gases showed a pH of 7.5 with a pCO2 of 31 and pO2 of 60. Chest x-ray is showing thyromegaly and pulmonary vessel congestion. Sodium level is at 142. Hemoglobin is at 7.3 which is a gram lower compared to yesterday. A sedation holiday will be done and we'll check again the weaning parameters., Judgment the patient is not ready to wean yet. Oxidation is still borderline and there is not a whole lot of room for potential extubation on today's evaluation. She is tolerating her tube feeds. She is on 50 mics of the prevent. No fever. No chills. Sternum stable clean and intact. On 03/14/2017 the patient is being seen in follow-up in the intensive care units. She is calm and comfortable. She was given a sedation holiday and she woke up very appropriately today. She is following commands. She is still intubated on a mechanical ventilator. She is an assist-control mode at the rate of 12, FiO2 of 50%, tidal volume 400 and a PEEP of 5. Chest x-ray showing cardiomegaly, there is a left-sided chest tube in place without evidence of pneumothorax, ET tube is in a good location there is some mild pulmonary vascular congestion. The patient is on no pressors. Overnight she went into each of fibrillation with rapid ventricular response. She was placed on amiodarone drip. Note that she has a pacemaker in place as the patient went into complete asystole post AVR. She is producing adequate amount of urine output. Renal function is stable. There is Klebsiella growing in her sputum and based on that the patient be started on IV antibiotics. She is afebrile for now. No leukocytosis. Hemoglobin today is at 8.3. On 03/15/2017, patient remains on mechanical ventilation, earlier trial of weaning and holding sedation failed, patient was noted to be extremely agitated tachypneic and tachycardic, hence she had to be placed back on propofol, and back on assist control mode of mechanical ventilation. Patient is arousable, follows simple instructions, but clearly her gases are marginal, and her weaning parameters are poor considering her extreme agitation once off sedation. Her ventilator settings were reviewed, she is presently on FiO2 of 45 %, tidal volume of 400, PEEP of 5. Her flow rate is about 60 L/m, and that gives us an inspiratory and expiratory ratio of 1:2. ABG showed a pO2 of 66 pCO2 of 28 pH of 7.50, hence I cut down her before meals rate to 16. Her FiO2 is now 45% instead of 40%. CBC showed the PEEP cigar of 11.8 hemoglobin of 7.9. BUN is 65 creatinine of 1.09. Gram stain of the sputum and culture showed Klebsiella oxytoca patient is on Rocephin. On 03/16/2017, patient remains on mechanical ventilation, I went ahead and stopped her propofol, patient seems to be appropriate, follows simple instructions, but she seems to be generally weak and frail. I would proceed later with pressure support and CPAP, and if she gets agitated may utilize a Precedex. Reviewed her labs, ABG showed a pO2 of 85 pCO2 of 53 3 pH of 7.42. Hemoglobin is 7.7, renal profile showed a BUN of 64 creatinine of 1.0. Chest x- ray showed mostly by basilar opacities and strongly suspicious for atelectasis. Doubt underlying pneumonia. On 03/17/2017, patient remains on mechanical ventilation, she is now on Precedex replacing propofol, seems to be appropriate, however she was noted to have some weakness on the left side, CT of the brain was done earlier today and it came back negative for acute process. Patient was kept on Precedex, she was placed on pressure support of 8 and CPAP for almost an hour and she seemed to do quite well. Hence after reviewing all her labs, x-ray, and CT of the brain, I extubated the patient to BiPAP. So far the process of weaning and extubation seems to be tolerated. ABG this morning showed a pO2 of 89 pCO2 of 34 pH of 7.42 and this was on assist control mode of mechanical ventilation, and FiO2 of 45%. Objective - Vital Signs Vital signs: Vital Signs Temp 97.7 F 03/17/17 08:00 Pulse 70 03/17/17 10:00 Resp 18 03/17/17 10:00 BP 105/48 03/14/17 10:00 Pulse Ox 98 03/17/17 10:00 Intake & Output 03/16/17 03/17/17 03/17/17 18:59 06:59 18:59 Intake Total 6374.353 6991.127 333.248 Output Total 645 1005 855 Balance 448.235 180.127 -521.752 Weight 89 kg Intake: IV 264 276 106 Sodium Chloride 0.9% 1, 240 240 100 000 ml @ 20 mls/hr IV . Q24H [facility] Rx#:[id number] pressure bag 24 36 6 Intake, IV Titration 129.235 169.127 67.248 Amount Dexmedetomidine/0.9% NaCl 1.463 134.503 38.339 (Pmx) 400 mcg In Empty Bag 1 bag @ Titrate IV . Q0M [facility] Rx#:[id number] Insulin Regular 100 unit 27.772 34.624 28.909 In Sodium Chloride 0.9% 100 ml @ Per Protocol IV .Q0M [facility] Rx#:[id number] cefTRIAXone 1,000 mg In 100 Sodium Chloride 0.9% 50 ml @ 100 mls/hr IVPB Q24HR [facility] Rx#:[id number] Tube Feeding 480 560 160 Other 220 180 Output: Chest Tube Drainage 0 0 0 Chest Tube Left Lateral 0 0 0 Chest Urine 645 1005 855 Other: Voiding Method Indwelling Catheter Indwelling Catheter Indwelling Catheter ABP, PAP, CO, CI - Last Documented Arterial Blood Pressure 167/73 Pulmonary Artery Pressure 43/32 Cardiac Output 3.9 Cardiac Index 2.3 - Exam Physical Exam: Revealed a 76-year-old female on mechanical ventilation, looks generally frail and weak, pale, in no distress. HEENT:[Neck is supple.] [No neck masses.] [No thyromegaly.] [No JVD.]. Endotracheal tube and orogastric tube seemed to be intact. Chest: [Extremely diminished breath sounds at the bases, no crackles or rhonchi or wheezes..] Cardiac Exam: [Normal S1 and S2, no S3 gallop, no murmur.] Abdomen: [Soft, nontender, no megaly, no rebound, no guarding, normal bowel sounds.] Extremities: [No clubbing, 1 + bipedal edema, no cyanosis.] Neurological Exam: [No focal neurologic deficit.] However, the patient seems to be generally weak with mostly proximal weakness of her muscles. - Labs CBC & Chem 7: 03/17/17 04:00 03/17/17 04:00 Labs: Abnormal Lab Results - Last 24 Hours (Table) 03/16/17 03/16/17 03/16/17 Range/Units 12:12 15:32 17:27 RBC (3.80-5.40) m/uL Hgb (11.4-16.0) gm/dL Hct (34.0-46.0) % MCH (25.0-35.0) pg MCHC (31.0-37.0) g/dL RDW (11.5-15.5) % Neutrophils # (1.3-7.7) k/uL ABG pCO2 (35-45) mmHg Chloride (98-107) mmol/L BUN (7-17) mg/dL Glucose (74-99) mg/dL POC Glucose (mg/dL) 121 H 117 H 104 H (75-99) mg/dL Calcium (8.4-10.2) mg/dL Magnesium (1.6-2.3) mg/dL 03/16/17 03/16/17 03/16/17 Range/Units 19:01 22:13 23:55 RBC (3.80-5.40) m/uL Hgb (11.4-16.0) gm/dL Hct (34.0-46.0) % MCH (25.0-35.0) pg MCHC (31.0-37.0) g/dL RDW (11.5-15.5) % Neutrophils # (1.3-7.7) k/uL ABG pCO2 (35-45) mmHg Chloride (98-107) mmol/L BUN (7-17) mg/dL Glucose (74-99) mg/dL POC Glucose (mg/dL) 144 H 106 H 124 H (75-99) mg/dL Calcium (8.4-10.2) mg/dL Magnesium (1.6-2.3) mg/dL 03/17/17 03/17/17 03/17/17 Range/Units 00:07 04:00 04:00 RBC 3.35 L (3.80-5.40) m/uL Hgb 8.1 L (11.4-16.0) gm/dL Hct 27.0 L (34.0-46.0) % MCH 24.1 L (25.0-35.0) pg MCHC 29.8 L (31.0-37.0) g/dL RDW 24.6 H (11.5-15.5) % Neutrophils # 8.4 H (1.3-7.7) k/uL ABG pCO2 (35-45) mmHg Chloride 113 H (98-107) mmol/L BUN 64 H (7-17) mg/dL Glucose 149 H (74-99) mg/dL POC Glucose (mg/dL) 120 H (75-99) mg/dL Calcium 7.9 L (8.4-10.2) mg/dL Magnesium 2.9 H (1.6-2.3) mg/dL 03/17/17 03/17/17 03/17/17 Range/Units 04:02 06:10 08:00 RBC (3.80-5.40) m/uL Hgb (11.4-16.0) gm/dL Hct (34.0-46.0) % MCH (25.0-35.0) pg MCHC (31.0-37.0) g/dL RDW (11.5-15.5) % Neutrophils # (1.3-7.7) k/uL ABG pCO2 34 L (35-45) mmHg Chloride (98-107) mmol/L BUN (7-17) mg/dL Glucose (74-99) mg/dL POC Glucose (mg/dL) 170 H 153 H (75-99) mg/dL Calcium (8.4-10.2) mg/dL Magnesium (1.6-2.3) mg/dL 03/17/17 03/17/17 Range/Units 08:05 10:04 RBC (3.80-5.40) m/uL Hgb (11.4-16.0) gm/dL Hct (34.0-46.0) % MCH (25.0-35.0) pg MCHC (31.0-37.0) g/dL RDW (11.5-15.5) % Neutrophils # (1.3-7.7) k/uL ABG pCO2 (35-45) mmHg Chloride (98-107) mmol/L BUN (7-17) mg/dL Glucose (74-99) mg/dL POC Glucose (mg/dL) 173 H 114 H (75-99) mg/dL Calcium (8.4-10.2) mg/dL Magnesium (1.6-2.3) mg/dL Assessment and Plan Plan: 1 aortic valve replacement for severe bicuspid aortic valve stenosis, patient is postop day # 12 2 postoperative mediastinal bleeding, recovered 3 postoperative cardiac arrhythmia, asystole, status post insertion of a pacemaker. 4 acute hypoxic respiratory failure, expected outcome of surgery. The patient failed a trial of extubation approximately a few days ago. Subsequently, there were no weaning trials done as the patient was considered to be on stable for weaning. This morning, the patient is much more awake and stabilized and hemodynamically she is doing well. Chest x-ray was reviewed. Blood gases was reviewed. We'll continue weaning trials on a daily basis, patient will be given another weaning trial today if possible. 5 iatrogenic left-sided pneumothorax status post chest tube insertion with successful expansion of the left lung without evidence of any air leak. 6 hypertension, history of 7 CVA/TIA, history of 8 bronchial asthma, history of 9 obesity 10 restrictive lung physiology on preop spirometry with an FEV1 of 56% of predicted. 11 thrombocytopenia, recovered 12 postoperative anemia, expected, hemoglobin is at 8.1 Recommendation: After reviewing the patient's labs, x-ray, CT of the brain, and after the patient tolerated good trial with pressure support of 8 and CPAP, she maintained adequate tidal volumes and adequate respiratory rate, I went ahead and extubated the patient to BiPAP. I plan to change BiPAP to nasal cannula, in the meantime we'll try to cut down on the amount of sedation as much as possible and will continue incentive spirometry, encourage deep coughing and breathing, and early ambulation. Critical care time is 40 minutes. Time with Patient: Greater than 30
[2017-03-17 11:53] LABS: Glucose,Whole Blood 125 mg/dL (75-99)
[2017-03-17] MEDS: CYANOCOBALAMIN 500 MCG TAB PO SCH (12:15)
[2017-03-17] MEDS: CLEVIDIPINE BUTYRATE 25 MG in EMPTY BAG 1 BAG IV SCH (12:16)
[2017-03-17] MEDS: SODIUM CHLORIDE 0.9% 1,000 ML IV SCH (12:16)
[2017-03-17] MEDS: hydrALAZINE HCL 20 MG/ML 1 ML VIAL IVP PRN (12:56)
[2017-03-17 13:13] LABS: ABG Base Excess -1.9 mmol/L; ABG HCO3 21 mmol/L (21-25); ABG PCO2 30 mmHg (35-45); ABG PH 7.47 (7.35-7.45); ABG PO2 88 mmHg (83-108); ABG TCO2 22 mmol/L (19-24)
[2017-03-17 13:58] LABS: Glucose,Whole Blood 132 mg/dL (75-99)
[2017-03-17 16:11] LABS: Glucose,Whole Blood 105 mg/dL (75-99)
[2017-03-17 18:06] LABS: Glucose,Whole Blood 119 mg/dL (75-99)
[2017-03-17 19:52] LABS: Glucose,Whole Blood 137 mg/dL (75-99)
[2017-03-17] MEDS: INSULIN REGULAR 100 UNIT in SODIUM CHLORIDE 0.9% 100 ML IV SCH (19:52)
[2017-03-17 22:42] LABS: Glucose,Whole Blood 90 mg/dL (75-99)
--- NOTE | 2017-03-17 22:59 | XR ---
EXAM: Chest 1 view HISTORY: <Nasogastric> tube verification COMPARISON: Chest x-ray performed earlier the same day FINDINGS: A <nasogastric> tube is present and confirmed in the stomach. Interval removal of ET tube is suggested. Cardiopulmonary status is stable. IMPRESSION: 1. <Nasogastric> tube confirmed in the stomach 2. Cardiopulmonary status is stable
[2017-03-17] MEDS: SENNOSIDES-DOCUSATE SODIUM 1 EACH TAB PO SCH (23:03)
[2017-03-17 23:51] LABS: Glucose,Whole Blood 121 mg/dL (75-99)
[2017-03-18 02:15] LABS: Glucose,Whole Blood 88 mg/dL (75-99)
[2017-03-18 03:47] LABS: Ionized Calcium 4.8 mg/dL (4.5-5.3)
[2017-03-18 03:56] LABS: ALT 57 U/L (9-52); AST 41 U/L (14-36); Alkaline Phosphatase 184 U/L (38-126); Anion Gap 12 mmol/L; Anisocytosis Marked; Basophils # (A) 0.1 k/uL (0-0.2); Basophils % (A) 0 %; Blood Urea Nitrogen 58 mg/dL (7-17); CH 23.9; CHCM 30.5; Calcium 8.2 mg/dL (8.4-10.2); Carbon Dioxide 20 mmol/L (22-30); Chloride 115 mmol/L (98-107); Eosinophils # (A) 0.1 k/uL (0-0.7); Eosinophils % (A) 1 %; Glucose 114 mg/dL (74-99); HCT 27.6 % (34.0-46.0); HDW 4.07; HGB 8.3 gm/dL (11.4-16.0); Hypochromasia Marked; Luc # (Auto) 0.32; Luc % (Auto) 3; Lymphocytes # (A) 1.3 k/uL (1.0-4.8); Lymphocytes % (A) 12 %; MCH 23.7 pg (25.0-35.0); MCV 78.9 fL (80.0-100.0); Magnesium 2.8 mg/dL (1.6-2.3); Mean Platelet Volume 7.3; Microcytosis Marked; Monocytes # (A) 0.8 k/uL (0-1.0); Monocytes % (A) 7 %; Neutrophils # (A) 8.7 k/uL (1.3-7.7); Neutrophils % (A) 77 %; Non-African American GFR(MDRD) 54 (>60 ml/min/1.73 sqM); Poikilocytosis Moderate; Potassium 4.4 mmol/L (3.5-5.1); RBC 3.49 m/uL (3.80-5.40); Sodium 147 mmol/L (137-145); Total Bilirubin 0.8 mg/dL (0.2-1.3); Total Protein 5.2 g/dL (6.3-8.2); WBC 11.3 k/uL (3.8-10.6); WBC (Perox) 11.03
[2017-03-18 05:54] LABS: Glucose,Whole Blood 132 mg/dL (75-99)
[2017-03-18] MEDS: HEPARIN SODIUM,PORCINE 5,000 UNIT/ML 1 ML VIAL SQ SCH ×3 (05:54→20:22)
[2017-03-18] MEDS: OFLOXACIN 0.3% OPHTH DROPS 5 ML BOTTLE RIGHT EYE SCH ×3 (05:54→17:55)
[2017-03-18] MEDS: prednisoLONE ACETATE 1% OPHTH DROPS 1 ML BTL RIGHT EYE SCH ×3 (05:54→17:54)
--- NOTE | 2017-03-18 07:19 | XR ---
EXAMINATION TYPE: XR chest 1V portable DATE OF EXAM: 03/18/2017 Comparison: 03/17/2017 Clinical History: 76-year-old female post cardiac surgery Findings: Low lung volumes. Heart remains enlarged. NG tube courses below the diaphragm. Median sternotomy wire s with prosthetic aortic valve. Left anterior chest wall pacemaker generator with right atrial and ri ght ventricular leads. Left PICC tip at the mid to lower SVC level. Continued prominence of the inter stitial/pulmonary vasculature. There is trace left effusion with a dense retrocardiac opacity. Impression: Hypoventilatory changes with decreased lung volumes as compared to prior. Mild pulmonary vascular con gestion is similar as is the small left effusion and dense retrocardiac atelectasis.
[2017-03-18] MEDS: ASPIRIN 325 MG TAB PO SCH (08:08)
[2017-03-18] MEDS: AMIODARONE 200 MG TAB PO SCH ×2 (08:08→20:22)
[2017-03-18] MEDS: PANTOPRAZOLE 40 MG/10 ML VIAL IVP SCH (08:08)
[2017-03-18] MEDS: METOPROLOL TARTRATE 25 MG TAB PO SCH ×2 (08:08→20:22)
[2017-03-18] MEDS: NYSTATIN 100,000 UNIT/ML SUSP 500,000 UNIT/5 ML CUP PO SCH ×4 (08:08→22:00)
[2017-03-18] MEDS: CALCIUM CARB-VIT D 500MG-200UN 1 EACH TAB PO SCH (08:09)
[2017-03-18] MEDS: CLOPIDOGREL 75 MG TAB PO SCH (08:09)
[2017-03-18] MEDS: LISINOPRIL 10 MG TAB PO SCH ×2 (08:09→20:22)
[2017-03-18 08:24] LABS: Glucose,Whole Blood 88 mg/dL (75-99)
[2017-03-18] MEDS ORDERED: FUROSEMIDE 10 MG/ML 4 ML VIAL IV STA (09:31)
--- NOTE | 2017-03-18 09:32 | P.PN ---
Subjective Principal diagnosis: Status post aVR This is a pleasant 76-year-old female patient who sees Dr. STELLA Lazaro as an outpatient who was diagnosed recently with symptomatic severe aortic stenosis secondary to bicuspid aortic valve. The patient underwent aVR using a bioprosthetic aortic valve. The patient was extubated yesterday. She is awake and she is following commands. She still have left sided weakness. She underwent a computed tomography scan which did not show any acute abnormalities. Hemodynamically she seems to be stable. We'll continue the current medical treatment. I suggested to the surgical team that we should start the patient on anticoagulation in view of the recent history of stroke as well as intermittent episodes of A. fib. Objective - Vital Signs Vital signs: Vital Signs Temp 97 F L 03/18/17 09:00 Pulse 79 03/18/17 09:00 Resp 21 03/18/17 09:00 BP 117/57 03/18/17 09:00 Pulse Ox 92 L 03/18/17 09:00 Intake & Output 03/17/17 03/18/17 03/18/17 18:59 06:59 18:59 Intake Total 508.359 280.851 285.857 Output Total 1885 840 175 Balance -1376.641 -559.149 110.857 Weight 88.2 kg 88.2 kg Intake: IV 261 250 40 Sodium Chloride 0.9% 1, 240 220 40 000 ml @ 20 mls/hr IV . Q24H [facility] Rx#:[id number] pressure bag 21 30 Intake, IV Titration 87.359 30.851 65.857 Amount Dexmedetomidine/0.9% NaCl 38.339 (Pmx) 400 mcg In Empty Bag 1 bag @ Titrate IV . Q0M [facility] Rx#:[id number] Insulin Regular 100 unit 49.020 30.851 15.857 In Sodium Chloride 0.9% 100 ml @ Per Protocol IV .Q0M [facility] Rx#:[id number] cefTRIAXone 1,000 mg In 50 Sodium Chloride 0.9% 50 ml @ 100 mls/hr IVPB Q24HR [facility] Rx#:[id number] Oral 180 Tube Feeding 160 Output: Chest Tube Drainage 0 0 Chest Tube Left Lateral 0 0 Chest Urine 1885 840 175 Other: Voiding Method Indwelling Catheter Indwelling Catheter Indwelling Catheter # Voids 35 ABP, PAP, CO, CI - Last Documented Arterial Blood Pressure 130/48 Pulmonary Artery Pressure 43/32 Cardiac Output 3.9 Cardiac Index 2.3 - Constitutional General appearance: Present: no acute distress - Respiratory Respiratory: bilateral: diminished - Cardiovascular Rhythm: regular Heart sounds: normal: S1, S2 - Labs CBC & Chem 7: 03/18/17 03:30 03/18/17 03:30 Labs: Abnormal Lab Results - Last 24 Hours (Table) 03/17/17 03/17/17 03/17/17 Range/Units 10:04 11:49 13:05 WBC (3.8-10.6) k/uL RBC (3.80-5.40) m/uL Hgb (11.4-16.0) gm/dL Hct (34.0-46.0) % MCV (80.0-100.0) fL MCH (25.0-35.0) pg MCHC (31.0-37.0) g/dL RDW (11.5-15.5) % Neutrophils # (1.3-7.7) k/uL ABG pH 7.47 H (7.35-7.45) ABG pCO2 30 L (35-45) mmHg ABG O2 Saturation 98.0 H (94-97) % Sodium (137-145) mmol/L Chloride (98-107) mmol/L Carbon Dioxide (22-30) mmol/L BUN (7-17) mg/dL Glucose (74-99) mg/dL POC Glucose (mg/dL) 114 H 125 H (75-99) mg/dL Calcium (8.4-10.2) mg/dL Magnesium (1.6-2.3) mg/dL AST (14-36) U/L ALT (9-52) U/L Alkaline Phosphatase (38-126) U/L Total Protein (6.3-8.2) g/dL Albumin (3.5-5.0) g/dL 03/17/17 03/17/17 03/17/17 Range/Units 13:56 16:07 18:05 WBC (3.8-10.6) k/uL RBC (3.80-5.40) m/uL Hgb (11.4-16.0) gm/dL Hct (34.0-46.0) % MCV (80.0-100.0) fL MCH (25.0-35.0) pg MCHC (31.0-37.0) g/dL RDW (11.5-15.5) % Neutrophils # (1.3-7.7) k/uL ABG pH (7.35-7.45) ABG pCO2 (35-45) mmHg ABG O2 Saturation (94-97) % Sodium (137-145) mmol/L Chloride (98-107) mmol/L Carbon Dioxide (22-30) mmol/L BUN (7-17) mg/dL Glucose (74-99) mg/dL POC Glucose (mg/dL) 132 H 105 H 119 H (75-99) mg/dL Calcium (8.4-10.2) mg/dL Magnesium (1.6-2.3) mg/dL AST (14-36) U/L ALT (9-52) U/L Alkaline Phosphatase (38-126) U/L Total Protein (6.3-8.2) g/dL Albumin (3.5-5.0) g/dL 03/17/17 03/17/17 03/18/17 Range/Units 19:51 23:49 03:30 WBC 11.3 H (3.8-10.6) k/uL RBC 3.49 L (3.80-5.40) m/uL Hgb 8.3 L (11.4-16.0) gm/dL Hct 27.6 L (34.0-46.0) % MCV 78.9 L (80.0-100.0) fL MCH 23.7 L (25.0-35.0) pg MCHC 30.0 L (31.0-37.0) g/dL RDW 24.0 H (11.5-15.5) % Neutrophils # 8.7 H (1.3-7.7) k/uL ABG pH (7.35-7.45) ABG pCO2 (35-45) mmHg ABG O2 Saturation (94-97) % Sodium (137-145) mmol/L Chloride (98-107) mmol/L Carbon Dioxide (22-30) mmol/L BUN (7-17) mg/dL Glucose (74-99) mg/dL POC Glucose (mg/dL) 137 H 121 H (75-99) mg/dL Calcium (8.4-10.2) mg/dL Magnesium (1.6-2.3) mg/dL AST (14-36) U/L ALT (9-52) U/L Alkaline Phosphatase (38-126) U/L Total Protein (6.3-8.2) g/dL Albumin (3.5-5.0) g/dL 03/18/17 03/18/17 Range/Units 03:30 05:53 WBC (3.8-10.6) k/uL RBC (3.80-5.40) m/uL Hgb (11.4-16.0) gm/dL Hct (34.0-46.0) % MCV (80.0-100.0) fL MCH (25.0-35.0) pg MCHC (31.0-37.0) g/dL RDW (11.5-15.5) % Neutrophils # (1.3-7.7) k/uL ABG pH (7.35-7.45) ABG pCO2 (35-45) mmHg ABG O2 Saturation (94-97) % Sodium 147 H (137-145) mmol/L Chloride 115 H (98-107) mmol/L Carbon Dioxide 20 L (22-30) mmol/L BUN 58 H (7-17) mg/dL Glucose 114 H (74-99) mg/dL POC Glucose (mg/dL) 132 H (75-99) mg/dL Calcium 8.2 L (8.4-10.2) mg/dL Magnesium 2.8 H (1.6-2.3) mg/dL AST 41 H (14-36) U/L ALT 57 H (9-52) U/L Alkaline Phosphatase 184 H (38-126) U/L Total Protein 5.2 L (6.3-8.2) g/dL Albumin 2.6 L (3.5-5.0) g/dL Assessment and Plan Plan: Continue the current medical treatment which included dual antiplatelet therapy , metoprolol, lisinopril, digoxin and amiodarone. I suggested that the patient need to be started on anticoagulation.
[2017-03-18 10:32] LABS: Glucose,Whole Blood 102 mg/dL (75-99)
--- NOTE | 2017-03-18 12:00 | P.PN ---
Subjective Principal diagnosis: Status post aortic valve replacement, postoperative day # 13 76-year-old male patient is postop day #4 following aortic valve replacement. Patient also is known to have previous CVA, bronchial asthma, hyperlipidemia, diabetes and hypertension. Surgery was done for bicuspid aortic valve and the patient is status post aortic valve replacement, bioprosthetic valve. Postop, the patient developed some mediastinal bleeding with hypotension. Based on that the patient was taken back to the operating room to control the bleed and during the process the patient was given a total of 4 units of packed RBC, 2 units of fresh frozen plasma one unit of platelets. The patient was kept intubated on mechanical ventilator. As mentioned today's postop day #4 On today's evaluation, the patient remains on a mechanical ventilator. The patient is an assist-control mode of ventilation with a rate of 24, tidal volume 350, FiO2 of 60% and a PEEP of 10. She is intubated with a #8 ET tube. Chest x-ray from today shows adequate expansion of both lungs. Chest tubes are in place. ET tube is in place. She has some mild cardiomegaly. No sinus complaints or pleural effusions. No pneumothorax seen. The blood gases from this morning showed a pH of 7.38 with a pCO2 of 36 and pO2 of 76. Hemodynamically the patient is stable. The patient is producing adequate amount of urine output. The patient is on no pressors. The patient is on no clevidipine drip. Blood pressure is on under good control. The chest tubes are still in place. The patient has a right pleural and left pleural chest tube and 2 mediastinal chest tubes. All of them are showing minimal amount of drainage and the patient would have the mediastinal and the right sided chest tube pulled today. Platelet count improved and it's up to 148. Hemoglobin stable at 8.1. She is sedated with Diprivan. She is calm and comfortable. On 03/09/2017 the patient is still being seen in follow-up. The patient has been quite stable overnight. The patient is on a mechanical ventilator and based on the most is a vent changes she is on a rate of 24, tidal volume 450, FiO2 has been down to 40% and I cut down the PEEP down to 8 and then down to 5 cm of water. The patient's chest x-ray showing cardiomegaly and there is a component of pulmonary vessel congestion. The patient was given 20 mg of IV Lasix this morning. She is producing adequate amount of urine output. The mediastinal and the right pleural chest tube has been removed. The patient has a left pleural chest tube only. No fever. No chills. Tolerating tube feeds. No other significant events overnight. Blood gases from this morning showed a pH of 7.48 with a pCO2 of 29 and a pO2 of 83. Hemoglobin stable at 8.5. On 03/10/2017 the patient is being seen in follow-up. She was taken off sedation this morning and she was very slow in recovering from sedation. Despite being off the sedation for few hours, the patient is still lethargic. She is arousable and she can follow simple commands. She is not fully alert however. She remains on same vent settings overnight which included an assist- control of 24, tidal volume 450, FiO2 of 40% and a PEEP of 5. Blood gases from this morning showed a component of respiratory alkalosis. Chest x-ray shows cardiomegaly with pulmonary vascular congestion and the patient was given 20 mg of IV Lasix earlier by cardiothoracic surgery. Mediastinal and right pleural chest tube has been removed. The patient has a left-sided chest tube in place. Sternum stable clean and intact. No major edema in lower extremities. After being taken off sedation, check weaning parameters and the patient was becoming quite restless even on assist control mode of ventilation. She was becoming tachypneic and her minute ventilation was high. She was able to generate more than 400 mL of tidal volume and a support of 5 and a PEEP of 5. At that point, I made a decision to extubate this patient to a BiPAP at a pressure of 12/5 cm of water and FiO2 of 60%. One hour following extubation, blood gases was done and showed a pH of 7.42 with a pCO2 of 37 and pO2 of 76. She is still lethargic and somewhat sleepy. She is arousable however. She did have some hypertensive reaction for which she was given 5 g of IV Lopressor. She is a bit anxious and she'll be given 1 mg of Ativan. Additional dose of 40 because of Lasix will be given. I am inclined not to reintubate this patient. I'm trying to stabilize her condition to avoid reintubation. Note that she has a restrictive lung disease pH is obese. Her FVC and FEV1 were in the 55% of age preoperatively. Her lung volumes are small on today's chest x-ray. On 03/11/2017 the patient is being seen in follow-up. After being extubated for few hours the patient had to be intubated. Immediately after the intubation she had frothy rest or secretions with orotracheal tube and she was suspected to be in acute pulmonary edema. Based on that the patient with diuresis with IV Lasix and since then her fluid balance has been negative. She has diuresed another 1 L since yesterday. She is sedated on Diprivan and she is calm and comfortable. She is on a mechanical ventilator on assist control mode at the rate of 2, tidal volume 400, FiO2 of 40% and a PEEP of 7. The vent changes were adjusted this morning after I reviewed the blood gases and a chest x-ray. The chest x-ray shows some cardiomegaly and mild four-vessel congestion and a blood gas showed a pH of 7.42 with a pCO2 of 38 and pO2 136. Earlier this morning the patient was also having A dose of hypotension. His systolic blood pressure was dropping in the mid 80s. She was placed on norepinephrine infusion and was running at around 4-5 mics to maintain a mean artery pressure above 65. Cardiac rhythm is atrial fibrillation. She was having episodes of bradycardia and tachycardia. I noted on several occasions that the patient's backup pacemaker was discharging. At the rate is stage became tachycardic. CT surgery was involved and the patient was given digoxin 0.5 mg. She is currently ventricular paced at the rate of 65. The underlying rhythm was asystole. Note that she had gotten her metoprolol earlier this morning. She is back on her tube feeds and currently she is on vital high protein at the rate of 40 mL an hour. In terms of fluid balance, she is on IV D5 water at the rate of 40. Producing somewhere between 75 mL an hour of urine output. Afebrile. The patient is seen again today 03/12/2017 in follow-up in the intensive care unit. She remains intubated and on the mechanical ventilator. Currently in an assist-control mode with a rate of 12, tidal volume 400, FiO2 40 and a PEEP of 5. Morning blood gases reveal a P O2 of 74, pCO2 of 34 and a pH of 7.44. Today 's chest x-ray revealed overall stable findings, there is chronic parenchymal changes and cardiomegaly with patchy left basilar atelectasis. No new infiltrates are seen. She remains on norepinephrine at 3 mcg/m to maintain mean arterial pressure of 65 and greater. She is sedated on propofol at 35 mcg/ kg/m. She is on insulin drip at 5.5 units per hour. Her Vital high-protein tube feeds are currently on hold as the patient has been noticed to be pacemaker dependent and the plan is for insertion of a permanent pacemaker today. On 03/13/2017 the patient is being seen in follow-up in the intensive care unit. She is was sedated and she is calm and comfortable. Noted the patient underwent a pacemaker insertion yesterday for postoperative asystole. The patient postop developed a 50% pneumothorax on the left. A chest tube was inserted in the intensive care unit without any complication today's chest x- ray shows full expansion of the left lung without evidence of any pneumothorax or air leak. Meanwhile, the patient is still on a mechanical ventilator assist control mode with tidal volume 400, FiO2 of 50% and a PEEP of 5. The blood gases showed a pH of 7.5 with a pCO2 of 31 and pO2 of 60. Chest x-ray is showing thyromegaly and pulmonary vessel congestion. Sodium level is at 142. Hemoglobin is at 7.3 which is a gram lower compared to yesterday. A sedation holiday will be done and we'll check again the weaning parameters., Judgment the patient is not ready to wean yet. Oxidation is still borderline and there is not a whole lot of room for potential extubation on today's evaluation. She is tolerating her tube feeds. She is on 50 mics of the prevent. No fever. No chills. Sternum stable clean and intact. On 03/14/2017 the patient is being seen in follow-up in the intensive care units. She is calm and comfortable. She was given a sedation holiday and she woke up very appropriately today. She is following commands. She is still intubated on a mechanical ventilator. She is an assist-control mode at the rate of 12, FiO2 of 50%, tidal volume 400 and a PEEP of 5. Chest x-ray showing cardiomegaly, there is a left-sided chest tube in place without evidence of pneumothorax, ET tube is in a good location there is some mild pulmonary vascular congestion. The patient is on no pressors. Overnight she went into each of fibrillation with rapid ventricular response. She was placed on amiodarone drip. Note that she has a pacemaker in place as the patient went into complete asystole post AVR. She is producing adequate amount of urine output. Renal function is stable. There is Klebsiella growing in her sputum and based on that the patient be started on IV antibiotics. She is afebrile for now. No leukocytosis. Hemoglobin today is at 8.3. On 03/15/2017, patient remains on mechanical ventilation, earlier trial of weaning and holding sedation failed, patient was noted to be extremely agitated tachypneic and tachycardic, hence she had to be placed back on propofol, and back on assist control mode of mechanical ventilation. Patient is arousable, follows simple instructions, but clearly her gases are marginal, and her weaning parameters are poor considering her extreme agitation once off sedation. Her ventilator settings were reviewed, she is presently on FiO2 of 45 %, tidal volume of 400, PEEP of 5. Her flow rate is about 60 L/m, and that gives us an inspiratory and expiratory ratio of 1:2. ABG showed a pO2 of 66 pCO2 of 28 pH of 7.50, hence I cut down her before meals rate to 16. Her FiO2 is now 45% instead of 40%. CBC showed the PEEP cigar of 11.8 hemoglobin of 7.9. BUN is 65 creatinine of 1.09. Gram stain of the sputum and culture showed Klebsiella oxytoca patient is on Rocephin. On 03/16/2017, patient remains on mechanical ventilation, I went ahead and stopped her propofol, patient seems to be appropriate, follows simple instructions, but she seems to be generally weak and frail. I would proceed later with pressure support and CPAP, and if she gets agitated may utilize a Precedex. Reviewed her labs, ABG showed a pO2 of 85 pCO2 of 53 3 pH of 7.42. Hemoglobin is 7.7, renal profile showed a BUN of 64 creatinine of 1.0. Chest x- ray showed mostly by basilar opacities and strongly suspicious for atelectasis. Doubt underlying pneumonia. On 03/17/2017, patient remains on mechanical ventilation, she is now on Precedex replacing propofol, seems to be appropriate, however she was noted to have some weakness on the left side, CT of the brain was done earlier today and it came back negative for acute process. Patient was kept on Precedex, she was placed on pressure support of 8 and CPAP for almost an hour and she seemed to do quite well. Hence after reviewing all her labs, x-ray, and CT of the brain, I extubated the patient to BiPAP. So far the process of weaning and extubation seems to be tolerated. ABG this morning showed a pO2 of 89 pCO2 of 34 pH of 7.42 and this was on assist control mode of mechanical ventilation, and FiO2 of 45%. Patient was reevaluated today on 03/17/2017, she seems to have tolerated the extubation well over the last 24 hours. However her overall clinical condition remains marginal, patient has some difficulty swallowing, and a nasogastric tube was placed, she is not quite ready to swallow on her own at this point. Swallow evaluation will be done, in the meantime we'll try to feed the patient via nasogastric tube. Patient seems to be generally weak, frail, she is doing very poorly when it comes incentive spirometry for deep coughing and deep breathing. Thyroid profile was ordered. Patient will definitely need a vermin exterminator of rehab and long-term of occupational and physical therapy. Labs were reviewed CBC is relatively normal hemoglobin is 8.3 electrolytes are noted, BUN is 58 creatinine is 1.0. Patient seems to be quite edematous, hence one dose of Lasix will be given. Chest x-ray is showing mostly atelectasis at the bases. Objective - Vital Signs Vital signs: Vital Signs Temp 97 F L 03/18/17 09:00 Pulse 78 03/18/17 10:00 Resp 22 03/18/17 10:00 BP 113/56 03/18/17 10:00 Pulse Ox 93 L 03/18/17 10:00 Intake & Output 03/17/17 03/18/17 03/18/17 18:59 06:59 18:59 Intake Total 508.359 280.851 305.857 Output Total 1885 840 235 Balance -1376.641 -559.149 70.857 Weight 88.2 kg 88.2 kg Intake: IV 261 250 60 Sodium Chloride 0.9% 1, 240 220 60 000 ml @ 20 mls/hr IV . Q24H [facility] Rx#:[id number] pressure bag 21 30 Intake, IV Titration 87.359 30.851 65.857 Amount Dexmedetomidine/0.9% NaCl 38.339 (Pmx) 400 mcg In Empty Bag 1 bag @ Titrate IV . Q0M [facility] Rx#:[id number] Insulin Regular 100 unit 49.020 30.851 15.857 In Sodium Chloride 0.9% 100 ml @ Per Protocol IV .Q0M [facility] Rx#:[id number] cefTRIAXone 1,000 mg In 50 Sodium Chloride 0.9% 50 ml @ 100 mls/hr IVPB Q24HR [facility] Rx#:[id number] Oral 180 Tube Feeding 160 Output: Chest Tube Drainage 0 0 Chest Tube Left Lateral 0 0 Chest Urine 1885 840 235 Other: Voiding Method Indwelling Catheter Indwelling Catheter Indwelling Catheter # Voids 35 ABP, PAP, CO, CI - Last Documented Arterial Blood Pressure 130/48 Pulmonary Artery Pressure 43/32 Cardiac Output 3.9 Cardiac Index 2.3 - Exam Physical Exam: Revealed a 76-year-old female on nasal cannula, looks frail weak and pale, presently on 4 L nasal cannula. With O2 saturation in the low 90s. HEENT:[Neck is supple.] [No neck masses.] [No thyromegaly.] [No JVD.]. Nasogastric tube is intact.. Chest: [Extremely diminished breath sounds at the bases, no crackles or rhonchi or wheezes..] Cardiac Exam: [Normal S1 and S2, no S3 gallop, no murmur.] Abdomen: [Soft, nontender, no megaly, no rebound, no guarding, normal bowel sounds.] Extremities: [No clubbing, 2+ + bipedal edema, no cyanosis.] Neurological Exam: [No focal neurologic deficit.] However, the patient seems to be generally weak with mostly proximal weakness of her muscles. - Labs CBC & Chem 7: 03/18/17 03:30 03/18/17 03:30 Labs: Abnormal Lab Results - Last 24 Hours (Table) 03/17/17 03/17/17 03/17/17 Range/Units 13:05 13:56 16:07 WBC (3.8-10.6) k/uL RBC (3.80-5.40) m/uL Hgb (11.4-16.0) gm/dL Hct (34.0-46.0) % MCV (80.0-100.0) fL MCH (25.0-35.0) pg MCHC (31.0-37.0) g/dL RDW (11.5-15.5) % Neutrophils # (1.3-7.7) k/uL ABG pH 7.47 H (7.35-7.45) ABG pCO2 30 L (35-45) mmHg ABG O2 Saturation 98.0 H (94-97) % Sodium (137-145) mmol/L Chloride (98-107) mmol/L Carbon Dioxide (22-30) mmol/L BUN (7-17) mg/dL Glucose (74-99) mg/dL POC Glucose (mg/dL) 132 H 105 H (75-99) mg/dL Calcium (8.4-10.2) mg/dL Magnesium (1.6-2.3) mg/dL AST (14-36) U/L ALT (9-52) U/L Alkaline Phosphatase (38-126) U/L Total Protein (6.3-8.2) g/dL Albumin (3.5-5.0) g/dL 03/17/17 03/17/17 03/17/17 Range/Units 18:05 19:51 23:49 WBC (3.8-10.6) k/uL RBC (3.80-5.40) m/uL Hgb (11.4-16.0) gm/dL Hct (34.0-46.0) % MCV (80.0-100.0) fL MCH (25.0-35.0) pg MCHC (31.0-37.0) g/dL RDW (11.5-15.5) % Neutrophils # (1.3-7.7) k/uL ABG pH (7.35-7.45) ABG pCO2 (35-45) mmHg ABG O2 Saturation (94-97) % Sodium (137-145) mmol/L Chloride (98-107) mmol/L Carbon Dioxide (22-30) mmol/L BUN (7-17) mg/dL Glucose (74-99) mg/dL POC Glucose (mg/dL) 119 H 137 H 121 H (75-99) mg/dL Calcium (8.4-10.2) mg/dL Magnesium (1.6-2.3) mg/dL AST (14-36) U/L ALT (9-52) U/L Alkaline Phosphatase (38-126) U/L Total Protein (6.3-8.2) g/dL Albumin (3.5-5.0) g/dL 03/18/17 03/18/17 03/18/17 Range/Units 03:30 03:30 05:53 WBC 11.3 H (3.8-10.6) k/uL RBC 3.49 L (3.80-5.40) m/uL Hgb 8.3 L (11.4-16.0) gm/dL Hct 27.6 L (34.0-46.0) % MCV 78.9 L (80.0-100.0) fL MCH 23.7 L (25.0-35.0) pg MCHC 30.0 L (31.0-37.0) g/dL RDW 24.0 H (11.5-15.5) % Neutrophils # 8.7 H (1.3-7.7) k/uL ABG pH (7.35-7.45) ABG pCO2 (35-45) mmHg ABG O2 Saturation (94-97) % Sodium 147 H (137-145) mmol/L Chloride 115 H (98-107) mmol/L Carbon Dioxide 20 L (22-30) mmol/L BUN 58 H (7-17) mg/dL Glucose 114 H (74-99) mg/dL POC Glucose (mg/dL) 132 H (75-99) mg/dL Calcium 8.2 L (8.4-10.2) mg/dL Magnesium 2.8 H (1.6-2.3) mg/dL AST 41 H (14-36) U/L ALT 57 H (9-52) U/L Alkaline Phosphatase 184 H (38-126) U/L Total Protein 5.2 L (6.3-8.2) g/dL Albumin 2.6 L (3.5-5.0) g/dL 03/18/17 Range/Units 10:30 WBC (3.8-10.6) k/uL RBC (3.80-5.40) m/uL Hgb (11.4-16.0) gm/dL Hct (34.0-46.0) % MCV (80.0-100.0) fL MCH (25.0-35.0) pg MCHC (31.0-37.0) g/dL RDW (11.5-15.5) % Neutrophils # (1.3-7.7) k/uL ABG pH (7.35-7.45) ABG pCO2 (35-45) mmHg ABG O2 Saturation (94-97) % Sodium (137-145) mmol/L Chloride (98-107) mmol/L Carbon Dioxide (22-30) mmol/L BUN (7-17) mg/dL Glucose (74-99) mg/dL POC Glucose (mg/dL) 102 H (75-99) mg/dL Calcium (8.4-10.2) mg/dL Magnesium (1.6-2.3) mg/dL AST (14-36) U/L ALT (9-52) U/L Alkaline Phosphatase (38-126) U/L Total Protein (6.3-8.2) g/dL Albumin (3.5-5.0) g/dL Assessment and Plan Plan: 1 aortic valve replacement for severe bicuspid aortic valve stenosis, patient is postop day # 13 2 postoperative mediastinal bleeding, recovered 3 postoperative cardiac arrhythmia, asystole, status post insertion of a pacemaker. 4 acute hypoxic respiratory failure, expected outcome of surgery. The patient was successfully extubated on 03/17/2017. 5 iatrogenic left-sided pneumothorax status post chest tube insertion with successful expansion of the left lung without evidence of any air leak. 6 hypertension, history of 7 CVA/TIA, history of 8 bronchial asthma, history of 9 obesity 10 restrictive lung physiology on preop spirometry with an FEV1 of 56% of predicted. 11 thrombocytopenia, recovered 12 postoperative anemia, expected, hemoglobin is at 8.3 Recommendation: Continue present supportive care measures, incentive spirometry , physical therapy, address nutrition via nasogastric tube, swelling evaluation , patient is still quite marginal considering her profound weakness. Continue O2 via nasal cannula, may use BiPAP if needed. No plans to transfer the patient out of the ICU at this point yet. Prognosis remains guarded. Time with Patient: Less than 30
--- NOTE | 2017-03-18 12:12 | P.PN ---
Subjective Principal diagnosis: Bicuspid aortic valve with critical aortic stenosis, aortic insufficiency. CAD. Diabetes mellitus. Hypertension. History of TIAs, neuropathy, pericarditis, scoliosis, brain concussion. History of paroxysmal atrial fibrillation POD #14 elective aortic valve replacement with #25 mm magna ease bioprosthetic aortic valve, a clip ligation into left atrial appendage with a #35 mm AtriClip and intraoperative transesophageal echocardiogram. Postoperative acute blood loss anemia, a potential expected outcome of surgery. POD #14 reexploration of the chest, evacuation of clot, control of bleed. Postoperative hypoxic respiratory failure requiring prolonged mechanical ventilation, a potential expected outcome of surgery. POD #12 placement of right pleural chest tube for pleural effusion Postoperative hypovolemic shock, inherent to the surgery Postoperative paroxysmal atrial fibrillation, and expected outcome of surgery POD #6 dual-chamber pacemaker insertion, transvenous under fluoroscopic vision for sick sinus syndrome versus asystole, inherent to aortic valve surgery. POD #6 placement of left pleural chest tube for left pneumothorax as a result of pacemaker placement, inherent to the surgery. Sputum culture positive for Klebsiella, antibiotics per pulmonology. Patient is currently sitting up in bed in no acute distress. Was extubated successfully yesterday meriting , currently on 4 L nasal cannula. Awake and alert, following commands although still unable to move the left extremities. Unable to swallow last night so NG tube was placed for medication administration. Objective - Vital Signs Vital signs: Vital Signs Temp 98.7 F 03/18/17 04:00 Pulse 77 03/18/17 08:00 Resp 17 03/18/17 08:00 BP 126/50 03/18/17 08:00 Pulse Ox 94 L 03/18/17 08:00 Intake & Output 03/17/17 03/18/17 03/18/17 18:59 06:59 18:59 Intake Total 508.359 280.851 Output Total 1885 840 Balance -1376.641 -559.149 Weight 88.2 kg Intake: IV 261 250 Sodium Chloride 0.9% 1, 240 220 000 ml @ 20 mls/hr IV . Q24H [facility] Rx#:[id number] pressure bag 21 30 Intake, IV Titration 87.359 30.851 Amount Dexmedetomidine/0.9% NaCl 38.339 (Pmx) 400 mcg In Empty Bag 1 bag @ Titrate IV . Q0M [facility] Rx#:[id number] Insulin Regular 100 unit 49.020 30.851 In Sodium Chloride 0.9% 100 ml @ Per Protocol IV .Q0M [facility] Rx#:[id number] Tube Feeding 160 Output: Chest Tube Drainage 0 0 Chest Tube Left Lateral 0 0 Chest Urine 6015 840 Other: Voiding Method Indwelling Catheter Indwelling Catheter ABP, PAP, CO, CI - Last Documented Arterial Blood Pressure 130/48 Pulmonary Artery Pressure 43/32 Cardiac Output 3.9 Cardiac Index 2.3 - Constitutional General appearance: Present: cooperative, obese - Respiratory Details: Lungs sounds diminished bilaterally. Respirations even, nonlabored. Currently on 4 L nasal cannula with oxygen saturation 95%. Unable to use incentive spirometry appropriately. - Cardiovascular Details: Current rhythm ventricular paced with underlying atrial fibrillation , controlled rate. sternum stable. Heart hugger in place with patient unable to use appropriately. Palpable pulses bilaterally. Trace edema still present to left upper extremity. Right radial A-line, left brachial PICC line present. Teds/SCDs present. - Gastrointestinal Gastrointestinal Comment(s): Abdomen soft, nontender, nondistended. Active bowel sounds present 4 quadrants. NG tube present. - Genitourinary Genitourinary Comment(s): Cuellar present draining clear, yellow urine. Output 60-75 mL per hour overnight. Excellent diuresis after Lasix given yesterday. - Integumentary Integumentary Comment(s): Anterior chest sternal incision well approximated with Dermabond dressing and covered with dry intact 4 x 4's. Left upper anterior chest wall pacemaker site well approximated with Steri-Strips and covered with dry intact dressing. - Neurologic Neurologic Comment(s): Nods, shakes head appropriately. Moves right sided extremities to command , left sided extremities withdraw to painful stimuli. - Musculoskeletal Musculoskeletal: Present: generalized weakness - Psychiatric Psychiatric Comment(s): Flat affect. - Allied health notes Allied health notes reviewed: nursing - Labs CBC & Chem 7: 03/18/17 03:30 03/18/17 03:30 Labs: Abnormal Lab Results - Last 24 Hours (Table) 03/17/17 03/17/17 03/17/17 Range/Units 08:00 10:04 11:49 WBC (3.8-10.6) k/uL RBC (3.80-5.40) m/uL Hgb (11.4-16.0) gm/dL Hct (34.0-46.0) % MCV (80.0-100.0) fL MCH (25.0-35.0) pg MCHC (31.0-37.0) g/dL RDW (11.5-15.5) % Neutrophils # (1.3-7.7) k/uL ABG pH (7.35-7.45) ABG pCO2 34 L (35-45) mmHg ABG O2 Saturation (94-97) % Sodium (137-145) mmol/L Chloride (98-107) mmol/L Carbon Dioxide (22-30) mmol/L BUN (7-17) mg/dL Glucose (74-99) mg/dL POC Glucose (mg/dL) 114 H 125 H (75-99) mg/dL Calcium (8.4-10.2) mg/dL Magnesium (1.6-2.3) mg/dL AST (14-36) U/L ALT (9-52) U/L Alkaline Phosphatase (38-126) U/L Total Protein (6.3-8.2) g/dL Albumin (3.5-5.0) g/dL 03/17/17 03/17/17 03/17/17 Range/Units 13:05 13:56 16:07 WBC (3.8-10.6) k/uL RBC (3.80-5.40) m/uL Hgb (11.4-16.0) gm/dL Hct (34.0-46.0) % MCV (80.0-100.0) fL MCH (25.0-35.0) pg MCHC (31.0-37.0) g/dL RDW (11.5-15.5) % Neutrophils # (1.3-7.7) k/uL ABG pH 7.47 H (7.35-7.45) ABG pCO2 30 L (35-45) mmHg ABG O2 Saturation 98.0 H (94-97) % Sodium (137-145) mmol/L Chloride (98-107) mmol/L Carbon Dioxide (22-30) mmol/L BUN (7-17) mg/dL Glucose (74-99) mg/dL POC Glucose (mg/dL) 132 H 105 H (75-99) mg/dL Calcium (8.4-10.2) mg/dL Magnesium (1.6-2.3) mg/dL AST (14-36) U/L ALT (9-52) U/L Alkaline Phosphatase (38-126) U/L Total Protein (6.3-8.2) g/dL Albumin (3.5-5.0) g/dL 03/17/17 03/17/17 03/17/17 Range/Units 18:05 19:51 23:49 WBC (3.8-10.6) k/uL RBC (3.80-5.40) m/uL Hgb (11.4-16.0) gm/dL Hct (34.0-46.0) % MCV (80.0-100.0) fL MCH (25.0-35.0) pg MCHC (31.0-37.0) g/dL RDW (11.5-15.5) % Neutrophils # (1.3-7.7) k/uL ABG pH (7.35-7.45) ABG pCO2 (35-45) mmHg ABG O2 Saturation (94-97) % Sodium (137-145) mmol/L Chloride (98-107) mmol/L Carbon Dioxide (22-30) mmol/L BUN (7-17) mg/dL Glucose (74-99) mg/dL POC Glucose (mg/dL) 119 H 137 H 121 H (75-99) mg/dL Calcium (8.4-10.2) mg/dL Magnesium (1.6-2.3) mg/dL AST (14-36) U/L ALT (9-52) U/L Alkaline Phosphatase (38-126) U/L Total Protein (6.3-8.2) g/dL Albumin (3.5-5.0) g/dL 03/18/17 03/18/17 03/18/17 Range/Units 03:30 03:30 05:53 WBC 11.3 H (3.8-10.6) k/uL RBC 3.49 L (3.80-5.40) m/uL Hgb 8.3 L (11.4-16.0) gm/dL Hct 27.6 L (34.0-46.0) % MCV 78.9 L (80.0-100.0) fL MCH 23.7 L (25.0-35.0) pg MCHC 30.0 L (31.0-37.0) g/dL RDW 24.0 H (11.5-15.5) % Neutrophils # 8.7 H (1.3-7.7) k/uL ABG pH (7.35-7.45) ABG pCO2 (35-45) mmHg ABG O2 Saturation (94-97) % Sodium 147 H (137-145) mmol/L Chloride 115 H (98-107) mmol/L Carbon Dioxide 20 L (22-30) mmol/L BUN 58 H (7-17) mg/dL Glucose 114 H (74-99) mg/dL POC Glucose (mg/dL) 132 H (75-99) mg/dL Calcium 8.2 L (8.4-10.2) mg/dL Magnesium 2.8 H (1.6-2.3) mg/dL AST 41 H (14-36) U/L ALT 57 H (9-52) U/L Alkaline Phosphatase 184 H (38-126) U/L Total Protein 5.2 L (6.3-8.2) g/dL Albumin 2.6 L (3.5-5.0) g/dL - Imaging and Cardiology Chest x-ray: report reviewed, image reviewed Assessment and Plan (1) History of TIA (transient ischemic attack) Status: Acute (2) Hyperlipidemia Status: Acute (3) Osteoarthritis Status: Acute (4) Acute blood loss as cause of postoperative anemia Status: Acute (5) Paroxysmal atrial fibrillation Status: Acute (6) Status post aortic valve replacement Status: Acute (7) Bicuspid aortic valve Status: Acute (8) Diabetes mellitus, insulin dependent (IDDM), controlled Status: Acute (9) Hypertension Status: Acute (10) Severe aortic stenosis Status: Acute Plan: 1. Continue aspirin, Plavix, beta daysi, JENNIFER inhibitor. Statin on hold secondary to elevated liver enzymes, will restart when able. Will maximize beta daysi therapy as able. Continue amiodarone for A. fib prophylaxis. 2. Wean O2 as tolerated. Encourage incentive spirometry use. Sputum culture positive for Klebsiella, continue ceftriaxone per pulmonary services. 3. Will obtain swallow eval from speech therapy. If patient remains unable to swallow we will resume tube feedings through NG tube for nutrition. 4. Increase activity as tolerated. Physical therapy to follow. 5. Continue Cuellar for strict accurate intake and output. 6. Monitor daily labs, chest x-rays. 7. GI/DVT prophylaxis. 8. Insulin management per primary service. 9. More recommendations as patient progresses. Time with Patient: Greater than 30
[2017-03-18 12:56] LABS: Glucose,Whole Blood 121 mg/dL (75-99)
[2017-03-18] MEDS: CYANOCOBALAMIN 500 MCG TAB PO SCH (15:39)
[2017-03-18] MEDS: INSULIN LISPRO (humaLOG) 300 UNIT/3 ML VIAL SQ SCH ×2 (15:40→17:57)
[2017-03-18 17:58] LABS: Glucose,Whole Blood 168 mg/dL (75-99)
[2017-03-18] MEDS: SODIUM CHLORIDE 0.9% 1,000 ML IV SCH (20:10)
[2017-03-19] MEDS: SENNOSIDES-DOCUSATE SODIUM 1 EACH TAB PO SCH ×2 (01:06→22:03)
[2017-03-19] MEDS: OFLOXACIN 0.3% OPHTH DROPS 5 ML BOTTLE RIGHT EYE SCH ×4 (01:07→19:13)
[2017-03-19] MEDS: prednisoLONE ACETATE 1% OPHTH DROPS 1 ML BTL RIGHT EYE SCH ×4 (01:07→19:13)
[2017-03-19] MEDS: INSULIN LISPRO (humaLOG) 300 UNIT/3 ML VIAL SQ SCH ×4 (01:07→19:11)
[2017-03-19 01:08] LABS: Glucose,Whole Blood 196 mg/dL (75-99)
[2017-03-19] MEDS: HEPARIN SODIUM,PORCINE 5,000 UNIT/ML 1 ML VIAL SQ SCH ×3 (05:23→21:53)
[2017-03-19 05:28] LABS: Anisocytosis Marked; CH 24.5; CHCM 30.8; HCT 29.2 % (34.0-46.0); HDW 4.08; HGB 8.8 gm/dL (11.4-16.0); Hypochromasia Marked; MCH 24.1 pg (25.0-35.0); MCV 80.4 fL (80.0-100.0); Mean Platelet Volume 8.7; Microcytosis Moderate; Poikilocytosis Moderate; RBC 3.64 m/uL (3.80-5.40); RDW 24.1 % (11.5-15.5); WBC (Perox) 10.92
[2017-03-19 05:35] LABS: Ionized Calcium 5.1 mg/dL (4.5-5.3)
[2017-03-19 05:42] LABS: Calcium 8.6 mg/dL (8.4-10.2); Magnesium 2.8 mg/dL (1.6-2.3); Phosphorous 4.7 mg/dL (2.5-4.5); Potassium 4.3 mmol/L (3.5-5.1); Total Bilirubin 0.7 mg/dL (0.2-1.3); Total Protein 5.5 g/dL (6.3-8.2)
[2017-03-19 06:02] LABS: Add Differential Manual Differential
[2017-03-19 06:06] LABS: Manual Review Performed; Myelocytes % 1 %; Nucleated Red Blood Cells 2 /100 WBC (0-0); Target Cells Present; Total Cells Counted 200; WBC 10.5 k/uL (3.8-10.6)
[2017-03-19 06:07] LABS: Polychromasia Present; Tear Drop Cells Present
[2017-03-19] MEDS: PANTOPRAZOLE 40 MG/10 ML VIAL IVP SCH (08:06)
[2017-03-19] MEDS: LISINOPRIL 10 MG TAB PO SCH ×2 (08:06→21:53)
[2017-03-19] MEDS: CLOPIDOGREL 75 MG TAB PO SCH (08:06)
[2017-03-19] MEDS: METOPROLOL TARTRATE 25 MG TAB PO SCH ×2 (08:06→21:54)
[2017-03-19] MEDS: NYSTATIN 100,000 UNIT/ML SUSP 500,000 UNIT/5 ML CUP PO SCH ×4 (08:06→21:54)
[2017-03-19] MEDS: AMIODARONE 200 MG TAB PO SCH ×2 (08:06→21:53)
[2017-03-19] MEDS: ASPIRIN 325 MG TAB PO SCH (08:06)
[2017-03-19] MEDS: CALCIUM CARB-VIT D 500MG-200UN 1 EACH TAB PO SCH (08:07)
--- NOTE | 2017-03-19 08:07 | P.PN ---
Addendum entered and electronically signed by Simran Roberts NP-C 03/19/17 09:22 : Addendum: NGT removed. Dobhoff placed without incident. XR confirmed confirmation. Pt brigette well. Original Note: <Simran Roberts - Last Filed: 03/19/17 07:58> Subjective Principal diagnosis: Bicuspid aortic valve with critical aortic stenosis, aortic insufficiency. CAD. Diabetes mellitus. Hypertension. History of TIAs, neuropathy, pericarditis, scoliosis, brain concussion. History of paroxysmal atrial fibrillation POD #15 elective aortic valve replacement with #25 mm magna ease bioprosthetic aortic valve, a clip ligation into left atrial appendage with a #35 mm AtriClip and intraoperative transesophageal echocardiogram. Postoperative acute blood loss anemia, a potential expected outcome of surgery. POD #15 reexploration of the chest, evacuation of clot, control of bleed. Postoperative hypoxic respiratory failure requiring prolonged mechanical ventilation, a potential expected outcome of surgery. POD #13 placement of right pleural chest tube for pleural effusion Postoperative hypovolemic shock, inherent to the surgery Postoperative paroxysmal atrial fibrillation, and expected outcome of surgery POD #7 dual-chamber pacemaker insertion, transvenous under fluoroscopic vision for sick sinus syndrome versus asystole, inherent to aortic valve surgery. POD #7 placement of left pleural chest tube for left pneumothorax as a result of pacemaker placement, inherent to the surgery. Sputum culture positive for Klebsiella, antibiotics per pulmonology. Patient is currently sitting up in bed in no acute distress. Awake and alert and following commands. Swallow eval done yesterday by speech therapy, patient unable to swallow appropriately. Objective - Vital Signs Vital signs: Vital Signs Temp 98.2 F 03/19/17 04:00 Pulse 90 03/19/17 07:00 Resp 28 H 03/19/17 07:00 BP 152/61 03/19/17 07:00 Pulse Ox 92 L 03/19/17 07:00 Intake & Output 03/18/17 03/19/17 03/19/17 18:59 06:59 18:59 Intake Total 214.450 7363 Output Total 1385 770 Balance -669.143 376 Weight 88.2 kg 87.9 kg Intake: IV 220 296 Sodium Chloride 0.9% 1, 220 260 000 ml @ 20 mls/hr IV . Q24H [facility] Rx#:[id number] pressure bag 36 Intake, IV Titration 65.857 Amount Insulin Regular 100 unit 15.857 In Sodium Chloride 0.9% 100 ml @ Per Protocol IV .Q0M [facility] Rx#:[id number] cefTRIAXone 1,000 mg In 50 Sodium Chloride 0.9% 50 ml @ 100 mls/hr IVPB Q24HR [facility] Rx#:[id number] Oral 180 Tube Feeding 250 850 Output: Urine 1385 770 Other: Voiding Method Indwelling Catheter Indwelling Catheter # Voids 35 ABP, PAP, CO, CI - Last Documented Arterial Blood Pressure 130/48 Pulmonary Artery Pressure 43/32 Cardiac Output 3.9 Cardiac Index 2.3 - Constitutional General appearance: Present: cooperative, no acute distress - Respiratory Details: Lungs sounds diminished bilaterally. Respirations even, nonlabored. Currently on 4 L nasal cannula oxygen saturation 94%. - Cardiovascular Details: S1, S2 present. Ventricular paced with underlying atrial fibrillation. Sternum stable. Generalized edema present. Palpable pulses present bilaterally. Heart hugger in place, teds/SCDs present. - Gastrointestinal Gastrointestinal Comment(s): Abdomen soft, nontender, nondistended. NG tube present, tolerating Glucerna tube feedings at 50 mL per hour with no residual. - Genitourinary Genitourinary Comment(s): Cuellar present draining clear, yellow urine. Output 55-60 mL/h overnight. Cuellar was exchanged yesterday. - Integumentary Integumentary Comment(s): Anterior chest incision well approximated with Dermabond dressing. - Neurologic Neurologic Comment(s): Patient alert and awake. Following all commands. Able to move right side extremities, left lower extremity. Left upper extremity withdraws to painful stimuli - Musculoskeletal Musculoskeletal: Present: generalized weakness - Psychiatric Psychiatric Comment(s): Patient states her name, birthdate, knows that she is in the hospital and that she had surgery, knows that it is March 2017. Psychiatric: Present: A&O x's 3 - Allied health notes Allied health notes reviewed: nursing - Labs CBC & Chem 7: 03/19/17 05:20 03/19/17 05:20 Labs: Abnormal Lab Results - Last 24 Hours (Table) 03/18/17 03/18/17 03/18/17 Range/Units 10:30 12:54 17:57 RBC (3.80-5.40) m/uL Hgb (11.4-16.0) gm/dL Hct (34.0-46.0) % MCH (25.0-35.0) pg MCHC (31.0-37.0) g/dL RDW (11.5-15.5) % Monocytes # (Manual) (0-1.0) k/uL Myelocytes # (Manual) (0) k/uL Nucleated RBCs (0-0) /100 WBC Sodium (137-145) mmol/L Chloride (98-107) mmol/L BUN (7-17) mg/dL Creatinine (0.52-1.04) mg/dL Glucose (74-99) mg/dL POC Glucose (mg/dL) 102 H 121 H 168 H (75-99) mg/dL Phosphorus (2.5-4.5) mg/dL Magnesium (1.6-2.3) mg/dL AST (14-36) U/L ALT (9-52) U/L Alkaline Phosphatase (38-126) U/L Total Protein (6.3-8.2) g/dL Albumin (3.5-5.0) g/dL 03/19/17 03/19/17 03/19/17 Range/Units 01:05 05:20 05:20 RBC 3.64 L (3.80-5.40) m/uL Hgb 8.8 L (11.4-16.0) gm/dL Hct 29.2 L (34.0-46.0) % MCH 24.1 L (25.0-35.0) pg MCHC 30.0 L (31.0-37.0) g/dL RDW 24.1 H (11.5-15.5) % Monocytes # (Manual) 1.47 H (0-1.0) k/uL Myelocytes # (Manual) 0.11 H (0) k/uL Nucleated RBCs 2 H (0-0) /100 WBC Sodium 148 H (137-145) mmol/L Chloride 114 H (98-107) mmol/L BUN 63 H (7-17) mg/dL Creatinine 1.20 H (0.52-1.04) mg/dL Glucose 218 H (74-99) mg/dL POC Glucose (mg/dL) 196 H (75-99) mg/dL Phosphorus 4.7 H (2.5-4.5) mg/dL Magnesium 2.8 H (1.6-2.3) mg/dL AST 42 H (14-36) U/L ALT 66 H (9-52) U/L Alkaline Phosphatase 244 H (38-126) U/L Total Protein 5.5 L (6.3-8.2) g/dL Albumin 2.7 L (3.5-5.0) g/dL - Imaging and Cardiology Chest x-ray: image reviewed Assessment and Plan (1) History of TIA (transient ischemic attack) Status: Acute (2) Hyperlipidemia Status: Acute (3) Osteoarthritis Status: Acute (4) Acute blood loss as cause of postoperative anemia Status: Acute (5) Paroxysmal atrial fibrillation Status: Acute (6) Status post aortic valve replacement Status: Acute (7) Bicuspid aortic valve Status: Acute (8) Diabetes mellitus, insulin dependent (IDDM), controlled Status: Acute (9) Hypertension Status: Acute (10) Severe aortic stenosis Status: Acute Plan: 1. Continue aspirin, Plavix, beta daysi, JENNIFER inhibitor. Statin on hold secondary to elevated liver enzymes, will restart when able. Will maximize beta daysi therapy as able. Continue amiodarone for A. fib prophylaxis. 2. Wean O2 as tolerated. Encourage incentive spirometry use. Sputum culture positive for Klebsiella, continue ceftriaxone per pulmonary services. 3. Speech therapy to continue to evaluate swallowing for initiation of diet. Tube feeding to continue for nutritional support. Will discontinue NG tube and place Dobbhoff. 4. Increase activity as tolerated. Physical therapy to follow. 5. Continue Cuellar for strict accurate intake and output. Cuellar exchanged yesterday. 6. Monitor daily labs, chest x-rays. 7. GI/DVT prophylaxis. 8. Insulin management per primary service. Recommend basal insulin for better blood sugar control. 9. More recommendations as patient progresses. Time with Patient: Greater than 30 <Curly Boone - Last Filed: 03/19/17 11:35> Objective - Vital Signs Vital signs: Vital Signs Temp 98.0 F 03/19/17 08:00 Pulse 113 H 03/19/17 08:00 Resp 20 03/19/17 08:00 BP 146/60 03/19/17 08:00 Pulse Ox 93 L 03/19/17 08:00 Intake & Output 03/18/17 03/19/17 03/19/17 18:59 06:59 18:59 Intake Total 663.385 1575 420 Output Total 1385 770 210 Balance -669.143 376 210 Weight 88.2 kg 87.9 kg 87.9 kg Intake: IV 220 296 40 Sodium Chloride 0.9% 1, 220 260 40 000 ml @ 20 mls/hr IV . Q24H [facility] Rx#:[id number] pressure bag 36 Intake, IV Titration 65.857 50 Amount Insulin Regular 100 unit 15.857 In Sodium Chloride 0.9% 100 ml @ Per Protocol IV .Q0M [facility] Rx#:[id number] cefTRIAXone 1,000 mg In 50 50 Sodium Chloride 0.9% 50 ml @ 100 mls/hr IVPB Q24HR [facility] Rx#:[id number] Oral 180 Tube Feeding 250 850 150 Other 180 Output: Urine 1385 770 210 Other: Voiding Method Indwelling Catheter Indwelling Catheter Indwelling Catheter # Voids 35 35 ABP, PAP, CO, CI - Last Documented Arterial Blood Pressure 130/48 Pulmonary Artery Pressure 43/32 Cardiac Output 3.9 Cardiac Index 2.3 - Labs CBC & Chem 7: 03/19/17 05:20 03/19/17 05:20 Labs: Abnormal Lab Results - Last 24 Hours (Table) 03/18/17 03/18/17 03/19/17 Range/Units 12:54 17:57 01:05 RBC (3.80-5.40) m/uL Hgb (11.4-16.0) gm/dL Hct (34.0-46.0) % MCH (25.0-35.0) pg MCHC (31.0-37.0) g/dL RDW (11.5-15.5) % Monocytes # (Manual) (0-1.0) k/uL Myelocytes # (Manual) (0) k/uL Nucleated RBCs (0-0) /100 WBC Sodium (137-145) mmol/L Chloride (98-107) mmol/L BUN (7-17) mg/dL Creatinine (0.52-1.04) mg/dL Glucose (74-99) mg/dL POC Glucose (mg/dL) 121 H 168 H 196 H (75-99) mg/dL Phosphorus (2.5-4.5) mg/dL Magnesium (1.6-2.3) mg/dL AST (14-36) U/L ALT (9-52) U/L Alkaline Phosphatase (38-126) U/L Total Protein (6.3-8.2) g/dL Albumin (3.5-5.0) g/dL 03/19/17 03/19/17 Range/Units 05:20 05:20 RBC 3.64 L (3.80-5.40) m/uL Hgb 8.8 L (11.4-16.0) gm/dL Hct 29.2 L (34.0-46.0) % MCH 24.1 L (25.0-35.0) pg MCHC 30.0 L (31.0-37.0) g/dL RDW 24.1 H (11.5-15.5) % Monocytes # (Manual) 1.47 H (0-1.0) k/uL Myelocytes # (Manual) 0.11 H (0) k/uL Nucleated RBCs 2 H (0-0) /100 WBC Sodium 148 H (137-145) mmol/L Chloride 114 H (98-107) mmol/L BUN 63 H (7-17) mg/dL Creatinine 1.20 H (0.52-1.04) mg/dL Glucose 218 H (74-99) mg/dL POC Glucose (mg/dL) (75-99) mg/dL Phosphorus 4.7 H (2.5-4.5) mg/dL Magnesium 2.8 H (1.6-2.3) mg/dL AST 42 H (14-36) U/L ALT 66 H (9-52) U/L Alkaline Phosphatase 244 H (38-126) U/L Total Protein 5.5 L (6.3-8.2) g/dL Albumin 2.7 L (3.5-5.0) g/dL Assessment and Plan Plan: The patient was seen and examined. I agree with the above assessment and plan. She is currently on nasal cannula and breathing easily. Overall she is quite debilitated and weak. She does answer questions and move all extremities. She did fail her swallow study. She is currently getting tube feeds via Dobbhoff tube. We will continue with physical therapy. She is on antibiotics for a positive sputum culture. We will continue with ICU observation for now.
--- NOTE | 2017-03-19 09:01 | XR ---
EXAMINATION TYPE: XR chest 1V portable DATE OF EXAM: 03/19/2017 COMPARISON: 1717 HISTORY: Status post cardiac surgery. Shortness of breath. TECHNIQUE: Single frontal view of the chest is obtained. FINDINGS: Low lung volumes are again seen. Enteric tube, left-sided PICC, and postsurgical changes o f the chest are stable. Unchanged cardiomegaly. Small left and trace right pleural effusions are seen as well as mild pulmonary vascular congestion, slightly improved from the prior. IMPRESSION: 1. Minimal improvement in the pulmonary vascular congestion. 2. Stable small left and trace right pleural effusions.
--- NOTE | 2017-03-19 09:31 | XR ---
EXAMINATION TYPE: XR abdomen 1V DATE OF EXAM: 03/19/2017 9:24 AM CLINICAL HISTORY: Exam for Dobbhoff placement TECHNIQUE: Single upright image of the abdomen is obtained. COMPARISON: None. FINDINGS: The Dobbhoff tube is located overlying the gastric body and could be advanced approximately 9 cm if placement within the proximal small bowel is desired. Scattered gas is seen in non-distended small bowel loops. Overall there is a paucity of bowel gas. There is no visceromegaly, pneumoperiton eum, or abnormal calcification appreciated. Postsurgical changes are appreciated of the visualized ch est with costophrenic angle blunting likely relating to trace pleural effusions. IMPRESSION: 1. Distal radiopaque tip of the Dobbhoff tube is located within the gastric body and could be advance d approximately 9 cm if placement within the proximal small bowel is desired. 2. Paucity of bowel gas within the abdomen may relate to abdominal ascites or may be physiologic. 3. Trace pleural effusions.
--- NOTE | 2017-03-19 10:59 | P.PN ---
Subjective Principal diagnosis: Status post aVR This is a pleasant 76-year-old female patient who sees Dr. STELLA Lazaro as an outpatient who was diagnosed recently with symptomatic severe aortic stenosis secondary to bicuspid aortic valve. The patient underwent aVR using a bioprosthetic aortic valve. The patient was extubated 2 days ago. She is awake and she is following commands. She still have left sided weakness. She underwent a computed tomography scan which did not show any acute abnormalities. Hemodynamically she seems to be stable. We'll continue the current medical treatment. I suggested to the surgical team that we should start the patient on anticoagulation in view of the recent history of stroke as well as intermittent episodes of A. fib. Objective - Vital Signs Vital signs: Vital Signs Temp 98.0 F 03/19/17 08:00 Pulse 113 H 03/19/17 08:00 Resp 20 03/19/17 08:00 BP 146/60 03/19/17 08:00 Pulse Ox 93 L 03/19/17 08:00 Intake & Output 03/18/17 03/19/17 03/19/17 18:59 06:59 18:59 Intake Total 994.149 6481 420 Output Total 1385 770 210 Balance -669.143 376 210 Weight 88.2 kg 87.9 kg 87.9 kg Intake: IV 220 296 40 Sodium Chloride 0.9% 1, 220 260 40 000 ml @ 20 mls/hr IV . Q24H [facility] Rx#:[id number] pressure bag 36 Intake, IV Titration 65.857 50 Amount Insulin Regular 100 unit 15.857 In Sodium Chloride 0.9% 100 ml @ Per Protocol IV .Q0M [facility] Rx#:[id number] cefTRIAXone 1,000 mg In 50 50 Sodium Chloride 0.9% 50 ml @ 100 mls/hr IVPB Q24HR [facility] Rx#:[id number] Oral 180 Tube Feeding 250 850 150 Other 180 Output: Urine 1385 770 210 Other: Voiding Method Indwelling Catheter Indwelling Catheter Indwelling Catheter # Voids 35 35 ABP, PAP, CO, CI - Last Documented Arterial Blood Pressure 130/48 Pulmonary Artery Pressure 43/32 Cardiac Output 3.9 Cardiac Index 2.3 - Constitutional General appearance: Present: no acute distress - Respiratory Respiratory: bilateral: diminished - Cardiovascular Rhythm: regular - Labs CBC & Chem 7: 03/19/17 05:20 03/19/17 05:20 Labs: Abnormal Lab Results - Last 24 Hours (Table) 03/18/17 03/18/17 03/19/17 Range/Units 12:54 17:57 01:05 RBC (3.80-5.40) m/uL Hgb (11.4-16.0) gm/dL Hct (34.0-46.0) % MCH (25.0-35.0) pg MCHC (31.0-37.0) g/dL RDW (11.5-15.5) % Monocytes # (Manual) (0-1.0) k/uL Myelocytes # (Manual) (0) k/uL Nucleated RBCs (0-0) /100 WBC Sodium (137-145) mmol/L Chloride (98-107) mmol/L BUN (7-17) mg/dL Creatinine (0.52-1.04) mg/dL Glucose (74-99) mg/dL POC Glucose (mg/dL) 121 H 168 H 196 H (75-99) mg/dL Phosphorus (2.5-4.5) mg/dL Magnesium (1.6-2.3) mg/dL AST (14-36) U/L ALT (9-52) U/L Alkaline Phosphatase (38-126) U/L Total Protein (6.3-8.2) g/dL Albumin (3.5-5.0) g/dL 03/19/17 03/19/17 Range/Units 05:20 05:20 RBC 3.64 L (3.80-5.40) m/uL Hgb 8.8 L (11.4-16.0) gm/dL Hct 29.2 L (34.0-46.0) % MCH 24.1 L (25.0-35.0) pg MCHC 30.0 L (31.0-37.0) g/dL RDW 24.1 H (11.5-15.5) % Monocytes # (Manual) 1.47 H (0-1.0) k/uL Myelocytes # (Manual) 0.11 H (0) k/uL Nucleated RBCs 2 H (0-0) /100 WBC Sodium 148 H (137-145) mmol/L Chloride 114 H (98-107) mmol/L BUN 63 H (7-17) mg/dL Creatinine 1.20 H (0.52-1.04) mg/dL Glucose 218 H (74-99) mg/dL POC Glucose (mg/dL) (75-99) mg/dL Phosphorus 4.7 H (2.5-4.5) mg/dL Magnesium 2.8 H (1.6-2.3) mg/dL AST 42 H (14-36) U/L ALT 66 H (9-52) U/L Alkaline Phosphatase 244 H (38-126) U/L Total Protein 5.5 L (6.3-8.2) g/dL Albumin 2.7 L (3.5-5.0) g/dL Assessment and Plan Plan: Continue the current medical treatment which included dual antiplatelet therapy , metoprolol, lisinopril, digoxin and amiodarone. I suggested that the patient need to be started on anticoagulation.
--- NOTE | 2017-03-19 11:49 | P.PN ---
Subjective Principal diagnosis: Status post aortic valve replacement, postoperative day # 14 76-year-old male patient is postop day #4 following aortic valve replacement. Patient also is known to have previous CVA, bronchial asthma, hyperlipidemia, diabetes and hypertension. Surgery was done for bicuspid aortic valve and the patient is status post aortic valve replacement, bioprosthetic valve. Postop, the patient developed some mediastinal bleeding with hypotension. Based on that the patient was taken back to the operating room to control the bleed and during the process the patient was given a total of 4 units of packed RBC, 2 units of fresh frozen plasma one unit of platelets. The patient was kept intubated on mechanical ventilator. As mentioned today's postop day #4 On today's evaluation, the patient remains on a mechanical ventilator. The patient is an assist-control mode of ventilation with a rate of 24, tidal volume 350, FiO2 of 60% and a PEEP of 10. She is intubated with a #8 ET tube. Chest x-ray from today shows adequate expansion of both lungs. Chest tubes are in place. ET tube is in place. She has some mild cardiomegaly. No sinus complaints or pleural effusions. No pneumothorax seen. The blood gases from this morning showed a pH of 7.38 with a pCO2 of 36 and pO2 of 76. Hemodynamically the patient is stable. The patient is producing adequate amount of urine output. The patient is on no pressors. The patient is on no clevidipine drip. Blood pressure is on under good control. The chest tubes are still in place. The patient has a right pleural and left pleural chest tube and 2 mediastinal chest tubes. All of them are showing minimal amount of drainage and the patient would have the mediastinal and the right sided chest tube pulled today. Platelet count improved and it's up to 148. Hemoglobin stable at 8.1. She is sedated with Diprivan. She is calm and comfortable. On 03/09/2017 the patient is still being seen in follow-up. The patient has been quite stable overnight. The patient is on a mechanical ventilator and based on the most is a vent changes she is on a rate of 24, tidal volume 450, FiO2 has been down to 40% and I cut down the PEEP down to 8 and then down to 5 cm of water. The patient's chest x-ray showing cardiomegaly and there is a component of pulmonary vessel congestion. The patient was given 20 mg of IV Lasix this morning. She is producing adequate amount of urine output. The mediastinal and the right pleural chest tube has been removed. The patient has a left pleural chest tube only. No fever. No chills. Tolerating tube feeds. No other significant events overnight. Blood gases from this morning showed a pH of 7.48 with a pCO2 of 29 and a pO2 of 83. Hemoglobin stable at 8.5. On 03/10/2017 the patient is being seen in follow-up. She was taken off sedation this morning and she was very slow in recovering from sedation. Despite being off the sedation for few hours, the patient is still lethargic. She is arousable and she can follow simple commands. She is not fully alert however. She remains on same vent settings overnight which included an assist- control of 24, tidal volume 450, FiO2 of 40% and a PEEP of 5. Blood gases from this morning showed a component of respiratory alkalosis. Chest x-ray shows cardiomegaly with pulmonary vascular congestion and the patient was given 20 mg of IV Lasix earlier by cardiothoracic surgery. Mediastinal and right pleural chest tube has been removed. The patient has a left-sided chest tube in place. Sternum stable clean and intact. No major edema in lower extremities. After being taken off sedation, check weaning parameters and the patient was becoming quite restless even on assist control mode of ventilation. She was becoming tachypneic and her minute ventilation was high. She was able to generate more than 400 mL of tidal volume and a support of 5 and a PEEP of 5. At that point, I made a decision to extubate this patient to a BiPAP at a pressure of 12/5 cm of water and FiO2 of 60%. One hour following extubation, blood gases was done and showed a pH of 7.42 with a pCO2 of 37 and pO2 of 76. She is still lethargic and somewhat sleepy. She is arousable however. She did have some hypertensive reaction for which she was given 5 g of IV Lopressor. She is a bit anxious and she'll be given 1 mg of Ativan. Additional dose of 40 because of Lasix will be given. I am inclined not to reintubate this patient. I'm trying to stabilize her condition to avoid reintubation. Note that she has a restrictive lung disease pH is obese. Her FVC and FEV1 were in the 55% of age preoperatively. Her lung volumes are small on today's chest x-ray. On 03/11/2017 the patient is being seen in follow-up. After being extubated for few hours the patient had to be intubated. Immediately after the intubation she had frothy rest or secretions with orotracheal tube and she was suspected to be in acute pulmonary edema. Based on that the patient with diuresis with IV Lasix and since then her fluid balance has been negative. She has diuresed another 1 L since yesterday. She is sedated on Diprivan and she is calm and comfortable. She is on a mechanical ventilator on assist control mode at the rate of 2, tidal volume 400, FiO2 of 40% and a PEEP of 7. The vent changes were adjusted this morning after I reviewed the blood gases and a chest x-ray. The chest x-ray shows some cardiomegaly and mild four-vessel congestion and a blood gas showed a pH of 7.42 with a pCO2 of 38 and pO2 136. Earlier this morning the patient was also having A dose of hypotension. His systolic blood pressure was dropping in the mid 80s. She was placed on norepinephrine infusion and was running at around 4-5 mics to maintain a mean artery pressure above 65. Cardiac rhythm is atrial fibrillation. She was having episodes of bradycardia and tachycardia. I noted on several occasions that the patient's backup pacemaker was discharging. At the rate is stage became tachycardic. CT surgery was involved and the patient was given digoxin 0.5 mg. She is currently ventricular paced at the rate of 65. The underlying rhythm was asystole. Note that she had gotten her metoprolol earlier this morning. She is back on her tube feeds and currently she is on vital high protein at the rate of 40 mL an hour. In terms of fluid balance, she is on IV D5 water at the rate of 40. Producing somewhere between 75 mL an hour of urine output. Afebrile. The patient is seen again today 03/12/2017 in follow-up in the intensive care unit. She remains intubated and on the mechanical ventilator. Currently in an assist-control mode with a rate of 12, tidal volume 400, FiO2 40 and a PEEP of 5. Morning blood gases reveal a P O2 of 74, pCO2 of 34 and a pH of 7.44. Today 's chest x-ray revealed overall stable findings, there is chronic parenchymal changes and cardiomegaly with patchy left basilar atelectasis. No new infiltrates are seen. She remains on norepinephrine at 3 mcg/m to maintain mean arterial pressure of 65 and greater. She is sedated on propofol at 35 mcg/ kg/m. She is on insulin drip at 5.5 units per hour. Her Vital high-protein tube feeds are currently on hold as the patient has been noticed to be pacemaker dependent and the plan is for insertion of a permanent pacemaker today. On 03/13/2017 the patient is being seen in follow-up in the intensive care unit. She is was sedated and she is calm and comfortable. Noted the patient underwent a pacemaker insertion yesterday for postoperative asystole. The patient postop developed a 50% pneumothorax on the left. A chest tube was inserted in the intensive care unit without any complication today's chest x- ray shows full expansion of the left lung without evidence of any pneumothorax or air leak. Meanwhile, the patient is still on a mechanical ventilator assist control mode with tidal volume 400, FiO2 of 50% and a PEEP of 5. The blood gases showed a pH of 7.5 with a pCO2 of 31 and pO2 of 60. Chest x-ray is showing thyromegaly and pulmonary vessel congestion. Sodium level is at 142. Hemoglobin is at 7.3 which is a gram lower compared to yesterday. A sedation holiday will be done and we'll check again the weaning parameters., Judgment the patient is not ready to wean yet. Oxidation is still borderline and there is not a whole lot of room for potential extubation on today's evaluation. She is tolerating her tube feeds. She is on 50 mics of the prevent. No fever. No chills. Sternum stable clean and intact. On 03/14/2017 the patient is being seen in follow-up in the intensive care units. She is calm and comfortable. She was given a sedation holiday and she woke up very appropriately today. She is following commands. She is still intubated on a mechanical ventilator. She is an assist-control mode at the rate of 12, FiO2 of 50%, tidal volume 400 and a PEEP of 5. Chest x-ray showing cardiomegaly, there is a left-sided chest tube in place without evidence of pneumothorax, ET tube is in a good location there is some mild pulmonary vascular congestion. The patient is on no pressors. Overnight she went into each of fibrillation with rapid ventricular response. She was placed on amiodarone drip. Note that she has a pacemaker in place as the patient went into complete asystole post AVR. She is producing adequate amount of urine output. Renal function is stable. There is Klebsiella growing in her sputum and based on that the patient be started on IV antibiotics. She is afebrile for now. No leukocytosis. Hemoglobin today is at 8.3. On 03/15/2017, patient remains on mechanical ventilation, earlier trial of weaning and holding sedation failed, patient was noted to be extremely agitated tachypneic and tachycardic, hence she had to be placed back on propofol, and back on assist control mode of mechanical ventilation. Patient is arousable, follows simple instructions, but clearly her gases are marginal, and her weaning parameters are poor considering her extreme agitation once off sedation. Her ventilator settings were reviewed, she is presently on FiO2 of 45 %, tidal volume of 400, PEEP of 5. Her flow rate is about 60 L/m, and that gives us an inspiratory and expiratory ratio of 1:2. ABG showed a pO2 of 66 pCO2 of 28 pH of 7.50, hence I cut down her before meals rate to 16. Her FiO2 is now 45% instead of 40%. CBC showed the PEEP cigar of 11.8 hemoglobin of 7.9. BUN is 65 creatinine of 1.09. Gram stain of the sputum and culture showed Klebsiella oxytoca patient is on Rocephin. On 03/16/2017, patient remains on mechanical ventilation, I went ahead and stopped her propofol, patient seems to be appropriate, follows simple instructions, but she seems to be generally weak and frail. I would proceed later with pressure support and CPAP, and if she gets agitated may utilize a Precedex. Reviewed her labs, ABG showed a pO2 of 85 pCO2 of 53 3 pH of 7.42. Hemoglobin is 7.7, renal profile showed a BUN of 64 creatinine of 1.0. Chest x- ray showed mostly by basilar opacities and strongly suspicious for atelectasis. Doubt underlying pneumonia. On 03/17/2017, patient remains on mechanical ventilation, she is now on Precedex replacing propofol, seems to be appropriate, however she was noted to have some weakness on the left side, CT of the brain was done earlier today and it came back negative for acute process. Patient was kept on Precedex, she was placed on pressure support of 8 and CPAP for almost an hour and she seemed to do quite well. Hence after reviewing all her labs, x-ray, and CT of the brain, I extubated the patient to BiPAP. So far the process of weaning and extubation seems to be tolerated. ABG this morning showed a pO2 of 89 pCO2 of 34 pH of 7.42 and this was on assist control mode of mechanical ventilation, and FiO2 of 45%. Patient was reevaluated today on 03/18/2017, she seems to have tolerated the extubation well over the last 24 hours. However her overall clinical condition remains marginal, patient has some difficulty swallowing, and a nasogastric tube was placed, she is not quite ready to swallow on her own at this point. Swallow evaluation will be done, in the meantime we'll try to feed the patient via nasogastric tube. Patient seems to be generally weak, frail, she is doing very poorly when it comes incentive spirometry for deep coughing and deep breathing. Thyroid profile was ordered. Patient will definitely need a terminal makeup operator of rehab and long-term of occupational and physical therapy. Labs were reviewed CBC is relatively normal hemoglobin is 8.3 electrolytes are noted, BUN is 58 creatinine is 1.0. Patient seems to be quite edematous, hence one dose of Lasix will be given. Chest x-ray is showing mostly atelectasis at the bases. Reevaluated today on 03/19/2017, patient is slightly bit more awake compared to yesterday. Continues to tolerate the extubation quite well. A Dobbhoff tube was placed today for feeding. Her nasogastric tube was removed. Labs were reviewed, CBC was unremarkable, basic metabolic profile was noted sodium is 148 BUN is 63 creatinine is 1.20. Patient remained generally weak, however she is able to follow simple instructions, seems to be a bit weaker on the left side especially in the left lower exudative. CT of the brain was negative for acute stroke. Objective - Vital Signs Vital signs: Vital Signs Temp 98.0 F 03/19/17 08:00 Pulse 113 H 03/19/17 08:00 Resp 20 03/19/17 08:00 BP 146/60 03/19/17 08:00 Pulse Ox 93 L 03/19/17 08:00 Intake & Output 03/18/17 03/19/17 03/19/17 18:59 06:59 18:59 Intake Total 562.232 5405 420 Output Total 1385 770 210 Balance -669.143 376 210 Weight 88.2 kg 87.9 kg 87.9 kg Intake: IV 220 296 40 Sodium Chloride 0.9% 1, 220 260 40 000 ml @ 20 mls/hr IV . Q24H [facility] Rx#:[id number] pressure bag 36 Intake, IV Titration 65.857 50 Amount Insulin Regular 100 unit 15.857 In Sodium Chloride 0.9% 100 ml @ Per Protocol IV .Q0M [facility] Rx#:[id number] cefTRIAXone 1,000 mg In 50 50 Sodium Chloride 0.9% 50 ml @ 100 mls/hr IVPB Q24HR [facility] Rx#:[id number] Oral 180 Tube Feeding 250 850 150 Other 180 Output: Urine 1385 770 210 Other: Voiding Method Indwelling Catheter Indwelling Catheter Indwelling Catheter # Voids 35 35 ABP, PAP, CO, CI - Last Documented Arterial Blood Pressure 130/48 Pulmonary Artery Pressure 43/32 Cardiac Output 3.9 Cardiac Index 2.3 - Exam Physical Exam: Revealed a 76-year-old female on nasal cannula, looks frail weak and pale, presently on 4 L nasal cannula. With O2 saturation in the low 90s. HEENT:[Neck is supple.] [No neck masses.] [No thyromegaly.] [No JVD.]. Dobbhoff tube was noted... Chest: [Extremely diminished breath sounds at the bases, no crackles or rhonchi or wheezes..] Cardiac Exam: [Normal S1 and S2, no S3 gallop, no murmur.] Abdomen: [Soft, nontender, no megaly, no rebound, no guarding, normal bowel sounds.] Extremities: [No clubbing, 1+ bipedal edema, no cyanosis.] Neurological Exam: [No focal neurologic deficit.] However, the patient seems to be generally weak with mostly proximal weakness of her muscles. - Labs CBC & Chem 7: 03/19/17 05:20 03/19/17 05:20 Labs: Abnormal Lab Results - Last 24 Hours (Table) 03/18/17 03/18/17 03/19/17 Range/Units 12:54 17:57 01:05 RBC (3.80-5.40) m/uL Hgb (11.4-16.0) gm/dL Hct (34.0-46.0) % MCH (25.0-35.0) pg MCHC (31.0-37.0) g/dL RDW (11.5-15.5) % Monocytes # (Manual) (0-1.0) k/uL Myelocytes # (Manual) (0) k/uL Nucleated RBCs (0-0) /100 WBC Sodium (137-145) mmol/L Chloride (98-107) mmol/L BUN (7-17) mg/dL Creatinine (0.52-1.04) mg/dL Glucose (74-99) mg/dL POC Glucose (mg/dL) 121 H 168 H 196 H (75-99) mg/dL Phosphorus (2.5-4.5) mg/dL Magnesium (1.6-2.3) mg/dL AST (14-36) U/L ALT (9-52) U/L Alkaline Phosphatase (38-126) U/L Total Protein (6.3-8.2) g/dL Albumin (3.5-5.0) g/dL 03/19/17 03/19/17 Range/Units 05:20 05:20 RBC 3.64 L (3.80-5.40) m/uL Hgb 8.8 L (11.4-16.0) gm/dL Hct 29.2 L (34.0-46.0) % MCH 24.1 L (25.0-35.0) pg MCHC 30.0 L (31.0-37.0) g/dL RDW 24.1 H (11.5-15.5) % Monocytes # (Manual) 1.47 H (0-1.0) k/uL Myelocytes # (Manual) 0.11 H (0) k/uL Nucleated RBCs 2 H (0-0) /100 WBC Sodium 148 H (137-145) mmol/L Chloride 114 H (98-107) mmol/L BUN 63 H (7-17) mg/dL Creatinine 1.20 H (0.52-1.04) mg/dL Glucose 218 H (74-99) mg/dL POC Glucose (mg/dL) (75-99) mg/dL Phosphorus 4.7 H (2.5-4.5) mg/dL Magnesium 2.8 H (1.6-2.3) mg/dL AST 42 H (14-36) U/L ALT 66 H (9-52) U/L Alkaline Phosphatase 244 H (38-126) U/L Total Protein 5.5 L (6.3-8.2) g/dL Albumin 2.7 L (3.5-5.0) g/dL Assessment and Plan Plan: 1 aortic valve replacement for severe bicuspid aortic valve stenosis, patient is postop day # 14 2 postoperative mediastinal bleeding, recovered 3 postoperative cardiac arrhythmia, asystole, status post insertion of a pacemaker. 4 acute hypoxic respiratory failure, expected outcome of surgery. The patient was successfully extubated on 03/17/2017. 5 iatrogenic left-sided pneumothorax status post chest tube insertion with successful expansion of the left lung without evidence of any air leak. 6 hypertension, history of 7 CVA/TIA, history of 8 bronchial asthma, history of 9 obesity 10 restrictive lung physiology on preop spirometry with an FEV1 of 56% of predicted. 11 thrombocytopenia, recovered 12 postoperative anemia, expected, hemoglobin is at 8.8 Recommendation: Continue present supportive care measures, incentive spirometry , physical therapy, address nutrition via Dobbhoff tube, failed swallow evaluation patient is still quite marginal considering her profound weakness. Continue O2 via nasal cannula, may use BiPAP if needed. No plans to transfer the patient out of the ICU at this point yet. Prognosis remains guarded. Time with Patient: Less than 30
[2017-03-19 12:08] LABS: Glucose,Whole Blood 131 mg/dL (75-99)
[2017-03-19] MEDS: CYANOCOBALAMIN 500 MCG TAB PO SCH (13:18)
[2017-03-19 17:52] LABS: Glucose,Whole Blood 120 mg/dL (75-99)
[2017-03-19] MEDS: SODIUM CHLORIDE 0.9% 1,000 ML IV SCH (19:14)
[2017-03-19] MEDS: INSULIN GLARGINE 100 UNIT/ML 10 ML VIAL SQ SCH (22:04)
[2017-03-20] MEDS: HYDROcodone/APAP 5-325MG 1 EACH TAB PO PRN (00:10)
[2017-03-20] MEDS: OFLOXACIN 0.3% OPHTH DROPS 5 ML BOTTLE RIGHT EYE SCH ×4 (00:11→18:40)
[2017-03-20] MEDS: INSULIN LISPRO (humaLOG) 300 UNIT/3 ML VIAL SQ SCH ×4 (00:17→18:39)
[2017-03-20 00:19] LABS: Glucose,Whole Blood 216 mg/dL (75-99)
[2017-03-20] MEDS: prednisoLONE ACETATE 1% OPHTH DROPS 1 ML BTL RIGHT EYE SCH ×4 (00:30→18:40)
[2017-03-20] MEDS: HEPARIN SODIUM,PORCINE 5,000 UNIT/ML 1 ML VIAL SQ SCH ×3 (04:41→20:38)
[2017-03-20 05:08] LABS: Glucose,Whole Blood 198 mg/dL (75-99)
[2017-03-20 05:19] LABS: Ionized Calcium 5.4 mg/dL (4.5-5.3)
[2017-03-20 05:21] LABS: Anisocytosis Moderate; CH 24.2; CHCM 30.3; HCT 28.5 % (34.0-46.0); HDW 3.99; HGB 8.2 gm/dL (11.4-16.0); Hypochromasia Marked; MCH 23.2 pg (25.0-35.0); MCHC 28.7 g/dL (31.0-37.0); MCV 80.7 fL (80.0-100.0); Mean Platelet Volume 8.9; Microcytosis Moderate; Poikilocytosis Slight; RBC 3.53 m/uL (3.80-5.40); RDW 23.6 % (11.5-15.5); WBC (Perox) 9.28
[2017-03-20 05:33] LABS: ALT 52 U/L (9-52); AST 30 U/L (14-36); Alkaline Phosphatase 209 U/L (38-126); Anion Gap 8 mmol/L; Blood Urea Nitrogen 58 mg/dL (7-17); Calcium 8.8 mg/dL (8.4-10.2); Carbon Dioxide 24 mmol/L (22-30); Chloride 118 mmol/L (98-107); Glucose 200 mg/dL (74-99); Magnesium 2.6 mg/dL (1.6-2.3); Non-African American GFR(MDRD) 54 (>60 ml/min/1.73 sqM); Phosphorous 4.7 mg/dL (2.5-4.5); Potassium 4.2 mmol/L (3.5-5.1); Sodium 150 mmol/L (137-145); Total Bilirubin 0.6 mg/dL (0.2-1.3); Total Protein 5.2 g/dL (6.3-8.2)
[2017-03-20 05:42] LABS: Add Differential Manual Differential
[2017-03-20 05:46] LABS: Band Neutrophils % 1 %; Metamyelocytes % 1 %; Nucleated Red Blood Cells 5 /100 WBC (0-0); Total Cells Counted 200
[2017-03-20 05:47] LABS: Manual Review Performed
[2017-03-20 05:48] LABS: Target Cells Present
--- NOTE | 2017-03-20 07:21 | XR ---
EXAMINATION TYPE: XR chest 1V portable DATE OF EXAM: 03/20/2017 COMPARISON: Yesterday HISTORY: Postop cardiac surgery TECHNIQUE: Single frontal view of the chest is obtained. FINDINGS: Heart is enlarged. Thoracic aorta is atheromatous. There is left axillary pacemaker with t he lead tips in the right ventricle. There are sternal wires. There is slight blunting of costophreni c angles. IMPRESSION: Congestive heart failure with small pleural effusions. Congestion is probably worse than last exam.
[2017-03-20] MEDS: PANTOPRAZOLE 40 MG/10 ML VIAL IVP SCH (07:54)
[2017-03-20] MEDS: AMIODARONE 200 MG TAB PO SCH ×2 (07:55→20:38)
[2017-03-20] MEDS: METOPROLOL TARTRATE 25 MG TAB PO SCH ×3 (07:55→21:37)
[2017-03-20] MEDS: LISINOPRIL 10 MG TAB PO SCH ×2 (07:55→20:39)
[2017-03-20] MEDS: CLOPIDOGREL 75 MG TAB PO SCH (07:56)
[2017-03-20] MEDS: CALCIUM CARB-VIT D 500MG-200UN 1 EACH TAB PO SCH (07:56)
[2017-03-20] MEDS: ASPIRIN 325 MG TAB PO SCH (07:56)
[2017-03-20] MEDS: NYSTATIN 100,000 UNIT/ML SUSP 500,000 UNIT/5 ML CUP PO SCH ×4 (07:57→21:37)
--- NOTE | 2017-03-20 08:53 | P.PN ---
<Simran Roberts - Last Filed: 03/20/17 08:45> Subjective Principal diagnosis: Bicuspid aortic valve with critical aortic stenosis, aortic insufficiency. CAD. Diabetes mellitus. Hypertension. History of TIAs, neuropathy, pericarditis, scoliosis, brain concussion. History of paroxysmal atrial fibrillation POD #16 elective aortic valve replacement with #25 mm magna ease bioprosthetic aortic valve, a clip ligation into left atrial appendage with a #35 mm AtriClip and intraoperative transesophageal echocardiogram. Postoperative acute blood loss anemia, a potential expected outcome of surgery. POD #16 reexploration of the chest, evacuation of clot, control of bleed. Postoperative hypoxic respiratory failure requiring prolonged mechanical ventilation, a potential expected outcome of surgery. POD #14 placement of right pleural chest tube for pleural effusion Postoperative hypovolemic shock, inherent to the surgery Postoperative paroxysmal atrial fibrillation, and expected outcome of surgery POD #8 dual-chamber pacemaker insertion, transvenous under fluoroscopic vision for sick sinus syndrome versus asystole, inherent to aortic valve surgery. POD #8 placement of left pleural chest tube for left pneumothorax as a result of pacemaker placement, inherent to the surgery. Sputum culture positive for Klebsiella, antibiotics per pulmonology. Patient is currently sitting up in bed in no acute distress. Awake and alert and following commands. Small progress being made daily with mentation and strength. Objective - Vital Signs Vital signs: Vital Signs Temp 97.5 F L 03/20/17 08:00 Pulse 69 03/20/17 08:00 Resp 22 03/20/17 08:00 BP 140/51 03/20/17 08:00 Pulse Ox 96 03/20/17 08:00 Intake & Output 03/19/17 03/20/17 03/20/17 18:59 06:59 18:59 Intake Total 1240 690 140 Output Total 810 620 80 Balance 430 70 60 Weight 87.9 kg 89.8 kg Intake: IV 220 240 110 Sodium Chloride 0.9% 1, 220 240 10 000 ml @ 20 mls/hr IV . Q24H [facility] Rx#:[id number] cefTRIAXone 1,000 mg In 100 Sodium Chloride 0.9% 50 ml @ 100 mls/hr IVPB Q24HR [facility] Rx#:[id number] Intake, IV Titration 50 Amount cefTRIAXone 1,000 mg In 50 Sodium Chloride 0.9% 50 ml @ 100 mls/hr IVPB Q24HR [facility] Rx#:[id number] Oral 180 Tube Feeding 610 360 30 Other 180 90 Output: Urine 810 620 80 Other: Voiding Method Indwelling Catheter Indwelling Catheter # Voids 35 ABP, PAP, CO, CI - Last Documented Arterial Blood Pressure 130/48 Pulmonary Artery Pressure 43/32 Cardiac Output 3.9 Cardiac Index 2.3 - Constitutional General appearance: Present: cooperative, no acute distress - Respiratory Details: Lungs sounds diminished bilaterally with coarse breath sounds in the bases. Respirations even, nonlabored. Currently on 6 L nasal cannula with oxygen saturation 95%. - Cardiovascular Details: Currently AV paced on telemetry. Sternum stable. Heart hugger in place. Teds/ SCDs present. Palpable pulses bilaterally. Generalized edema still present. Right radial arterial line, left brachial PICC line present. - Gastrointestinal Gastrointestinal Comment(s): Abdomen soft, nontender, nondistended. Active bowel sounds 4 quadrants. Tolerating Nepro tube feeding at 30 mL/h which is goal through [facility] - Genitourinary Genitourinary Comment(s): Cuellar present draining clear, yellow urine. Output 35-60 mL per hour. - Integumentary Integumentary Comment(s): Anterior chest incision well approximated with Dermabond dressing. Former left pleural chest tube site continues to drain serous drainage. - Musculoskeletal Musculoskeletal: Present: generalized weakness - Psychiatric Psychiatric: Present: A&O x's 3, appropriate affect, intact judgment & insight - Allied health notes Allied health notes reviewed: nursing - Labs CBC & Chem 7: 03/20/17 05:05 03/20/17 05:05 Labs: Abnormal Lab Results - Last 24 Hours (Table) 03/19/17 03/19/17 03/20/17 Range/Units 12:04 17:49 00:16 RBC (3.80-5.40) m/uL Hgb (11.4-16.0) gm/dL Hct (34.0-46.0) % MCH (25.0-35.0) pg MCHC (31.0-37.0) g/dL RDW (11.5-15.5) % Lymphocytes # (Manual) (1.0-4.8) k/uL Metamyelocytes # (Man) (0) k/uL Nucleated RBCs (0-0) /100 WBC Sodium (137-145) mmol/L Chloride (98-107) mmol/L BUN (7-17) mg/dL Glucose (74-99) mg/dL POC Glucose (mg/dL) 131 H 120 H 216 H (75-99) mg/dL Ionized Calcium Luz Elena (4.5-5.3) mg/dL Phosphorus (2.5-4.5) mg/dL Magnesium (1.6-2.3) mg/dL Alkaline Phosphatase (38-126) U/L Total Protein (6.3-8.2) g/dL Albumin (3.5-5.0) g/dL 03/20/17 03/20/17 03/20/17 Range/Units 05:00 05:05 05:05 RBC 3.53 L (3.80-5.40) m/uL Hgb 8.2 L (11.4-16.0) gm/dL Hct 28.5 L (34.0-46.0) % MCH 23.2 L (25.0-35.0) pg MCHC 28.7 L (31.0-37.0) g/dL RDW 23.6 H (11.5-15.5) % Lymphocytes # (Manual) 0.81 L (1.0-4.8) k/uL Metamyelocytes # (Man) 0.09 H (0) k/uL Nucleated RBCs 5 H (0-0) /100 WBC Sodium 150 H (137-145) mmol/L Chloride 118 H (98-107) mmol/L BUN 58 H (7-17) mg/dL Glucose 200 H (74-99) mg/dL POC Glucose (mg/dL) 198 H (75-99) mg/dL Ionized Calcium Luz Elena 5.4 H (4.5-5.3) mg/dL Phosphorus 4.7 H (2.5-4.5) mg/dL Magnesium 2.6 H (1.6-2.3) mg/dL Alkaline Phosphatase 209 H (38-126) U/L Total Protein 5.2 L (6.3-8.2) g/dL Albumin 2.5 L (3.5-5.0) g/dL - Imaging and Cardiology Chest x-ray: report reviewed, image reviewed Assessment and Plan (1) History of TIA (transient ischemic attack) Status: Acute (2) Hyperlipidemia Status: Acute (3) Osteoarthritis Status: Acute (4) Acute blood loss as cause of postoperative anemia Status: Acute (5) Paroxysmal atrial fibrillation Status: Acute (6) Status post aortic valve replacement Status: Acute (7) Bicuspid aortic valve Status: Acute (8) Diabetes mellitus, insulin dependent (IDDM), controlled Status: Acute (9) Hypertension Status: Acute (10) Severe aortic stenosis Status: Acute Plan: 1. Continue aspirin, Plavix, beta daysi, JENNIFER inhibitor. Statin restarted. Will maximize beta daysi therapy as able. Continue amiodarone for A. fib prophylaxis. 2. Wean O2 as tolerated. Encourage incentive spirometry use. Sputum culture positive for Klebsiella, continue ceftriaxone per pulmonary services. 3. Speech therapy to continue to evaluate swallowing for initiation of diet. Tube feeding to continue for nutritional support. 4. Increase activity as tolerated. Physical and occupational therapy to follow. 5. Continue Cuellar for strict accurate intake and output. 6. Monitor daily labs, chest x-rays. 7. GI/DVT prophylaxis. 8. Insulin management per primary service. Basal insulin added yesterday for better blood sugar control. 9. More recommendations as patient progresses. Referrals sent by perinatal social worker for subacute rehab, discharge planning in progress. Time with Patient: Greater than 30 <Curly Boone - Last Filed: 03/20/17 11:51> Objective - Vital Signs Vital signs: Vital Signs Temp 97.5 F L 03/20/17 08:00 Pulse 69 03/20/17 10:00 Resp 20 03/20/17 10:00 BP 148/73 03/20/17 10:00 Pulse Ox 93 L 03/20/17 10:00 Intake & Output 03/19/17 03/20/17 03/20/17 18:59 06:59 18:59 Intake Total 1240 690 250 Output Total 810 620 200 Balance 430 70 50 Weight 87.9 kg 89.8 kg Intake: IV 220 240 130 D5W 20 Sodium Chloride 0.9% 1, 220 240 10 000 ml @ 20 mls/hr IV . Q24H [facility] Rx#:[id number] cefTRIAXone 1,000 mg In 100 Sodium Chloride 0.9% 50 ml @ 100 mls/hr IVPB Q24HR [facility] Rx#:[id number] Intake, IV Titration 50 Amount cefTRIAXone 1,000 mg In 50 Sodium Chloride 0.9% 50 ml @ 100 mls/hr IVPB Q24HR [facility] Rx#:[id number] Oral 180 Tube Feeding 610 360 120 Other 180 90 Output: Urine 810 620 200 Other: Voiding Method Indwelling Catheter Indwelling Catheter Indwelling Catheter # Voids 35 ABP, PAP, CO, CI - Last Documented Arterial Blood Pressure 130/48 Pulmonary Artery Pressure 43/32 Cardiac Output 3.9 Cardiac Index 2.3 - Labs CBC & Chem 7: 03/20/17 05:05 03/20/17 05:05 Labs: Abnormal Lab Results - Last 24 Hours (Table) 03/19/17 03/19/17 03/20/17 Range/Units 12:04 17:49 00:16 RBC (3.80-5.40) m/uL Hgb (11.4-16.0) gm/dL Hct (34.0-46.0) % MCH (25.0-35.0) pg MCHC (31.0-37.0) g/dL RDW (11.5-15.5) % Lymphocytes # (Manual) (1.0-4.8) k/uL Metamyelocytes # (Man) (0) k/uL Nucleated RBCs (0-0) /100 WBC Sodium (137-145) mmol/L Chloride (98-107) mmol/L BUN (7-17) mg/dL Glucose (74-99) mg/dL POC Glucose (mg/dL) 131 H 120 H 216 H (75-99) mg/dL Ionized Calcium Luz Elena (4.5-5.3) mg/dL Phosphorus (2.5-4.5) mg/dL Magnesium (1.6-2.3) mg/dL Alkaline Phosphatase (38-126) U/L Total Protein (6.3-8.2) g/dL Albumin (3.5-5.0) g/dL 03/20/17 03/20/17 03/20/17 Range/Units 05:00 05:05 05:05 RBC 3.53 L (3.80-5.40) m/uL Hgb 8.2 L (11.4-16.0) gm/dL Hct 28.5 L (34.0-46.0) % MCH 23.2 L (25.0-35.0) pg MCHC 28.7 L (31.0-37.0) g/dL RDW 23.6 H (11.5-15.5) % Lymphocytes # (Manual) 0.81 L (1.0-4.8) k/uL Metamyelocytes # (Man) 0.09 H (0) k/uL Nucleated RBCs 5 H (0-0) /100 WBC Sodium 150 H (137-145) mmol/L Chloride 118 H (98-107) mmol/L BUN 58 H (7-17) mg/dL Glucose 200 H (74-99) mg/dL POC Glucose (mg/dL) 198 H (75-99) mg/dL Ionized Calcium Luz Elena 5.4 H (4.5-5.3) mg/dL Phosphorus 4.7 H (2.5-4.5) mg/dL Magnesium 2.6 H (1.6-2.3) mg/dL Alkaline Phosphatase 209 H (38-126) U/L Total Protein 5.2 L (6.3-8.2) g/dL Albumin 2.5 L (3.5-5.0) g/dL Assessment and Plan Plan: The patient was seen and examined. I agree with the above assessment and plan. Overall she seems more awake today. She is still receiving tube feeds at goal. She did drink water today without difficulty. She will have a repeat formal swallow eval on Wednesday. She remains on antibiotics. We will get her up to a chair position. We will continue to wean her oxygen.
--- NOTE | 2017-03-20 08:56 | P.PN ---
Subjective Principal diagnosis: avr Elderly female who is now extubated following a tick valve replacement. And is hungry and is waiting for her breakfast Protracted postoperative / intubated course following aortic valve surgery for aortic stenosis with an underlying bicuspid aortic valve, bioprosthetic aortic valve replacement. On examination on examination her blood pressures 140/51 mmHg heart rate is in the 60s afebrile Heart sounds are soft no murmurs no gallops Breath sounds are reduced bilaterally but no crackles reduced breath sounds bibasilar Abdomen is soft nontender Impression Aortic valve replacement Plan Continue current postoperative management Objective - Vital Signs Vital signs: Vital Signs Temp 97.5 F L 03/20/17 08:00 Pulse 69 03/20/17 08:00 Resp 22 03/20/17 08:00 BP 140/51 03/20/17 08:00 Pulse Ox 96 03/20/17 08:00 Intake & Output 03/19/17 03/20/17 03/20/17 18:59 06:59 18:59 Intake Total 1240 690 140 Output Total 810 620 80 Balance 430 70 60 Weight 87.9 kg 89.8 kg Intake: IV 220 240 110 Sodium Chloride 0.9% 1, 220 240 10 000 ml @ 20 mls/hr IV . Q24H [facility] Rx#:[id number] cefTRIAXone 1,000 mg In 100 Sodium Chloride 0.9% 50 ml @ 100 mls/hr IVPB Q24HR [facility] Rx#:[id number] Intake, IV Titration 50 Amount cefTRIAXone 1,000 mg In 50 Sodium Chloride 0.9% 50 ml @ 100 mls/hr IVPB Q24HR [facility] Rx#:[id number] Oral 180 Tube Feeding 610 360 30 Other 180 90 Output: Urine 810 620 80 Other: Voiding Method Indwelling Catheter Indwelling Catheter # Voids 35 ABP, PAP, CO, CI - Last Documented Arterial Blood Pressure 130/48 Pulmonary Artery Pressure 43/32 Cardiac Output 3.9 Cardiac Index 2.3 - Labs CBC & Chem 7: 03/20/17 05:05 03/20/17 05:05 Labs: Abnormal Lab Results - Last 24 Hours (Table) 03/19/17 03/19/17 03/20/17 Range/Units 12:04 17:49 00:16 RBC (3.80-5.40) m/uL Hgb (11.4-16.0) gm/dL Hct (34.0-46.0) % MCH (25.0-35.0) pg MCHC (31.0-37.0) g/dL RDW (11.5-15.5) % Lymphocytes # (Manual) (1.0-4.8) k/uL Metamyelocytes # (Man) (0) k/uL Nucleated RBCs (0-0) /100 WBC Sodium (137-145) mmol/L Chloride (98-107) mmol/L BUN (7-17) mg/dL Glucose (74-99) mg/dL POC Glucose (mg/dL) 131 H 120 H 216 H (75-99) mg/dL Ionized Calcium Luz Elena (4.5-5.3) mg/dL Phosphorus (2.5-4.5) mg/dL Magnesium (1.6-2.3) mg/dL Alkaline Phosphatase (38-126) U/L Total Protein (6.3-8.2) g/dL Albumin (3.5-5.0) g/dL 03/20/17 03/20/17 03/20/17 Range/Units 05:00 05:05 05:05 RBC 3.53 L (3.80-5.40) m/uL Hgb 8.2 L (11.4-16.0) gm/dL Hct 28.5 L (34.0-46.0) % MCH 23.2 L (25.0-35.0) pg MCHC 28.7 L (31.0-37.0) g/dL RDW 23.6 H (11.5-15.5) % Lymphocytes # (Manual) 0.81 L (1.0-4.8) k/uL Metamyelocytes # (Man) 0.09 H (0) k/uL Nucleated RBCs 5 H (0-0) /100 WBC Sodium 150 H (137-145) mmol/L Chloride 118 H (98-107) mmol/L BUN 58 H (7-17) mg/dL Glucose 200 H (74-99) mg/dL POC Glucose (mg/dL) 198 H (75-99) mg/dL Ionized Calcium Luz Elena 5.4 H (4.5-5.3) mg/dL Phosphorus 4.7 H (2.5-4.5) mg/dL Magnesium 2.6 H (1.6-2.3) mg/dL Alkaline Phosphatase 209 H (38-126) U/L Total Protein 5.2 L (6.3-8.2) g/dL Albumin 2.5 L (3.5-5.0) g/dL
[2017-03-20 11:50] LABS: Glucose,Whole Blood 215 mg/dL (75-99)
--- NOTE | 2017-03-20 12:32 | P.PN ---
Subjective Principal diagnosis: Bicuspid aortic valve with critical aortic stenosis, aortic insufficiency. CAD. Diabetes mellitus. Hypertension. History of TIAs, neuropathy, pericarditis, scoliosis, brain concussion. History of paroxysmal atrial fibrillation POD #16 elective aortic valve replacement with #25 mm magna ease bioprosthetic aortic valve, a clip ligation into left atrial appendage with a #35 mm AtriClip and intraoperative transesophageal echocardiogram. Postoperative acute blood loss anemia, a potential expected outcome of surgery. POD #16 reexploration of the chest, evacuation of clot, control of bleed. Postoperative hypoxic respiratory failure requiring prolonged mechanical ventilation, a potential expected outcome of surgery. POD #14 placement of right pleural chest tube for pleural effusion Postoperative hypovolemic shock, inherent to the surgery Postoperative paroxysmal atrial fibrillation, and expected outcome of surgery POD #8 dual-chamber pacemaker insertion, transvenous under fluoroscopic vision for sick sinus syndrome versus asystole, inherent to aortic valve surgery. POD #8 placement of left pleural chest tube for left pneumothorax as a result of pacemaker placement, inherent to the surgery. 76-year-old male patient is postop day #4 following aortic valve replacement. Patient also is known to have previous CVA, bronchial asthma, hyperlipidemia, diabetes and hypertension. Surgery was done for bicuspid aortic valve and the patient is status post aortic valve replacement, bioprosthetic valve. Postop, the patient developed some mediastinal bleeding with hypotension. Based on that the patient was taken back to the operating room to control the bleed and during the process the patient was given a total of 4 units of packed RBC, 2 units of fresh frozen plasma one unit of platelets. The patient was kept intubated on mechanical ventilator. As mentioned today's postop day #4 On today's evaluation, the patient remains on a mechanical ventilator. The patient is an assist-control mode of ventilation with a rate of 24, tidal volume 350, FiO2 of 60% and a PEEP of 10. She is intubated with a #8 ET tube. Chest x-ray from today shows adequate expansion of both lungs. Chest tubes are in place. ET tube is in place. She has some mild cardiomegaly. No sinus complaints or pleural effusions. No pneumothorax seen. The blood gases from this morning showed a pH of 7.38 with a pCO2 of 36 and pO2 of 76. Hemodynamically the patient is stable. The patient is producing adequate amount of urine output. The patient is on no pressors. The patient is on no clevidipine drip. Blood pressure is on under good control. The chest tubes are still in place. The patient has a right pleural and left pleural chest tube and 2 mediastinal chest tubes. All of them are showing minimal amount of drainage and the patient would have the mediastinal and the right sided chest tube pulled today. Platelet count improved and it's up to 148. Hemoglobin stable at 8.1. She is sedated with Diprivan. She is calm and comfortable. On 03/09/2017 the patient is still being seen in follow-up. The patient has been quite stable overnight. The patient is on a mechanical ventilator and based on the most is a vent changes she is on a rate of 24, tidal volume 450, FiO2 has been down to 40% and I cut down the PEEP down to 8 and then down to 5 cm of water. The patient's chest x-ray showing cardiomegaly and there is a component of pulmonary vessel congestion. The patient was given 20 mg of IV Lasix this morning. She is producing adequate amount of urine output. The mediastinal and the right pleural chest tube has been removed. The patient has a left pleural chest tube only. No fever. No chills. Tolerating tube feeds. No other significant events overnight. Blood gases from this morning showed a pH of 7.48 with a pCO2 of 29 and a pO2 of 83. Hemoglobin stable at 8.5. On 03/10/2017 the patient is being seen in follow-up. She was taken off sedation this morning and she was very slow in recovering from sedation. Despite being off the sedation for few hours, the patient is still lethargic. She is arousable and she can follow simple commands. She is not fully alert however. She remains on same vent settings overnight which included an assist- control of 24, tidal volume 450, FiO2 of 40% and a PEEP of 5. Blood gases from this morning showed a component of respiratory alkalosis. Chest x-ray shows cardiomegaly with pulmonary vascular congestion and the patient was given 20 mg of IV Lasix earlier by cardiothoracic surgery. Mediastinal and right pleural chest tube has been removed. The patient has a left-sided chest tube in place. Sternum stable clean and intact. No major edema in lower extremities. After being taken off sedation, check weaning parameters and the patient was becoming quite restless even on assist control mode of ventilation. She was becoming tachypneic and her minute ventilation was high. She was able to generate more than 400 mL of tidal volume and a support of 5 and a PEEP of 5. At that point, I made a decision to extubate this patient to a BiPAP at a pressure of 12/5 cm of water and FiO2 of 60%. One hour following extubation, blood gases was done and showed a pH of 7.42 with a pCO2 of 37 and pO2 of 76. She is still lethargic and somewhat sleepy. She is arousable however. She did have some hypertensive reaction for which she was given 5 g of IV Lopressor. She is a bit anxious and she'll be given 1 mg of Ativan. Additional dose of 40 because of Lasix will be given. I am inclined not to reintubate this patient. I'm trying to stabilize her condition to avoid reintubation. Note that she has a restrictive lung disease pH is obese. Her FVC and FEV1 were in the 55% of age preoperatively. Her lung volumes are small on today's chest x-ray. On 03/11/2017 the patient is being seen in follow-up. After being extubated for few hours the patient had to be intubated. Immediately after the intubation she had frothy rest or secretions with orotracheal tube and she was suspected to be in acute pulmonary edema. Based on that the patient with diuresis with IV Lasix and since then her fluid balance has been negative. She has diuresed another 1 L since yesterday. She is sedated on Diprivan and she is calm and comfortable. She is on a mechanical ventilator on assist control mode at the rate of 2, tidal volume 400, FiO2 of 40% and a PEEP of 7. The vent changes were adjusted this morning after I reviewed the blood gases and a chest x-ray. The chest x-ray shows some cardiomegaly and mild four-vessel congestion and a blood gas showed a pH of 7.42 with a pCO2 of 38 and pO2 136. Earlier this morning the patient was also having A dose of hypotension. His systolic blood pressure was dropping in the mid 80s. She was placed on norepinephrine infusion and was running at around 4-5 mics to maintain a mean artery pressure above 65. Cardiac rhythm is atrial fibrillation. She was having episodes of bradycardia and tachycardia. I noted on several occasions that the patient's backup pacemaker was discharging. At the rate is stage became tachycardic. CT surgery was involved and the patient was given digoxin 0.5 mg. She is currently ventricular paced at the rate of 65. The underlying rhythm was asystole. Note that she had gotten her metoprolol earlier this morning. She is back on her tube feeds and currently she is on vital high protein at the rate of 40 mL an hour. In terms of fluid balance, she is on IV D5 water at the rate of 40. Producing somewhere between 75 mL an hour of urine output. Afebrile. The patient is seen again today 03/12/2017 in follow-up in the intensive care unit. She remains intubated and on the mechanical ventilator. Currently in an assist-control mode with a rate of 12, tidal volume 400, FiO2 40 and a PEEP of 5. Morning blood gases reveal a P O2 of 74, pCO2 of 34 and a pH of 7.44. Today 's chest x-ray revealed overall stable findings, there is chronic parenchymal changes and cardiomegaly with patchy left basilar atelectasis. No new infiltrates are seen. She remains on norepinephrine at 3 mcg/m to maintain mean arterial pressure of 65 and greater. She is sedated on propofol at 35 mcg/ kg/m. She is on insulin drip at 5.5 units per hour. Her Vital high-protein tube feeds are currently on hold as the patient has been noticed to be pacemaker dependent and the plan is for insertion of a permanent pacemaker today. On 03/13/2017 the patient is being seen in follow-up in the intensive care unit. She is was sedated and she is calm and comfortable. Noted the patient underwent a pacemaker insertion yesterday for postoperative asystole. The patient postop developed a 50% pneumothorax on the left. A chest tube was inserted in the intensive care unit without any complication today's chest x- ray shows full expansion of the left lung without evidence of any pneumothorax or air leak. Meanwhile, the patient is still on a mechanical ventilator assist control mode with tidal volume 400, FiO2 of 50% and a PEEP of 5. The blood gases showed a pH of 7.5 with a pCO2 of 31 and pO2 of 60. Chest x-ray is showing thyromegaly and pulmonary vessel congestion. Sodium level is at 142. Hemoglobin is at 7.3 which is a gram lower compared to yesterday. A sedation holiday will be done and we'll check again the weaning parameters., Judgment the patient is not ready to wean yet. Oxidation is still borderline and there is not a whole lot of room for potential extubation on today's evaluation. She is tolerating her tube feeds. She is on 50 mics of the prevent. No fever. No chills. Sternum stable clean and intact. On 03/14/2017 the patient is being seen in follow-up in the intensive care units. She is calm and comfortable. She was given a sedation holiday and she woke up very appropriately today. She is following commands. She is still intubated on a mechanical ventilator. She is an assist-control mode at the rate of 12, FiO2 of 50%, tidal volume 400 and a PEEP of 5. Chest x-ray showing cardiomegaly, there is a left-sided chest tube in place without evidence of pneumothorax, ET tube is in a good location there is some mild pulmonary vascular congestion. The patient is on no pressors. Overnight she went into each of fibrillation with rapid ventricular response. She was placed on amiodarone drip. Note that she has a pacemaker in place as the patient went into complete asystole post AVR. She is producing adequate amount of urine output. Renal function is stable. There is Klebsiella growing in her sputum and based on that the patient be started on IV antibiotics. She is afebrile for now. No leukocytosis. Hemoglobin today is at 8.3. On 03/15/2017, patient remains on mechanical ventilation, earlier trial of weaning and holding sedation failed, patient was noted to be extremely agitated tachypneic and tachycardic, hence she had to be placed back on propofol, and back on assist control mode of mechanical ventilation. Patient is arousable, follows simple instructions, but clearly her gases are marginal, and her weaning parameters are poor considering her extreme agitation once off sedation. Her ventilator settings were reviewed, she is presently on FiO2 of 45 %, tidal volume of 400, PEEP of 5. Her flow rate is about 60 L/m, and that gives us an inspiratory and expiratory ratio of 1:2. ABG showed a pO2 of 66 pCO2 of 28 pH of 7.50, hence I cut down her before meals rate to 16. Her FiO2 is now 45% instead of 40%. CBC showed the PEEP cigar of 11.8 hemoglobin of 7.9. BUN is 65 creatinine of 1.09. Gram stain of the sputum and culture showed Klebsiella oxytoca patient is on Rocephin. On 03/16/2017, patient remains on mechanical ventilation, I went ahead and stopped her propofol, patient seems to be appropriate, follows simple instructions, but she seems to be generally weak and frail. I would proceed later with pressure support and CPAP, and if she gets agitated may utilize a Precedex. Reviewed her labs, ABG showed a pO2 of 85 pCO2 of 53 3 pH of 7.42. Hemoglobin is 7.7, renal profile showed a BUN of 64 creatinine of 1.0. Chest x- ray showed mostly by basilar opacities and strongly suspicious for atelectasis. Doubt underlying pneumonia. On 03/17/2017, patient remains on mechanical ventilation, she is now on Precedex replacing propofol, seems to be appropriate, however she was noted to have some weakness on the left side, CT of the brain was done earlier today and it came back negative for acute process. Patient was kept on Precedex, she was placed on pressure support of 8 and CPAP for almost an hour and she seemed to do quite well. Hence after reviewing all her labs, x-ray, and CT of the brain, I extubated the patient to BiPAP. So far the process of weaning and extubation seems to be tolerated. ABG this morning showed a pO2 of 89 pCO2 of 34 pH of 7.42 and this was on assist control mode of mechanical ventilation, and FiO2 of 45%. Patient was reevaluated today on 03/18/2017, she seems to have tolerated the extubation well over the last 24 hours. However her overall clinical condition remains marginal, patient has some difficulty swallowing, and a nasogastric tube was placed, she is not quite ready to swallow on her own at this point. Swallow evaluation will be done, in the meantime we'll try to feed the patient via nasogastric tube. Patient seems to be generally weak, frail, she is doing very poorly when it comes incentive spirometry for deep coughing and deep breathing. Thyroid profile was ordered. Patient will definitely need a alf of rehab and long-term of occupational and physical therapy. Labs were reviewed CBC is relatively normal hemoglobin is 8.3 electrolytes are noted, BUN is 58 creatinine is 1.0. Patient seems to be quite edematous, hence one dose of Lasix will be given. Chest x-ray is showing mostly atelectasis at the bases. Reevaluated today on 03/19/2017, patient is slightly bit more awake compared to yesterday. Continues to tolerate the extubation quite well. A Dobbhoff tube was placed today for feeding. Her nasogastric tube was removed. Labs were reviewed, CBC was unremarkable, basic metabolic profile was noted sodium is 148 BUN is 63 creatinine is 1.20. Patient remained generally weak, however she is able to follow simple instructions, seems to be a bit weaker on the left side especially in the left lower exudative. CT of the brain was negative for acute stroke. Reevaluated on 03/20/2017, patient continues to do relatively well, generally weak and fatigued, in no form of acute distress, remains on antibiotics for positive Klebsiella pneumonia in the sputum, and she is on Rocephin. Chest x- ray is showing mostly minimal atelectasis at the bases. No clear-cut evidence of pneumonia. Patient continues to have weak cough, and she does extremely poor with incentive spirometry. Presently on nasal cannula at 5 L/m. Hemoglobin today is 8.2, sodium is significantly on the rise, it is 150 today, hence I recommended free water flushes via Dobbhoff tube to be increased to 100 mL every 4 hours. Objective - Vital Signs Vital signs: Vital Signs Temp 97.5 F L 03/20/17 08:00 Pulse 69 03/20/17 10:00 Resp 20 03/20/17 10:00 BP 148/73 03/20/17 10:00 Pulse Ox 93 L 03/20/17 10:00 Intake & Output 03/19/17 03/20/17 03/20/17 18:59 06:59 18:59 Intake Total 1240 690 250 Output Total 810 620 200 Balance 430 70 50 Weight 87.9 kg 89.8 kg Intake: IV 220 240 130 D5W 20 Sodium Chloride 0.9% 1, 220 240 10 000 ml @ 20 mls/hr IV . Q24H [facility] Rx#:[id number] cefTRIAXone 1,000 mg In 100 Sodium Chloride 0.9% 50 ml @ 100 mls/hr IVPB Q24HR [facility] Rx#:[id number] Intake, IV Titration 50 Amount cefTRIAXone 1,000 mg In 50 Sodium Chloride 0.9% 50 ml @ 100 mls/hr IVPB Q24HR [facility] Rx#:[id number] Oral 180 Tube Feeding 610 360 120 Other 180 90 Output: Urine 810 620 200 Other: Voiding Method Indwelling Catheter Indwelling Catheter Indwelling Catheter # Voids 35 ABP, PAP, CO, CI - Last Documented Arterial Blood Pressure 130/48 Pulmonary Artery Pressure 43/32 Cardiac Output 3.9 Cardiac Index 2.3 - Exam Physical Exam: Revealed a 76-year-old female on nasal cannula, looks frail weak and pale, presently on 4 L nasal cannula. With O2 saturation in the low 90s. HEENT:[Neck is supple.] [No neck masses.] [No thyromegaly.] [No JVD.]. Dobbhoff tube was noted... Chest: [Extremely diminished breath sounds at the bases, no crackles or rhonchi or wheezes..] Cardiac Exam: [Normal S1 and S2, no S3 gallop, no murmur.] Abdomen: [Soft, nontender, no megaly, no rebound, no guarding, normal bowel sounds.] Extremities: [No clubbing, 1+ bipedal edema, no cyanosis.] Neurological Exam: [No focal neurologic deficit.] However, the patient seems to be generally weak with mostly proximal weakness of her muscles. - Labs CBC & Chem 7: 03/20/17 05:05 03/20/17 05:05 Labs: Abnormal Lab Results - Last 24 Hours (Table) 03/19/17 03/20/17 03/20/17 Range/Units 17:49 00:16 05:00 RBC (3.80-5.40) m/uL Hgb (11.4-16.0) gm/dL Hct (34.0-46.0) % MCH (25.0-35.0) pg MCHC (31.0-37.0) g/dL RDW (11.5-15.5) % Lymphocytes # (Manual) (1.0-4.8) k/uL Metamyelocytes # (Man) (0) k/uL Nucleated RBCs (0-0) /100 WBC Sodium (137-145) mmol/L Chloride (98-107) mmol/L BUN (7-17) mg/dL Glucose (74-99) mg/dL POC Glucose (mg/dL) 120 H 216 H 198 H (75-99) mg/dL Ionized Calcium Luz Elena (4.5-5.3) mg/dL Phosphorus (2.5-4.5) mg/dL Magnesium (1.6-2.3) mg/dL Alkaline Phosphatase (38-126) U/L Total Protein (6.3-8.2) g/dL Albumin (3.5-5.0) g/dL 03/20/17 03/20/17 03/20/17 Range/Units 05:05 05:05 11:48 RBC 3.53 L (3.80-5.40) m/uL Hgb 8.2 L (11.4-16.0) gm/dL Hct 28.5 L (34.0-46.0) % MCH 23.2 L (25.0-35.0) pg MCHC 28.7 L (31.0-37.0) g/dL RDW 23.6 H (11.5-15.5) % Lymphocytes # (Manual) 0.81 L (1.0-4.8) k/uL Metamyelocytes # (Man) 0.09 H (0) k/uL Nucleated RBCs 5 H (0-0) /100 WBC Sodium 150 H (137-145) mmol/L Chloride 118 H (98-107) mmol/L BUN 58 H (7-17) mg/dL Glucose 200 H (74-99) mg/dL POC Glucose (mg/dL) 215 H (75-99) mg/dL Ionized Calcium Luz Elena 5.4 H (4.5-5.3) mg/dL Phosphorus 4.7 H (2.5-4.5) mg/dL Magnesium 2.6 H (1.6-2.3) mg/dL Alkaline Phosphatase 209 H (38-126) U/L Total Protein 5.2 L (6.3-8.2) g/dL Albumin 2.5 L (3.5-5.0) g/dL Assessment and Plan Plan: 1 aortic valve replacement for severe bicuspid aortic valve stenosis, patient is postop day # 16 2 postoperative mediastinal bleeding, recovered 3 postoperative cardiac arrhythmia, asystole, status post insertion of a pacemaker. 4 acute hypoxic respiratory failure, expected outcome of surgery. The patient was successfully extubated on 03/17/2017. 5 iatrogenic left-sided pneumothorax status post chest tube insertion with successful expansion of the left lung without evidence of any air leak. 6 hypertension, history of 7 CVA/TIA, history of 8 bronchial asthma, history of 9 obesity 10 restrictive lung physiology on preop spirometry with an FEV1 of 56% of predicted. 11 thrombocytopenia, recovered 12 postoperative anemia, expected, hemoglobin is at 8.2 13 hypernatremia, and free water deficit, hence the patient will be given water flushes via Dobbhoff tube and we'll monitor her sodium daily. Recommendation: Continue present supportive care measures, incentive spirometry , physical therapy, address nutrition via Dobbhoff tube, failed swallow evaluation patient is still quite marginal considering her profound weakness. Continue O2 via nasal cannula, may use BiPAP if needed. No plans to transfer the patient out of the ICU at this point yet. Prognosis remains guarded. Time with Patient: Less than 30
[2017-03-20] MEDS: CYANOCOBALAMIN 500 MCG TAB PO SCH (12:55)
[2017-03-20 18:35] LABS: Glucose,Whole Blood 149 mg/dL (75-99)
[2017-03-20] MEDS: ATORVASTATIN 40 MG TAB PO SCH (20:38)
[2017-03-20 21:29] LABS: Glucose,Whole Blood 186 mg/dL (75-99)
[2017-03-20] MEDS: INSULIN GLARGINE 100 UNIT/ML 10 ML VIAL SQ SCH (21:36)
[2017-03-20] MEDS: SENNOSIDES-DOCUSATE SODIUM 1 EACH TAB PO SCH (21:37)
[2017-03-21 00:45] LABS: Glucose,Whole Blood 199 mg/dL (75-99)
[2017-03-21] MEDS: OFLOXACIN 0.3% OPHTH DROPS 5 ML BOTTLE RIGHT EYE SCH ×5 (00:51→23:02)
[2017-03-21] MEDS: prednisoLONE ACETATE 1% OPHTH DROPS 1 ML BTL RIGHT EYE SCH ×5 (00:52→23:02)
[2017-03-21] MEDS: INSULIN LISPRO (humaLOG) 300 UNIT/3 ML VIAL SQ SCH ×7 (00:52→23:01)
[2017-03-21] MEDS: hydrALAZINE HCL 20 MG/ML 1 ML VIAL IVP PRN (00:52)
[2017-03-21] MEDS: HYDROcodone/APAP 5-325MG 1 EACH TAB PO PRN ×2 (01:53→23:00)
[2017-03-21 04:25] LABS: Glucose,Whole Blood 187 mg/dL (75-99)
[2017-03-21 04:44] LABS: Anisocytosis Moderate; CH 24.3; CHCM 30.6; HCT 29.7 % (34.0-46.0); HDW 4.02; HGB 8.8 gm/dL (11.4-16.0); Hypochromasia Marked; MCH 23.6 pg (25.0-35.0); MCHC 29.5 g/dL (31.0-37.0); Mean Platelet Volume 8.4; Microcytosis Moderate; Poikilocytosis Moderate; RBC 3.71 m/uL (3.80-5.40); RDW 23.9 % (11.5-15.5); WBC (Perox) 10.15
[2017-03-21 04:57] LABS: Anion Gap 9 mmol/L; Blood Urea Nitrogen 45 mg/dL (7-17); Carbon Dioxide 25 mmol/L (22-30); Chloride 116 mmol/L (98-107); Glucose 189 mg/dL (74-99); Magnesium 2.3 mg/dL (1.6-2.3); Non-African American GFR(MDRD) >60 (>60 ml/min/1.73 sqM); Potassium 4.1 mmol/L (3.5-5.1); Sodium 150 mmol/L (137-145)
[2017-03-21 05:03] LABS: Ionized Calcium 5.5 mg/dL (4.5-5.3)
[2017-03-21 05:29] LABS: Add Differential Manual Differential
[2017-03-21 05:33] LABS: Band Neutrophils % 2 %; Large Platelets Present; Manual Review Performed; Nucleated Red Blood Cells 5 /100 WBC (0-0); Polychromasia Present; Total Cells Counted 200; WBC 9.5 k/uL (3.8-10.6)
[2017-03-21] MEDS: HEPARIN SODIUM,PORCINE 5,000 UNIT/ML 1 ML VIAL SQ SCH ×3 (05:54→20:12)
[2017-03-21 06:00] LABS: Glucose,Whole Blood 172 mg/dL (75-99)
--- NOTE | 2017-03-21 07:59 | XR ---
EXAMINATION TYPE: XR chest 1V portable DATE OF EXAM: 03/21/2017 COMPARISON: 03/20/2017 INDICATION: Post cardiac surgery TECHNIQUE: Single frontal view of the chest is obtained. FINDINGS: The heart size is mildly prominent. The pulmonary vasculature is mildly prominent. These have improved slightly from the interval.. Small right pleural effusion is present. Sternotomy wires are present from cardiac valve surgery. Electronic device overlies the left chest. Dobbhoff tube appears to be present with the tip in left upper quadrant of the abdomen. IMPRESSION: 1. Mild right pleural effusion. 2. Mild cardiomegaly. 3. Volume overload. Overt congestive heart failure or pulmonary edema is not radiographically evident .
[2017-03-21 08:11] LABS: Glucose,Whole Blood 145 mg/dL (75-99)
--- NOTE | 2017-03-21 08:23 | P.PN ---
<Simran Roberts - Last Filed: 03/21/17 08:12> Subjective Principal diagnosis: Bicuspid aortic valve with critical aortic stenosis, aortic insufficiency. CAD. Diabetes mellitus. Hypertension. History of TIAs, neuropathy, pericarditis, scoliosis, brain concussion. History of paroxysmal atrial fibrillation POD #17 elective aortic valve replacement with #25 mm magna ease bioprosthetic aortic valve, a clip ligation into left atrial appendage with a #35 mm AtriClip and intraoperative transesophageal echocardiogram. Postoperative acute blood loss anemia, a potential expected outcome of surgery. POD #17 reexploration of the chest, evacuation of clot, control of bleed. Postoperative hypoxic respiratory failure requiring prolonged mechanical ventilation, a potential expected outcome of surgery. POD #15 placement of right pleural chest tube for pleural effusion Postoperative hypovolemic shock, inherent to the surgery Postoperative paroxysmal atrial fibrillation, and expected outcome of surgery POD #9 dual-chamber pacemaker insertion, transvenous under fluoroscopic vision for sick sinus syndrome versus asystole, inherent to aortic valve surgery. POD #9 placement of left pleural chest tube for left pneumothorax as a result of pacemaker placement, inherent to the surgery. Sputum culture positive for Klebsiella, antibiotics per pulmonology. Patient is currently sitting up in bed in no acute distress. Awake and alert and following commands. Had an episode of respiratory distress last night requiring BiPAP for a short amount of time. Currently on high flow nasal cannula. Passed bedside swallow yesterday, patient tolerating sips of water without coughing or choking. Objective - Vital Signs Vital signs: Vital Signs Temp 97.6 F 03/21/17 08:00 Pulse 69 03/21/17 08:00 Resp 20 03/21/17 08:00 BP 152/63 03/21/17 08:00 Pulse Ox 94 L 03/21/17 08:00 Intake & Output 03/20/17 03/21/17 03/21/17 18:59 06:59 18:59 Intake Total 870 1390 130 Output Total 780 910 100 Balance 90 480 30 Weight 86.2 kg Intake: IV 220 110 10 D5W 110 110 10 Sodium Chloride 0.9% 1, 10 000 ml @ 20 mls/hr IV . Q24H [facility] Rx#:[id number] cefTRIAXone 1,000 mg In 100 Sodium Chloride 0.9% 50 ml @ 100 mls/hr IVPB Q24HR [facility] Rx#:[id number] Oral 360 Tube Feeding 450 420 60 Other 200 500 60 Output: Urine 780 910 100 Other: Voiding Method Indwelling Catheter Indwelling Catheter # Bowel Movements 1 ABP, PAP, CO, CI - Last Documented Arterial Blood Pressure 130/48 Pulmonary Artery Pressure 43/32 Cardiac Output 3.9 Cardiac Index 2.3 - Constitutional General appearance: Present: cooperative, no acute distress - Respiratory Details: Lung sounds diminished bilaterally. Respirations even, nonlabored. Currently weaned down from 12 L high flow to 8 L high flow with oxygen saturation 95%. Only able to achieve 250 mL on incentive spirometry. - Cardiovascular Details: S1, S2 present. Currently AV paced on telemetry. Sternum stable. Generalized edema still present. Palpable pulses bilaterally. Right radial A-line, left brachial PICC line present. Heart hugger in place with patient unable to demonstrate appropriate use. Teds/SCDs present. - Gastrointestinal Gastrointestinal Comment(s): Abdomen soft, nontender, nondistended. Active bowel sounds 4 quadrants. Tolerating tube feeding through a Dobbhoff at 30 mL/h. Tolerating sips of water without coughing or choking. - Genitourinary Genitourinary Comment(s): Cuellar present draining clear, yellow urine. Output 50-125 mL per hour overnight. - Integumentary Integumentary Comment(s): Anterior chest incision well approximated Dermabond dressing. Previous left lateral chest tube site continues with serous drainage. - Neurologic Neurologic Comment(s): Able to move all 4 extremities. - Musculoskeletal Musculoskeletal: Present: generalized weakness - Psychiatric Psychiatric: Present: A&O x's 3, appropriate affect - Allied health notes Allied health notes reviewed: nursing - Labs CBC & Chem 7: 03/21/17 04:30 03/21/17 04:30 Labs: Abnormal Lab Results - Last 24 Hours (Table) 03/20/17 03/20/17 03/20/17 Range/Units 11:48 18:32 21:28 RBC (3.80-5.40) m/uL Hgb (11.4-16.0) gm/dL Hct (34.0-46.0) % MCH (25.0-35.0) pg MCHC (31.0-37.0) g/dL RDW (11.5-15.5) % Nucleated RBCs (0-0) /100 WBC Sodium (137-145) mmol/L Chloride (98-107) mmol/L BUN (7-17) mg/dL Glucose (74-99) mg/dL POC Glucose (mg/dL) 215 H 149 H 186 H (75-99) mg/dL Ionized Calcium Luz Elena (4.5-5.3) mg/dL 03/21/17 03/21/17 03/21/17 Range/Units 00:43 04:21 04:30 RBC 3.71 L (3.80-5.40) m/uL Hgb 8.8 L (11.4-16.0) gm/dL Hct 29.7 L (34.0-46.0) % MCH 23.6 L (25.0-35.0) pg MCHC 29.5 L (31.0-37.0) g/dL RDW 23.9 H (11.5-15.5) % Nucleated RBCs 5 H (0-0) /100 WBC Sodium (137-145) mmol/L Chloride (98-107) mmol/L BUN (7-17) mg/dL Glucose (74-99) mg/dL POC Glucose (mg/dL) 199 H 187 H (75-99) mg/dL Ionized Calcium Luz Elena (4.5-5.3) mg/dL 03/21/17 03/21/17 03/21/17 Range/Units 04:30 05:58 08:10 RBC (3.80-5.40) m/uL Hgb (11.4-16.0) gm/dL Hct (34.0-46.0) % MCH (25.0-35.0) pg MCHC (31.0-37.0) g/dL RDW (11.5-15.5) % Nucleated RBCs (0-0) /100 WBC Sodium 150 H (137-145) mmol/L Chloride 116 H (98-107) mmol/L BUN 45 H (7-17) mg/dL Glucose 189 H (74-99) mg/dL POC Glucose (mg/dL) 172 H 145 H (75-99) mg/dL Ionized Calcium Luz Elena 5.5 H (4.5-5.3) mg/dL - Imaging and Cardiology Chest x-ray: report reviewed, image reviewed Assessment and Plan (1) History of TIA (transient ischemic attack) Status: Acute (2) Hyperlipidemia Status: Acute (3) Osteoarthritis Status: Acute (4) Acute blood loss as cause of postoperative anemia Status: Acute (5) Paroxysmal atrial fibrillation Status: Acute (6) Status post aortic valve replacement Status: Acute (7) Bicuspid aortic valve Status: Acute (8) Diabetes mellitus, insulin dependent (IDDM), controlled Status: Acute (9) Hypertension Status: Acute (10) Severe aortic stenosis Status: Acute Plan: 1. Continue aspirin, Plavix, beta daysi, JENNIFER inhibitor, statin. Will maximize beta daysi therapy as able. 2. Continue amiodarone for A. fib prophylaxis. Will decrease dose to 200 mg by mouth twice daily tomorrow. Will consider anticoagulation at discharge, will hold off for now, patient did have left atrial appendage ligated. 3. Wean O2 as tolerated. Encourage incentive spirometry use. Sputum culture positive for Klebsiella, continue ceftriaxone per pulmonary services. 4. Speech therapy to re-evaluate swallowing tomorrow. Passed bedside swallow. Diet initiated. Tube feeding to continue to meet caloric needs. 5. Increase activity as tolerated. Physical and occupational therapy following. 6. Continue Cuellar for strict accurate intake and output. 7. Monitor daily labs, chest x-rays. 8. GI/DVT prophylaxis. 9. Insulin management per primary service. Basal insulin increased for better blood sugar control. 10. More recommendations as patient progresses. Referrals sent by mental health social worker for subacute rehab, discharge planning in progress. Time with Patient: Greater than 30 <Curly Boone - Last Filed: 03/21/17 13:27> Objective - Vital Signs Vital signs: Vital Signs Temp 98.2 F 03/21/17 12:00 Pulse 69 03/21/17 12:00 Resp 28 H 03/21/17 12:00 BP 117/51 03/21/17 12:00 Pulse Ox 94 L 03/21/17 12:00 Intake & Output 03/20/17 03/21/17 03/21/17 18:59 06:59 18:59 Intake Total 870 1390 900 Output Total 780 910 305 Balance 90 480 595 Weight 86.2 kg Intake: IV 220 110 60 D5W 110 110 10 Sodium Chloride 0.9% 1, 10 000 ml @ 20 mls/hr IV . Q24H [facility] Rx#:[id number] cefTRIAXone 1,000 mg In 100 50 Sodium Chloride 0.9% 50 ml @ 100 mls/hr IVPB Q24HR [facility] Rx#:[id number] Oral 360 340 Tube Feeding 450 420 240 Other 200 500 260 Output: Urine 780 910 305 Other: Voiding Method Indwelling Catheter Indwelling Catheter Indwelling Catheter # Bowel Movements 1 ABP, PAP, CO, CI - Last Documented Arterial Blood Pressure 130/48 Pulmonary Artery Pressure 43/32 Cardiac Output 3.9 Cardiac Index 2.3 - Labs CBC & Chem 7: 03/21/17 04:30 03/21/17 04:30 Labs: Abnormal Lab Results - Last 24 Hours (Table) 03/20/17 03/20/17 03/21/17 Range/Units 18:32 21:28 00:43 RBC (3.80-5.40) m/uL Hgb (11.4-16.0) gm/dL Hct (34.0-46.0) % MCH (25.0-35.0) pg MCHC (31.0-37.0) g/dL RDW (11.5-15.5) % Nucleated RBCs (0-0) /100 WBC Sodium (137-145) mmol/L Chloride (98-107) mmol/L BUN (7-17) mg/dL Glucose (74-99) mg/dL POC Glucose (mg/dL) 149 H 186 H 199 H (75-99) mg/dL Ionized Calcium Luz Elena (4.5-5.3) mg/dL 03/21/17 03/21/17 03/21/17 Range/Units 04:21 04:30 04:30 RBC 3.71 L (3.80-5.40) m/uL Hgb 8.8 L (11.4-16.0) gm/dL Hct 29.7 L (34.0-46.0) % MCH 23.6 L (25.0-35.0) pg MCHC 29.5 L (31.0-37.0) g/dL RDW 23.9 H (11.5-15.5) % Nucleated RBCs 5 H (0-0) /100 WBC Sodium 150 H (137-145) mmol/L Chloride 116 H (98-107) mmol/L BUN 45 H (7-17) mg/dL Glucose 189 H (74-99) mg/dL POC Glucose (mg/dL) 187 H (75-99) mg/dL Ionized Calcium Luz Elena 5.5 H (4.5-5.3) mg/dL 03/21/17 03/21/17 03/21/17 Range/Units 05:58 08:10 11:54 RBC (3.80-5.40) m/uL Hgb (11.4-16.0) gm/dL Hct (34.0-46.0) % MCH (25.0-35.0) pg MCHC (31.0-37.0) g/dL RDW (11.5-15.5) % Nucleated RBCs (0-0) /100 WBC Sodium (137-145) mmol/L Chloride (98-107) mmol/L BUN (7-17) mg/dL Glucose (74-99) mg/dL POC Glucose (mg/dL) 172 H 145 H 176 H (75-99) mg/dL Ionized Calcium Luz Elena (4.5-5.3) mg/dL Assessment and Plan Plan: The patient was seen and examined. I agree with the above assessment and plan. Overnight she developed some hypoxia which required BiPAP. This morning she is back down to 8 L nasal cannula. She appears to be comfortable. She did tolerate oatmeal for breakfast. She continues to receive her tube feeds. She is moving all extremities but remains profoundly lethargic and weak. Physical therapy is working with her. She will likely be transferred to [facility] care tomorrow.
[2017-03-21] MEDS: AMIODARONE 200 MG TAB PO SCH ×2 (08:31→20:12)
[2017-03-21] MEDS: LISINOPRIL 10 MG TAB PO SCH ×2 (08:31→20:13)
[2017-03-21] MEDS: PANTOPRAZOLE 40 MG TABLET PO SCH (08:31)
[2017-03-21] MEDS: CALCIUM CARB-VIT D 500MG-200UN 1 EACH TAB PO SCH (08:31)
[2017-03-21] MEDS: CLOPIDOGREL 75 MG TAB PO SCH (08:31)
[2017-03-21] MEDS: NYSTATIN 100,000 UNIT/ML SUSP 500,000 UNIT/5 ML CUP PO SCH ×4 (08:32→21:21)
[2017-03-21] MEDS: ASPIRIN 325 MG TAB PO SCH (08:32)
[2017-03-21] MEDS: METOPROLOL TARTRATE 50 MG TAB PO SCH ×2 (08:36→20:13)
[2017-03-21] MEDS ORDERED: FUROSEMIDE 10 MG/ML 4 ML VIAL IV STA (09:59)
--- NOTE | 2017-03-21 11:18 | P.PN ---
Subjective Principal diagnosis: Bicuspid aortic valve with critical aortic stenosis, aortic insufficiency. CAD. Diabetes mellitus. Hypertension. History of TIAs, neuropathy, pericarditis, scoliosis, brain concussion. History of paroxysmal atrial fibrillation POD # 17 elective aortic valve replacement with #25 mm magna ease bioprosthetic aortic valve, a clip ligation into left atrial appendage with a #35 mm AtriClip and intraoperative transesophageal echocardiogram. Postoperative acute blood loss anemia, a potential expected outcome of surgery. POD # 17 reexploration of the chest, evacuation of clot, control of bleed. Postoperative hypoxic respiratory failure requiring prolonged mechanical ventilation, a potential expected outcome of surgery. POD # 15 placement of right pleural chest tube for pleural effusion Postoperative hypovolemic shock, inherent to the surgery Postoperative paroxysmal atrial fibrillation, and expected outcome of surgery POD # 9 dual-chamber pacemaker insertion, transvenous under fluoroscopic vision for sick sinus syndrome versus asystole, inherent to aortic valve surgery. POD # 9 placement of left pleural chest tube for left pneumothorax as a result of pacemaker placement, inherent to the surgery. 76-year-old male patient is postop day #4 following aortic valve replacement. Patient also is known to have previous CVA, bronchial asthma, hyperlipidemia, diabetes and hypertension. Surgery was done for bicuspid aortic valve and the patient is status post aortic valve replacement, bioprosthetic valve. Postop, the patient developed some mediastinal bleeding with hypotension. Based on that the patient was taken back to the operating room to control the bleed and during the process the patient was given a total of 4 units of packed RBC, 2 units of fresh frozen plasma one unit of platelets. The patient was kept intubated on mechanical ventilator. As mentioned today's postop day #4 On today's evaluation, the patient remains on a mechanical ventilator. The patient is an assist-control mode of ventilation with a rate of 24, tidal volume 350, FiO2 of 60% and a PEEP of 10. She is intubated with a #8 ET tube. Chest x-ray from today shows adequate expansion of both lungs. Chest tubes are in place. ET tube is in place. She has some mild cardiomegaly. No sinus complaints or pleural effusions. No pneumothorax seen. The blood gases from this morning showed a pH of 7.38 with a pCO2 of 36 and pO2 of 76. Hemodynamically the patient is stable. The patient is producing adequate amount of urine output. The patient is on no pressors. The patient is on no clevidipine drip. Blood pressure is on under good control. The chest tubes are still in place. The patient has a right pleural and left pleural chest tube and 2 mediastinal chest tubes. All of them are showing minimal amount of drainage and the patient would have the mediastinal and the right sided chest tube pulled today. Platelet count improved and it's up to 148. Hemoglobin stable at 8.1. She is sedated with Diprivan. She is calm and comfortable. On 03/09/2017 the patient is still being seen in follow-up. The patient has been quite stable overnight. The patient is on a mechanical ventilator and based on the most is a vent changes she is on a rate of 24, tidal volume 450, FiO2 has been down to 40% and I cut down the PEEP down to 8 and then down to 5 cm of water. The patient's chest x-ray showing cardiomegaly and there is a component of pulmonary vessel congestion. The patient was given 20 mg of IV Lasix this morning. She is producing adequate amount of urine output. The mediastinal and the right pleural chest tube has been removed. The patient has a left pleural chest tube only. No fever. No chills. Tolerating tube feeds. No other significant events overnight. Blood gases from this morning showed a pH of 7.48 with a pCO2 of 29 and a pO2 of 83. Hemoglobin stable at 8.5. On 03/10/2017 the patient is being seen in follow-up. She was taken off sedation this morning and she was very slow in recovering from sedation. Despite being off the sedation for few hours, the patient is still lethargic. She is arousable and she can follow simple commands. She is not fully alert however. She remains on same vent settings overnight which included an assist- control of 24, tidal volume 450, FiO2 of 40% and a PEEP of 5. Blood gases from this morning showed a component of respiratory alkalosis. Chest x-ray shows cardiomegaly with pulmonary vascular congestion and the patient was given 20 mg of IV Lasix earlier by cardiothoracic surgery. Mediastinal and right pleural chest tube has been removed. The patient has a left-sided chest tube in place. Sternum stable clean and intact. No major edema in lower extremities. After being taken off sedation, check weaning parameters and the patient was becoming quite restless even on assist control mode of ventilation. She was becoming tachypneic and her minute ventilation was high. She was able to generate more than 400 mL of tidal volume and a support of 5 and a PEEP of 5. At that point, I made a decision to extubate this patient to a BiPAP at a pressure of 12/5 cm of water and FiO2 of 60%. One hour following extubation, blood gases was done and showed a pH of 7.42 with a pCO2 of 37 and pO2 of 76. She is still lethargic and somewhat sleepy. She is arousable however. She did have some hypertensive reaction for which she was given 5 g of IV Lopressor. She is a bit anxious and she'll be given 1 mg of Ativan. Additional dose of 40 because of Lasix will be given. I am inclined not to reintubate this patient. I'm trying to stabilize her condition to avoid reintubation. Note that she has a restrictive lung disease pH is obese. Her FVC and FEV1 were in the 55% of age preoperatively. Her lung volumes are small on today's chest x-ray. On 03/11/2017 the patient is being seen in follow-up. After being extubated for few hours the patient had to be intubated. Immediately after the intubation she had frothy rest or secretions with orotracheal tube and she was suspected to be in acute pulmonary edema. Based on that the patient with diuresis with IV Lasix and since then her fluid balance has been negative. She has diuresed another 1 L since yesterday. She is sedated on Diprivan and she is calm and comfortable. She is on a mechanical ventilator on assist control mode at the rate of 2, tidal volume 400, FiO2 of 40% and a PEEP of 7. The vent changes were adjusted this morning after I reviewed the blood gases and a chest x-ray. The chest x-ray shows some cardiomegaly and mild four-vessel congestion and a blood gas showed a pH of 7.42 with a pCO2 of 38 and pO2 136. Earlier this morning the patient was also having A dose of hypotension. His systolic blood pressure was dropping in the mid 80s. She was placed on norepinephrine infusion and was running at around 4-5 mics to maintain a mean artery pressure above 65. Cardiac rhythm is atrial fibrillation. She was having episodes of bradycardia and tachycardia. I noted on several occasions that the patient's backup pacemaker was discharging. At the rate is stage became tachycardic. CT surgery was involved and the patient was given digoxin 0.5 mg. She is currently ventricular paced at the rate of 65. The underlying rhythm was asystole. Note that she had gotten her metoprolol earlier this morning. She is back on her tube feeds and currently she is on vital high protein at the rate of 40 mL an hour. In terms of fluid balance, she is on IV D5 water at the rate of 40. Producing somewhere between 75 mL an hour of urine output. Afebrile. The patient is seen again today 03/12/2017 in follow-up in the intensive care unit. She remains intubated and on the mechanical ventilator. Currently in an assist-control mode with a rate of 12, tidal volume 400, FiO2 40 and a PEEP of 5. Morning blood gases reveal a P O2 of 74, pCO2 of 34 and a pH of 7.44. Today 's chest x-ray revealed overall stable findings, there is chronic parenchymal changes and cardiomegaly with patchy left basilar atelectasis. No new infiltrates are seen. She remains on norepinephrine at 3 mcg/m to maintain mean arterial pressure of 65 and greater. She is sedated on propofol at 35 mcg/ kg/m. She is on insulin drip at 5.5 units per hour. Her Vital high-protein tube feeds are currently on hold as the patient has been noticed to be pacemaker dependent and the plan is for insertion of a permanent pacemaker today. On 03/13/2017 the patient is being seen in follow-up in the intensive care unit. She is was sedated and she is calm and comfortable. Noted the patient underwent a pacemaker insertion yesterday for postoperative asystole. The patient postop developed a 50% pneumothorax on the left. A chest tube was inserted in the intensive care unit without any complication today's chest x- ray shows full expansion of the left lung without evidence of any pneumothorax or air leak. Meanwhile, the patient is still on a mechanical ventilator assist control mode with tidal volume 400, FiO2 of 50% and a PEEP of 5. The blood gases showed a pH of 7.5 with a pCO2 of 31 and pO2 of 60. Chest x-ray is showing thyromegaly and pulmonary vessel congestion. Sodium level is at 142. Hemoglobin is at 7.3 which is a gram lower compared to yesterday. A sedation holiday will be done and we'll check again the weaning parameters., Judgment the patient is not ready to wean yet. Oxidation is still borderline and there is not a whole lot of room for potential extubation on today's evaluation. She is tolerating her tube feeds. She is on 50 mics of the prevent. No fever. No chills. Sternum stable clean and intact. On 03/14/2017 the patient is being seen in follow-up in the intensive care units. She is calm and comfortable. She was given a sedation holiday and she woke up very appropriately today. She is following commands. She is still intubated on a mechanical ventilator. She is an assist-control mode at the rate of 12, FiO2 of 50%, tidal volume 400 and a PEEP of 5. Chest x-ray showing cardiomegaly, there is a left-sided chest tube in place without evidence of pneumothorax, ET tube is in a good location there is some mild pulmonary vascular congestion. The patient is on no pressors. Overnight she went into each of fibrillation with rapid ventricular response. She was placed on amiodarone drip. Note that she has a pacemaker in place as the patient went into complete asystole post AVR. She is producing adequate amount of urine output. Renal function is stable. There is Klebsiella growing in her sputum and based on that the patient be started on IV antibiotics. She is afebrile for now. No leukocytosis. Hemoglobin today is at 8.3. On 03/15/2017, patient remains on mechanical ventilation, earlier trial of weaning and holding sedation failed, patient was noted to be extremely agitated tachypneic and tachycardic, hence she had to be placed back on propofol, and back on assist control mode of mechanical ventilation. Patient is arousable, follows simple instructions, but clearly her gases are marginal, and her weaning parameters are poor considering her extreme agitation once off sedation. Her ventilator settings were reviewed, she is presently on FiO2 of 45 %, tidal volume of 400, PEEP of 5. Her flow rate is about 60 L/m, and that gives us an inspiratory and expiratory ratio of 1:2. ABG showed a pO2 of 66 pCO2 of 28 pH of 7.50, hence I cut down her before meals rate to 16. Her FiO2 is now 45% instead of 40%. CBC showed the PEEP cigar of 11.8 hemoglobin of 7.9. BUN is 65 creatinine of 1.09. Gram stain of the sputum and culture showed Klebsiella oxytoca patient is on Rocephin. On 03/16/2017, patient remains on mechanical ventilation, I went ahead and stopped her propofol, patient seems to be appropriate, follows simple instructions, but she seems to be generally weak and frail. I would proceed later with pressure support and CPAP, and if she gets agitated may utilize a Precedex. Reviewed her labs, ABG showed a pO2 of 85 pCO2 of 53 3 pH of 7.42. Hemoglobin is 7.7, renal profile showed a BUN of 64 creatinine of 1.0. Chest x- ray showed mostly by basilar opacities and strongly suspicious for atelectasis. Doubt underlying pneumonia. On 03/17/2017, patient remains on mechanical ventilation, she is now on Precedex replacing propofol, seems to be appropriate, however she was noted to have some weakness on the left side, CT of the brain was done earlier today and it came back negative for acute process. Patient was kept on Precedex, she was placed on pressure support of 8 and CPAP for almost an hour and she seemed to do quite well. Hence after reviewing all her labs, x-ray, and CT of the brain, I extubated the patient to BiPAP. So far the process of weaning and extubation seems to be tolerated. ABG this morning showed a pO2 of 89 pCO2 of 34 pH of 7.42 and this was on assist control mode of mechanical ventilation, and FiO2 of 45%. Patient was reevaluated today on 03/18/2017, she seems to have tolerated the extubation well over the last 24 hours. However her overall clinical condition remains marginal, patient has some difficulty swallowing, and a nasogastric tube was placed, she is not quite ready to swallow on her own at this point. Swallow evaluation will be done, in the meantime we'll try to feed the patient via nasogastric tube. Patient seems to be generally weak, frail, she is doing very poorly when it comes incentive spirometry for deep coughing and deep breathing. Thyroid profile was ordered. Patient will definitely need a fdc of rehab and long-term of occupational and physical therapy. Labs were reviewed CBC is relatively normal hemoglobin is 8.3 electrolytes are noted, BUN is 58 creatinine is 1.0. Patient seems to be quite edematous, hence one dose of Lasix will be given. Chest x-ray is showing mostly atelectasis at the bases. Reevaluated today on 03/19/2017, patient is slightly bit more awake compared to yesterday. Continues to tolerate the extubation quite well. A Dobbhoff tube was placed today for feeding. Her nasogastric tube was removed. Labs were reviewed, CBC was unremarkable, basic metabolic profile was noted sodium is 148 BUN is 63 creatinine is 1.20. Patient remained generally weak, however she is able to follow simple instructions, seems to be a bit weaker on the left side especially in the left lower exudative. CT of the brain was negative for acute stroke. Reevaluated on 03/20/2017, patient continues to do relatively well, generally weak and fatigued, in no form of acute distress, remains on antibiotics for positive Klebsiella pneumonia in the sputum, and she is on Rocephin. Chest x- ray is showing mostly minimal atelectasis at the bases. No clear-cut evidence of pneumonia. Patient continues to have weak cough, and she does extremely poor with incentive spirometry. Presently on nasal cannula at 5 L/m. Hemoglobin today is 8.2, sodium is significantly on the rise, it is 150 today, hence I recommended free water flushes via Dobbhoff tube to be increased to 100 mL every 4 hours. Reevaluated today on 03/21/2017, patient desaturated last night, BiPAP was recommended, but the patient refused. Presently on high flow nasal cannula at 8 L, O2 saturation is in the mid 90s. Chest x-ray is showing mostly atelectasis with possibly some component of interstitial edema. However the patient's sodium is 150, and a bit reluctant to diurese the patient at this point. Patient is receiving free water flushes via Dobbhoff tube. Today she seems to be even more awake, she is even eating around the Dobbhoff tube without any difficulty. Denies any pain, denies any shortness of breath. Hemoglobin is 8.8. The rest of the labs were all reviewed, sodium is 150 being corrected. Renal profile is excellent with BUN of 45 creatinine of 0.88. Objective - Vital Signs Vital signs: Vital Signs Temp 97.6 F 03/21/17 08:00 Pulse 69 03/21/17 11:00 Resp 25 H 03/21/17 11:00 BP 147/51 03/21/17 11:00 Pulse Ox 94 L 03/21/17 11:00 Intake & Output 03/20/17 03/21/17 03/21/17 18:59 06:59 18:59 Intake Total 870 1390 540 Output Total 780 910 205 Balance 90 480 335 Weight 86.2 kg Intake: IV 220 110 60 D5W 110 110 10 Sodium Chloride 0.9% 1, 10 000 ml @ 20 mls/hr IV . Q24H [facility] Rx#:[id number] cefTRIAXone 1,000 mg In 100 50 Sodium Chloride 0.9% 50 ml @ 100 mls/hr IVPB Q24HR [facility] Rx#:[id number] Oral 360 240 Tube Feeding 450 420 180 Other 200 500 60 Output: Urine 780 910 205 Other: Voiding Method Indwelling Catheter Indwelling Catheter Indwelling Catheter # Bowel Movements 1 ABP, PAP, CO, CI - Last Documented Arterial Blood Pressure 130/48 Pulmonary Artery Pressure 43/32 Cardiac Output 3.9 Cardiac Index 2.3 - Exam Physical Exam: Revealed a 76-year-old female on nasal cannula, looks frail weak and pale, presently on 8 L nasal cannula. With O2 saturation in the low 90s. HEENT:[Neck is supple.] [No neck masses.] [No thyromegaly.] [No JVD.]. Dobbhoff tube was noted... Chest: [Extremely diminished breath sounds at the bases, no crackles or rhonchi or wheezes..] Cardiac Exam: [Normal S1 and S2, no S3 gallop, no murmur.] Abdomen: [Soft, nontender, no megaly, no rebound, no guarding, normal bowel sounds.] Extremities: [No clubbing, 1+ bipedal edema, no cyanosis.] Neurological Exam: [No focal neurologic deficit.] However, the patient seems to be generally weak with mostly proximal weakness of her muscles. - Labs CBC & Chem 7: 03/21/17 04:30 03/21/17 04:30 Labs: Abnormal Lab Results - Last 24 Hours (Table) 03/20/17 03/20/17 03/20/17 Range/Units 11:48 18:32 21:28 RBC (3.80-5.40) m/uL Hgb (11.4-16.0) gm/dL Hct (34.0-46.0) % MCH (25.0-35.0) pg MCHC (31.0-37.0) g/dL RDW (11.5-15.5) % Nucleated RBCs (0-0) /100 WBC Sodium (137-145) mmol/L Chloride (98-107) mmol/L BUN (7-17) mg/dL Glucose (74-99) mg/dL POC Glucose (mg/dL) 215 H 149 H 186 H (75-99) mg/dL Ionized Calcium Luz Elena (4.5-5.3) mg/dL 03/21/17 03/21/17 03/21/17 Range/Units 00:43 04:21 04:30 RBC 3.71 L (3.80-5.40) m/uL Hgb 8.8 L (11.4-16.0) gm/dL Hct 29.7 L (34.0-46.0) % MCH 23.6 L (25.0-35.0) pg MCHC 29.5 L (31.0-37.0) g/dL RDW 23.9 H (11.5-15.5) % Nucleated RBCs 5 H (0-0) /100 WBC Sodium (137-145) mmol/L Chloride (98-107) mmol/L BUN (7-17) mg/dL Glucose (74-99) mg/dL POC Glucose (mg/dL) 199 H 187 H (75-99) mg/dL Ionized Calcium Luz Elena (4.5-5.3) mg/dL 03/21/17 03/21/17 03/21/17 Range/Units 04:30 05:58 08:10 RBC (3.80-5.40) m/uL Hgb (11.4-16.0) gm/dL Hct (34.0-46.0) % MCH (25.0-35.0) pg MCHC (31.0-37.0) g/dL RDW (11.5-15.5) % Nucleated RBCs (0-0) /100 WBC Sodium 150 H (137-145) mmol/L Chloride 116 H (98-107) mmol/L BUN 45 H (7-17) mg/dL Glucose 189 H (74-99) mg/dL POC Glucose (mg/dL) 172 H 145 H (75-99) mg/dL Ionized Calcium Luz Elena 5.5 H (4.5-5.3) mg/dL Assessment and Plan Plan: 1 aortic valve replacement for severe bicuspid aortic valve stenosis, patient is postop day # 17 2 postoperative mediastinal bleeding, recovered 3 postoperative cardiac arrhythmia, asystole, status post insertion of a pacemaker. 4 acute hypoxic respiratory failure, expected outcome of surgery. The patient was successfully extubated on 03/17/2017. 5 iatrogenic left-sided pneumothorax status post chest tube insertion with successful expansion of the left lung without evidence of any air leak. 6 hypertension, history of 7 CVA/TIA, history of 8 bronchial asthma, history of 9 obesity 10 restrictive lung physiology on preop spirometry with an FEV1 of 56% of predicted. 11 thrombocytopenia, recovered 12 postoperative anemia, expected, hemoglobin is at 8.2 13 hypernatremia, and free water deficit, hence the patient will be given water flushes via Dobbhoff tube and we'll monitor her sodium daily. Recommendation: Continue present supportive care measures, incentive spirometry , physical therapy, address nutrition via Dobbhoff tube, failed swallow evaluation, but she seems to be swallowing fine today. patient is still quite marginal considering her profound weakness. Continue O2 via nasal cannula, may use BiPAP if needed. No plans to transfer the patient out of the ICU at this point yet. Prognosis remains guarded. Time with Patient: Less than 30
[2017-03-21 11:56] LABS: Glucose,Whole Blood 176 mg/dL (75-99)
[2017-03-21] MEDS: CYANOCOBALAMIN 500 MCG TAB PO SCH (12:21)
--- NOTE | 2017-03-21 12:35 | PN ---
This is a 76-year-old who underwent aortic valve replacement. She had complete heart block. She underwent dual chamber pacemaker implantation. She is doing well. She is sleeping comfortably. She has not had any symptoms according to the nurse. Her heart sounds S1/S2 are soft. Breath sounds are reduced bilaterally with no rhonchi, no crackles. IMPRESSION: Aortica valve replacement status post permanent pacemaker implantation. Protracted postoperative course, now extubated. SUGGEST: Continue current medications without any changes. CELESTED
[2017-03-21 16:08] LABS: Glucose,Whole Blood 114 mg/dL (75-99)
[2017-03-21] MEDS: ATORVASTATIN 40 MG TAB PO SCH (20:12)
[2017-03-21 20:13] LABS: Glucose,Whole Blood 179 mg/dL (75-99)
[2017-03-21] MEDS: INSULIN GLARGINE 100 UNIT/ML 10 ML VIAL SQ SCH (20:22)
[2017-03-21] MEDS: SENNOSIDES-DOCUSATE SODIUM 1 EACH TAB PO SCH (20:23)
[2017-03-21 20:49] LABS: Magnesium 1.9 mg/dL (1.6-2.3); Potassium 3.9 mmol/L (3.5-5.1)
[2017-03-21] MEDS ORDERED: POTASSIUM CHLORIDE ER 20 MEQ TAB.ER PO SCH (21:00)
[2017-03-21] MEDS: MAGNESIUM SULFATE-D5W PMX 1 GM in DEXTROSE/WATER 1 100ML.BAG IVPB SCH ×2 (21:21→22:46)
[2017-03-21 23:01] LABS: Glucose,Whole Blood 201 mg/dL (75-99)
[2017-03-22 03:51] LABS: Glucose,Whole Blood 136 mg/dL (75-99)
[2017-03-22 04:01] LABS: Anisocytosis Moderate; CH 24.3; CHCM 30.6; HDW 3.99; HGB 8.6 gm/dL (11.4-16.0); Hypochromasia Marked; MCH 23.6 pg (25.0-35.0); MCHC 29.5 g/dL (31.0-37.0); MCV 79.9 fL (80.0-100.0); Microcytosis Moderate; Poikilocytosis Slight; RBC 3.63 m/uL (3.80-5.40); RDW 23.5 % (11.5-15.5)
[2017-03-22 04:04] LABS: Ionized Calcium 5.1 mg/dL (4.5-5.3)
[2017-03-22] MEDS: INSULIN LISPRO (humaLOG) 300 UNIT/3 ML VIAL SQ SCH ×5 (04:05→22:45)
[2017-03-22] MEDS: HEPARIN SODIUM,PORCINE 5,000 UNIT/ML 1 ML VIAL SQ SCH ×2 (04:06→12:50)
[2017-03-22 04:15] LABS: Anion Gap 8 mmol/L; Blood Urea Nitrogen 38 mg/dL (7-17); Calcium 8.7 mg/dL (8.4-10.2); Carbon Dioxide 27 mmol/L (22-30); Chloride 110 mmol/L (98-107); Glucose 124 mg/dL (74-99); Magnesium 2.4 mg/dL (1.6-2.3); Non-African American GFR(MDRD) >60 (>60 ml/min/1.73 sqM); Phosphorous 4.6 mg/dL (2.5-4.5); Sodium 145 mmol/L (137-145)
[2017-03-22 04:29] LABS: Add Differential Manual Differential
[2017-03-22 04:32] LABS: Nucleated Red Blood Cells 2 /100 WBC (0-0); Total Cells Counted 200
[2017-03-22 04:33] LABS: Manual Review Performed; Target Cells Present; WBC 7.7 k/uL (3.8-10.6)
[2017-03-22 04:34] LABS: Polychromasia Present
[2017-03-22] MEDS: OFLOXACIN 0.3% OPHTH DROPS 5 ML BOTTLE RIGHT EYE SCH ×3 (06:37→17:32)
[2017-03-22] MEDS: prednisoLONE ACETATE 1% OPHTH DROPS 1 ML BTL RIGHT EYE SCH ×3 (06:37→17:32)
[2017-03-22 07:52] LABS: Glucose,Whole Blood 185 mg/dL (75-99)
--- NOTE | 2017-03-22 08:06 | P.PN ---
Subjective Principal diagnosis: Bicuspid aortic valve with critical aortic stenosis, aortic insufficiency. CAD. Diabetes mellitus. Hypertension. History of TIAs, neuropathy, pericarditis, scoliosis, brain concussion. History of paroxysmal atrial fibrillation POD #18 elective aortic valve replacement with #25 mm magna ease bioprosthetic aortic valve, a clip ligation into left atrial appendage with a #35 mm AtriClip and intraoperative transesophageal echocardiogram. Postoperative acute blood loss anemia, a potential expected outcome of surgery. POD #18 reexploration of the chest, evacuation of clot, control of bleed. Postoperative hypoxic respiratory failure requiring prolonged mechanical ventilation, a potential expected outcome of surgery. POD #16 placement of right pleural chest tube for pleural effusion Postoperative hypovolemic shock, inherent to the surgery Postoperative paroxysmal atrial fibrillation, and expected outcome of surgery POD #10 dual-chamber pacemaker insertion, transvenous under fluoroscopic vision for sick sinus syndrome versus asystole, inherent to aortic valve surgery. POD #10 placement of left pleural chest tube for left pneumothorax as a result of pacemaker placement, inherent to the surgery. Sputum culture positive for Klebsiella, antibiotics per pulmonology. Patient is currently sitting up in bed in no acute distress. Awake and alert and following commands. Passed bedside swallow Wednesday, patient tolerating dysphagia 1 diet. Objective - Vital Signs Vital signs: Vital Signs Temp 98.5 F 03/22/17 04:00 Pulse 82 03/22/17 07:00 Resp 20 03/22/17 07:00 BP 137/79 03/22/17 07:00 Pulse Ox 95 03/22/17 07:00 Intake & Output 03/21/17 03/22/17 03/22/17 18:59 06:59 18:59 Intake Total 1340 1420 60 Output Total 0 945 85 Balance -710 475 -25 Weight 98.5 kg 85.1 kg Intake: IV 60 200 D5W 10 Magnesium Sulfate-D5w Pmx 200 1 gm In Dextrose/Water 1 100ml.bag @ 100 mls/hr IVPB Q1H [facility] Rx#: [id number] cefTRIAXone 1,000 mg In 50 Sodium Chloride 0.9% 50 ml @ 100 mls/hr IVPB Q24HR [facility] Rx#:[id number] Oral 340 600 Tube Feeding 480 420 60 Other 460 200 Output: Urine 2049 945 85 Other: Voiding Method Indwelling Catheter Indwelling Catheter # Bowel Movements 1 ABP, PAP, CO, CI - Last Documented Arterial Blood Pressure 130/48 Pulmonary Artery Pressure 43/32 Cardiac Output 3.9 Cardiac Index 2.3 - Constitutional General appearance: Present: cooperative, no acute distress, obese - Respiratory Details: Lungs sounds diminished bilaterally with coarse breath sounds in the bases. Respirations even, nonlabored. Currently on 4 L nasal cannula with oxygen saturation 94%. Only able to achieve 250 mL on her incentive spirometry. Effective cough. - Cardiovascular Details: Currently ventricular paced with underlying atrial fibrillation on telemetry. Sternum stable. Lower extremity edema and left arm edema present but decreasing. Left brachial PICC line remains. Heart hugger, teds, SCDs present. Palpable pulses bilaterally. - Gastrointestinal Gastrointestinal Comment(s): Abdomen soft, nontender, nondistended. Active bowel sounds 4 quadrants. Tolerating Nepro tube feedings at 30 mL/h through Dobbhoff as well as dysphagia 1 diet. - Genitourinary Genitourinary Comment(s): Cuellar present draining clear, yellow urine. Excellent diuresis after Lasix given yesterday. Output overnight 50-85 mL per hour. - Integumentary Integumentary Comment(s): Anterior chest incision well approximated with Dermabond dressing. - Musculoskeletal Musculoskeletal Comment(s): Still has generalized weakness but is getting stronger, able to move all 4 extremities. Musculoskeletal: Present: generalized weakness - Psychiatric Psychiatric: Present: A&O x's 3, appropriate affect, intact judgment & insight - Allied health notes Allied health notes reviewed: nursing - Labs CBC & Chem 7: 03/22/17 03:50 03/22/17 03:50 Labs: Abnormal Lab Results - Last 24 Hours (Table) 03/21/17 03/21/17 03/21/17 Range/Units 08:10 11:54 16:07 RBC (3.80-5.40) m/uL Hgb (11.4-16.0) gm/dL Hct (34.0-46.0) % MCV (80.0-100.0) fL MCH (25.0-35.0) pg MCHC (31.0-37.0) g/dL RDW (11.5-15.5) % Nucleated RBCs (0-0) /100 WBC Chloride (98-107) mmol/L BUN (7-17) mg/dL Glucose (74-99) mg/dL POC Glucose (mg/dL) 145 H 176 H 114 H (75-99) mg/dL Phosphorus (2.5-4.5) mg/dL Magnesium (1.6-2.3) mg/dL 03/21/17 03/21/17 03/22/17 Range/Units 20:10 22:58 03:49 RBC (3.80-5.40) m/uL Hgb (11.4-16.0) gm/dL Hct (34.0-46.0) % MCV (80.0-100.0) fL MCH (25.0-35.0) pg MCHC (31.0-37.0) g/dL RDW (11.5-15.5) % Nucleated RBCs (0-0) /100 WBC Chloride (98-107) mmol/L BUN (7-17) mg/dL Glucose (74-99) mg/dL POC Glucose (mg/dL) 179 H 201 H 136 H (75-99) mg/dL Phosphorus (2.5-4.5) mg/dL Magnesium (1.6-2.3) mg/dL 03/22/17 03/22/17 03/22/17 Range/Units 03:50 03:50 07:50 RBC 3.63 L (3.80-5.40) m/uL Hgb 8.6 L (11.4-16.0) gm/dL Hct 29.0 L (34.0-46.0) % MCV 79.9 L (80.0-100.0) fL MCH 23.6 L (25.0-35.0) pg MCHC 29.5 L (31.0-37.0) g/dL RDW 23.5 H (11.5-15.5) % Nucleated RBCs 2 H (0-0) /100 WBC Chloride 110 H (98-107) mmol/L BUN 38 H (7-17) mg/dL Glucose 124 H (74-99) mg/dL POC Glucose (mg/dL) 185 H (75-99) mg/dL Phosphorus 4.6 H (2.5-4.5) mg/dL Magnesium 2.4 H (1.6-2.3) mg/dL - Imaging and Cardiology Chest x-ray: image reviewed Assessment and Plan (1) History of TIA (transient ischemic attack) Status: Acute (2) Hyperlipidemia Status: Acute (3) Osteoarthritis Status: Acute (4) Acute blood loss as cause of postoperative anemia Status: Acute (5) Paroxysmal atrial fibrillation Status: Acute (6) Status post aortic valve replacement Status: Acute (7) Bicuspid aortic valve Status: Acute (8) Diabetes mellitus, insulin dependent (IDDM), controlled Status: Acute (9) Hypertension Status: Acute (10) Severe aortic stenosis Status: Acute Plan: 1. Continue aspirin, Plavix, beta daysi, JENNIFER inhibitor, statin. Will maximize beta daysi therapy as able. 2. Continue amiodarone for A. fib prophylaxis. Decrease dose to 200 mg by mouth twice daily today. Will consider anticoagulation at discharge, will hold off for now, patient did have left atrial appendage ligated. 3. Wean O2 as tolerated. Encourage incentive spirometry use. Sputum culture positive for Klebsiella, continue ceftriaxone per pulmonary services. 4. Speech therapy to re-evaluate swallowing today. Passed bedside swallow. Diet initiated. Tube feeding to continue to meet caloric needs. 5. Increase activity as tolerated. Physical and occupational therapy following. 6. Continue Cuellar for strict accurate intake and output. 7. Monitor daily labs, chest x-rays. 8. GI/DVT prophylaxis. 9. Insulin management per primary service. Basal insulin added over the weekend. 10. More recommendations as patient progresses. Referrals sent by social work faculty member for subacute rehab, discharge planning in progress. Time with Patient: Greater than 30
[2017-03-22] MEDS: AMIODARONE 200 MG TAB PO SCH (08:11)
[2017-03-22] MEDS: METOPROLOL TARTRATE 50 MG TAB PO SCH (08:11)
[2017-03-22] MEDS: CLOPIDOGREL 75 MG TAB PO SCH (08:11)
[2017-03-22] MEDS: PANTOPRAZOLE 40 MG TABLET PO SCH (08:11)
[2017-03-22] MEDS: ASPIRIN 325 MG TAB PO SCH (08:11)
[2017-03-22] MEDS: LISINOPRIL 10 MG TAB PO SCH (08:11)
[2017-03-22] MEDS: CALCIUM CARB-VIT D 500MG-200UN 1 EACH TAB PO SCH (08:12)
[2017-03-22] MEDS: NYSTATIN 100,000 UNIT/ML SUSP 500,000 UNIT/5 ML CUP PO SCH ×4 (08:12→23:30)
--- NOTE | 2017-03-22 08:22 | XR ---
EXAMINATION TYPE: XR chest 1V portable DATE OF EXAM: 03/22/2017 COMPARISON: 03/21/2017 INDICATION: Post cardiac surgery, previous abnormal chest TECHNIQUE: Single frontal view of the chest is obtained. FINDINGS: The heart size is enlarged. The pulmonary vasculature is prominent. There is diffuse increased lung markings. Consider volume overload and pulmonary edema within the dif ferential. Small right pleural effusion may be diminished. Sternotomy wires are present from previous cardiac valve surgery. IMPRESSION: 1. Correlate for mild pulmonary edema.
--- NOTE | 2017-03-22 08:32 | P.PN ---
Subjective Principal diagnosis: Postop day #3 for aortic valve repair. The patient is here postop day #11 for aortic stenosis. The patient is actually eating now. She is now on basal protocol for insulin. No significant new complaints. She seems much more lucid than even 3 days ago. Otherwise, she remains on sliding scale. Objective - Vital Signs Vital signs: Vital Signs Temp 97.8 F 03/22/17 08:00 Pulse 90 03/22/17 08:00 Resp 24 03/22/17 08:00 BP 156/80 03/22/17 08:00 Pulse Ox 94 L 03/22/17 08:00 Intake & Output 03/21/17 03/22/17 03/22/17 18:59 06:59 18:59 Intake Total 1340 1420 220 Output Total 2050 945 125 Balance -710 475 95 Weight 98.5 kg 85.1 kg Intake: IV 60 200 D5W 10 Magnesium Sulfate-D5w Pmx 200 1 gm In Dextrose/Water 1 100ml.bag @ 100 mls/hr IVPB Q1H [facility] Rx#: [id number] cefTRIAXone 1,000 mg In 50 Sodium Chloride 0.9% 50 ml @ 100 mls/hr IVPB Q24HR [facility] Rx#:[id number] Oral 340 600 100 Tube Feeding 480 420 120 Other 460 200 Output: Urine 0 945 125 Other: Voiding Method Indwelling Catheter Indwelling Catheter # Bowel Movements 1 ABP, PAP, CO, CI - Last Documented Arterial Blood Pressure 130/48 Pulmonary Artery Pressure 43/32 Cardiac Output 3.9 Cardiac Index 2.3 - Constitutional General appearance: Present: average body habitus - EENT Eyes: Absent: abnormal pupil - Respiratory Respiratory: bilateral: diminished - Cardiovascular Rhythm: irregularly irregular - Gastrointestinal General gastrointestinal: Present: soft. Absent: tenderness - Labs CBC & Chem 7: 03/22/17 03:50 03/22/17 03:50 Labs: Abnormal Lab Results - Last 24 Hours (Table) 03/21/17 03/21/17 03/21/17 Range/Units 11:54 16:07 20:10 RBC (3.80-5.40) m/uL Hgb (11.4-16.0) gm/dL Hct (34.0-46.0) % MCV (80.0-100.0) fL MCH (25.0-35.0) pg MCHC (31.0-37.0) g/dL RDW (11.5-15.5) % Nucleated RBCs (0-0) /100 WBC Chloride (98-107) mmol/L BUN (7-17) mg/dL Glucose (74-99) mg/dL POC Glucose (mg/dL) 176 H 114 H 179 H (75-99) mg/dL Phosphorus (2.5-4.5) mg/dL Magnesium (1.6-2.3) mg/dL 03/21/17 03/22/17 03/22/17 Range/Units 22:58 03:49 03:50 RBC 3.63 L (3.80-5.40) m/uL Hgb 8.6 L (11.4-16.0) gm/dL Hct 29.0 L (34.0-46.0) % MCV 79.9 L (80.0-100.0) fL MCH 23.6 L (25.0-35.0) pg MCHC 29.5 L (31.0-37.0) g/dL RDW 23.5 H (11.5-15.5) % Nucleated RBCs 2 H (0-0) /100 WBC Chloride (98-107) mmol/L BUN (7-17) mg/dL Glucose (74-99) mg/dL POC Glucose (mg/dL) 201 H 136 H (75-99) mg/dL Phosphorus (2.5-4.5) mg/dL Magnesium (1.6-2.3) mg/dL 03/22/17 03/22/17 Range/Units 03:50 07:50 RBC (3.80-5.40) m/uL Hgb (11.4-16.0) gm/dL Hct (34.0-46.0) % MCV (80.0-100.0) fL MCH (25.0-35.0) pg MCHC (31.0-37.0) g/dL RDW (11.5-15.5) % Nucleated RBCs (0-0) /100 WBC Chloride 110 H (98-107) mmol/L BUN 38 H (7-17) mg/dL Glucose 124 H (74-99) mg/dL POC Glucose (mg/dL) 185 H (75-99) mg/dL Phosphorus 4.6 H (2.5-4.5) mg/dL Magnesium 2.4 H (1.6-2.3) mg/dL Assessment and Plan (1) Status post aortic valve replacement Status: Acute (2) Bicuspid aortic valve Status: Acute (3) Diabetes mellitus, insulin dependent (IDDM), controlled Status: Acute (4) Hypertension Status: Acute Plan: Now that she is slowly improving, continue current regimen or treatment. We'll continue to follow. Check CBC and CMP in a.m.
[2017-03-22] MEDS ORDERED: METOPROLOL TARTRATE 25 MG TAB PO STA (08:33)
--- NOTE | 2017-03-22 09:23 | P.PN ---
Subjective Progress note dated 03/22/2017 This is a 76-year-old female was admitted way back on March 04. She status post aortic valve replacement for bicuspid aortic valve. The surgery was done that same day. She apparently had some significant mediastinal bleeding was taken back to the operating room on March 04. Subsequent to that because of asystole, the patient had a permanent pacemaker placed on March 12. She was extubated on March 17. Here in the ICU still. On O2 at 4 L. An IV is just KVO/PIVIL. She seems to be doing relatively well. The patient might be able to be transferred out of the ICU today. Chest x-ray shows some very mild fluid overload. Obviously had a very martinez postoperative course. The patient has a Dobbhoff tube in place. Denies any pain. No shortness of breath. Has been seen by cardiothoracic surgery already today. Objective - Vital Signs Vital signs: Vital Signs Temp 97.8 F 03/22/17 08:00 Pulse 79 03/22/17 09:00 Resp 24 03/22/17 09:00 BP 159/73 03/22/17 09:00 Pulse Ox 94 L 03/22/17 09:00 Intake & Output 03/21/17 03/22/17 03/22/17 18:59 06:59 18:59 Intake Total 1340 1420 300 Output Total 2049 945 195 Balance -710 475 105 Weight 98.5 kg 85.1 kg Intake: IV 60 200 50 D5W 10 Magnesium Sulfate-D5w Pmx 200 1 gm In Dextrose/Water 1 100ml.bag @ 100 mls/hr IVPB Q1H [facility] Rx#: [id number] cefTRIAXone 1,000 mg In 50 50 Sodium Chloride 0.9% 50 ml @ 100 mls/hr IVPB Q24HR [facility] Rx#:[id number] Oral 340 600 100 Tube Feeding 480 420 150 Other 460 200 Output: Urine 2049 945 195 Other: Voiding Method Indwelling Catheter Indwelling Catheter Indwelling Catheter # Bowel Movements 1 ABP, PAP, CO, CI - Last Documented Arterial Blood Pressure 130/48 Pulmonary Artery Pressure 43/32 Cardiac Output 3.9 Cardiac Index 2.3 - Exam No acute distress, oriented 3. HEENT examination is grossly unremarkable. Nasal O2 in place. No oral lesions. Neck supple. Full range of motion. No adenopathy or thyromegaly. Cardiovascular examination reveals regular rhythm rate. S1-S2 normal. No murmur. Lungs reveal clear breath sounds. No wheezes rhonchi or crackles. Abdomen soft bowel sounds are heard. Extremities are intact. No cyanosis clubbing or significant edema. Neurologic examination is nonfocal. - Labs CBC & Chem 7: 03/22/17 03:50 03/22/17 03:50 Labs: Abnormal Lab Results - Last 24 Hours (Table) 03/21/17 03/21/17 03/21/17 Range/Units 11:54 16:07 20:10 RBC (3.80-5.40) m/uL Hgb (11.4-16.0) gm/dL Hct (34.0-46.0) % MCV (80.0-100.0) fL MCH (25.0-35.0) pg MCHC (31.0-37.0) g/dL RDW (11.5-15.5) % Nucleated RBCs (0-0) /100 WBC Chloride (98-107) mmol/L BUN (7-17) mg/dL Glucose (74-99) mg/dL POC Glucose (mg/dL) 176 H 114 H 179 H (75-99) mg/dL Phosphorus (2.5-4.5) mg/dL Magnesium (1.6-2.3) mg/dL 03/21/17 03/22/17 03/22/17 Range/Units 22:58 03:49 03:50 RBC 3.63 L (3.80-5.40) m/uL Hgb 8.6 L (11.4-16.0) gm/dL Hct 29.0 L (34.0-46.0) % MCV 79.9 L (80.0-100.0) fL MCH 23.6 L (25.0-35.0) pg MCHC 29.5 L (31.0-37.0) g/dL RDW 23.5 H (11.5-15.5) % Nucleated RBCs 2 H (0-0) /100 WBC Chloride (98-107) mmol/L BUN (7-17) mg/dL Glucose (74-99) mg/dL POC Glucose (mg/dL) 201 H 136 H (75-99) mg/dL Phosphorus (2.5-4.5) mg/dL Magnesium (1.6-2.3) mg/dL 03/22/17 03/22/17 Range/Units 03:50 07:50 RBC (3.80-5.40) m/uL Hgb (11.4-16.0) gm/dL Hct (34.0-46.0) % MCV (80.0-100.0) fL MCH (25.0-35.0) pg MCHC (31.0-37.0) g/dL RDW (11.5-15.5) % Nucleated RBCs (0-0) /100 WBC Chloride 110 H (98-107) mmol/L BUN 38 H (7-17) mg/dL Glucose 124 H (74-99) mg/dL POC Glucose (mg/dL) 185 H (75-99) mg/dL Phosphorus 4.6 H (2.5-4.5) mg/dL Magnesium 2.4 H (1.6-2.3) mg/dL Assessment and Plan (1) Status post cardiac pacemaker procedure Status: Acute (2) Respiratory failure Status: Acute (3) Asthma Status: Acute (4) Hypernatremia Status: Acute (5) Acute blood loss as cause of postoperative anemia Status: Acute (6) Hyperlipidemia Status: Acute (7) Paroxysmal atrial fibrillation Status: Acute (8) Pneumothorax, left Status: Acute (9) Status post aortic valve replacement Status: Acute (10) Bicuspid aortic valve Status: Acute (11) Diabetes mellitus, insulin dependent (IDDM), controlled Status: Acute (12) Hypertension Status: Acute (13) Severe aortic stenosis Status: Acute Plan: Plan dated 03/22/2017 The patient's doing well. Has been seen by cardiothoracic surgery. May be able to leave the unit today. The patient just on O2. Not receiving any IV fluids. I review the labs x-rays and medications. No additional recommendations are made. Prognosis given her very martinez postoperative course characterized by return to the OR for mediastinal bleeding and pacemaker insertion as well as a left-sided pneumothorax, have obviously slowed the patient's recovery but the patient seems to have recovered from those issues. We'll continue to follow. Time with Patient: Greater than 30
--- NOTE | 2017-03-22 11:11 | P.PN ---
Subjective Patient is doing well and she denies any chest discomfort she looks comfortable no shortness of breath no dizziness or lightheadedness she has a dual chamber pacemaker which is functioning appropriately she is AV sequential paced at this time. Her vitals are as follows heart rate 79 beats a minute afebrile 97.8 blood pressure 142/73 mmHg heart sounds soft systolic murmur no S3 gallop breath sounds are reduced bilaterally abdomen is soft nontender extremities are warm no edema Impression Valvular heart disease status post aortic valve replacement Postoperative complete heart block status post dual-chamber pacemaker Respiratory failure prolonged intubation post procedure and now extubated and doing well Plan Continue current medications of ICU care and patient may transfer out to the telemetry unit Objective - Vital Signs Vital signs: Vital Signs Temp 97.8 F 03/22/17 08:00 Pulse 79 03/22/17 11:00 Resp 27 H 03/22/17 11:00 BP 142/73 03/22/17 11:00 Pulse Ox 96 03/22/17 11:00 Intake & Output 03/21/17 03/22/17 03/22/17 18:59 06:59 18:59 Intake Total 1340 1420 400 Output Total 2050 945 275 Balance -710 475 125 Weight 98.5 kg 85.1 kg Intake: IV 60 200 50 D5W 10 Magnesium Sulfate-D5w Pmx 200 1 gm In Dextrose/Water 1 100ml.bag @ 100 mls/hr IVPB Q1H [facility] Rx#: [id number] cefTRIAXone 1,000 mg In 50 50 Sodium Chloride 0.9% 50 ml @ 100 mls/hr IVPB Q24HR [facility] Rx#:[id number] Oral 340 600 200 Tube Feeding 480 420 150 Other 460 200 0 Output: Urine 0 945 275 Other: Voiding Method Indwelling Catheter Indwelling Catheter Indwelling Catheter # Bowel Movements 1 ABP, PAP, CO, CI - Last Documented Arterial Blood Pressure 130/48 Pulmonary Artery Pressure 43/32 Cardiac Output 3.9 Cardiac Index 2.3 - Labs CBC & Chem 7: 03/22/17 03:50 03/22/17 03:50 Labs: Abnormal Lab Results - Last 24 Hours (Table) 03/21/17 03/21/17 03/21/17 Range/Units 11:54 16:07 20:10 RBC (3.80-5.40) m/uL Hgb (11.4-16.0) gm/dL Hct (34.0-46.0) % MCV (80.0-100.0) fL MCH (25.0-35.0) pg MCHC (31.0-37.0) g/dL RDW (11.5-15.5) % Nucleated RBCs (0-0) /100 WBC Chloride (98-107) mmol/L BUN (7-17) mg/dL Glucose (74-99) mg/dL POC Glucose (mg/dL) 176 H 114 H 179 H (75-99) mg/dL Phosphorus (2.5-4.5) mg/dL Magnesium (1.6-2.3) mg/dL 03/21/17 03/22/17 03/22/17 Range/Units 22:58 03:49 03:50 RBC 3.63 L (3.80-5.40) m/uL Hgb 8.6 L (11.4-16.0) gm/dL Hct 29.0 L (34.0-46.0) % MCV 79.9 L (80.0-100.0) fL MCH 23.6 L (25.0-35.0) pg MCHC 29.5 L (31.0-37.0) g/dL RDW 23.5 H (11.5-15.5) % Nucleated RBCs 2 H (0-0) /100 WBC Chloride (98-107) mmol/L BUN (7-17) mg/dL Glucose (74-99) mg/dL POC Glucose (mg/dL) 201 H 136 H (75-99) mg/dL Phosphorus (2.5-4.5) mg/dL Magnesium (1.6-2.3) mg/dL 03/22/17 03/22/17 Range/Units 03:50 07:50 RBC (3.80-5.40) m/uL Hgb (11.4-16.0) gm/dL Hct (34.0-46.0) % MCV (80.0-100.0) fL MCH (25.0-35.0) pg MCHC (31.0-37.0) g/dL RDW (11.5-15.5) % Nucleated RBCs (0-0) /100 WBC Chloride 110 H (98-107) mmol/L BUN 38 H (7-17) mg/dL Glucose 124 H (74-99) mg/dL POC Glucose (mg/dL) 185 H (75-99) mg/dL Phosphorus 4.6 H (2.5-4.5) mg/dL Magnesium 2.4 H (1.6-2.3) mg/dL
[2017-03-22 12:31] LABS: Glucose,Whole Blood 165 mg/dL (75-99)
[2017-03-22] MEDS: CYANOCOBALAMIN 500 MCG TAB PO SCH (12:48)
[2017-03-22 17:30] LABS: Glucose,Whole Blood 131 mg/dL (75-99)
[2017-03-22] MEDS: hydrALAZINE HCL 20 MG/ML 1 ML VIAL IVP PRN (18:46)
[2017-03-22] MEDS: HYDROcodone/APAP 5-325MG 1 EACH TAB PO PRN (18:46)
[2017-03-22 20:33] LABS: Glucose,Whole Blood 252 mg/dL (75-99)
[2017-03-23] MEDS: ATORVASTATIN 40 MG TAB PO SCH ×2 (00:01→21:45)
[2017-03-23] MEDS: LISINOPRIL 10 MG TAB PO SCH ×2 (00:02→08:48)
[2017-03-23] MEDS: AMIODARONE 200 MG TAB PO SCH ×3 (00:02→21:45)
[2017-03-23] MEDS: HEPARIN SODIUM,PORCINE 5,000 UNIT/ML 1 ML VIAL SQ SCH ×4 (00:02→21:45)
[2017-03-23] MEDS: METOPROLOL TARTRATE 25 MG TAB PO SCH ×3 (00:03→21:46)
[2017-03-23] MEDS: SENNOSIDES-DOCUSATE SODIUM 1 EACH TAB PO SCH ×2 (00:04→21:47)
[2017-03-23 06:18] LABS: Anisocytosis Moderate; CH 23.2; CHCM 29.8; HCT 29.3 % (34.0-46.0); HDW 3.94; HGB 8.9 gm/dL (11.4-16.0); Hypochromasia Marked; MCH 23.9 pg (25.0-35.0); MCHC 30.5 g/dL (31.0-37.0); MCV 78.5 fL (80.0-100.0); Mean Platelet Volume 7.6; Microcytosis Moderate; Poikilocytosis Slight; RBC 3.73 m/uL (3.80-5.40); RDW 22.6 % (11.5-15.5); WBC 8.5 k/uL (3.8-10.6)
[2017-03-23 06:36] LABS: ALT 54 U/L (9-52); AST 36 U/L (14-36); Alkaline Phosphatase 205 U/L (38-126); Anion Gap 8 mmol/L; Blood Urea Nitrogen 34 mg/dL (7-17); Calcium 8.7 mg/dL (8.4-10.2); Carbon Dioxide 25 mmol/L (22-30); Chloride 108 mmol/L (98-107); Glucose 221 mg/dL (74-99); Non-African American GFR(MDRD) >60 (>60 ml/min/1.73 sqM); Potassium 3.9 mmol/L (3.5-5.1); Sodium 141 mmol/L (137-145); Total Bilirubin 0.8 mg/dL (0.2-1.3); Total Protein 5.6 g/dL (6.3-8.2)
[2017-03-23 06:37] LABS: Glucose,Whole Blood 211 mg/dL (75-99)
--- NOTE | 2017-03-23 07:19 | XR ---
EXAMINATION TYPE: XR chest 1V portable DATE OF EXAM: 03/23/2017 HISTORY: Shortness of breath. COMPARISON: March 22, 2017 TECHNIQUE: Single view of the chest is submitted. FINDINGS: Demonstrated are scattered senescent parenchymal change. Patchy infiltrates persist about the perihilar and basilar regions as well as small effusions. Overal l appearance is somewhat improved. The heart is stable. Changes of median sternotomy. Cardiac valvular prosthesis in place. Pacer device unchanged. Hilar and mediastinal structures are within normal limits. Degenerative changes are seen of the dorsal spine. IMPRESSION: 1. Patchy infiltrates persist about the perihilar and basilar regions as well as small effusions. Ov erall appearance is somewhat improved.
[2017-03-23] MEDS: prednisoLONE ACETATE 1% OPHTH DROPS 1 ML BTL RIGHT EYE SCH ×5 (07:22→21:48)
[2017-03-23] MEDS: INSULIN LISPRO (humaLOG) 300 UNIT/3 ML VIAL SQ SCH ×6 (07:23→21:45)
[2017-03-23] MEDS: OFLOXACIN 0.3% OPHTH DROPS 5 ML BOTTLE RIGHT EYE SCH ×5 (07:23→21:48)
[2017-03-23] MEDS: PANTOPRAZOLE 40 MG TABLET PO SCH (07:24)
--- NOTE | 2017-03-23 08:37 | P.PN ---
Subjective Principal diagnosis: Postop day #3 for aortic valve repair. This continue presently 76-year-old diabetic white female who was admitted for stenosis and is had somewhat of a martinez course but is slowly improving. She is now on selective. She seems to be tolerating diet better. She does have an insulin pump and is now on basal protocol Objective - Vital Signs Vital signs: Vital Signs Temp 97.1 F L 03/23/17 04:00 Pulse 70 03/23/17 04:00 Resp 18 03/23/17 04:00 BP 168/73 03/23/17 04:00 Pulse Ox 93 L 03/23/17 04:00 Intake & Output 03/22/17 03/23/17 03/23/17 18:59 06:59 18:59 Intake Total 900 960 240 Output Total 640 700 Balance 260 260 240 Weight 85.1 kg Intake: IV 50 cefTRIAXone 1,000 mg In 50 Sodium Chloride 0.9% 50 ml @ 100 mls/hr IVPB Q24HR [facility] Rx#:[id number] Oral 700 240 Tube Feeding 150 960 Other 0 Output: Urine 640 700 Uretheral (Cuellar) 350 Other: Voiding Method Indwelling Catheter Indwelling Catheter # Voids 0 ABP, PAP, CO, CI - Last Documented Arterial Blood Pressure 130/48 Pulmonary Artery Pressure 43/32 Cardiac Output 3.9 Cardiac Index 2.3 - Constitutional General appearance: Present: average body habitus - EENT Eyes: Absent: abnormal pupil - Respiratory Respiratory: bilateral: diminished - Cardiovascular Heart sounds: normal: S1, S2 Abnormal Heart Sounds: Absent: S3 Gallop - Gastrointestinal General gastrointestinal: Present: soft. Absent: tenderness - Labs CBC & Chem 7: 03/23/17 05:54 03/23/17 05:46 Labs: Abnormal Lab Results - Last 24 Hours (Table) 03/22/17 03/22/17 03/22/17 Range/Units 12:29 17:26 20:32 RBC (3.80-5.40) m/uL Hgb (11.4-16.0) gm/dL Hct (34.0-46.0) % MCV (80.0-100.0) fL MCH (25.0-35.0) pg MCHC (31.0-37.0) g/dL RDW (11.5-15.5) % Chloride (98-107) mmol/L BUN (7-17) mg/dL Glucose (74-99) mg/dL POC Glucose (mg/dL) 165 H 131 H 252 H (75-99) mg/dL ALT (9-52) U/L Alkaline Phosphatase (38-126) U/L Total Protein (6.3-8.2) g/dL Albumin (3.5-5.0) g/dL 03/23/17 03/23/17 03/23/17 Range/Units 05:46 05:54 06:36 RBC 3.73 L (3.80-5.40) m/uL Hgb 8.9 L (11.4-16.0) gm/dL Hct 29.3 L (34.0-46.0) % MCV 78.5 L (80.0-100.0) fL MCH 23.9 L (25.0-35.0) pg MCHC 30.5 L (31.0-37.0) g/dL RDW 22.6 H (11.5-15.5) % Chloride 108 H (98-107) mmol/L BUN 34 H (7-17) mg/dL Glucose 221 H (74-99) mg/dL POC Glucose (mg/dL) 211 H (75-99) mg/dL ALT 54 H (9-52) U/L Alkaline Phosphatase 205 H (38-126) U/L Total Protein 5.6 L (6.3-8.2) g/dL Albumin 2.7 L (3.5-5.0) g/dL Assessment and Plan (1) Status post aortic valve replacement Status: Acute (2) Bicuspid aortic valve Status: Acute (3) Diabetes mellitus, insulin dependent (IDDM), controlled Status: Acute (4) Hypertension Status: Acute Plan: Slow improvement is noted. Follow electrolytes. We'll continue to follow with consultants. See orders otherwise.
[2017-03-23] MEDS: CALCIUM CARB-VIT D 500MG-200UN 1 EACH TAB PO SCH (08:47)
[2017-03-23] MEDS: NYSTATIN 100,000 UNIT/ML SUSP 500,000 UNIT/5 ML CUP PO SCH ×4 (08:47→21:47)
[2017-03-23] MEDS: CLOPIDOGREL 75 MG TAB PO SCH (08:48)
[2017-03-23] MEDS: ASPIRIN 325 MG TAB PO SCH (08:48)
--- NOTE | 2017-03-23 09:25 | P.PN ---
Subjective Principal diagnosis: Critical aortic stenosis with bicuspid valve and aortic insufficiency, congestive heart failure, CVA/TIA, diabetes mellitus type 2, hyperlipidemia, hypertension, osteoarthritis, coronary artery disease, preoperative paroxysmal atrial fibrillation, neuropathy, pericarditis, scoliosis and history of brain concussion. POD #19, elective aortic valve replacement with a 25 mm Magna-Ease bioprosthetic aortic valve, a clip ligation into the left atrial appendage with a #35 mm Atriclip and intraoperative transesophageal echocardiogram. POD #19, emergent evacuation of clots, chest exploration and control of bleeding. Acute postoperative blood loss anemia, and expected outcome of surgery. Postoperative hypoxic respiratory failure requiring prolonged mechanical ventilation, a potential expected outcome of surgery. POD #17 placement of right pleural chest tube for pleural effusion. Postoperative hypovolemic shock, inherent to the surgery Postoperative paroxysmal atrial fibrillation, and expected outcome of surgery. POD #11 dual-chamber pacemaker insertion transvenous under fluoroscopic vision, placed for cardiac rhythm consistent with sick sinus syndrome. POD #11 placement of left pleural chest tube by Dr. Soler for a left pneumothorax. Sputum culture positive for Klebsiella oxytoca on 03/11/2017, currently on antibiotic treatment. Patient is currently sitting up in her bed, no acute distress. She pulled her Dobbhoff tube out this a.m. She was transferred from the intensive care unit to the [facility] yesterday. She is tolerating an oral diet. She reports a complaint of tremors to her extremities this morning. Objective - Vital Signs Vital signs: Vital Signs Temp 97.1 F L 03/23/17 04:00 Pulse 70 03/23/17 04:00 Resp 18 03/23/17 04:00 BP 168/73 03/23/17 04:00 Pulse Ox 93 L 03/23/17 04:00 Intake & Output 03/22/17 03/23/17 03/23/17 18:59 06:59 18:59 Intake Total 900 960 240 Output Total 640 700 Balance 260 260 240 Weight 85.1 kg Intake: IV 50 cefTRIAXone 1,000 mg In 50 Sodium Chloride 0.9% 50 ml @ 100 mls/hr IVPB Q24HR [facility] Rx#:[id number] Oral 700 240 Tube Feeding 150 960 Other 0 Output: Urine 640 700 Uretheral (Cuellar) 350 Other: Voiding Method Indwelling Catheter Indwelling Catheter # Voids 0 ABP, PAP, CO, CI - Last Documented Arterial Blood Pressure 130/48 Pulmonary Artery Pressure 43/32 Cardiac Output 3.9 Cardiac Index 2.3 - Constitutional General appearance: Present: cooperative, no acute distress, obese - EENT ENT: Present: hearing grossly normal - Neck Details: No JVD present. - Respiratory Details: Essentially clear throughout her upper lobes, few scattered crackles to her bilateral bases. Respirations are symmetrical and unlabored. Oxygen saturations are 94% on 4 L nasal cannula. She is achieving less than 250 mL on her incentive spirometry. Reviewed the importance of using her incentive spirometry every hour while awake with a demonstrated instruction. - Cardiovascular Details: Regular rhythm and rate. S1 and S2 present, negative for S3, gallop or murmur. Remote telemetry showing a DDD paced rhythm at 70. Sternum is stable, heart hugger in place with appropriate use demonstrated. Knee-high CHAVA hose and sequential compression devices in place to bilateral lower extremity. Left brachial PICC line remains intact and patent. +1 to +2 edema to her bilateral lower extremities. - Gastrointestinal Gastrointestinal Comment(s): Abdomen is soft, nontender and nondistended. Active bowel sounds to all 4 abdominal quadrants. Positive bowel movement 2 this a.m. Tolerating an oral diet. - Genitourinary Genitourinary Comment(s): Adequate, clear jonathan urine. Cuellar catheter for accurate I&O. - Integumentary Integumentary Comment(s): Midline sternal incision clean dry and well approximated. No drainage noted. Dermabond dressing in place. 4 x 4 folded gauze dressing in place. Left upper chest pacemaker insertion site incision clean dry and well approximated. No drainage noted. Stage I erythematous area to her left buttocks, protective dressing in place to her sacrum. - Neurologic Neurologic Comment(s): Slight tremor noted to her bilateral upper and lower extremities. - Musculoskeletal Musculoskeletal Comment(s): Moving all 4 extremities appropriately. Musculoskeletal: Present: generalized weakness - Psychiatric Psychiatric: Present: A&O x's 3, appropriate affect, intact judgment & insight - Allied health notes Allied health notes reviewed: nursing - Labs CBC & Chem 7: 03/23/17 05:54 03/23/17 05:46 Labs: Abnormal Lab Results - Last 24 Hours (Table) 08/21/17 08/21/17 08/21/17 Range/Units 12:29 17:26 20:32 RBC (3.80-5.40) m/uL Hgb (11.4-16.0) gm/dL Hct (34.0-46.0) % MCV (80.0-100.0) fL MCH (25.0-35.0) pg MCHC (31.0-37.0) g/dL RDW (11.5-15.5) % Chloride (98-107) mmol/L BUN (7-17) mg/dL Glucose (74-99) mg/dL POC Glucose (mg/dL) 165 H 131 H 252 H (75-99) mg/dL ALT (9-52) U/L Alkaline Phosphatase (38-126) U/L Total Protein (6.3-8.2) g/dL Albumin (3.5-5.0) g/dL 03/23/17 03/23/17 03/23/17 Range/Units 05:46 05:54 06:36 RBC 3.73 L (3.80-5.40) m/uL Hgb 8.9 L (11.4-16.0) gm/dL Hct 29.3 L (34.0-46.0) % MCV 78.5 L (80.0-100.0) fL MCH 23.9 L (25.0-35.0) pg MCHC 30.5 L (31.0-37.0) g/dL RDW 22.6 H (11.5-15.5) % Chloride 108 H (98-107) mmol/L BUN 34 H (7-17) mg/dL Glucose 221 H (74-99) mg/dL POC Glucose (mg/dL) 211 H (75-99) mg/dL ALT 54 H (9-52) U/L Alkaline Phosphatase 205 H (38-126) U/L Total Protein 5.6 L (6.3-8.2) g/dL Albumin 2.7 L (3.5-5.0) g/dL - Imaging and Cardiology Chest x-ray: report reviewed, image reviewed Assessment and Plan (1) Paroxysmal atrial fibrillation Status: Acute (2) Acute blood loss as cause of postoperative anemia Status: Acute (3) Status post aortic valve replacement Status: Acute (4) Bicuspid aortic valve Status: Acute (5) Diabetes mellitus, insulin dependent (IDDM), controlled Status: Acute (6) Hypertension Status: Acute (7) Severe aortic stenosis Status: Acute (8) Pneumothorax, left Status: Acute (9) History of TIA (transient ischemic attack) Status: Acute (10) Hyperlipidemia Status: Acute (11) Osteoarthritis Status: Acute Plan: 1. Continue aspirin, Plavix, statin, metoprolol, and we will increase her lisinopril to 15 mg by mouth twice a day. 2. Continue amiodarone 200 mg by mouth twice a day for atrial fibrillation management. Anticoagulation will be considered at discharge. 3. Pulmonary and ventilator management per Dr. Denney. Wean O2 as tolerated. Encourage use of her incentive spirometry every hour while awake. 4. Monitor daily labs and chest x-ray. 5. DVT and GI prophylaxis in place. 6. Comorbid conditions and diabetic management per primary care management. 7. She was started on ceftriaxone 1000 mg every 24 hours on 03/14/[address] Soler for positive sputum culture Klebsiella oxytoca. 8. Increase activity as tolerated physical therapy and occupational therapy in place. 9. More recommendations as patient progresses. Social work consult in place for subacute rehab placement, discharge planning in place. Time with Patient: Greater than 30
[2017-03-23] MEDS ORDERED: FUROSEMIDE 10 MG/ML 4 ML VIAL IV STA (10:45)
[2017-03-23] MEDS ORDERED: LISINOPRIL 20 MG TAB PO STA (10:45)
[2017-03-23] MEDS: CYANOCOBALAMIN 500 MCG TAB PO SCH (11:21)
[2017-03-23 11:31] LABS: Glucose,Whole Blood 203 mg/dL (75-99)
--- NOTE | 2017-03-23 12:52 | P.PN ---
Subjective Progress note dated 03/22/2017 This is a 76-year-old female was admitted way back on March 04. She status post aortic valve replacement for bicuspid aortic valve. The surgery was done that same day. She apparently had some significant mediastinal bleeding was taken back to the operating room on March 04. Subsequent to that because of asystole, the patient had a permanent pacemaker placed on March 12. She was extubated on March 17. Here in the ICU still. On O2 at 4 L. An IV is just KVO/PIVIL. She seems to be doing relatively well. The patient might be able to be transferred out of the ICU today. Chest x-ray shows some very mild fluid overload. Obviously had a very martinez postoperative course. The patient has a Dobbhoff tube in place. Denies any pain. No shortness of breath. Has been seen by cardiothoracic surgery already today. Progress note dated 03/23/2017 This is a 76-year-old female who was admitted way back on March 04. She status post aortic valve replacement for bicuspid aortic valve. This surgery was done of the same day, March 04. She has significant bleeding at that time she went back to the operating room. The patient has had a very martinez postoperative course [place] by asystole requiring permanent pacemaker insertion on March 12. She was finally extubated on March 17. She's here in the ICU but was transferred out to the floor yesterday. Doing relatively well. Still on O2. Recovering nicely. Apparently pulled her Dobbhoff tube out. No pain. No shortness of breath. No nausea vomiting or diarrhea. Seemed to be finally making some progress. Will likely need to go to some rehab facility. Objective - Vital Signs Vital signs: Vital Signs Temp 97.8 F 03/23/17 12:13 Pulse 75 03/23/17 12:13 Resp 24 03/23/17 12:13 BP 187/82 03/23/17 12:13 Pulse Ox 93 L 03/23/17 12:13 Intake & Output 03/22/17 03/23/17 03/23/17 18:59 06:59 18:59 Intake Total 900 960 240 Output Total 412 818 3986 Balance 260 260 -910 Weight 85.1 kg Intake: IV 50 cefTRIAXone 1,000 mg In 50 Sodium Chloride 0.9% 50 ml @ 100 mls/hr IVPB Q24HR [facility] Rx#:[id number] Oral 700 240 Tube Feeding 150 960 Other 0 Output: Urine 145 667 6351 Uretheral (Cuellar) 350 350 Other: Voiding Method Indwelling Catheter Indwelling Catheter Indwelling Catheter # Voids 0 ABP, PAP, CO, CI - Last Documented Arterial Blood Pressure 130/48 Pulmonary Artery Pressure 43/32 Cardiac Output 3.9 Cardiac Index 2.3 - Exam No acute distress, oriented 3. HEENT examination is grossly unremarkable. Nasal O2 in place. No oral lesions. Neck supple. Full range of motion. No adenopathy or thyromegaly. Cardiovascular examination reveals regular rhythm rate. S1-S2 normal. No murmur. Lungs reveal clear breath sounds. No wheezes rhonchi or crackles. Abdomen soft bowel sounds are heard. Extremities are intact. No cyanosis clubbing or significant edema. Neurologic examination is nonfocal. - Labs CBC & Chem 7: 03/23/17 05:54 03/23/17 05:46 Labs: Abnormal Lab Results - Last 24 Hours (Table) 03/22/17 03/22/17 03/23/17 Range/Units 17:26 20:32 05:46 RBC (3.80-5.40) m/uL Hgb (11.4-16.0) gm/dL Hct (34.0-46.0) % MCV (80.0-100.0) fL MCH (25.0-35.0) pg MCHC (31.0-37.0) g/dL RDW (11.5-15.5) % Chloride 108 H (98-107) mmol/L BUN 34 H (7-17) mg/dL Glucose 221 H (74-99) mg/dL POC Glucose (mg/dL) 131 H 252 H (75-99) mg/dL ALT 54 H (9-52) U/L Alkaline Phosphatase 205 H (38-126) U/L Total Protein 5.6 L (6.3-8.2) g/dL Albumin 2.7 L (3.5-5.0) g/dL 03/23/17 03/23/17 03/23/17 Range/Units 05:54 06:36 11:17 RBC 3.73 L (3.80-5.40) m/uL Hgb 8.9 L (11.4-16.0) gm/dL Hct 29.3 L (34.0-46.0) % MCV 78.5 L (80.0-100.0) fL MCH 23.9 L (25.0-35.0) pg MCHC 30.5 L (31.0-37.0) g/dL RDW 22.6 H (11.5-15.5) % Chloride (98-107) mmol/L BUN (7-17) mg/dL Glucose (74-99) mg/dL POC Glucose (mg/dL) 211 H 203 H (75-99) mg/dL ALT (9-52) U/L Alkaline Phosphatase (38-126) U/L Total Protein (6.3-8.2) g/dL Albumin (3.5-5.0) g/dL Assessment and Plan (1) Status post cardiac pacemaker procedure Status: Acute (2) Respiratory failure Status: Acute (3) Asthma Status: Acute (4) Hypernatremia Status: Acute (5) Acute blood loss as cause of postoperative anemia Status: Acute (6) Hyperlipidemia Status: Acute (7) Paroxysmal atrial fibrillation Status: Acute (8) Pneumothorax, left Status: Acute (9) Status post aortic valve replacement Status: Acute (10) Bicuspid aortic valve Status: Acute (11) Diabetes mellitus, insulin dependent (IDDM), controlled Status: Acute (12) Hypertension Status: Acute (13) Severe aortic stenosis Status: Acute Plan: Plan dated 03/22/2017 The patient's doing well. Has been seen by cardiothoracic surgery. May be able to leave the unit today. The patient just on O2. Not receiving any IV fluids. I review the labs x-rays and medications. No additional recommendations are made. Prognosis given her very martinez postoperative course characterized by return to the OR for mediastinal bleeding and pacemaker insertion as well as a left-sided pneumothorax, have obviously slowed the patient's recovery but the patient seems to have recovered from those issues. We'll continue to follow. Plan dated 03/23/2017 The patient seemed be doing better. Moved out of the ICU yesterday. We'll continue with deep breathing coughing and clearing of secretions. Continue with oxygen therapy and incentive spirometry. No additional recommendations are made. We'll continue to follow closely. Prognosis is guarded. She's had a very martinez postoperative course. Prognosis is guarded as mentioned above. Time with Patient: Less than 30
--- NOTE | 2017-03-23 15:04 | P.PN ---
Subjective Principal diagnosis: Aortic valve replacement This 76-year-old female with history of bicuspid valve and aortic insufficiency , prior TIA, diabetes, hyperlipidemia, hypertension, paroxysmal atrial fibrillation, who underwent elective aortic valve replacement as well as a clip ligation to the left atrial appendage. Subsequent to that initial surgery she also had an emergent evacuation of clots chest exploration and control of bleeding. Patient was seen and examined on the telemetry unit this morning sitting up at bedside, in no apparent distress. Pulled out her Dobbhoff tube this morning. Sputum culture positive for Klebsiella oxytoca on 03/11/2017 she is on antibiotics. Blood pressure high 170s to high 180s systolic. She did have adjustments made to her lisinopril, we will add Norvasc 2.5 mg 1 tablet daily to her medication regime. Objective - Vital Signs Vital signs: Vital Signs Temp 97.8 F 03/23/17 12:13 Pulse 75 03/23/17 12:13 Resp 24 03/23/17 12:13 BP 187/82 03/23/17 12:13 Pulse Ox 93 L 03/23/17 12:13 Intake & Output 03/22/17 03/23/17 03/23/17 18:59 06:59 18:59 Intake Total 900 960 360 Output Total 860 704 3342 Balance 260 260 -790 Weight 85.1 kg 85.1 kg Intake: IV 50 cefTRIAXone 1,000 mg In 50 Sodium Chloride 0.9% 50 ml @ 100 mls/hr IVPB Q24HR [facility] Rx#:[id number] Oral 700 360 Tube Feeding 150 960 Other 0 Output: Urine 890 191 6278 Uretheral (Cuellar) 350 350 Other: Voiding Method Indwelling Catheter Indwelling Catheter Indwelling Catheter # Voids 0 ABP, PAP, CO, CI - Last Documented Arterial Blood Pressure 130/48 Pulmonary Artery Pressure 43/32 Cardiac Output 3.9 Cardiac Index 2.3 - Exam PHYSICAL EXAMINATION: HEENT: Head is atraumatic, normocephalic. Pupils equal, round. Neck is supple. There is no elevated jugular venous pressure. HEART EXAMINATION: Heart S1, S2 normal. No murmur or gallop heard. CHEST EXAMINATION: Lungs are clear to auscultation and precussion. No chest wall tenderness is noted on palpation or with deep breathing. ABDOMEN: Soft, nontender. Bowel sounds are heard. No organomegaly noted. EXTREMITIES: 2+ peripheral pulses with no evidence of peripheral edema and no calf tenderness noted. NEUROLOGIC patient is awake, alert and oriented -3. . - Labs CBC & Chem 7: 03/23/17 05:54 03/23/17 05:46 Labs: Abnormal Lab Results - Last 24 Hours (Table) 03/22/17 03/22/17 03/23/17 Range/Units 17:26 20:32 05:46 RBC (3.80-5.40) m/uL Hgb (11.4-16.0) gm/dL Hct (34.0-46.0) % MCV (80.0-100.0) fL MCH (25.0-35.0) pg MCHC (31.0-37.0) g/dL RDW (11.5-15.5) % Chloride 108 H (98-107) mmol/L BUN 34 H (7-17) mg/dL Glucose 221 H (74-99) mg/dL POC Glucose (mg/dL) 131 H 252 H (75-99) mg/dL ALT 54 H (9-52) U/L Alkaline Phosphatase 205 H (38-126) U/L Total Protein 5.6 L (6.3-8.2) g/dL Albumin 2.7 L (3.5-5.0) g/dL 03/23/17 03/23/17 03/23/17 Range/Units 05:54 06:36 11:17 RBC 3.73 L (3.80-5.40) m/uL Hgb 8.9 L (11.4-16.0) gm/dL Hct 29.3 L (34.0-46.0) % MCV 78.5 L (80.0-100.0) fL MCH 23.9 L (25.0-35.0) pg MCHC 30.5 L (31.0-37.0) g/dL RDW 22.6 H (11.5-15.5) % Chloride (98-107) mmol/L BUN (7-17) mg/dL Glucose (74-99) mg/dL POC Glucose (mg/dL) 211 H 203 H (75-99) mg/dL ALT (9-52) U/L Alkaline Phosphatase (38-126) U/L Total Protein (6.3-8.2) g/dL Albumin (3.5-5.0) g/dL Assessment and Plan Plan: Assessment and Plan (1) Status post cardiac pacemaker procedure Status: Acute (2) Respiratory failure Status: Acute (3) Asthma Status: Acute (4) Hypernatremia Status: Acute (5) Acute blood loss as cause of postoperative anemia Status: Acute (6) Hyperlipidemia Status: Acute (7) Paroxysmal atrial fibrillation Status: Acute (8) Pneumothorax, left Status: Acute (9) Status post aortic valve replacement Status: Acute (10) Bicuspid aortic valve Status: Acute (11) Diabetes mellitus, insulin dependent (IDDM), controlled Status: Acute (12) Hypertension Status: Acute From cardiology's perspective, we will add Norvasc 2.5 mg daily to the patient' s medication regime. Continue other medications. DNP note has been reviewed, I agree with a documented findings and plan of care. Patient was seen and examined.
[2017-03-23 16:21] LABS: Glucose,Whole Blood 218 mg/dL (75-99)
[2017-03-23] MEDS: amLODIPine 2.5 MG TAB PO SCH (17:20)
[2017-03-23 20:38] LABS: Glucose,Whole Blood 119 mg/dL (75-99)
[2017-03-23] MEDS: INSULIN GLARGINE 100 UNIT/ML 10 ML VIAL SQ SCH ×2 (21:46)
[2017-03-24 02:04] LABS: Glucose,Whole Blood 150 mg/dL (75-99)
[2017-03-24 04:49] LABS: Glucose,Whole Blood 134 mg/dL (75-99)
[2017-03-24 05:59] LABS: Glucose,Whole Blood 147 mg/dL (75-99)
[2017-03-24 06:12] LABS: Anisocytosis Moderate; CH 23.4; CHCM 30.8; HCT 29.2 % (34.0-46.0); HDW 4.12; Hypochromasia Marked; MCH 23.5 pg (25.0-35.0); MCHC 30.7 g/dL (31.0-37.0); MCV 76.5 fL (80.0-100.0); Mean Platelet Volume 7.6; Microcytosis Marked; Poikilocytosis Moderate; RBC 3.81 m/uL (3.80-5.40); RDW 22.2 % (11.5-15.5); WBC 8.7 k/uL (3.8-10.6)
[2017-03-24] MEDS: HEPARIN SODIUM,PORCINE 5,000 UNIT/ML 1 ML VIAL SQ SCH ×3 (07:20→22:01)
[2017-03-24] MEDS: OFLOXACIN 0.3% OPHTH DROPS 5 ML BOTTLE RIGHT EYE SCH ×3 (07:20→17:07)
[2017-03-24] MEDS: prednisoLONE ACETATE 1% OPHTH DROPS 1 ML BTL RIGHT EYE SCH ×3 (07:20→17:07)
[2017-03-24] MEDS: ATORVASTATIN 40 MG TAB PO SCH (07:21)
[2017-03-24 07:23] LABS: ALT 58 U/L (9-52); AST 33 U/L (14-36); Alkaline Phosphatase 185 U/L (38-126); Anion Gap 7 mmol/L; Blood Urea Nitrogen 27 mg/dL (7-17); Calcium 8.8 mg/dL (8.4-10.2); Carbon Dioxide 28 mmol/L (22-30); Chloride 106 mmol/L (98-107); Glucose 131 mg/dL (74-99); Non-African American GFR(MDRD) >60 (>60 ml/min/1.73 sqM); Potassium 3.8 mmol/L (3.5-5.1); Sodium 141 mmol/L (137-145); Total Bilirubin 0.8 mg/dL (0.2-1.3); Total Protein 5.8 g/dL (6.3-8.2)
[2017-03-24] MEDS: INSULIN LISPRO (humaLOG) 300 UNIT/3 ML VIAL SQ SCH ×6 (08:11→22:30)
[2017-03-24] MEDS: ASPIRIN 325 MG TAB PO SCH (08:21)
[2017-03-24] MEDS: ERGOCALCIFEROL 50,000 UNIT CAP PO SCH (08:21)
[2017-03-24] MEDS: CLOPIDOGREL 75 MG TAB PO SCH (08:21)
[2017-03-24] MEDS: AMIODARONE 200 MG TAB PO SCH ×2 (08:21→22:01)
[2017-03-24] MEDS: amLODIPine 2.5 MG TAB PO SCH (08:21)
[2017-03-24] MEDS: PANTOPRAZOLE 40 MG TABLET PO SCH (08:21)
[2017-03-24] MEDS: METOPROLOL TARTRATE 25 MG TAB PO SCH ×2 (08:21→22:02)
[2017-03-24] MEDS: CALCIUM CARB-VIT D 500MG-200UN 1 EACH TAB PO SCH (08:21)
[2017-03-24] MEDS: FUROSEMIDE 40 MG TAB PO SCH (08:21)
[2017-03-24] MEDS: NYSTATIN 100,000 UNIT/ML SUSP 500,000 UNIT/5 ML CUP PO SCH ×4 (08:22→22:02)
--- NOTE | 2017-03-24 08:31 | P.PN ---
Subjective Principal diagnosis: Postop day #3 for aortic valve repair. This continue presently 76-year-old diabetic white female who was admitted for stenosis and is had somewhat of a martinez course but is slowly improving. She is now on selective. She seems to be tolerating diet better. She does have an insulin pump and is now on basal protocol Objective - Vital Signs Vital signs: Vital Signs Temp 97.5 F L 03/24/17 04:00 Pulse 70 03/24/17 04:00 Resp 20 03/24/17 04:00 BP 158/68 03/24/17 04:00 Pulse Ox 91 L 03/24/17 04:00 Intake & Output 03/23/17 03/24/17 03/24/17 18:59 06:59 18:59 Intake Total 480 120 Output Total 1500 2200 Balance -1020 -2200 120 Weight 85.1 kg 85.1 kg Intake: Oral 480 120 Output: Urine 1500 2200 Uretheral (Cuellar) 700 700 Other: Voiding Method Indwelling Catheter Indwelling Catheter # Voids 0 ABP, PAP, CO, CI - Last Documented Arterial Blood Pressure 130/48 Pulmonary Artery Pressure 43/32 Cardiac Output 3.9 Cardiac Index 2.3 - Constitutional General appearance: Present: average body habitus - Respiratory Respiratory: bilateral: diminished - Cardiovascular Rhythm: regular Heart sounds: normal: S1, S2 - Gastrointestinal General gastrointestinal: Present: soft. Absent: tenderness - Labs CBC & Chem 7: 03/24/17 05:36 03/24/17 05:33 Labs: Abnormal Lab Results - Last 24 Hours (Table) 03/23/17 03/23/17 03/23/17 Range/Units 11:17 16:16 20:37 Hgb (11.4-16.0) gm/dL Hct (34.0-46.0) % MCV (80.0-100.0) fL MCH (25.0-35.0) pg MCHC (31.0-37.0) g/dL RDW (11.5-15.5) % BUN (7-17) mg/dL Glucose (74-99) mg/dL POC Glucose (mg/dL) 203 H 218 H 119 H (75-99) mg/dL ALT (9-52) U/L Alkaline Phosphatase (38-126) U/L Total Protein (6.3-8.2) g/dL Albumin (3.5-5.0) g/dL 03/24/17 03/24/17 03/24/17 Range/Units 02:03 04:48 05:33 Hgb (11.4-16.0) gm/dL Hct (34.0-46.0) % MCV (80.0-100.0) fL MCH (25.0-35.0) pg MCHC (31.0-37.0) g/dL RDW (11.5-15.5) % BUN 27 H (7-17) mg/dL Glucose 131 H (74-99) mg/dL POC Glucose (mg/dL) 150 H 134 H (75-99) mg/dL ALT 58 H (9-52) U/L Alkaline Phosphatase 185 H (38-126) U/L Total Protein 5.8 L (6.3-8.2) g/dL Albumin 2.9 L (3.5-5.0) g/dL 03/24/17 03/24/17 Range/Units 05:36 05:57 Hgb 9.0 L (11.4-16.0) gm/dL Hct 29.2 L (34.0-46.0) % MCV 76.5 L (80.0-100.0) fL MCH 23.5 L (25.0-35.0) pg MCHC 30.7 L (31.0-37.0) g/dL RDW 22.2 H (11.5-15.5) % BUN (7-17) mg/dL Glucose (74-99) mg/dL POC Glucose (mg/dL) 147 H (75-99) mg/dL ALT (9-52) U/L Alkaline Phosphatase (38-126) U/L Total Protein (6.3-8.2) g/dL Albumin (3.5-5.0) g/dL Assessment and Plan (1) Status post aortic valve replacement Status: Acute (2) Bicuspid aortic valve Status: Acute (3) Diabetes mellitus, insulin dependent (IDDM), controlled Status: Acute (4) Hypertension Status: Acute Plan: She is progressing slowly but improving nevertheless. Anticipate discharge to ECF. We'll continue to follow. Time with Patient: Less than 30
--- NOTE | 2017-03-24 08:34 | XR ---
EXAMINATION TYPE: XR chest 1V portable DATE OF EXAM: 03/24/2017 COMPARISON: 03/24/2017 HISTORY: Status post cardiac surgery. Shortness of breath. TECHNIQUE: Single frontal view of the chest is obtained. FINDINGS: Postoperative changes of the chest including midline sternotomy wires and cardiac prosthet ic valve replacement is seen with dual lead left-sided cardiac device. Small left and trace right pleural effusions are redemonstrated as well as mild pulmonary edema. [place] r engorgement is likely related to the pulmonary edema. Cardiac silhouette is partially obscured but appears enlarged. Degenerative changes are appreciated of the acromioclavicular joints. IMPRESSION: Mild pulmonary edema, small left pleural effusion and trace right pleural effusion, and cardiomegaly likely on the basis of underlying congestive heart failure.
--- NOTE | 2017-03-24 08:40 | P.PN ---
<Simran Roberts - Last Filed: 03/24/17 08:32> Subjective Principal diagnosis: Bicuspid aortic valve with critical aortic stenosis, aortic insufficiency. CAD. Diabetes mellitus. Hypertension. History of TIAs, neuropathy, pericarditis, scoliosis, brain concussion. History of paroxysmal atrial fibrillation POD #20 elective aortic valve replacement with #25 mm magna ease bioprosthetic aortic valve, a clip ligation into left atrial appendage with a #35 mm AtriClip and intraoperative transesophageal echocardiogram. Postoperative acute blood loss anemia, a potential expected outcome of surgery. POD #20 reexploration of the chest, evacuation of clot, control of bleed. Postoperative hypoxic respiratory failure requiring prolonged mechanical ventilation, a potential expected outcome of surgery. POD #18 placement of right pleural chest tube for pleural effusion Postoperative hypovolemic shock, inherent to the surgery Postoperative paroxysmal atrial fibrillation, and expected outcome of surgery POD #12 dual-chamber pacemaker insertion, transvenous under fluoroscopic vision for sick sinus syndrome versus asystole, inherent to aortic valve surgery. POD #12 placement of left pleural chest tube for left pneumothorax as a result of pacemaker placement, inherent to the surgery. Sputum culture positive for Klebsiella, antibiotics per pulmonology. Patient is currently sitting up in chair in no acute distress. Awake and alert and following commands. Was up in the chair for approximate 5 hours yesterday per nursing. Objective - Vital Signs Vital signs: Vital Signs Temp 97.5 F L 03/24/17 04:00 Pulse 70 03/24/17 04:00 Resp 20 03/24/17 04:00 BP 158/68 03/24/17 04:00 Pulse Ox 91 L 03/24/17 04:00 Intake & Output 03/23/17 03/24/17 03/24/17 18:59 06:59 18:59 Intake Total 480 120 Output Total 1500 2200 Balance -1020 -2200 120 Weight 85.1 kg 85.1 kg Intake: Oral 480 120 Output: Urine 1500 2200 Uretheral (Cuellar) 700 700 Other: Voiding Method Indwelling Catheter Indwelling Catheter # Voids 0 ABP, PAP, CO, CI - Last Documented Arterial Blood Pressure 130/48 Pulmonary Artery Pressure 43/32 Cardiac Output 3.9 Cardiac Index 2.3 - Constitutional General appearance: Present: cooperative, no acute distress - Respiratory Details: Lungs sounds diminished with fine crackles in the bases. Respirations even, nonlabored. Currently on 3 L nasal cannula oxygen saturation 91%. Only able to achieve 500 mL on incentive spirometry. Effective cough. - Cardiovascular Details: AV paced on telemetry. Sternum stable. Heart hugger in place with patient demonstrating appropriate use. Palpable pulses bilaterally. Trace bilateral lower extremity edema remains, left upper extremity with edema. Teds/SCDs present. - Gastrointestinal Gastrointestinal Comment(s): Abdomen soft, nontender, nondistended. Active bowel sounds 4 quadrants. Tolerating diet. Positive bowel movement. - Genitourinary Genitourinary Comment(s): Cuellar present draining clear, yellow urine. Lasix given yesterday with excellent diuresis. - Integumentary Integumentary Comment(s): Anterior chest wall sternal incision well approximated Dermabond dressing. Left anterior chest wall pacemaker site well approximated and covered dry intact dressing. - Musculoskeletal Musculoskeletal: Present: generalized weakness - Psychiatric Psychiatric: Present: A&O x's 3, appropriate affect, intact judgment & insight - Allied health notes Allied health notes reviewed: nursing - Labs CBC & Chem 7: 03/24/17 05:36 03/24/17 05:33 Labs: Abnormal Lab Results - Last 24 Hours (Table) 03/23/17 03/23/17 03/23/17 Range/Units 11:17 16:16 20:37 Hgb (11.4-16.0) gm/dL Hct (34.0-46.0) % MCV (80.0-100.0) fL MCH (25.0-35.0) pg MCHC (31.0-37.0) g/dL RDW (11.5-15.5) % BUN (7-17) mg/dL Glucose (74-99) mg/dL POC Glucose (mg/dL) 203 H 218 H 119 H (75-99) mg/dL ALT (9-52) U/L Alkaline Phosphatase (38-126) U/L Total Protein (6.3-8.2) g/dL Albumin (3.5-5.0) g/dL 03/24/17 03/24/17 03/24/17 Range/Units 02:03 04:48 05:33 Hgb (11.4-16.0) gm/dL Hct (34.0-46.0) % MCV (80.0-100.0) fL MCH (25.0-35.0) pg MCHC (31.0-37.0) g/dL RDW (11.5-15.5) % BUN 27 H (7-17) mg/dL Glucose 131 H (74-99) mg/dL POC Glucose (mg/dL) 150 H 134 H (75-99) mg/dL ALT 58 H (9-52) U/L Alkaline Phosphatase 185 H (38-126) U/L Total Protein 5.8 L (6.3-8.2) g/dL Albumin 2.9 L (3.5-5.0) g/dL 03/24/17 03/24/17 Range/Units 05:36 05:57 Hgb 9.0 L (11.4-16.0) gm/dL Hct 29.2 L (34.0-46.0) % MCV 76.5 L (80.0-100.0) fL MCH 23.5 L (25.0-35.0) pg MCHC 30.7 L (31.0-37.0) g/dL RDW 22.2 H (11.5-15.5) % BUN (7-17) mg/dL Glucose (74-99) mg/dL POC Glucose (mg/dL) 147 H (75-99) mg/dL ALT (9-52) U/L Alkaline Phosphatase (38-126) U/L Total Protein (6.3-8.2) g/dL Albumin (3.5-5.0) g/dL - Imaging and Cardiology Chest x-ray: image reviewed Assessment and Plan (1) History of TIA (transient ischemic attack) Status: Acute (2) Hyperlipidemia Status: Acute (3) Osteoarthritis Status: Acute (4) Acute blood loss as cause of postoperative anemia Status: Acute (5) Paroxysmal atrial fibrillation Status: Acute (6) Status post aortic valve replacement Status: Acute (7) Bicuspid aortic valve Status: Acute (8) Diabetes mellitus, insulin dependent (IDDM), controlled Status: Acute (9) Hypertension Status: Acute (10) Severe aortic stenosis Status: Acute Plan: 1. Continue aspirin, Plavix, beta daysi, JENNIFER inhibitor, statin. Will maximize beta daysi therapy as able. Norvasc added per cardiology. 2. Continue amiodarone for A. fib prophylaxis. Will consider anticoagulation at discharge, will hold off for now, patient did have left atrial appendage ligated. 3. Wean O2 as tolerated. Encourage incentive spirometry use. Sputum culture positive for Klebsiella, continue ceftriaxone per pulmonary services. 4. Continue to encourage oral feeds to meet caloric needs for healing. 5. Increase activity as tolerated. Physical and occupational therapy following. 6. Continue Cuellar for strict accurate intake and output. 7. Monitor daily labs, chest x-rays. 8. GI/DVT prophylaxis. 9. Insulin management per primary service. Basal insulin added over the weekend. Will need to be placed back on insulin pump when discharged. 10. More recommendations as patient progresses. Referrals sent by director social welfare for subacute rehab, discharge planning in progress. We will like patient to be able to take a few steps before transferring to rehab. Time with Patient: Greater than 30 <Curly Boone - Last Filed: 03/24/17 14:27> Objective - Vital Signs Vital signs: Vital Signs Temp 97.6 F 03/24/17 12:00 Pulse 73 03/24/17 12:00 Resp 20 03/24/17 12:00 BP 128/71 03/24/17 12:00 Pulse Ox 94 L 03/24/17 12:00 Intake & Output 03/23/17 03/24/17 03/24/17 18:59 06:59 18:59 Intake Total 480 120 Output Total 1500 2200 350 Balance -1020 -2200 -230 Weight 85.1 kg 85.1 kg 85.1 kg Intake: Oral 480 120 Output: Urine 1500 2200 350 Uretheral (Cuellar) 700 700 350 Other: Voiding Method Indwelling Catheter Indwelling Catheter Indwelling Catheter # Voids 0 ABP, PAP, CO, CI - Last Documented Arterial Blood Pressure 130/48 Pulmonary Artery Pressure 43/32 Cardiac Output 3.9 Cardiac Index 2.3 - Labs CBC & Chem 7: 03/24/17 05:36 03/24/17 05:33 Labs: Abnormal Lab Results - Last 24 Hours (Table) 03/23/17 03/23/17 03/24/17 Range/Units 16:16 20:37 02:03 Hgb (11.4-16.0) gm/dL Hct (34.0-46.0) % MCV (80.0-100.0) fL MCH (25.0-35.0) pg MCHC (31.0-37.0) g/dL RDW (11.5-15.5) % BUN (7-17) mg/dL Glucose (74-99) mg/dL POC Glucose (mg/dL) 218 H 119 H 150 H (75-99) mg/dL ALT (9-52) U/L Alkaline Phosphatase (38-126) U/L Total Protein (6.3-8.2) g/dL Albumin (3.5-5.0) g/dL 03/24/17 03/24/17 03/24/17 Range/Units 04:48 05:33 05:36 Hgb 9.0 L (11.4-16.0) gm/dL Hct 29.2 L (34.0-46.0) % MCV 76.5 L (80.0-100.0) fL MCH 23.5 L (25.0-35.0) pg MCHC 30.7 L (31.0-37.0) g/dL RDW 22.2 H (11.5-15.5) % BUN 27 H (7-17) mg/dL Glucose 131 H (74-99) mg/dL POC Glucose (mg/dL) 134 H (75-99) mg/dL ALT 58 H (9-52) U/L Alkaline Phosphatase 185 H (38-126) U/L Total Protein 5.8 L (6.3-8.2) g/dL Albumin 2.9 L (3.5-5.0) g/dL 03/24/17 03/24/17 Range/Units 05:57 11:37 Hgb (11.4-16.0) gm/dL Hct (34.0-46.0) % MCV (80.0-100.0) fL MCH (25.0-35.0) pg MCHC (31.0-37.0) g/dL RDW (11.5-15.5) % BUN (7-17) mg/dL Glucose (74-99) mg/dL POC Glucose (mg/dL) 147 H 251 H (75-99) mg/dL ALT (9-52) U/L Alkaline Phosphatase (38-126) U/L Total Protein (6.3-8.2) g/dL Albumin (3.5-5.0) g/dL Assessment and Plan Plan: The patient was seen and examined. I agree with the above assessment and plan. Overall she remains debilitated and quite weak though she was up in a chair today. She does require full assist for transfers. She is still unable to walk. Her appetite has been improving and she is now cleared to eat anything as tolerated. She is currently on antibiotics and we will try to determine the duration. We have started oral Lasix. We will continue to wean her oxygen as tolerated. We will begin the process for rehab placement.
[2017-03-24] MEDS ORDERED: LISINOPRIL 10 MG TAB PO SCH (09:00)
[2017-03-24 11:39] LABS: Glucose,Whole Blood 251 mg/dL (75-99)
[2017-03-24] MEDS: CYANOCOBALAMIN 500 MCG TAB PO SCH (11:53)
[2017-03-24] MEDS: LISINOPRIL 10 MG TAB PO SCH (11:54)
[2017-03-24] MEDS: POTASSIUM CHLORIDE ER 20 MEQ TAB.ER PO SCH ×2 (11:54→22:01)
--- NOTE | 2017-03-24 14:30 | P.PN ---
Subjective The patient is seen again today 03/24/2017 in follow-up on the selective care unit. This is postoperative day #20 of the elective aortic valve replacement. She is currently sitting up in a chair at the bedside. She is awake and alert in no acute distress. She is maintaining good O2 saturations in the 90s on 3 L/ m per nasal cannula. She's been hemodynamically stable. Afebrile. No leukocytosis. Current hemoglobin 9.0. Objective - Vital Signs Vital signs: Vital Signs Temp 97.6 F 03/24/17 12:00 Pulse 73 03/24/17 12:00 Resp 20 03/24/17 12:00 BP 128/71 03/24/17 12:00 Pulse Ox 94 L 03/24/17 12:00 Intake & Output 03/23/17 03/24/17 03/24/17 18:59 06:59 18:59 Intake Total 480 120 Output Total 1500 2200 350 Balance -1020 -2200 -230 Weight 85.1 kg 85.1 kg 85.1 kg Intake: Oral 480 120 Output: Urine 1500 2200 350 Uretheral (Cuellar) 700 700 350 Other: Voiding Method Indwelling Catheter Indwelling Catheter Indwelling Catheter # Voids 0 ABP, PAP, CO, CI - Last Documented Arterial Blood Pressure 130/48 Pulmonary Artery Pressure 43/32 Cardiac Output 3.9 Cardiac Index 2.3 - Exam GENERAL EXAM: Pale, weak. Comfortable in no apparent distress. HEAD: Normocephalic. EYES: Normal reaction of pupils, equal size. NOSE: Clear with pink turbinates. THROAT: No erythema or exudates. NECK: No masses, no JVD. CHEST: Dressing dry and intact. LUNGS: Equal air entry with few scattered rhonchi, crackles in the posterior bases.. CVS: S1 and S2 normal with no audible murmurs, regular rhythm. ABDOMEN: No hepatosplenomegaly, normal bowel sounds, no guarding or rigidity. SPINE: No scoliosis or deformity SKIN: No rashes CENTRAL NERVOUS SYSTEM: No focal deficits, tone is normal in all 4 extremities. Extremities: There is trace peripheral edema. No clubbing, no cyanosis. Peripheral pulses are intact. - Labs CBC & Chem 7: 03/24/17 05:36 03/24/17 05:33 Labs: Abnormal Lab Results - Last 24 Hours (Table) 0803/23/17 03/24/17 Range/Units 16:16 20:37 02:03 Hgb (11.4-16.0) gm/dL Hct (34.0-46.0) % MCV (80.0-100.0) fL MCH (25.0-35.0) pg MCHC (31.0-37.0) g/dL RDW (11.5-15.5) % BUN (7-17) mg/dL Glucose (74-99) mg/dL POC Glucose (mg/dL) 218 H 119 H 150 H (75-99) mg/dL ALT (9-52) U/L Alkaline Phosphatase (38-126) U/L Total Protein (6.3-8.2) g/dL Albumin (3.5-5.0) g/dL 03/24/17 03/24/17 03/24/17 Range/Units 04:48 05:33 05:36 Hgb 9.0 L (11.4-16.0) gm/dL Hct 29.2 L (34.0-46.0) % MCV 76.5 L (80.0-100.0) fL MCH 23.5 L (25.0-35.0) pg MCHC 30.7 L (31.0-37.0) g/dL RDW 22.2 H (11.5-15.5) % BUN 27 H (7-17) mg/dL Glucose 131 H (74-99) mg/dL POC Glucose (mg/dL) 134 H (75-99) mg/dL ALT 58 H (9-52) U/L Alkaline Phosphatase 185 H (38-126) U/L Total Protein 5.8 L (6.3-8.2) g/dL Albumin 2.9 L (3.5-5.0) g/dL 03/24/17 03/24/17 Range/Units 05:57 11:37 Hgb (11.4-16.0) gm/dL Hct (34.0-46.0) % MCV (80.0-100.0) fL MCH (25.0-35.0) pg MCHC (31.0-37.0) g/dL RDW (11.5-15.5) % BUN (7-17) mg/dL Glucose (74-99) mg/dL POC Glucose (mg/dL) 147 H 251 H (75-99) mg/dL ALT (9-52) U/L Alkaline Phosphatase (38-126) U/L Total Protein (6.3-8.2) g/dL Albumin (3.5-5.0) g/dL Assessment and Plan Plan: Assessment 1 aortic valve replacement for severe bicuspid aortic valve stenosis, patient is postop day #20 2 postoperative mediastinal bleeding, recovered 3 hypotension, recovered 4 postoperative respiratory failure, expected outcome of surgery. 5 paroxysmal atrial fibrillation. 6 hypertension, history of 7 CVA/TIA, history of 8 bronchial asthma, history of 9 obesity 10 restrictive lung physiology on preop spirometry with an FEV1 of 56% of predicted. 11 thrombocytopenia, recovered. 12 postoperative anemia, expected, hemoglobin is at 9.0. Plan: The patient was seen and evaluated by Dr. Denney. Her chest x-ray and labs were reviewed. There is trace left pleural effusion. Continued cardiomegaly. She remains on diuretics. We'll discontinue the ceftriaxone. She is doing better from the pulmonary standpoint. She does need full assist with ambulation and transfer. Physical therapy is working with the patient. Will most likely need inpatient rehabilitation post discharge. We'll continue to follow.
[2017-03-24 16:39] LABS: Glucose,Whole Blood 222 mg/dL (75-99)
[2017-03-24 20:43] LABS: Glucose,Whole Blood 165 mg/dL (75-99)
[2017-03-24] MEDS: SENNOSIDES-DOCUSATE SODIUM 1 EACH TAB PO SCH (22:01)
[2017-03-24] MEDS: INSULIN GLARGINE 100 UNIT/ML 10 ML VIAL SQ SCH (22:02)
[2017-03-25] MEDS: OFLOXACIN 0.3% OPHTH DROPS 5 ML BOTTLE RIGHT EYE SCH ×3 (00:22→12:46)
[2017-03-25] MEDS: prednisoLONE ACETATE 1% OPHTH DROPS 1 ML BTL RIGHT EYE SCH ×3 (00:22→12:46)
[2017-03-25 02:07] LABS: Glucose,Whole Blood 154 mg/dL (75-99)
[2017-03-25 05:59] LABS: Glucose,Whole Blood 128 mg/dL (75-99)
[2017-03-25] MEDS: INSULIN LISPRO (humaLOG) 300 UNIT/3 ML VIAL SQ SCH ×2 (06:19→12:44)
[2017-03-25] MEDS: PANTOPRAZOLE 40 MG TABLET PO SCH (06:20)
[2017-03-25] MEDS: HEPARIN SODIUM,PORCINE 5,000 UNIT/ML 1 ML VIAL SQ SCH ×2 (06:20→12:46)
[2017-03-25 06:30] LABS: Anisocytosis Moderate; Basophils # (A) 0.1 k/uL (0-0.2); Basophils % (A) 1 %; CH 23.1; CHCM 29.8; Eosinophils # (A) 0.3 k/uL (0-0.7); Eosinophils % (A) 3 %; HDW 4.03; HGB 9.3 gm/dL (11.4-16.0); Hypochromasia Marked; Luc # (Auto) 0.27; Luc % (Auto) 3; Lymphocytes # (A) 1.4 k/uL (1.0-4.8); Lymphocytes % (A) 18 %; MCH 23.4 pg (25.0-35.0); MCV 77.8 fL (80.0-100.0); Mean Platelet Volume 6.8; Microcytosis Moderate; Monocytes # (A) 0.6 k/uL (0-1.0); Monocytes % (A) 7 %; Neutrophils # (A) 5.4 k/uL (1.3-7.7); Neutrophils % (A) 68 %; Poikilocytosis Moderate; RBC 3.99 m/uL (3.80-5.40); RDW 21.9 % (11.5-15.5); WBC 7.9 k/uL (3.8-10.6); WBC (Perox) 8.01
[2017-03-25 06:37] LABS: ALT 55 U/L (9-52); AST 38 U/L (14-36); Alkaline Phosphatase 155 U/L (38-126); Anion Gap 9 mmol/L; Blood Urea Nitrogen 23 mg/dL (7-17); Calcium 8.6 mg/dL (8.4-10.2); Carbon Dioxide 26 mmol/L (22-30); Chloride 107 mmol/L (98-107); Glucose 116 mg/dL (74-99); Non-African American GFR(MDRD) >60 (>60 ml/min/1.73 sqM); Potassium 4.2 mmol/L (3.5-5.1); Sodium 142 mmol/L (137-145); Total Bilirubin 0.8 mg/dL (0.2-1.3); Total Protein 5.9 g/dL (6.3-8.2)
[2017-03-25] MEDS ORDERED: amLODIPine 5 MG TAB PO ONE (07:00)
--- NOTE | 2017-03-25 07:45 | XR ---
EXAMINATION TYPE: XR chest 1V portable DATE OF EXAM: 03/25/2017 COMPARISON: March 24, 2017 HISTORY: Shortness of breath TECHNIQUE: Frontal and lateral views of the chest are obtained. FINDINGS: Scattered senescent parenchymal changes noted. Persistent left lower lobe atelectasis and/or infiltrate with small effusion. Improving aeration abou t the right hilum. Heart size is stable. Mediastinal structures are stable and grossly unremarkable. No evidence for hilar prominence. Degenerative changes dorsal spine. IMPRESSION: 1. Persistent left lower lobe atelectasis and/or infiltrate with small effusion. Improving aeration a bout the right hilum.
--- NOTE | 2017-03-25 07:58 | P.PN ---
Subjective Principal diagnosis: Bicuspid aortic valve with critical aortic stenosis, aortic insufficiency. CAD. Diabetes mellitus. Hypertension. History of TIAs, neuropathy, pericarditis, scoliosis, brain concussion. History of paroxysmal atrial fibrillation POD #21 elective aortic valve replacement with #25 mm magna ease bioprosthetic aortic valve, a clip ligation into left atrial appendage with a #35 mm AtriClip and intraoperative transesophageal echocardiogram. Postoperative acute blood loss anemia, a potential expected outcome of surgery. POD #21 reexploration of the chest, evacuation of clot, control of bleed. Postoperative hypoxic respiratory failure requiring prolonged mechanical ventilation, a potential expected outcome of surgery. POD #19 placement of right pleural chest tube for pleural effusion Postoperative hypovolemic shock, inherent to the surgery Postoperative paroxysmal atrial fibrillation, and expected outcome of surgery POD #13 dual-chamber pacemaker insertion, transvenous under fluoroscopic vision for sick sinus syndrome versus asystole, inherent to aortic valve surgery. POD #13 placement of left pleural chest tube for left pneumothorax as a result of pacemaker placement, inherent to the surgery. Sputum culture positive for Klebsiella, antibiotics per pulmonology. Patient is currently sitting up in chair in no acute distress. Awake and alert and following commands. Was up in the chair multiple times yesterday, physical therapy had her standing and marching in place. Objective - Vital Signs Vital signs: Vital Signs Temp 97.6 F 03/25/17 04:00 Pulse 74 03/25/17 04:00 Resp 17 03/25/17 04:00 BP 157/72 03/25/17 04:00 Pulse Ox 93 L 03/25/17 04:00 Intake & Output 03/24/17 03/25/17 03/25/17 18:59 06:59 18:59 Intake Total 480 960 Output Total 1700 1025 Balance -1220 -65 Weight 85.1 kg 67 kg Intake: Oral 480 960 Output: Urine 1700 1025 Uretheral (Cuellar) 700 Other: Voiding Method Indwelling Catheter Indwelling Catheter ABP, PAP, CO, CI - Last Documented Arterial Blood Pressure 130/48 Pulmonary Artery Pressure 43/32 Cardiac Output 3.9 Cardiac Index 2.3 - Constitutional General appearance: Present: cooperative, no acute distress - Respiratory Details: Lungs sounds diminished bilaterally. Respirations even, nonlabored. Currently on 3 L nasal cannula with oxygen saturations 93%. Still only able to achieve between 250-500 mL on her incentive spirometry. Effective cough. - Cardiovascular Details: S1, S2 present. Currently ventricular paced on telemetry. Sternum stable. Heart hugger in place with patient demonstrating appropriate use. Palpable pulses bilaterally. Trace bilateral lower extremity edema present, generalized edema decreased significantly. Teds/SCDs present. - Gastrointestinal Gastrointestinal Comment(s): Abdomen soft, nontender, nondistended. Active bowel sounds 4 quadrants. Tolerating diet. - Genitourinary Genitourinary Comment(s): Cuellar present draining clear, yellow urine. Excellent diuresis with Lasix. - Musculoskeletal Musculoskeletal: Present: generalized weakness - Psychiatric Psychiatric: Present: A&O x's 3, appropriate affect, intact judgment & insight - Allied health notes Allied health notes reviewed: nursing - Labs CBC & Chem 7: 03/25/17 05:42 03/25/17 05:42 Labs: Abnormal Lab Results - Last 24 Hours (Table) 03/24/17 03/24/17 03/24/17 Range/Units 11:37 16:33 20:42 Hgb (11.4-16.0) gm/dL Hct (34.0-46.0) % MCV (80.0-100.0) fL MCH (25.0-35.0) pg MCHC (31.0-37.0) g/dL RDW (11.5-15.5) % BUN (7-17) mg/dL Glucose (74-99) mg/dL POC Glucose (mg/dL) 251 H 222 H 165 H (75-99) mg/dL AST (14-36) U/L ALT (9-52) U/L Alkaline Phosphatase (38-126) U/L Total Protein (6.3-8.2) g/dL Albumin (3.5-5.0) g/dL 03/25/17 03/25/17 03/25/17 Range/Units 02:06 05:42 05:42 Hgb 9.3 L (11.4-16.0) gm/dL Hct 31.0 L (34.0-46.0) % MCV 77.8 L (80.0-100.0) fL MCH 23.4 L (25.0-35.0) pg MCHC 30.0 L (31.0-37.0) g/dL RDW 21.9 H (11.5-15.5) % BUN 23 H (7-17) mg/dL Glucose 116 H (74-99) mg/dL POC Glucose (mg/dL) 154 H (75-99) mg/dL AST 38 H (14-36) U/L ALT 55 H (9-52) U/L Alkaline Phosphatase 155 H (38-126) U/L Total Protein 5.9 L (6.3-8.2) g/dL Albumin 2.9 L (3.5-5.0) g/dL 03/25/17 Range/Units 05:58 Hgb (11.4-16.0) gm/dL Hct (34.0-46.0) % MCV (80.0-100.0) fL MCH (25.0-35.0) pg MCHC (31.0-37.0) g/dL RDW (11.5-15.5) % BUN (7-17) mg/dL Glucose (74-99) mg/dL POC Glucose (mg/dL) 128 H (75-99) mg/dL AST (14-36) U/L ALT (9-52) U/L Alkaline Phosphatase (38-126) U/L Total Protein (6.3-8.2) g/dL Albumin (3.5-5.0) g/dL - Imaging and Cardiology Chest x-ray: report reviewed, image reviewed Assessment and Plan (1) History of TIA (transient ischemic attack) Status: Acute (2) Hyperlipidemia Status: Acute (3) Osteoarthritis Status: Acute (4) Acute blood loss as cause of postoperative anemia Status: Acute (5) Paroxysmal atrial fibrillation Status: Acute (6) Status post aortic valve replacement Status: Acute (7) Bicuspid aortic valve Status: Acute (8) Diabetes mellitus, insulin dependent (IDDM), controlled Status: Acute (9) Hypertension Status: Acute (10) Severe aortic stenosis Status: Acute Plan: 1. Continue aspirin, Plavix, beta daysi, JENNIFER inhibitor, statin, Norvasc. 2. Continue amiodarone for A. fib prophylaxis. No anticoagulation at discharge , patient had left atrial appendage ligated. 3. Wean O2 as tolerated. Encourage incentive spirometry use. 4. Continue to encourage oral feeds to meet caloric needs for healing. 5. Increase activity as tolerated. Physical and occupational therapy following. Patient needs to get into the shower today. 6. Cuellar to be discontinued today. Patient will need bladder training. 7. GI/DVT prophylaxis. 8. Will need insulin pump reinstituted, will discuss with primary care service. 9. Will discharge to [facility] today. Time with Patient: Greater than 30
[2017-03-25 08:52] LABS: Glucose,Whole Blood 134 mg/dL (75-99)
[2017-03-25] MEDS ORDERED: METOPROLOL TARTRATE 25 MG TAB PO SCH (09:00)
[2017-03-25] MEDS: FUROSEMIDE 40 MG TAB PO SCH (09:01)
[2017-03-25] MEDS: ASPIRIN 325 MG TAB PO SCH (09:01)
[2017-03-25] MEDS: POTASSIUM CHLORIDE ER 20 MEQ TAB.ER PO SCH (09:01)
[2017-03-25] MEDS: CLOPIDOGREL 75 MG TAB PO SCH (09:01)
[2017-03-25] MEDS: AMIODARONE 200 MG TAB PO SCH (09:01)
[2017-03-25] MEDS: CALCIUM CARB-VIT D 500MG-200UN 1 EACH TAB PO SCH (09:01)
[2017-03-25] MEDS: NYSTATIN 100,000 UNIT/ML SUSP 500,000 UNIT/5 ML CUP PO SCH ×2 (09:02→12:47)
[2017-03-25] MEDS ORDERED: SENNOSIDES-DOCUSATE SODIUM 1 EACH TAB PO PRN (09:47)
[2017-03-25 10:52] VITALS: BMI 27.8
--- NOTE | 2017-03-25 11:32 | P.PN ---
Subjective Progress note dated 03/22/2017 This is a 76-year-old female was admitted way back on March 04. She status post aortic valve replacement for bicuspid aortic valve. The surgery was done that same day. She apparently had some significant mediastinal bleeding was taken back to the operating room on March 04. Subsequent to that because of asystole, the patient had a permanent pacemaker placed on March 12. She was extubated on March 17. Here in the ICU still. On O2 at 4 L. An IV is just KVO/PIVIL. She seems to be doing relatively well. The patient might be able to be transferred out of the ICU today. Chest x-ray shows some very mild fluid overload. Obviously had a very martinez postoperative course. The patient has a Dobbhoff tube in place. Denies any pain. No shortness of breath. Has been seen by cardiothoracic surgery already today. Progress note dated 03/23/2017 This is a 76-year-old female who was admitted way back on March 04. She status post aortic valve replacement for bicuspid aortic valve. This surgery was done of the same day, March 04. She has significant bleeding at that time she went back to the operating room. The patient has had a very martinez postoperative course [place] by asystole requiring permanent pacemaker insertion on March 12. She was finally extubated on March 17. She's here in the ICU but was transferred out to the floor yesterday. Doing relatively well. Still on O2. Recovering nicely. Apparently pulled her Dobbhoff tube out. No pain. No shortness of breath. No nausea vomiting or diarrhea. Seemed to be finally making some progress. Will likely need to go to some rehab facility. Progress note dated 03/25/2017 This is a 76-year-old female status post aortic valve replacement for bicuspid aortic valve. She may be discharged from the hospital today. Doing relatively well. Seen by me on the and and by my nurse practitioner on the . She is postop day #21. Doing well. Sitting at the bedside. Still on nasal O2 at 2 L. He is moving a bit more. His can be going to [facility] a poor urine I believe. Other than that she seems be relatively stable. Hemodynamically stable. Chest x-rays have been consistently stable. Objective - Vital Signs Vital signs: Vital Signs Temp 97.6 F 03/25/17 04:00 Pulse 74 03/25/17 04:00 Resp 17 03/25/17 04:00 BP 157/72 03/25/17 04:00 Pulse Ox 96 03/25/17 09:10 Intake & Output 03/24/17 03/25/17 03/25/17 18:59 06:59 18:59 Intake Total 480 960 180 Output Total 1700 1025 Balance -1220 -65 180 Weight 85.1 kg 67 kg 67 kg Intake: Oral 480 960 180 Output: Urine 1700 1025 Uretheral (Cuellar) 700 Other: Voiding Method Indwelling Catheter Indwelling Catheter ABP, PAP, CO, CI - Last Documented Arterial Blood Pressure 130/48 Pulmonary Artery Pressure 43/32 Cardiac Output 3.9 Cardiac Index 2.3 - Exam No acute distress, oriented 3. HEENT examination is grossly unremarkable. Nasal O2 in place. No oral lesions. Neck supple. Full range of motion. No adenopathy or thyromegaly. Cardiovascular examination reveals regular rhythm rate. S1-S2 normal. No murmur. Lungs reveal clear breath sounds. No wheezes rhonchi or crackles. Abdomen soft bowel sounds are heard. Extremities are intact. No cyanosis clubbing or significant edema. Skin is without rash. Neurologic examination is nonfocal. - Labs CBC & Chem 7: 03/25/17 05:42 03/25/17 05:42 Labs: Abnormal Lab Results - Last 24 Hours (Table) 03/24/17 03/24/17 03/24/17 Range/Units 11:37 16:33 20:42 Hgb (11.4-16.0) gm/dL Hct (34.0-46.0) % MCV (80.0-100.0) fL MCH (25.0-35.0) pg MCHC (31.0-37.0) g/dL RDW (11.5-15.5) % BUN (7-17) mg/dL Glucose (74-99) mg/dL POC Glucose (mg/dL) 251 H 222 H 165 H (75-99) mg/dL AST (14-36) U/L ALT (9-52) U/L Alkaline Phosphatase (38-126) U/L Total Protein (6.3-8.2) g/dL Albumin (3.5-5.0) g/dL 03/25/17 03/25/17 03/25/17 Range/Units 02:06 05:42 05:42 Hgb 9.3 L (11.4-16.0) gm/dL Hct 31.0 L (34.0-46.0) % MCV 77.8 L (80.0-100.0) fL MCH 23.4 L (25.0-35.0) pg MCHC 30.0 L (31.0-37.0) g/dL RDW 21.9 H (11.5-15.5) % BUN 23 H (7-17) mg/dL Glucose 116 H (74-99) mg/dL POC Glucose (mg/dL) 154 H (75-99) mg/dL AST 38 H (14-36) U/L ALT 55 H (9-52) U/L Alkaline Phosphatase 155 H (38-126) U/L Total Protein 5.9 L (6.3-8.2) g/dL Albumin 2.9 L (3.5-5.0) g/dL 03/25/17 03/25/17 Range/Units 05:58 08:48 Hgb (11.4-16.0) gm/dL Hct (34.0-46.0) % MCV (80.0-100.0) fL MCH (25.0-35.0) pg MCHC (31.0-37.0) g/dL RDW (11.5-15.5) % BUN (7-17) mg/dL Glucose (74-99) mg/dL POC Glucose (mg/dL) 128 H 134 H (75-99) mg/dL AST (14-36) U/L ALT (9-52) U/L Alkaline Phosphatase (38-126) U/L Total Protein (6.3-8.2) g/dL Albumin (3.5-5.0) g/dL Assessment and Plan (1) Status post cardiac pacemaker procedure Status: Acute (2) Respiratory failure Status: Acute (3) Asthma Status: Acute (4) Hypernatremia Status: Acute (5) Acute blood loss as cause of postoperative anemia Status: Acute (6) Hyperlipidemia Status: Acute (7) Paroxysmal atrial fibrillation Status: Acute (8) Pneumothorax, left Status: Acute (9) Status post aortic valve replacement Status: Acute (10) Bicuspid aortic valve Status: Acute (11) Diabetes mellitus, insulin dependent (IDDM), controlled Status: Acute (12) Hypertension Status: Acute (13) Severe aortic stenosis Status: Acute Plan: Plan dated 03/22/2017 The patient's doing well. Has been seen by cardiothoracic surgery. May be able to leave the unit today. The patient just on O2. Not receiving any IV fluids. I review the labs x-rays and medications. No additional recommendations are made. Prognosis given her very martinez postoperative course characterized by return to the OR for mediastinal bleeding and pacemaker insertion as well as a left-sided pneumothorax, have obviously slowed the patient's recovery but the patient seems to have recovered from those issues. We'll continue to follow. Plan dated 03/23/2017 The patient seemed be doing better. Moved out of the ICU yesterday. We'll continue with deep breathing coughing and clearing of secretions. Continue with oxygen therapy and incentive spirometry. No additional recommendations are made. We'll continue to follow closely. Prognosis is guarded. She's had a very martinez postoperative course. Prognosis is guarded as mentioned above. Plan dated 03/25/2017. The patient was moved out of the ICU on March 22. She' s been resting comfortably on the floor for the last 3 or 4 days. She may be discharged to the [facility] a poor urine long term today. We'll continue to follow closely. She needs to continue working on deep breathing coughing and clearing of secretions. I would recommend the incentive spirometer every hour while awake and updrafts. Additional recommendations suggestions are forthcoming. I'll make sure the primary service note is that we expect. Time with Patient: Less than 30
[2017-03-25 12:23] LABS: Glucose,Whole Blood 141 mg/dL (75-99)
[2017-03-25] MEDS: CYANOCOBALAMIN 500 MCG TAB PO SCH (12:45)
[2017-03-25] MEDS: LISINOPRIL 10 MG TAB PO SCH (12:46)
--- NOTE | 2017-03-25 13:52 | P.PN ---
Subjective Principal diagnosis: Aortic valve replacement This 76-year-old female with history of bicuspid valve and aortic insufficiency , prior TIA, diabetes, hyperlipidemia, hypertension, paroxysmal atrial fibrillation, who underwent elective aortic valve replacement as well as a clip ligation to the left atrial appendage. Subsequent to that initial surgery she also had an emergent evacuation of clots chest exploration and control of bleeding. Patient was seen and examined on the telemetry unit this morning sitting up at bedside, in no apparent distress. Pulled out her Dobbhoff tube this morning. Sputum culture positive for Klebsiella oxytoca on 03/11/2017 she is on antibiotics. Blood pressure high 170s to high 180s systolic. She did have adjustments made to her lisinopril, we will add Norvasc 2.5 mg 1 tablet daily to her medication regime. 03/25/2017 Patient seen and examined this morning. She may be discharged to the extended care facility today. Doing reasonably well overall. Hemodynamically stable. Objective - Vital Signs Vital signs: Vital Signs Temp 97.6 F 03/25/17 04:00 Pulse 74 03/25/17 04:00 Resp 17 03/25/17 04:00 BP 157/72 03/25/17 04:00 Pulse Ox 96 03/25/17 09:10 Intake & Output 03/24/17 03/25/17 03/25/17 18:59 06:59 18:59 Intake Total 480 960 180 Output Total 1700 1025 Balance -1220 -65 180 Weight 85.1 kg 67 kg 67 kg Intake: Oral 480 960 180 Output: Urine 1700 1025 Uretheral (Cuellar) 700 Other: Voiding Method Indwelling Catheter Indwelling Catheter ABP, PAP, CO, CI - Last Documented Arterial Blood Pressure 130/48 Pulmonary Artery Pressure 43/32 Cardiac Output 3.9 Cardiac Index 2.3 - Exam PHYSICAL EXAMINATION: HEENT: Head is atraumatic, normocephalic. Pupils equal, round. Neck is supple. There is no elevated jugular venous pressure. HEART EXAMINATION: Heart S1, S2 normal. No murmur or gallop heard. CHEST EXAMINATION: Lungs are clear to auscultation and precussion. No chest wall tenderness is noted on palpation or with deep breathing. ABDOMEN: Soft, nontender. Bowel sounds are heard. No organomegaly noted. EXTREMITIES: 2+ peripheral pulses with no evidence of peripheral edema and no calf tenderness noted. NEUROLOGIC patient is awake, alert and oriented -3. . - Labs CBC & Chem 7: 03/25/17 05:42 03/25/17 05:42 Labs: Abnormal Lab Results - Last 24 Hours (Table) 03/24/17 03/24/17 03/25/17 Range/Units 16:33 20:42 02:06 Hgb (11.4-16.0) gm/dL Hct (34.0-46.0) % MCV (80.0-100.0) fL MCH (25.0-35.0) pg MCHC (31.0-37.0) g/dL RDW (11.5-15.5) % BUN (7-17) mg/dL Glucose (74-99) mg/dL POC Glucose (mg/dL) 222 H 165 H 154 H (75-99) mg/dL AST (14-36) U/L ALT (9-52) U/L Alkaline Phosphatase (38-126) U/L Total Protein (6.3-8.2) g/dL Albumin (3.5-5.0) g/dL 03/25/17 03/25/17 03/25/17 Range/Units 05:42 05:42 05:58 Hgb 9.3 L (11.4-16.0) gm/dL Hct 31.0 L (34.0-46.0) % MCV 77.8 L (80.0-100.0) fL MCH 23.4 L (25.0-35.0) pg MCHC 30.0 L (31.0-37.0) g/dL RDW 21.9 H (11.5-15.5) % BUN 23 H (7-17) mg/dL Glucose 116 H (74-99) mg/dL POC Glucose (mg/dL) 128 H (75-99) mg/dL AST 38 H (14-36) U/L ALT 55 H (9-52) U/L Alkaline Phosphatase 155 H (38-126) U/L Total Protein 5.9 L (6.3-8.2) g/dL Albumin 2.9 L (3.5-5.0) g/dL 03/25/17 03/25/17 Range/Units 08:48 12:09 Hgb (11.4-16.0) gm/dL Hct (34.0-46.0) % MCV (80.0-100.0) fL MCH (25.0-35.0) pg MCHC (31.0-37.0) g/dL RDW (11.5-15.5) % BUN (7-17) mg/dL Glucose (74-99) mg/dL POC Glucose (mg/dL) 134 H 141 H (75-99) mg/dL AST (14-36) U/L ALT (9-52) U/L Alkaline Phosphatase (38-126) U/L Total Protein (6.3-8.2) g/dL Albumin (3.5-5.0) g/dL Assessment and Plan Plan: Assessment and Plan (1) Status post cardiac pacemaker procedure Status: Acute (2) Respiratory failure Status: Acute (3) Asthma Status: Acute (4) Hypernatremia Status: Acute (5) Acute blood loss as cause of postoperative anemia Status: Acute (6) Hyperlipidemia Status: Acute (7) Paroxysmal atrial fibrillation Status: Acute (8) Pneumothorax, left Status: Acute (9) Status post aortic valve replacement Status: Acute (10) Bicuspid aortic valve Status: Acute (11) Diabetes mellitus, insulin dependent (IDDM), controlled Status: Acute (12) Hypertension Status: Acute From cardiology's perspective, we will continue the patient on her current medications. Arrangements are being made for transfer to ECF today. DNP note has been reviewed, I agree with a documented findings and plan of care. Patient was seen and examined.
[2017-03-25 15:28] VITALS: RESP 18
--- NOTE | 2017-03-25 15:54 | P.DS ---
Providers Date of admission: 03/04/17 05:44 Attending physician: Han Aguirre Consults: 03/04/17 13:34 Consult Physician Routine Consulting Provider: Elia Denney Consult Reason/Comments: Aerospace Stress Engineer Consult: post cardiac surgery Do you want consulting provider notified?: Yes Consult Physician Routine Consulting Provider: Carlos Tabor Consult Reason/Comments: medical management Do you want consulting provider notified?: Yes Consult Physician Routine Consulting Provider: Velasquez Lazaro Consult Reason/Comments: Packaging Technician Consult: post cardiac surgery Do you want consulting provider notified?: Yes 03/06/17 08:15 Consult Physician Routine Consulting Provider: Karsten Ledesma Consult Reason/Comments: possible permanent pacemaker placement Do you want consulting provider notified?: Yes Primary care physician: Stated None - Discharge Diagnosis(es) (1) History of TIA (transient ischemic attack) Current Visit: Yes Status: Acute (2) Hyperlipidemia Current Visit: Yes Status: Acute (3) Osteoarthritis Current Visit: Yes Status: Acute (4) Acute blood loss as cause of postoperative anemia Current Visit: Yes Status: Acute (5) Paroxysmal atrial fibrillation Current Visit: Yes Status: Acute (6) Status post aortic valve replacement Current Visit: Yes Status: Acute (7) Bicuspid aortic valve Current Visit: No Status: Acute (8) Diabetes mellitus, insulin dependent (IDDM), controlled Current Visit: No Status: Acute (9) Hypertension Current Visit: No Status: Acute (10) Severe aortic stenosis Current Visit: No Status: Acute Hospital Course: FINAL DIAGNOSIS: 1. Bicuspid aortic valve with critical aortic stenosis, aortic insufficiency 2. Coronary artery disease 3. Diabetes mellitus 4. Hypertension 5. History of TIAs 6. History of neuropathy 7. History of pericarditis 8. History of scoliosis 9. History of brain concussion 10. History of paroxysmal atrial fibrillation 11. Postoperative acute blood loss anemia 12. Postoperative hypoxic respiratory failure requiring prolonged mechanical ventilation 13. Postoperative hypovolemic shock 14. Postoperative paroxysmal atrial fibrillation, sick sinus syndrome versus asystole 15. Postoperative left-sided pneumothorax post pacemaker insertion 16. Sputum culture positive for Klebsiella, unknown duration with no sputum culture preoperative PRINCIPAL PROCEDURE: 1. Elective aortic valve replacement with #25 mm Magna Ease bioprostetic aortic valve 2. Clip ligation into left atrial appendage with #35 mm AtriClip 3. Intraoperative transesophageal echocardiogram 4. Reexploration of the chest, evacuation of clot, control of bleed 5. Dual-chamber pacemaker insertion, transvenous under fluoroscopic vision 6. Postoperative placement of right pleural chest tube for pleural effusion, left pleural chest tube for pneumothorax after pacemaker insertion HISTORY OF PRESENT ILLNESS: This 72-year-old 6-year-old female who presented to her cardiology office with complaints of significant shortness of breath and syncopal episode without any chest pain. She denied any other symptoms at that time. She was found to have severe aortic stenosis on echocardiogram. She did have a heart catheterization in December 2016 which demonstrated no significant coronary artery disease. She was referred to Dr. Aguirre for consideration of transfer catheter aortic valve replacement. Subsequent she was evaluated at [facility] was determined not to be a candidate as she had a bicuspid aortic valve. She returned to follow up with Dr. Aguirre and surgical aortic valve replacement was recommended. An extensive discussion was had with the patient, risks and benefits were explained, and consent was obtained to proceed with surgery. HOSPITAL COURSE: The patient was brought to the hospital on 03/04/2017, taken to the preoperative area, prepared in the usual fashion, and subsequently taken to the operating room where Dr. Aguirre performed an elective aortic valve replacement with #25 mm Magna Ease bioprosthetic aortic valve, clip ligation into her left atrial appendage with a 35 mm AtriClip, and intraoperative transesophageal echocardiogram. Upon completion of surgery the patient was transferred to the cardiovascular intensive care unit where she was recovered and monitored hemodynamically. She developed acute blood loss anemia and hypovolemic shock the night of surgery and was taken back to the operating room for reexploration of the chest, evacuation of clot, and control of bleeding. Upon stabilization she was transferred back to the intensive care unit where she continued to be monitored. She continued to have a martinez recovery period. Pulmonology tried multiple times to wean her from the ventilator with one extubation and reintubation and she did experience a prolonged mechanical ventilation, with successful extubation on postop day #13. She had a sputum culture which was positive for Klebsiella, although of unknown duration as she did not have a preoperative sputum culture. She did experience paroxysmal atrial fibrillation which she had preoperatively many years prior. She did have episodes of sick sinus syndrome versus asystole underlying her epicardial pacemaker requiring insertion of a dual-chamber pacemaker under fluoroscopic vision. She did experience a left-sided pneumothorax post pacemaker insertion requiring placement of a left-sided pleural chest tube. Once pacemaker was placed and patient was extubated she did progress to cardiac rehabilitation phase 1. Eventually all lines, tubes, and drips were discontinued as appropriate, and she was transferred to [address] [place] [address] for further monitoring and rehabilitation. Her oxygen was titrated down, physical therapy continued to work with her, and she was ready to be discharged to [facility] for rehabilitation on postoperative day #21. She was sent to with written and verbal instructions regarding medications, activity restrictions, signs and symptoms requiring physician notification, and follow-up appointments. COMPLICATIONS: The patient experienced postoperative complications of acute blood loss anemia and hypovolemic shock, hypoxic respiratory failure requiring prolonged mechanical ventilation, sick sinus syndrome versus asystole, left- sided pneumothorax, all of which were treated appropriately. DISCHARGE INSTRUCTIONS: 1. No driving for 4 weeks, or until physician gives their ok. 2. The patient should sleep in their own bed, no medical bed needed. 3. Stairs are not an issue. If the bedroom is upstairs, it is advised that the patient go up at night and down in the morning for the first week. Go slowly, using handrail and take 1 step at a time. 4. CHAVA hose are to be worn for 30 days or until physician discontinues. 5. Heart hugger is to be worn 100% of the time until physician discontinues.( except when showering) 6. No lifting, pushing, or pulling more than 10 pounds for 12 weeks. The physician will advise of any restriction changes. 7. The patient is expected to continue the prescribed walking program. 8. Continue pain control per as needed orders. 9. Continue with incentive spirometry and splinting/heart hugger until otherwise directed by the physician. 10. Must shower daily using liquid antibacterial soap and a separate white washcloth for each individual incision. 11. Routine sternal incision care. No powders, lotions, ointments on incisions. 12. Please call surgeon/STRUCTURAL METAL WORKER for temp greater than 101 F or purulent drainage from incisions. 13. All prescriptions given by surgeon for 30 days. Refills need to be filled through supervisor [facility]/primary care physician. REHAB FACILITY/HOME HEALTH SERVICES TO PROVIDE: RN SKILLED HOME CARE SERVICES FOR POST-OP SURGICAL PATIENTS WITH THE FOLLOWING: Coronary Artery Bypass Surgery (CABG), Mitral Valve Replacement/ Repair ( MVR), Aortic Valve Replacement/Repair (AVR) RN TO CONTINUE EDUCATION FROM ``ROAD TO A HEALTH HEART PATIENT EDUCATION MANUAL (GIVEN TO PATIENT IN THE HOSPITAL) MEDICATION RECONCILIATION WITH EDUCATION NEEDED ON FIRST HOME VISIT EMPHASIZE IMPORTANCE OF WEARING BREAST SUPPORT/HEART HUGGER ENCOURAGE USE OF INCENTIVE SPIROMETER 10 X EVERY HOUR WHILE AWAKE ENCOURAGE UTILIZATION OF LOWER EXTREMITY COMPRESSION STOCKINGS/CHAVA HOSE and ELEVATE LEGS ABOVE LEVEL OF HEART WHILE AT REST. ENCOURAGE AMBULATION 3-5x/day INCREASING TOLERATES, WHILE AVOID EXTREMES IN TEMPERATURE FREQUENCY: RN TO OPEN THE PATIENT WITHIN 24 HOURS OF DISCHARGE FROM THE HOSPITAL WITH TELEHEALTH INSTALLED AT [facility], RN TO VISIT 2-3 X A WEEK FOR 4 WEEKS ESTABLISHED BY PATIENT NEEDS. LABORATORY: CBC, CMP TO BE DRAWN ON THE THIRD DAY HOME, Wednesday03/28/2017 (RAN STAT) FAX RESULTS TO [phone]. TELEHEALTH PARAMETERS: WEIGHT: NOTIFY MD OF WEIGHT GAIN OF 2 LBS IN 24 HOURS OR 5 LBS IN ONE WEEK HR: NOTIFY MD OF HR <55 BPM OR HR>100 BPM BP: NOTIFY MD IF BP <90/55 OR BP>140/100 O2 SAT: NOTIFY MD IF PO2<93% ON ROOM AIR SEND TELEHEALTH REPORT TO [employer] PIPE COVERING SUPERVISOR AND CARDIOVASCULAR SURGEON THE FIRST WEEK OF CARE AND THEN BI-WEEKLY. PLEASE ADDITIONALLY COMMUNICATE ANY ABNORMALS AND NEW FINDINGS TO THE SURGEONS OFFICE. A Red armband has been placed on the patient. It should be worn for 30 days post surgery and will be removed by the cardiac surgeons. If an ER visit is necessary, please make sure the number on the Red armband is called. Plan - Discharge Summary New Discharge Prescriptions: New Amiodarone [Cordarone] 200 mg PO BID tab Aspirin 325 mg PO DAILY tab Atorvastatin [Lipitor] 40 mg PO HS tab Clopidogrel [Plavix] 75 mg PO DAILY tab Furosemide [Lasix] 40 mg PO DAILY 8 Days HYDROcodone/APAP 5-325MG [[place] 5-325] 1 each PO Q6HR PRN #60 tab PRN Reason: Moderate Pain Insulin Glargine [Lantus] 20 unit SQ HS vial INSULIN LISPRO (humaLOG) [humaLOG (formulary)] 0 unit SQ ACHS vial Ipratropium-Albuterol Nebulize [Duoneb 0.5 mg-3 mg/3 ml Soln] 3 ml INHALATION RT-Q2H PRN neb PRN Reason: Shortness Of Breath Or Wheezing Lisinopril [Zestril] 30 mg PO DAILY@1200 tab Metoprolol Tartrate [Lopressor] 100 mg PO BID tab Nystatin 100,000 Unit/ml Susp [Mycostatin Oral Susp] 500,000 unit PO QID dose Pantoprazole [Protonix] 40 mg PO AC-BRKFST tab Potassium Chloride ER [K-Dur 20] 20 meq PO BID 8 Days Sennosides-Docusate Sodium [Senokot-S] 2 each PO HS PRN tab PRN Reason: Constipation Continue Cyanocobalamin [Vitamin B-12] 2,500 mcg PO DAILY Albuterol Sulfate [Proair Hfa] 2 puff INHALATION RT-Q6H PRN PRN Reason: Shortness Of Breath Calcium Carb-Vit D 500Mg-200Un [Oscal 500+D] 1 tab PO DAILY amLODIPine [Norvasc] 5 mg PO DAILY prednisoLONE ACETATE 1% OPHTH [Pred Forte 1%] 1 drops RIGHT EYE QID Ofloxacin 0.3% Ophth Soln [Ocuflox Ophth Soln] 1 drops RIGHT EYE QID Weekly D3 Vitamin 35,000 unit PO Q7D Insulin Aspart [NovoLOG] See Protocol SQ-PUMP CONTINUOUS #0 Discontinued Acetaminophen/Diphenhydramine [Tylenol PM 500-25mg] 1 tab PO HS PRN PRN Reason: Insomnia Pravastatin Sodium [Pravachol] 40 mg PO HS Lisinopril [Zestril] 10 mg PO DAILY Fenofibrate [Lofibra] 160 mg PO DAILY Atenolol [Tenormin] 25 mg PO DAILY Aspirin EC [Ecotrin Low Dose] 81 mg PO DAILY Chlorpheniramine Maleate [Chlor-Trimeton] 4 mg PO HS Aspirin 325 mg PO ONCE Ibuprofen [Advil] 200 mg PO Q8HR PRN PRN Reason: Pain Discharge Medication List Albuterol Sulfate [Proair Hfa] 2 puff INHALATION RT-Q6H PRN 07/17/16 [History] Calcium Carb-Vit D 500Mg-200Un [Oscal 500+D] 1 tab PO DAILY 07/17/16 [History] Cyanocobalamin [Vitamin B-12] 2,500 mcg PO DAILY 07/17/16 [History] amLODIPine [Norvasc] 5 mg PO DAILY 07/17/16 [History] Ofloxacin 0.3% Ophth Soln [Ocuflox Ophth Soln] 1 drops RIGHT EYE QID 02/23/17 [ History] prednisoLONE ACETATE 1% OPHTH [Pred Forte 1%] 1 drops RIGHT EYE QID 02/23/17 [ History] Weekly D3 Vitamin 35,000 unit PO Q7D 03/04/17 [History] Amiodarone [Cordarone] 200 mg PO BID tab 03/25/17 [Rx] Aspirin 325 mg PO DAILY tab 03/25/17 [Rx] Atorvastatin [Lipitor] 40 mg PO HS tab 03/25/17 [Rx] Clopidogrel [Plavix] 75 mg PO DAILY tab 03/25/17 [Rx] Furosemide [Lasix] 40 mg PO DAILY 8 Days 03/25/17 [Rx] HYDROcodone/APAP 5-325MG [[place] 5-325] 1 each PO Q6HR PRN #60 tab 03/25/17 [Rx] INSULIN LISPRO (humaLOG) [humaLOG (formulary)] 0 unit SQ ACHS vial 03/25/17 [Rx ] Insulin Aspart [NovoLOG] See Protocol SQ-PUMP CONTINUOUS #0 03/25/17 [Rx] Insulin Glargine [Lantus] 20 unit SQ HS vial 03/25/17 [Rx] Ipratropium-Albuterol Nebulize [Duoneb 0.5 mg-3 mg/3 ml Soln] 3 ml INHALATION RT -Q2H PRN neb 03/25/17 [Rx] Lisinopril [Zestril] 30 mg PO DAILY@1200 tab 03/25/17 [Rx] Metoprolol Tartrate [Lopressor] 100 mg PO BID tab 03/25/17 [Rx] Nystatin 100,000 Unit/ml Susp [Mycostatin Oral Susp] 500,000 unit PO QID dose 03/25/17 [Rx] Pantoprazole [Protonix] 40 mg PO AC-BRKFST tab 03/25/17 [Rx] Potassium Chloride ER [K-Dur 20] 20 meq PO BID 8 Days 03/25/17 [Rx] Sennosides-Docusate Sodium [Senokot-S] 2 each PO HS PRN tab 03/25/17 [Rx] Follow up Appointment(s)/Referral(s): Velasquez Lazaro MD [STAFF PHYSICIAN] - 2 Weeks (will call with day and time) Elia Denney DO [Doctor of Osteopathic Medicine] - 04/27/17 1:00 pm Han Aguirre MD [STAFF PHYSICIAN] - 04/06/17 2:15 pm Carlos Tabor MD [STAFF PHYSICIAN] - 04/20/17 10:00 am Ambulatory/Diagnostic Orders: Complete Blood Count w/diff [LAB.AMB] Time Frame: 3 Days, Location: Determined By Patient Comprehensive Metabolic Panel [LAB.AMB] Time Frame: 3 Days, Location: Determined By Patient Discharge Disposition: TRANSFER TO SNF/ECF
[2017-03-25 17:19] VITALS: BP 153/70; PULSE 75; TEMP 97.3
[2017-03-26] MEDS ORDERED: amLODIPine 5 MG TAB PO SCH (09:00)
== END 2017-03-25 17:26 | DRG 219 ==
LOC: 2ORMAIN 05:44 → 6ICU 13:30 → 6SEL 03-22 18:22
PROVIDERS: ADMIT Thoracic Surgery (Cardiothoracic Vascular Surgery); ATTEND Thoracic Surgery (Cardiothoracic Vascular Surgery)
PROC: 02RF08Z Replacement of Aortic Valve with Zooplastic Tissue, Open Approach (ICD-10-PCS; principal; 2017-03-04 08:00)
PROC: 02L70CK Occlusion of Left Atrial Appendage with Extraluminal Device, Open Approach (ICD-10-PCS; principal; 2017-03-04 08:00)
PROC: 0W3D0ZZ Control Bleeding in Pericardial Cavity, Open Approach (ICD-10-PCS; principal; 2017-03-04 08:00)
PROC: 30233L1 Transfusion of Nonautologous Fresh Plasma into Peripheral Vein, Percutaneous Approach (ICD-10-PCS; principal; 2017-03-04 08:00)
PROC: 30233N1 Transfusion of Nonautologous Red Blood Cells into Peripheral Vein, Percutaneous Approach (ICD-10-PCS; principal; 2017-03-04 08:00)
PROC: 5A1955Z Respiratory Ventilation, Greater than 96 Consecutive Hours (ICD-10-PCS; principal; 2017-03-04 08:00)
PROC: B246ZZ4 Ultrasonography of Right and Left Heart, Transesophageal (ICD-10-PCS; principal; 2017-03-04 08:00)
PROC: 5A1221Z Performance of Cardiac Output, Continuous (ICD-10-PCS; principal; 2017-03-04 08:00)
PROC: 30233R1 Transfusion of Nonautologous Platelets into Peripheral Vein, Percutaneous Approach (ICD-10-PCS; principal; 2017-03-04 08:00)
PROC: 0W9930Z Drainage of Right Pleural Cavity with Drainage Device, Percutaneous Approach (ICD-10-PCS; 2017-03-06)
PROC: 02HV33Z Insertion of Infusion Device into Superior Vena Cava, Percutaneous Approach (ICD-10-PCS; 2017-03-08)
PROC: 0W9B30Z Drainage of Left Pleural Cavity with Drainage Device, Percutaneous Approach (ICD-10-PCS; 2017-03-12)
PROC: 02HK3JZ Insertion of Pacemaker Lead into Right Ventricle, Percutaneous Approach (ICD-10-PCS; 2017-03-13)
PROC: 02H63JZ Insertion of Pacemaker Lead into Right Atrium, Percutaneous Approach (ICD-10-PCS; 2017-03-13)
PROC: 0JH606Z Insertion of Pacemaker, Dual Chamber into Chest Subcutaneous Tissue and Fascia, Open Approach (ICD-10-PCS; 2017-03-13)
DX: I35.2 Nonrheumatic aortic (valve) stenosis with insufficiency (principal); R57.1 Hypovolemic shock; J96.01 Acute respiratory failure with hypoxia; I44.2 Atrioventricular block, complete; E87.0 Hyperosmolality and hypernatremia; E11.22 Type 2 diabetes mellitus with diabetic chronic kidney disease; I50.9 Heart failure, unspecified; D69.6 Thrombocytopenia, unspecified; I13.0 Hypertensive heart and chronic kidney disease with heart failure and stage 1 through stage 4 chronic kidney disease, or unspecified chronic kidney disease; E87.4 Mixed disorder of acid-base balance; J98.11 Atelectasis; I97.611 Postprocedural hemorrhage of a circulatory system organ or structure following cardiac bypass; J95.811 Postprocedural pneumothorax; B96.1 Klebsiella pneumoniae [K. pneumoniae] as the cause of diseases classified elsewhere; E66.9 Obesity, unspecified; E78.5 Hyperlipidemia, unspecified; I25.10 Atherosclerotic heart disease of native coronary artery without angina pectoris; I48.0 Paroxysmal atrial fibrillation; I49.5 Sick sinus syndrome; J45.909 Unspecified asthma, uncomplicated; M19.90 Unspecified osteoarthritis, unspecified site; M41.9 Scoliosis, unspecified; N18.9 Chronic kidney disease, unspecified; Z79.4 Long term (current) use of insulin; Z79.82 Long term (current) use of aspirin; Z79.899 Other long term (current) drug therapy; Z86.73 Personal history of transient ischemic attack (TIA), and cerebral infarction without residual deficits; Z96.652 Presence of left artificial knee joint; Z88.5 Allergy status to narcotic agent
CPT/HCPCS: 36430; 36569; 36600; 36620; 70450; 71010; 74000; 76937; 80048; 80053; 80162; 82150; 82330; 82805; 83690; 83735; 84100; 84132; 84439; 84443; 85025; 85027; 85520; 85610; 85730; 86850; 86891; 86900; 86901; 86920; 87070; 87075; 87077; 87186; 87205; 87324; 88305; 88311; 94002; 94003; 94640; 94660; 94760; 94770

== ENCOUNTER 2021-03-21 00:33 | Inpatient (IN) | payer MEDICARE ==
[2021-03-21] MEDS ORDERED: SODIUM CHLORIDE 0.9% 1,000 ML IV STA (00:35)
--- NOTE | 2021-03-21 00:57 | ED ---
SOB HPI - General Stated Complaint: Chest Pain Time Seen by Provider: 03/21/21 00:35 Source: RN notes reviewed, old records reviewed Limitations: no limitations - History of Present Illness Initial Comments: This is a 80-year-old female to the ER today. States she presents for evaluation regards to shortness of breath and chest pain. History of high blood pressure was found to have significant high blood pressure at her house. Patient has persistent chest pain on arrival to the ER low improved with nitro. No recent travel history or sick contacts no fevers. Patient short of breath began tonight and she was very anxious on EMS arrival. History obtained from EMS and patient's charting MD Complaint: shortness of breath, chest pain, anxiety -: hour(s) Severity: moderate Severity scale (1-10): 5 Quality: throbbing Consistency: intermittent, now resolved Improves With: oxygen, other (Nitroglycerin) Worsens With: lying flat, exertion Known History Of: congestive heart failure Context: recent URI, anxiety, recent illness Associated Symptoms: denies other symptoms Treatments Prior to Arrival: none - Related Data Home Medications Medication Instructions Recorded Confirmed Albuterol Sulfate [Proair Hfa] 2 puff INHALATION RT-Q6H PRN 07/17/16 07/09/17 Calcium Carb-Vit D 500Mg-5Mcg 1 tab PO DAILY 07/17/16 07/09/17 [Oscal 500+D 5 Mcg (200 Iu)] Cyanocobalamin [Vitamin B-12] 1,000 mcg PO DAILY 07/17/16 07/09/17 amLODIPine [Norvasc] 5 mg PO DAILY 07/17/16 07/09/17 Ofloxacin 0.3% Ophth Soln [Ocuflox 1 drops RIGHT EYE QID 02/23/17 07/09/17 Ophth Soln] Weekly D3 Vitamin 35,000 unit PO Q7D 03/04/17 07/09/17 INSULIN ASPART (NovoLOG) [NovoLOG See Protocol SQ-PUMP CONTINUOUS 07/09/17 07/09/17 (formulary)] Metoprolol Tartrate [Lopressor] 100 mg PO BID 07/09/17 07/09/17 Pantoprazole [Protonix] 40 mg PO DAILY 07/09/17 07/09/17 lisinopriL [Zestril] 30 mg PO DAILY 07/09/17 07/09/17 Previous Rx's Medication Instructions Recorded Atorvastatin [Lipitor] 40 mg PO HS tab 03/25/17 Clopidogrel [Plavix] 75 mg PO DAILY tab 03/25/17 Aspirin 325 mg PO DAILY #30 tab 07/10/17 Allergies Allergy/AdvReac Type Severity Reaction Status Date / Time codeine Allergy Rash/Hives Verified 07/09/17 13:11 metformin [From Glucophage] Allergy Nausea & Verified 07/09/17 13:11 Vomiting milk Allergy Unknown Verified 07/09/17 13:11 orange Allergy Rash/Hives Verified 07/09/17 13:11 adhesive tape AdvReac Rash/Hives Verified 07/09/17 13:11 Penicillins AdvReac Nausea Verified 07/09/17 11:27 Review of Systems ROS Statement: Those systems with pertinent positive or pertinent negative responses have been documented in the HPI. ROS Other: All systems not noted in ROS Statement are negative. 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 no current home care sevices. has a cane/walker glucometer, insulin pump. Past Alcohol Use History: None Reported Past Drug Use History: None Reported - Past Family History Mother Family Medical History: Cancer Son(s) Family Medical History: Rheumatoid Arthritis (RA) Additional Family Medical History / Comment(s): RHEUMATOID ARTHRITIS Father History Unknown: Yes Family Medical History: No Reported History Additional Family Medical History / Comment(s): from kidney failure General Exam General appearance: alert, in no apparent distress, anxious Head exam: Present: atraumatic, normocephalic, normal inspection Eye exam: Present: normal appearance, PERRL, EOMI. Absent: scleral icterus, conjunctival injection, periorbital swelling ENT exam: Present: normal exam, mucous membranes moist Neck exam: Present: normal inspection. Absent: tenderness, meningismus, lymphadenopathy Respiratory exam: Present: respiratory distress, rales, rhonchi, decreased breath sounds, prolonged expiratory. Absent: wheezes, stridor Cardiovascular Exam: Present: regular rate, normal rhythm, normal heart sounds. Absent: systolic murmur, diastolic murmur, rubs, gallop, clicks GI/Abdominal exam: Present: soft, normal bowel sounds. Absent: distended, tenderness, guarding, rebound, rigid Extremities exam: Present: normal inspection, full ROM, normal capillary refill. Absent: tenderness, pedal edema, joint swelling, calf tenderness Back exam: Present: normal inspection Neurological exam: Present: alert, oriented X3, CN II-XII intact Psychiatric exam: Present: normal affect, normal mood Skin exam: Present: warm, dry, intact, normal color. Absent: rash Course Vital Signs 03/21/21 03/21/21 01:10 01:29 Pulse Rate 84 Respiratory 22 18 Rate Blood Pressure 149/84 O2 Sat by Pulse 98 Oximetry - Reevaluation(s) Reevaluation #1: 03/21/21 02:34 Record is reviewed Reevaluation #2: 03/21/21 02:34 Patient resting comfortably with supportive care, O2 Reevaluation #3: 03/21/21 02:35 Patient is informed results and questions answered, no current active chest pain Medical Decision Making - Medical Decision Making 80 female to the ER for evaluation of chest pain. Patient presents today for evaluation of chest pain with CHF. Patient be admitted for diuresis and chest pain observation - Lab Data Result diagrams: 03/21/21 01:20 03/21/21 01:20 Lab Results 03/21/21 03/21/21 03/21/21 Range/Units 01:20 01:20 01:20 WBC 14.1 H (3.8-10.6) k/uL RBC 5.87 H (3.80-5.40) m/uL Hgb 12.0 (11.4-16.0) gm/dL Hct 37.5 (34.0-46.0) % MCV 63.9 L (80.0-100.0) fL MCH 20.4 L (25.0-35.0) pg MCHC 31.9 (31.0-37.0) g/dL RDW 16.4 H (11.5-15.5) % Plt Count 222 (150-450) k/uL MPV 7.5 Neutrophils % 82 % Lymphocytes % 13 % Monocytes % 4 % Eosinophils % 1 % Basophils % 1 % Neutrophils # 11.5 H (1.3-7.7) k/uL Lymphocytes # 1.8 (1.0-4.8) k/uL Monocytes # 0.5 (0-1.0) k/uL Eosinophils # 0.1 (0-0.7) k/uL Basophils # 0.1 (0-0.2) k/uL Hypochromasia Slight Poikilocytosis Slight Anisocytosis Slight Microcytosis Marked PT 10.7 (9.0-12.0) sec INR 1.0 (<1.2) APTT 17.8 L (22.0-30.0) sec Sodium 136 L (137-145) mmol/L Potassium 3.7 (3.5-5.1) mmol/L Chloride 99 (98-107) mmol/L Carbon Dioxide 24 (22-30) mmol/L Anion Gap 13 mmol/L BUN 21 H (7-17) mg/dL Creatinine 0.83 (0.52-1.04) mg/dL Est GFR (CKD-EPI)AfAm 79 (>60 ml/min/1.73 sqM) Est GFR (CKD-EPI)NonAf 68 (>60 ml/min/1.73 sqM) Glucose 250 H (74-99) mg/dL Calcium 10.1 (8.4-10.2) mg/dL Magnesium 1.8 (1.6-2.3) mg/dL Total Bilirubin 1.1 (0.2-1.3) mg/dL AST 41 H (14-36) U/L ALT 33 (4-34) U/L Alkaline Phosphatase 168 H (38-126) U/L Creatine Kinase 52 (30-135) U/L CK-MB (CK-2) (0.0-2.4) ng/mL Troponin I (0.000-0.034) ng/mL NT-Pro-B Natriuret Pep pg/mL Total Protein 7.9 (6.3-8.2) g/dL Albumin 4.8 (3.5-5.0) g/dL Lipase 105 (23-300) U/L 03/21/21 03/21/21 Range/Units 01:20 01:20 WBC (3.8-10.6) k/uL RBC (3.80-5.40) m/uL Hgb (11.4-16.0) gm/dL Hct (34.0-46.0) % MCV (80.0-100.0) fL MCH (25.0-35.0) pg MCHC (31.0-37.0) g/dL RDW (11.5-15.5) % Plt Count (150-450) k/uL MPV Neutrophils % % Lymphocytes % % Monocytes % % Eosinophils % % Basophils % % Neutrophils # (1.3-7.7) k/uL Lymphocytes # (1.0-4.8) k/uL Monocytes # (0-1.0) k/uL Eosinophils # (0-0.7) k/uL Basophils # (0-0.2) k/uL Hypochromasia Poikilocytosis Anisocytosis Microcytosis PT (9.0-12.0) sec INR (<1.2) APTT (22.0-30.0) sec Sodium (137-145) mmol/L Potassium (3.5-5.1) mmol/L Chloride (98-107) mmol/L Carbon Dioxide (22-30) mmol/L Anion Gap mmol/L BUN (7-17) mg/dL Creatinine (0.52-1.04) mg/dL Est GFR (CKD-EPI)AfAm (>60 ml/min/1.73 sqM) Est GFR (CKD-EPI)NonAf (>60 ml/min/1.73 sqM) Glucose (74-99) mg/dL Calcium (8.4-10.2) mg/dL Magnesium (1.6-2.3) mg/dL Total Bilirubin (0.2-1.3) mg/dL AST (14-36) U/L ALT (4-34) U/L Alkaline Phosphatase (38-126) U/L Creatine Kinase (30-135) U/L CK-MB (CK-2) 1.7 (0.0-2.4) ng/mL Troponin I <0.012 (0.000-0.034) ng/mL NT-Pro-B Natriuret Pep 581 pg/mL Total Protein (6.3-8.2) g/dL Albumin (3.5-5.0) g/dL Lipase (23-300) U/L - EKG Data -: EKG Interpreted by Me (EKG shows a paced rhythm of 66 DE 28 QRS 136 QTc 550) Disposition Clinical Impression: Congestive heart failure, Acute pulmonary edema, Chest pain Disposition: ADMITTED IP TO THIS HOSP Condition: Fair Is patient prescribed a controlled substance at d/c from ED?: No Referrals: Carlos Tabor MD [Primary Care Provider] - 1-2 days
--- NOTE | 2021-03-21 01:32 | XR ---
EXAMINATION TYPE: XR chest 1V DATE OF EXAM: 03/21/2021 COMPARISON: 07/09/2017 HISTORY: Altered mental status TECHNIQUE: AP upright 2 views FINDINGS: Heart is enlarged. There is mild pulmonary congestion. There are sternal wires. There is le ft axillary pacemaker. Bony thorax appears intact. IMPRESSION: Congestive heart failure. Small pleural effusions. Pulmonary congestion increased compared to old exa m.
[2021-03-21 01:36] LABS: Anisocytosis Slight; Basophils # (A) 0.1 k/uL (0-0.2); Basophils % (A) 1 %; Eosinophils # (A) 0.1 k/uL (0-0.7); Eosinophils % (A) 1 %; HCT 37.5 % (34.0-46.0); Hypochromasia Slight; Lymphocytes # (A) 1.8 k/uL (1.0-4.8); Lymphocytes % (A) 13 %; MCH 20.4 pg (25.0-35.0); MCHC 31.9 g/dL (31.0-37.0); MCV 63.9 fL (80.0-100.0); Mean Platelet Volume 7.5; Microcytosis Marked; Monocytes # (A) 0.5 k/uL (0-1.0); Monocytes % (A) 4 %; Neutrophils # (A) 11.5 k/uL (1.3-7.7); Neutrophils % (A) 82 %; Platelet Count 222 k/uL (150-450); Poikilocytosis Slight; RBC 5.87 m/uL (3.80-5.40); RDW 16.4 % (11.5-15.5); WBC 14.1 k/uL (3.8-10.6)
[2021-03-21 01:52] LABS: Prothrombin Time 10.7 sec (9.0-12.0)
[2021-03-21 01:53] LABS: Albumin 4.8 g/dL (3.5-5.0); Calcium 10.1 mg/dL (8.4-10.2); Magnesium 1.8 mg/dL (1.6-2.3); Potassium 3.7 mmol/L (3.5-5.1); Total Bilirubin 1.1 mg/dL (0.2-1.3); Total Protein 7.9 g/dL (6.3-8.2)
[2021-03-21 01:57] LABS: Partial Thromboplastin Time 17.8 sec (22.0-30.0)
[2021-03-21 02:02] LABS: Creatine Kinase MB 1.7 ng/mL (0.0-2.4); Troponin I <0.012 ng/mL (0.000-0.034)
[2021-03-21] MEDS ORDERED: ONDANSETRON 4 MG/2 ML VIAL IVP PRN (02:31)
[2021-03-21] MEDS ORDERED: NALOXONE 0.4 MG/ML 1 ML VIAL IV PRN (02:31)
[2021-03-21] MEDS ORDERED: MORPHINE SULFATE 4 MG/ML SYRINGE IV PRN (02:31)
[2021-03-21] MEDS: FUROSEMIDE 10 MG/ML 4 ML VIAL IV SCH ×2 (03:39→15:51)
--- NOTE | 2021-03-21 11:25 | P.CRDCN ---
History of Present Illness History of present illness: HISTORY OF PRESENTING ILLNESS This is a pleasant 80-year-old female past medical history significant for nonobstructive coronary artery disease, severe stenosis status post aortic valve replacement in 2017, sick sinus syndrome status post dual chamber pacemaker insertion in 2017 ([employer]), CVA, type 1 diabetes, hyperlipidemia, paroxysmal atrial fibrillation, hypertension, dyslipidemia. She follows in the office with Dr. Lazaro. We have been asked to see in consultation for congestive heart failure and chest pain. Patient presents to the emergency department with complaints of shortness of breath and chest pain. Patient states that yesterday after she took a nap she started to have anterior and right-sided chest pain across her entire chest. She also endorses some back pain. Her pain is aggravated by movement and taking a deep breath. It is also aggravated by palpation to the chest. Alleviated by resting. She had associated nausea, emesis and shortness of breath. She endorses increased shortness of breath recently. She feels short of breath with activities. She denies injury to her chest or back. Denies fall. She denies symptom of orthopnea or PND or LE edema. EKG revealed paced rhythm. Laboratory data review WBC 14.1, hemoglobin 12, platelets 222, sodium 136, potassium 3.7, BUN 21, serum creatinine 0.8, BNP 581, troponin negative 3. Chest x-ray revealed congestive heart failure. Small pleural effusions. Increased pulmonary congestion. Patient started on IV Lasix 40mg BID. Patient with 950mL urine output DIAGNOSTICS Last Cardiac Catheterization 12/2016 which revealed no significant obstructive CAD. Mild constipation in the coronary arteries. Severe aortic stenosis. Patient underwent aortic valve replacement in 03/2017 Most recent echocardiogram 12/2018 revealed EF of 55%, stable aortic valve prosthesis. No pulmonary hypertension. Current home cardiac medications include metoprolol tartrate 100 mg twice a day, losartan 50 mg daily, amlodipine 5 mg daily, Lasix 20 mg daily, atorvastatin 40 mg daily, Eliquis 5 mg twice a day REVIEW OF SYSTEMS At the time of my exam: CONSTITUTIONAL: Denies fever or chills. CARDIOVASCULAR: +chest pain, +shortness of breath +BRYANT Denies orthopnea, PND or palpitations. RESPIRATORY: Denies cough. GASTROINTESTINAL: Denies abdominal pain, diarrhea, constipation, nausea or vomiting. MUSCULOSKELETAL:+ back pain NEUROLOGIC: Denies numbness, tingling, headacbe or weakness. ENDOCRINE: Denies fatigue, weight change, polydipsia or polyurina. GENITOURINARY: Denies burning, hematuria or urgency with micturation. HEMATOLOGIC: Denies history of anemia or bleeding. PHYSICAL EXAMINATION Blood pressure 156/70 heart rate 80 afebrile and maintaining oxygen saturation 98% 2 L nasal cannula CONSTITUTIONAL: No apparent distress. HEENT: Head is normocephalic. Pupils are equal, round. Sclerae anicteric. Mucous membranes of the mouth are moist. No JVD. No carotid bruit. CHEST EXAMINATION: Lungs mild crackles bilaterally. Chest wall tenderness is noted on palpation and wilth deep breathing. HEART EXAMINATION: Regular rate and rhythm. S1, S2 heard. Systolic murmur noted, No gallops or rub. ABDOMEN: Soft, nontender. Positive bowel sounds. EXTREMITIES: 2+ peripheral pulses, no lower extremity edema and no calf tenderness. NEUROLOGIC EXAMINATION: Patient is awake, alert and oriented x3. ASSESSMENT Shortness of breath, normal BNP Chest pain, atypical, appears muscukoskeletal in nature, acute coronary syndrome ruled out Nonobstructive coronary artery disease Severe stenosis status post aortic valve replacement in 2017 Sick sinus syndrome status post dual chamber pacemaker insertion in 2017 ([employer]) CVA Type 1 diabetes Hyperlipidemia Paroxysmal atrial fibrillation on Eliquis Hypertension Dyslipidemia. PLAN An acute coronary event has been ruled out with no EKG evidence of ischemia and negative cardiac enzymes. Obtain 2D echocardiogram and doppler study to assess cardiac structure and function. Continue IV Diuresis for today Monitor renal function and electrolytes I/Os, daily weights Continue home cardiac medications Follow up with Dr. Lazaro, on discharge Further recommendations based on clinical course Thank you kindly for this consultation. Nurse Practitioner note has been reviewed, I agree with a documented findings and plan of care. Patient was seen and examined. 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 no current home care sevices. has a cane/walker glucometer, insulin pump. Past Alcohol Use History: None Reported Past Drug Use History: None Reported - Past Family History Mother Family Medical History: Cancer Son(s) Family Medical History: Rheumatoid Arthritis (RA) Additional Family Medical History / Comment(s): RHEUMATOID ARTHRITIS Father History Unknown: Yes Family Medical History: No Reported History Additional Family Medical History / Comment(s): from kidney failure Medications and Allergies Home Medications Medication Instructions Recorded Confirmed Type amLODIPine [Norvasc] 5 mg PO DAILY 07/17/16 03/21/21 History Atorvastatin [Lipitor] 40 mg PO HS tab 03/25/17 03/21/21 Rx Metoprolol Tartrate [Lopressor] 100 mg PO BID 07/09/17 03/21/21 History Apixaban [Eliquis] 5 mg PO BID 03/21/21 03/21/21 History Furosemide [Lasix] 20 mg PO DAILY 03/21/21 03/21/21 History Insulin Aspart (For Pump) [NovoLOG 0.01 unit SQ-PUMP CONTINUOUS 03/21/21 03/21/21 History (For Pump)] Losartan Potassium [Cozaar] 50 mg PO DAILY 03/21/21 03/21/21 History Prednisolone Acetate/Pf 2 drops RIGHT EYE BID 03/21/21 03/21/21 History [Prednisolone Acet 1% Eye Drop] Allergies Allergy/AdvReac Type Severity Reaction Status Date / Time adhesive tape Allergy Rash/Hives Verified 03/21/21 07:03 codeine Allergy Rash/Hives Verified 03/21/21 07:02 milk Allergy Unknown Verified 03/21/21 07:02 orange Allergy Rash/Hives Verified 03/21/21 07:02 metformin [From Glucophage] AdvReac Nausea & Verified 03/21/21 07:02 Vomiting Penicillins AdvReac Nausea Verified 03/21/21 07:02 ANESTHESIA (UNKNOWN) Allergy Unknown Uncoded 03/21/21 07:02 Physical Exam Vitals: Vital Signs Temp Pulse Resp BP Pulse Ox 03/21/21 06:00 97.9 F 71 16 126/59 95 03/21/21 02:49 59 L 16 149/74 98 03/21/21 01:29 18 03/21/21 01:10 84 22 149/84 98 Intake and Output 03/20/21 03/21/21 03/21/21 22:59 06:59 14:59 Output Total 950 Balance -950 Output: Urine 950 Uretheral (Cuellar) 200 Other: Weight 72.575 kg Results 03/21/21 01:20 03/21/21 01:20 Cardiac Enzymes 03/21/21 03/21/21 03/21/21 Range/Units 01:20 01:20 04:40 AST 41 H (14-36) U/L CK-MB (CK-2) 1.7 (0.0-2.4) ng/mL Troponin I <0.012 <0.012 (0.000-0.034) ng/mL Coagulation 03/21/21 Range/Units 01:20 PT 10.7 (9.0-12.0) sec APTT 17.8 L (22.0-30.0) sec CBC 03/21/21 Range/Units 01:20 WBC 14.1 H (3.8-10.6) k/uL RBC 5.87 H (3.80-5.40) m/uL Hgb 12.0 (11.4-16.0) gm/dL Hct 37.5 (34.0-46.0) % Plt Count 222 (150-450) k/uL Comprehensive Metabolic Panel 03/21/21 Range/Units 01:20 Sodium 136 L (137-145) mmol/L Potassium 3.7 (3.5-5.1) mmol/L Chloride 99 (98-107) mmol/L Carbon Dioxide 24 (22-30) mmol/L BUN 21 H (7-17) mg/dL Creatinine 0.83 (0.52-1.04) mg/dL Glucose 250 H (74-99) mg/dL Calcium 10.1 (8.4-10.2) mg/dL AST 41 H (14-36) U/L ALT 33 (4-34) U/L Alkaline Phosphatase 168 H (38-126) U/L Total Protein 7.9 (6.3-8.2) g/dL Albumin 4.8 (3.5-5.0) g/dL Current Medications Generic Name Dose Route Start Last Admin Trade Name Freq PRN Reason Stop Dose Admin Furosemide 40 mg 03/21/21 02:45 03/21/21 03:39 Furosemide 10 Mg/Ml 4 Ml Vial IV 40 mg Q12H DIMAS Administration Sodium Chloride 1,000 mls @ 100 mls/hr 03/21/21 00:35 03/21/21 01:14 Saline 0.9% IV 03/21/21 10:34 Not Given .Q10H STA Morphine Sulfate 4 mg 03/21/21 02:31 03/21/21 02:44 Morphine Sulfate 4 Mg/Ml Syringe IV 4 mg Q4HR PRN Administration Severe Pain Naloxone HCl 0.2 mg 03/21/21 02:31 Naloxone 0.4 Mg/Ml 1 Ml Vial IV Q2M PRN Opioid Reversal Ondansetron HCl 4 mg 03/21/21 02:31 Ondansetron 4 Mg/2 Ml Vial IVP Q8HR PRN Nausea And Vomiting Intake and Output 03/20/21 03/21/21 03/21/21 22:59 06:59 14:59 Output Total 950 Balance -950 Output: Urine 950 Uretheral (Cuellar) 200 Other: Weight 72.575 kg 03/21/21 01:20 03/21/21 01:20
[2021-03-21 11:52] LABS: Glucose,Whole Blood 235 mg/dL (75-99)
[2021-03-21] MEDS: amLODIPine 5 MG TAB PO SCH (11:59)
[2021-03-21] MEDS: LOSARTAN 50 MG TAB PO SCH (11:59)
[2021-03-21 19:25] LABS: Glucose,Whole Blood 447 mg/dL (75-99)
[2021-03-21] MEDS ORDERED: VANCOMYCIN IV PER PHARMACY 1 EACH MISC MISCELLANE PRN (19:45)
[2021-03-21] MEDS ORDERED: INSULIN ASPART (NovoLOG) 100 UNIT/ML VIAL SQ ONE (19:50)
[2021-03-21] MEDS ORDERED: INSULIN DETEMIR (LEVEMIR) 100 UNIT/ML SYR SQ SCH (19:52)
[2021-03-21 20:01] LABS: Appearance,Urine Clear (Clear); Bilirubin,Urine Negative (Negative); Blood,Urine Negative (Negative); Color,Urine Light Yellow; Glucose,Urine (UA) 4+ (Negative); Ketones,Urine Negative (Negative); Leukocyte Esterase,Urine Small (Negative); Mucus,Urine Rare /hpf; Nitrite,Urine Negative (Negative); Protein,Urine Negative (Negative); RBC,Urine 1 /hpf (0-5); Specific Gravity,Urine 1.008 (1.001-1.035); Squamous Epithelial Cell,Urine <1 /hpf (0-4); Urobilinogen,Urine <2.0 mg/dL (<2.0); WBC,Urine 3 /hpf (0-5)
[2021-03-21] MEDS: ACETAMINOPHEN TAB 325 MG TAB PO PRN (20:13)
[2021-03-21] MEDS: APIXABAN 5 MG TAB PO SCH (20:14)
[2021-03-21] MEDS: PIPERACILLIN-TAZOBACTAM 3.375 GM in SODIUM CHLORIDE 0.9% 100 ML IVPB SCH (20:14)
[2021-03-21] MEDS: ATORVASTATIN 40 MG TAB PO SCH (20:14)
[2021-03-21] MEDS: METOPROLOL TARTRATE 50 MG TAB PO SCH (20:15)
[2021-03-21] MEDS: VANCOMYCIN 1,500 MG in SODIUM CHLORIDE 0.9% 250 ML IVPB SCH (23:07)
[2021-03-22] MEDS: FUROSEMIDE 10 MG/ML 4 ML VIAL IV SCH ×2 (03:23→15:27)
[2021-03-22 03:37] LABS: Glucose,Whole Blood 297 mg/dL (75-99)
[2021-03-22] MEDS: PIPERACILLIN-TAZOBACTAM 3.375 GM in SODIUM CHLORIDE 0.9% 100 ML IVPB SCH (04:52)
[2021-03-22 07:23] LABS: Glucose,Whole Blood 293 mg/dL (75-99)
[2021-03-22] MEDS: APIXABAN 5 MG TAB PO SCH ×2 (09:46→20:51)
[2021-03-22] MEDS: amLODIPine 5 MG TAB PO SCH (09:46)
[2021-03-22] MEDS: INSULIN ASPART (NovoLOG) 100 UNIT/ML VIAL SQ SCH ×4 (09:46→20:50)
[2021-03-22] MEDS: METOPROLOL TARTRATE 50 MG TAB PO SCH ×2 (09:46→20:51)
[2021-03-22] MEDS: LOSARTAN 50 MG TAB PO SCH (09:46)
[2021-03-22] MEDS: VANCOMYCIN 1,500 MG in SODIUM CHLORIDE 0.9% 250 ML IVPB SCH (09:47)
--- NOTE | 2021-03-22 10:28 | P.HPIM ---
History of Present Illness H&P Date: 03/21/21 Chief Complaint: Chest pain 72 white female with known history diabetes who complains of significant chest pressure. The patient states some mild nausea. Symptoms of angina are noted. She is a non-smoker. No significant 3 or chills stated. The patient states the pain has been worsening in frequency. No syncopal episode noted. 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 no current home care sevices. has a cane/walker glucometer, insulin pump. Smoking Status: Never smoker Past Alcohol Use History: None Reported Past Drug Use History: None Reported - Past Family History Mother Family Medical History: Cancer Son(s) Family Medical History: Rheumatoid Arthritis (RA) Additional Family Medical History / Comment(s): RHEUMATOID ARTHRITIS Father History Unknown: Yes Family Medical History: No Reported History Additional Family Medical History / Comment(s): from kidney failure Medications and Allergies Home Medications Medication Instructions Recorded Confirmed Type amLODIPine [Norvasc] 5 mg PO DAILY 07/17/16 03/21/21 History Atorvastatin [Lipitor] 40 mg PO HS tab 03/25/17 03/21/21 Rx Metoprolol Tartrate [Lopressor] 100 mg PO BID 07/09/17 03/21/21 History Apixaban [Eliquis] 5 mg PO BID 03/21/21 03/21/21 History Furosemide [Lasix] 20 mg PO DAILY 03/21/21 03/21/21 History Insulin Aspart (For Pump) [NovoLOG 0.01 unit SQ-PUMP CONTINUOUS 03/21/21 03/21/21 History (For Pump)] Losartan Potassium [Cozaar] 50 mg PO DAILY 03/21/21 03/21/21 History Prednisolone Acetate/Pf 2 drops RIGHT EYE BID 03/21/21 03/21/21 History [Prednisolone Acet 1% Eye Drop] Allergies Allergy/AdvReac Type Severity Reaction Status Date / Time adhesive tape Allergy Rash/Hives Verified 03/21/21 07:03 codeine Allergy Rash/Hives Verified 03/21/21 07:02 milk Allergy Unknown Verified 03/21/21 07:02 orange Allergy Rash/Hives Verified 03/21/21 07:02 metformin [From Glucophage] AdvReac Nausea & Verified 03/21/21 07:02 Vomiting Penicillins AdvReac Nausea Verified 03/21/21 07:02 ANESTHESIA (UNKNOWN) Allergy Unknown Uncoded 03/21/21 07:02 Physical Exam Vitals: Vital Signs Temp Pulse Pulse Resp BP BP Pulse Ox 03/22/21 07:10 98.5 F 70 16 101/59 91 L 03/22/21 02:00 64 18 03/22/21 01:36 97.7 F 64 18 109/60 93 L 03/21/21 20:00 89 20 03/21/21 19:11 100.7 F H 89 20 125/67 90 L 03/21/21 16:55 98.5 F 90 16 145/70 88 L 03/21/21 15:50 98.9 F 80 18 129/64 94 L 03/21/21 14:00 90 16 03/21/21 11:51 98 F 77 18 126/68 92 L Intake and Output 03/21/21 03/22/21 03/22/21 22:59 06:59 14:59 Output Total 1100 Balance -1100 Output: Urine 1100 Other: Voiding Method Indwelling Catheter Indwelling Catheter Weight 79.37 kg 79 kg - Constitutional General appearance: no acute distress - EENT Eyes: EOMI - Neck Neck: no lymphadenopathy - Respiratory Respiratory: bilateral: CTA - Cardiovascular Rhythm: regular Heart sounds: normal: S1, S2 Abnormal Heart Sounds: no S3 Gallop - Gastrointestinal General gastrointestinal: soft, no tenderness - Neurologic Neurologic: CNII-XII intact Results CBC & Chem 7: 03/21/21 01:20 03/21/21 01:20 Labs: Abnormal Lab Results - Last 24 Hours (Table) 03/21/21 03/21/21 03/21/21 Range/Units 11:51 19:22 Unknown POC Glucose (mg/dL) 235 H 447 H (75-99) mg/dL Urine Glucose (UA) 4+ H (Negative) Ur Leukocyte Esterase Small H (Negative) Urine Mucus Rare H (None) /hpf 03/22/21 03/22/21 Range/Units 03:35 07:12 POC Glucose (mg/dL) 297 H 293 H (75-99) mg/dL Urine Glucose (UA) (Negative) Ur Leukocyte Esterase (Negative) Urine Mucus (None) /hpf Thrombosis Risk Factor Assmnt - Choose All That Apply Any of the Below Risk Factors Present?: No Other Risk Factors: No Each Risk Factor Represents 3 Points: Age 75 years or older Other congenital or acquired thrombophilia - If yes, enter type in comment: No Thrombosis Risk Factor Assessment Total Risk Factor Score: 3 Thrombosis Risk Factor Assessment Level: Very Low Risk Assessment and Plan (1) Chest pain Current Visit: Yes Status: Acute Code(s): R07.9 - CHEST PAIN, UNSPECIFIED SNOMED Code(s): 43656059 (2) Asthma Current Visit: No Status: Acute Code(s): J45.909 - UNSPECIFIED ASTHMA, UNCOMPLICATED SNOMED Code(s): 826298567 (3) Diabetes mellitus, insulin dependent (IDDM), controlled Current Visit: No Status: Acute Code(s): E11.9 - TYPE 2 DIABETES MELLITUS WITHOUT COMPLICATIONS; Z79.4 - CAE ENGINEER (CURRENT) USE OF INSULIN SNOMED Code(s): 08866268 Plan: Rule out myocardial infarction. The patient will be placed on appropriate sliding scale. Reconcile indications. Consult cardiology. Dr. Berumen's group will be covering for the weekend.
--- NOTE | 2021-03-22 11:43 | P.CNPUL ---
History of Present Illness Consult date: 03/22/21 Reason for consult: chest pain History of present illness: 80-year-old female patient admitted to the hospital because of chest pain. The pain was mainly across the left anterior chest area. It was all day and lasted for almost 24 hours on the day of his admission and she also had pain overnight. Not related to breathing.. She is known to have a nonocclusive coronary artery disease, previous cardiac catheterization from December 2016 showed no significant coronary artery disease. She is also known to have severe aortic stenosis and she has undergone aortic valve replacement back in 2016 I was involved in her care back then. She has also history of sick sinus syndrome and she has chamber pacemaker in place. The patient had an echocardiogram from December 2018 showing stable aortic valve prosthesis and normal ejection fraction. Currently, she is afebrile. No cough or sputum production. No hemoptysis or pleurisy. She had some increased swelling lower extremity and she was started on IV Lasix. She was also given a combination of Zosyn and Levaquin. Chest x-ray showing some cardiomegaly with mild pulmonary vascular congestion. She is on room air oxygen. She is sitting up on a chair and she is calm and comfortable. No rece nt pneumonias. Review of Systems Constitutional: Denies chills, Denies fever Eyes: denies as per HPI, denies blurred vision, denies bulging eye, denies decreased vision, denies diplopia, denies discharge, denies dry eye, denies irritation, denies itching, denies pain, denies photophobia, denies loss of peripheral vision, denies loss of vision, denies tunnel vision/blind spots Ears: deny: decreased hearing, ear discharge, earache, tinnitus Ears, nose, mouth and throat: Reports as per HPI Breasts: absent: as per HPI, change in shape, gynecomastia, masses, nipple discharge, pain, skin changes, swelling Cardiovascular: Reports chest pain, Reports decreased exercise tolerance, Reports dyspnea on exertion Respiratory: Reports as per HPI Gastrointestinal: Reports as per HPI Genitourinary: Reports as per HPI Menstruation: Reports as per HPI Musculoskeletal: Reports as per HPI, Reports low back pain Musculoskeletal: bilateral: ankle swelling, absent: ankle pain, ankle stiffness, as per HPI, elbow pain, elbow stiffness, elbow swelling, foot pain, foot stiffness, foot swelling, hand pain, hand stiffness, hand swelling, hip pain, hip stiffness, hip swelling, knee pain, knee stiffness, knee swelling, shoulder pain, shoulder stiffness, shoulder swelling, wrist pain, wrist stiffness, wrist swelling Integumentary: Reports as per HPI Neurological: Reports as per HPI (Difficulties in speech and this occurred or lying a previous CVA) Psychiatric: Reports as per HPI Endocrine: Reports as per HPI Hematologic/Lymphatic: Reports as per HPI Allergic/Immunologic: Reports as per HPI Past Medical History Past Medical History: Coronary Artery Disease (CAD), Diabetes Mellitus, Hypertension Additional Past Medical History / Comment(s): CAD, severe aortic stenosis with a ortic valve replacement, sick sinus syndrome with a previous pacemaker insertion, previous history of CVA, chronic back pain, neuropathy, scoliosis, endometriosis, and a history of brain concussion and diabetes mellitus. History of Any Multi-Drug Resistant Organisms: None Reported Past Surgical History: Appendectomy, Breast Surgery, Cardiac Valve Replacement, Heart Catheterization, Hysterectomy, Joint Replacement, Pacemaker, Tonsillectomy Additional Past Surgical History / Comment(s): aortic valve replacement, had chest tube for pleural effusion post replacment. 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 no current home care sevices. has a cane/walker glucometer, insulin pump. Smoking Status: Never smoker Past Alcohol Use History: None Reported Past Drug Use History: None Reported - Past Family History Mother Family Medical History: Cancer Son(s) Family Medical History: Rheumatoid Arthritis (RA) Additional Family Medical History / Comment(s): RHEUMATOID ARTHRITIS Father History Unknown: Yes Family Medical History: No Reported History Additional Family Medical History / Comment(s): from kidney failure Medications and Allergies Home Medications Medication Instructions Recorded Confirmed Type amLODIPine [Norvasc] 5 mg PO DAILY 07/17/16 03/21/21 History Atorvastatin [Lipitor] 40 mg PO HS tab 03/25/17 03/21/21 Rx Metoprolol Tartrate [Lopressor] 100 mg PO BID 07/09/17 03/21/21 History Apixaban [Eliquis] 5 mg PO BID 03/21/21 03/21/21 History Furosemide [Lasix] 20 mg PO DAILY 03/21/21 03/21/21 History Insulin Aspart (For Pump) [NovoLOG 0.01 unit SQ-PUMP CONTINUOUS 03/21/21 03/21/21 History (For Pump)] Losartan Potassium [Cozaar] 50 mg PO DAILY 03/21/21 03/21/21 History Prednisolone Acetate/Pf 2 drops RIGHT EYE BID 03/21/21 03/21/21 History [Prednisolone Acet 1% Eye Drop] Allergies Allergy/AdvReac Type Severity Reaction Status Date / Time adhesive tape Allergy Rash/Hives Verified 03/21/21 07:03 codeine Allergy Rash/Hives Verified 03/21/21 07:02 milk Allergy Unknown Verified 03/21/21 07:02 orange Allergy Rash/Hives Verified 03/21/21 07:02 metformin [From Glucophage] AdvReac Nausea & Verified 03/21/21 07:02 Vomiting Penicillins AdvReac Nausea Verified 03/21/21 07:02 ANESTHESIA (UNKNOWN) Allergy Unknown Uncoded 03/21/21 07:02 Physical Exam Vitals: Vital Signs Temp Pulse Pulse Resp BP BP Pulse Ox 03/22/21 07:10 98.5 F 70 16 101/59 91 L 03/22/21 02:00 64 18 03/22/21 01:36 97.7 F 64 18 109/60 93 L 03/21/21 20:00 89 20 03/21/21 19:11 100.7 F H 89 20 125/67 90 L 03/21/21 16:55 98.5 F 90 16 145/70 88 L 03/21/21 15:50 98.9 F 80 18 129/64 94 L 03/21/21 14:00 90 16 03/21/21 11:51 98 F 77 18 126/68 92 L Intake and Output 03/21/21 03/22/21 03/22/21 22:59 06:59 14:59 Output Total 1100 Balance -1100 Output: Urine 1100 Other: Voiding Method Indwelling Catheter Indwelling Catheter Weight 79.37 kg 79 kg CONSTITUTIONAL: No apparent distress. HEENT: Head is normocephalic. Pupils are equal, round. Sclerae anicteric. Mucous membranes of the mouth are moist. No JVD. No carotid bruit. CHEST EXAMINATION: Lungs mild crackles bilaterally. Chest wall tenderness is noted on palpation and wilth deep breathing. HEART EXAMINATION: Regular rate and rhythm. S1, S2 heard. Systolic murmur noted, No gallops or rub. ABDOMEN: Soft, nontender. Positive bowel sounds. EXTREMITIES: 2+ peripheral pulses, no lower extremity edema and no calf tenderness. NEUROLOGIC EXAMINATION: Patient is awake, alert and oriented x3. Results - Laboratory Findings CBC and BMP: 03/21/21 01:20 03/21/21 01:20 PT/INR, D-dimer PT 10.7 sec (9.0-12.0) 03/21/21 01:20 INR 1.0 (<1.2) 03/21/21 01:20 Abnormal lab findings: Abnormal Labs 03/21/21 03/21/21 03/21/21 01:20 01:20 01:20 WBC 14.1 H RBC 5.87 H MCV 63.9 L MCH 20.4 L RDW 16.4 H Neutrophils # 11.5 H APTT 17.8 L Sodium 136 L BUN 21 H Glucose 250 H POC Glucose (mg/dL) AST 41 H Alkaline Phosphatase 168 H Urine Glucose (UA) Ur Leukocyte Esterase Urine Mucus 03/21/21 03/21/21 03/21/21 11:51 19:22 Unknown WBC RBC MCV MCH RDW Neutrophils # APTT Sodium BUN Glucose POC Glucose (mg/dL) 235 H 447 H AST Alkaline Phosphatase Urine Glucose (UA) 4+ H Ur Leukocyte Esterase Small H Urine Mucus Rare H 03/22/21 03/22/21 03:35 07:12 WBC RBC MCV MCH RDW Neutrophils # APTT Sodium BUN Glucose POC Glucose (mg/dL) 297 H 293 H AST Alkaline Phosphatase Urine Glucose (UA) Ur Leukocyte Esterase Urine Mucus - Diagnostic Findings Chest x-ray: image reviewed Assessment and Plan Plan: 1 chest pain currently under investigation, based on a catheterization from 2017, the patient had no significance CAD. Current EKG and cardiac enzymes are negative. 2 aortic valve stenosis post AVR and the patient has a preserved LV function 3 history of sick sinus syndrome post pacemaker insertion 4 history of CVA with some residual deficits with speech 5 diabetes mellitus 6 hypertension 7 hyperlipidemia 8 proximity fibrillation 9 scoliosis Plan Echocardiogram Continue diuretics Stop Zosyn and Levaquin Monitor electrolytes and blood sugar for medicine Cardiology consultation
[2021-03-22 12:03] LABS: Glucose,Whole Blood 448 mg/dL (75-99)
[2021-03-22 13:28] LABS: Basophils # (A) 0.06 X 10*3/uL (0.00-0.10); Basophils % (A) 0.5 %; Eosinophils # (A) 0.15 X 10*3/uL (0.04-0.35); Eosinophils % (A) 1.2 %; HCT 34.3 % (37.2-46.3); HGB 10.4 g/dL (12.0-15.0); Lymphocytes # (A) 1.87 X 10*3/uL (0.90-5.00); Lymphocytes % (A) 15.1 %; MCH 19.5 pg (27.0-32.0); MCHC 30.3 g/dL (32.0-37.0); MCV 64.2 fL (80.0-97.0); Mean Platelet Volume 10.9 fL (9.5-12.2); Microcytosis (M) 2+; Monocytes # (A) 1.19 X 10*3/uL (0.20-1.00); Monocytes % (A) 9.6 %; Neutrophils # (A) 9.04 X 10*3/uL (1.80-7.70); Neutrophils % (A) 73.2 %; Platelet Count 207 X 10*3/uL (140-440); RBC 5.34 X 10*6/uL (4.10-5.20); RDW 16.8 % (11.5-14.5); WBC 12.36 X 10*3/uL (4.50-10.00)
--- NOTE | 2021-03-22 13:46 | P.CRDCN ---
History of Present Illness Consult date: 03/22/21 Requesting physician: Mitchel Queen Consult reason: congestive heart failure Chief complaint: Congestive heart failure, chest pain History of present illness: This is Jean Montilla NP dictating a progress note on this patient on behalf of Dr. Ledesma. The patient was interviewed and examined. HPI: Patient is a 72-year-old female who presents to hospital with complaints of chest pain and exacerbation of CHF. She states that this is known to her she's had this happen in the past. She states that she's had congestive heart failure for at least 20 years. She reports at home that she was getting increasingly short of breath along with this chest discomfort. She called EMS and was presented to the hospital. Initial troponins have been negative. BNP is 581. Patient does have a pacemaker. She has no past medical history of coronary artery disease, aortic valve replacement, sick sinus syndrome, status post dual- chamber pacemaker ([employer]), CVA, type 1 diabetes, hyperlipidemia, paroxysmal A. fib, hypertension, dyslipidemia. ROS: [No fever, chills, or rigors] [no cough, phlegm, or expectoration] [no nausea, vomiting, or diarrhea] [no hematuria, dysuria] [no musculoskelatal complaints] [no strokes or seizures] [no skin lesions] EXAMINATION: CARDIOVASCULAR: Heart is regular rate and rhythm, no clicks, murmurs, rubs noted. No peripheral edema noted. Peripheral pulses are present palpable. LUNGS: Clear to auscultation in all lung kerr. No adventitious sounds noted. Chest expansion is symmetrical. No accessory muscle use. REVIEW OF LABS, ECG & MEDICAL DATA: LABS: Hemoglobin was 10.4, PT 10.7, INR 1.0, APTT 17.8, sodium 136, potassium 3.7, magnesium 1.8, CK 52, serial troponins 3 less than 0.012, BNP 581. EKG: Dual-chamber electronic pacing. IMAGING: Echo as been completed and is waiting to be read. IMPRESSION/PLAN: 1. Acute exacerbation of congestive heart failure Continue Lasix twice a day, strict I's and O's, weigh patient daily, low salt/no salt diet, recheck BNP in the morning. Past Medical History Past Medical History: Coronary Artery Disease (CAD), Diabetes Mellitus, Hypertension Additional Past Medical History / Comment(s): CAD, severe aortic stenosis with aortic valve replacement, sick sinus syndrome with a previous pacemaker insertion, previous history of CVA, chronic back pain, neuropathy, scoliosis, endometriosis, and a history of brain concussion and diabetes mellitus. History of Any Multi-Drug Resistant Organisms: None Reported Past Surgical History: Appendectomy, Breast Surgery, Cardiac Valve Replacement, Heart Catheterization, Hysterectomy, Joint Replacement, Pacemaker, Tonsillectomy Additional Past Surgical History / Comment(s): aortic valve replacement, had chest tube for pleural effusion post replacment. 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 no current home care sevices. has a cane/walker glucometer, insulin pump. Smoking Status: Never smoker Past Alcohol Use History: None Reported Past Drug Use History: None Reported - Past Family History Mother Family Medical History: Cancer Son(s) Family Medical History: Rheumatoid Arthritis (RA) Additional Family Medical History / Comment(s): RHEUMATOID ARTHRITIS Father History Unknown: Yes Family Medical History: No Reported History Additional Family Medical History / Comment(s): from kidney failure Medications and Allergies Home Medications Medication Instructions Recorded Confirmed Type amLODIPine [Norvasc] 5 mg PO DAILY 07/17/16 03/21/21 History Atorvastatin [Lipitor] 40 mg PO HS tab 03/25/17 03/21/21 Rx Metoprolol Tartrate [Lopressor] 100 mg PO BID 07/09/17 03/21/21 History Apixaban [Eliquis] 5 mg PO BID 03/21/21 03/21/21 History Furosemide [Lasix] 20 mg PO DAILY 03/21/21 03/21/21 History Insulin Aspart (For Pump) [NovoLOG 0.01 unit SQ-PUMP CONTINUOUS 03/21/21 03/21/21 History (For Pump)] Losartan Potassium [Cozaar] 50 mg PO DAILY 03/21/21 03/21/21 History Prednisolone Acetate/Pf 2 drops RIGHT EYE BID 03/21/21 03/21/21 History [Prednisolone Acet 1% Eye Drop] Allergies Allergy/AdvReac Type Severity Reaction Status Date / Time adhesive tape Allergy Rash/Hives Verified 03/21/21 07:03 codeine Allergy Rash/Hives Verified 03/21/21 07:02 milk Allergy Unknown Verified 03/21/21 07:02 orange Allergy Rash/Hives Verified 03/21/21 07:02 metformin [From Glucophage] AdvReac Nausea & Verified 03/21/21 07:02 Vomiting Penicillins AdvReac Nausea Verified 03/21/21 07:02 ANESTHESIA (UNKNOWN) Allergy Unknown Uncoded 03/21/21 07:02 Physical Exam Vitals: Vital Signs Temp Pulse Pulse Resp BP BP Pulse Ox 03/22/21 07:10 98.5 F 70 16 101/59 91 L 03/22/21 02:00 64 18 03/22/21 01:36 97.7 F 64 18 109/60 93 L 03/21/21 20:00 89 20 03/21/21 19:11 100.7 F H 89 20 125/67 90 L 03/21/21 16:55 98.5 F 90 16 145/70 88 L 03/21/21 15:50 98.9 F 80 18 129/64 94 L 03/21/21 14:00 90 16 Intake and Output 03/21/21 03/22/21 03/22/21 22:59 06:59 14:59 Output Total 1100 Balance -1100 Output: Urine 1100 Other: Voiding Method Indwelling Catheter Indwelling Catheter Weight 79.37 kg 79 kg Results 03/22/21 07:18 03/21/21 01:20 CBC 03/22/21 Range/Units 07:18 WBC 12.36 H (4.50-10.00) X 10*3/uL RBC 5.34 H (4.10-5.20) X 10*6/uL Hgb 10.4 L (12.0-15.0) g/dL Hct 34.3 L (37.2-46.3) % Plt Count 207 (140-440) X 10*3/uL Current Medications Generic Name Dose Route Start Last Admin Trade Name Freq PRN Reason Stop Dose Admin Acetaminophen 650 mg 03/21/21 19:52 03/21/21 20:13 Acetaminophen Tab 325 Mg Tab PO 650 mg Q6HR PRN Administration Fever and/ or Pain Amlodipine Besylate 5 mg 03/21/21 11:30 03/22/21 09:46 Amlodipine 5 Mg Tab PO 5 mg DAILY DIMAS Administration Apixaban 5 mg 03/21/21 21:00 03/22/21 09:46 Apixaban 5 Mg Tab PO 5 mg BID DIMAS Administration Protocol Atorvastatin Calcium 40 mg 03/21/21 21:00 03/21/21 20:14 Atorvastatin 40 Mg Tab PO 40 mg HS DIMAS Administration Furosemide 40 mg 03/21/21 02:45 03/22/21 03:23 Furosemide 10 Mg/Ml 4 Ml Vial IV 40 mg Q12H DIMAS Administration Insulin Aspart 0 unit 03/22/21 07:30 03/22/21 09:46 Insulin Aspart (Novolog) 100 Unit/Ml Vial SQ 5 unit ACHS DIMAS Administration Protocol Insulin Detemir 15 unit 03/21/21 19:52 03/21/21 20:28 Insulin Detemir (Levemir) 100 Unit/Ml Syr SQ 15 unit HS DIMAS Administration Losartan Potassium 50 mg 03/21/21 11:30 03/22/21 09:46 Losartan 50 Mg Tab PO 50 mg DAILY DIMAS Administration Metoprolol Tartrate 100 mg 03/21/21 21:00 03/22/21 09:46 Metoprolol Tartrate 50 Mg Tab PO 100 mg BID DIMAS Administration Morphine Sulfate 4 mg 03/21/21 02:31 03/21/21 02:44 Morphine Sulfate 4 Mg/Ml Syringe IV 4 mg Q4HR PRN Administration Severe Pain Naloxone HCl 0.2 mg 03/21/21 02:31 Naloxone 0.4 Mg/Ml 1 Ml Vial IV Q2M PRN Opioid Reversal Ondansetron HCl 4 mg 03/21/21 02:31 03/21/21 09:22 Ondansetron 4 Mg/2 Ml Vial IVP 4 mg Q8HR PRN Administration Nausea And Vomiting Prednisolone Acetate 2 drops 03/22/21 21:00 Prednisolone Acetate 1% Ophth Drops 5 Ml Btl RIGHT EYE BID [facility] Intake and Output 03/21/21 03/22/21 03/22/21 22:59 06:59 14:59 Output Total 1100 Balance -1100 Output: Urine 1100 Other: Voiding Method Indwelling Catheter Indwelling Catheter Weight 79.37 kg 79 kg 03/22/21 07:18 03/21/21 01:20
[2021-03-22 15:20] LABS: Hemoglobin A1C 8.7 % (4.0-6.0)
--- NOTE | 2021-03-22 15:50 | ECHOF ---
Referral Reason:LV function MEASUREMENTS -------- HEIGHT: 152.4 cm WEIGHT: 72.6 kg BP: 156/70 IVSd: 1.6 cm (0.6 - 1.1) LVIDd: 3.9 cm (3.9 - 5.3) LVPWd: 1.5 cm (0.6 - 1.1) EDV(Teich): 65 ml IVSs: 1.8 cm LVIDs: 2.6 cm LVPWs: 1.5 cm %IVS Thck: 12 % ESV(Teich): 26 ml EF(Teich): 61 % %FS: 32 % SV(Teich): 39 ml RVIDd: 2.0 cm (< 3.3) LALs A4C: 7.4 cm LAAs A4C: 29.5 cm LAESV A-L A4C: 100 ml LAESV MOD A4C: 96 ml LALs A2C: 6.1 cm LAAs A2C: 28.1 cm LAESV A-L A2C: 109 ml LAESV MOD A2C: 108 ml LAESV(A-L): 115 ml LAESV Index (A-L): 67.41 ml/m Ao Diam: 3.1 cm (2.0 - 3.7) LA Diam: 4.4 cm (2.7 - 3.8) AV Cusp: 2.2 cm (1.5 - 2.6) EPSS: 1.0 cm MV E Cooper: 1.18 m/s MV DecT: 199 ms MV Dec Rowan: 5.9 m/s MV A Cooper: 1.44 m/s MV E/A Ratio: 0.82 MV PHT: 58 ms MV PHT: 77 ms MVA By PHT: 2.9 cm MV Vmax: 1.58 m/s MV Vmean: 1.00 m/s MV maxP.04 mmHg MV meanP.42 mmHg MV VTI: 37.5 cm LVOT Vmax: 1.03 m/s LVOT maxP.23 mmHg AV Vmax: 2.22 m/s AV maxP.65 mmHg AV Vmax: 2.28 m/s AV Vmean: 1.60 m/s AV maxP.80 mmHg AV meanP.59 mmHg AV Env.Ti: 284 ms AV VTI: 45.3 cm TR Vmax: 1.78 m/s TR maxP.73 mmHg RAP: 5.00 mmHg RVSP: 17.73 mmHg MV EF SLOPE: 70.78 mm/s (70 - 150) MV EXCURSION: 13.12 mm (> 18.000) FINDINGS -------- Sinus rhythm. This was a technically difficult study with suboptimal apical views. The left ventricular size is normal. There is moderate concentric left ventricular hypertrophy. O verall left ventricular systolic function is low-normal with, an EF between 50 - 55 %. Left ventric ular fillimg pressure cannot be estimated due to severe mitral annular calcification. The right ventricle is normal in size. LA is severely dilated >40 ml/m2 The right atrium was not well visualized. 5.0mg of Lumason was utilized for enhancement of images Interatrial and interventricular septum intact. There is mild aortic valve sclerosis. There is no evidence of aortic regurgitation. There is mild aortic stenosis present. Severe mitral annular calcification present. Moderate mitral regurgitation is present. Mild cassandra l stenosis , with a MVA of 2.9cm (by PHT) Mild tricuspid regurgitation present. There is no evidence of pulmonary hypertension. The right v entricular systolic pressure, as measured by Doppler, is 17.73mmHg. There is no pulmonic regurgitation present. The aortic root size is normal. IVC Not well visulized. There is no pericardial effusion. CONCLUSIONS -------- 1. The left ventricular size is normal. 2. There is moderate concentric left ventricular hypertrophy. 3. Overall left ventricular systolic function is low-normal with, an EF between 50 - 55 %. 4. Left ventricular fillimg pressure cannot be estimated due to severe mitral annular calcification. 5. LA is severely dilated >40 ml/m2 6. There is mild aortic valve sclerosis. 7. There is mild aortic stenosis present. 8. Severe mitral annular calcification present. 9. Moderate mitral regurgitation is present. 10. Mild mitral stenosis. 11. , with a MVA of 2.9cm (by PHT) 12. Mild tricuspid regurgitation present. [employer]: Melba Bhatia [facility]
[2021-03-22 17:07] LABS: Glucose,Whole Blood 345 mg/dL (75-99)
[2021-03-22 20:43] LABS: Glucose,Whole Blood 280 mg/dL (75-99)
[2021-03-22] MEDS: ATORVASTATIN 40 MG TAB PO SCH (20:50)
[2021-03-22] MEDS: prednisoLONE ACETATE 1% OPHTH DROPS 5 ML BTL RIGHT EYE SCH (20:51)
[2021-03-22] MEDS ORDERED: INSULIN DETEMIR (LEVEMIR) 100 UNIT/ML SYR SQ SCH (21:00)
[2021-03-22 22:41] LABS: African American GFR (CKD) 45.5 (60.0-200.0); Albumin 3.9 g/dL (3.80-4.90); Albumin/Globulin Ratio 1.5 (1.60-3.17); Anion Gap 15.2 mmol/L (4.00-12.00); BUN/Creat Ratio 18.46 Ratio (12.00-20.00); Calcium 8.7 mg/dL (8.7-10.3); Carbon Dioxide 27.8 mmol/L (21.6-31.8); Globulin 2.6 g/dL (1.6-3.3); Magnesium 2.2 mg/dL (1.5-2.4); Non-African American GFR(CKD) 39.3 (60.0-200.0); Phosphorus 3.5 mg/dL (2.4-5.1); Potassium 3.4 mmol/L (3.5-5.5); Total Bilirubin 2.1 mg/dL (0.3-1.2); Total Protein 6.5 g/dL (6.2-8.2)
--- NOTE | 2021-03-23 00:36 | P.PN ---
Subjective Progress Note Date: 03/22/21 Principal diagnosis: CHF Exacerbation Ms. Ovalle is a 60-year-old female with a past medical history of coronary artery disease, aortic stenosis status post aortic valve replacement in 2006, sick sinus syndrome has chamber pacemaker in place coming into the hospital with a chief complaint of difficulty in breathing. Patient was blood pressure at home associated with difficulty in breathing so she came into the ER for evaluation. On 03/22/2021 -patient is sitting in bed states that her difficulty in breathing is improving. She has been started on IV Lasix with some improvement in her lower extremity edema. Patient denies having any fevers chills or rigors. No chest pain or palpitations. No abdominal pain nausea vomiting or diarrhea. No dysuria or hematuria. On reviewing the vitals temperature of 98.0, heart rate 63, respiratory 16, blood pressure 122/7 1 saturating at 98% on 3 L of oxygen. Reviewing the labs from this morning white count of 12.3, hemoglobin 10.4, platelets 207, sodium 140, potassium 3.4, chloride 97, bicarb 27, BUN 24, creatinine 1.3. Objective - Vital Signs Vital signs: Vital Signs Temp 98.5 F 03/22/21 07:10 Pulse 70 03/22/21 07:10 Resp 16 03/22/21 07:10 BP 101/59 03/22/21 07:10 Pulse Ox 91 L 03/22/21 07:10 Intake & Output 03/21/21 03/22/21 03/22/21 18:59 06:59 18:59 Output Total 400 1100 Balance -400 -1100 Weight 79.37 kg 79 kg Output: Urine 400 1100 Other: Voiding Method Indwelling Catheter Indwelling Catheter - Exam - Constitutional General appearance: no acute distress - EENT Eyes: EOMI - Neck Neck: no lymphadenopathy - Respiratory Respiratory: bilateral: CTA - Cardiovascular Rhythm: regular Heart sounds: normal: S1, S2 Abnormal Heart Sounds: no S3 Gallop + pedeal edema bilaterally - Gastrointestinal General gastrointestinal: soft, no tenderness - Neurologic Neurologic: CNII-XII intact - Labs CBC & Chem 7: 03/22/21 07:18 03/22/21 07:18 Labs: Abnormal Lab Results - Last 24 Hours (Table) 03/21/21 03/21/21 03/22/21 Range/Units 19:22 Unknown 03:35 POC Glucose (mg/dL) 447 H 297 H (75-99) mg/dL Urine Glucose (UA) 4+ H (Negative) Ur Leukocyte Esterase Small H (Negative) Urine Mucus Rare H (None) /hpf 03/22/21 Range/Units 07:12 POC Glucose (mg/dL) 293 H (75-99) mg/dL Urine Glucose (UA) (Negative) Ur Leukocyte Esterase (Negative) Urine Mucus (None) /hpf Microbiology - Last 24 Hours (Table) 03/21/21 19:45 Urine Culture - Preliminary Urine,Catheterized Assessment and Plan Assessment: ASSESSMENT Acute CHF exacerbation Systolic congestive heart failure Or aortic wall stenosis status post AVR History of sick sinus syndrome status post pacemaker History of CVA with residual speech deficit Hypertension Diabetes mellitus Hyperlipidemia Paroxysmal atrial fibrillation Scoliosis Obesity with BMI of 34 Mild protein calorie malnutrition Chronic low back pain Diabetic neuropathy History of endometriosis History of brain concussion History of hysterectomy History of tonsillectomy History of chest tube for pleural effusion postoperative for replacement History of benign bilateral breast tumors History of bilateral knee replacement PLAN : Patient is currently being treated for CHF exacerbation with IV Lasix and showed significant improvement in her difficulty in breathing. Cardiology, pulmonary on board and following the patient. Patient to be continued on the current medication regimen. Patient's blood pressure running within normal limits and blood sugars elevated around 300s to 400s, will make adjustments in the level of insulin. Patient's urine culture and blood culture negative so far, her antibiotics have been discontinued. Continue with Eliquis for history of atrial fibrillation and CHF. Continue with the rest of her current medication regimen. Overall prognosis is guarded due to chronic medical conditions. Further recommendations to follow depending on the progress of the patient.
[2021-03-23] MEDS ORDERED: POTASSIUM CHLORIDE ER 20 MEQ TAB.ER PO ONE (02:45)
[2021-03-23] MEDS: FUROSEMIDE 10 MG/ML 4 ML VIAL IV SCH ×2 (02:58→15:11)
[2021-03-23] MEDS: ACETAMINOPHEN TAB 325 MG TAB PO PRN ×2 (03:11→21:21)
[2021-03-23 05:49] LABS: African American GFR (CKD) 42 (>60 ml/min/1.73 sqM); Anion Gap 9 mmol/L; Blood Urea Nitrogen 31 mg/dL (7-17); Calcium 8.4 mg/dL (8.4-10.2); Carbon Dioxide 30 mmol/L (22-30); Chloride 95 mmol/L (98-107); Glucose 245 mg/dL (74-99); Non-African American GFR(CKD) 36 (>60 ml/min/1.73 sqM); Potassium 3.5 mmol/L (3.5-5.1); Sodium 134 mmol/L (137-145)
[2021-03-23 07:26] LABS: Glucose,Whole Blood 243 mg/dL (75-99)
[2021-03-23] MEDS: INSULIN ASPART (NovoLOG) 100 UNIT/ML VIAL SQ SCH ×4 (09:34→20:31)
[2021-03-23] MEDS: amLODIPine 5 MG TAB PO SCH (09:34)
[2021-03-23] MEDS: prednisoLONE ACETATE 1% OPHTH DROPS 5 ML BTL RIGHT EYE SCH ×3 (09:35→20:36)
[2021-03-23] MEDS: APIXABAN 5 MG TAB PO SCH ×2 (09:35→20:23)
[2021-03-23] MEDS: LOSARTAN 50 MG TAB PO SCH (09:35)
[2021-03-23] MEDS: METOPROLOL TARTRATE 50 MG TAB PO SCH ×2 (09:35→20:23)
[2021-03-23 10:39] LABS: Basophils # (A) 0.07 X 10*3/uL (0.00-0.10); Basophils % (A) 0.6 %; Eosinophils # (A) 0.22 X 10*3/uL (0.04-0.35); Eosinophils % (A) 1.9 %; HCT 32.4 % (37.2-46.3); HGB 9.8 g/dL (12.0-15.0); Lymphocytes # (A) 2.54 X 10*3/uL (0.90-5.00); Lymphocytes % (A) 21.8 %; MCH 19.4 pg (27.0-32.0); MCHC 30.2 g/dL (32.0-37.0); Mean Platelet Volume 10.5 fL (9.5-12.2); Monocytes # (A) 1.11 X 10*3/uL (0.20-1.00); Monocytes % (A) 9.5 %; Neutrophils # (A) 7.65 X 10*3/uL (1.80-7.70); Neutrophils % (A) 65.8 %; Platelet Count 202 X 10*3/uL (140-440); RBC 5.06 X 10*6/uL (4.10-5.20); RDW 16.6 % (11.5-14.5); WBC 11.64 X 10*3/uL (4.50-10.00)
[2021-03-23 12:03] LABS: Glucose,Whole Blood 283 mg/dL (75-99)
--- NOTE | 2021-03-23 12:11 | P.PN ---
Subjective Progress Note Date: 03/23/21 Principal diagnosis: CHF, chest pain Patient was interviewed and examined in her room lying in bed. Patient is 72-year-old female who originally came the hospital with complaints of CHF and chest pain. We did a echocardiogram on her which did demonstrate her EF at low normal 50-55%. Her BNP today is elevated from yesterday at 1510. This is most likely due to the amount of amitotic fluid she is receiving for other issues. Patient states today that she feels okay, but was told by respiratory that she sounded more congested. She's had no incidence of chest pain overnight. GENERAL: Well-appearing, well-nourished and in no acute distress. NECK: Supple without JVD or thyromegaly. LUNGS: Breath sounds diminished to auscultation bilaterally. Respiration equal and unlabored. No wheezes, rales or rhonchi. HEART: Regular rate and rhythm without murmurs, rubs or gallops. S1 and S2 heard. EXTREMITIES: Normal range of motion, no edema. No clubbing or cyanosis. Peripheral pulses intact and strong. VITALS: Temp 97.8, pulse 65, respirations 16, blood pressure 118/69, O2 sat 93% on 3 L nasal cannula TELEMETRY: A/V paced rhythm LABS: Hemoglobin 9.8, sodium 134, potassium 3.5, B1 31, creatinine 1.39, BNP 1510 IMPRESSION: 1. Acute exacerbation of congestive heart failure 2. Atypical chest pain PLAN: 1. Continue IV Lasix as ordered. 2. Echocardiogram was completed which demonstrated a low normal EF of 50-55%. No new medications at this time Objective - Vital Signs Vital signs: Vital Signs Temp 97.8 F 03/23/21 07:00 Pulse 65 03/23/21 08:00 Resp 16 03/23/21 08:00 BP 118/69 03/23/21 07:00 Pulse Ox 93 L 03/23/21 07:00 Intake & Output 03/22/21 03/23/21 03/23/21 18:59 06:59 18:59 Output Total 500 Balance -500 Weight 76.5 kg Output: Urine 500 Other: Voiding Method Indwelling Catheter Indwelling Catheter Indwelling Catheter # Bowel Movements 1 - Labs CBC & Chem 7: 03/23/21 04:56 03/23/21 04:56 Labs: Abnormal Lab Results - Last 24 Hours (Table) 03/22/21 03/22/21 03/22/21 Range/Units 07:18 07:18 07:18 WBC 12.36 H (4.50-10.00) X 10*3/uL RBC 5.34 H (4.10-5.20) X 10*6/uL Hgb 10.4 L (12.0-15.0) g/dL Hct 34.3 L (37.2-46.3) % MCV 64.2 L (80.0-97.0) fL MCH 19.5 L (27.0-32.0) pg MCHC 30.3 L (32.0-37.0) g/dL RDW 16.8 H (11.5-14.5) % Absolute Nucleated RBC 0.02 H (0.00-0.00) X 10*3/uL Immature Gran # 0.05 H (0.00-0.04) X 10*3/uL Neutrophils # 9.04 H (1.80-7.70) X 10*3/uL Monocytes # 1.19 H (0.20-1.00) X 10*3/uL NRBC/100 WBC Diff 0.2 H (0.0-0.0) /100 WBCS Sodium (137-145) mmol/L Potassium 3.4 L (3.5-5.5) mmol/L Chloride (98-107) mmol/L Anion Gap 15.20 H (4.00-12.00) mmol/L BUN (7-17) mg/dL Creatinine (0.52-1.04) mg/dL Est GFR (CKD-EPI)AfAm 45.5 L (60.0-200.0) Est GFR (CKD-EPI)NonAf 39.3 L (60.0-200.0) Glucose 298 H (70-110) mg/dL POC Glucose (mg/dL) (75-99) mg/dL Hemoglobin A1c 8.7 H (4.0-6.0) % Total Bilirubin 2.1 H (0.3-1.2) mg/dL AST 39 H (13-35) U/L Albumin/Globulin Ratio 1.50 L (1.60-3.17) g/dL 08/03/22/21 03/23/21 Range/Units 17:06 20:42 04:56 WBC (4.50-10.00) X 10*3/uL RBC (4.10-5.20) X 10*6/uL Hgb (12.0-15.0) g/dL Hct (37.2-46.3) % MCV (80.0-97.0) fL MCH (27.0-32.0) pg MCHC (32.0-37.0) g/dL RDW (11.5-14.5) % Absolute Nucleated RBC (0.00-0.00) X 10*3/uL Immature Gran # (0.00-0.04) X 10*3/uL Neutrophils # (1.80-7.70) X 10*3/uL Monocytes # (0.20-1.00) X 10*3/uL NRBC/100 WBC Diff (0.0-0.0) /100 WBCS Sodium 134 L (137-145) mmol/L Potassium (3.5-5.5) mmol/L Chloride 95 L (98-107) mmol/L Anion Gap (4.00-12.00) mmol/L BUN 31 H (7-17) mg/dL Creatinine 1.39 H (0.52-1.04) mg/dL Est GFR (CKD-EPI)AfAm (60.0-200.0) Est GFR (CKD-EPI)NonAf (60.0-200.0) Glucose 245 H (70-110) mg/dL POC Glucose (mg/dL) 345 H 280 H (75-99) mg/dL Hemoglobin A1c (4.0-6.0) % Total Bilirubin (0.3-1.2) mg/dL AST (13-35) U/L Albumin/Globulin Ratio (1.60-3.17) g/dL 03/23/21 03/23/21 03/23/21 Range/Units 04:56 07:02 12:01 WBC 11.64 H (4.50-10.00) X 10*3/uL RBC (4.10-5.20) X 10*6/uL Hgb 9.8 L (12.0-15.0) g/dL Hct 32.4 L (37.2-46.3) % MCV 64.0 L (80.0-97.0) fL MCH 19.4 L (27.0-32.0) pg MCHC 30.2 L (32.0-37.0) g/dL RDW 16.6 H (11.5-14.5) % Absolute Nucleated RBC (0.00-0.00) X 10*3/uL Immature Gran # 0.05 H (0.00-0.04) X 10*3/uL Neutrophils # (1.80-7.70) X 10*3/uL Monocytes # 1.11 H (0.20-1.00) X 10*3/uL NRBC/100 WBC Diff (0.0-0.0) /100 WBCS Sodium (137-145) mmol/L Potassium (3.5-5.5) mmol/L Chloride (98-107) mmol/L Anion Gap (4.00-12.00) mmol/L BUN (7-17) mg/dL Creatinine (0.52-1.04) mg/dL Est GFR (CKD-EPI)AfAm (60.0-200.0) Est GFR (CKD-EPI)NonAf (60.0-200.0) Glucose (70-110) mg/dL POC Glucose (mg/dL) 243 H 283 H (75-99) mg/dL Hemoglobin A1c (4.0-6.0) % Total Bilirubin (0.3-1.2) mg/dL AST (13-35) U/L Albumin/Globulin Ratio (1.60-3.17) g/dL Microbiology - Last 24 Hours (Table) 03/21/21 20:18 Blood Culture - Preliminary Blood No Growth after 24 hours 03/21/21 19:45 Urine Culture - Preliminary Urine,Catheterized
--- NOTE | 2021-03-23 12:38 | P.PN ---
Subjective Progress Note Date: 03/23/21 80-year-old female patient admitted to the hospital because of chest pain. The pain was mainly across the left anterior chest area. It was all day and lasted for almost 24 hours on the day of his admission and she also had pain overnight. Not related to breathing.. She is known to have a nonocclusive coronary artery disease, previous cardiac catheterization from December 2016 showed no significant coronary artery disease. She is also known to have severe aortic stenosis and she has undergone aortic valve replacement back in 2016 I was involved in her care back then. She has also history of sick sinus syndrome and she has chamber pacemaker in place. The patient had an echocardiogram from December 2018 showing stable aortic valve prosthesis and normal ejection fraction. Currently, she is afebrile. No cough or sputum production. No hemoptysis or pleurisy. She had some increased swelling lower extremity and she was started on IV Lasix. She was also given a combination of Zosyn and Levaquin. Chest x-ray showing some cardiomegaly with mild pulmonary vascular congestion. She is on room air oxygen. She is sitting up on a chair and she is calm and comfortable. No recent pneumonias. On today's evaluation of a 2020, the patient is feeling of any chest pain. She has no new complaints. Echocardiogram was done. The patient has an ejection fraction of 50-55%. The patient also has a component of moderate mitral regurgitation, mild mitral stenosis, mild aortic stenosis, moderate c oncentric LVH. For now, the patient is on Lasix 40 mg IV every 12 hours. The patient is on long-term medical condition with Eliquis 5 mg by mouth. She is also currently on oxygen at 3 L per minute nasal cannula. The cardiac rhythm is paced. Objective - Vital Signs Vital signs: Vital Signs Temp 97.8 F 03/23/21 07:00 Pulse 65 03/23/21 08:00 Resp 16 03/23/21 08:00 BP 118/69 03/23/21 07:00 Pulse Ox 93 L 03/23/21 07:00 Intake & Output 03/22/21 03/23/21 03/23/21 18:59 06:59 18:59 Output Total 500 Balance -500 Weight 76.5 kg Output: Urine 500 Other: Voiding Method Indwelling Catheter Indwelling Catheter Indwelling Catheter # Bowel Movements 1 - Exam CONSTITUTIONAL: No apparent distress. HEENT: Head is normocephalic. Pupils are equal, round. Sclerae anicteric. Mucous membranes of the mouth are moist. No JVD. No carotid bruit. CHEST EXAMINATION: Lungs mild crackles bilaterally. Chest wall tenderness is noted on palpation and wilth deep breathing. HEART EXAMINATION: Regular rate and rhythm. S1, S2 heard. Systolic murmur noted, No gallops or rub. ABDOMEN: Soft, nontender. Positive bowel sounds. EXTREMITIES: 2+ peripheral pulses, no lower extremity edema and no calf tenderness. NEUROLOGIC EXAMINATION: Patient is awake, alert and oriented x3. - Labs CBC & Chem 7: 03/23/21 04:56 03/23/21 04:56 Labs: Abnormal Lab Results - Last 24 Hours (Table) 03/22/21 03/22/21 03/22/21 Range/Units 07:18 07:18 07:18 WBC 12.36 H (4.50-10.00) X 10*3/uL RBC 5.34 H (4.10-5.20) X 10*6/uL Hgb 10.4 L (12.0-15.0) g/dL Hct 34.3 L (37.2-46.3) % MCV 64.2 L (80.0-97.0) fL MCH 19.5 L (27.0-32.0) pg MCHC 30.3 L (32.0-37.0) g/dL RDW 16.8 H (11.5-14.5) % Absolute Nucleated RBC 0.02 H (0.00-0.00) X 10*3/uL Immature Gran # 0.05 H (0.00-0.04) X 10*3/uL Neutrophils # 9.04 H (1.80-7.70) X 10*3/uL Monocytes # 1.19 H (0.20-1.00) X 10*3/uL NRBC/100 WBC Diff 0.2 H (0.0-0.0) /100 WBCS Sodium (137-145) mmol/L Potassium 3.4 L (3.5-5.5) mmol/L Chloride (98-107) mmol/L Anion Gap 15.20 H (4.00-12.00) mmol/L BUN (7-17) mg/dL Creatinine (0.52-1.04) mg/dL Est GFR (CKD-EPI)AfAm 45.5 L (60.0-200.0) Est GFR (CKD-EPI)NonAf 39.3 L (60.0-200.0) Glucose 298 H (70-110) mg/dL POC Glucose (mg/dL) (75-99) mg/dL Hemoglobin A1c 8.7 H (4.0-6.0) % Total Bilirubin 2.1 H (0.3-1.2) mg/dL AST 39 H (13-35) U/L Albumin/Globulin Ratio 1.50 L (1.60-3.17) g/dL 03/22/21 03/22/21 03/23/21 Range/Units 17:06 20:42 04:56 WBC (4.50-10.00) X 10*3/uL RBC (4.10-5.20) X 10*6/uL Hgb (12.0-15.0) g/dL Hct (37.2-46.3) % MCV (80.0-97.0) fL MCH (27.0-32.0) pg MCHC (32.0-37.0) g/dL RDW (11.5-14.5) % Absolute Nucleated RBC (0.00-0.00) X 10*3/uL Immature Gran # (0.00-0.04) X 10*3/uL Neutrophils # (1.80-7.70) X 10*3/uL Monocytes # (0.20-1.00) X 10*3/uL NRBC/100 WBC Diff (0.0-0.0) /100 WBCS Sodium 134 L (137-145) mmol/L Potassium (3.5-5.5) mmol/L Chloride 95 L (98-107) mmol/L Anion Gap (4.00-12.00) mmol/L BUN 31 H (7-17) mg/dL Creatinine 1.39 H (0.52-1.04) mg/dL Est GFR (CKD-EPI)AfAm (60.0-200.0) Est GFR (CKD-EPI)NonAf (60.0-200.0) Glucose 245 H (70-110) mg/dL POC Glucose (mg/dL) 345 H 280 H (75-99) mg/dL Hemoglobin A1c (4.0-6.0) % Total Bilirubin (0.3-1.2) mg/dL AST (13-35) U/L Albumin/Globulin Ratio (1.60-3.17) g/dL 03/23/21 03/23/21 03/23/21 Range/Units 04:56 07:02 12:01 WBC 11.64 H (4.50-10.00) X 10*3/uL RBC (4.10-5.20) X 10*6/uL Hgb 9.8 L (12.0-15.0) g/dL Hct 32.4 L (37.2-46.3) % MCV 64.0 L (80.0-97.0) fL MCH 19.4 L (27.0-32.0) pg MCHC 30.2 L (32.0-37.0) g/dL RDW 16.6 H (11.5-14.5) % Absolute Nucleated RBC (0.00-0.00) X 10*3/uL Immature Gran # 0.05 H (0.00-0.04) X 10*3/uL Neutrophils # (1.80-7.70) X 10*3/uL Monocytes # 1.11 H (0.20-1.00) X 10*3/uL NRBC/100 WBC Diff (0.0-0.0) /100 WBCS Sodium (137-145) mmol/L Potassium (3.5-5.5) mmol/L Chloride (98-107) mmol/L Anion Gap (4.00-12.00) mmol/L BUN (7-17) mg/dL Creatinine (0.52-1.04) mg/dL Est GFR (CKD-EPI)AfAm (60.0-200.0) Est GFR (CKD-EPI)NonAf (60.0-200.0) Glucose (70-110) mg/dL POC Glucose (mg/dL) 243 H 283 H (75-99) mg/dL Hemoglobin A1c (4.0-6.0) % Total Bilirubin (0.3-1.2) mg/dL AST (13-35) U/L Albumin/Globulin Ratio (1.60-3.17) g/dL Microbiology - Last 24 Hours (Table) 03/21/21 20:18 Blood Culture - Preliminary Blood No Growth after 24 hours 03/21/21 19:45 Urine Culture - Preliminary Urine,Catheterized Assessment and Plan Plan: 1 chest pain currently under investigation, based on a catheterization from 2016, the patient had no significance CAD. Current EKG and cardiac enzymes are negative. Essentially atypical 2 aortic valve stenosis post AVR and the patient has a preserved LV function 3 history of sick sinus syndrome post pacemaker insertion 4 history of CVA with some residual deficits with speech 5 diabetes mellitus 6 hypertension 7 hyperlipidemia 8 proximity fibrillation 9 scoliosis Plan Echocardiogram were noted and the patient is a preserved LV function. Wean down the FiO2 to maintain a saturation above 90% Continue diuretics Monitor electrolytes and blood sugar for medicine
[2021-03-23 17:11] LABS: Glucose,Whole Blood 376 mg/dL (75-99)
--- NOTE | 2021-03-23 18:03 | P.PN ---
Subjective Progress Note Date: 03/23/21 Principal diagnosis: CHF Exacerbation Ms. Ovalle is a 60-year-old female with a past medical history of coronary artery disease, aortic stenosis status post aortic valve replacement in 2006, sick sinus syndrome has chamber pacemaker in place coming into the hospital with a chief complaint of difficulty in breathing. Patient was blood pressure at home associated with difficulty in breathing so she came into the ER for evaluation. On 03/22/2021 -patient is sitting in bed states that her difficulty in breathing is improving. She has been started on IV Lasix with some improvement in her lower extremity edema. Patient denies having any fevers chills or rigors. No chest pain or palpitations. No abdominal pain nausea vomiting or diarrhea. No dysuria or hematuria. On reviewing the vitals temperature of 98.0, heart rate 63, respiratory 16, blood pressure 122/7 1 saturating at 98% on 3 L of oxygen. Reviewing the labs from this morning white count of 12.3, hemoglobin 10.4, platelets 207, sodium 140, potassium 3.4, chloride 97, bicarb 27, BUN 24, creatinine 1.3. On 03/23/2021- patient is sitting up in a chair by the bedside states that the difficulty in breathing is improving. She also states that her lower extremity swelling is better. She denies having any fevers chills or rigors. No chest pain or palpitations. No abdominal pain nausea vomiting or diarrhea. On reviewing her vitals temperature 97.8, heart rate 60, respiratory 16, blood pressure 118/69, saturating at 9 3% on 3 L of nasal cannula. On reviewing patient's labs white count of 11.6, hemoglobin 9.8, platelets 202. Sodium 134, progression 3.5, chloride 95 Bicarb 30, BUN 31, creatinine 1.39. Patient's medications have been reviewed. Patient's blood sugars are running high in 300s. Objective - Vital Signs Vital signs: Vital Signs Temp 97.8 F 03/23/21 07:00 Pulse 65 03/23/21 08:00 Resp 16 03/23/21 08:00 BP 118/69 03/23/21 07:00 Pulse Ox 93 L 03/23/21 07:00 Intake & Output 03/22/21 03/23/21 03/23/21 18:59 06:59 18:59 Output Total 500 Balance -500 Weight 76.5 kg Output: Urine 500 Other: Voiding Method Indwelling Catheter Indwelling Catheter Indwelling Catheter # Bowel Movements 1 - Exam - Constitutional General appearance: no acute distress - EENT Eyes: EOMI - Neck Neck: no lymphadenopathy - Respiratory Respiratory: bilateral: CTA - Cardiovascular Rhythm: regular Heart sounds: normal: S1, S2 Abnormal Heart Sounds: no S3 Gallop + pedeal edema bilaterally improving - Gastrointestinal General gastrointestinal: soft, no tenderness - Neurologic Neurologic: CNII-XII intact - Labs CBC & Chem 7: 03/23/21 04:56 03/23/21 04:56 Labs: Abnormal Lab Results - Last 24 Hours (Table) 03/22/21 03/22/21 03/22/21 Range/Units 07:18 07:18 07:18 WBC 12.36 H (4.50-10.00) X 10*3/uL RBC 5.34 H (4.10-5.20) X 10*6/uL Hgb 10.4 L (12.0-15.0) g/dL Hct 34.3 L (37.2-46.3) % MCV 64.2 L (80.0-97.0) fL MCH 19.5 L (27.0-32.0) pg MCHC 30.3 L (32.0-37.0) g/dL RDW 16.8 H (11.5-14.5) % Absolute Nucleated RBC 0.02 H (0.00-0.00) X 10*3/uL Immature Gran # 0.05 H (0.00-0.04) X 10*3/uL Neutrophils # 9.04 H (1.80-7.70) X 10*3/uL Monocytes # 1.19 H (0.20-1.00) X 10*3/uL NRBC/100 WBC Diff 0.2 H (0.0-0.0) /100 WBCS Sodium (137-145) mmol/L Potassium 3.4 L (3.5-5.5) mmol/L Chloride (98-107) mmol/L Anion Gap 15.20 H (4.00-12.00) mmol/L BUN (7-17) mg/dL Creatinine (0.52-1.04) mg/dL Est GFR (CKD-EPI)AfAm 45.5 L (60.0-200.0) Est GFR (CKD-EPI)NonAf 39.3 L (60.0-200.0) Glucose 298 H (70-110) mg/dL POC Glucose (mg/dL) (75-99) mg/dL Hemoglobin A1c 8.7 H (4.0-6.0) % Total Bilirubin 2.1 H (0.3-1.2) mg/dL AST 39 H (13-35) U/L Albumin/Globulin Ratio 1.50 L (1.60-3.17) g/dL 03/22/21 03/22/21 03/22/21 Range/Units 12:01 17:06 20:42 WBC (4.50-10.00) X 10*3/uL RBC (4.10-5.20) X 10*6/uL Hgb (12.0-15.0) g/dL Hct (37.2-46.3) % MCV (80.0-97.0) fL MCH (27.0-32.0) pg MCHC (32.0-37.0) g/dL RDW (11.5-14.5) % Absolute Nucleated RBC (0.00-0.00) X 10*3/uL Immature Gran # (0.00-0.04) X 10*3/uL Neutrophils # (1.80-7.70) X 10*3/uL Monocytes # (0.20-1.00) X 10*3/uL NRBC/100 WBC Diff (0.0-0.0) /100 WBCS Sodium (137-145) mmol/L Potassium (3.5-5.5) mmol/L Chloride (98-107) mmol/L Anion Gap (4.00-12.00) mmol/L BUN (7-17) mg/dL Creatinine (0.52-1.04) mg/dL Est GFR (CKD-EPI)AfAm (60.0-200.0) Est GFR (CKD-EPI)NonAf (60.0-200.0) Glucose (70-110) mg/dL POC Glucose (mg/dL) 448 H 345 H 280 H (75-99) mg/dL Hemoglobin A1c (4.0-6.0) % Total Bilirubin (0.3-1.2) mg/dL AST (13-35) U/L Albumin/Globulin Ratio (1.60-3.17) g/dL 03/23/21 03/23/21 03/23/21 Range/Units 04:56 04:56 07:02 WBC 11.64 H (4.50-10.00) X 10*3/uL RBC (4.10-5.20) X 10*6/uL Hgb 9.8 L (12.0-15.0) g/dL Hct 32.4 L (37.2-46.3) % MCV 64.0 L (80.0-97.0) fL MCH 19.4 L (27.0-32.0) pg MCHC 30.2 L (32.0-37.0) g/dL RDW 16.6 H (11.5-14.5) % Absolute Nucleated RBC (0.00-0.00) X 10*3/uL Immature Gran # 0.05 H (0.00-0.04) X 10*3/uL Neutrophils # (1.80-7.70) X 10*3/uL Monocytes # 1.11 H (0.20-1.00) X 10*3/uL NRBC/100 WBC Diff (0.0-0.0) /100 WBCS Sodium 134 L (137-145) mmol/L Potassium (3.5-5.5) mmol/L Chloride 95 L (98-107) mmol/L Anion Gap (4.00-12.00) mmol/L BUN 31 H (7-17) mg/dL Creatinine 1.39 H (0.52-1.04) mg/dL Est GFR (CKD-EPI)AfAm (60.0-200.0) Est GFR (CKD-EPI)NonAf (60.0-200.0) Glucose 245 H (70-110) mg/dL POC Glucose (mg/dL) 243 H (75-99) mg/dL Hemoglobin A1c (4.0-6.0) % Total Bilirubin (0.3-1.2) mg/dL AST (13-35) U/L Albumin/Globulin Ratio (1.60-3.17) g/dL Microbiology - Last 24 Hours (Table) 03/21/21 20:18 Blood Culture - Preliminary Blood No Growth after 24 hours 03/21/21 19:45 Urine Culture - Preliminary Urine,Catheterized Assessment and Plan Assessment: ASSESSMENT Acute CHF exacerbation Systolic congestive heart failure Contacts and alkalosis possibly secondary to diuretic therapy Aortic wall stenosis status post AVR History of sick sinus syndrome status post pacemaker History of CVA with residual speech deficit Hypertension Diabetes mellitus Hyperlipidemia Paroxysmal atrial fibrillation Scoliosis Obesity with BMI of 34 Mild protein calorie malnutrition Chronic low back pain Diabetic neuropathy History of endometriosis History of brain concussion History of hysterectomy History of tonsillectomy History of chest tube for pleural effusion postoperative for replacement History of benign bilateral breast tumors History of bilateral knee replacement PLAN : Patient is currently being treated for CHF exacerbation with IV Lasix and showed significant improvement in her difficulty in breathing. Cardiology, pulmonary on board and following the patient. Patient to be continued on the current medication regimen. Patient's blood pressure running within normal limits and blood sugars elevated around 300s to 400s, increased to a dose of 311 mother from 25 units to 30 units Patient's urine culture and blood culture negative so far, her antibiotics have been discontinued. Continue with Eliquis for history of atrial fibrillation and CHF. Continue with the rest of her current medication regimen. Will order a.m. labs. Overall prognosis is guarded due to chronic medical conditions. Further recommendations to follow depending on the progress of the patient.
[2021-03-23] MEDS: ATORVASTATIN 40 MG TAB PO SCH (20:23)
[2021-03-23 20:25] LABS: Glucose,Whole Blood 335 mg/dL (75-99)
[2021-03-23] MEDS: INSULIN DETEMIR (LEVEMIR) 100 UNIT/ML SYR SQ SCH (21:21)
[2021-03-24] MEDS: FUROSEMIDE 10 MG/ML 4 ML VIAL IV SCH (01:35)
[2021-03-24 07:45] LABS: Glucose,Whole Blood 222 mg/dL (75-99)
[2021-03-24] MEDS: amLODIPine 5 MG TAB PO SCH (08:34)
[2021-03-24] MEDS: LOSARTAN 50 MG TAB PO SCH (08:35)
[2021-03-24] MEDS: METOPROLOL TARTRATE 50 MG TAB PO SCH ×3 (08:35→21:44)
[2021-03-24] MEDS: INSULIN ASPART (NovoLOG) 100 UNIT/ML VIAL SQ SCH ×4 (08:35→21:44)
[2021-03-24] MEDS: APIXABAN 5 MG TAB PO SCH ×2 (08:35→21:44)
[2021-03-24] MEDS: prednisoLONE ACETATE 1% OPHTH DROPS 5 ML BTL RIGHT EYE SCH ×2 (08:35→21:46)
--- NOTE | 2021-03-24 11:19 | P.PN ---
Subjective This is a pleasant 80-year-old female past medical history significant for coronary artery disease, valvular heart disease status post aortic valve replacement 2017, sick sinus syndrome status post dual-chamber pacemaker placement 2017 ([employer]), diabetes mellitus, paroxysmal atrial fibrillation, hypertension, dyslipidemia and CVA. She follows my office with Dr. Lazaro. She is seen and examined sitting up in the recliner in no acute distress. She continues to require oxygen via nasal cannula. Blood pressure 103/56 heart rate 65 afebrile maintaining oxygen saturation on nasal cannula. Laboratory data from today continues to be pending at this time. Currently maintained on IV Lasix. 24-hour urine output is 900 ml. GENERAL: Well-appearing, well-nourished and in no acute distress. NECK: Supple without JVD or thyromegaly. LUNGS: Breath sounds clear to auscultation bilaterally. Respiration equal and unlabored. No wheezes, rales or rhonchi. HEART: Regular rate and rhythm with systolic ejection murmur at the base, no rubs or gallops. S1 and S2 heard. EXTREMITIES: Normal range of motion, no edema. No clubbing or cyanosis. Peripheral pulses intact. ASSESSMENT Acute on chronic diastolic heart failure Chest pain, atypical Hypoxia Coronary artery disease Valvular heart disease status post aortic valve replacement Sick sinus syndrome status post permanent pacemaker implantation Hypertension Dyslipidemia PLAN Transition to oral diuretics; lasix 40 mg in the AM and 20 mg in the afternoon. Decrease lopressor to 50 mg TID. Await further pulmonary recommendations regarding hypoxia. Stable from a cardiac perspective. Nurse Practitioner note has been reviewed, I agree with a documented findings and plan of care. Patient was seen and examined. Objective - Vital Signs Vital signs: Vital Signs Temp 97.7 F 03/24/21 07:00 Pulse 65 03/24/21 07:00 Resp 16 03/24/21 07:00 BP 103/56 03/24/21 07:00 Pulse Ox 92 L 03/24/21 07:00 Intake & Output 03/23/21 03/24/21 03/24/21 18:59 06:59 18:59 Intake Total 118 Output Total 900 Balance -900 118 Weight 75.9 kg Intake: Oral 118 Output: Urine 900 Other: Voiding Method Indwelling Catheter Indwelling Catheter Indwelling Catheter - Labs CBC & Chem 7: 03/23/21 04:56 03/23/21 04:56 Labs: Abnormal Lab Results - Last 24 Hours (Table) 03/23/21 03/23/21 03/23/21 Range/Units 12:01 17:10 20:24 POC Glucose (mg/dL) 283 H 376 H 335 H (75-99) mg/dL 03/24/21 Range/Units 07:44 POC Glucose (mg/dL) 222 H (75-99) mg/dL Microbiology - Last 24 Hours (Table) 03/21/21 20:18 Blood Culture - Preliminary Blood No Growth after 48 hours 03/21/21 19:45 Urine Culture - Final Urine,Catheterized
[2021-03-24 11:51] LABS: Glucose,Whole Blood 239 mg/dL (75-99)
[2021-03-24 12:00] LABS: African American GFR (CKD) 41.6 (60.0-200.0); Anion Gap 14.5 mmol/L (4.00-12.00); BUN/Creat Ratio 22.86 Ratio (12.00-20.00); Calcium 8.9 mg/dL (8.7-10.3); Carbon Dioxide 27.5 mmol/L (21.6-31.8); Non-African American GFR(CKD) 35.9 (60.0-200.0); Potassium 3.3 mmol/L (3.5-5.5)
--- NOTE | 2021-03-24 16:07 | P.PN ---
Subjective Progress Note Date: 03/24/21 Principal diagnosis: Chest pain, shortness of breath 80-year-old female patient admitted to the hospital because of chest pain. The pain was mainly across the left anterior chest area. It was all day and lasted for almost 24 hours on the day of his admission and she also had pain overnight. Not related to breathing.. She is known to have a nonocclusive coronary artery disease, previous cardiac catheterization from December 2016 showed no significant coronary artery disease. She is also known to have severe aortic stenosis and she has undergone aortic valve replacement back in 2016 I was involved in her care back then. She has also history of sick sinus syndrome and she has chamber pacemaker in place. The patient had an echocardiogram from December 2018 showing stable aortic valve prosthesis and normal ejection fraction. Currently, she is afebrile. No cough or sputum production. No hemoptysis or pleurisy. She had some increased swelling lower extremity and she was started on IV Lasix. She was also given a combination of Zosyn and Levaquin. Chest x-ray showing some cardiomegaly with mild pulmonary vascular congestion. She is on room air oxygen. She is sitting up on a chair and she is calm and comfortable. No recent pneumonias. On today's evaluation of a 2020, the patient is feeling of any chest pain. She has no new complaints. Echocardiogram was done. The patient has an ejection fraction of 50-55%. The patient also has a component of moderate mitral regurgitation, mild mitral stenosis, mild aortic stenosis, moderate concentric LVH. For now, the patient is on Lasix 40 mg IV every 12 hours. The patient is on long-term medical condition with Eliquis 5 mg by mouth. She is also currently on oxygen at 3 L per minute nasal cannula. The cardiac rhythm is paced. On 03/24/2021 patient seen in follow-up on medical surgical floor. She sitting up in the recliner, in no acute distress, she is currently on 3 L of oxygen and the pulse ox is 92%, vital signs have been stable, her breathing is improving, she remains on once daily dose of Lasix, she is in negative nitrogen 100 mL net fluid balance over the last 24 hours. No recent chest x-ray, other than the one obtained on admission. No complaints of chest pain, lung sounds reveal dim inished breath sounds with some diminished breath sounds at bilateral bases, proBNP came back at 705, which is down from 1510. Potassium is 3.3, CO2 is 27, BUN is 32, and creatinine is 1.4. No acute events overnight, cardiology is following and is planning on transitioning the patient to oral diuretics. Objective - Vital Signs Vital signs: Vital Signs Temp 97.9 F 03/24/21 15:49 Pulse 67 03/24/21 15:49 Resp 17 03/24/21 15:49 BP 103/56 03/24/21 15:49 Pulse Ox 92 L 03/24/21 15:49 Intake & Output 03/23/21 03/24/21 03/24/21 18:59 06:59 18:59 Intake Total 118 Output Total 900 Balance -900 118 Weight 75.9 kg Intake: Oral 118 Output: Urine 900 Other: Voiding Method Indwelling Catheter Indwelling Catheter Indwelling Catheter - Exam GENERAL EXAM: Alert, very pleasant, 80-year-old white female, sitting up in the chair, on 3 L of oxygen per pulse ox is 92%, comfortable in no apparent distress. HEAD: Normocephalic/atraumatic. EYES: Normal reaction of pupils, equal size. Conjunctiva pink, sclera white. NOSE: Clear with pink turbinates. THROAT: No erythema or exudates. NECK: No masses, no JVD, no thyroid enlargement, no adenopathy. CHEST: No chest wall deformity. Symmetrical expansion. LUNGS: Equal air entry with no crackles, wheeze, rhonchi or dullness. Diminished breath sounds at the bases CVS: Regular rate and rhythm, normal S1 and S2, no gallops, no murmurs, no rubs ABDOMEN: Soft, nontender. No hepatosplenomegaly, normal bowel sounds, no guarding or rigidity. EXTREMITIES: No clubbing, no edema, no cyanosis, 2+ pulses and upper and lower extremities. MUSCULOSKELETAL: Muscle strength and tone normal. SPINE: No scoliosis or deformity SKIN: No rashes CENTRAL NERVOUS SYSTEM: Alert and oriented -3. No focal deficits, tone is normal in all 4 extremities. PSYCHIATRIC: Alert and oriented -3. Appropriate affect. Intact judgment and insight. - Labs CBC & Chem 7: 03/23/21 04:56 03/24/21 06:04 Labs: Abnormal Lab Results - Last 24 Hours (Table) 03/23/21 03/23/21 03/24/21 Range/Units 17:10 20:24 06:04 Potassium 3.3 L (3.5-5.5) mmol/L Anion Gap 14.50 H (4.00-12.00) mmol/L BUN 32.0 H (9.0-27.0) mg/dL Est GFR (CKD-EPI)AfAm 41.6 L (60.0-200.0) Est GFR (CKD-EPI)NonAf 35.9 L (60.0-200.0) BUN/Creatinine Ratio 22.86 H (12.00-20.00) Ratio Glucose 229 H (70-110) mg/dL POC Glucose (mg/dL) 376 H 335 H (75-99) mg/dL 03/24/21 03/24/21 Range/Units 07:44 11:50 Potassium (3.5-5.5) mmol/L Anion Gap (4.00-12.00) mmol/L BUN (9.0-27.0) mg/dL Est GFR (CKD-EPI)AfAm (60.0-200.0) Est GFR (CKD-EPI)NonAf (60.0-200.0) BUN/Creatinine Ratio (12.00-20.00) Ratio Glucose (70-110) mg/dL POC Glucose (mg/dL) 222 H 239 H (75-99) mg/dL Microbiology - Last 24 Hours (Table) 03/21/21 20:18 Blood Culture - Preliminary Blood No Growth after 48 hours 03/21/21 19:45 Urine Culture - Final Urine,Catheterized Assessment and Plan Plan: 1 chest pain currently under investigation, based on a catheterization from 2017, the patient had no significance CAD. Current EKG and cardiac enzymes are negative. Essentially atypical 2 aortic valve stenosis post AVR and the patient has a preserved LV function 3 history of sick sinus syndrome post pacemaker insertion 4 history of CVA with some residual deficits with speech 5 diabetes mellitus 6 hypertension 7 hyperlipidemia 8 paroxysmal fibrillation 9 scoliosis Plan: Diuretics per cardiology recommendations Continue weaning FiO2 Patient is maintaining negative fluid balance, States breathing is improving Follow-up chest x-ray tomorrow Follow-up labs, electrolytes and renal profile Continue to follow Time with Patient: Less than 30
[2021-03-24 17:43] LABS: Glucose,Whole Blood 317 mg/dL (75-99)
[2021-03-24 20:35] LABS: Glucose,Whole Blood 343 mg/dL (75-99)
[2021-03-24] MEDS ORDERED: FUROSEMIDE 20 MG TAB PO SCH (21:00)
[2021-03-24] MEDS: ATORVASTATIN 40 MG TAB PO SCH (21:44)
[2021-03-24] MEDS: INSULIN DETEMIR (LEVEMIR) 100 UNIT/ML SYR SQ SCH (21:45)
--- NOTE | 2021-03-24 22:59 | P.PN ---
Subjective Progress Note Date: 03/24/21 Principal diagnosis: Chest pain. The patient is here essentially for chest pressure. Echocardiogram was done. Appreciate cardiology input. She feels much better and more energetic. She is sitting up in a chair. Objective - Vital Signs Vital signs: Vital Signs Temp 99.1 F 03/24/21 19:58 Pulse 74 03/24/21 19:58 Resp 16 03/24/21 19:58 BP 134/74 03/24/21 19:58 Pulse Ox 98 03/24/21 19:58 Intake & Output 03/24/21 03/24/21 03/25/21 06:59 18:59 06:59 Intake Total 118 Output Total 900 Balance -900 118 Weight 75.9 kg Intake: Oral 118 Output: Urine 900 Other: Voiding Method Indwelling Catheter Indwelling Catheter - Constitutional General appearance: Present: average body habitus - EENT Eyes: Present: abnormal pupil - Neck Neck: Present: lymphadenopathy - Cardiovascular Rhythm: regular Heart sounds: normal: S1, S2 Abnormal Heart Sounds: Absent: S3 Gallop - Gastrointestinal General gastrointestinal: Present: soft, tenderness - Psychiatric Psychiatric: Present: A&O x's 3, appropriate affect - Labs CBC & Chem 7: 03/23/21 04:56 03/24/21 06:04 Labs: Abnormal Lab Results - Last 24 Hours (Table) 03/24/21 03/24/21 03/24/21 Range/Units 06:04 07:44 11:50 Potassium 3.3 L (3.5-5.5) mmol/L Anion Gap 14.50 H (4.00-12.00) mmol/L BUN 32.0 H (9.0-27.0) mg/dL Est GFR (CKD-EPI)AfAm 41.6 L (60.0-200.0) Est GFR (CKD-EPI)NonAf 35.9 L (60.0-200.0) BUN/Creatinine Ratio 22.86 H (12.00-20.00) Ratio Glucose 229 H (70-110) mg/dL POC Glucose (mg/dL) 222 H 239 H (75-99) mg/dL 03/24/21 03/24/21 Range/Units 17:41 20:34 Potassium (3.5-5.5) mmol/L Anion Gap (4.00-12.00) mmol/L BUN (9.0-27.0) mg/dL Est GFR (CKD-EPI)AfAm (60.0-200.0) Est GFR (CKD-EPI)NonAf (60.0-200.0) BUN/Creatinine Ratio (12.00-20.00) Ratio Glucose (70-110) mg/dL POC Glucose (mg/dL) 317 H 343 H (75-99) mg/dL Microbiology - Last 24 Hours (Table) 03/21/21 20:18 Blood Culture - Preliminary Blood No Growth after 72 hours Assessment and Plan (1) Chest pain Current Visit: Yes Status: Acute Code(s): R07.9 - CHEST PAIN, UNSPECIFIED SNOMED Code(s): 49885012 (2) Asthma Current Visit: No Status: Acute Code(s): J45.909 - UNSPECIFIED ASTHMA, UNCOMPLICATED SNOMED Code(s): 728325829 (3) Diabetes mellitus, insulin dependent (IDDM), controlled Current Visit: No Status: Acute Code(s): E11.9 - TYPE 2 DIABETES MELLITUS WITHOUT COMPLICATIONS; Z79.4 - CARE HOME (CURRENT) USE OF INSULIN SNOMED Code(s): 72852426 Plan: the patient has significant clinical improvement. Echocardiogram is actually quite nominal given her total situation. diabetes is stable. Anticipate discharge in a.m.
[2021-03-25 02:55] VITALS: TEMP 98.2
--- NOTE | 2021-03-25 07:28 | XR ---
EXAMINATION TYPE: XR chest 1V portable DATE OF EXAM: 03/25/2021 COMPARISON: 03/21/2021 HISTORY: Shortness of breath TECHNIQUE: Single frontal view of the chest is obtained. FINDINGS: Bilateral infiltrate and cardiac device with postoperative change. No sizable pneumothorax . Limited inspiration. Small bilateral effusion suspected. IMPRESSION: 1. Limited exam due to reduced inspiration demonstrates bilateral infiltrate and small effusion. Tanika elate clinically to exclude mild venous congestion or interstitial pneumonitis.
[2021-03-25 07:38] LABS: Glucose,Whole Blood 150 mg/dL (75-99)
[2021-03-25 08:12] VITALS: BP 136/77; PULSE 66; RESP 17
[2021-03-25] MEDS: APIXABAN 5 MG TAB PO SCH (08:40)
[2021-03-25] MEDS: INSULIN ASPART (NovoLOG) 100 UNIT/ML VIAL SQ SCH (08:40)
[2021-03-25] MEDS: prednisoLONE ACETATE 1% OPHTH DROPS 5 ML BTL RIGHT EYE SCH (08:40)
[2021-03-25] MEDS: METOPROLOL TARTRATE 50 MG TAB PO SCH (08:40)
[2021-03-25] MEDS: amLODIPine 5 MG TAB PO SCH (08:41)
[2021-03-25] MEDS: LOSARTAN 50 MG TAB PO SCH (08:41)
[2021-03-25] MEDS ORDERED: FUROSEMIDE 40 MG TAB PO SCH (09:00)
--- NOTE | 2021-03-25 09:05 | P.DS ---
Providers Date of admission: 03/22/21 12:37 Attending physician: Carlos Tabor Consults: 03/21/21 02:31 Consult Physician Routine Consulting Provider: Amy Wright Consult Reason/Comments: chf Do you want consulting provider notified?: Yes 03/22/21 10:44 Consult Physician Routine Consulting Provider: Bal Soler Consult Reason/Comments: shortness of breath Do you want consulting provider notified?: Yes Primary care physician: Carlos Tabor - Discharge Diagnosis(es) (1) Chest pain Current Visit: Yes Status: Acute (2) Asthma Current Visit: No Status: Acute (3) Diabetes mellitus, insulin dependent (IDDM), controlled Current Visit: No Status: Acute Hospital Course: This discharge summary 72-year-old white female centimeter for angina. Evaluation was done by cardiology and the medical team. The patient did quite well after having diuresis for perceived congestive heart failure. The patient has been tolerating diet and improved after having appropriate diuresis. Ech ocardiogram she showed excellent ejection fraction. The patient is now tolerating diet ambulating to almost her baseline will be discharged in stable condition. Cardiology has signed off and we will follow-up in about 2-3 days. Patient Condition at Discharge: Fair Plan - Discharge Summary Discharge Rx Participant: Yes New Discharge Prescriptions: New Furosemide [Lasix] 20 mg PO HS #30 tab Metoprolol Tartrate [Lopressor] 50 mg PO TID #90 tab Continue amLODIPine [Norvasc] 5 mg PO DAILY Atorvastatin [Lipitor] 40 mg PO HS tab Metoprolol Tartrate [Lopressor] 100 mg PO BID Insulin Aspart (For Pump) [NovoLOG (For Pump)] 0.01 unit SQ-PUMP CONTINUOUS Prednisolone Acetate/Pf [Prednisolone Acet 1% Eye Drop] 2 drops RIGHT EYE BID Losartan Potassium [Cozaar] 50 mg PO DAILY Furosemide [Lasix] 20 mg PO DAILY Apixaban [Eliquis] 5 mg PO BID Discharge Medication List amLODIPine [Norvasc] 5 mg PO DAILY 07/17/16 [History] Atorvastatin [Lipitor] 40 mg PO HS tab 03/25/17 [Rx] Metoprolol Tartrate [Lopressor] 100 mg PO BID 07/09/17 [History] Apixaban [Eliquis] 5 mg PO BID 03/21/21 [History] Furosemide [Lasix] 20 mg PO DAILY 03/21/21 [History] Insulin Aspart (For Pump) [NovoLOG (For Pump)] 0.01 unit SQ-PUMP CONTINUOUS 03/21/21 [History] Losartan Potassium [Cozaar] 50 mg PO DAILY 03/21/21 [History] Prednisolone Acetate/Pf [Prednisolone Acet 1% Eye Drop] 2 drops RIGHT EYE BID 03/21/21 [History] Furosemide [Lasix] 20 mg PO HS #30 tab 03/25/21 [Rx] Metoprolol Tartrate [Lopressor] 50 mg PO TID #90 tab 03/25/21 [Rx] Follow up Appointment(s)/Referral(s): Velasquez Lazaro MD [STAFF PHYSICIAN] - 2 Weeks Carlos Tabor MD [Primary Care Provider] - 1-2 days Bal Soler MD [STAFF PHYSICIAN] - 1 Week Discharge Disposition: HOME WITH HOME HEALTH SERVICES
--- NOTE | 2021-03-25 10:02 | P.PN ---
Subjective This is a pleasant 80-year-old female past medical history significant for coronary artery disease, valvular heart disease status post aortic valve replacement 2016, sick sinus syndrome status post dual-chamber pacemaker placement 2017 ([employer]), diabetes mellitus, paroxysmal atrial fibrillation, hypertension, dyslipidemia and CVA. She follows my office with Dr. Lazaro. She is seen and examined sitting up in the recliner in no acute distress. She continues to require oxygen via nasal cannula. Blood pressure 103/56 heart rate 65 afebrile maintaining oxygen saturation on nasal cannula. Laboratory data from today continues to be pending at this time. Currently maintained on IV Lasix. 24-hour urine output is 900 ml. 03/25/2021 Pt seen and examined sitting up in bed in no acute distress. She denies chest pain and states her breathing has greatly improved since admission, however she continues to be on 3L nasal cannula. Blood pressure 136/77 heart rate 66 afebrile and maintaining oxygen saturation on nasal cannula. Repeat chest x-ray this morning reveals bilateral infiltrates and small effusions. GENERAL: Well-appearing, well-nourished and in no acute distress. NECK: Supple without JVD or thyromegaly. LUNGS: Breath sounds clear to auscultation bilaterally. Respiration equal and unlabored. No wheezes, rales or rhonchi. HEART: Regular rate and rhythm with systolic ejection murmur at the base, no rubs or gallops. S1 and S2 heard. EXTREMITIES: Normal range of motion, no edema. No clubbing or cyanosis. Peripheral pulses intact. ASSESSMENT Acute on chronic diastolic heart failure Chest pain, atypical Hypoxia Coronary artery disease Valvular heart disease status post aortic valve replacement Sick sinus syndrome status post permanent pacemaker implantation Hypertension Dyslipidemia PLAN Home oxygen needs to be assess by the nurse this morning. Stable for discharge from a cardiac perspective. Follow up with Dr. Lazaro in the office in 1-2 weeks. Nurse Practitioner note has been reviewed, I agree with a documented findings and plan of care. Patient was seen and examined. Objective - Vital Signs Vital signs: Vital Signs Temp 98.2 F 03/25/21 07:00 Pulse 66 03/25/21 07:00 Resp 17 03/25/21 07:00 BP 136/77 03/25/21 07:00 Pulse Ox 93 L 03/25/21 07:00 Intake & Output 03/24/21 03/25/2103/25/21 18:59 06:59 18:59 Intake Total 118 118 Balance 118 118 Weight 78.8 kg Intake: Oral 118 118 Other: Voiding Method Indwelling Catheter Indwelling Catheter Indwelling Catheter - Labs CBC & Chem 7: 03/23/21 04:56 03/24/21 06:04 Labs: Abnormal Lab Results - Last 24 Hours (Table) 03/24/21 03/24/21 03/24/21 Range/Units 06:04 11:50 17:41 Potassium 3.3 L (3.5-5.5) mmol/L Anion Gap 14.50 H (4.00-12.00) mmol/L BUN 32.0 H (9.0-27.0) mg/dL Est GFR (CKD-EPI)AfAm 41.6 L (60.0-200.0) Est GFR (CKD-EPI)NonAf 35.9 L (60.0-200.0) BUN/Creatinine Ratio 22.86 H (12.00-20.00) Ratio Glucose 229 H (70-110) mg/dL POC Glucose (mg/dL) 239 H 317 H (75-99) mg/dL 03/24/21 03/25/21 Range/Units 20:34 07:36 Potassium (3.5-5.5) mmol/L Anion Gap (4.00-12.00) mmol/L BUN (9.0-27.0) mg/dL Est GFR (CKD-EPI)AfAm (60.0-200.0) Est GFR (CKD-EPI)NonAf (60.0-200.0) BUN/Creatinine Ratio (12.00-20.00) Ratio Glucose (70-110) mg/dL POC Glucose (mg/dL) 343 H 150 H (75-99) mg/dL Microbiology - Last 24 Hours (Table) 03/21/21 20:18 Blood Culture - Preliminary Blood No Growth after 72 hours
--- NOTE | 2021-03-25 11:21 | P.PN ---
Subjective Progress Note Date: 03/25/21 Principal diagnosis: Atypical chest pain 80-year-old female patient admitted to the hospital because of chest pain. The pain was mainly across the left anterior chest area. It was all day and lasted for almost 24 hours on the day of his admission and she also had pain overnight. Not related to breathing.. She is known to have a nonocclusive coronary artery disease, previous cardiac catheterization from December 2016 showed no significant coronary artery disease. She is also known to have severe aortic stenosis and she has undergone aortic valve replacement back in 2016 I was involved in her care back then. She has also history of sick sinus syndrome and she has chambe r pacemaker in place. The patient had an echocardiogram from December 2018 showing stable aortic valve prosthesis and normal ejection fraction. Currently, she is afebrile. No cough or sputum production. No hemoptysis or pleurisy. She had some increased swelling lower extremity and she was started on IV Lasix. She was also given a combination of Zosyn and Levaquin. Chest x-ray showing some cardiomegaly with mild pulmonary vascular congestion. She is on room air oxygen. She is sitting up on a chair and she is calm and comfortable. No recent pneumonias. On today's evaluation of a 2020, the patient is feeling of any chest pain. She has no new complaints. Echocardiogram was done. The patient has an ejection fraction of 50-55%. The patient also has a component of moderate mitral regurgitation, mild mitral stenosis, mild aortic stenosis, moderate concentric LVH. For now, the patient is on Lasix 40 mg IV every 12 hours. The patient is on long-term medical condition with Eliquis 5 mg by mouth. She is also currently on oxygen at 3 L per minute nasal cannula. The cardiac rhythm is paced. On 03/24/2021 patient seen in follow-up on medical surgical floor. She sitting up in the recliner, in no acute distress, she is currently on 3 L of oxygen and the pulse ox is 92%, vital signs have been stable, her breathing is improving, she remains on once daily dose of Lasix, she is in negative nitrogen 100 mL net fluid balance over the last 24 hours. No recent chest x-ray, other than the one obtained on admission. No complaints of chest pain, lung sounds reveal diminished breath sounds with some diminished breath sounds at bilateral bases, proBNP came back at 705, which is down from 1510. Potassium is 3.3, CO2 is 27, BUN is 32, and creatinine is 1.4. No acute events overnight, cardiology is following and is planning on transitioning the patient to oral diuretics. The patient is seen today 03/25/2021 in follow-up on the regular medical floor. She is currently sitting up in the bedside. Awake and alert in no acute distress. Maintaining O2 saturations in the 90s on 3 L/m per nasal cannula. She's been afebrile. Hemodynamically stable. X-ray reveals some mild venous congestion. Blood culture revealed no growth. Urine culture revealed no growth. Blood glucose 150. Remains on diuretics. Anticoagulated with Eliquis. Objective - Vital Signs Vital signs: Vital Signs Temp 98.2 F 03/25/21 07:00 Pulse 66 03/25/21 07:00 Resp 17 03/25/21 07:00 BP 136/77 03/25/21 07:00 Pulse Ox 93 L 03/25/21 07:00 Intake & Output 03/24/21 03/25/21 03/25/21 18:59 06:59 18:59 Intake Total 118 118 Balance 118 118 Weight 78.8 kg Intake: Oral 118 118 Other: Voiding Method Indwelling Catheter Indwelling Catheter Indwelling Catheter # Voids 1 - Exam GENERAL EXAM: Alert, pleasant 72-year-old female patient, on 3 L nasal cannula, comfortable in no apparent distress. HEAD: Normocephalic. EYES: Normal reaction of pupils, equal size. NOSE: Clear with pink turbinates. THROAT: No erythema or exudates. NECK: No masses, no JVD. CHEST: No chest wall deformity. LUNGS: Equal air entry with faint crackles in the posterior bases, no wheeze, rhonchi or dullness. CVS: S1 and S2 normal with no audible murmur, regular rhythm. ABDOMEN: No hepatosplenomegaly, normal bowel sounds, no guarding or rigidity. SPINE: No scoliosis or deformity SKIN: No rashes CENTRAL NERVOUS SYSTEM: No focal deficits, tone is normal in all 4 extremities. EXTREMITIES: There is no peripheral edema. No clubbing, no cyanosis. Peripheral pulses are intact. - Labs CBC & Chem 7: 03/23/21 04:56 03/24/21 06:04 Labs: Abnormal Lab Results - Last 24 Hours (Table) 03/24/21 03/24/21 03/24/21 Range/Units 06:04 11:50 17:41 Potassium 3.3 L (3.5-5.5) mmol/L Anion Gap 14.50 H (4.00-12.00) mmol/L BUN 32.0 H (9.0-27.0) mg/dL Est GFR (CKD-EPI)AfAm 41.6 L (60.0-200.0) Est GFR (CKD-EPI)NonAf 35.9 L (60.0-200.0) BUN/Creatinine Ratio 22.86 H (12.00-20.00) Ratio Glucose 229 H (70-110) mg/dL POC Glucose (mg/dL) 239 H 317 H (75-99) mg/dL 03/24/21 03/25/21 Range/Units 20:34 07:36 Potassium (3.5-5.5) mmol/L Anion Gap (4.00-12.00) mmol/L BUN (9.0-27.0) mg/dL Est GFR (CKD-EPI)AfAm (60.0-200.0) Est GFR (CKD-EPI)NonAf (60.0-200.0) BUN/Creatinine Ratio (12.00-20.00) Ratio Glucose (70-110) mg/dL POC Glucose (mg/dL) 343 H 150 H (75-99) mg/dL Microbiology - Last 24 Hours (Table) 03/21/21 20:18 Blood Culture - Preliminary Blood No Growth after 72 hours Assessment and Plan Assessment: 1 chest pain currently under investigation, based on a catheterization from 2017, the patient had no significance CAD. Current EKG and cardiac enzymes are negative. Essentially atypical 2 aortic valve stenosis post AVR and the patient has a preserved LV function 3 history of sick sinus syndrome post pacemaker insertion 4 history of CVA with some residual deficits with speech 5 diabetes mellitus 6 hypertension 7 hyperlipidemia 8 paroxysmal fibrillation 9 scoliosis Plan: The patient was seen and evaluated by Dr. Soler Chest x-ray, medications reviewed Remains on diuretics Cleared for discharge from pulmonary standpoint Follow-up in the office in 1-2 weeks' I, the cosigning physician, performed a history & physical examination of the patient. Lungs sounds with faint crackles in posterior bases. Maintaining good O2 saturations in the 90s on 3 L/m per nasal cannula. I discussed the assessment and plan of care with my nurse practitioner, Zara Quevedo. I attest to the above note as dictated by her.
== END 2021-03-25 11:30 | disposition home health service (06) | DRG 292 ==
LOC: EC 00:33 → 1SOBS 02:31 → 6NMEDSUR 12:39 → OBSVTOIN 03-22 12:37
PROVIDERS: ADMIT Family Medicine; ATTEND Family Medicine
DX: I11.0 Hypertensive heart disease with heart failure (principal); E44.1 Mild protein-calorie malnutrition; E87.3 Alkalosis; E10.40 Type 1 diabetes mellitus with diabetic neuropathy, unspecified; E66.9 Obesity, unspecified; E78.5 Hyperlipidemia, unspecified; I50.43 Acute on chronic combined systolic (congestive) and diastolic (congestive) heart failure; T50.2X5A Adverse effect of carbonic-anhydrase inhibitors, benzothiadiazides and other diuretics, initial encounter; I69.328 Other speech and language deficits following cerebral infarction; M41.9 Scoliosis, unspecified; R09.02 Hypoxemia; Z68.34 Body mass index [BMI] 34.0-34.9, adult; J45.909 Unspecified asthma, uncomplicated; I48.0 Paroxysmal atrial fibrillation; F41.9 Anxiety disorder, unspecified; G89.29 Other chronic pain; I08.0 Rheumatic disorders of both mitral and aortic valves; I25.10 Atherosclerotic heart disease of native coronary artery without angina pectoris; Z79.01 Long term (current) use of anticoagulants; Z79.02 Long term (current) use of antithrombotics/antiplatelets; Z95.2 Presence of prosthetic heart valve; Z79.4 Long term (current) use of insulin; Z79.82 Long term (current) use of aspirin; Z79.899 Other long term (current) drug therapy; Z90.710 Acquired absence of both cervix and uterus; Z95.0 Presence of cardiac pacemaker; Z96.41 Presence of insulin pump (external) (internal); Z96.653 Presence of artificial knee joint, bilateral; Z90.89 Acquired absence of other organs; Z98.890 Other specified postprocedural states; Z87.820 Personal history of traumatic brain injury; Z88.5 Allergy status to narcotic agent; Z88.0 Allergy status to penicillin; Z88.8 Allergy status to other drugs, medicaments and biological substances; Z91.011 Allergy to milk products; Z80.9 Family history of malignant neoplasm, unspecified; Z84.1 Family history of disorders of kidney and ureter
CPT/HCPCS: 36415; 71045; 80048; 80053; 81001; 82550; 82553; 83036; 83690; 83735; 83880; 84100; 84484; 85025; 85610; 85730; 87040; 87086; 93005; 93306; 96374; 99285

== ENCOUNTER 2024-06-06 11:38 | Emergency (ER) | payer MEDICARE ==
[2024-06-06 11:47] VITALS: RESP 18; TEMP 98.3
--- NOTE | 2024-06-06 12:30 | ED ---
General Adult HPI - General Chief complaint: Fall Stated complaint: Fall Time Seen by Provider: 06/06/24 11:45 Source: patient, EMS, RN notes reviewed, old records reviewed Mode of arrival: EMS Limitations: no limitations - History of Present Illness Initial comments: This is a an 83-year-old female who presents to the emergency department stating that she is blind and she tripped over a laundry basket and did not hit her head but she does have some neck pain and has had a neck surgery in the past. Patient states the neck pain does not appear to be new to her but she is not a great historian. Patient states she landed forward but her back hurts in the thoracic region. Patient denies any chest pain difficulty breathing shortness of breath or patient has abdominal pain patient has nausea vomiting diarrhea. Patient also complains of a little bit of lateral right knee pain - Related Data Home Medications Medication Instructions Recorded Confirmed amLODIPine [Norvasc] 5 mg PO DAILY 07/17/16 03/21/21 Metoprolol Tartrate [Lopressor] 100 mg PO BID 07/09/17 03/21/21 Apixaban [Eliquis] 5 mg PO BID 03/21/21 03/21/21 Furosemide [Lasix] 20 mg PO DAILY 03/21/21 03/21/21 Insulin Aspart (For Pump) [NovoLOG 0.01 unit SQ-PUMP CONTINUOUS 03/21/21 03/21/21 (For Pump)] Losartan Potassium [Cozaar] 50 mg PO DAILY 03/21/21 03/21/21 Prednisolone Acetate/Pf 2 drops RIGHT EYE BID 03/21/21 03/21/21 [Prednisolone Acet 1% Eye Drop] Previous Rx's Medication Instructions Recorded Atorvastatin [Lipitor] 40 mg PO HS tab 03/25/17 Furosemide [Lasix] 20 mg PO HS #30 tab 03/25/21 Metoprolol Tartrate [Lopressor] 50 mg PO TID #90 tab 03/25/21 Allergies Allergy/AdvReac Type Severity Reaction Status Date / Time adhesive tape Allergy Rash/Hives Verified 06/06/24 11:45 codeine Allergy Rash/Hives Verified 06/06/24 11:45 milk Allergy Unknown Verified 06/06/24 11:45 orange Allergy Rash/Hives Verified 06/06/24 11:45 metformin [From Glucophage] AdvReac Nausea & Verified 06/06/24 11:45 Vomiting Penicillins AdvReac Nausea Verified 06/06/24 11:45 ANESTHESIA (UNKNOWN) Allergy Unknown Uncoded 06/06/24 11:45 Review of Systems ROS Statement: Those systems with pertinent positive or pertinent negative responses have been documented in the HPI. ROS Other: All systems not noted in ROS Statement are negative. Past Medical History Past Medical History: Coronary Artery Disease (CAD), Diabetes Mellitus, Hypertension Additional Past Medical History / Comment(s): CAD, severe aortic stenosis with aortic valve replacement, sick sinus syndrome with a previous pacemaker insertion, previous history of CVA, chronic back pain, neuropathy, scoliosis, endometriosis, and a history of brain concussion and diabetes mellitus. History of Any Multi-Drug Resistant Organisms: None Reported Past Surgical History: Appendectomy, Breast Surgery, Cardiac Valve Replacement, Heart Catheterization, Hysterectomy, Joint Replacement, Pacemaker, Tonsillectomy Additional Past Surgical History / Comment(s): aortic valve replacement, had chest tube for pleural effusion post replacment. 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, lt knee replacments Past Anesthesia/Blood Transfusion Reactions: No Reported Reaction Type of Cardiac Device: Permanent Pacemaker Device Placement Date:: 03/12/17 Past Psychological History: No Psychological Hx Reported Smoking Status: Never smoker Past Alcohol Use History: None Reported Past Drug Use History: None Reported - Past Family History Mother Family Medical History: Cancer Son(s) Family Medical History: Rheumatoid Arthritis (RA) Additional Family Medical History / Comment(s): RHEUMATOID ARTHRITIS Father History Unknown: Yes Family Medical History: No Reported History Additional Family Medical History / Comment(s): from kidney failure General Exam - General Exam Comments Initial Comments: GENERAL: Patient is well-developed and well-nourished. Patient is nontoxic and well- hydrated and is in no acute distress. ENT: Neck is soft and supple. No significant lymphadenopathy is noted. Oropharynx is clear. Moist mucous membranes. Neck has full range of motion without eliciting any pain. There is no thyroid enlargement and no masses were felt. EYES: The sclera were anicteric and conjunctiva were pink and moist. Extraocular movements were intact and pupils were equal round and reactive to light. Eyelids were unremarkable. PULMONARY: Unlabored respirations. Good breath sounds bilaterally. No audible rales rhonchi or wheezing was noted. CARDIOVASCULAR: There is a regular rate and rhythm without any murmurs gallops or rubs. ABDOMEN: Soft and nontender with normal bowel sounds. SKIN: Skin is clear with no lesions or rashes and otherwise unremarkable. NEUROLOGIC: Patient is alert and oriented x3. Cranial nerves II through XII are grossly intact. Motor and sensory are also intact. Normal speech, volume and content. Symmetrical smile. MUSCULOSKELETAL: Normal extremities with adequate strength and full range of motion. Some right lateral knee pain. Patient also has some thoracic back pain at about the T4 area LYMPHATICS: No significant lymphadenopathy is noted PSYCHIATRIC: Normal psychiatric evaluation. Limitations: no limitations Course Vital Signs 06/06/24 11:42 Temperature 98.3 F Respiratory 18 Rate Medical Decision Making - Medical Decision Making EKG is interpreted by myself but EKG shows a sinus rhythm 89 bpm TN interval is 252 QRS is 149 QT interval is 414 QTc is 461. Patient's EKG shows right bundle branch block. Was pt. sent in by a medical professional or institution (, PA, PROFESSIONAL NURSING ASSISTANT, urgent care, hospital, or custodial...) When possible be specific @ -No Did you speak to anyone other than the patient for history (EMS, parent, family, police, friend...)? What history was obtained from this source @ -No Did you review nursing and triage notes (agree or disagree)? Why? @ -I reviewed and agree with nursing and triage notes Were old charts reviewed (outside hosp., previous admission, EMS record, old EKG, old radiological studies, urgent care reports/EKG's, custodial records)? Report findings @ -No old charts were reviewed Differential Diagnosis? @ -Thoracic spine fracture, cervical spine fracture, intracranial hemorrhage, this is not an all-inclusive list EKG interpreted by me (3pts min.). @ -As above X-rays interpreted by me (1pt min.). @ -None done CT interpreted by me (1pt min.). @ -CT of the brain shows no acute abnormality. CT of the C-spine shows no acute abnormality. CT of thoracic spine shows no acute abnormality. U/S interpreted by me (1pt. min.). @ -None done What testing was considered but not performed or refused? (CT, X-rays, U/S, labs)? Why? @ -None What meds were considered but not given or refused? Why? @ -None Did you discuss the management of the patient with other professionals (professionals i.e. DrKerry, PA, PROFESSIONAL NURSING ASSISTANT, lab, RT, psych nurse, director social service, director outpatient services, teacher, forest fire control officer, disability case manager)? Give summary @ -No Was smoking cessation discussed for >3mins.? @ -No Was critical care preformed (if so, how long)? @ -No Were there social determinants of health that impacted care today? How? (Homelessness, low income, unemployed, alcoholism, drug addiction, transportation, low edu. Level, literacy, decrease access to med. care, nursing home, rehab)? @ -No Was there de-escalation of care discussed even if they declined (Discuss DNR or withdrawal of care, Hospice)? DNR status @ -No What co-morbidities impacted this encounter? (DM, HTN, Smoking, COPD, CAD, Cancer, CVA, ARF, Chemo, Hep., AIDS, mental health diagnosis, sleep apnea, morbid obesity)? @ -None Was patient admitted / discharged? Hospital course, mention meds given and route, prescriptions, significant lab abnormalities, going to OR and other pertinent info. @ -Patient had no acute injury and when I went back to reevaluate her she stated she was feeling better and was up and ambulatory with a walker per her baseline and felt no different. Did not want anything for her thoracic back pain Undiagnosed new problem with uncertain prognosis? @ -No Drug Therapy requiring intensive monitoring for toxicity (Heparin, Nitro, Insulin, Cardizem)? @ -No Were any procedures done? @ -No Diagnosis/symptom? @ -Fall Acute, or Chronic, or Acute on Chronic? @ -Acute Uncomplicated (without systemic symptoms) or Complicated (systemic symptoms)? @ -Uncomplicated Side effects of treatment? @ -No Exacerbation, Progression, or Severe Exacerbation? @ -No Poses a threat to life or bodily function? How? (Chest pain, [place], [place], pneumonia, PE, COPD, DKA, ARF, appy, cholecystitis, CVA, Diverticulitis, Homicidal, Suicidal, threat to staff... and all critical care pts) @ -No Diagnosis/symptom? @ -Thoracic back pain Acute, or Chronic, or Acute on Chronic? @ -Acute Uncomplicated (without systemic symptoms) or Complicated (systemic symptoms)? @ -Uncomplicated Side effects of treatment? @ -None Exacerbation, Progression, or Severe Exacerbation] @ -No Poses a threat to life or bodily function? @ -No Disposition Clinical Impression: Fall, Thoracic back pain Disposition: HOME SELF-CARE Instructions (If sedation given, give patient instructions): Fall Prevention for Older Adults (ED) Is patient prescribed a controlled substance at d/c from ED?: No Referrals: Carlos Tabor MD [Primary Care Provider] - 1-2 days Time of Disposition: 13:48
--- NOTE | 2024-06-06 13:09 | CT ---
EXAMINATION TYPE: CT brain cspine wo con CT DLP: 2180.9 mGycm, Automated exposure control for dose reduction was used. DATE OF EXAM: 06/06/2024 12:59 PM COMPARISON: CT brain 07/10/2017. CLINICAL INDICATION:Female, 83 years old with history of Trauma; PAIN AFTER FALL AT HOME TODAY. TECHNIQUE: Brain: Multiple axial CT images of the brain were obtained without IV contrast. Cspine: Axial CT images from the skull base to the inferior aspect of T2 we obtained without intraven ous contrast. Coronal and sagittal reformatted images were also reviewed. FINDINGS: Brain: Extra-axial spaces: No abnormal extra-axial fluid collections. Ventricular system: Within normal limits Cerebral parenchyma: Diffuse cerebral atrophy which appears age appropriate. No acute intraparenchyma l hemorrhage or mass effect. Remote lacunar injury within the left thalamus. The gaona-white junction is well differentiated. Confluent hypoattenuating areas are seen within the subcortical and perivent ricular white matter. Cerebellum: Unremarkable. Mass effect: No evidence of midline shift. Intracranial vasculature: Atherosclerotic calcifications of the intracranial vessels. Soft tissues: Normal. Calvarium/osseous structures: No depressed skull fracture. Paranasal sinuses and mastoid air cells: Clear. Visualized orbits: Right aphakia Cervical spine: Fracture: None. Osseous structures: Diffuse bone demineralization. Fusion of the C5-C6 vertebral bodies. Fusion of th e left C4-C5 facet joint. Fusion of the right C2-C3 facet joint. Multilevel degenerative disc disease changes with endplate spurring and disc osteophyte complex's. Prominent multilevel anterior osteophy tosis. Vertebral alignment: Grade 1 anterolisthesis of C3 and C4 and C4 on C5. Likely degenerative. Spinal canal/Neural Foramina: Disc osteophyte complexes at C3-C4 with at least mild spinal canal sten osis. Facet joint uncovertebral joint arthropathy scattered throughout the cervical spine with varyin g degrees of neural foraminal stenosis. Neck soft tissues: Prevertebral soft tissues are within normal limits. Other: The airway is patent. The lung apices are clear. IMPRESSION: 1. No acute intracranial process. 2. Remote left thalamic lacunar injury along with nonspecific white matter changes likely secondary to chronic microangiopathy. 3. No evidence of cervical spine fracture. 4. Moderate multilevel degenerative disc disease. 5. Grade 1 anterolisthesis of C3 and C4 and C4 on C5. Likely degenerative. [facility], , 06/06/2024 1:06 PM
--- NOTE | 2024-06-06 13:14 | CT ---
EXAMINATION TYPE: CT thoracic spine wo con CT DLP: 2180.9 mGycm, Automated exposure control for dose reduction was used. DATE OF EXAM: 06/06/2024 1:00 PM COMPARISON: No direct comparisons. CLINICAL INDICATION:Female, 83 years old with history of Fall; PH[facility], PAIN AFTER FALL AT HOME TODAY. TECHNIQUE: Axial images of the thoracic spine were obtained without contrast. Coronal and sagittal re formats were performed. FINDINGS: Diffuse bone demineralization. The thoracic vertebral bodies have preserved heights. No spo ndylosis is. Mild dextrocurvature of the thoracic spine. Mild multilevel degenerative disc disease wi th disc space narrowing, endplate sclerosis, and vacuum disc disease. DISH throughout the thoracic sp ine. I do not see any evidence of extradural defects nor significant spinal canal narrowing at any thoraci c vertebral body level. Basilar dependent subsegmental atelectasis. Cardiomegaly. Aortic valvular replacement. Atheroscleroti c calcification of the aorta and its branches. Cardiac pacemaker leads. Post-CABG changes. Median dallin rnotomy wires. Colonic diverticulosis. IMPRESSION: 1. No acute thoracic spine fracture. 2. Diffuse idiopathic skeletal hyperostosis with mild multilevel degenerative disc disease. [facility], , 06/06/2024 1:11 PM
[2024-06-06 15:17] VITALS: BP 149/95; PULSE 80
== END 2024-06-06 15:17 | disposition home or self-care (01) ==
LOC: EC 11:38
DX: M54.6 Pain in thoracic spine (principal); I45.10 Unspecified right bundle-branch block; Z88.4 Allergy status to anesthetic agent; Z88.0 Allergy status to penicillin; Z91.011 Allergy to milk products; Z91.018 Allergy to other foods; Z88.5 Allergy status to narcotic agent; Z91.09 Other allergy status, other than to drugs and biological substances; W01.0XXA Fall on same level from slipping, tripping and stumbling without subsequent striking against object, initial encounter
CPT/HCPCS: 70450; 72125; 72128; 93005; 99284

== ENCOUNTER 2024-11-28 22:55 | Inpatient (IN) | payer MEDICARE ==
--- NOTE | 2024-11-28 23:33 | ED ---
GI Bleed HPI - General Chief complaint: GI Bleed Stated complaint: GI Bleed Time Seen by Provider: 11/28/24 23:19 Source: patient, EMS Mode of arrival: EMS Limitations: no limitations - History of Present Illness Initial comments: This patient is an 84-year-old woman who presents to have evaluation for passing blood at bowel movement. The patient states that she had used the bathroom and then after getting up from the commode family noticed that there was blood in the water and also on the commode. The patient denies abdominal pain, perianal pain. She is not having symptoms of anemia, lightheadedness, diaphoresis, dyspnea, palpitations or syncope. Of note, the patient does have generalized weakness and has had 4 or 5 falls over the course of the past few weeks. She does have some low back pain after her the last fall. The patient's family did discuss by phone with the nurse that they are not able to care for the patient at home, she is falling and they are not able to get her up and they are concerned that she may need to be placed somewhere. complaint: blood on toilet paper Onset/Timin -: days(s) Severity scale (1-10): 0 Quality: painless Consistency: now resolved Improves with: none Worsens with: none Associated Symptoms: denies other symptoms - Related Data Home Medications Medication Instructions Recorded Confirmed amLODIPine [Norvasc] 5 mg PO DAILY 07/17/16 11/29/24 Metoprolol Tartrate [Lopressor] 100 mg PO BID 07/09/17 11/29/24 Losartan Potassium [Cozaar] 50 mg PO DAILY 03/21/21 11/29/24 Acetaminophen Tab [Tylenol] 325 mg PO BID 06/06/24 11/29/24 Insulin Aspart [NovoLOG Flexpen] 25 units SQ TID-W/MEALS 06/06/24 11/29/24 Multivitamins, Thera [Multivitamin 1 tab PO DAILY 11/29/24 11/29/24 (formulary)] icosapent ethyL [Icosapent Ethyl] 2 gm PO BID 11/29/24 11/29/24 Previous Rx's Medication Instructions Recorded Atorvastatin [Lipitor] 40 mg PO HS tab 03/25/17 Hydrocortisone Suppository 25 mg RECTAL BID #60 suppositor 11/30/24 [Anusol-Hc] Allergies Allergy/AdvReac Type Severity Reaction Status Date / Time adhesive tape Allergy Rash/Hives Verified 11/29/24 09:08 Anesthetics - Amide Type - Allergy Unknown Verified 11/29/24 09:08 Select A Anesthetics - Karlee Type- Allergy Unknown Verified 11/29/24 09:08 Parabens codeine Allergy Rash/Hives Verified 11/29/24 09:08 milk Allergy Unknown Verified 11/29/24 09:08 orange Allergy Rash/Hives Verified 11/29/24 09:08 metformin [From Glucophage] AdvReac Nausea & Verified 11/29/24 09:08 Vomiting Penicillins AdvReac Nausea Verified 11/29/24 09:08 Review of Systems ROS Statement: Those systems with pertinent positive or pertinent negative responses have been documented in the HPI. ROS Other: All systems not noted in ROS Statement are negative. Constitutional: Reports: weakness. Denies: fever, chills Eyes: Reports: vision change (Legally blind) Respiratory: Denies: cough, dyspnea Cardiovascular: Denies: chest pain, palpitations, orthopnea, edema, syncope Gastrointestinal: Reports: hematochezia. Denies: abdominal pain, nausea, vomiting, diarrhea, constipation, melena Genitourinary: Denies: dysuria, hematuria Musculoskeletal: Denies: back pain Skin: Denies: rash Neurological: Denies: headache, weakness, numbness Hematological/Lymphatic: Denies: easy bleeding Past Medical History Past Medical History: Coronary Artery Disease (CAD), Diabetes Mellitus, Hypertension Additional Past Medical History / Comment(s): CAD, severe aortic stenosis with aortic valve replacement, sick sinus syndrome with a previous pacemaker insertion, previous history of CVA, chronic back pain, neuropathy, scoliosis, endometriosis, and a history of brain concussion and diabetes mellitus. History of Any Multi-Drug Resistant Organisms: None Reported Past Surgical History: Appendectomy, Breast Surgery, Cardiac Valve Replacement, Heart Catheterization, Hysterectomy, Joint Replacement, Pacemaker, Tonsillectomy Additional Past Surgical History / Comment(s): aortic valve replacement, had chest tube for pleural effusion post replacment. 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, lt knee replacments Past Anesthesia/Blood Transfusion Reactions: No Reported Reaction Type of Cardiac Device: Permanent Pacemaker Device Placement Date:: 03/12/17 Past Psychological History: No Psychological Hx Reported Smoking Status: Never smoker Past Alcohol Use History: None Reported Past Drug Use History: None Reported - Past Family History Mother Family Medical History: Cancer Son(s) Family Medical History: Rheumatoid Arthritis (RA) Additional Family Medical History / Comment(s): RHEUMATOID ARTHRITIS Father History Unknown: Yes Family Medical History: No Reported History Additional Family Medical History / Comment(s): from kidney failure General Exam Limitations: no limitations General appearance: alert, in no apparent distress Head exam: Present: atraumatic, normocephalic Eye exam: Present: normal appearance. Absent: scleral icterus, conjunctival injection ENT exam: Present: normal oropharynx Neck exam: Present: normal inspection. Absent: full ROM Respiratory exam: Present: normal lung sounds bilaterally. Absent: respiratory distress, wheezes, rales, rhonchi, stridor, accessory muscle use Cardiovascular Exam: Present: regular rate, normal rhythm, normal heart sounds. Absent: systolic murmur, diastolic murmur, rubs, gallop GI/Abdominal exam: Present: soft. Absent: distended, tenderness, guarding, rebound, rigid, mass, pulsatile mass Rectal exam: Present: normal rectal tone, hemorrhoids. Absent: decreased rectal tone, mass, tenderness Extremities exam: Present: normal inspection, normal capillary refill, pedal edema. Absent: calf tenderness Back exam: Present: paraspinal tenderness, vertebral tenderness. Absent: normal inspection, CVA tenderness (R), CVA tenderness (L) Neurological exam: Present: alert, CN II-XII intact. Absent: motor sensory deficit Skin exam: Present: warm, dry, intact, normal color. Absent: rash Course Vital Signs 11/28/24 11/29/24 11/29/24 22:56 00:30 01:00 Temperature 98.8 F Pulse Rate 82 78 76 Respiratory 16 16 16 Rate Blood Pressure 137/74 133/62 130/62 O2 Sat by Pulse 97 95 95 Oximetry 11/29/24 11/29/24 11/29/24 03:00 05:00 07:00 Temperature Pulse Rate 76 68 71 Respiratory 16 16 16 Rate Blood Pressure 121/61 137/68 145/65 O2 Sat by Pulse 93 L 94 L 93 L Oximetry 11/29/24 11/29/24 10:50 12:12 Temperature 97.9 F 97.8 F Pulse Rate 70 80 Respiratory 18 18 Rate Blood Pressure 152/66 147/86 O2 Sat by Pulse 92 L 93 L Oximetry Medical Decision Making - Medical Decision Making Patient is an 84-year-old woman brought to evaluation for generalized weakness and having blood with last bowel movement. The patient does have external hemorrhoid with clot, no active bleeding. There is no melanotic stool. The patient also reportedly not able to be cared for at home and family is concerned that she will need placement. The patient will be admitted to have discharge planning Was pt. sent in by a medical professional or institution (, PA, UPHOLSTERY DEPARTMENT SUPERVISOR, urgent care, hospital, or assisted...) When possible be specific @ -[No] Did you speak to anyone other than the patient for history (EMS, parent, family, police, friend...)? What history was obtained from this source @ -[No] Did you review nursing and triage notes (agree or disagree)? Why? @ -[I reviewed and agree with nursing and triage notes] Were old charts reviewed (outside hosp., previous admission, EMS record, old EKG, old radiological studies, urgent care reports/EKG's, assisted records)? Report findings @ -[No old charts were reviewed] Differential Diagnosis (chest pain, altered mental status, abdominal pain women, abdominal pain men, vaginal bleeding, weakness, fever, dyspnea, syncope, headache, dizziness, GI bleed, back pain, seizure, CVA, palpatations, mental health, musculoskeletal)? @ -[Differential GI Bleed: Esophageal varices, aortoenteric fistula, Izzy-Ly, gastritis, peptic ulcer disease, diverticulosis, inflammatory bowel disease, hemorrhoids, fissure, colitis, malignancy, Meckel's diverticulum, this is not meant to be an all- inclusive list. EKG interpreted by me (3pts min.). @ -[As above] X-rays interpreted by me (1pt min.). @ -[None done] CT interpreted by me (1pt min.). @ -[None done] U/S interpreted by me (1pt. min.). @ -[None done] What testing was considered but not performed or refused? (CT, X-rays, U/S, labs)? Why? @ -[None] What meds were considered but not given or refused? Why? @ -[None] Did you discuss the management of the patient with other professionals (professionals i.e. , PA, UPHOLSTERY DEPARTMENT SUPERVISOR, lab, RT, psych nurse, home health care social worker, completion manager, teacher, animal services officer, case assembler)? Give summary @ -[No] Was smoking cessation discussed for >3mins.? @ -[No] Was critical care preformed (if so, how long)? @ -[No] Were there social determinants of health that impacted care today? How? (Homelessness, low income, unemployed, alcoholism, drug addiction, transportation, low edu. Level, literacy, decrease access to med. care, group home, rehab)? @ -[No] Was there de-escalation of care discussed even if they declined (Discuss DNR or withdrawal of care, Hospice)? DNR status @ -[No] What co-morbidities impacted this encounter? (DM, HTN, Smoking, COPD, CAD, Cancer, CVA, ARF, Chemo, Hep., AIDS, mental health diagnosis, sleep apnea, mo rbid obesity)? @ -[None] Was patient admitted / discharged? Hospital course, mention meds given and route, prescriptions, significant lab abnormalities, going to OR and other pertinent info. @ -[See above Undiagnosed new problem with uncertain prognosis? @ -[No] Drug Therapy requiring intensive monitoring for toxicity (Heparin, Nitro, Insulin, Cardizem)? @ -[No] Were any procedures done? @ -[No] Diagnosis/symptom? @ -[Acute GI bleed External hemorrhoid Mild anemia Hyper glycemia General Debility Acute, or Chronic, or Acute on Chronic? @ -[d acute Uncomplicated (without systemic symptoms) or Complicated (systemic symptoms)? @ -[Uncomplicated Side effects of treatment? @ -[No] Exacerbation, Progression, or Severe Exacerbation? @ -[No] Poses a threat to life or bodily function? How? (Chest pain, USA, CT, pneumonia, PE, COPD, DKA, ARF, appy, cholecystitis, CVA, Diverticulitis, Homicidal, Suicidal, threat to staff... and all critical care pts) @ -[No] All treatments are based on ideal body weight as in ED triage - Lab Data Result diagrams: 11/30/24 03:05 11/30/24 03:05 Lab Results 11/28/24 11/28/24 11/28/24 Range/Units 23:20 23:25 23:25 WBC (4.50-10.00) 10*3/uL RBC (4.10-5.20) 10*6/uL Hgb (12.0-15.0) g/dL Hct (37.2-46.3) % MCV (80.0-97.0) fL MCH (27.0-32.0) pg MCHC (32.0-37.0) g/dL Plt Count (140-440) 10*3/uL MPV (9.5-12.2) fL Immature Gran % (Auto) % Neutrophils % % Lymphocytes % % Monocytes % % Eosinophils % % Basophils % % Immature Gran # (0.00-0.04) 10*3/uL Neutrophils # (1.80-7.70) 10*3/uL Lymphocytes # (0.90-5.00) 10*3/uL Monocytes # (0.20-1.00) 10*3/uL Eosinophils # (0.04-0.35) 10*3/uL Basophils # (0.00-0.10) 10*3/uL APTT (22.0-30.0) sec Sodium 140 (137-145) mmol/L Potassium 4.0 (3.5-5.1) mmol/L Chloride 98 (98-107) mmol/L Carbon Dioxide 26 (22-30) mmol/L Anion Gap 16 mmol/L BUN 29 H (7-17) mg/dL Creatinine 1.07 H (0.52-1.04) mg/dL Est GFR (CKD-EPI)AfAm 56 (>60 ml/min/1.73 sqM) Est GFR (CKD-EPI)NonAf 49 (>60 ml/min/1.73 sqM) Glucose 239 H (74-99) mg/dL Lactic Ac Sepsis Rflx Plasma Lactic Acid Pepe 2.1 H* (0.7-2.0) mmol/L Calcium 10.6 H (8.4-10.2) mg/dL Total Bilirubin 0.8 (0.2-1.3) mg/dL AST 35 (14-36) U/L ALT 19 (4-34) U/L Alkaline Phosphatase 153 H (38-126) U/L Troponin I <0.012 (0.000-0.034) ng/mL NT-Pro-B Natriuret Pep 596 pg/mL Total Protein 8.5 H (6.3-8.2) g/dL Albumin 4.9 (3.5-5.0) g/dL Blood Type Blood Type Recheck Bld Type Recheck Status Antibody Screen Spec Expiration Date 11/28/24 11/28/24 11/28/24 Range/Units 23:25 23:40 23:40 WBC 10.09 H (4.50-10.00) 10*3/uL RBC 5.66 H (4.10-5.20) 10*6/uL Hgb 11.3 L (12.0-15.0) g/dL Hct 35.5 L (37.2-46.3) % MCV 62.7 L (80.0-97.0) fL MCH 20.0 L (27.0-32.0) pg MCHC 31.8 L (32.0-37.0) g/dL Plt Count 275 (140-440) 10*3/uL MPV 9.8 (9.5-12.2) fL Immature Gran % (Auto) 0.3 % Neutrophils % 58.8 % Lymphocytes % 29.2 % Monocytes % 9.5 % Eosinophils % 1.5 % Basophils % 0.7 % Immature Gran # 0.03 (0.00-0.04) 10*3/uL Neutrophils # 5.93 (1.80-7.70) 10*3/uL Lymphocytes # 2.95 (0.90-5.00) 10*3/uL Monocytes # 0.96 (0.20-1.00) 10*3/uL Eosinophils # 0.15 (0.04-0.35) 10*3/uL Basophils # 0.07 (0.00-0.10) 10*3/uL APTT 21.0 L (22.0-30.0) sec Sodium (137-145) mmol/L Potassium (3.5-5.1) mmol/L Chloride (98-107) mmol/L Carbon Dioxide (22-30) mmol/L Anion Gap mmol/L BUN (7-17) mg/dL Creatinine (0.52-1.04) mg/dL Est GFR (CKD-EPI)AfAm (>60 ml/min/1.73 sqM) Est GFR (CKD-EPI)NonAf (>60 ml/min/1.73 sqM) Glucose (74-99) mg/dL Lactic Ac Sepsis Rflx Plasma Lactic Acid Pepe (0.7-2.0) mmol/L Calcium (8.4-10.2) mg/dL Total Bilirubin (0.2-1.3) mg/dL AST (14-36) U/L ALT (4-34) U/L Alkaline Phosphatase (38-126) U/L Troponin I (0.000-0.034) ng/mL NT-Pro-B Natriuret Pep pg/mL Total Protein (6.3-8.2) g/dL Albumin (3.5-5.0) g/dL Blood Type O Positive Blood Type Recheck O Pos Bld Type Recheck Status No Antibody Screen NEGATIVE Spec Expiration Date 12/01/2024 - 232411/29/24 11/29/24 11/29/24 Range/Units 00:21 03:29 04:23 WBC 9.69 (4.50-10.00) 10*3/uL RBC 5.57 H (4.10-5.20) 10*6/uL Hgb 10.8 L (12.0-15.0) g/dL Hct 34.6 L (37.2-46.3) % MCV 62.1 L (80.0-97.0) fL MCH 19.4 L (27.0-32.0) pg MCHC 31.2 L (32.0-37.0) g/dL Plt Count 273 (140-440) 10*3/uL MPV 10.2 (9.5-12.2) fL Immature Gran % (Auto) % Neutrophils % % Lymphocytes % % Monocytes % % Eosinophils % % Basophils % % Immature Gran # (0.00-0.04) 10*3/uL Neutrophils # (1.80-7.70) 10*3/uL Lymphocytes # (0.90-5.00) 10*3/uL Monocytes # (0.20-1.00) 10*3/uL Eosinophils # (0.04-0.35) 10*3/uL Basophils # (0.00-0.10) 10*3/uL APTT (22.0-30.0) sec Sodium (137-145) mmol/L Potassium (3.5-5.1) mmol/L Chloride (98-107) mmol/L Carbon Dioxide (22-30) mmol/L Anion Gap mmol/L BUN (7-17) mg/dL Creatinine (0.52-1.04) mg/dL Est GFR (CKD-EPI)AfAm (>60 ml/min/1.73 sqM) Est GFR (CKD-EPI)NonAf (>60 ml/min/1.73 sqM) Glucose (74-99) mg/dL Lactic Ac Sepsis Rflx Y Plasma Lactic Acid Pepe 1.4 (0.7-2.0) mmol/L Calcium (8.4-10.2) mg/dL Total Bilirubin (0.2-1.3) mg/dL AST (14-36) U/L ALT (4-34) U/L Alkaline Phosphatase (38-126) U/L Troponin I (0.000-0.034) ng/mL NT-Pro-B Natriuret Pep pg/mL Total Protein (6.3-8.2) g/dL Albumin (3.5-5.0) g/dL Blood Type Blood Type Recheck Bld Type Recheck Status Antibody Screen Spec Expiration Date Disposition Clinical Impression: Hemorrhoids, Back pain Disposition: ADMITTED IP TO THIS HOSP
[2024-11-28 23:50] LABS: ALT 19 U/L (4-34); AST 35 U/L (14-36); African American GFR (CKD) 56 (>60 ml/min/1.73 sqM); Albumin 4.9 g/dL (3.5-5.0); Alkaline Phosphatase 153 U/L (38-126); Anion Gap 16 mmol/L; Blood Urea Nitrogen 29 mg/dL (7-17); Calcium 10.6 mg/dL (8.4-10.2); Carbon Dioxide 26 mmol/L (22-30); Chloride 98 mmol/L (98-107); Glucose 239 mg/dL (74-99); Non-African American GFR(CKD) 49 (>60 ml/min/1.73 sqM); Sodium 140 mmol/L (137-145); Total Bilirubin 0.8 mg/dL (0.2-1.3); Total Protein 8.5 g/dL (6.3-8.2)
[2024-11-28 23:50] LABS: Basophils # (A) 0.07 10*3/uL (0.00-0.10); Basophils % (A) 0.7 %; Eosinophils # (A) 0.15 10*3/uL (0.04-0.35); Eosinophils % (A) 1.5 %; HCT 35.5 % (37.2-46.3); HGB 11.3 g/dL (12.0-15.0); Lymphocytes # (A) 2.95 10*3/uL (0.90-5.00); Lymphocytes % (A) 29.2 %; MCHC 31.8 g/dL (32.0-37.0); MCV 62.7 fL (80.0-97.0); Mean Platelet Volume 9.8 fL (9.5-12.2); Monocytes # (A) 0.96 10*3/uL (0.20-1.00); Monocytes % (A) 9.5 %; Neutrophils # (A) 5.93 10*3/uL (1.80-7.70); Neutrophils % (A) 58.8 %; Platelet Count 275 10*3/uL (140-440); RBC 5.66 10*6/uL (4.10-5.20); RDW 15.8 % (11.5-14.5); WBC 10.09 10*3/uL (4.50-10.00)
[2024-11-28 23:59] LABS: NT-Pro-B-Type Natriuretic Pept 596 pg/mL
--- NOTE | 2024-11-29 01:22 | XR ---
EXAM: XR Chest, 1 View CLINICAL HISTORY: pain TECHNIQUE: Frontal view of the chest. COMPARISON: 04/08/2021 FINDINGS: Lungs: Mild diffuse interstitial opacities throughout both lungs. Pleural space: Unremarkable. Heart: Cardiomegaly. Mediastinum: Unremarkable. Normal mediastinal contour. Bones/joints: No acute findings. Tubes, lines and devices: Sternal wires, left pacer, mediastinal clips, prosthetic heart valve, atrial appendage clip are again noted. IMPRESSION: Mild CHF.
--- NOTE | 2024-11-29 03:56 | XR ---
EXAM: XR Lumbosacral Spine, 3 Views CLINICAL HISTORY: went to use bathroom, got up sat on toilet and had cora red blood that filled the toilet bowl. fall, injury TECHNIQUE: Frontal, cone-down lateral and lateral views of the lumbar spine. 3 images COMPARISON: No relevant prior studies available. FINDINGS: Vertebrae: Osteopenia. No compression fracture. Normal alignment. Disc spaces: Moderate degenerative disc disease. Soft tissues: Unremarkable. Vasculature: Calcified aorta. IMPRESSION: No acute findings in the lumbar spine.
[2024-11-29 05:01] LABS: HCT 34.6 % (37.2-46.3); HGB 10.8 g/dL (12.0-15.0); MCH 19.4 pg (27.0-32.0); MCHC 31.2 g/dL (32.0-37.0); MCV 62.1 fL (80.0-97.0); Mean Platelet Volume 10.2 fL (9.5-12.2); Platelet Count 273 10*3/uL (140-440); RBC 5.57 10*6/uL (4.10-5.20); RDW 15.7 % (11.5-14.5); WBC 9.69 10*3/uL (4.50-10.00)
[2024-11-29] MEDS ORDERED: MAG HYDROX/AL HYDROX/SIMETH 30 ML CUP PO PRN (07:40)
[2024-11-29] MEDS ORDERED: NALOXONE 0.4 MG/ML 1 ML VIAL IV PRN (07:40)
[2024-11-29 11:41] LABS: Glucose,Whole Blood 261 mg/dL (70-110)
[2024-11-29] MEDS ORDERED: DEXTROSE 50% SYRINGE 50 ML IVP PRN ×2 (11:53)
[2024-11-29 12:52] LABS: African American GFR (CKD) 80 (>60 ml/min/1.73 sqM); Anion Gap 10 mmol/L; Blood Urea Nitrogen 21 mg/dL (7-17); Calcium 9.6 mg/dL (8.4-10.2); Carbon Dioxide 29 mmol/L (22-30); Chloride 100 mmol/L (98-107); Glucose 251 mg/dL (74-99); Non-African American GFR(CKD) 69 (>60 ml/min/1.73 sqM); Potassium 3.7 mmol/L (3.5-5.1); Sodium 139 mmol/L (137-145)
--- NOTE | 2024-11-29 12:56 | P.HPIM ---
History of Present Illness Patient is an 84-year-old female came in with blood in the stools. Patient denied any abdominal pain patient is found to have hemorrhoids. Patient denied any lightheadedness diaphoresis dyspnea. Patient has generalized weakness and has been falling at home patient has multiple falls. Family is unable to take care of the patient because of falls patient is legally blind. Patient was complaining of bilateral lower extremity swelling as per the patient it improved. Chest x-ray is read as mild CHF although patient's proBNP is not elevated and is only 596 patient clinically does not appear to be in CHF laying flat lumbar spine x-ray did not show any significant abnormality. REVIEW OF SYSTEMS: All other systems are negative except those mentioned in the HPI PHYSICAL EXAMINATION: GENERAL: The patient is alert and oriented x3, not in any acute distress. Well developed, well nourished. HEENT: Legally blind . No scleral icterus. No conjunctival pallor. Normocephalic, atraumatic. No pharyngeal erythema. No thyromegaly. CARDIOVASCULAR: S1 and S2 present. No murmurs, rubs, or gallops. PULMONARY: Chest is clear to auscultation, no wheezing or crackles. ABDOMEN: Soft, nontender, nondistended, normoactive bowel sounds. No palpable organomegaly. MUSCULOSKELETAL: No joint swelling or deformity. EXTREMITIES: No cyanosis, clubbing, or pedal edema. NEUROLOGICAL: Gross neurological examination did not reveal any focal deficits. SKIN: No rashes. Assessment and plan -Acute lower GI bleed secondary to hemorrhoids will order Anusol cream bleed resolved at this time we will just monitor the patient - Falls generalized weakness: Physical therapy Occupational Therapy evaluation, will need placement at subacute rehabilitation - Hypertension is on losartan and amlodipine which was resumed - Mild acute renal failure we will fluid resuscitate her with IV normal saline for a day. - Coronary artery disease - Type 2 diabetes mellitus For above-mentioned chronic medical problems patient will be resumed on appropri ate home medications DVT prophylaxis: Lovenox Past Medical History Past Medical History: Coronary Artery Disease (CAD), Diabetes Mellitus, Hyperte nsion Additional Past Medical History / Comment(s): CAD, severe aortic stenosis with aortic valve replacement, sick sinus syndrome with a previous pacemaker insertion, previous history of CVA, chronic back pain, neuropathy, scoliosis, endometriosis, and a history of brain concussion and diabetes mellitus. History of Any Multi-Drug Resistant Organisms: None Reported Past Surgical History: Appendectomy, Breast Surgery, Cardiac Valve Replacement, Heart Catheterization, Hysterectomy, Joint Replacement, Pacemaker, Tonsillectomy Additional Past Surgical History / Comment(s): aortic valve replacement, had chest tube for pleural effusion post replacment. 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 no current home care sevices. has a cane/walker glucometer, insulin pump. Smoking Status: Never smoker Past Alcohol Use History: None Reported Past Drug Use History: None Reported - Past Family History Mother Family Medical History: Cancer Son(s) Family Medical History: Rheumatoid Arthritis (RA) Additional Family Medical History / Comment(s): RHEUMATOID ARTHRITIS Father History Unknown: Yes Family Medical History: No Reported History Additional Family Medical History / Comment(s): from kidney failure Medications and Allergies Home Medications Medication Instructions Recorded Confirmed Type amLODIPine [Norvasc] 5 mg PO DAILY 07/17/16 11/29/24 History Atorvastatin [Lipitor] 40 mg PO HS tab 03/25/17 11/29/24 Rx Metoprolol Tartrate [Lopressor] 100 mg PO BID 07/09/17 11/29/24 History Losartan Potassium [Cozaar] 50 mg PO DAILY 03/21/21 11/29/24 History Acetaminophen Tab [Tylenol] 325 mg PO BID 06/06/24 11/29/24 History Insulin Aspart [NovoLOG Flexpen] 25 units SQ TID-W/MEALS 06/06/24 11/29/24 History Multivitamins, Thera [Multivitamin 1 tab PO DAILY 11/29/24 11/29/24 History (formulary)] icosapent ethyL [Icosapent Ethyl] 2 gm PO BID 11/29/24 11/29/24 History Allergies Allergy/AdvReac Type Severity Reaction Status Date / Time adhesive tape Allergy Rash/Hives Verified 11/29/24 09:08 Anesthetics - Amide Type - Allergy Unknown Verified 11/29/24 09:08 Select A Anesthetics - Karlee Type- Allergy Unknown Verified 11/29/24 09:08 Parabens codeine Allergy Rash/Hives Verified 11/29/24 09:08 milk Allergy Unknown Verified 11/29/24 09:08 orange Allergy Rash/Hives Verified 11/29/24 09:08 metformin [From Glucophage] AdvReac Nausea & Verified 11/29/24 09:08 Vomiting Penicillins AdvReac Nausea Verified 11/29/24 09:08 Physical Exam Vitals: Vital Signs Temp Pulse Resp BP Pulse Ox 11/29/24 12:12 97.8 F 80 18 147/86 93 L 11/29/24 10:50 97.9 F 70 18 152/66 92 L 11/29/24 07:00 71 16 145/65 93 L 11/29/24 05:00 68 16 137/68 94 L 11/29/24 03:00 76 16 121/61 93 L 11/29/24 01:00 76 16 130/62 95 11/29/24 00:30 78 16 133/62 95 11/28/24 22:56 98.8 F 82 16 137/74 97 Intake and Output 11/28/24 11/29/24 11/29/24 22:59 06:59 14:59 Other: Weight 74.843 kg 74.843 kg Results CBC & Chem 7: 11/29/24 04:23 11/29/24 12:10 Labs: Abnormal Lab Results - Last 24 Hours (Table) 11/28/24 11/28/24 11/28/24 Range/Units 23:20 23:25 23:40 WBC (4.50-10.00) 10*3/uL RBC (4.10-5.20) 10*6/uL Hgb (12.0-15.0) g/dL Hct (37.2-46.3) % MCV (80.0-97.0) fL MCH (27.0-32.0) pg MCHC (32.0-37.0) g/dL APTT 21.0 L (22.0-30.0) sec BUN 29 H (7-17) mg/dL Creatinine 1.07 H (0.52-1.04) mg/dL Glucose 239 H (74-99) mg/dL POC Glucose (mg/dL) (70-110) mg/dL Plasma Lactic Acid Pepe 2.1 H* (0.7-2.0) mmol/L Calcium 10.6 H (8.4-10.2) mg/dL Alkaline Phosphatase 153 H (38-126) U/L Total Protein 8.5 H (6.3-8.2) g/dL 11/28/24 11/29/24 11/29/24 Range/Units 23:40 04:23 11:39 WBC 10.09 H (4.50-10.00) 10*3/uL RBC 5.66 H 5.57 H (4.10-5.20) 10*6/uL Hgb 11.3 L 10.8 L (12.0-15.0) g/dL Hct 35.5 L 34.6 L (37.2-46.3) % MCV 62.7 L 62.1 L (80.0-97.0) fL MCH 20.0 L 19.4 L (27.0-32.0) pg MCHC 31.8 L 31.2 L (32.0-37.0) g/dL APTT (22.0-30.0) sec BUN (7-17) mg/dL Creatinine (0.52-1.04) mg/dL Glucose (74-99) mg/dL POC Glucose (mg/dL) 261 H (70-110) mg/dL Plasma Lactic Acid Pepe (0.7-2.0) mmol/L Calcium (8.4-10.2) mg/dL Alkaline Phosphatase (38-126) U/L Total Protein (6.3-8.2) g/dL 11/29/24 Range/Units 12:10 WBC (4.50-10.00) 10*3/uL RBC (4.10-5.20) 10*6/uL Hgb (12.0-15.0) g/dL Hct (37.2-46.3) % MCV (80.0-97.0) fL MCH (27.0-32.0) pg MCHC (32.0-37.0) g/dL APTT (22.0-30.0) sec BUN 21 H (7-17) mg/dL Creatinine (0.52-1.04) mg/dL Glucose 251 H (74-99) mg/dL POC Glucose (mg/dL) (70-110) mg/dL Plasma Lactic Acid Pepe (0.7-2.0) mmol/L Calcium (8.4-10.2) mg/dL Alkaline Phosphatase (38-126) U/L Total Protein (6.3-8.2) g/dL
[2024-11-29 13:54] LABS: Glucose,Whole Blood 257 mg/dL (70-110)
[2024-11-29] MEDS: METOPROLOL TARTRATE 50 MG TAB PO SCH (13:59)
[2024-11-29] MEDS: INSULIN LISPRO (HumaLOG) 100 UNIT/ML 10 mL VL SQ SCH ×2 (13:59)
[2024-11-29] MEDS: amLODIPine 5 MG TAB PO SCH (13:59)
[2024-11-29] MEDS: HYDROCORTISONE SUPPOSITORY 25 MG SUPP RECTAL SCH (16:58)
[2024-11-29 17:48] LABS: Glucose,Whole Blood 152 mg/dL (70-110)
[2024-11-29] MEDS: ACETAMINOPHEN TAB 325 MG TAB PO PRN (17:53)
[2024-11-29 21:12] LABS: Glucose,Whole Blood 185 mg/dL (70-110)
[2024-11-29] MEDS: ATORVASTATIN 40 MG TAB PO SCH (21:18)
[2024-11-30 03:32] LABS: HCT 34.3 % (37.2-46.3); HGB 10.7 g/dL (12.0-15.0); MCH 19.5 pg (27.0-32.0); MCHC 31.2 g/dL (32.0-37.0); MCV 62.6 fL (80.0-97.0); Mean Platelet Volume 9.5 fL (9.5-12.2); Platelet Count 256 10*3/uL (140-440); RBC 5.48 10*6/uL (4.10-5.20); RDW 15.7 % (11.5-14.5); WBC 11.74 10*3/uL (4.50-10.00)
[2024-11-30 03:57] LABS: African American GFR (CKD) 76 (>60 ml/min/1.73 sqM); Anion Gap 7 mmol/L; Blood Urea Nitrogen 20 mg/dL (7-17); Calcium 9.4 mg/dL (8.4-10.2); Carbon Dioxide 27 mmol/L (22-30); Chloride 103 mmol/L (98-107); Glucose 228 mg/dL (74-99); Non-African American GFR(CKD) 66 (>60 ml/min/1.73 sqM); Potassium 3.6 mmol/L (3.5-5.1); Sodium 137 mmol/L (137-145)
[2024-11-30 06:02] LABS: Glucose,Whole Blood 236 mg/dL (70-110)
[2024-11-30 07:43] VITALS: RESP 17
[2024-11-30] MEDS: LOSARTAN 50 MG TAB PO SCH (08:56)
[2024-11-30] MEDS: MULTIVITAMINS, THERA 1 EACH TAB PO SCH (08:57)
[2024-11-30] MEDS ORDERED: ENOXAPARIN 40 MG/0.4 ML SYRINGE SQ SCH (09:00)
[2024-11-30 12:08] LABS: Glucose,Whole Blood 145 mg/dL (70-110)
--- NOTE | 2024-11-30 13:45 | CDI ---
Documentation Clarification Form Date: 11/30/2024 01:28:39 PM From: Sulema Jaimes RN CDIS Phone: [phone] Admit Date: 11/29/2024 07:40:00 AM Patient Name: Toña Ovalle Visit Number: [id number] Discharge Date: ATTENTION: The Clinical Documentation Specialists (CDI) and [facility] Coding Staff appreciate your assistance in clarifying documentation. Please respond to the clarification below the line at the bottom and electronically sign. The CDI & [facility] Coding staff will review the response and follow-up if needed. Please note: Queries are made part of the Legal Health Record. If you have any questions, please contact the author of this message via ITS. Doctor/Provider: Marilynn Wade Mild LATA is documented which may lack sufficient clinical evidence/support in the medical record. Additional clarification is requested. History/Risk Factors: 84 year old female presents to the ED having blood with stool and generalized weakness. Medical history: CAD, DM, HTN, Chronic back pain and pacemaker. Clinical Indicators: 11/28 BUN 29 CR 1.07 GFR 49 11/29 BUN 21 CR 0.80 GFR 69 11/30 BUN 20 CR 0.83 GFR 66 Treatment: BUN, CR, GFR [id number] 11/28, 11/29 and 11/30 Please clarify if LATA is a valid diagnosis? [ ] No, LATA is ruled out [ ] Yes, LATA is present as evidence by (additional clinical support): [ ] Other (please specify diagnosis) [ ] Unable to determine (Template Last Revised: January 2024) Dr. pierce dictated on this patient; I did not see the patient only had put orders in. MTDD
[2024-11-30 15:32] VITALS: BP 123/80; PULSE 68; TEMP 97.1
[2024-11-30 17:10] LABS: Glucose,Whole Blood 119 mg/dL (70-110)
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
--- NOTE | 2024-12-07 11:59 | CDI ---
Date: 12/07/2024 From: Sulema [email or web address] Email: [email or web address] Admit Date: 11/29/2024 07:40:00 AM Patient Name: Toña Ovalle Visit Number: [id number] Discharge Date: 11/30/2024 06:48:00 PM ATTENTION: The Clinical Documentation Specialists (CDI) and [facility] Coding Staff appreciate your assistance in clarifying documentation. Please respond to the clarification below the line at the bottom and electronically sign. The CDI & [facility] Coding staff will review the response and follow-up if needed. Please note: Queries are made part of the Legal Health Record. If you have any questions, please contact the author of this message via ITS. Dr. Saul Florian, Mild acute renal failure is documented in the H&P Report on 11/29/2024 - which may lack sufficient clinical evidence/support in the medical record. Additional clarification is requested. History/Risk Factors: 84 year old female presents to the ED having blood with stool and generalized weakness. Medical history: CAD, DM, HTN, Chronic back pain and pacemaker. Clinical Indicators: Lab Results: o 11/28/2024: BUN 29 CR 1.07 GFR 49 o 11/29/2024: BUN 21 CR 0.80 GFR 69 o 11/30/2024: BUN 20 CR 0.83 GFR 66 Treatment: BUN, Creatinine, and GFR monitored with trend (11/28/2024, 11/29/2024, 11/30/2024) Please clarify if acute renal failure (LATA) is a valid diagnosis? [ ] No, acute renal failure (LATA) is ruled out [x ] Yes, acute renal failure (LATA) is present as evidenced by (please provide additional clinical support): [ ] Other (please specify diagnosis) [ ] Unable to determine Reference: KDIGO LATA Criteria An increase in serum creatinine by greater than or equal to 0.3 mg/dL within 48 hours; or An increase in serum creatinine by greater than or equal to 1.5 times baseline, which is known or presumed to have occurred within the prior 7 days; or A urine volume less than 0.5 ml/kg/h for 6 hours. When the baseline is unknown the lowest creatinine during admission assumed to be baseline MTDD
== END 2024-11-30 18:48 | disposition home health service (06) | DRG 394 ==
LOC: EC 22:55 → 5NMEDONC 11-29 07:40 → 1SOBS 11-29 11:52 → 5NMEDONC 11-30 10:08
PROVIDERS: ADMIT Hospitalist; ATTEND Hospitalist
DX: K64.9 Unspecified hemorrhoids (principal); K92.1 Melena; N17.9 Acute kidney failure, unspecified; I11.0 Hypertensive heart disease with heart failure; I50.9 Heart failure, unspecified; E11.42 Type 2 diabetes mellitus with diabetic polyneuropathy; I35.0 Nonrheumatic aortic (valve) stenosis; Z79.4 Long term (current) use of insulin; I25.10 Atherosclerotic heart disease of native coronary artery without angina pectoris; H54.8 Legal blindness, as defined in USA; R53.1 Weakness; M41.9 Scoliosis, unspecified; R29.6 Repeated falls; W19.XXXA Unspecified fall, initial encounter; Y92.009 Unspecified place in unspecified non-institutional (private) residence as the place of occurrence of the external cause; Z79.899 Other long term (current) drug therapy; Z86.73 Personal history of transient ischemic attack (TIA), and cerebral infarction without residual deficits; Z90.710 Acquired absence of both cervix and uterus; Z95.0 Presence of cardiac pacemaker; Z95.2 Presence of prosthetic heart valve; Z91.81 History of falling; Z88.0 Allergy status to penicillin; Z88.5 Allergy status to narcotic agent; Z91.011 Allergy to milk products; Z88.4 Allergy status to anesthetic agent
CPT/HCPCS: 36415; 71045; 72100; 80048; 80053; 83036; 83605; 83880; 84484; 85025; 85027; 85730; 86850; 86900; 86901; 93005; 99285